=== PATIENT | male | born 1950 | race Caucasian/White ===

== ENCOUNTER 2021-09-05 08:39 | Emergency (ER) | payer MEDICARE, MEDICAID, SELFPAY ==
--- NOTE | ~2021-09-05 | XR_ITS ---
EXAMINATION: XR knee RT min 4V DATE: 09/05/2021 09:56 INDICATION: Diffuse right knee pain post fall 3 months prior TECHNIQUE: Anteroposterior, 2 oblique and crosstable lateral views of the right knee were obtained COMPARISON: None. FINDINGS: Alignment is normal. No fracture. Chondrocalcinosis at the medial and lateral compartments. Mild darwin nt space narrowing and small marginal osteophytes at the medial compartment. Tiny marginal osteophyte s at the lateral and patellofemoral compartments. No joint effusion/layering lipohemarthrosis. Small enthesophyte at the proximal pole of the patella. Soft tissues are unremarkable. IMPRESSION: 1. Chondrocalcinosis and mild medial compartment predominant tricompartmental osteoarthritis at the r ight knee. Reviewed, dictated and finalized at location A. [facility] IMPRESSION: 1. Chondrocalcinosis and mild medial compartment predominant tricompartmental o steoarthritis at the right knee.
[2021-09-05 08:53] VITALS: BP 119/71; PULSE 80; RESP 16; TEMP 36.4; O2SAT 97
--- NOTE | 2021-09-05 09:33 | ED.LOWEXIN ---
HPI - Extremity Injury (Lower) General Chief Complaint: Extremity Injury, Lower Stated Complaint: right knee pain Time Seen by Provider: 09/05/21 09:28 Source: patient and RN notes reviewed Mode of arrival: ambulatory Limitations: no limitations History of Present Illness HPI Narrative: 71-year-old male presents the concern for right knee pain. He reports he fell landing on the anterior knee 3 months ago. Reports since then he has had right knee pain, swelling. Reports he is used Tylenol, ice and elevation. Reports worsening pain with weightbearing. Reports he has been using a cane to assist him with ambulation. Reports the knee has given out several times. Reports he has an appointment with orthopedics at the end of September for evaluation of the knee. He denies any redness, warmth, fever, open skin. MD complaint: knee injury Related Data Allergies Allergy/AdvReac Type Severity Reaction Status Date / Time No Known Allergies Allergy Verified 09/05/21 09:26 Review of Systems Review of Systems: CONSTITUTIONAL: Denies malaise, chills, sweats, or fever. SKIN: Denies rash or itching, redness, warmth, open skin MUSCULOSKELETAL: Reports right knee pain and swelling NEUROLOGIC: Denies numbness, weakness All systems reviewed & are unremarkable except as noted in HPI and below PMFSH Past Medical History Medical History (Updated 09/05/21 @ 10:08 by Nena Armenta NP) Anxiety Arthritis Back fracture T12 fracture in 1992. COPD (chronic obstructive pulmonary disease) Depression History of fracture of left hip Melanoma Melanoma x2 excised from the chest. Prostate cancer Recently discovered on biopsy. Apparently low-grade and is being followed by surveillance. 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 Tobacco use disorder, severe, dependence Surgical History Surgical History History of back surgery Hx of appendectomy Status post surgical removal of malignant neoplasm of skin Including melanoma from the chest and basal cell carcinoma from the cheek and arms. Status post-operative repair of closed fracture of left hip Family History Family History Mother Congestive heart failure Social History Social History Social History: The patient is to his 3rd in a lives in [place]. He has 12 children and is expecting a baby sometime next spring. He is retired from working for the [employer]. He designates his , Nicole, as his surrogate decision maker and he wishes to be a full code. Smoking packs per day: 2 Smoking cigarettes per day: 40.0 Years smoked: 50 Smoking pack-years: 100.00 Smoking status: Current every day smoker Tobacco type: cigarettes Alcohol intake: never Substance use: never Substance use type: does not use Gender identity (if verbalized by the patient): Male Spiritual care concerns: No Agree to blood products: Yes Comments At time of signature, agree with nursing past medical, surgical, social and family history. There is no relevant family history pertinent to the presenting complaint Exam Narrative: GENERAL: Well-appearing, well-nourished, and in no acute distress. HEAD: Normocephalic, atraumatic. EYES: PERRLA, conjunctivae clear NECK: Supple. CHEST: Speaks in full sentences. No respiratory distress. HEART: Regular rate and rhythm. Normal and equal peripheral pulses. EXTREMITIES: Right knee has normal strength and sensation. Mild edema, no ecchymosis. 5/5 strength with knee flexion and extension. Normal sensation with sensitivity to light touch and pain. No point tenderness. No open wounds, no skin tenting, no devitalized tissue or atrophy, no trophic changes, no obvious deformity, alignment normal, nearby joints and
== END 2021-09-05 10:20 | disposition home or self-care (01) ==
PROVIDERS: Emergency Provider Nurse Practitioner; PCP Family Medicine
DX: M76.9 Unspecified enthesopathy, lower limb, excluding foot (principal); M11.261 Other chondrocalcinosis, right knee; F17.210 Nicotine dependence, cigarettes, uncomplicated; M19.90 Unspecified osteoarthritis, unspecified site; J44.9 Chronic obstructive pulmonary disease, unspecified; F41.9 Anxiety disorder, unspecified; F32.A Depression, unspecified; Z85.820 Personal history of malignant melanoma of skin; Z85.818 Personal history of malignant neoplasm of other sites of lip, oral cavity, and pharynx; Z92.21 Personal history of antineoplastic chemotherapy; Z92.3 Personal history of irradiation
CPT/HCPCS: 73564; 99213; G0463

== ENCOUNTER 2021-11-20 15:06 | Emergency (ER) | payer MEDICARE, MEDICAID, SELFPAY ==
[2021-11-20 15:34] VITALS: BP 115/78; PULSE 75; RESP 18; TEMP 36.7; O2SAT 95
--- NOTE | 2021-11-20 15:41 | ED.UPPEXIN ---
HPI - Extremity Injury (Upper) General Chief Complaint: Extremity Injury, Upper Stated Complaint: shoulder injury Time Seen by Provider: 11/20/21 15:50 Source: patient, RN notes reviewed and old records reviewed Mode of arrival: ambulatory Limitations: no limitations History of Present Illness HPI narrative: 71-year-old [facility] of right upper back pain under right shoulder blade x2 weeks. 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 Pain has been constant since then, reports pain is 7 out of 10 at rest, and 10 out of 10 with movement. Pain worse when raising right arm. Denies numbness or tingling in right arm. Reports pain when laying down and trying to sleep. Has taken ibuprofen a couple times. Took Tylenol 2 tabs this morning, and usually twice daily. Has been applying ice, feels that may be helpful. Has been applying topical pain medicine, is not sure its helping. Has continued to work. States they still have work to do. Denies chest pain or pressure. Some parts of this dictation were generated by voice recognition software and may contain typographical and/or grammatical inaccuracies. complaint: injury to: right Handedness: right Related Data Allergies Allergy/AdvReac Type Severity Reaction Status Date / Time No Known Allergies Allergy Verified 11/20/21 15:44 Review of Systems Review of Systems: CONSTITUTIONAL: Denies fever, chills, or sweats. EYES: Denies visual changes, redness, or discharge. ENT: Denies rhinorrhea, congestion, sore throat, or otalgia. CARDIOVASCULAR: Denies chest pain, palpitations, or edema. RESPIRATORY: Denies cough or dyspnea. GASTROINTESTINAL: Denies abdominal pain, nausea, vomiting, or diarrhea. GENITOURINARY: Denies dysuria or hematuria. SKIN: Denies rash or itching. MUSCULOSKELETAL: Right upper back pain, under right shoulder blade. NEUROLOGIC: Denies headache, numbness, or weakness. PSYCHIATRIC: Denies anxiety or depression. All other systems reviewed are negative, except as documented in HPI. All systems reviewed & are unremarkable except as noted in HPI and below PMFSH Past Medical History Medical History (Updated 11/20/21 @ 16:15 by Radha Henry, SANDER) Anxiety Arthritis Asthma Back fracture T12 fracture in 1992. COPD (chronic obstructive pulmonary disease) Depression History of fracture of left hip Melanoma Melanoma x2 excised from the chest. Prostate cancer Recently discovered on biopsy. Apparently low-grade and is being followed by surveillance. 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 Tobacco use disorder, severe, dependence Surgical History Surgical History History of back surgery Hx of appendectomy Status post surgical removal of malignant neoplasm of skin Including melanoma from the chest and basal cell carcinoma from the cheek and arms. Status post-operative repair of closed fracture of left hip Family History Family History Mother Congestive heart failure Social History Social History Social History: The patient is to his 3rd in a lives in [place]. He has 12 children and is expecting a baby sometime next spring. He is retired from working for the [employer]. He designates his , Nicole, as his surrogate decision maker and he wishes to be a full code. Smoking packs per day: 1 Smoking cigarettes per day: 20.0 Years smoked: 55 Smoking pack-years: 55.00 Smoking status: Current every day smoker Tobacco type: cigarettes Alcohol intake: never Substance use: never Substance use type: does not use Gender identity (if verbalized by the patient): Male Spiritual
== END 2021-11-20 16:25 | disposition home or self-care (01) ==
PROVIDERS: Emergency Provider Nurse Practitioner Family; PCP Family Medicine
DX: M54.6 Pain in thoracic spine (principal); F17.210 Nicotine dependence, cigarettes, uncomplicated; M19.90 Unspecified osteoarthritis, unspecified site; J44.9 Chronic obstructive pulmonary disease, unspecified; Z85.820 Personal history of malignant melanoma of skin; Z85.828 Personal history of other malignant neoplasm of skin; Z85.46 Personal history of malignant neoplasm of prostate; Z85.818 Personal history of malignant neoplasm of other sites of lip, oral cavity, and pharynx; Z92.21 Personal history of antineoplastic chemotherapy; Z92.3 Personal history of irradiation
CPT/HCPCS: 99213; G0463

== ENCOUNTER 2021-12-17 10:50 | Emergency (ER) | payer MEDICARE, MEDICAID, SELFPAY ==
--- NOTE | ~2021-12-17 | XR_ITS ---
EXAMINATION: XR chest 2V DATE: 12/17/2021 11:16 INDICATION: 2 weeks of productive cough TECHNIQUE: PA and lateral views of the chest were obtained. COMPARISON: Chest radiograph dated 09/08/2019 FINDINGS: Small calcified nodule at the left costophrenic angle consistent with old granulomatous disease. Mild left apical pleural-parenchymal scarring. No other airspace opacities, pulmonary edema, pleural effu jonah or pneumothorax., The cardiomediastinal silhouette is normal. Thoracic kyphosis. Incompletely vi sualized instrumented posterior spinal fusion extending caudally from T9 into the upper lumbar spine and beyond the inferior margin of the [id number] with bilateral vertical rods and laminar wire and hook fixation. This spans chronic compression fractures, mild at T10 and severe with 80% anterior ve rtebral body height loss at T12. IMPRESSION: 1. No acute cardiopulmonary disease. Reviewed, dictated and finalized at location A.
--- NOTE | 2021-12-17 10:58 | ED.URI ---
HPI - URI/Sore Throat General Chief Complaint: Upper Respiratory Infection Stated Complaint: Cough Time Seen by Provider: 12/17/21 10:58 Source: patient Mode of arrival: ambulatory Limitations: no limitations History of Present Illness HPI Narrative: 71-year-old male with history of COPD presents with complaint of cough and chest congestion for 2 weeks. Denies fever chills. Does not use inhalers for his COPD. Has not been taking any [id number] medications to treat symptoms. States he coughs and coughs and coughs until he can get mucus out of his chest. States cough is constant, worse at night when laying in bed. Denies shortness of breath. All systems reviewed and negative except as noted above. Related Data Home Medications Medication Instructions Recorded Confirmed lorazepam 2 mg PO BID 12/17/21 12/17/21 omeprazole 40 mg PO DAILY 12/17/21 12/17/21 Allergies Allergy/AdvReac Type Severity Reaction Status Date / Time No Known Allergies Allergy Verified 12/17/21 10:54 Review of Systems Review of Systems: CONSTITUTIONAL: Denies fever, chills, or sweats. EYES: Denies visual changes, redness, or discharge. ENT: Denies rhinorrhea, congestion, sore throat, or otalgia. CARDIOVASCULAR: Denies chest pain, palpitations, or edema. RESPIRATORY: Reports cough. Denies dyspnea. GASTROINTESTINAL: Denies abdominal pain, nausea, vomiting, or diarrhea. GENITOURINARY: Denies dysuria or hematuria. SKIN: Denies rash or itching. MUSCULOSKELETAL: Denies back pain, joint pain, or myalgia. NEUROLOGIC: Denies headache, numbness, or weakness. PSYCHIATRIC: Denies anxiety or depression. All other systems reviewed are negative, except as documented in HPI. [facility] Past Medical History Medical History (Updated 12/17/21 @ 12:08 by Krystle Acuna NP) Anxiety Arthritis Asthma Back fracture T12 fracture in 1992. COPD (chronic obstructive pulmonary disease) Depression History of fracture of left hip Melanoma Melanoma x2 excised from the chest. Prostate cancer Recently discovered on biopsy. Apparently low-grade and is being followed by surveillance. 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 Tobacco use disorder, severe, dependence Surgical History Surgical History History of back surgery Hx of appendectomy Status post surgical removal of malignant neoplasm of skin Including melanoma from the chest and basal cell carcinoma from the cheek and arms. Status post-operative repair of closed fracture of left hip Family History Family History Mother Congestive heart failure Social History Social History Social History: The patient is to his 3rd in a lives in [place]. He has 12 children and is expecting a baby sometime next spring. He is retired from working for the [employer]. He designates his , Nicole, as his surrogate decision maker and he wishes to be a full code. Smoking packs per day: 1 Smoking cigarettes per day: 20.0 Years smoked: 55 Smoking pack-years: 55.00 Smoking status: Current every day smoker Tobacco type: cigarettes Alcohol intake: never Substance use: never Substance use type: does not use Gender identity (if verbalized by the patient): Male Spiritual care concerns: No Agree to blood products: Yes Comments At time of signature, agree with nursing past medical, surgical, social and family history. There is no relevant family history pertinent to the presenting complaint. Exam Narrative: GENERAL: This is a well-nourished, well-developed patient, in no apparent distress. HEAD: normocephalic, atraumatic. EYES: PERRL. Sclera clear/white. Vision is grossly intact. EARS: External ears normal, auditory can
[2021-12-17 10:59] VITALS: BP 109/75; PULSE 85; RESP 20; TEMP 36.4; O2SAT 95
[2021-12-17 11:30] VITALS: PULSE 90; RESP 20; O2SAT 95
[2021-12-17] MEDS: ALBUTEROL SULFATE NEB 2.5 MG/3 ML INH INHALATION (11:30)
[2021-12-17 12:00] VITALS: PULSE 92; RESP 20; O2SAT 97
== END 2021-12-17 12:13 | disposition home or self-care (01) ==
PROVIDERS: Emergency Provider Nurse Practitioner Family; PCP Family Medicine
DX: J44.1 Chronic obstructive pulmonary disease with (acute) exacerbation (principal); F17.210 Nicotine dependence, cigarettes, uncomplicated; M19.90 Unspecified osteoarthritis, unspecified site; Z85.820 Personal history of malignant melanoma of skin; Z85.46 Personal history of malignant neoplasm of prostate; Z85.818 Personal history of malignant neoplasm of other sites of lip, oral cavity, and pharynx
CPT/HCPCS: 71046; 94640; 99213; G0463

== ENCOUNTER 2023-01-28 08:36 | Outpatient (CLI) | payer OTHER, SELFPAY ==
[2023-01-28 08:48] LABS: Basophils Percent Auto 0.5 % (0.2-1.2); Eosinophils Absolute Auto 0.3 K/mm3 (0-0.3); Eosinophils Percent Auto 5.5 % (0-4.4); Hematocrit 43.7 % (42.0-52.0); Immature Granulocyte Absolute 0.01 K/mm3 (0.00-0.031); Immature Granulocyte Percent A 0.2 % (0-0.5); Lymphocytes Absolute Auto 1.25 K/mm3 (0.9-3.2); Mean Corpuscular Hemoglobin 30.2 pg (26-34); Mean Corpuscular Volume 94.4 fl (80-100); Mean Platelet Volume 9.5 fl (7.4-10.4); Monocytes Absolute Auto 0.5 K/mm3 (0.1-0.6); Monocytes Percent Auto 8.8 % (2.6-8.5); Neutrophils Absolute Auto 3.6 K/mm3 (1.3-6.7); Platelet Count Result 228 k/mm3 (150-375); Red Blood Count 4.63 M/mm3 (4.6-6.20); Red Cell Distribution Width 13.5 % (11.5-14.5); White Blood Count 5.7 K/mm3 (4.5-10.0)
[2023-01-28 09:25] LABS: Alanine Aminotransferase 40 U/L (6-50); Albumin Level 4.5 g/dL (3.5-5.1); Alkaline Phosphatase 74 U/L (38-126); Anion Gap 4 mmol/L (8-16); Aspartate Amino Transferase 39 U/L (17-59); Bilirubin,Total 0.7 mg/dL (0.2-1.3); Blood Urea Nitrogen 27 mg/dL (9-20); Calcium 8.7 mg/dL (8.4-10.2); Carbon Dioxide 35 mmol/L (22-30); Chloride 102 mmol/L (98-107); Cholesterol 183 mg/dL (0-200); Estimated Glomerular Filt Rate > 60; Glucose 106 mg/dL (65-110); HDL Direct 48 mg/dL; Potassium 4.9 mmol/L (3.4-5.0); Sodium 141 mmol/L (137-145); Triglycerides 53 mg/dL (<150)
[2023-01-28 09:36] LABS: LDL Cholesterol Direct 109 mg/dL
[2023-01-28 09:39] LABS: Hemoglobin A1C 5.7 % (<5.7)
== END 2023-01-28 08:37 | disposition home or self-care (01) ==
LOC: ANHLAB 08:38
PROVIDERS: Nurse Practitioner Family; PCP Family Medicine; Visit Provider Family Medicine
DX: Z00.00 Encounter for general adult medical examination without abnormal findings (principal); I10 Essential (primary) hypertension; E78.5 Hyperlipidemia, unspecified; R73.01 Impaired fasting glucose
CPT/HCPCS: 36415; 80053; 80061; 83036; 84443; 85025

== ENCOUNTER 2023-02-14 10:56 | Emergency (ER) | payer OTHER, SELFPAY ==
--- NOTE | 2023-02-14 11:01 | ED.NECK ---
HPI - Neck Pain/Injury General Chief Complaint: Neck Pain/Injury Stated Complaint: Neck Pain Time Seen by Provider: 02/14/23 11:25 Source: patient and RN notes reviewed Mode of arrival: ambulatory Limitations: no limitations History of Present Illness HPI Narrative: 72-year-old male presents with concern for right-sided neck pain and muscle spasm. He reports 6 day history of symptoms. Reports prior to his neck pain starting he was doing a lot of heavy work, shoveling, lifting heavy items, working in his garden. He denies any injury or trauma. Reports pain was mild at the 1st but he did more work and it hurt worse. Reports pain is that the base of the head to the right and radiates down to the right trapezius area. He reports it hurts to look up, it hurts to rotate the head left or right, it hurts worse to rotate to the right. He denies any mid cervical tenderness. He reports he has been using pain patches and Tylenol with little relief. He denies any weakness in any extremity, numbness or tingling in the fingers. He denies fever. He denies history of problems with his neck, neck injury. MD complaint: neck pain Related Data Home Medications Medication Instructions Recorded Confirmed phenelzine 15 mg tablet 15 mg PO TID 01/10/23 02/14/23 Allergies Allergy/AdvReac Type Severity Reaction Status Date / Time No Known Allergies Allergy Verified 02/14/23 11:08 Review of Systems Review of Systems: CONSTITUTIONAL: Denies malaise, chills, sweats, or fever. CARDIOVASCULAR: Denies chest pain, palpitations, or edema. RESPIRATORY: Denies cough or dyspnea. GASTROINTESTINAL: Denies abdominal pain, nausea, vomiting, diarrhea, loss of bowel function GENITOURINARY: Denies dysuria, hematuria, frequency, loss of bladder function. SKIN: Denies rash or itching. MUSCULOSKELETAL: Reports right-sided neck pain NEUROLOGIC: Denies numbness, weakness, or headache. All systems reviewed & are unremarkable except as noted in HPI and below PMFSH Past Medical History Medical History (Updated 02/14/23 @ 11:31 by Nena Armenta NP) Anxiety Arthritis Asthma Back fracture T12 fracture in 1992. COPD (chronic obstructive pulmonary disease) Depression GERD without esophagitis History of fracture of left hip Hyperlipidemia Melanoma Melanoma x2 excised from the chest. Prostate cancer Recently discovered on biopsy. Apparently low-grade and is being followed by surveillance. 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 Tobacco use disorder, severe, dependence Surgical History Surgical History History of back surgery Hx of appendectomy Status post surgical removal of malignant neoplasm of skin Including melanoma from the chest and basal cell carcinoma from the cheek and arms. Status post-operative repair of closed fracture of left hip Family History Family History Mother Congestive heart failure Social History Social History (Updated 01/10/23 @ 10:00 by Mary Jurado NP) Social History: The patient is to his 3rd and lives in [place]. He has 13 children, youngest is 3. He is retired, worked for the [employer]. He designates his , Nicole, as his surrogate decision maker and he wishes to be a full code. Smoking packs per day: 1 Smoking cigarettes per day: 20.0 Years smoked: 55 Smoking pack-years: 55.00 Smoking status: Current every day smoker Tobacco type: cigarettes Alcohol intake: never Substance use: never Substance use type: does not use Lack of Transportation: No Lack of Food: Never True Current Housing: I Have Housing Concerned About Future Housing: No Difficulty Paying Gas/Electric Bills: No Difficulty Paying for Meds: No Currently Unemployed: No Education: Bachelor
[2023-02-14 11:03] VITALS: BP 111/76; PULSE 76; RESP 18; TEMP 36.7; O2SAT 98
== END 2023-02-14 11:40 | disposition home or self-care (01) ==
PROVIDERS: Emergency Provider Nurse Practitioner; PCP Family Medicine
DX: M43.6 Torticollis (principal); F17.210 Nicotine dependence, cigarettes, uncomplicated; M19.90 Unspecified osteoarthritis, unspecified site; J45.909 Unspecified asthma, uncomplicated; E78.5 Hyperlipidemia, unspecified; K21.9 Gastro-esophageal reflux disease without esophagitis; Z85.820 Personal history of malignant melanoma of skin; Z85.46 Personal history of malignant neoplasm of prostate; Z85.89 Personal history of malignant neoplasm of other organs and systems
CPT/HCPCS: 99213; G0463

== ENCOUNTER 2023-05-19 10:49 | Emergency (ER) | payer OTHER, SELFPAY ==
[2023-05-19 11:02] VITALS: BP 93/69; PULSE 78; RESP 16; TEMP 36.3; O2SAT 99
--- NOTE | 2023-05-19 11:55 | ED.GENADULT ---
HPI - General Adult General Chief complaint: Extremity Problem,Nontraumatic Stated complaint: Rt Side Pain Time Seen by Provider: 05/19/23 11:55 Source: patient Mode of arrival: ambulatory Limitations: no limitations History of Present Illness HPI narrative: 72-year-old male patient presents to the [facility] with complaints of right-sided rib pain. Patient states he has working outside a lot recently digging holes and picking pairs out of a tree with lot of reaching. Patient states for the past 3 days he has had some musculoskeletal rib pain. Denies taking anything for his pain. Denies any falls or traumas. Patient states it is sore whenever he coughs or takes a deep breathing. Patient does have history of COPD and currently still smokes Related Data Home Medications Medication Instructions Recorded Confirmed sildenafil 25 mg tablet 25 mg PO PRN PRN Erectile 05/19/23 05/19/23 Dysfunction Allergies Allergy/AdvReac Type Severity Reaction Status Date / Time No Known Allergies Allergy Verified 05/19/23 10:53 Review of Systems Review of Systems: CONSTITUTIONAL: Denies fever, chills, or sweats. EYES: Denies visual changes, redness, or discharge. ENT: Denies rhinorrhea, congestion, sore throat, or otalgia. CARDIOVASCULAR: positive right-sided chest /rib pain, palpitations, or edema. RESPIRATORY: Denies cough or dyspnea. GASTROINTESTINAL: Denies abdominal pain, nausea, vomiting, or diarrhea. GENITOURINARY: Denies dysuria or hematuria. SKIN: Denies rash or itching. MUSCULOSKELETAL: Denies back pain, joint pain, or myalgia. NEUROLOGIC: Denies headache, numbness, or weakness. PSYCHIATRIC: Denies anxiety or depression. [facility] Past Medical History Medical History Anxiety Arthritis Asthma Back fracture T12 fracture in 1992. COPD (chronic obstructive pulmonary disease) Depression GERD without esophagitis History of fracture of left hip Hyperlipidemia Melanoma Melanoma x2 excised from the chest. Prostate cancer Recently discovered on biopsy. Apparently low-grade and is being followed by surveillance. 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 Tobacco use disorder, severe, dependence Surgical History Surgical History History of back surgery Hx of appendectomy Status post surgical removal of malignant neoplasm of skin Including melanoma from the chest and basal cell carcinoma from the cheek and arms. Status post-operative repair of closed fracture of left hip Family History Family History Mother Congestive heart failure Social History Social History Social History: The patient is to his 3rd and lives in [place]. He has 13 children, youngest is 3. He is retired, worked for the [employer]. He designates his , Nicole, as his surrogate decision maker and he wishes to be a full code. Smoking packs per day: 1 Smoking cigarettes per day: 20.0 Years smoked: 55 Smoking pack-years: 55.00 Smoking status: Current every day smoker Tobacco type: cigarettes Alcohol intake: never Substance use: never Substance use type: does not use Lack of Transportation: No Lack of Food: Never True Current Housing: I Have Housing Concerned About Future Housing: No Difficulty Paying Gas/Electric Bills: No Difficulty Paying for Meds: No Currently Unemployed: No Education: Bachelor's Degree Difficulty w/ Childcare or Family Care: No Living arrangements: with family Additional living arrangements comments: Occupation/Education: retired Gender identity (if verbalized by the patient): Male Sexual Orientation (if Verbalized by the Patient): Straight or H
== END 2023-05-19 12:10 | disposition home or self-care (01) ==
PROVIDERS: Emergency Provider Nurse Practitioner Family; PCP Family Medicine
DX: R07.89 Other chest pain (principal); F17.210 Nicotine dependence, cigarettes, uncomplicated; M19.90 Unspecified osteoarthritis, unspecified site; J44.9 Chronic obstructive pulmonary disease, unspecified; E78.5 Hyperlipidemia, unspecified; Z08 Encounter for follow-up examination after completed treatment for malignant neoplasm; Z85.820 Personal history of malignant melanoma of skin; Z85.46 Personal history of malignant neoplasm of prostate; Z85.818 Personal history of malignant neoplasm of other sites of lip, oral cavity, and pharynx
CPT/HCPCS: 99211; G0463

== ENCOUNTER 2023-06-01 14:54 | Emergency (ER) | payer OTHER, SELFPAY ==
--- NOTE | ~2023-06-01 | XR_ITS ---
EXAMINATION: XR chest 2V Exam Date/Time: 06/01/2023 15:28 CDT HISTORY: SOB and cough X's 1 week Comparison: 12/17/2021. RESULT: Lines, tubes, and devices: Partially visualized spinal stabilization hardware. Surgical clip over th e left clavicle. Lungs and pleura: Calcified granulomas. Emphysematous/senescent change. No focal consolidation. Cardiomediastinal silhouette: Stable. Other: No acute osseous or upper abdominal finding. IMPRESSION: No acute cardiopulmonary process. Reviewed, dictated and finalized at location K.
[2023-06-01 15:03] VITALS: BP 98/60; PULSE 104; RESP 18; TEMP 37; O2SAT 96
--- NOTE | 2023-06-01 15:20 | ED.GENADULT ---
HPI - General Adult General Chief complaint: Upper Respiratory Infection Stated complaint: Cough,Congestion,Loss of Apetite,Lethargic Time Seen by Provider: 06/01/23 15:20 Source: patient Mode of arrival: ambulatory Limitations: no limitations History of Present Illness HPI narrative: 72-year-old male patient presents to the [facility] with complaints of cold symptoms for the past week. Patient states he has had congestion, runny nose, cough, shortness of breath. Denies fevers but states feels very fatigued and tired all the time. Patient states he did come into contact with his neighbor who ended up having COVID. Patient denies any chest pain currently. Patient is an active smoker and does have history of patient states he has been vaccinated for COVID. Related Data Home Medications Medication Instructions Recorded Confirmed sildenafil 25 mg tablet 25 mg PO PRN PRN Erectile 05/19/23 06/01/23 Dysfunction Allergies Allergy/AdvReac Type Severity Reaction Status Date / Time No Known Allergies Allergy Verified 06/01/23 14:55 Review of Systems Review of Systems: CONSTITUTIONAL: Denies fever, chills, or sweats. EYES: Denies visual changes, redness, or discharge. ENT: positive rhinorrhea, congestion, denies sore throat, or otalgia. CARDIOVASCULAR: Denies chest pain, palpitations, or edema. RESPIRATORY: Positive cough with dyspnea. GASTROINTESTINAL: Denies abdominal pain, nausea, vomiting, or diarrhea. GENITOURINARY: Denies dysuria or hematuria. SKIN: Denies rash or itching. MUSCULOSKELETAL: Denies back pain, joint pain, or myalgia. NEUROLOGIC: Denies headache, numbness, or weakness. PSYCHIATRIC: Denies anxiety or depression. [facility] Past Medical History Medical History Anxiety Arthritis Asthma Back fracture T12 fracture in 1992. COPD (chronic obstructive pulmonary disease) Depression GERD without esophagitis History of fracture of left hip Hyperlipidemia Melanoma Melanoma x2 excised from the chest. Prostate cancer Recently discovered on biopsy. Apparently low-grade and is being followed by surveillance. 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 Tobacco use disorder, severe, dependence Surgical History Surgical History History of back surgery Hx of appendectomy Status post surgical removal of malignant neoplasm of skin Including melanoma from the chest and basal cell carcinoma from the cheek and arms. Status post-operative repair of closed fracture of left hip Family History Family History Mother Congestive heart failure Social History Social History Social History: The patient is to his 3rd and lives in [place]. He has 13 children, youngest is 3. He is retired, worked for the [employer]. He designates his , Nicole, as his surrogate decision maker and he wishes to be a full code. Smoking packs per day: 1 Smoking cigarettes per day: 20.0 Years smoked: 55 Smoking pack-years: 55.00 Smoking status: Current every day smoker Tobacco type: cigarettes Alcohol intake: never Substance use: never Substance use type: does not use Lack of Transportation: No Lack of Food: Never True Current Housing: I Have Housing Concerned About Future Housing: No Difficulty Paying Gas/Electric Bills: No Difficulty Paying for Meds: No Currently Unemployed: No Education: Bachelor's Degree Difficulty w/ Childcare or Family Care: No Living arrangements: with family Additional living arrangements comments: Occupation/Education: retired Gender identity (if verbalized by the patient): Male Sexual Orientation (if Verbalized by the Patient):
[2023-06-01] MEDS: IPRATROPIUM BR 0.02% INH SOLN 0.5 MG/2.5 ML VIAL INHALATION (15:43)
[2023-06-01] MEDS: ALBUTEROL SULFATE NEB 2.5 MG/3 ML INH INHALATION (15:43)
[2023-06-01 15:45] VITALS: PULSE 82; RESP 22; O2SAT 96
[2023-06-01 16:12] VITALS: PULSE 86; RESP 18; O2SAT 97
== END 2023-06-01 16:30 | disposition home or self-care (01) ==
PROVIDERS: Emergency Provider Nurse Practitioner Family; PCP Family Medicine
DX: J40 Bronchitis, not specified as acute or chronic (principal); J06.9 Acute upper respiratory infection, unspecified; Z20.822 Contact with and (suspected) exposure to COVID-19; F17.210 Nicotine dependence, cigarettes, uncomplicated; M19.90 Unspecified osteoarthritis, unspecified site; J44.9 Chronic obstructive pulmonary disease, unspecified; E78.5 Hyperlipidemia, unspecified; Z85.820 Personal history of malignant melanoma of skin; Z85.828 Personal history of other malignant neoplasm of skin; Z85.46 Personal history of malignant neoplasm of prostate; Z85.818 Personal history of malignant neoplasm of other sites of lip, oral cavity, and pharynx; F41.9 Anxiety disorder, unspecified
CPT/HCPCS: 71046; 87426; 94640; 99213; C9803; G0463

== ENCOUNTER 2023-06-27 08:36 | Outpatient (CLI) | payer OTHER, SELFPAY ==
[2023-06-27 10:32] LABS: Prostate Specific Antigen 1.2 ng/mL (< OR = 4.0)
== END 2023-06-27 08:37 | disposition home or self-care (01) ==
PROVIDERS: Radiology Radiation Oncology; PCP Family Medicine; Visit Provider Internal Medicine Hematology & Oncology
DX: C61 Malignant neoplasm of prostate (principal)
CPT/HCPCS: 36415; 84153

== ENCOUNTER 2023-09-30 08:32 | Emergency (ER) | payer OTHER, SELFPAY ==
[2023-09-30 08:40] VITALS: BP 116/67; PULSE 76; RESP 16; TEMP 36.3; O2SAT 94
[2023-09-30 08:45] VITALS: BP 116/67; PULSE 76; RESP 16; TEMP 36.3; O2SAT 94
--- NOTE | 2023-09-30 08:56 | ED.EAR ---
HPI - Ear Problem General Chief complaint: Ear Stated complaint: Clogged Ears Time Seen by Provider: 09/30/23 08:50 Source: patient Mode of arrival: ambulatory Limitations: no limitations History of Present Illness HPI Narrative: Rogelio is a 73-year-old male patient presenting to the clinic today requesting his ears to be cleaned out. He reports that he was seen by his doctor recently and they told him that he had a lot of wax in his ears. Patient is reporting decreased hearing as well as the wax giving him headaches. Patient's PCP attempted to remove ear wax but was unsuccessful. Patient reports that he has a ENT follow-up but is not until next month.. Related Data Home Medications Medication Instructions Recorded Confirmed sildenafil 25 mg tablet 25 mg PO PRN PRN Erectile 05/19/23 09/30/23 Dysfunction lorazepam 2 mg tablet 2 mg PO BID PRN Anxiety 09/30/23 09/30/23 Allergies Allergy/AdvReac Type Severity Reaction Status Date / Time No Known Allergies Allergy Verified 09/30/23 08:43 Review of Systems Review of Systems: Pertinent positives per HPI. Patient denies any fever, chills, rash, headache, visual changes, dizziness, cough, runny nose, sore throat, shortness of breath, chest pain, palpitations, nausea, vomiting, diarrhea, constipation, abdominal pain, or any urinary issues. [facility] Past Medical History Medical History Anxiety Arthritis Asthma Back fracture T12 fracture in 1992. COPD (chronic obstructive pulmonary disease) Depression GERD without esophagitis History of fracture of left hip Hyperlipidemia Impacted cerumen of both ears Melanoma Melanoma x2 excised from the chest. Prostate cancer Recently discovered on biopsy. Apparently low-grade and is being followed by surveillance. 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 Tobacco use disorder, severe, dependence Surgical History Surgical History History of back surgery Hx of appendectomy Status post surgical removal of malignant neoplasm of skin Including melanoma from the chest and basal cell carcinoma from the cheek and arms. Status post-operative repair of closed fracture of left hip Family History Family History Mother Congestive heart failure Social History Social History Social History: The patient is to his 3rd and lives in [place]. He has 13 children, youngest is 3. He is retired, worked for the [employer]. He designates his , Nicole, as his surrogate decision maker and he wishes to be a full code. Smoking packs per day: 1 Smoking cigarettes per day: 20.0 Years smoked: 55 Smoking pack-years: 55.00 Smoking status: Current every day smoker Tobacco type: cigarettes Alcohol intake: never Substance use: never Substance use type: does not use Lack of Transportation: No Lack of Food: Never True Current Housing: I Have Housing Concerned About Future Housing: No Difficulty Paying Gas/Electric Bills: No Difficulty Paying for Meds: No Currently Unemployed: No Education: Bachelor's Degree Difficulty w/ Childcare or Family Care: No Living arrangements: with family Additional living arrangements comments: Occupation/Education: retired Gender identity (if verbalized by the patient): Male Sexual Orientation (if Verbalized by the Patient): Straight or Heterosexual Spiritual care concerns: No Agree to blood products: Yes Comments At the time of my signature, I reviewed and agree with the nursing past medical, surgical, social, and family history. There is no relevant family history pertinent to the patient complaint. Course Course Em
== END 2023-09-30 09:20 | disposition home or self-care (01) ==
PROVIDERS: Emergency Provider Nurse Practitioner Family; PCP Family Medicine
DX: H61.23 Impacted cerumen, bilateral (principal); H60.93 Unspecified otitis externa, bilateral; F17.210 Nicotine dependence, cigarettes, uncomplicated; J44.9 Chronic obstructive pulmonary disease, unspecified; K21.9 Gastro-esophageal reflux disease without esophagitis; R78.5 Finding of other psychotropic drug in blood; F41.9 Anxiety disorder, unspecified; Z85.828 Personal history of other malignant neoplasm of skin; Z85.820 Personal history of malignant melanoma of skin; Z85.46 Personal history of malignant neoplasm of prostate; Z85.818 Personal history of malignant neoplasm of other sites of lip, oral cavity, and pharynx; Z92.21 Personal history of antineoplastic chemotherapy; Z92.3 Personal history of irradiation
CPT/HCPCS: 69210 ×2; 99213; G0463

== ENCOUNTER 2024-01-02 09:28 | Outpatient (CLI) | payer OTHER, SELFPAY ==
[2024-01-02 12:32] LABS: Prostate Specific Antigen 0.4 ng/mL (< OR = 4.0)
== END 2024-01-02 09:29 | disposition home or self-care (01) ==
LOC: ANHLAB 09:30
PROVIDERS: Radiology Radiation Oncology; PCP Family Medicine; Visit Provider Internal Medicine Hematology & Oncology
DX: C61 Malignant neoplasm of prostate (principal)
CPT/HCPCS: 36415; 84153

== ENCOUNTER 2024-02-12 09:27 | Emergency (ER) | payer OTHER, SELFPAY ==
--- NOTE | ~2024-02-12 | XR_ITS ---
XR hip RT 2V w AP pelvis DATE: 02/12/2024 09:53 INDICATION: Fall yesterday. Posterior right hip pain. TECHNIQUE: AP pelvis. AP and lateral views of right hip. COMPARISON: None FINDINGS: Surgical clips overlie the lower mid abdomen and mid pelvis. Surgical clips overlie the pro state bed. Compression screw and intramedullary nail of left femur. Mild osteoarthritis of the hip joints, left greater than right. No fracture or dislocation, avascular necrosis or bone destruction of the right hip is detected. Normal alignment of the pubic symphysis and sacral iliac joints. No pelvic fracture or bone destructi on is detected. IMPRESSION: Mild bilateral hip osteoarthritis, greater on the left No fracture or dislocation of the pelvis or right hip Intramedullary nail and compression screw of proximal left femur Postoperative change of the lower abdomen, pelvis and prostate area Reviewed, dictated and finalized at location B.
[2024-02-12 09:38] VITALS: BP 100/61; PULSE 72; RESP 16; TEMP 36.2; O2SAT 97
--- NOTE | 2024-02-12 10:13 | ED.LOWEXIN ---
HPI - Extremity Injury (Lower) General Chief Complaint: Extremity Injury, Lower Stated Complaint: Right Hip Injury Time Seen by Provider: 02/12/24 09:45 Source: patient and RN notes reviewed Mode of arrival: ambulatory Limitations: no limitations History of Present Illness HPI Narrative: Patient presents today with lateral and anterior hip pain. Yesterday he was working in his garden at home, when a brick in his retaining wall came loose, causing him to fall backwards onto his hip. He has been ambulatory since the injury. Denies numbness or tingling in the leg or foot. Currently rates his pain 8/10. He has been taking Tylenol and ibuprofen as well as using heat and ice with some relief. Related Data Home Medications Medication Instructions Recorded Confirmed sildenafil 25 mg tablet 25 mg PO PRN PRN Erectile 05/19/23 01/10/24 Dysfunction Allergies Allergy/AdvReac Type Severity Reaction Status Date / Time No Known Allergies Allergy Verified 01/10/24 08:32 Review of Systems Review of Systems: CONSTITUTIONAL: Denies body aches, fever, chills, or sweats. EYES: Denies visual changes, redness, or discharge. ENT: Denies rhinorrhea, congestion, sore throat, or otalgia. CARDIOVASCULAR: Denies chest pain, palpitations, or edema. RESPIRATORY: Denies cough or dyspnea. GASTROINTESTINAL: Denies abdominal pain, nausea, vomiting, or diarrhea. GENITOURINARY: Denies dysuria or hematuria. SKIN: Denies rash, itching, or wounds. MUSCULOSKELETAL: Denies back pain, or myalgia.+ right hip pain NEUROLOGIC: Denies headache, numbness, tingling, or weakness. PSYCH: Denies depression or anxiety. [facility] Past Medical History Medical History Anxiety Arthritis Asthma Back fracture T12 fracture in 1992. COPD (chronic obstructive pulmonary disease) Depression GERD without esophagitis History of fracture of left hip Hyperlipidemia Impacted cerumen of both ears Melanoma Melanoma x2 excised from the chest. Prostate cancer Recently discovered on biopsy. Apparently low-grade and is being followed by surveillance. 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 Tobacco use disorder, severe, dependence Surgical History Surgical History History of back surgery Hx of appendectomy Status post surgical removal of malignant neoplasm of skin Including melanoma from the chest and basal cell carcinoma from the cheek and arms. Status post-operative repair of closed fracture of left hip Family History Family History Mother Congestive heart failure Social History Social History Social History: The patient is to his 3rd and lives in [place]. He has 13 children, youngest is 3. He is retired, worked for the [employer]. He designates his , Nicole, as his surrogate decision maker and he wishes to be a full code. Smoking packs per day: 1 Smoking cigarettes per day: 20.0 Years smoked: 55 Smoking pack-years: 55.00 Smoking status: Current every day smoker Tobacco type: cigarettes Alcohol intake: never Substance use: never Substance use type: does not use Lack of Transportation: No Lack of Food: Never True Current Housing: I Have Housing Concerned About Future Housing: No Difficulty Paying Gas/Electric Bills: No Difficulty Paying for Meds: No Currently Unemployed: No Education: Bachelor's Degree Difficulty w/ Childcare or Family Care: No Living arrangements: with family Additional living arrangements comments: Occupation/Education: retired Gender identity (if verbalized by the patient): Male Sexual Orientation (if Verbalized by the Patient): Str
== END 2024-02-12 10:19 | disposition home or self-care (01) ==
PROVIDERS: Emergency Provider Nurse Practitioner; PCP Family Medicine
DX: S70.01XA Contusion of right hip, initial encounter (principal); W19.XXXA Unspecified fall, initial encounter; F41.9 Anxiety disorder, unspecified; J44.9 Chronic obstructive pulmonary disease, unspecified; K21.9 Gastro-esophageal reflux disease without esophagitis; E78.5 Hyperlipidemia, unspecified; Z85.820 Personal history of malignant melanoma of skin; Z85.46 Personal history of malignant neoplasm of prostate; Z85.818 Personal history of malignant neoplasm of other sites of lip, oral cavity, and pharynx; Z85.828 Personal history of other malignant neoplasm of skin
CPT/HCPCS: 73502; 99213; G0463

== ENCOUNTER 2024-02-18 10:56 | Emergency (ER) | payer OTHER, SELFPAY ==
--- NOTE | ~2024-02-18 | XR_ITS ---
XR chest 2V 02/18/2024 11:38 Indication: Cough and congestion Procedure: 2 view chest Comparison: Comparison to multiple prior studies sequentially, with oldest reviewed study dated 11/06. Findings: Heart size normal. No focal air space disease, pulmonary edema, pleural effusion or suspect ed pneumothorax. There is a burst fracture of the lower thoracic spine. There are spinal rods overlyi ng the lower thoracic and upper lumbar spine traversing the fracture. No acute osseous abnormality. Impression: 1: No acute cardiopulmonary disease. Reviewed, dictated and finalized at location B. Impression: 1: No acute cardiopulmonary disease.
--- NOTE | ~2024-02-18 | XR_ITS ---
EXAMINATION: XR hip RT min 2V DATE: 02/18/2024 11:38 INDICATION: Right hip pain. Fall. TECHNIQUE: 2 views of right hip were obtained. COMPARISON: Right hip radiographs 02/12/2024, pelvis radiograph 10/12/2019 FINDINGS: There is a comminuted fracture of greater trochanter of right femur. The main distal fractu re fragment demonstrates anterior displacement. There is mild right hip osteoarthritis. Surgical clip s overlie the pelvis. IMPRESSION: 1. Comminuted fracture of right greater trochanter. 2. Mild right hip osteoarthritis. Reviewed, dictated and finalized at location A.
--- NOTE | ~2024-02-18 | XR_ITS ---
EXAMINATION: XR knee RT min 4V DATE: 02/18/2024 11:38 INDICATION: Right knee pain. Fall. TECHNIQUE: 4 views of right knee were obtained. COMPARISON: Right knee radiographs 01/02/2024 FINDINGS: Bone alignment is normal. No fracture. There is moderate osteoarthritis of medial compartme nt and mild osteoarthritis of lateral and patellofemoral compartments. There is chondrocalcinosis of the menisci. No knee joint effusion. IMPRESSION: 1. Moderate right knee osteoarthritis. Reviewed, dictated and finalized at location A.
--- NOTE | 2024-02-18 10:59 | ED.URI ---
HPI - URI/Sore Throat General Chief Complaint: Back Pain/Injury Stated Complaint: fall and cold symptoms Time Seen by Provider: 02/18/24 10:59 Source: patient Mode of arrival: ambulatory Limitations: no limitations History of Present Illness HPI Narrative: Rogelio is a 73-year-old male patient presenting to the clinic today with complaints of a ground level fall that occurred 4 days ago. 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 Is having pain to the knee and lateral right hip. He fell two days prior to this and had x-ray of the right hip completed at that time. Also is concerned about cough and chest congestion. States that this started on Saturday. He is bringing up some green phlegm. History of COPD and is a current smoker. Denies any increase in shortness of breath. Oxygen saturations 95% on room air. Related Data Home Medications Medication Instructions Recorded Confirmed sildenafil 25 mg tablet 25 mg PO PRN PRN Erectile 05/19/23 02/18/24 Dysfunction Allergies Allergy/AdvReac Type Severity Reaction Status Date / Time No Known Allergies Allergy Verified 02/18/24 11:21 Review of Systems Review of Systems: Pertinent positives per HPI. Patient denies any fever, chills, rash, headache, visual changes, dizziness, sore throat, shortness of breath, chest pain, palpitations, nausea, vomiting, diarrhea, constipation, abdominal pain, or any urinary issues. [facility] Past Medical History Medical History Anxiety Arthritis Asthma Back fracture T12 fracture in 1992. COPD (chronic obstructive pulmonary disease) Depression GERD without esophagitis History of fracture of left hip Hyperlipidemia Impacted cerumen of both ears Melanoma Melanoma x2 excised from the chest. Prostate cancer Recently discovered on biopsy. Apparently low-grade and is being followed by surveillance. 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 Tobacco use disorder, severe, dependence Surgical History Surgical History History of back surgery Hx of appendectomy Status post surgical removal of malignant neoplasm of skin Including melanoma from the chest and basal cell carcinoma from the cheek and arms. Status post-operative repair of closed fracture of left hip Family History Family History Mother Congestive heart failure Social History Social History Social History: The patient is to his 3rd and lives in [place]. He has 13 children, youngest is 3. He is retired, worked for the [employer]. He designates his , Nicole, as his surrogate decision maker and he wishes to be a full code. Smoking packs per day: 1 Smoking cigarettes per day: 20.0 Years smoked: 55 Smoking pack-years: 55.00 Smoking status: Current every day smoker Tobacco type: cigarettes Alcohol intake: never Substance use: never Substance use type: does not use Lack of Transportation: No Lack of Food: Never True Current Housing: I Have Housing Concerned About Future Housing: No Difficulty Paying Gas/Electric Bills: No Difficulty Paying for Meds: No Currently Unemployed: No Education: Bachelor's Degree Difficulty w/ Childcare or Family Care: No Living arrangements: with family Additional living arrangements comments: Occupation/Education: retired Gender identity (if verbalized by the patient): Male Sexual Orientation (if Verbalized by the Patient): Straight or Heterosexual Spiritual care concerns: No Agree to blood products: Yes Comment
[2024-02-18 11:11] VITALS: BP 111/64; PULSE 78; RESP 16; TEMP 36.4; O2SAT 95
== END 2024-02-18 12:56 | disposition home or self-care (01) ==
PROVIDERS: Emergency Provider Nurse Practitioner Family; PCP Family Medicine
DX: J44.1 Chronic obstructive pulmonary disease with (acute) exacerbation (principal); S72.111A Displaced fracture of greater trochanter of right femur, initial encounter for closed fracture; W01.0XXA Fall on same level from slipping, tripping and stumbling without subsequent striking against object, initial encounter; Z20.822 Contact with and (suspected) exposure to COVID-19; M19.90 Unspecified osteoarthritis, unspecified site; K21.9 Gastro-esophageal reflux disease without esophagitis; E78.5 Hyperlipidemia, unspecified; F41.9 Anxiety disorder, unspecified; F17.210 Nicotine dependence, cigarettes, uncomplicated; Z85.820 Personal history of malignant melanoma of skin; Z85.46 Personal history of malignant neoplasm of prostate; Z85.818 Personal history of malignant neoplasm of other sites of lip, oral cavity, and pharynx; Z85.828 Personal history of other malignant neoplasm of skin
CPT/HCPCS: 71046; 73502; 73564; 87426; 99214; G0463

== ENCOUNTER 2024-04-03 08:17 | Outpatient (CLI) | payer MEDICARE, SELFPAY ==
[2024-04-03 13:09] LABS: Prostate Specific Antigen 0.7 ng/mL (< OR = 4.0)
== END 2024-04-03 08:18 | disposition home or self-care (01) ==
LOC: ANHLAB 08:23
PROVIDERS: Radiology Radiation Oncology; PCP Family Medicine; Visit Provider Internal Medicine Hematology & Oncology
DX: Z12.5 Encounter for screening for malignant neoplasm of prostate (principal)
CPT/HCPCS: 36415; 84153; G0103

== ENCOUNTER 2024-07-28 08:05 | Emergency (ER) | payer OTHER, SELFPAY ==
--- NOTE | ~2024-07-28 | XR_ITS ---
XR ribs RT 2V w CXR 2V Ordering provider: Nelsy Mann APRN History: . pain; R arm numbness/tingling,no injury . Comparison: February 18, 2024 FINDINGS: BONES: Fracture of the right fourth, fifth and sixth ribs anteriorly. Postoperative changes in the th oracolumbar area. MEDIASTINUM: The cardiac silhouette is not enlarged. LUNGS: No infiltrates, effusions or pneumothorax. OTHER: No free air under the diaphragm. IMPRESSION: 1. Fracture of the right fourth, fifth and 6 ribs anteriorly. 2. No acute cardiopulmonary findings. Reviewed, dictated and finalized at location A. RPRETER TRANSLATOR
[2024-07-28 08:35] VITALS: BP 96/76; PULSE 76; RESP 16; TEMP 36.4; O2SAT 96
--- NOTE | 2024-07-28 08:50 | ECG_ITS ---
Test Date: 2024-07-28 08:47:14 Measurements Intervals [place] Rate: 68 P: 58 OH: 153 QRS: 26 QRSD: 101 T: 35 QT: 375 QTc: 399 Interpretive Statements SINUS RHYTHM MINIMAL Q WAVES- LAT/HIGH LAT LEADS BASELINE ARTIFACT- I, II, III, AVR, AVL AVF, V2-V6 BORDERLINE ECG No previous ECG available for comparison Electronically Signed On 07-28-2024 08:54:33 [employer] by Walt Millard D.O.
--- NOTE | 2024-07-28 09:48 | ED.GENADULT ---
HPI - General Adult General Chief complaint: Extremity Problem,Nontraumatic Stated complaint: rt arm and hand numbing + pain/ rib pain Time Seen by Provider: 07/28/24 08:48 Source: patient, RN notes reviewed and old records reviewed Mode of arrival: ambulatory Limitations: no limitations History of Present Illness HPI narrative: 74-year-old male to Express Care with complaint of right anterior rib pain for the past 4-6 weeks. Patient denies any known injury. Patient history of COPD. Patient also endorsing right arm numbness and tingling that occurs nightly sleeping. Patient denies chest pain, shortness of breath, allergies. patient able to tolerate fluids by mouth. Patient resting comfortably in exam room in no acute distress. Respirations even and nonlabored. Patient able to speak in complete sentences without difficulty. Related Data Allergies Allergy/AdvReac Type Severity Reaction Status Date / Time No Known Allergies Allergy Verified 07/28/24 08:37 Review of Systems Review of Systems: All systems reviewed & are unremarkable except as noted in HPI and below Constitutional: Constitutional: Reports no additional constitutional complaints Eyes: Eyes: Reports no additional eye complaints ENT: Reports system reviewed and no additional complaints, except as documented Cardiovascular: Cardiovascular: Reports no additional cardiovascular complaints, Denies chest pain and Denies dyspnea Respiratory: Respiratory: Reports no additional respiratory complaints, Denies cough and Denies dyspnea Musculoskeletal: Musculoskeletal: Reports no additional musculoskeletal complaints Neurologic: Reports system reviewed and no additional complaints, except as documented Psychiatric: Psychiatric: Reports no additional psychiatric complaints [facility] Past Medical History Medical History (Updated 07/28/24 @ 09:39 by Nelsy Mann, SANDER) Anxiety Arthritis Asthma Back fracture T12 fracture in 1992. COPD (chronic obstructive pulmonary disease) Depression GERD without esophagitis History of fracture of left hip Hx of malignant neoplasm of prostate Hyperlipidemia Melanoma Melanoma x2 excised from the chest. Prostate cancer Recently discovered on biopsy. Apparently low-grade and is being followed by surveillance. 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 Tobacco use disorder, severe, dependence Surgical History Surgical History History of back surgery Hx of appendectomy Status post surgical removal of malignant neoplasm of skin Including melanoma from the chest and basal cell carcinoma from the cheek and arms. Status post-operative repair of closed fracture of left hip Family History Family History Mother Congestive heart failure Social History Social History Social History: The patient is to his 3rd and lives in [place]. He has 13 children, youngest is 3. He is retired, worked for the [employer]. He designates his , Nicole, as his surrogate decision maker and he wishes to be a full code. Smoking packs per day: 1 Smoking cigarettes per day: 20.0 Years smoked: 55 Smoking pack-years: 55.00 Smoking status: Current every day smoker Tobacco type: cigarettes Alcohol intake: never Substance use: never Substance use type: does not use Lack of Transportation: No Lack of Food: Never True Current Housing: I Have Housing Concerned About Future Housing: No Difficulty Paying Gas/Electric Bills: No Difficulty Paying for Meds: No Currently Unemployed: No Education: Bachelor's Degree Difficulty w/ Childcare or Family Care: No Living arrangements: with family Additional living arrangements comments: Occupation/Education: retired Gender identity (if verbalized by the patient): Male Sexual Orientation (if Verbalized by the Patient): Straight or Heterosexual Spiritual care concerns: No Agree to blood products: Yes Comments At the time of my signature, I reviewed and agree with the nursing past medical, surgical, social, and family history. There is no relevant family history pertinent to the patient complaint. Exam Const: General: cooperative, healthy appearing, comfortable, no acute distress, alert and well nourished Nutritional Appearance: well nourished Orientation/consciousness: patient oriented x3 Limitations: no limitations HENMT: Head: normal to inspection Ears: external ears normal Face/Nose/Sinus: Normal external nose present, Normal nares present, normal facial exam, No erythema and No edema Face and sinus: normal facial exam, no erythema and no edema Mouth: Yes Normal oral and palatal mucosa present Eyes: General: appearance normal, both eyes and all related structures Neck: Neck: normal visual inspection, full ROM and no meningeal signs Lymphatic: no lymphadenopathy noted and no lymphedema noted Chest: Chest palpation & inspection: normal inspection of the chest Resp: Effort & Inspection: normal respiratory effort and able to speak in complete sentences Auscultation: clear to auscultation bilaterally Cardio: Jugular venous distension: no JVD Rate: regular rate Rhythm: regular rhythm Back/Spine/Pelvis: Cervical Spine: cervical ROM normal Skin: General skin exam: normal color, no rashes or lesions noted and turgor normal Neuro: General: patient oriented x3, gait normal, moves all extremities and no meningeal signs Speech: normal speech Gait exam (Neuro): Normal gait present Extrem: General: normal to inspection, full ROM and capillary refill normal Psych: Appearance: grossly normal and well kempt Course Course Emergency Course: Some parts of this dictation were generated by voice recognition software and may contain typographical and/or grammatical inaccuracies. Level of Care: Express Care Visit Vital Signs Vital signs: Vital Signs Temperature 36.4 C L 07/28/24 08:35 Pulse Rate 76 07/28/24 08:35 Respiratory Rate 16 07/28/24 08:35 Blood Pressure 96/76 L 07/28/24 08:35 Pulse Oximetry 96 07/28/24 08:35 Oxygen Delivery Room Air 07/28/24 08:35 Temperature 36.4 C L 07/28/24 08:35 Pulse Rate 76 07/28/24 08:35 Respiratory Rate 16 07/28/24 08:35 Blood Pressure 96/76 L 07/28/24 08:35 Pulse Oximetry 96 07/28/24 08:35 Oxygen Delivery Room Air 07/28/24 08:35 reviewed Medical Decision Making MDM Narrative Medical decision making narrative: 74-year-old male to Express Care with complaint of right anterior rib pain for the past 4-6 weeks. Patient denies any known injury. Patient history of COPD. Patient also endorsing right arm numbness and tingling that occurs nightly sleeping. Patient denies chest pain, shortness of breath, allergies. patient able to tolerate fluids by mouth. Patient resting comfortably in exam room in no acute distress. Respirations even and nonlabored. Patient able to speak in complete sentences without difficulty. Patient is sitting comfortably in exam room nontoxic in appearance. On exam, right anterior rib tenderness. Exam otherwise unremarkable. X-ray foot findings include fractures of 4th, 5th, 6th anterior ribs. 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 Still endorses no known injury. Patient appropriate for outpatient treatment and follow-up. Discharge instructions reviewed with patient, as well as provided in writing per nursing staff. The instructions also include specific and strict return/GO TO THE ER as well as f/u information. All questions have been answered, and the patient deny any further questions with discharge and discharge plan. Some parts of this dictation were generated by voice recognition software and may contain typographical and/or grammatical inaccuracies. Vital Signs Vital Signs: Vital Signs Temperature 36.4 C L 07/28/24 08:35 Pulse Rate 76 07/28/24 08:35 Respiratory Rate 16 07/28/24 08:35 Blood Pressure 96/76 L 07/28/24 08:35 Pulse Oximetry 96 07/28/24 08:35 Oxygen Delivery Room Air 07/28/24 08:35 Temperature 36.4 C L 07/28/24 08:35 Pulse Rate 76 07/28/24 08:35 Respiratory Rate 16 07/28/24 08:35 Blood Pressure 96/76 L 07/28/24 08:35 Pulse Oximetry 96 07/28/24 08:35 Oxygen Delivery Room Air 07/28/24 08:35 Imaging Data Radiologist's impression: Comparison: February 18, 2024 FINDINGS: BONES: Fracture of the right fourth, fifth and sixth ribs anteriorly. Postoperative changes in the thoracolumbar area. MEDIASTINUM: The cardiac silhouette is not enlarged. LUNGS: No infiltrates, effusions or pneumothorax. OTHER: No free air under the diaphragm. IMPRESSION: 1. Fracture of the right fourth, fifth and 6 ribs anteriorly. 2. No acute cardiopulmonary findings. Discharge Plan Discharge Clinical Impression: Fracture of rib of right side Patient Disposition: Home, Self-Care Condition: Stable Instructions: How to Use an Incentive Spirometer (ED), Rib Fracture (ED) Additional Instructions: please review attached instructions regarding rib fracture and incentive spirometer please call your PCP today to schedule follow-up appointment in 1-2 for new or worsening symptoms go directly to the emergency department Prescriptions: No Action tadalafil 10 mg Tablet 10 mg PO DAILY PRN (Reason: Erectile Dysfunction) Qty: 20 2RF Rx Instructions: administer approximately 30min before sexual activity; do not use more than 1 dose per 24hrs Trelegy Ellipta 100-62.5-25 mcg blister with device 1 inh inhalation DAILY Qty: 28 5RF albuterol sulfate [ProAir HFA] 90 mcg/actuation HFA aerosol inhaler 1 puff inhalation Q4H PRN (Reason: cough ) Qty: 8.5 0RF phenelzine 15 mg tablet 15 mg PO TID Qty: 270 1RF lorazepam 2 mg tablet 2 mg PO BID PRN (Reason: Anxiety) Qty: 60 2RF omeprazole 20 mg capsule,delayed release(DR/EC) 20 mg PO BID Qty: 180 1RF Rx Instructions: Take one in the AM with breakfast and one in the PM with dinner Follow-up/Referrals: Pal Matthews MD [Primary Care Provider] -
== END 2024-07-28 09:41 | disposition home or self-care (01) ==
PROVIDERS: Emergency Provider Nurse Practitioner Family; PCP Family Medicine
DX: S22.41XA Multiple fractures of ribs, right side, initial encounter for closed fracture (principal); X58.XXXA Exposure to other specified factors, initial encounter; R07.81 Pleurodynia; J44.9 Chronic obstructive pulmonary disease, unspecified; E78.5 Hyperlipidemia, unspecified; M19.90 Unspecified osteoarthritis, unspecified site; Z85.46 Personal history of malignant neoplasm of prostate; Z85.820 Personal history of malignant melanoma of skin; Z85.818 Personal history of malignant neoplasm of other sites of lip, oral cavity, and pharynx
CPT/HCPCS: 71046; 71100; 93005; 99213; G0463

== ENCOUNTER 2024-10-06 08:43 | Outpatient (CLI) | payer OTHER, SELFPAY ==
[2024-10-06 15:52] LABS: Prostate Specific Antigen 0.3 ng/mL (< OR = 4.0)
== END 2024-10-06 08:44 | disposition home or self-care (01) ==
LOC: ANHLAB 08:46
PROVIDERS: PCP Family Medicine; Visit Provider Radiology Radiation Oncology
DX: C61 Malignant neoplasm of prostate (principal)
CPT/HCPCS: 36415; 84153

== ENCOUNTER 2024-10-23 08:42 | Emergency (ER) | payer OTHER, SELFPAY ==
--- OUTSIDE RECORDS SUMMARY | 2024-10-23 08:54 | XMS_ITS | Clinical Summary ---
Author Organization [facility] [place] Address [address] [place] [address] Care Team Providers Care Treating Engineer Name Role Phone Unavailable Primary Care Provider Unavailabl e Allergies No known active allergies Medications LORazepam (ATIVAN) 2 mg tablet 09/10/2021 Active phenelzine (NardiL) 15 mg tablet Take 15 mg by mouth 3 times daily. Active sildenafiL (VIAGRA) 25 mg tablet Take 1 Tablet (25 mg) by mouth 1 time daily as needed for Erectile Dysfunction. Take 1 hour prior to sexual activity. 20 Tablet 04/12/2023 Active Family History Relation Name Status Comments Brother 1 Alive Brother 2 Alive Daughter 1 Alive Daughter 2 Alive Daughter 3 Alive Daughter 4 Alive Daughter 5 Alive Daughter 6 Alive Father Mother Alive Sister 1 Alive Sister 2 Alive Son 1 Alive Son 2 Alive Son 3 Alive Son 4 Alive Son 5 Alive Son 6 Alive Son 7 Alive Social History Tobacco Use Types Packs/Day Years Used Date Smoking Tobacco: Every Day Smokeless Tobacco: Never Alcohol Use Standard Drinks/Week Comments Never 0 (1 standard drink = 0.6 oz pur e alcohol) Sex and Gender Information Value Date Recorded Sex Assigned at Not on file Legal Sex Male 1:17 PM JOB SETTER HONING Gender Identity Not on file Sexual Orientation Not on file Last Filed Vital Signs Vital Sign Reading Time Taken Comments Blood Pressure 117/63 09/19/2021 11:05 AM JOB SETTER [employer]ONING Pulse 75 09/19/2021 11:05 AM JOB SETTER HONING Temperature 36.6 ??C (97.9 ??F) 09/19/2021 1 1:05 AM JOB SETTER HONING Respiratory Rate - - Oxygen Saturation 91% 09/19/2021 11: 05 AM JOB SETTER HONING Inhaled Oxygen Concentration - - Weight 79.7 kg (175 lb 11.2 oz) 021 11:05 AM JOB SETTER HONING Height 182.9 cm (6') 09/19/2021 11:05 AM JOB SETTER HONING Body Mass Index 23.83 09/19/2021 11:05 AM JOB SETTER HONING Plan of Treatment Health Maintenance Due Date Last Done Comments DTAP/TDAP/TD VACCINES (1 - Tdap) 1969 PNEUMOCOCCAL VACCINE 65+ YEARS (1 of 2 - PCV) 07/26/19 67 ZOSTER VACCINE (1 of 2) 1998 RSV VACCINE (60+ or ) (1 - 1-dose 75+ series) 2023 INFLUENZA VACCINE (#1) 2024 Insurance MEDICARE PART A AND B [place]ICAID [place]
--- OUTSIDE RECORDS SUMMARY | 2024-10-23 08:54 | XMS_ITS | Continuity of Care Document ---
Author Name [facility] Organization [facility] Care Team Providers Care Fashion Director Party Plan Sales Name Role Phone [facility] Unavailable Unavailable Problems Combined list of problems from Department of Defense and [facility] Affairs facilities. It does not include entries that were removed or entered in error. 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 Depression * (ICD-9-CM 300.4/311.) Active Condition [facility] Depression * (ICD-9-CM 311./300.4) Active Condition [facility] Dysthymic Disorder (ICD-9-CM 300.4) Active Condition [facility] Elevated PSA Active Condition [facility] Head and Neck Cancer, Unknown Site Active Condition Dec 21, 2008 Entered By: TIANNA LEBLANC Comment: has received radiation post neck surgeryDec 21, 2008 Entered By: TIANNA LEBLANC Comment: salivary glands goneDec 21, 2009 Entered By: TIANNA LEBALNC Comment: SCC, necklymph nodes, left nipple,2001Dec 21, 2009 Entered By: [facility] Entered By: TIANNA LEBLANC Comment: records scanned [facility] Hyperkalemia * (ICD-9-CM 276.7) Active Condition [facility] Impacted Cerumen Active Condition [facility] Thong [facility] Internal hemorrhoids without mention of complication (ICD-9-CM 455.0) Active Condition [facility] Low Back Pain Active Condition [facility] Major Depressive Disorder, Recurrent Active Condition [facility] Major Depressive Disorder, Recurrent, Severe, without Psychotic Features (ICD-9- Active Condition [facility] Melanoma of Skin Active Condition Dec 21, 2008 Entered By: TIANNA LEBLANC Comment: Dr Day, several removed [facility] Memory loss Active Condition [facility] Mood Disorder NOS Active Condition [facility] Nicotine Dependence Active Condition Dec 21, 2009 Entered By: TIANNA LEBLANC Comment: declines treatment [facility] PANIC D/O W/0 AGORA Active Condition [facility] Personal History of Colonic Polyps Active Condition Nov 08, 2010 Entered By: ROMAINE ROBLES Comment: Due for repeat colonoscopy 08/2011 - 09/2011May 2011 Entered By: ANNMARIE GUARDADO Comment: repeat colonoscopy due in 08/[address] [facility] Prostate cancer Active Condition [facility] Sensory neuropathy Active Condition [facility] Tobacco use Active Condition [facility] Tobacco Use * (ICD-9-CM 305.1) Active Condition [facility] Vitamin D deficiency (SNOMED CT 45763018) Active Condition [facility] Medications Combined list of outpatient medications from Department of Defense and Veterans Affairs facilities.Medications provided include 1) outpatient medications from the last 15 months, and 2) patient-reported medications. Medication Details Route Status Patient Instructions Prescription Expires Prescription Number Last Dispense Date Ordering Provider Order Date Order Qty Source PHENELZINE SO4 15MG TAB TAKE ONE TABLET BY MOUTH ONCE A DAY ORAL ACTIVE CAR FIGUEREDO MD 2018 [facility] Immunizations Combined list of available immunizations from the Department of [facility] and Veterans Affairs facilities. Immunization Series Date Given Administered By Site Reaction Lot Number CVX Code Drug Geriatric Personal Care Aide Status Comments Source COVID-19 (MODERNA), MRNA, LNP-S, PF, 100 MCG/0.5 ML DOSE 2 2020 207 complet ed MOD; [id number]; 1 [facility] COVID-19 (MODERNA), MRNA, LNP-S, PF, 100 MCG/0.5 ML DOSE 1 2020 207 complet ed MOD; [id number]; 1 [facility] TDAP 2012 115 complet ed Left Deltoid [facility] Encounters Combined list of: 1) [facility] 2) Encounters from the [facility] facilities going back up to 280 months. Location Location Details Encounter Type Encounter Number Reason For Visit Attending Provider ADM Date DC Date Status Disposition Source [facility] Outpatient Encounter [id number] 04/30 [facility] Procedures Combined list of: 1) [facility], not all VA non-surgical procedures are included; 2) All procedures from the Department [facility] facilities. Procedure Procedure Type Code Date Perfomer Comments Azul painting COLLECTION OF VENOUS BLOOD B Y VENIPUNCTURE 11/22/2005 [facility] COLLECTION OF VENOUS BLOOD B Y VENIPUNCTURE 05/16/2005 [facility] Social History Combined list of available smoking, tobacco, and other social history from [facility] and [facility] facilities. Social History Type Response Date Comment Azul painting Tobacco smoking status NHIS VA-TOBACCO USE 30 YEARS OR MORE 01/03/2021 [facility] History of tobacco use VA-TOBACCO USE WI 30 MIN OF WAKEUP 01/03/2021 [facility] History of tobacco use VA-TOBACCO USE JIG BORER YES 06/22/2019 [facility] History of tobacco use VA-TOBACCO USER EVERY DAY 02/24/2018 [facility] History of tobacco use TOBACCO USER OFFERED MEDS 11/27/2017 [facility] History of tobacco use QUIT TOBACCO >7 YEARS AGO 11/30/2014 [facility] History of tobacco use CURRENT TOBACCO USER 01/04/2014 [facility] History of tobacco use CURRENT TOBACCO USER 01/20/2013 [facility] History of tobacco use CURRENT TOBACCO USER 06/25/2012 [facility] History of tobacco use CURRENT TOBACCO USER 07/19/2011 [facility] History of tobacco use CURRENT TOBACCO USER 07/17/2010 [facility] History of tobacco use CURRENT TOBACCO USER 12/20/2009 [facility] History of tobacco use CURRENT TOBACCO USER 12/21/2008 [facility] History of tobacco use CURRENT TOBACCO USER 10/28/2006 [facility] History of tobacco use PT REFUSED SMOKING CESSATION CLASSES 02/04/2004 [facility] History of tobacco use CURRENT TOBACCO USER 07/03/2001 [facility] This section is an empty social history section. DoD
--- OUTSIDE RECORDS SUMMARY | 2024-10-23 08:54 | XMS_ITS | Clinical Summary ---
Author Organization [facility] Address [address] [place] [address]. [place], [place] [id number] [place] [id number] Care Team Providers Care Edge Polisher Name Role Phone Kirsten Matthews MD Primary Care Provider Social History Tobacco Use Types Packs/Day Years Used Date Smoking Tobacco: Never Assessed Sex and Gender Information Value Date Recorded Sex Assigned at Not on file Legal Sex Male 4:22 PM APPRENTICE EMBALMER Gender Identity Not on file Sexual Orientation Not on file Plan of Treatment Health Maintenance Due Date Last Done Comments Hepatitis C 1968 DTaP, Tdap and Td Vaccines ( 1 - Tdap) 1967 Zoster Vaccines (1 of 2) 1998 Annual Medicare Wellness Visit 2013 Pneumococcal Vaccine: 65+ Ye ars (1 of 1 - PCV) 2013 RSV Immunization or 60+ Years (1 - 1-dose 75+ series) 2023 COVID-19 Vaccine (2 - 2023-2 5 season) 2024 09/13/2021 Influenza Adult (#1) 2024 Meningococcal B Vaccine Aged Out No l onger eligible based on patient's age to complete this topic Meningococcal Vaccine Aged Out No angelina carlito eligible based on patient's age to complete this topic RSV Immunizations Under 20 Months Aged Out No longer eligible based on patient's age to complete this topic Insurance MEDICARE MEDICAID [facility] Care Teams Edge Polisher Relationship Specialty Start Date End Date Kirsten Matthews MD [address] [place] [address] PCP - General FAMILY PRACTICE 10/23/21
[2024-10-23 09:29] VITALS: O2SAT 90
[2024-10-23 09:33] VITALS: BP 102/60; PULSE 92; RESP 18; TEMP 36.3; O2SAT 88
--- NOTE | 2024-10-23 09:44 | ED.URI ---
HPI - URI/Sore Throat General Chief Complaint: Upper Respiratory Infection Stated Complaint: cold symptoms Time Seen by Provider: 10/23/24 09:44 Source: patient, RN notes reviewed and old records reviewed Mode of arrival: ambulatory Limitations: no limitations History of Present Illness HPI Narrative: 74-year-old male presents to the [facility] with URI symptoms. Significant history of COPD, prostate cancer. Has not been using his inhalers since he has been sick. Patient smokes 1-1.5 packs of cigarettes a day. Multiple people in his household is sick. Patient is concerned can see is not been been able to eat since Saturday. Is taking small sips of water. Patient has a history of COPD, unsure of where his normal saturations are. Denies taking any medication for his symptoms Onset (ago): day(s) (5) Treatments prior to arrival: none Related Data Allergies Allergy/AdvReac Type Severity Reaction Status Date / Time No Known Allergies Allergy Verified 10/23/24 09:24 Review of Systems Review of Systems: All systems reviewed & are unremarkable except as noted in HPI and below Constitutional: Constitutional: Reports as per HPI, Reports body ache(s) and Reports fatigue ENT: Reports system reviewed and no additional complaints, except as documented Cardiovascular: Cardiovascular: Reports no additional cardiovascular complaints, Denies chest pain and Denies dyspnea Respiratory: Respiratory: Reports as per HPI, Denies chest congestion, Reports cough and Denies dyspnea Musculoskeletal: Musculoskeletal: Reports no additional musculoskeletal complaints Integumentary/Breasts: Skin/Breast: Reports system reviewed and no additional complaints, except as docu PMFSH Past Medical History Medical History Hx of malignant neoplasm of prostate GERD without esophagitis Hyperlipidemia Skin cancer Asthma History of fracture of left hip COPD (chronic obstructive pulmonary disease) Tobacco use disorder, severe, dependence 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 Prostate cancer Recently discovered on biopsy. Apparently low-grade and is being followed by surveillance. Melanoma Melanoma x2 excised from the chest. Anxiety Depression Arthritis Back fracture T12 fracture in 1992. Surgical History Surgical History Status post-operative repair of closed fracture of left hip Status post surgical removal of malignant neoplasm of skin Including melanoma from the chest and basal cell carcinoma from the cheek and arms. History of back surgery Hx of appendectomy Family History Family History Mother Congestive heart failure Social History Social History Social History: The patient is to his 3rd and lives in [place]. He has 13 children, youngest is 3. He is retired, worked for the [employer] He designates his , Nicole, as his surrogate decision maker and he wishes to be a full code. Smoking packs per day: 1 Smoking cigarettes per day: 20.0 Years smoked: 55 Smoking pack-years: 55.00 Smoking status: Current every day smoker Tobacco type: cigarettes Alcohol intake: never Substance use: never Substance use type: does not use Lack of Transportation: No Lack of Food: Never True Current Housing: I Have Housing Concerned About Future Housing: No Difficulty Paying Gas/Electric Bills: No Difficulty Paying for Meds: No Currently Unemployed: No Education: Bachelor's Degree Difficulty w/ Childcare or Family Care: No Living arrangements: with family Additional living arrangements comments: Occupation/Education: retired Gender identity (if verbalized by the patient): Male Sexual Orientation (if Verbalized by the Patient): Straight or Heterosexual Spiritual care concerns: No Agree to blood products: Yes Comments At the time of my signature, I reviewed and agree with the nursing past medical, surgical, social, and family history. There is no relevant family history pertinent to the patient complaint. Exam Const: General: cooperative, no acute distress, well developed, alert, ill appearing chronically, tired appearing and well nourished Nutritional Appearance: well nourished Orientation/consciousness: patient oriented x3 Limitations: no limitations HENMT: Head: normal to inspection Mouth: Yes dry mucous membranes Throat: posterior oropharynx normal, uvula midline and no uvular edema Eyes: General: appearance normal, both eyes and all related structures Alignment and Position: alignment normal Neck: Neck: normal visual inspection, full ROM, no lymphadenopathy and no meningeal signs Chest: Chest palpation & inspection: normal inspection of the chest Resp: Effort & Inspection: normal respiratory effort and able to speak in complete sentences Auscultation: no crackles, no rales, no rhonchi, no wheezes and diminished lung sounds (Throughout) Cardio: Rate: regular rate Skin: General skin exam: normal color and no rashes or lesions noted Neuro: General: patient oriented x3, gait normal, moves all extremities and no meningeal signs Cognition (Neuro): normal cognition Speech: normal speech Gait exam (Neuro): Normal gait present Extrem: General: normal to inspection, full ROM, capillary refill normal and normal gait Psych: Appearance: grossly normal and well kempt Mental Status: mental status grossly normal Speech and movement: Normal speech and movement present and Clear speech present Affect: normal affect Attitude: cooperative Course Course Level of Care: Express Care Visit Vital Signs Vital signs: Vital Signs Pulse Oximetry 90 10/23/24 09:29 Oxygen Delivery Room Air 10/23/24 09:29 Temperature 97.4 F L 10/23/24 09:33 Pulse Rate 92 10/23/24 09:33 Respiratory Rate 18 10/23/24 09:33 Blood Pressure 102/60 10/23/24 09:33 Pulse Oximetry 88 L 10/23/24 09:33 Oxygen Delivery Room Air 10/23/24 09:33 Reviewed MDM - URI/Sore Throat MDM Narrative Medical decision making narrative: Patient sitting in exam room. Patient is nontoxic however saturations are low, patient is currently a smoker as well as a COPD ear. Patient test positive for influenza A however symptoms x5 days. Patient is most concerned that is not been able to eat since Saturday, 3 days. Discussed with patient possible transfer to the ER which he is declining at this time. Patient states that he will make himself eat and drink plenty of fluids. Discussed with patient the importance of using his medication that is prescribed especially when he sick and having respiratory issues. Stressed the importance of using them as he is prescribed and not taking a break from them for 3 days. Attempted to educate the importance of taking medications, [id number] medications. Reiterated and stressed the importance that if he is not eating, drinking or starts having more trouble breathing that he should proceed to the emergency room which he again is declining at this time. Discharge instructions reviewed with patient, as well as provided in writing per nursing staff. The instructions also include specific and strict return/GO TO THE ER as well as f/u information. All questions have been answered, and the patient deny any further questions with discharge and discharge plan. Some parts of this dictation were generated by voice recognition software and may contain typographical and/or grammatical inaccuracies. Differential Diagnosis Differential diagnosis: Likely upper respiratory infection, viral infection, bronchitis and influenza Lab Data Labs: Lab Results 10/23/24 Range/Units 09:47 POC Influenza A Ag Positive (Negative) POC Influenza B Ag Negative (Negative) POC SARS CoV-2 Ag Negative (Negative) Reviewed Critical Care Time Critical Care Time Critical Care Time: No Discharge Plan Discharge Clinical Impression: Influenza A, History of COPD Patient Disposition: Home, Self-Care Condition: Stable Instructions: Antibiotic Form, Influenza (ED) Additional Instructions: Your rapid COVID test were negative Your rapid flu test was positive for influenza A Health when you are sick it is extremely important that you do use your inhalers and your medications that you are prescribed. It is very important to treat your symptoms. Drink plenty of water, Gatorade, Pedialyte, ice pops or Jell-O. -Alternate Tylenol and Motrin per package directions for fever or pain. You can alternate every 4 hours -Antihistamine medication such as Zyrtec/Claritin/Lily during the day can help improve symptoms. -doing daily nasal irrigations can help relieve pressure your sinuses. Things like a Neti pot -Use Flonase twice a day for 5 days then daily to help reduce the inflammation and dry up your sinuses. -You can also use Mucinex. Be sure to drink plenty of water with this medication at least 8 ounces with every dose and it is important to drink 8 to 10 glasses of water per day. Water is a natural decongestant -Eat and drink things that are easy to swallow, like tea or soup, or popsicles. -Oral rinses such as: Salt water gargles and/or may use topical anesthetic (eg. Chloraseptic spray) or lozenges to relieve dryness or throat pain). -Frequent hand washing or hand production machine tender is one of the best ways to prevent spread of infection. -Using a vaporizer or humidifier at night will also help thin secretions and help with coughing up phlegm. -Follow up with primary care provider in 7-10 days if condition is not improving - For new or worsening symptoms go directly to the nearest ER Patient Language: Urdu Prescriptions: No Action Jameylelyndsey Ellipta 100-62.5-25 mcg blister with device 1 inh inhalation DAILY Qty: 28 5RF albuterol sulfate [ProAir HFA] 90 mcg/actuation HFA aerosol inhaler 1 puff inhalation Q4H PRN (Reason: cough ) Qty: 8.5 0RF omeprazole 20 mg capsule,delayed release(DR/EC) 20 mg PO BID Qty: 180 1RF Rx Instructions: Take one in the AM with breakfast and one in the PM with dinner lorazepam 2 mg tablet 2 mg PO BID PRN (Reason: Anxiety) Qty: 60 2RF phenelzine 15 mg tablet 15 mg PO TID Qty: 270 1RF Follow-up/Referrals: Pal Matthesw MD [Primary Care Provider] - 3 Days ([facility] follow-up) Time of Disposition: 10:01
[2024-10-23 09:49] LABS: EDCOVIDSCREEN Negative (Negative); EDINFLUASCREEN Positive (Negative); EDINFLUBSCREEN Negative (Negative)
== END 2024-10-23 10:16 | disposition home or self-care (01) ==
PROVIDERS: Emergency Provider Nurse Practitioner; PCP Family Medicine
DX: J10.1 Influenza due to other identified influenza virus with other respiratory manifestations (principal); J44.9 Chronic obstructive pulmonary disease, unspecified; Z20.822 Contact with and (suspected) exposure to COVID-19; F17.210 Nicotine dependence, cigarettes, uncomplicated; E78.5 Hyperlipidemia, unspecified; K21.9 Gastro-esophageal reflux disease without esophagitis; M19.90 Unspecified osteoarthritis, unspecified site; F41.9 Anxiety disorder, unspecified; Z85.46 Personal history of malignant neoplasm of prostate; Z85.820 Personal history of malignant melanoma of skin; Z85.818 Personal history of malignant neoplasm of other sites of lip, oral cavity, and pharynx
CPT/HCPCS: 87426; 87804; 99212; G0463

== ENCOUNTER 2024-10-31 08:37 | Emergency (ER) | payer OTHER, SELFPAY ==
[2024-10-31] VITALS (24 sets, daily range): BP systolic 86–127; BP diastolic 57–92; PULSE 65–94; RESP 12–24; TEMP 36.6–36.8; O2SAT 87–100
--- NOTE | ~2024-10-31 | XR_ITS ---
EXAMINATION: XR chest 2V DATE: 10/31/2024 09:40 INDICATION: Shortness of breath. TECHNIQUE: Frontal and lateral views of the chest were obtained. COMPARISON: Chest single view 07/28/2024, chest CT 11/06/2015 FINDINGS: There are lucencies in the lungs, consistent with emphysema. There are airspace opacities a t right lung apex. There is atelectasis at the lung bases. No pleural effusion or pneumothorax. The h eart size is normal. Calcified left hilar lymph nodes are consistent with old granulomatous disease. There are posterior fixation rods in the spine. There are chronic compression fractures of T11 and T1 2. IMPRESSION: 1. Worsened airspace opacities at right lung apex, consistent with pneumonia/scarring versus malignan cy. Noncontrast chest CT is recommended. Reviewed, dictated and finalized at location A. ING MANAGER IMPRESSION: 1. Worsened airspace opacities at right lung apex, consistent with pneumonia/sc arring versus malignancy. Noncontrast chest CT is recommended.
--- NOTE | ~2024-10-31 | CT_ITS ---
EXAMINATION:CT diagnostic chest wo con DATE: 10/31/2024 10:40 INDICATION: Pneumonia. TECHNIQUE: Computed tomography (CT) of the chest was performed without intravenous contrast. Automate d exposure control and iterative reconstruction technique were employed. The dose-length product (DLP ) was 176.10 mGy-cm. COMPARISON: Chest CT 11/06/15 FINDINGS: There is a 4.4 x 3.1 cm cavitary mass at right lung apex. There is mild scarring at left link ng apex. There is moderate emphysema. There are widespread centrilobular nodules and tree-in-bud opac ities involving all lobes. There are airspace opacities in the lower lobes. Calcified bilateral lung nodules and calcified hilar lymph nodes are consistent with old granulomatous disease. No pleural eff usion. The heart size is normal. No pericardial effusion. There are coronary artery calcifications. C alcifications in the liver and spleen are consistent with old granulomatous disease. There are gallst ones in the gallbladder. There is a 4.3 cm cyst in right kidney. There is a chronic 2.1 cm mass in le ft adrenal gland, likely an adenoma. There is severe cervical spondylosis and mild thoracic spondylos is. There are posterior fixation rods involving the lower thoracic spine and lumbar spine. There is c hronic height loss of multiple vertebral bodies. IMPRESSION: 1. Multifocal pneumonia. 2. Cavitary mass at right lung apex, most likely an abscess. Noncontrast low-dose chest CT is recomme nded in 1-3 months to exclude malignancy. 3. Moderate emphysema. Reviewed, dictated and finalized at location A. LRY ESTIMATOR IMPRESSION: 1. Multifocal pneumonia. 2. Cavitary mass at right lung apex, most likely an abscess. Noncontrast low-do se chest CT is recommended in 1-3 months to exclude malignancy. 3. Moderate emphysema.
--- OUTSIDE RECORDS SUMMARY | 2024-10-31 08:40 | XMS_ITS | Clinical Summary ---
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
--- OUTSIDE RECORDS SUMMARY | 2024-10-31 08:40 | XMS_ITS | Continuity of Care Document ---
Author Name [facility] Organization [facility] Care Team Providers Care Cognos Administrator Name Role Phone [facility] Unavailable Unavailable Problems Combined list of problems from Department of Defense and [facility] Affairs facilities. It does not include entries that were removed or entered in error. 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 [facility] Folliculitis Active 1 Condition [facility] Malignant neoplasm of skin Active 1 Condition [facility] Melanoma of Skin Active 1 Condition [facility] Anxiety Disorder NOS Active 2 Condition [facility] Anxiety Disorder * (ICD-9-CM 300.00) Active Condition [facility] Anxiety Disorder NOS Active Condition [facility] Basal cell carcinoma of skin Active Condition [facility] Depression * (ICD-9-CM 300.4/311.) Active Condition [facility] Depression * (ICD-9-CM 311./300.4) Active Condition [facility] Dysthymic Disorder (ICD-9-CM 300.4) Active Condition [facility] Elevated PSA Active Condition [facility] Head and Neck Cancer, Unknown Site Active Condition Dec 21, 2008 Entered By: TIANNA LEBLANC Comment: has received radiation post neck surgeryDec 21, 2008 Entered By: TIANNA LEBLANC Comment: salivary glands goneDec 21, 2009 Entered By: TIANNA LEBLANC Comment: SCC, necklymph nodes, left nipple,2001Dec 21, 2009 Entered By: [facility]BLANC [facility] Entered By: TIANNA LEBLANC Comment: records scanned [facility] Hyperkalemia * (ICD-9-CM 276.7) Active Condition [facility] Impacted Cerumen Active Condition [facility] Thong [facility] Internal hemorrhoids without mention of complication (ICD-9-CM 455.0) Active Condition [facility] Low Back Pain Active Condition [facility] Major Depressive Disorder, Recurrent Active Condition [facility] Major Depressive Disorder, Recurrent, Severe, without Psychotic Features (ICD-9- Active Condition [facility] Melanoma of Skin Active Condition Dec 21, 2008 Entered By: TIANNA LEBLANC Comment: Dr Day, several removed [facility] Memory loss Active Condition [facility] Mood Disorder NOS Active Condition [facility] Nicotine Dependence Active Condition Dec 21, 2009 Entered By: TIANNA LEBLANC Comment: declines treatment [facility] PANIC D/O W/0 AGORA Active Condition [facility] Personal History of Colonic Polyps Active Condition Nov 08, 2010 Entered By: ROMAINE ROBLES Comment: Due for repeat colonoscopy 08/2011 - 09/2011May 2011 Entered By: ANNMARIE GUARDADO Comment: repeat colonoscopy due in 08/2012 [facility] Prostate cancer Active Condition [facility] Sensory neuropathy Active Condition [facility] Tobacco use Active Condition [facility] Tobacco Use * (ICD-9-CM 305.1) Active Condition [facility] Vitamin D deficiency (SNOMED CT [id number]) Active Condition [facility] Medications Combined list of outpatient medications from [...] DAY ORAL ACTIVE CAR FIGUEREDO MD 2018 [facility] Immunizations Combined list of available immunizations from the Department of [facility] and Veterans Affairs facilities. Immunization Series Date Given Administered By Site Reaction Lot Number CVX Code Drug Pastry Cook Status Comments Source COVID-19 (MODERNA), MRNA, LNP-S, PF, 100 MCG/0.5 ML DOSE 2 2020 207 complet ed MOD; [id number]; 1 [facility] COVID-19 (MODERNA), MRNA, LNP-S, PF, 100 MCG/0.5 ML DOSE 1 2020 207 complet ed MOD; [id number]; 1 [facility] TDAP 2012 115 complet ed Left Deltoid [facility] Encounters Combined list of: 1) Encounters from [facility] facilities going backup to the last 18 months, not all [place] inpatient encounters are included; 2) Encounters from the [facility] facilities going backup to 280 months. Location Location Details Encounter Type Encounter Number Reason For Visit Attending Provider ADM Date DC Date Status Disposition Source [facility] Outpatient Encounter [id number] 04/30 [facility] Procedures Combined list of: 1) Procedures from [facility] facilities going back up to thelast 18 months, not all [place] non-surgical procedures are included; 2) All procedures from the Department [facility] facilities. Procedure Procedure Type Code Date Perfomer Comments Jose Luisc e COLLECTION OF VENOUS BLOOD B Y VENIPUNCTURE 11/22/2005 [facility] COLLECTION OF VENOUS BLOOD B Y VENIPUNCTURE 05/16/2005 [facility] Social History Combined list of available smoking, tobacco, and other social history from Department of [facility] and [facility] facilities. 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 History of tobacco use CURRENT TOBACCO USER 01/20/[address] [facility] [facility] History of tobacco use CURRENT TOBACCO USER 06/25/[address] [facility] [facility] History of tobacco use CURRENT TOBACCO USER 07/19/2011 [facility] History of tobacco use CURRENT TOBACCO USER 07/17/[address] [facility] [facility] History of tobacco use CURRENT TOBACCO USER 12/20/[address] [facility] [facility] History of tobacco use CURRENT TOBACCO USER 12/21/[address] [facility] [facility] History of tobacco use CURRENT TOBACCO USER 10/28/2006 [facility] History of tobacco use PT REFUSED SMOKING CESSATION CLASSES 02/04/2004 [facility] History of tobacco use CURRENT TOBACCO USER 07/03/2001 [facility] This section is an empty social history section. DoD
--- OUTSIDE RECORDS SUMMARY | 2024-10-31 08:40 | XMS_ITS | Clinical Summary ---
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 Gender Identity Not on file Sexual Orientation Not on file Last Filed Vital Signs Vital Sign Reading Time Taken Comments Blood Pressure 117/63 09/19/2021 11:05 AM GARDENING MANAGER Pulse 75 09/19/2021 11:05 AM GARDENING MANAGER Temperature 36.6 C (97.9 F) 09/19/2021 11:05 AM GARDENING MANAGER Respiratory Rate - - Oxygen Saturation 91% 09/19/2021 11: 05 AM GARDENING MANAGER Inhaled Oxygen Concentration - - Weight 79.7 kg (175 lb 11.2 oz) 021 11:05 AM GARDENING MANAGER Height 182.9 cm (6') 09/19/2021 11:05 AM GARDENING MANAGER Body Mass Index 23.83 09/19/2021 11:05 AM GARDENING MANAGER Plan of Treatment Health Maintenance Due Date Last Done Comments DTAP/TDAP/TD VACCINES (1 - Tdap) 1967 PNEUMOCOCCAL VACCINE 65+ YEARS (1 of 2 - PCV) 07/26/19 67 ZOSTER VACCINE (1 of 2) 1998 RSV VACCINE (60+ or ) (1 - 1-dose 75+ series) 2023 INFLUENZA VACCINE (#1) 2024 Insurance MEDICARE PART A [place] B [place]ICAID [place]
--- NOTE | 2024-10-31 08:52 | ED_ITS ---
HPI - General Adult General Chief complaint: Shortness of Breath/Dyspnea Stated complaint: Weak, cough, chills, CRAWFORD Time Seen by Provider: 10/31/24 08:41 History of Present Illness HPI narrative: 74-year-old male history of COPD presenting to the emergency department for evaluation for worsening shortness of breath. Patient states that he and his family began feeling ill at on October 20 in on October 23 he did test positive for influenza A. Patient states since then he has had worsening symptoms. Patient does report worsening shortness of breath. Patient is still a smoker. Patient reports shortness of breath but denies any associated chest pain. Patient was 84% on room air on arrival. Patient does not wear oxygen at home. Related Data Allergies Allergy/AdvReac Type Severity Reaction Status Date / Time No Known Allergies Allergy Verified 10/31/24 08:53 Review of Systems 2 Review of Systems: All systems reviewed & are unremarkable except as noted in HPI and below PMFSH Past Medical History Medical History (Updated 10/31/24 @ 13:08 by ESTHER RuanoN-Alcides) Nicotine addiction Lung mass Respiratory failure Hx of malignant neoplasm of prostate GERD without esophagitis Hyperlipidemia Skin cancer Asthma History of fracture of left hip COPD (chronic obstructive pulmonary disease) Tobacco use disorder, severe, dependence 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 Prostate cancer Recently discovered on biopsy. Apparently low-grade and is being followed by surveillance. Melanoma Melanoma x2 excised from the chest. Anxiety Depression Arthritis Back fracture T12 fracture in 1992. Surgical History Surgical History Status post-operative repair of closed fracture of left hip Status post surgical removal of malignant neoplasm of skin Including melanoma from the chest and basal cell carcinoma from the cheek and arms. History of back surgery Hx of appendectomy Family History Family History Mother Congestive heart failure Social History Social History Social History: The patient is to his 3rd and lives in [place]. He has 13 children, youngest is 3. He is retired, worked for the [employer]. He designates his , Nicole, as his surrogate decision maker and he wishes to be a full code. Smoking packs per day: 1 Smoking cigarettes per day: 20.0 Years smoked: 55 Smoking pack-years: 55.00 Smoking status: Current every day smoker Tobacco type: cigarettes Alcohol intake: never Substance use: never Substance use type: does not use Lack of Transportation: No Lack of Food: Never True Current Housing: I Have Housing Concerned About Future Housing: No Difficulty Paying Gas/Electric Bills: No Difficulty Paying for Meds: No Currently Unemployed: No Education: Bachelor's Degree Difficulty w/ Childcare or Family Care: No Living arrangements: with family Additional living arrangements comments: Occupation/Education: retired Gender identity (if verbalized by the patient): Male Sexual Orientation (if Verbalized by the Patient): Straight or Heterosexual Spiritual care concerns: No Agree to blood products: Yes Exam 2 Narrative: APPEARANCE: Ill-appearing HEAD: normocephalic, atraumatic. EYES: PERRLA/EOMI, conjunctivae clear. NOSE: Normal no drainage EARS:TMS clear with good light reflex. THROAT: Pharynx clear, no exudate. NECK: Supple. No adenopathy, no masses. RESPIRATORY: Airway patent, respirations nonlabored. Clear to auscultation bilaterally, no rales, rhonchi, wheezing. CARDIOVASCULAR: Regular rate and rhythm without murmurs rubs or gallops. ABDOMINAL: Soft, nontender, nondistended, normal bowel sounds MUSCULOSKELETAL: Moves all extremities. Strength/ROM intact, No edema, No calf tenderness. NEURO: Alert. Cranial nerves II through XII intact. SKIN: Warm, dry. Normal Color Course Vital Signs Vital signs: Vital Signs Temperature 97.8 F 10/31/24 08:46 Pulse Rate 94 10/31/24 08:46 Respiratory Rate 20 10/31/24 08:46 Blood Pressure 117/71 10/31/24 08:46 Pulse Oximetry 93 10/31/24 08:46 Oxygen Delivery Nasal Cannula 10/31/24 08:46 Oxygen Flow Rate 2 10/31/24 08:46 Temperature 98.2 F 10/31/24 14:12 Pulse Rate 74 10/31/24 14:33 Respiratory Rate 16 10/31/24 14:33 Blood Pressure 107/92 H 10/31/24 14:15 Pulse Oximetry 97 10/31/24 14:33 Oxygen Delivery BiPAP 10/31/24 14:22 Oxygen Flow Rate 2 10/31/24 08:54 Medical Decision Making MDM Narrative Medical decision making narrative: I discussed the case with the hospitalist at [facility] because we did not have pulmonology in house over the weekend he did not feel comfortable accepting the patient. I did discuss the patient with Dr. Kasper and he confirmed that he will not be here over the weekend to see the patient but he did not anticipate doing a procedure over the weekend even if he had been present. Dr. Kasper did recommend switching the antibiotics from Rocephin and azithromycin to azithromycin, Zosyn and vancomycin. I did discuss the case with the agriscience instructor at [facility] and she wanted their digital product specialist to review the images along with Cardiothoracic surgery. Images were sent to [facility]. Case was rediscussed with the hospitalist and while patient is potentially on the wait list for [facility] they were comfortable admitting the patient here with course of the weekend. Patient was admitted IMU for his BiPAP. Prior to go to the floor on re-evaluation patient states he does feel improved. Patient's heart rates in the 70s, patient's blood pressure is 125/70 for any saturating 98% the BiPAP. Differential Diagnosis Differential Diagnosis: Pneumonia, cavitary lesion, COVID, RSV, influenza Vital Signs Vital Signs: Vital Signs Temperature 97.8 F 10/31/24 08:46 Pulse Rate 94 10/31/24 08:46 Respiratory Rate 20 10/31/24 08:46 Blood Pressure 117/71 10/31/24 08:46 Pulse Oximetry 93 10/31/24 08:46 Oxygen Delivery Nasal Cannula 10/31/24 08:46 Oxygen Flow Rate 2 10/31/24 08:46 Temperature 98.2 F 10/31/24 14:12 Pulse Rate 74 10/31/24 14:33 Respiratory Rate 16 10/31/24 14:33 Blood Pressure 107/92 H 10/31/24 14:15 Pulse Oximetry 97 10/31/24 14:33 Oxygen Delivery BiPAP 10/31/24 14:22 Oxygen Flow Rate 2 10/31/24 08:54 Lab Data Lab results reviewed: Yes I reviewed the patient's lab results. 10/31/24 08:55 10/31/24 08:55 Labs: Lab Results 10/31/24 10/31/24 10/31/24 Range/Units 08:54 08:55 10:01 WBC 14.6 H (4.5-10.0) K/mm3 RBC 5.32 (4.6-6.20) M/mm3 Hgb 15.2 (14.0-18.0) g/dL Hct 49.2 (42.0-52.0) % MCV 92.5 (80-100) fl MCH 28.6 (26-34) pg MCHC 30.9 L (32-36) g/dl RDW 13.6 (11.5-14.5) % Plt Count 524 H D (150-375) k/mm3 MPV 9.0 (7.4-10.4) fl Immature Gran % (Auto) 1.4 H (0-0.5) % Neut % (Auto) 84.1 H (45.5-73.1) % Lymph % (Auto) 8.8 L (18.3-44.2) % [place]arro % (Auto) 4.2 (2.6-8.5) % Eos % (Auto) 1.0 (0-4.4) % Baso % (Auto) 0.5 (0.2-1.2) % Lymph # (Auto) 1.28 (0.9-3.2) K/mm3 [place] # (Auto) 0.6 (0.1-0.6) K/mm3 Eos # (Auto) 0.2 (0-0.3) K/mm3 Baso # (Auto) 0.1 (0.0-0.1) K/mm3 Abs Immat Gran (auto) 0.21 H (0.00-0.031) K/mm3 Absolute Neuts (auto) 12.3 H (1.3-6.7) K/mm3 Absolute Nucleated RBC 0.000 (0.0-0.012) K/mm3 Nucleated RBC % 0.0 (0.0-0.2) % PT 13.0 (11.1-14.7) Seconds INR 0.9 APTT 28.1 (22.3-36.8) Seconds Methemoglobin (0-1.5) %THb Sodium 142 (137-145) mmol/L Potassium 3.7 (3.4-5.0) mmol/L Chloride 95 L (98-107) mmol/L Carbon Dioxide 37 H (22-30) mmol/L Anion Gap 10 (4-12) mmol/L BUN 27 H (9-20) mg/dL Creatinine 1.08 (0.7-1.3) mg/dL Estim Creat Clear Calc 57 ml/min Estimated GFR > 60 (59 - ) Glucose 201 H (65-110) mg/dL Lactic Acid 1.7 (0.7-2.0) mmol/L Calcium 9.4 (8.4-10.2) mg/dL Total Bilirubin 0.9 (0.2-1.3) mg/dL AST 25 (17-59) U/L ALT 20 (6-50) U/L Alkaline Phosphatase 142 H (38-126) U/L Total Protein 9.0 H (6.3-8.2) g/dL Albumin 4.2 (3.5-5.1) g/dL Urine Color Dark yellow (Yellow) Urine Appearance Cloudy H (Clear) Urine pH 5.5 (5.0-9.0) Ur Specific [place] 1.022 (1.001-1.035) Urine Protein 2+ H (Negative) mg/dL Urine Glucose (UA) Negative (Negative) mg/dL Urine Ketones Trace H (Negative) mg/dL Ur Blood (Man) Negative (Negative) Urine Nitrate Negative (Negative) Urine Bilirubin 1+ H (Negative) Urine Urobilinogen 1.0 (<2.0) mg/dL Add Ur Microanalysis Reviewed Leukocyte Esterase Rfl Negative (Negative) TERRELL/UL Urine RBC 0-2 (0-2) /hpf Urine WBC 0-5 (0-3) /hpf Ur Squamous Epith Cells Occasional (Few) /hpf Urine Bacteria None seen /hpf Urine Casts >20 Nasal MRSA (PCR) (NOT DETECTE) Influenza A (RT-PCR) Positive A (Negative) Influenza B (RT-PCR) Negative (Negative) RSV (RT-PCR) Negative (Negative) SARS-CoV-2 RNA (RT-PCR) Negative (Negative) 10/31/24 10/31/24 Range/Units 11:06 11:50 WBC (4.5-10.0) K/mm3 RBC (4.6-6.20) M/mm3 Hgb (14.0-18.0) g/dL Hct (42.0-52.0) % MCV (80-100) fl MCH (26-34) pg MCHC (32-36) g/dl RDW (11.5-14.5) % Plt Count (150-375) k/mm3 MPV (7.4-10.4) fl Immature Gran % (Auto) (0-0.5) % Neut % (Auto) (45.5-73.1) % Lymph % (Auto) (18.3-44.2) % Navarro % (Auto) (2.6-8.5) % Eos % (Auto) (0-4.4) % Baso % (Auto) (0.2-1.2) % Lymph # (Auto) (0.9-3.2) K/mm3 [place] # (Auto) (0.1-0.6) K/mm3 Eos # (Auto) (0-0.3) K/mm3 Baso # (Auto) (0.0-0.1) K/mm3 Abs Immat Gran (auto) (0.00-0.031) K/mm3 Absolute Neuts (auto) (1.3-6.7) K/mm3 Absolute Nucleated RBC (0.0-0.012) K/mm3 Nucleated RBC % (0.0-0.2) % PT (11.1-14.7) Seconds INR APTT (22.3-36.8) Seconds Methemoglobin 0.1 (0-1.5) %THb Sodium (137-145) mmol/L Potassium (3.4-5.0) mmol/L Chloride (98-107) mmol/L Carbon Dioxide (22-30) mmol/L Anion Gap (4-12) mmol/L BUN (9-20) mg/dL Creatinine (0.7-1.3) mg/dL Estim Creat Clear Calc ml/min Estimated GFR (59 - ) Glucose (65-110) mg/dL Lactic Acid (0.7-2.0) mmol/L Calcium (8.4-10.2) mg/dL Total Bilirubin (0.2-1.3) mg/dL AST (17-59) U/L ALT (6-50) U/L Alkaline Phosphatase (38-126) U/L Total Protein (6.3-8.2) g/dL Albumin (3.5-5.1) g/dL Urine Color (Yellow) Urine Appearance (Clear) Urine pH (5.0-9.0) Ur Specific [place] (1.001-1.035) Urine Protein (Negative) mg/dL Urine Glucose (UA) (Negative) mg/dL Urine Ketones (Negative) mg/dL Ur Blood (Man) (Negative) Urine Nitrate (Negative) Urine Bilirubin (Negative) Urine Urobilinogen (<2.0) mg/dL Add Ur Microanalysis Leukocyte Esterase Rfl (Negative) TERRELL/UL Urine RBC (0-2) /hpf Urine WBC (0-3) /hpf Ur Squamous Epith Cells (Few) /hpf Urine Bacteria /hpf Urine Casts Nasal MRSA (PCR) Not detected (NOT DETECTE) Influenza A (RT-PCR) (Negative) Influenza B (RT-PCR) (Negative) RSV (RT-PCR) (Negative) SARS-CoV-2 RNA (RT-PCR) (Negative) ABG Data ABG results: 10/31/24 11:06 Puncture Site Left radial ABG pH 7.440 ABG pCO2 51.2 H ABG pO2 55.7 L ABG PO2/FiO2 Ratio 1.39 ABG HCO3 34.0 H ABG O2 Saturation 89.6 L ABG O2 Content 16.2 ABG Base Excess 8.4 A-a Gradient 170.6 Oxyhemoglobin 87.6 L* Carboxyhemoglobin 1.4 Reduced Hemoglobin 10.9 H Total Hemoglobin 13.2 O2 Delivery Device Nasal cannula O2 Liters/Min 5.0 FiO2 40 Imaging Data Radiologist's impression: Impressions Chest X-Ray 10/31/24 09:41 IMPRESSION: 1. Worsened airspace opacities at right lung apex, consistent with pneumonia/scarring versus malignancy. Noncontrast chest CT is recommended. Chest CT 10/31/24 10:44 IMPRESSION: 1. Multifocal pneumonia. 2. Cavitary mass at right lung apex, most likely an abscess. Noncontrast low- dose chest CT is recommended in 1-3 months to exclude malignancy. 3. Moderate emphysema. ECG Data EKG #1: EKG Interpretation: normal rate, no ectopy, non-specific ST changes, normal QRS and normal QT Critical Care Time Critical Care Time Critical Care Time: Yes Total Critical Care Time: 45 Discharge Plan Discharge Clinical Impression: COPD (chronic obstructive pulmonary disease), Multifocal pneumonia, Cavitary lesion of lung Patient Disposition: Acute Care Hospital Condition: Critical Patient Language: Lithuanian Prescriptions: No Action Trelelyndsey Ellipta 100-62.5-25 mcg blister with device 1 inh inhalation DAILY Qty: 28 5RF albuterol sulfate [ProAir HFA] 90 mcg/actuation HFA aerosol inhaler 1 puff inhalation Q4H PRN (Reason: cough ) Qty: 8.5 0RF omeprazole 20 mg capsule,delayed release(DR/EC) 20 mg PO BID Qty: 180 1RF Rx Instructions: Take one in the AM with breakfast and one in the PM with dinner lorazepam 2 mg tablet 2 mg PO BID PRN (Reason: Anxiety) Qty: 60 2RF phenelzine 15 mg tablet 15 mg PO TID Qty: 270 1RF Follow-up/Referrals: Pal Matthews MD [Primary Care Provider] -
--- OUTSIDE RECORDS SUMMARY | 2024-10-31 08:53 | XMS_ITS | Continuity of Care Document ---
Author Name [facility] Organization [facility] Care Team Providers Care Community Health Planning Director Name Role Phone [facility] Unavailable Unavailable Problems Combined list of problems from Department of Defense and [facility] Affairs facilities. It does not include entries that were removed or entered in error. 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/300.4) Active Condition [facility] Dysthymic Disorder (ICD-9-CM 300.4) Active Condition [facility] Elevated PSA Active Condition [facility] Head and Neck Cancer, Unknown Site Active Condition Dec 21, 2008 Entered By: TIANNA LEBLANC Comment: has received radiation post neck surgeryDec 21, 2008 Entered By: TIANNA LEBLANC Comment: salivary glands goneDec 21, 2009 Entered By: TIANNA LEBLANC Comment: SCC, necklymph nodes, left nipple,2001Dec 21, 2009 Entered By: TIANNA LEBLANC [facility] Entered By: TIANNA LEBLANC Comment: records scanned [facility] Hyperkalemia * (ICD-9-CM 276.7) Active Condition [facility] Impacted Cerumen Active Condition [facility] Thong [facility] Internal hemorrhoids without mention of complication (ICD-9-CM 455.0) Active Condition [facility] Low Back Pain Active Condition [facility] Major Depressive Disorder, Recurrent Active Condition [facility] Major Depressive Disorder, Recurrent, Severe, without Psychotic Features (ICD-9- Active Condition [facility] Melanoma of Skin Active Condition Dec 21, 2008 Entered By: TIANNA LEBLANC Comment: Dr Day, several removed [facility] Memory loss Active Condition [facility] Mood Disorder NOS Active Condition [facility] Nicotine Dependence Active Condition Dec 21, 2009 Entered By: TIANNA LEBLANC Comment: declines treatment [facility] PANIC D/O W/0 AGORA Active Condition [facility] Personal History of Colonic Polyps Active Condition Nov 08, 2010 Entered By: ROMAINE ROBLES Comment: Due for repeat colonoscopy 08/2011 - 09/2011May 2011 Entered By: ANNMARIE GUARDADO Comment: repeat colonoscopy due in 08/2012 [facility] Prostate cancer Active Condition [facility] Sensory neuropathy Active Condition [facility] Tobacco use Active Condition [facility] Tobacco Use * (ICD-9-CM 305.1) Active Condition [facility] Vitamin D deficiency (SNOMED CT [id number]) Active Condition [facility] Medications Combined list of outpatient medications from [...] DAY ORAL ACTIVE CAR FIGUEREDO MD 2018 [facility] Immunizations Combined list of available immunizations from the Department of [facility] and Veterans Affairs facilities. Immunization Series Date Given Administered By Site Reaction Lot Number CVX Code Drug Buggy Runner Status Comments Source COVID-19 (MODERNA), MRNA, LNP-S, PF, 100 MCG/0.5 ML DOSE 2 2020 207 complet ed MOD; [id number]; 1 [facility] COVID-19 (MODERNA), MRNA, LNP-S, PF, 100 MCG/0.5 ML DOSE 1 2020 207 complet ed MOD; [id number]; 1 [facility] TDAP 2012 115 complet ed Left Deltoid [facility] Encounters Combined list of: 1) Encounters from [facility] facilities going backup to the last 18 months, not all [place] inpatient encounters are included; 2) Encounters from the [facility] facilities going backup to 280 months. Location Location Details Encounter Type Encounter Number Reason For Visit Attending Provider ADM Date DC Date Status Disposition Source [facility] Outpatient Encounter [id number] 04/[address] [facility] Procedures Combined list of: 1) Procedures from [facility] facilities going back up to thelast 18 months, not all [place] non-surgical procedures are included; 2) All procedures from the Department [facility] facilities. Procedure Procedure Type Code Date Perfomer Comments Jose Luisc e COLLECTION OF VENOUS BLOOD B Y VENIPUNCTURE 11/22/2005 [facility] COLLECTION OF VENOUS BLOOD B Y VENIPUNCTURE 05/16/2005 [facility] Social History Combined list of available smoking, tobacco, and other social history from Department of [facility] and [facility] facilities. Social History Type Response Date Comment Sourc e Tobacco smoking status NHIS VA-TOBACCO USE 30 YEARS OR MORE 01/03/2021 [facility] History of tobacco use VA-TOBACCO USE WI 30 MIN OF WAKEUP 01/03/2021 [facility] History of tobacco use VA-TOBACCO USE TOUCH UP PAINTER YES 06/22/2019 [facility] History of tobacco use VA-TOBACCO USER EVERY DAY 02/24/2018 [facility] History of tobacco use TOBACCO USER OFFERED MEDS 11/27/2017 [facility] History of tobacco use QUIT TOBACCO >7 YEARS AGO 11/30/2014 [facility] History of tobacco use CURRENT TOBACCO USER 01/04/2014 [facility] of tobacco use CURRENT TOBACCO USER 01/20/2013 [facility] History of tobacco use CURRENT TOBACCO USER 06/25/2012 [facility] History of tobacco use CURRENT TOBACCO USER 07/19/2011 [facility] History of tobacco use CURRENT TOBACCO USER 07/17/2010 [facility] History of tobacco use CURRENT TOBACCO USER 12/20/2009 [facility] History of tobacco use CURRENT TOBACCO USER 12/21/2008 [facility] History of tobacco use CURRENT TOBACCO USER 10/28/2006 [facility] History of tobacco use PT REFUSED SMOKING CESSATION CLASSES 02/04/2004 [facility] History of tobacco use CURRENT TOBACCO USER 07/03/2001 [facility] This section is an empty social history section. DoD
--- NOTE | 2024-10-31 09:03 | ECG_ITS ---
Test Date: 2024-10-31 09:09:53 Measurements Intervals [place] Rate: 85 P: 37 KS: 154 QRS: 3 QRSD: 91 T: 24 QT: 373 QTc: 444 Interpretive Statements SINUS RHYTHM EARLY PRECORDIAL R/S TRANSITION VOLTAGE CRITERIA FOR LVH BASELINE ARTIFACT- I, II, AVR, AVL, AVF, V1-V6 BORDERLINE ECG Compared to ECG 07/28/2024 08:47:14 No significant changes Electronically Signed On 10-31-2024 10:47:53 PAINT DIPPER by Walt Millard D.O.
[2024-10-31 09:05] LABS: Basophils Absolute Auto 0.1 K/mm3 (0.0-0.1); Basophils Percent Auto 0.5 % (0.2-1.2); Eosinophils Absolute Auto 0.2 K/mm3 (0-0.3); Hematocrit 49.2 % (42.0-52.0); Hemoglobin 15.2 g/dL (14.0-18.0); Immature Granulocyte Absolute 0.21 K/mm3 (0.00-0.031); Immature Granulocyte Percent A 1.4 % (0-0.5); Lymphocytes Absolute Auto 1.28 K/mm3 (0.9-3.2); Lymphocytes Percent Auto 8.8 % (18.3-44.2); Mean Corpuscular HGB Conc 30.9 g/dl (32-36); Mean Corpuscular Hemoglobin 28.6 pg (26-34); Mean Corpuscular Volume 92.5 fl (80-100); Monocytes Absolute Auto 0.6 K/mm3 (0.1-0.6); Monocytes Percent Auto 4.2 % (2.6-8.5); Neutrophils Absolute Auto 12.3 K/mm3 (1.3-6.7); Neutrophils Percent Auto 84.1 % (45.5-73.1); Platelet Count Result 524 k/mm3 (150-375); Red Blood Count 5.32 M/mm3 (4.6-6.20); Red Cell Distribution Width 13.6 % (11.5-14.5); White Blood Count 14.6 K/mm3 (4.5-10.0)
[2024-10-31] MEDS: ALBUTEROL SULFATE NEB 2.5 MG/3 ML INH 5 MG INHALATION (09:10)
[2024-10-31 09:16] LABS: Alanine Aminotransferase 20 U/L (6-50); Albumin Level 4.2 g/dL (3.5-5.1); Alkaline Phosphatase 142 U/L (38-126); Anion Gap 10 mmol/L (4-12); Aspartate Amino Transferase 25 U/L (17-59); Bilirubin,Total 0.9 mg/dL (0.2-1.3); Blood Urea Nitrogen 27 mg/dL (9-20); Calcium 9.4 mg/dL (8.4-10.2); Carbon Dioxide 37 mmol/L (22-30); Chloride 95 mmol/L (98-107); Estimated CRCL calculation 57 ml/min; Estimated Glomerular Filt Rate > 60; Glucose 201 mg/dL (65-110); Potassium 3.7 mmol/L (3.4-5.0); Sodium 142 mmol/L (137-145)
[2024-10-31 09:16] LABS: Lactic Acid Reflex 1.7 mmol/L (0.7-2.0)
[2024-10-31 09:18] LABS: INR 0.9
[2024-10-31 09:19] LABS: Partial Thromboplastin Time 28.1 Seconds (22.3-36.8)
[2024-10-31 09:41] LABS: Influenza A QL RT-PCR Positive (Negative); Influenza B QL RT-PCR Negative (Negative); RSV RNA, RT-PCR Negative (Negative); SARS-CoV-2 RNA PCR Negative (Negative)
[2024-10-31] MEDS: AZITHROMYCIN 500 MG/NS 250 ML 500 MG/250 ML BAG 250 MG IVPB (10:05)
[2024-10-31 10:42] LABS: Add Urine Microscopic? YES; Appearance Urine Cloudy (Clear); Bacteria Urine None Seen /hpf; Bilirubin Urine 1+ (Negative); Blood Urine Negative (Negative); Color Urine Dark Yellow (Yellow); Glucose Urine UA Negative (Negative); Ketones Urine Trace mg/dL (Negative); Leukocyte Esterase Ur Negative LEU/UL (Negative); Need Manual Microscopic Reviewed; Nitrate Urine Negative (Negative); Non Pathogenic Casts >20; Protein Urine 2+ mg/dL (Negative); RBC Urine 0-2 /hpf (0-2); Specific Grav Ur 1.022 (1.001-1.035); Squamous Epithelial Cell Urine Occasional /hpf (Few); WBC Urine 0-5 /hpf (0-3); pH Urine 5.5 (5.0-9.0)
--- NOTE | 2024-10-31 10:46 | PC.NURSE ---
MD at bedside, pt up to 5L 02. MD gives verbal order for bipap and ABG.
--- NOTE | 2024-10-31 10:47 | PC.NURSE ---
RT notified of MD request for bipap.
[2024-10-31 11:09] LABS: Alveolar/Arterial O2 Gradient 170.6 mmHg; Base Excess ABG 8.4 mEq/l (+/-2.0); Carboxyhemoglobin 1.4 % THb (0-2.0); Fractional Inspired Oxygen 40 %; Methemoglobin ABG 0.1 %THb (0-1.5); Oxygen Content ABG 16.2 %vol (16.0-22.0); Oxygen Saturation ABG 89.6 % (95.0-100.0); PCO2 ABG 51.2 mmHg (35.0-45.0); PO2 ABG 55.7 mmHg (80.0-100.0); PO2 FiO2 Ratio Arterial Blood 1.39 %; Reduced Hemoglobin 10.9 %THb (0-5.0); Total Hemoglobin 13.2 g/dL (12.0-18.0)
[2024-10-31] MEDS: STAT BOLUS COMMUNICATION ORDER 2385 ML IV CONT (11:13)
[2024-10-31 11:19] LABS: Device NASAL CANNULA; Modified Allen's Test Pass; Oxyhemoglobin 87.6 % THb (90.0-100.0); Site Drawn LEFT RADIAL
[2024-10-31] MEDS: SODIUM CHLORIDE 0.9% IV 1,000 ML 999 ML IV CONT (11:19)
[2024-10-31] MEDS: SODIUM CHLORIDE 0.9% IV 400 ML 999 ML IV CONT (11:45)
[2024-10-31] MEDS: PIPERACILLN/TAZ 3.375GM/NS50ML 3.375 GM/50 ML BAG IVPB (11:58)
--- NOTE | 2024-10-31 12:26 | PC.NURSE ---
Kavita from [facility] called at 1222 to report that patient has been accepted to the ICU at [facility] in [place] and is awaiting a bed assignment. reports that they will stay in touch on any updates.
[2024-10-31] MEDS: VANCOMYCIN 2,000 MG/NS 500 ML 2,000 MG/500 ML BAG 250 MG IVPB (12:35)
--- NOTE | 2024-10-31 12:52 | PM.IMHP ---
H&P: HPI History of Present Illness Date/Time: 10/31/24 12:52 Chief Complaint: Dyspnea Narrative: This very pleasant 74 year old male pt with PMH of Prostate CA, GERD, HLD, Asthma, COPD, Tonsilar carcinoma s/p radical neck dissection with chemotherapy and radiation in 2001, melanoma x2 s/p excision, anxiety, depression, arthritis and T12 fracture comes to the ER with complaints of increasing dyspnea and found to have oxygen saturations of 84% on room air. Pt endorses that at the end of September, he was diagnosed with Influenza A, and has not improved since then. 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 As he has had worsening symptoms, it prompted his presentation to the ER. Workup in ER was significant for WBC's 14.6, and being positive still for Influenza A. His ABG is not terrible with pH of 7.44, PCO2 of 51.2, PO2 of 55.7 and HCO3 of 34.0. Pt was initially placed on NC at 5L but remained with sats of 89-90%, and tachycardic. He was placed on BiPap. Imaging performed in the ER with CT Scan of chest shows a 4.4 cm x 3.1 cm cavitary mass at the right lung apex, most likely an abscess and a multi-focal PNA. There were no effusions or pneumothorax. No cardiomegaly, but there are emphysematic changes. The ER physician spoke with Dr. Wright, ribbon tier today for consult only for Pulmonology and he advised to place pt on Vancomycin, Zosyn, and Azithromycin and attempt transfer to [facility]. ER physician is awaiting to hear back from [facility] regarding potential Transfer. We will admit here to begin treatment pending transfer if accepted. ER physician asked to notify me if accepted. In the meantime, will continue with current treatments already started. Blood cultures are pending. 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 Prostate cancer Recently discovered on biopsy. Apparently low-grade and is being followed by surveillance. Melanoma Melanoma x2 excised from the chest. Anxiety Depression Arthritis Back fracture T12 fracture in 1992. Surgical History Surgical History Status post-operative repair of closed fracture of left hip Status post surgical removal of malignant neoplasm of skin Including melanoma from the chest and basal cell carcinoma from the cheek and arms. History of back surgery Hx of appendectomy Family History Family History Mother Congestive heart failure Social History Social History Social History: The patient is to his 3rd and lives in [place]. He has 13 children, youngest is 3. He is retired, worked for the [employer]. He designates his , Nicole, as his surrogate decision maker and he wishes to be a full code. Smoking packs per day: 1 Smoking cigarettes per day: 20.0 Years smoked: 55 Smoking pack-years: 55.00 Smoking status: Current every day smoker Tobacco type: cigarettes Alcohol intake: never Substance use: never Substance use type: does not use Lack of Transportation: No Lack of Food: Never True Current Housing: I Have Housing Concerned About Future Housing: No Difficulty Paying Gas/Electric Bills: No Difficulty Paying for Meds: No Currently Unemployed: No Education: Bachelor's Degree Difficulty w/ Childcare or Family Care: No Living arrangements: with family Additional living arrangements comments: Occupation/Education: retired Gender identity (if verbalized by the patient): Male Sexual Orientation (if Verbalized by the Patient): Straight or Heterosexual Spiritual care concerns: No Agree to blood products: Yes Meds Home Medications and Allergies Home Medications ?Medication ?Instructions ?Recorded ?Confirmed ?Type albuterol sulfate 90 mcg/actuation 1 puff inhalation Q4H PRN cough 02/12/23 07/28/24 Rx aerosol inhaler (ProAir HFA) #8.5 grams fluticasone fur. 100 mcg-umeclid 1 inh inhalation DAILY #28 ea 08/21/24 11/05/24 Rx 62.5 mcg-vilant 25 mcg inhalat.powder (Trelegy Ellipta) omeprazole 20 mg capsule,delayed 20 mg PO BID #180 caps 06/25/24 07/28/24 Rx release lorazepam 2 mg tablet 2 mg PO BID PRN Anxiety #60 tabs 08/21/24 Rx phenelzine 15 mg tablet 15 mg PO TID #270 tabs 08/21/24 Rx Allergies Allergy/AdvReac Type Severity Reaction Status Date / Time No Known Allergies Allergy Verified 10/31/24 08:53 Vital Signs Vital Signs - 24 hr 10/31/24 08:46 10/31/24 08:54 10/31/24 09:10 Temperature 97.8 F Pulse Rate 94 81 Respiratory Rate 20 20 Blood Pressure 117/71 Pulse Oximetry 93 94 Oxygen Delivery Nasal Cannula Nasal Cannula Oxygen Flow Rate 2 2 10/31/24 09:47 10/31/24 10:45 10/31/24 11:00 Temperature Pulse Rate 89 87 85 Respiratory Rate 21 H 15 16 Blood Pressure 108/61 86/60 L 90/57 L Pulse Oximetry 91 87 L 90 Oxygen Delivery Oxygen Flow Rate 10/31/24 11:10 10/31/24 11:25 10/31/24 11:37 Temperature Pulse Rate 76 70 69 Respiratory Rate 24 H 14 15 Blood Pressure 98/65 L Pulse Oximetry 95 94 97 Oxygen Delivery BiPAP Oxygen Flow Rate H&P: Results Labs Labs: Short CBC 10/31/24 Range/Units 08:55 WBC 14.6 H (4.5-10.0) K/mm3 Hgb 15.2 (14.0-18.0) g/dL Hct 49.2 (42.0-52.0) % Plt Count 524 H D (150-375) k/mm3 BMP 10/31/24 08:55 Sodium 142 Potassium 3.7 Chloride 95 L Carbon Dioxide 37 H BUN 27 H Creatinine 1.08 Glucose 201 H Calcium 9.4 Liver Function 10/31/24 Range/Units 08:55 Total Bilirubin 0.9 (0.2-1.3) mg/dL AST 25 (17-59) U/L ALT 20 (6-50) U/L Alkaline Phosphatase 142 H (38-126) U/L Albumin 4.2 (3.5-5.1) g/dL Urine 02/08/25 Range/Units 10:01 Urine Color Dark yellow (Yellow) Urine Appearance Cloudy H (Clear) Urine pH 5.5 (5.0-9.0) Ur Specific [place] 1.022 (1.001-1.035) Urine Protein 2+ H (Negative) mg/dL Urine Glucose (UA) Negative (Negative) mg/dL Assessment and Plan Assessment and plan (1) Respiratory failure: Code(s): J96.90 - Respiratory failure, unspecified, unspecified whether with hypoxia or hypercapnia Status: Acute (2) Lung mass: Code(s): R91.8 - Other nonspecific abnormal finding of lung field Status: Acute (3) Nicotine addiction: Code(s): F17.200 - Nicotine dependence, unspecified, uncomplicated Status: Acute
--- NOTE | 2024-10-31 12:53 | PC.NURSE ---
accepting provider at [facility] in [place] is Dr. Enriquez. transfer center reports all facilities are at capacity at this time
[2024-10-31 13:04] LABS: MRSA (PCR) NOT DETECTED (NOT DETECTE)
--- NOTE | 2024-10-31 13:28 | PC.NURSE ---
gave report to Gavino at 1319 for ICU bed 17 at [facility], all questions answered.
[2024-10-31] MEDS: IPRATROPIUM BR 0.02% INH SOLN 0.5 MG/2.5 ML VIAL INHALATION (14:16)
[2024-10-31] MEDS: ALBUTEROL SULFATE NEB 2.5 MG/3 ML INH INHALATION (14:17)
--- NOTE | 2024-10-31 14:32 | PC.NURSE ---
spoke to patient spouse David per their request to provide update. all question answered.
--- NOTE | 2024-10-31 15:19 | PC.NURSE ---
transport arrives to get pt at 1450.
== END 2024-10-31 15:15 | disposition short-term general hospital (02) ==
LOC: ANHED 08:50
PROVIDERS: Emergency Provider Emergency Medicine; PCP Family Medicine
DX: J10.00 Influenza due to other identified influenza virus with unspecified type of pneumonia (principal); J18.9 Pneumonia, unspecified organism; J43.9 Emphysema, unspecified; J98.4 Other disorders of lung; Z20.822 Contact with and (suspected) exposure to COVID-19; E78.5 Hyperlipidemia, unspecified; K21.9 Gastro-esophageal reflux disease without esophagitis; M19.90 Unspecified osteoarthritis, unspecified site; F32.A Depression, unspecified; F41.9 Anxiety disorder, unspecified; F17.210 Nicotine dependence, cigarettes, uncomplicated; Z85.46 Personal history of malignant neoplasm of prostate; Z85.820 Personal history of malignant melanoma of skin; Z85.818 Personal history of malignant neoplasm of other sites of lip, oral cavity, and pharynx; Z92.21 Personal history of antineoplastic chemotherapy; Z92.3 Personal history of irradiation; Z79.899 Other long term (current) drug therapy
CPT/HCPCS: 36415; 36600; 71046; 71250; 80053; 81001; 82375; 82805; 83050; 83605; 85018; 85025; 85610; 85730; 87040; 87637; 87641; 93005; 94640; 96365; 96366; 96367; 96368; 99285; J0456; J0696; J2543; J3370; J7030; J7040

== ENCOUNTER 2024-11-20 08:38 | Emergency (ER) | payer MEDICARE, SELFPAY ==
[2024-11-20 08:50] VITALS: BP 107/63; PULSE 80; RESP 16; TEMP 36.2; O2SAT 95
--- NOTE | 2024-11-20 09:19 | ED.GENADULT ---
HPI - General Adult General Chief complaint: Back Pain/Injury Stated complaint: right back side and RT rib soreness History of Present Illness HPI narrative: Rogelio Kearney Is a 74-year-old male with past medical history COPD who presents today with reports of having right-sided back rib pain this been going on for about 2 months. Looking at his medical records he was admitted for flu a/ pneumonia earlier this month. he followed up with his primary care doctor a week ago and was started on Flexeril to help with his pain which he states is not helping that much. Reviewing his other medical record that shows that there was a mass found in the right lung concerning for malignancy and recommended follow-up in 1-3 months. I discussed this finding with patient he said is he is aware of this finding but it was not discussed at his last primary care appointment. He denies shortness of breath he says that his shortness of breath has greatly improved from early in the month when he was getting treated for pneumonia. He finished his antibiotics and his steroid pack recently Related Data Allergies Allergy/AdvReac Type Severity Reaction Status Date / Time No Known Allergies Allergy Verified 11/20/24 08:51 Review of Systems Review of Systems: All systems reviewed & are unremarkable except as noted in HPI and below PMFSH Past Medical History Medical History Nicotine addiction Lung mass Respiratory failure Hx of malignant neoplasm of prostate GERD without esophagitis Hyperlipidemia Skin cancer Asthma History of fracture of left hip COPD (chronic obstructive pulmonary disease) Tobacco use disorder, severe, dependence 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 Prostate cancer Recently discovered on biopsy. Apparently low-grade and is being followed by surveillance. Melanoma Melanoma x2 excised from the chest. Anxiety Depression Arthritis Back fracture T12 fracture in 1992. Surgical History Surgical History Status post-operative repair of closed fracture of left hip Status post surgical removal of malignant neoplasm of skin Including melanoma from the chest and basal cell carcinoma from the cheek and arms. History of back surgery Hx of appendectomy Family History Family History Mother Congestive heart failure Social History Social History Social History: The patient is to his 3rd and lives in [place]. He has 13 children, youngest is 3. He is retired, worked for the [employer]. He designates his , Nicole, as his surrogate decision maker and he wishes to be a full code. Smoking packs per day: 1 Smoking cigarettes per day: 20.0 Years smoked: 55 Smoking pack-years: 55.00 Smoking status: Former smoker Tobacco type: cigarettes Alcohol intake: never Substance use: never Substance use type: does not use Lack of Transportation: No Lack of Food: Never True Current Housing: I Have Housing Concerned About Future Housing: No Difficulty Paying Gas/Electric Bills: No Difficulty Paying for Meds: No Currently Unemployed: No Education: Bachelor's Degree Difficulty w/ Childcare or Family Care: No Living arrangements: with family Additional living arrangements comments: Occupation/Education: retired Gender identity (if verbalized by the patient): Male Sexual Orientation (if Verbalized by the Patient): Straight or Heterosexual Spiritual care concerns: No Agree to blood products: Yes Exam Narrative: GENERAL: Well-appearing, well-nourished, and in no acute distress. HEAD: Normocephalic, atraumatic. EYES: PERRLA and EOMI. ENT: Nares clear, no rhinorrhea or epistaxis. Mucous membranes moist. Oropharynx without tonsillar hypertrophy exudate or other lesions. Bilateral TMs pearly cobian nonbulging NECK: Supple. No adenopathy or masses. No carotid bruits or JVD CHEST: Clear to diminished in the bases to auscultation. No respiratory distress. No wheezes rales or rhonchi HEART: Regular rate and rhythm. No murmur heard. Normal peripheral pulses. ABDOMEN: Soft, nontender, nondistended, normal active bowel sounds. EXTREMITIES: Normal range of motion. No edema. SKIN: Warm, dry, no rash. NEURO: No focal deficits. Alert and oriented x3. PSYCH: Normal mood and affect. Course Course Level of Care: Express Care Visit Vital Signs Vital signs: Vital Signs Temperature 36.2 C L 11/20/24 08:50 Pulse Rate 80 11/20/24 08:50 Respiratory Rate 16 11/20/24 08:50 Blood Pressure 107/63 11/20/24 08:50 Pulse Oximetry 95 11/20/24 08:50 Oxygen Delivery Room Air 11/20/24 08:50 Temperature 36.2 C L 11/20/24 08:50 Pulse Rate 80 11/20/24 08:50 Respiratory Rate 16 11/20/24 08:50 Blood Pressure 107/63 11/20/24 08:50 Pulse Oximetry 95 11/20/24 08:50 Oxygen Delivery Room Air 11/20/24 08:50 Medical Decision Making MDM Narrative Medical decision making narrative: 74-year-old male with history of COPD recent treatment for pneumonia who presents with this ongoing right-sided back rib pain that started 2 months ago. He was started on muscle relaxers from his primary care doctor for this pain but states that is not helping much. Will check another chest x-ray. He denies shortness of breath. Oxygen is 95% on room air. Respirations are even and nonlabored lung sounds are clear to diminished in the bases. Chest x-ray- Showing the pattern is consistent with resolving pneumonia encouraged patient that he can also take Tylenol for his pain he can continue the Flexeril as previously ordered by his primary care doctor and will also try topical Voltaren gel that he may apply for pain control. Encouraged patient to follow-up with his primary care doctor if this pain management does not help to see if he can get started on the a different medication for the pain. Also encouraged patient that the CT recommended repeat imaging in 1-3 months from that 1st imaging regarding that mass in the right lung is not a could be related to the pneumonia that he was getting treated for. He was also made aware that this repeat imaging can be ordered through his primary care doctor. patient is updated on his imaging and plan for discharge home with continue medications as previously ordered and will add on Voltaren gel to help with his pain. return precautions discussed. Medical Records Medical records reviewed: Yes I reviewed the external patient's medical records. Vital Signs Vital Signs: Vital Signs Temperature 36.2 C L 11/20/24 08:50 Pulse Rate 80 11/20/24 08:50 Respiratory Rate 16 11/20/24 08:50 Blood Pressure 107/63 11/20/24 08:50 Pulse Oximetry 95 11/20/24 08:50 Oxygen Delivery Room Air 11/20/24 08:50 Temperature 36.2 C L 11/20/24 08:50 Pulse Rate 80 11/20/24 08:50 Respiratory Rate 16 11/20/24 08:50 Blood Pressure 107/63 11/20/24 08:50 Pulse Oximetry 95 11/20/24 08:50 Oxygen Delivery Room Air 11/20/24 08:50 vitals reviewed by me Discharge Plan Discharge Clinical Impression: Rib pain on right side Patient Disposition: Home, Self-Care Condition: Stable Instructions: Antibiotic Form Additional Instructions: continue to take your cyclobenzaprine that your primary care doctor has ordered for your pain you may also take Tylenol for pain as needed and you can start trying the topical Voltaren gel medicine to the pharmacy to help with her pain. Your x-ray today is showing patterns consistent with resolving pneumonia. You will need follow-up with her primary care doctor for repeat imaging in 1-2 months for the area that was found on your right lung that we talked about. If you develop any worsening symptoms such as chest pain, shortness of breath, difficulty breathing, vomiting or any other concerns proceed to the ER. Patient Language: Estonian Prescriptions: New diclofenac sodium [Voltaren Arthritis Pain] 1 % gel 4 g topical TID PRN (Reason: pain, moderate) Qty: 100 0RF Rx Instructions: apply to area of pain three times daily as needed No Action Trelegy Ellipta 100-62.5-25 mcg blister with device 1 inh inhalation DAILY Qty: 28 5RF nicotine 21 mg/24 hr patch 24 hour 1 patch transdermal DAILY Qty: 7 0RF lorazepam 2 mg tablet 2 mg PO BID PRN (Reason: Anxiety) Qty: 60 2RF cyclobenzaprine 5 mg tablet 5 mg PO TID PRN (Reason: muscle pain) Qty: 60 0RF omeprazole 20 mg capsule,delayed release(DR/EC) 20 mg PO BID Qty: 180 1RF Rx Instructions: Take one in the AM with breakfast and one in the PM with dinner phenelzine 15 mg tablet 15 mg PO TID Qty: 270 1RF Follow-up/Referrals: Pal Matthews MD [Primary Care Provider] - 1 Week Time of Disposition: 10:00
== END 2024-11-20 10:10 | disposition home or self-care (01) ==
PROVIDERS: Emergency Provider Nurse Practitioner Family; PCP Family Medicine
DX: R07.81 Pleurodynia (principal); E78.5 Hyperlipidemia, unspecified; Z85.46 Personal history of malignant neoplasm of prostate; Z85.828 Personal history of other malignant neoplasm of skin; Z87.891 Personal history of nicotine dependence
CPT/HCPCS: 71046; 99213; G0463

== ENCOUNTER 2024-12-18 23:36 | Emergency (ER) | payer MEDICARE, SELFPAY ==
--- NOTE | ~2024-12-18 | XR_ITS ---
EXAMINATION: XR shoulder RT min 2V DATE: 12/19/2024 04:29 INDICATION: Right shoulder pain. TECHNIQUE: 3 views of right shoulder were obtained. COMPARISON: None. FINDINGS: Alignment is normal. No fracture. There is mild glenohumeral joint osteoarthritis. There is severe acromioclavicular joint osteoarthritis. There are fixation rods in the spine. IMPRESSION: 1. Polyarticular osteoarthritis. Reviewed, dictated and finalized at location A.
[2024-12-18 23:37] VITALS: BP 107/71; PULSE 82; RESP 18; TEMP 36.6; O2SAT 93
--- OUTSIDE RECORDS SUMMARY | 2024-12-18 23:38 | XMS_ITS | Continuity of Care Document ---
Author Name [facility] Organization [facility] Care Team Providers Care Carpet Mechanic Name Role Phone [facility] Unavailable Unavailable Problems Combined list of problems from Department of Defense and [facility] Affairs facilities. It does not include entries that were removed or entered in error. 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 [facility] Folliculitis Active 1 Condition [facility] Malignant neoplasm of skin Active 1 Condition [facility] Melanoma of Skin Active 1 Condition [facility] Anxiety Disorder NOS Active 2 Condition [facility] Anxiety Disorder * (ICD-9-CM 300.00) Active Condition [facility] Anxiety Disorder NOS Active Condition [facility] Basal cell carcinoma of skin Active Condition [facility] Depression * (ICD-9-CM 300.4/311.) Active Condition [facility] Depression * (ICD-9-CM 311./300.4) Active Condition [facility] Dysthymic Disorder (ICD-9-CM 300.4) Active Condition [facility] Elevated PSA Active Condition [facility] Head and Neck Cancer, Unknown Site Active Condition Dec 21, 2008 Entered By: TIANNA LEBLANC Comment: has received radiation post neck surgeryDec 21, 2008 Entered By: TIANNA LEBLANC Comment: salivary glands goneDec 21, 2009 Entered By: TIANNA LEBLANC Comment: SCC, necklymph nodes, left nipple,2001Dec 21, 2009 Entered By: TIANNA LEBLANC [facility] Entered By: TIANNA LEBLANC Comment: records scanned [facility] Hyperkalemia * (ICD-9-CM 276.7) Active Condition [facility] Impacted Cerumen Active Condition [facility] Thong [facility] Internal hemorrhoids without mention of complication (ICD-9-CM 455.0) Active Condition [facility] Low Back Pain Active Condition [facility] Major Depressive Disorder, Recurrent Active Condition [facility] Major Depressive Disorder, Recurrent, Severe, without Psychotic Features (ICD-9- Active Condition [facility] Melanoma of Skin Active Condition Dec 21, 2008 Entered By: TIANNA LEBLANC Comment: Dr Day, several removed [facility] Memory loss Active Condition [facility] Mood Disorder NOS Active Condition [facility] Nicotine Dependence Active Condition Dec 21, 2009 Entered By: TIANNA LEBLANC Comment: declines treatment [facility] PANIC D/O W/0 AGORA Active Condition [facility] Personal History of Colonic Polyps Active Condition Nov 08, 2010 Entered By: ROMAINE ROBLES Comment: Due for repeat colonoscopy 08/2011 - 09/2011May 2011 Entered By: ANNMARIE GUARDADO Comment: repeat colonoscopy due in 08/2012 [facility] Prostate cancer Active Condition [facility] Sensory neuropathy Active Condition [facility] Tobacco use Active Condition [facility] Tobacco Use * (ICD-9-CM 305.1) Active Condition [facility] Vitamin D deficiency (SNOMED CT 27454429) Active Condition [facility] Medications Combined list of outpatient medications [...] DAY ORAL ACTIVE CAR FIGUEREDO MD 2018 [facility] Immunizations Combined list of available immunizations from the Department of [facility] and Veterans Affairs facilities. Immunization Series Date Given Administered By Site Reaction Lot Number CVX Code Drug Rework Machine Operator Status Comments Source COVID-19 (MODERNA), MRNA, LNP-S, PF, 100 MCG/0.5 ML DOSE 2 2020 207 complet ed MOD; [id number]; 1 [facility] COVID-19 (MODERNA), MRNA, LNP-S, PF, 100 MCG/0.5 ML DOSE 1 2020 207 complet ed MOD; [id number]; 1 [facility] TDAP 2012 115 complet ed Left Deltoid [facility] Social History Combined list of available smoking, tobacco, and other social history from Department of Defense and Veterans Affairs facilities. 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 Alonzo Hernandez [facility] History of tobacco use CURRENT TOBACCO USER 07/17/2010 [facility] History of tobacco use CURRENT TOBACCO USER 12/20/2009 [facility] History of tobacco use CURRENT TOBACCO USER 12/21/2008 [facility] History of tobacco use CURRENT TOBACCO USER 10/28/2006 [facility] History of tobacco use PT REFUSED SMOKING CESSATION CLASSES 02/04/2004 [facility] History of tobacco use CURRENT TOBACCO USER 07/03/2001 [facility]
--- OUTSIDE RECORDS SUMMARY | 2024-12-18 23:38 | XMS_ITS | Clinical Summary ---
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
--- OUTSIDE RECORDS SUMMARY | 2024-12-18 23:38 | XMS_ITS | Clinical Summary ---
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 Gender Identity Not on file Sexual Orientation Not on file Last Filed Vital Signs Vital Sign Reading Time Taken Comments Blood Pressure 117/63 09/19/2021 11:05 AM OTHER SPATIAL SCIENTIST Pulse 75 09/19/2021 11:05 AM OTHER SPATIAL SCIENTIST Temperature 36.6 C (97.9 F) 09/19/2021 11:05 AM OTHER SPATIAL SCIENTIST Respiratory Rate - - Oxygen Saturation 91% 09/19/2021 11: 05 AM OTHER SPATIAL SCIENTIST Inhaled Oxygen Concentration - - Weight 79.7 kg (175 lb 11.2 oz) 021 11:05 AM OTHER SPATIAL SCIENTIST Height 182.9 cm (6') 09/19/2021 11:05 AM OTHER SPATIAL SCIENTIST Body Mass Index 23.83 09/19/2021 11:05 AM OTHER SPATIAL SCIENTIST Plan of Treatment Health Maintenance Due Date Last Done Comments DTAP/TDAP/TD VACCINES (1 - Tdap) 1967 PNEUMOCOCCAL VACCINE 50+ YEARS (1 of 2 - PCV) 07/26/19 67 ZOSTER VACCINE (1 of 2) 1998 RSV VACCINE (60+ or ) (1 - 1-dose 75+ series) 2023 INFLUENZA VACCINE (#1) 2024 Insurance MEDICARE PART A [place] B [place]
--- NOTE | 2024-12-19 02:20 | PC.NURSE ---
pt has lidocaine pt on upon arrival. This RN removed patch to look at pt area of concern
--- OUTSIDE RECORDS SUMMARY | 2024-12-19 02:34 | XMS_ITS | Clinical Summary ---
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
--- OUTSIDE RECORDS SUMMARY | 2024-12-19 02:34 | XMS_ITS | Clinical Summary ---
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 Gender Identity Not on file Sexual Orientation Not on file Last Filed Vital Signs Vital Sign Reading Time Taken Comments Blood Pressure 117/63 09/19/2021 11:05 AM CONVEYOR LINE BAKERY WORKER Pulse 75 09/19/2021 11:05 AM CONVEYOR LINE BAKERY WORKER Temperature 36.6 C (97.9 F) 09/19/2021 11:05 AM CONVEYOR LINE BAKERY WORKER Respiratory Rate - - Oxygen Saturation 91% 09/19/2021 11: 05 AM CONVEYOR LINE BAKERY WORKER Inhaled Oxygen Concentration - - Weight 79.7 kg (175 lb 11.2 oz) 021 11:05 AM CONVEYOR LINE BAKERY WORKER Height 182.9 cm (6') 09/19/2021 11:05 AM CONVEYOR LINE BAKERY WORKER Body Mass Index 23.83 09/19/2021 11:05 AM CONVEYOR LINE BAKERY WORKER Plan of Treatment Health Maintenance Due Date Last Done Comments DTAP/TDAP/TD VACCINES (1 - Tdap) 1967 PNEUMOCOCCAL VACCINE 50+ YEARS (1 of 2 - PCV) 07/26/19 67 ZOSTER VACCINE (1 of 2) 1998 RSV VACCINE (60+ or ) (1 - 1-dose 75+ series) 2023 INFLUENZA VACCINE (#1) 2024 Insurance MEDICARE PART A AND B [place]ID [place]
--- OUTSIDE RECORDS SUMMARY | 2024-12-19 02:34 | XMS_ITS | Continuity of Care Document ---
Author Name [facility] Organization [facility] Care Team Providers Care Mud Worker Name Role Phone [facility] Unavailable Unavailable Problems Combined list of problems from Department of Defense and [facility] Affairs facilities. It does not include entries that were removed or entered in error. 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 [facility] Folliculitis Active 1 Condition [facility] Malignant neoplasm of skin Active 1 Condition [facility] Melanoma of Skin Active 1 Condition [facility] Anxiety Disorder NOS Active 2 Condition [facility] Anxiety Disorder * (ICD-9-CM 300.00) Active Condition [facility] Anxiety Disorder NOS Active Condition [facility] Basal cell carcinoma of skin Active Condition [facility] Depression * (ICD-9-CM 300.4/311.) Active Condition [facility] Depression * (ICD-9-CM 311./300.4) Active Condition [facility] Dysthymic Disorder (ICD-9-CM 300.4) Active Condition [facility] Elevated PSA Active Condition [facility] Head and Neck Cancer, Unknown Site Active Condition Dec 21, 2008 Entered By: TIANNA LEBLANC Comment: has received radiation post neck surgeryDec 21, 2008 Entered By: TIANNA LEBLANC Comment: salivary glands goneDec 21, 2009 Entered By: TIANNA LEBLANC Comment: SCC, necklymph nodes, left nipple,2001Dec 21, 2009 Entered By: TIANNA LEBLANC [facility] Entered By: TIANNA LEBLANC Comment: records scanned [facility] Hyperkalemia * (ICD-9-CM 276.7) Active Condition [facility] Impacted Cerumen Active Condition [facility] Thong [facility] Internal hemorrhoids without mention of complication (ICD-9-CM 455.0) Active Condition [facility] Low Back Pain Active Condition [facility] Major Depressive Disorder, Recurrent Active Condition [facility] Major Depressive Disorder, Recurrent, Severe, without Psychotic Features (ICD-9- Active Condition [facility] Melanoma of Skin Active Condition Dec 21, 2008 Entered By: TIANNA LEBLANC Comment: Dr Day, several removed [facility] Memory loss Active Condition [facility] Mood Disorder NOS Active Condition [facility] Nicotine Dependence Active Condition Dec 21, 2009 Entered By: TIANNA LEBLANC Comment: declines treatment [facility] PANIC D/O W/0 AGORA Active Condition [facility] Personal History of Colonic Polyps Active Condition Nov 08, 2010 Entered By: ROMAINE ROBLES Comment: Due for repeat colonoscopy 08/2011 - 09/2011May 2011 Entered By: ANNMARIE GUARDADO Comment: repeat colonoscopy due in 08/2012 [facility] Prostate cancer Active Condition [facility] Sensory neuropathy Active Condition [facility] Tobacco use Active Condition [facility] Tobacco Use * (ICD-9-CM 305.1) Active Condition [facility] Vitamin D deficiency (SNOMED CT 32654393) Active Condition [facility] Medications Combined list of outpatient medications from [...] ORAL ACTIVE CAR FIGUEREDO MD 2018 [facility] Immunizations Combined list of available immunizations from the Department of [facility] and Veterans Affairs facilities. Immunization Series Date Given Administered By Site Reaction Lot Number CVX Code Drug Oil Furnace Installer Status Comments Source COVID-19 (MODERNA), MRNA, LNP-S, PF, 100 MCG/0.5 ML DOSE 2 2020 207 complet ed MOD; [id number]; 1 [facility] COVID-19 (MODERNA), MRNA, LNP-S, PF, 100 MCG/0.5 ML DOSE 1 2020 207 complet ed MOD; [id number]; 1 [facility] TDAP 2012 115 complet ed Left Deltoid [facility] Social History Combined list of available smoking, tobacco, and other social history from Department of Defense and Veterans Affairs facilities. Social History Type Response Date Comment Sourc e Tobacco smoking status NHIS VA-TOBACCO USE WI 30 MIN OF WAKEUP 01/03/2021 [facility] History of tobacco use VA-TOBACCO USER EVERY DAY 01/03/2021 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 History of tobacco use VA-TOBACCO USER EVERY DAY 02/24/2018 [facility] History of tobacco use TOBACCO USER OFFERED MEDS 11/27/2017 [facility] History of tobacco use QUIT TOBACCO >7 YEARS AGO 11/30/2014 [facility] History of tobacco use CURRENT TOBACCO USER 01/04/2014 [facility] History of tobacco use CURRENT TOBACCO USER 01/20/2013 [facility] History of tobacco use CURRENT TOBACCO USER 06/25/2012 [facility] History of tobacco use CURRENT TOBACCO USER 07/19/2011 [facility] Alonzo Hernandez [facility] History of tobacco use CURRENT TOBACCO USER 07/17/2010 [facility] History of tobacco use CURRENT TOBACCO USER 12/20/2009 [facility] History of tobacco use CURRENT TOBACCO USER 12/21/2008 [facility] History of tobacco use CURRENT TOBACCO USER 10/28/2006 [facility] History of tobacco use PT REFUSED SMOKING CESSATION CLASSES 02/04/2004 [facility] History of tobacco use CURRENT TOBACCO USER 07/03/2001 [facility]
--- NOTE | 2024-12-19 04:14 | ED_ITS ---
HPI - General Adult General Chief complaint: Extremity Injury, Upper Stated complaint: right shoulder pain Time Seen by Provider: 12/19/24 02:22 History of Present Illness HPI narrative: This is a 74-year-old male presenting ED with chief complaint of right shoulder pain. Pain is been ongoing for 3 months. It is located primarily in the trapezius and radiates down his arm. It is worse with movement, twisting or carrying things. Patient is very active gardens and takes care of his 4-year-old son at home. He has been using Motrin Tylenol lidocaine patches with some relief. Patient denies trauma, fevers chills chest pain difficulty breathing or abdominal pain. Patient has a lung mass and is scheduled for a follow-up CT next week. 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 Prostate cancer Recently discovered on biopsy. Apparently low-grade and is being followed by surveillance. Melanoma Melanoma x2 excised from the chest. Anxiety Depression Arthritis Back fracture T12 fracture in 1992. Surgical History Surgical History Status post-operative repair of closed fracture of left hip Status post surgical removal of malignant neoplasm of skin Including melanoma from the chest and basal cell carcinoma from the cheek and arms. History of back surgery Hx of appendectomy Family History Family History Mother Congestive heart failure Social History Social History Social History: The patient is to his 3rd and lives in [place]. He has 13 children, youngest is 3. He is retired, worked for the [employer]. He designates his , Nicole, as his surrogate decision maker and he wishes to be a full code. Smoking packs per day: 1 Smoking cigarettes per day: 20.0 Years smoked: 55 Smoking pack-years: 55.00 Smoking status: Former smoker Tobacco type: cigarettes Alcohol intake: never Substance use: never Substance use type: does not use Lack of Transportation: No Lack of Food: Never True Current Housing: I Have Housing Concerned About Future Housing: No Difficulty Paying Gas/Electric Bills: No Difficulty Paying for Meds: No Currently Unemployed: No Education: Bachelor's Degree Difficulty w/ Childcare or Family Care: No Living arrangements: with family Additional living arrangements comments: Occupation/Education: retired Gender identity (if verbalized by the patient): Male Sexual Orientation (if Verbalized by the Patient): Straight or Heterosexual Spiritual care concerns: No Agree to blood products: Yes Exam Narrative: APPEARANCE: No apparent distress. Head: atraumatic. EYES: EOMI, NOSE: Atraumatic NECK: Trachea midline RESPIRATORY: No increased rate of breathing clear to auscultation CARDIOVASCULAR: RRR, no peripheral edema ABDOMINAL: Non-distended MUSCULOSKELETAL: Tenderness to palpation over the right trapezius. Focal exam of the right upper extremity revealed no obvious deformity of varies tenderness. Radial ulnar median nerve distributions are intact. NEURO: Alert. Moving 4/4 extremities SKIN:: Warm, dry. Normal color PSYCHIATRIC: Normal affect Course Vital Signs Vital signs: Vital Signs Temperature 97.8 F 12/18/24 23:37 Pulse Rate 82 12/18/24 23:37 Respiratory Rate 18 12/18/24 23:37 Blood Pressure 107/71 12/18/24 23:37 Pulse Oximetry 93 12/18/24 23:37 Oxygen Delivery Room Air 12/18/24 23:37 Temperature 97.8 F 12/18/24 23:37 Pulse Rate 82 12/18/24 23:37 Respiratory Rate 18 12/18/24 23:37 Blood Pressure 107/71 12/18/24 23:37 Pulse Oximetry 93 12/18/24 23:37 Oxygen Delivery Room Air 12/18/24 23:37 Medical Decision Making MDM Narrative Medical decision making narrative: -Course: 74-year-old male presenting with right shoulder pain. He has point tenderness over the right trapezius. Pain is worse with movement. Pain appears to be musculoskeletal in nature. X-ray negative for fracture/dislocation. Review of his CT from October showed a possible lung abscess versus lung mass that does not correspond with his pain today. He will have a follow-up CT next week for further workup evaluation of the mass. Otherwise patient is well- appearing with stable vital signs. Patient will be discharged to follow-up with primary care physician. -DDX includes but is not limited to: Muscle soreness, cervical radiculopathy, neoplasm Vital Signs Vital Signs: Vital Signs Temperature 97.8 F 12/18/24 23:37 Pulse Rate 82 12/18/24 23:37 Respiratory Rate 18 12/18/24 23:37 Blood Pressure 107/71 12/18/24 23:37 Pulse Oximetry 93 12/18/24 23:37 Oxygen Delivery Room Air 12/18/24 23:37 Temperature 97.8 F 12/18/24 23:37 Pulse Rate 82 12/18/24 23:37 Respiratory Rate 18 12/18/24 23:37 Blood Pressure 107/71 12/18/24 23:37 Pulse Oximetry 93 12/18/24 23:37 Oxygen Delivery Room Air 12/18/24 23:37 Discharge Plan Discharge Clinical Impression: Trapezius strain Patient Disposition: Home, Self-Care Condition: Stable Instructions: Antibiotic Form, Shoulder Pain (ED) Additional Instructions: You were seen in the emergency department for shoulder pain. Continue taking your Motrin and Tylenol and muscle relaxers as needed. Please follow up to get your CT next week for further evaluation of your lung mass. If you develop any new or worsening symptoms please return to the ED for re-evaluation. Patient Language: Libyan Prescriptions: No Action diclofenac sodium [Voltaren Arthritis Pain] 1 % gel 4 g topical TID PRN (Reason: pain, moderate) Qty: 100 0RF Rx Instructions: apply to area of pain three times daily as needed Trelegy Ellipta 100-62.5-25 mcg blister with device 1 inh inhalation DAILY Qty: 28 5RF nicotine 21 mg/24 hr patch 24 hour 1 patch transdermal DAILY Qty: 7 0RF cyclobenzaprine 5 mg tablet 5 mg PO TID PRN (Reason: muscle pain) Qty: 60 0RF omeprazole 20 mg capsule,delayed release(DR/EC) 20 mg PO BID Qty: 180 1RF Rx Instructions: Take one in the AM with breakfast and one in the PM with dinner phenelzine 15 mg tablet 15 mg PO TID Qty: 270 1RF lorazepam 2 mg tablet 2 mg PO BID PRN (Reason: Anxiety) Qty: 60 2RF Follow-up/Referrals: Pal Matthews MD [Primary Care Provider] - 1 Week (Shoulder pain )
[2024-12-19] MEDS: ACETAMINOPHEN 500 MG TABLET 1000 MG PO (04:22)
[2024-12-19 04:30] VITALS: BP 110/68; PULSE 80; RESP 17; O2SAT 98
== END 2024-12-19 04:31 | disposition home or self-care (01) ==
PROVIDERS: Emergency Provider Emergency Medicine; PCP Family Medicine
DX: R91.8 Other nonspecific abnormal finding of lung field (principal); E78.5 Hyperlipidemia, unspecified; J44.9 Chronic obstructive pulmonary disease, unspecified; M19.90 Unspecified osteoarthritis, unspecified site; S46.811A Strain of other muscles, fascia and tendons at shoulder and upper arm level, right arm, initial encounter; F41.9 Anxiety disorder, unspecified; F32.A Depression, unspecified; Z85.46 Personal history of malignant neoplasm of prostate; Z85.820 Personal history of malignant melanoma of skin; Z85.828 Personal history of other malignant neoplasm of skin; Z85.818 Personal history of malignant neoplasm of other sites of lip, oral cavity, and pharynx; Z92.21 Personal history of antineoplastic chemotherapy; Z92.3 Personal history of irradiation; Z87.891 Personal history of nicotine dependence; Z79.899 Other long term (current) drug therapy; X58.XXXA Exposure to other specified factors, initial encounter
CPT/HCPCS: 73030; 99283; A9270

== ENCOUNTER 2024-12-24 08:41 | Outpatient (CLI) | payer OTHER, SELFPAY ==
--- NOTE | ~2024-12-24 | CT_ITS ---
Clinical Indication: Nonspecific abnormal finding of lung field CT Scan of the Chest with Contrast: Technique: Contiguous sections were acquired throughout the chest after intravenous administration of 75 cc of Omnipaque 350. Dose reduction technique was used on this scan by utilizing automated exposu re control and iterative reconstruction technique. The dose-length product (DLP) was 204.78 mGy-cm. COMPARISON: 10/31/2024 Findings: 4.4 x 4.0 cm irregular hypodense masslike lesion is present at the medial right lung apex, probably e xtending to the right superior mediastinum, increased in extent from prior exam. There is no filling defect in the pulmonary arterial tree to suggest pulmonary embolus. There is no evidence of aortic di ssection or aneurysm. There is no evidence of pleural or pericardial effusion. Moderate to advanced emphysema present. There are patchy areas of consolidation and groundglass opaci ty, as well as tree-in-bud opacities, extensively involving the lower lobes, with additional mild inv olvement in the right middle lobe. Images through the upper abdomen reveal small gallstones. Stable fatty lesion at the pancreatic tail. Bilateral renal cysts are noted. Questional subtle 1 cm hypodense left hepatic lobe lesion. Stable T 12 compression fracture. Impression: 4.4 x 4.0 cm irregular hypodense masslike lesion in the medial right lung apex extending to the super ior mediastinum. This is mildly increased from prior exam. Neoplasm is suspected. Abscess is a potent ial alternative consideration. Tissue sampling advised if not already performed. Patchy bibasilar predominant consolidation and groundglass opacity with tree-in-bud opacities, as det dona above. These findings are compatible with infectious/inflammatory process. Moderate to advanced emphysema. Reviewed, dictated and finalized at location M. Impression: 4.4 x 4.0 cm irregular hypodense masslike lesion in the medial right lung apex extending to the superior mediastinum. This is mildly increased from prior exam . Neoplasm is suspected. Abscess is a potential alternative consideration. Tiss ue sampling advised if not already performed. Patchy bibasilar predominant consolidation and groundglass opacity with tree-in -bud opacities, as detailed above. These findings are compatible with infectiou s/inflammatory process. Moderate to advanced emphysema.
--- OUTSIDE RECORDS SUMMARY | 2024-12-24 08:47 | XMS_ITS | Clinical Summary ---
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 Gender Identity Not on file Sexual Orientation Not on file Last Filed Vital Signs Vital Sign Reading Time Taken Comments Blood Pressure 117/63 09/19/2021 11:05 AM RACING DRIVER Pulse 75 09/19/2021 11:05 AM RACING DRIVER Temperature 36.6 C (97.9 F) 09/19/2021 11:05 AM RACING DRIVER Respiratory Rate - - Oxygen Saturation 91% 09/19/2021 11: 05 AM RACING DRIVER Inhaled Oxygen Concentration - - Weight 79.7 kg (175 lb 11.2 oz) 021 11:05 AM RACING DRIVER Height 182.9 cm (6') 09/19/2021 11:05 AM RACING DRIVER Body Mass Index 23.83 09/19/2021 11:05 AM RACING DRIVER Plan of Treatment Health Maintenance Due Date Last Done Comments DTAP/TDAP/TD VACCINES (1 - Tdap) 1967 PNEUMOCOCCAL VACCINE 50+ YEARS (1 of 2 - PCV) 07/26/19 67 ZOSTER VACCINE (1 of 2) 1998 RSV VACCINE (60+ or ) (1 - 1-dose 75+ series) 2023 INFLUENZA VACCINE (#1) 2024 Insurance MEDICARE PART A [place] B [place]ICAID [place]
--- OUTSIDE RECORDS SUMMARY | 2024-12-24 08:47 | XMS_ITS | Continuity of Care Document ---
Author Name [facility] Organization [facility] Care Team Providers Care Police Pilot Name Role Phone [facility] Unavailable Unavailable Problems Combined list of problems from Department of Defense and [facility] Affairs facilities. It does not include entries that were removed or entered in error. 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 Depression * (ICD-9-CM 300.4/311.) Active Condition [facility] Depression * (ICD-9-CM 311./300.4) Active Condition [facility] Dysthymic Disorder (ICD-9-CM 300.4) Active Condition [facility] Elevated PSA Active Condition [facility] Head and Neck Cancer, Unknown Site Active Condition Dec 21, 2008 Entered By: TIANNA LEBLANC Comment: has received radiation post neck surgeryDec 21, 2008 Entered By: TIANNA LEBLANC Comment: salivary glands goneDec 21, 2009 Entered By: TIANNA LEBLANC Comment: SCC, necklymph nodes, left nipple,2001Dec 21, 2009 Entered By: [facility]ANC [facility] Entered By: TIANNA LEBLANC Comment: records scanned [facility] Hyperkalemia * (ICD-9-CM 276.7) Active Condition [facility] Impacted Cerumen Active Condition [facility] Thong [facility] Internal hemorrhoids without mention of complication (ICD-9-CM 455.0) Active Condition [facility] Low Back Pain Active Condition [facility] Major Depressive Disorder, Recurrent Active Condition [facility] Major Depressive Disorder, Recurrent, Severe, without Psychotic Features (ICD-9- Active Condition [facility] Melanoma of Skin Active Condition Dec 21, 2008 Entered By: TIANNA LEBLANC Comment: Dr Day, several removed [facility] Memory loss Active Condition [facility] Mood Disorder NOS Active Condition [facility] Nicotine Dependence Active Condition Dec 21, 2009 Entered By: TIANNA LEBLANC Comment: declines treatment [facility] PANIC D/O W/0 AGORA Active Condition [facility] Personal History of Colonic Polyps Active Condition Nov 08, 2010 Entered By: ROMAINE ROBLES Comment: Due for repeat colonoscopy 08/2011 - 09/2011May 2011 Entered By: ANNMARIE GUARDADO Comment: repeat colonoscopy due in 08/[address] [facility] Prostate cancer Active Condition [facility] Sensory neuropathy Active Condition [facility] Tobacco use Active Condition [facility] Tobacco Use * (ICD-9-CM 305.1) Active Condition [facility] Vitamin D deficiency (SNOMED CT 43199950) Active Condition [facility] Medications Combined list of outpatient medications from [...] of available immunizations from the Department of [facility] and Veterans Affairs facilities. Immunization Series Date Given Administered By Site Reaction Lot Number CVX Code Drug Inker Machine Status Comments Source COVID-19 (MODERNA), MRNA, LNP-S, PF, 100 MCG/0.5 ML DOSE 2 2020 207 complet ed MOD; [id number]; 1 [facility] COVID-19 (MODERNA), MRNA, LNP-S, PF, 100 MCG/0.5 ML DOSE 1 2020 207 complet ed MOD; [id number]; 1 [facility] TDAP 2012 115 complet ed Left Deltoid [facility] Social History Combined list of available smoking, tobacco, and other social history from Department of Defense and Veterans Affairs facilities. Social History Type Response Date Comment Sourc e Tobacco smoking status NHIS VA-TOBACCO USE WI 30 MIN OF WAKEUP 01/03/2021 [facility] History of tobacco use VA-TOBACCO USER EVERY DAY 01/03/2021 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 History of tobacco use VA-TOBACCO USER EVERY DAY 02/24/2018 [facility] History of tobacco use TOBACCO USER OFFERED MEDS 11/27/2017 [facility] History of tobacco use QUIT TOBACCO >7 YEARS AGO 11/30/2014 [facility] History of tobacco use CURRENT TOBACCO USER 01/04/2014 [facility] History of tobacco use CURRENT TOBACCO USER 01/20/2013 [facility] History of tobacco use CURRENT TOBACCO USER 06/25/2012 [facility] History of tobacco use CURRENT TOBACCO USER 07/19/2011 [facility] Alonzo Hernandez [facility] History of tobacco use CURRENT TOBACCO USER 07/17/2010 [facility] History of tobacco use CURRENT TOBACCO USER 12/20/2009 [facility] History of tobacco use CURRENT TOBACCO USER 12/21/2008 [facility] History of tobacco use CURRENT TOBACCO USER 10/28/2006 [facility] History of tobacco use PT REFUSED SMOKING CESSATION CLASSES 02/04/2004 [facility] History of tobacco use CURRENT TOBACCO USER 07/03/2001 [facility]
--- OUTSIDE RECORDS SUMMARY | 2024-12-24 08:47 | XMS_ITS | Clinical Summary ---
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 Gender Identity Not on file Sexual Orientation [...] (2 - 2023-2 5 season) 2024 09/13/2021 Meningococcal B Vaccine Aged Out No l onger eligible based on patient's age to complete this topic Meningococcal Vaccine Aged Out No angelina carlito eligible based on patient's age to complete this topic RSV Immunizations Under 20 Months Aged Out No longer eligible based on patient's age to complete this topic Insurance MEDICARE MEDICAID DEPT OF [address] Care Teams Superintendent Operating Relationship Specialty Start Date End Date Kirsten Matthews MD [address] [place] [address] PCP - General FAMILY PRACTICE 10/23/21
[2024-12-24 09:12] LABS: Estimated Glomerular Filt Rate > 60
== END 2024-12-24 08:42 | disposition home or self-care (01) ==
PROVIDERS: PCP Family Medicine; Visit Provider Family Medicine
DX: R91.8 Other nonspecific abnormal finding of lung field (principal); J43.9 Emphysema, unspecified
CPT/HCPCS: 71260; Q9967

== ENCOUNTER 2024-12-25 16:40 | Emergency (ER) | payer MEDICARE, SELFPAY ==
[2024-12-25] VITALS (12 sets, daily range): BP systolic 93–117; BP diastolic 48–66; PULSE 83–98; RESP 12–23; TEMP 36.7–37.1; O2SAT 90–98
--- NOTE | ~2024-12-25 | XR_ITS ---
CHEST RADIOGRAPH, PA AND LATERAL CLINICAL HISTORY: SOB . COMPARISON: 11/20/2024 and 10/31/2024 TECHNIQUE: PA and lateral views of the chest. FINDINGS Redemonstration of increased density within the superior mediastinum, consistent with cavitary mass w ithin the right apex, seen on prior studies. The remainder of the cardiomediastinal silhouette is otherwise unremarkable. Traction bronchiectasis is noted. Patchy opacification of the bilateral bases, right greater than left, increased from prior. The remainder of the lungs are clear. IMPRESSION: Redemonstration of cavitary mass within the right apex, unchanged from prior. Traction bronchiectasis and increased opacification of the bilateral lung bases, as detailed above. Reviewed, dictated and finalized at location A. IMPRESSION: Redemonstration of cavitary mass within the right apex, unchanged from prior. Traction bronchiectasis and increased opacification of the bilateral lung bases , as detailed above.
--- OUTSIDE RECORDS SUMMARY | 2024-12-25 16:43 | XMS_ITS | Clinical Summary ---
Author Organization [facility] cole Banerjeemichele Address [address] [place] [address] Care Team Providers Care Marble Ceiling Installer Name Role Phone Unavailable Primary Care Provider [...] on file Legal Sex Male 1:17 PM SLASHER HAND Gender Identity Not on file Sexual Orientation Not on file Last Filed Vital Signs Vital Sign Reading Time Taken Comments Blood Pressure 117/63 09/19/2021 11:05 AM SLASHER HAND Pulse 75 09/19/2021 11:05 AM SLASHER HAND Temperature 36.6 C (97.9 F) 09/19/2021 11:05 AM SLASHER HAND Respiratory Rate - - Oxygen Saturation 91% 09/19/2021 11: 05 AM SLASHER HAND Inhaled Oxygen Concentration - - Weight 79.7 kg (175 lb 11.2 oz) 021 11:05 AM SLASHER HAND Height 182.9 cm (6') 09/19/2021 11:05 AM SLASHER HAND Body Mass Index 23.83 09/19/2021 11:05 AM SLASHER HAND Plan of Treatment Health Maintenance Due Date Last Done Comments DTAP/TDAP/TD VACCINES (1 - Tdap) 1967 PNEUMOCOCCAL VACCINE 50+ YEARS (1 of 2 - PCV) 07/26/19 67 ZOSTER VACCINE (1 of 2) 1998 RSV VACCINE (60+ or ) (1 - 1-dose 75+ series) 2023 INFLUENZA VACCINE (#1) 2024 Insurance MEDICARE PART A [place] [address]
--- OUTSIDE RECORDS SUMMARY | 2024-12-25 16:43 | XMS_ITS | Clinical Summary ---
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
--- OUTSIDE RECORDS SUMMARY | 2024-12-25 16:43 | XMS_ITS | Continuity of Care Document ---
Author Name [facility] Organization [facility] Care Team Providers Care Silver Steward Name Role Phone [facility] Unavailable Unavailable Problems Combined list of problems from Department of Defense and [facility] Affairs facilities. It does not include entries that were removed or entered in error. 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 [facility] Folliculitis Active 1 Condition [facility] Malignant neoplasm of skin Active 1 Condition [facility] Melanoma of Skin Active 1 Condition [facility] Anxiety Disorder NOS Active 2 Condition [facility] Anxiety Disorder * (ICD-9-CM 300.00) Active Condition [facility] Anxiety Disorder NOS Active Condition [facility] Basal cell carcinoma of skin Active Condition [facility] Depression * (ICD-9-CM 300.4/311.) Active Condition [facility] Depression * (ICD-9-CM 311./300.4) Active Condition [facility] Dysthymic Disorder (ICD-9-CM 300.4) Active Condition [facility] Elevated PSA Active Condition [facility] Head and Neck Cancer, Unknown Site Active Condition Dec 21, 2008 Entered By: TIANNA LEBLANC Comment: has received radiation post neck surgeryDec 21, 2008 Entered By: TIANNA LEBLANC Comment: salivary glands goneDec 21, 2009 Entered By: TIANNA LEBLANC Comment: SCC, necklymph nodes, left nipple,2001Dec 21, 2009 Entered By: [facility]IAN[facility]ANC [facility] Entered By: TIANNA LEBLANC Comment: records scanned [facility] Hyperkalemia * (ICD-9-CM 276.7) Active Condition [facility] Impacted Cerumen Active Condition [facility] Thong [facility] Internal hemorrhoids without mention of complication (ICD-9-CM 455.0) Active Condition [facility] Low Back Pain Active Condition [facility] Major Depressive Disorder, Recurrent Active Condition [facility] Major Depressive Disorder, Recurrent, Severe, without Psychotic Features (ICD-9- Active Condition [facility] Melanoma of Skin Active Condition Dec 21, 2008 Entered By: TIANNA LEBLANC Comment: Dr Day, several removed [facility] Memory loss Active Condition [facility] Mood Disorder NOS Active Condition [facility] Nicotine Dependence Active Condition Dec 21, 2009 Entered By: TIANNA LEBLANC Comment: declines treatment [facility] PANIC D/O W/0 AGORA Active Condition [facility] Personal History of Colonic Polyps Active Condition Nov 08, 2010 Entered By: ROMAINE ROBELS Comment: Due for repeat colonoscopy 08/2011 - 09/2011May 2011 Entered By: ANNMARIE GUARDADO Comment: repeat colonoscopy due in 08/2012 [facility] Prostate cancer Active Condition [facility] Sensory neuropathy Active Condition [facility] Tobacco use Active Condition [facility] Tobacco Use * (ICD-9-CM 305.1) Active Condition [facility] Vitamin D deficiency (SNOMED CT 92243713) Active Condition [facility] Medications Combined list of outpatient medications [...] DAY ORAL ACTIVE CAR 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 Immunization Series Date Given Administered By Site Reaction Lot Number CVX Code Drug Garment Patternmaker Status Comments Source COVID-19 (MODERNA), MRNA, LNP-S, PF, 100 MCG/0.5 ML DOSE 2 2020 207 complet ed MOD; [id number]; 1 [facility] COVID-19 (MODERNA), MRNA, LNP-S, PF, 100 MCG/0.5 ML DOSE 1 2020 207 complet ed MOD; [id number]; 1 [facility] TDAP 2012 115 complet ed Left Deltoid [facility] Social History Combined list of available smoking, tobacco, and other social history from Department of Defense and Veterans Affairs facilities. 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 06/22/2019 [facility] History of tobacco use VA-TOBACCO USER EVERY DAY 02/24/2018 [facility] History of tobacco use TOBACCO USER OFFERED MEDS 11/27/2017 [facility] History of tobacco use QUIT TOBACCO >7 YEARS AGO 11/30/2014 [facility] History of tobacco use CURRENT TOBACCO USER 01/04/2014 [facility] History of tobacco use CURRENT TOBACCO USER 01/20/2013 [facility] History of tobacco use CURRENT TOBACCO USER 06/25/2012 [facility] History of tobacco use CURRENT TOBACCO USER 07/19/2011 [facility] Alonzo Hernandez [facility] History of tobacco use CURRENT TOBACCO USER 07/17/2010 [facility] History of tobacco use CURRENT TOBACCO USER 12/20/2009 [facility] History of tobacco use CURRENT TOBACCO USER 12/21/2008 [facility] History of tobacco use CURRENT TOBACCO USER 10/28/2006 [facility] History of tobacco use PT REFUSED SMOKING CESSATION CLASSES 02/04/2004 [facility] History of tobacco use CURRENT TOBACCO USER 07/03/2001 [facility]
--- NOTE | 2024-12-25 17:01 | ED_ITS ---
HPI - General Adult General Chief complaint: Fever <Stephan Urbina MD - Last Filed: 12/25/24 21:54> Stated complaint: Fever, chills, no appetite. Had CT scan yesterday <Stephan Urbina MD - Last Filed: 12/25/24 21:54> Time Seen by Provider: 12/25/24 16:53 <Stephan Urbina MD - Last Filed: 12/25/24 21:54> History of Present Illness HPI narrative: Patient is a 74-year-old male who presents to the ER with fever. Began this evening. Took Tylenol before arrival. Associated with shortness of breath and cough. Wears 1 L of oxygen as needed. Currently requiring 6 L of oxygen. Has exertional dyspnea. Was admitted to the hospital in transfer to [facility] in October of 2024 for a cavitary mass in the right upper lung. He was treated with antibiotics and had a follow-up CT scan yesterday that shows expanding mass that could be neoplasm or abscess. It is expanding into the mediastinum. <Stephan Urbina MD - Last Filed: 12/25/24 21:54> Related Data Allergies/adverse reactions: Allergies Allergy/AdvReac Type Severity Reaction Status Date / Time No Known Allergies Allergy Verified 12/25/24 16:42 <Stephan Urbina MD - Last Filed: 12/25/24 21:54> Review of Systems 2 Review of Systems: All systems reviewed & are unremarkable except as noted in HPI and below <Stephan Urbina MD - Last Filed: 12/25/24 21:54> Constitutional: Constitutional: Reports no additional constitutional complaints <Stephan Urbina MD - Last Filed: 12/25/24 21:54> ENT: Reports system reviewed and no additional complaints, except as documented <Stephan Urbina MD - Last Filed: 12/25/24 21:54> Cardiovascular: Cardiovascular: Reports no additional cardiovascular complaints <Stephan Urbina MD - Last Filed: 12/25/24 21:54> Respiratory: Respiratory: Reports no additional respiratory complaints < Stephan Urbina MD - Last Filed: 12/25/24 21:54> Gastrointestinal: Gastrointestinal: Reports no additional gastrointestinal complaints <Stephan Urbina MD - Last Filed: 12/25/24 21:54> [facility] Past Medical History Medical History: Medical History Nicotine addiction Lung mass Respiratory failure Hx of malignant neoplasm of prostate GERD without esophagitis Hyperlipidemia Skin cancer Asthma History of fracture of left hip COPD (chronic obstructive pulmonary disease) Tobacco use disorder, severe, dependence 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 Prostate cancer Recently discovered on biopsy. Apparently low-grade and is being followed by surveillance. Melanoma Melanoma x2 excised from the chest. Anxiety Depression Arthritis Back fracture T12 fracture in 1992. <Stephan Urbina MD - Last Filed: 12/25/24 21:54> Surgical History Surgical History: Surgical History Status post-operative repair of closed fracture of left hip Status post surgical removal of malignant neoplasm of skin Including melanoma from the chest and basal cell carcinoma from the cheek and arms. History of back surgery Hx of appendectomy <Stephan Urbina MD - Last Filed: 12/25/24 21:54> Family History Family History: Family History Mother Congestive heart failure <Stephan Urbina MD - Last Filed: 12/25/24 21:54> Social History Social History: Social History Social History: The patient is to his 3rd and lives in [place]. He has 13 children, youngest is 3. He is retired, worked for the [employer]. He designates his , Nicole, as his surrogate decision maker and he wishes to be a full code. Smoking packs per day: 1 Smoking cigarettes per day: 20.0 Years smoked: 55 Smoking pack-years: 55.00 Smoking status: Former smoker Tobacco type: cigarettes Alcohol intake: never Substance use: never Substance use type: does not use Lack of Transportation: No Lack of Food: Never True Current Housing: I Have Housing Concerned About Future Housing: No Difficulty Paying Gas/Electric Bills: No Difficulty Paying for Meds: No Currently Unemployed: No Education: Bachelor's Degree Difficulty w/ Childcare or Family Care: No Living arrangements: with family Additional living arrangements comments: Occupation/Education: retired Gender identity (if verbalized by the patient): Male Sexual Orientation (if Verbalized by the Patient): Straight or Heterosexual Spiritual care concerns: No Agree to blood products: Yes <Stephan Urbina MD - Last Filed: 12/25/24 21:54> Exam 2 Narrative: GENERAL: Chronically ill-appearing, well-nourished, and in no acute distress. HEAD: Normocephalic, atraumatic. ENT: Mucous membranes moist. NECK: Supple. CHEST: Diffuse rales and wheezing with mild respiratory distress. Speaks in full sentences. HEART: Regular rate and rhythm. Normal peripheral pulses. ABDOMEN: Soft, nontender, nondistended. EXTREMITIES: Normal range of motion. No edema. SKIN: Warm, dry, no rash. NEURO: Alert and oriented x3. PSYCH: Normal mood and affect. <Stephan Urbina MD - Last Filed: 12/25/24 21:54> Course Course Emergency Course: 2000: Elevated white blood cell count with a normal lactic acid. 10% band neutrophils. Patient started on cefepime/azithromycin/vancomycin given imaging study that shows possible lung abscess versus neoplasm. More likely abscess given fever, there is basilar pneumonia as well. Fran Francois contacted for transfer as discharge summary from previous visit showed robotic bronchoscopy her likely be needed given location should the area not results. We do not have this capability here. 0: [facility] still working on contacting a physician for transfer. 2199: BEV to Dr. Carrillo. <Stephan Urbina MD - Last Filed: 12/25/24 21:54> 2000: Elevated white blood cell count with a normal lactic acid. 10% band neutrophils. Patient started on cefepime/azithromycin/vancomycin given imaging study that shows possible lung abscess versus neoplasm. More likely abscess given fever, there is basilar pneumonia as well. Fran Francois contacted for transfer as discharge summary from previous visit showed robotic bronchoscopy her likely be needed given location should the area not results. We do not have this capability here. 0: [facility] still working on contacting a physician for transfer. 2199: BEV to Dr. Carrillo. Gerardo: Dr Urbina told me about this patient. [facility] at 23:55. [facility] step down. Pending bed. Called to inquire bed status at 6am and again at approximatey 08:00. Still pending. Confirmed IV antibiotics x3 are ordered. Told RN clear liquids ok given it does not seem patient will be getting a bed this morning. Patient signed out to oncoming ED physician at approximately 08:00 on 12/26/24. <Tamara Carrillo MD - Last Filed: 12/26/24 17:11> Vital Signs Vital signs: Vital Signs Temperature 98.8 F 12/25/24 16:51 Pulse Rate 98 12/25/24 16:51 Blood Pressure 102/66 12/25/24 16:51 Pulse Oximetry 93 12/25/24 16:51 Oxygen Delivery Nasal Cannula 12/25/24 16:51 Oxygen Flow Rate 6 12/25/24 16:51 Temperature 98.3 F 12/26/24 07:54 Pulse Rate 80 12/26/24 12:51 Respiratory Rate 20 12/26/24 12:51 Blood Pressure 108/67 12/26/24 12:51 Pulse Oximetry 95 12/26/24 12:51 Oxygen Delivery High Flow Nasal Cannula 12/25/24 19:52 Oxygen Flow Rate 7 12/25/24 19:52 <Stephan Urbina MD - Last Filed: 12/25/24 21:54> Vital Signs Temperature 98.8 F 12/25/24 16:51 Pulse Rate 98 12/25/24 16:51 Blood Pressure 102/66 12/25/24 16:51 Pulse Oximetry 93 12/25/24 16:51 Oxygen Delivery Nasal Cannula 12/25/24 16:51 Oxygen Flow Rate 6 12/25/24 16:51 Temperature 98.3 F 12/26/24 07:54 Pulse Rate 80 12/26/24 12:51 Respiratory Rate 20 12/26/24 12:51 Blood Pressure 108/67 12/26/24 12:51 Pulse Oximetry 95 12/26/24 12:51 Oxygen Delivery High Flow Nasal Cannula 12/25/24 19:52 Oxygen Flow Rate 7 12/25/24 19:52 <Tamara Carrillo MD - Last Filed: 12/26/24 17:11> Medical Decision Making Vital Signs Vital Signs: Vital Signs Temperature 98.8 F 12/25/24 16:51 Pulse Rate 98 12/25/24 16:51 Blood Pressure 102/66 12/25/24 16:51 Pulse Oximetry 93 12/25/24 16:51 Oxygen Delivery Nasal Cannula 12/25/24 16:51 Oxygen Flow Rate 6 12/25/24 16:51 Temperature 98.3 F 12/26/24 07:54 Pulse Rate 80 12/26/24 12:51 Respiratory Rate 20 12/26/24 12:51 Blood Pressure 108/67 12/26/24 12:51 Pulse Oximetry 95 12/26/24 12:51 Oxygen Delivery High Flow Nasal Cannula 12/25/24 19:52 Oxygen Flow Rate 7 12/25/24 19:52 <Stephan Urbina MD - Last Filed: 12/25/24 21:54> Vital Signs Temperature 98.8 F 12/25/24 16:51 Pulse Rate 98 12/25/24 16:51 Blood Pressure 102/66 12/25/24 16:51 Pulse Oximetry 93 12/25/24 16:51 Oxygen Delivery Nasal Cannula 12/25/24 16:51 Oxygen Flow Rate 6 12/25/24 16:51 Temperature 98.3 F 12/26/24 07:54 Pulse Rate 80 12/26/24 12:51 Respiratory Rate 20 12/26/24 12:51 Blood Pressure 108/67 12/26/24 12:51 Pulse Oximetry 95 12/26/24 12:51 Oxygen Delivery High Flow Nasal Cannula 12/25/24 19:52 Oxygen Flow Rate 7 12/25/24 19:52 <Tamara Carrillo MD - Last Filed: 12/26/24 17:11> Lab Data Result diagrams: 12/25/24 17:13 12/26/24 05:03 <Stephan Urbina MD - Last Filed: 12/25/24 21:54> Labs: Lab Results 12/25/24 12/25/24 12/25/24 Range/Units 17:13 17:14 17:20 WBC 15.8 H (4.5-10.0) K/mm3 RBC 4.52 L (4.6-6.20) M/mm3 Hgb 12.7 L (14.0-18.0) g/dL Hct 41.0 L (42.0-52.0) % MCV 90.7 (80-100) fl MCH 28.1 (26-34) pg MCHC 31.0 L (32-36) g/dl RDW 15.0 H (11.5-14.5) % Plt Count 321 (150-375) k/mm3 MPV 9.6 (7.4-10.4) fl Immature Gran % (Auto) Not Reportable Neut % (Auto) Not Reportable Lymph % (Auto) Not Reportable [place] % (Auto) Not Reportable Eos % (Auto) Not Reportable Baso % (Auto) Not Reportable Lymph # (Auto) Not Reportable [place] # (Auto) Not Reportable Eos # (Auto) Not Reportable Baso # (Auto) Not Reportable Abs Immat Gran (auto) Not Reportable Absolute Neuts (auto) Not Reportable Absolute Nucleated RBC Not Reportable Total Counted 100 Neutrophils % (Manual) 77 H (46-73) % Band Neutrophils % 10 H (0-6) % Lymphocytes % (Manual) 4 L (18-44) % Monocytes % (Manual) 9 (3-9) % Eosinophils % (Manual) 0 (0-4) % Basophils % (Manual) 0 (0-1) % Nucleated RBC % Not Reportable Abs Neuts (Manual) 13.74 H (1.3-6.7) K/mm3 Abs Lymphs (Manual) 0.63 L (1.1-4.5) K/mm3 Abs Monocytes (Manual) 1.42 H (0.1-0.90) K/mm3 Absolute Eos (Manual) 0.00 L (0.02-0.50) K/mm3 Abs Basophils (Manual) 0.00 (0.0-0.1) K/mm3 Platelet Estimate Adequate (Adequate) Hypochromasia 1+ Anisocytosis 1+ Schistocytes None seen Methemoglobin (0-1.5) %THb Sodium 136 L (137-145) mmol/L Potassium 4.3 (3.4-5.0) mmol/L Chloride 95 L (98-107) mmol/L Carbon Dioxide 30 (22-30) mmol/L Anion Gap 11 (4-12) mmol/L BUN 29 H (9-20) mg/dL Creatinine 1.09 (0.7-1.3) mg/dL Estim Creat Clear Calc 55 ml/min Estimated GFR > 60 (59 - ) Glucose 134 H (65-110) mg/dL Lactic Acid 1.1 (0.7-2.0) mmol/L Calcium 8.8 (8.4-10.2) mg/dL Total Bilirubin 1.4 H (0.2-1.3) mg/dL AST 26 (17-59) U/L ALT 23 (6-50) U/L Alkaline Phosphatase 148 H (38-126) U/L Total Protein 8.0 (6.3-8.2) g/dL Albumin 4.5 (3.5-5.1) g/dL Nasal MRSA (PCR) (NOT DETECTE) Influenza A (RT-PCR) Negative (Negative) Influenza B (RT-PCR) Negative (Negative) RSV (RT-PCR) Negative (Negative) SARS-CoV-2 RNA (RT-PCR) Negative (Negative) 12/25/24 12/25/24 12/26/24 Range/Units 18:17 21:06 05:03 WBC (4.5-10.0) K/mm3 RBC (4.6-6.20) M/mm3 Hgb (14.0-18.0) g/dL Hct (42.0-52.0) % MCV (80-100) fl MCH (26-34) pg MCHC (32-36) g/dl RDW (11.5-14.5) % Plt Count (150-375) k/mm3 MPV (7.4-10.4) fl Immature Gran % (Auto) Neut % (Auto) Lymph % (Auto) [place] % (Auto) Eos % (Auto) Baso % (Auto) Lymph # (Auto) [place] # (Auto) Eos # (Auto) Baso # (Auto) Abs Immat Gran (auto) Absolute Neuts (auto) Absolute Nucleated RBC Total Counted Neutrophils % (Manual) (46-73) % Band Neutrophils % (0-6) % Lymphocytes % (Manual) (18-44) % Monocytes % (Manual) (3-9) % Eosinophils % (Manual) (0-4) % Basophils % (Manual) (0-1) % Nucleated RBC % Abs Neuts (Manual) (1.3-6.7) K/mm3 Abs Lymphs (Manual) (1.1-4.5) K/mm3 Abs Monocytes (Manual) (0.1-0.90) K/mm3 Absolute Eos (Manual) (0.02-0.50) K/mm3 Abs Basophils (Manual) (0.0-0.1) K/mm3 Platelet Estimate (Adequate) Hypochromasia Anisocytosis Schistocytes Methemoglobin 0.2 (0-1.5) %THb Sodium (137-145) mmol/L Potassium (3.4-5.0) mmol/L Chloride (98-107) mmol/L Carbon Dioxide (22-30) mmol/L Anion Gap (4-12) mmol/L BUN (9-20) mg/dL Creatinine 0.78 (0.7-1.3) mg/dL Estim Creat Clear Calc 75 ml/min Estimated GFR > 60 (59 - ) Glucose (65-110) mg/dL Lactic Acid (0.7-2.0) mmol/L Calcium (8.4-10.2) mg/dL Total Bilirubin (0.2-1.3) mg/dL AST (17-59) U/L ALT (6-50) U/L Alkaline Phosphatase (38-126) U/L Total Protein (6.3-8.2) g/dL Albumin (3.5-5.1) g/dL Nasal MRSA (PCR) Not detected (NOT DETECTE) Influenza A (RT-PCR) (Negative) Influenza B (RT-PCR) (Negative) RSV (RT-PCR) (Negative) SARS-CoV-2 RNA (RT-PCR) (Negative) <Stephan Urbina MD - Last Filed: 12/25/24 21:54> Lab Results 12/25/24 12/25/24 12/25/24 Range/Units 17:13 17:14 17:20 WBC 15.8 H (4.5-10.0) K/mm3 RBC 4.52 L (4.6-6.20) M/mm3 Hgb 12.7 L (14.0-18.0) g/dL Hct 41.0 L (42.0-52.0) % MCV 90.7 (80-100) fl MCH 28.1 (26-34) pg MCHC 31.0 L (32-36) g/dl RDW 15.0 H (11.5-14.5) % Plt Count 321 (150-375) k/mm3 MPV 9.6 (7.4-10.4) fl Immature Gran % (Auto) Not Reportable Neut % (Auto) Not Reportable Lymph % (Auto) Not Reportable [place] % (Auto) Not Reportable Eos % (Auto) Not Reportable Baso % (Auto) Not Reportable Lymph # (Auto) Not Reportable [place] # (Auto) Not Reportable Eos # (Auto) Not Reportable Baso # (Auto) Not Reportable Abs Immat Gran (auto) Not Reportable Absolute Neuts (auto) Not Reportable Absolute Nucleated RBC Not Reportable Total Counted 100 Neutrophils % (Manual) 77 H (46-73) % Band Neutrophils % 10 H (0-6) % Lymphocytes % (Manual) 4 L (18-44) % Monocytes % (Manual) 9 (3-9) % Eosinophils % (Manual) 0 (0-4) % Basophils % (Manual) 0 (0-1) % Nucleated RBC % Not Reportable Abs Neuts (Manual) 13.74 H (1.3-6.7) K/mm3 Abs Lymphs (Manual) 0.63 L (1.1-4.5) K/mm3 Abs Monocytes (Manual) 1.42 H (0.1-0.90) K/mm3 Absolute Eos (Manual) 0.00 L (0.02-0.50) K/mm3 Abs Basophils (Manual) 0.00 (0.0-0.1) K/mm3 Platelet Estimate Adequate (Adequate) Hypochromasia 1+ Anisocytosis 1+ Schistocytes None seen Methemoglobin (0-1.5) %THb Sodium 136 L (137-145) mmol/L Potassium 4.3 (3.4-5.0) mmol/L Chloride 95 L (98-107) mmol/L Carbon Dioxide 30 (22-30) mmol/L Anion Gap 11 (4-12) mmol/L BUN 29 H (9-20) mg/dL Creatinine 1.09 (0.7-1.3) mg/dL Estim Creat Clear Calc 55 ml/min Estimated GFR > 60 (59 - ) Glucose 134 H (65-110) mg/dL Lactic Acid 1.1 (0.7-2.0) mmol/L Calcium 8.8 (8.4-10.2) mg/dL Total Bilirubin 1.4 H (0.2-1.3) mg/dL AST 26 (17-59) U/L ALT 23 (6-50) U/L Alkaline Phosphatase 148 H (38-126) U/L Total Protein 8.0 (6.3-8.2) g/dL Albumin 4.5 (3.5-5.1) g/dL Nasal MRSA (PCR) (NOT DETECTE) Influenza A (RT-PCR) Negative (Negative) Influenza B (RT-PCR) Negative (Negative) RSV (RT-PCR) Negative (Negative) SARS-CoV-2 RNA (RT-PCR) Negative (Negative) 12/25/24 12/25/24 12/26/24 Range/Units 18:17 21:06 05:03 WBC (4.5-10.0) K/mm3 RBC (4.6-6.20) M/mm3 Hgb (14.0-18.0) g/dL Hct (42.0-52.0) % MCV (80-100) fl MCH (26-34) pg MCHC (32-36) g/dl RDW (11.5-14.5) % Plt Count (150-375) k/mm3 MPV (7.4-10.4) fl Immature Gran % (Auto) Neut % (Auto) Lymph % (Auto) [place] % (Auto) Eos % (Auto) Baso % (Auto) Lymph # (Auto) [place] # (Auto) Eos # (Auto) Baso # (Auto) Abs Immat Gran (auto) Absolute Neuts (auto) Absolute Nucleated RBC Total Counted Neutrophils % (Manual) (46-73) % Band Neutrophils % (0-6) % Lymphocytes % (Manual) (18-44) % Monocytes % (Manual) (3-9) % Eosinophils % (Manual) (0-4) % Basophils % (Manual) (0-1) % Nucleated RBC % Abs Neuts (Manual) (1.3-6.7) K/mm3 Abs Lymphs (Manual) (1.1-4.5) K/mm3 Abs Monocytes (Manual) (0.1-0.90) K/mm3 Absolute Eos (Manual) (0.02-0.50) K/mm3 Abs Basophils (Manual) (0.0-0.1) K/mm3 Platelet Estimate (Adequate) Hypochromasia Anisocytosis Schistocytes Methemoglobin 0.2 (0-1.5) %THb Sodium (137-145) mmol/L Potassium (3.4-5.0) mmol/L Chloride (98-107) mmol/L Carbon Dioxide (22-30) mmol/L Anion Gap (4-12) mmol/L BUN (9-20) mg/dL Creatinine 0.78 (0.7-1.3) mg/dL Estim Creat Clear Calc 75 ml/min Estimated GFR > 60 (59 - ) Glucose (65-110) mg/dL Lactic Acid (0.7-2.0) mmol/L Calcium (8.4-10.2) mg/dL Total Bilirubin (0.2-1.3) mg/dL AST (17-59) U/L ALT (6-50) U/L Alkaline Phosphatase (38-126) U/L Total Protein (6.3-8.2) g/dL Albumin (3.5-5.1) g/dL Nasal MRSA (PCR) Not detected (NOT DETECTE) Influenza A (RT-PCR) (Negative) Influenza B (RT-PCR) (Negative) RSV (RT-PCR) (Negative) SARS-CoV-2 RNA (RT-PCR) (Negative) <Tamara Carrillo MD - Last Filed: 12/26/24 17:11> ABG Data ABG results: 12/25/24 21:06 Puncture Site Right radial ABG pH 7.393 ABG pCO2 40.4 ABG pO2 71.7 L ABG PO2/FiO2 Ratio 1.49 ABG HCO3 24.1 ABG O2 Saturation 94.4 L ABG O2 Content 15.2 L ABG Base Excess -0.8 A-a Gradient 224.9 Oxyhemoglobin 93.0 Carboxyhemoglobin 1.1 Reduced Hemoglobin 5.7 H Total Hemoglobin 11.6 L O2 Delivery Device High flow nasal donya O2 Liters/Min 7.0 FiO2 48 <Stephan Urbina MD - Last Filed: 12/25/24 21:54> 12/25/24 21:06 Puncture Site Right radial ABG pH 7.393 ABG pCO2 40.4 ABG pO2 71.7 L ABG PO2/FiO2 Ratio 1.49 ABG HCO3 24.1 ABG O2 Saturation 94.4 L ABG O2 Content 15.2 L ABG Base Excess -0.8 A-a Gradient 224.9 Oxyhemoglobin 93.0 Carboxyhemoglobin 1.1 Reduced Hemoglobin 5.7 H Total Hemoglobin 11.6 L O2 Delivery Device High flow nasal donya O2 Liters/Min 7.0 FiO2 48 <Tamara Carrillo MD - Last Filed: 12/26/24 17:11> Imaging Data Radiologist's impression: ITS Impressions Chest X-Ray 12/25/24 18:49 IMPRESSION: Redemonstration of cavitary mass within the right apex, unchanged from prior. Traction bronchiectasis and increased opacification of the bilateral lung bases, as detailed above. CT Scan of the Chest with Contrast: Technique: Contiguous sections were acquired throughout the chest after intravenous administration of 75 cc of Omnipaque 350. Dose reduction technique was used on this scan by utilizing automated exposure control and iterative reconstruction technique. The dose-length product (DLP) was 204.78 mGy-cm. COMPARISON: 10/31/2024 Findings: 4.4 x 4.0 cm irregular hypodense masslike lesion is present at the medial right lung apex, probably extending to the right superior mediastinum, increased in extent from prior exam. There is no filling defect in the pulmonary arterial tree to suggest pulmonary embolus. There is no evidence of aortic dissection or aneurysm. There is no evidence of pleural or pericardial effusion. Moderate to advanced emphysema present. There are patchy areas of consolidation and groundglass opacity, as well as tree-in-bud opacities, extensively involving the lower lobes, with additional mild involvement in the right middle lobe. Images through the upper abdomen reveal small gallstones. Stable fatty lesion at the pancreatic tail. Bilateral renal cysts are noted. Questional subtle 1 cm hypodense left hepatic lobe lesion. Stable T12 compression fracture. Impression: 4.4 x 4.0 cm irregular hypodense masslike lesion in the medial right lung apex extending to the superior mediastinum. This is mildly increased from prior exam. Neoplasm is suspected. Abscess is a potential alternative consideration. Tissue sampling advised if not already performed. Patchy bibasilar predominant consolidation and groundglass opacity with tree-in-bud opacities, as detailed above. These findings are compatible with infectious/inflammatory process. Moderate to advanced emphysema. Reviewed, dictated and finalized at location M. <Stephan Urbina MD - Last Filed: 12/25/24 21:54> ECG Data EKG #1: ECG completion date: 12/25/24 <Stephan Urbina MD - Last Filed: 12/25/24 21:54> ECG completion time: 17:31 <Stephan Urbina MD - Last Filed: 12/25/24 21:54> EKG Interpretation: normal rate (86), sinus rhythm, non-specific ST changes, normal QRS, normal QT and NL axis <Stephan Urbina MD - Last Filed: 12/25/24 21:54> Discharge Plan Discharge Clinical Impression: Cavitating mass of lung, Respiratory failure, Pneumonia <Stephan Urbina MD - Last Filed: 12/25/24 21:54> Patient Disposition: Acute Care Hospital <Stephan Urbina MD - Last Filed: 12/25/24 21:54> Condition: Serious <Stephan Urbina MD - Last Filed: 12/25/24 21:54> Patient Language: Tuvaluan <Stephan Urbina MD - Last Filed: 12/25/24 21:54> Prescriptions: No Action diclofenac sodium [Voltaren Arthritis Pain] 1 % gel 4 g topical TID PRN (Reason: pain, moderate) Qty: 100 0RF Rx Instructions: apply to area of pain three times daily as needed Trelegy Ellipta 100-62.5-25 mcg blister with device 1 inh inhalation DAILY Qty: 28 5RF nicotine 21 mg/24 hr patch 24 hour 1 patch transdermal DAILY Qty: 7 0RF cyclobenzaprine 5 mg tablet 5 mg PO TID PRN (Reason: muscle pain) Qty: 60 0RF omeprazole 20 mg capsule,delayed release(DR/EC) 20 mg PO BID Qty: 180 1RF Rx Instructions: Take one in the AM with breakfast and one in the PM with dinner phenelzine 15 mg tablet 15 mg PO TID Qty: 270 1RF lorazepam 2 mg tablet 2 mg PO BID PRN (Reason: Anxiety) Qty: 60 2RF <Stephan Urbina MD - Last Filed: 12/25/24 21:54> Follow-up/Referrals: Pal Matthews MD [Primary Care Provider] - <Stephan Urbina MD - Last Filed: 12/25/24 21:54>
--- NOTE | 2024-12-25 17:10 | ECG_ITS ---
Test Date: 2024-12-25 17:31:28 Measurements Intervals Cameron Rate: 86 P: 37 NH: 144 QRS: 5 QRSD: 115 T: 24 QT: 363 QTc: 436 Interpretive Statements SINUS RHYTHM INCOMPLETE RIGHT BUNDLE BRANCH BLOCK MINIMAL Q WAVES- LAT/HIGH LAT LEADS BASELINE WANDER- I, III BORDERLINE ECG Compared to ECG 10/31/2024 09:09:53 NO SIGNIFICANT CHANGE Electronically Signed On 12-25-2024 20:18:07 CDT by Walt Millard D.O.
[2024-12-25 17:19] LABS: Hemoglobin 12.7 g/dL (14.0-18.0); Mean Corpuscular Hemoglobin 28.1 pg (26-34); Mean Corpuscular Volume 90.7 fl (80-100); Mean Platelet Volume 9.6 fl (7.4-10.4); Platelet Count Result 321 k/mm3 (150-375); Red Blood Count 4.52 M/mm3 (4.6-6.20); White Blood Count 15.8 K/mm3 (4.5-10.0)
--- OUTSIDE RECORDS SUMMARY | 2024-12-25 17:19 | XMS_ITS | Continuity of Care Document ---
Author Name [facility] Organization [facility] Care Team Providers Care Small Arms Artillery Repairer Name Role Phone [facility] Unavailable Unavailable Problems Combined list of problems from Department of Defense and [facility] Affairs facilities. It does not include entries that were removed or entered in error. 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 [facility] Folliculitis Active 1 Condition [facility] Malignant neoplasm of skin Active 1 Condition [facility] Melanoma of Skin Active 1 Condition [facility] Anxiety Disorder NOS Active 2 Condition [facility] Anxiety Disorder * (ICD-9-CM 300.00) Active Condition [facility] Anxiety Disorder NOS Active Condition [facility] Basal cell carcinoma of skin Active Condition [facility] Depression * (ICD-9-CM 300.4/311.) Active Condition [facility] Depression * (ICD-9-CM 311./300.4) Active Condition [facility] Dysthymic Disorder (ICD-9-CM 300.4) Active Condition [facility] Elevated PSA Active Condition [facility] Head and Neck Cancer, Unknown Site Active Condition Dec 21, 2008 Entered By: TIANNA LEBLANC Comment: has received radiation post neck surgeryDec 21, 2008 Entered By: TIANNA LEBLANC Comment: salivary glands goneDec 21, 2009 Entered By: TIANNA LEBLANC Comment: SCC, necklymph nodes, left nipple,2001Dec 21, 2009 Entered By: [facility]IANNA [facility]ANC [facility] Entered By: TIANNA LEBLANC Comment: records scanned [facility] Hyperkalemia * (ICD-9-CM 276.7) Active Condition [facility] Impacted Cerumen Active Condition [facility] Thong [facility] Internal hemorrhoids without mention of complication (ICD-9-CM 455.0) Active Condition [facility] Low Back Pain Active Condition [facility] Major Depressive Disorder, Recurrent Active Condition [facility] Major Depressive Disorder, Recurrent, Severe, without Psychotic Features (ICD-9- Active Condition [facility] Melanoma of Skin Active Condition Dec 21, 2008 Entered By: TIANNA LEBLANC Comment: Dr Day, several removed [facility] Memory loss Active Condition [facility] Mood Disorder NOS Active Condition [facility] Nicotine Dependence Active Condition Dec 21, 2009 Entered By: TIANNA LEBLANC Comment: declines treatment [facility] PANIC D/O W/0 AGORA Active Condition [facility] Personal History of Colonic Polyps Active Condition Nov 08, 2010 Entered By: ROMAINE ROBLES Comment: Due for repeat colonoscopy 08/2011 - 09/2011May 2011 Entered By: ANNMARIE GUARDADO Comment: repeat colonoscopy due in 08/2012 [facility] Prostate cancer Active Condition [facility] Sensory neuropathy Active Condition [facility] Tobacco use Active Condition [facility] Tobacco Use * (ICD-9-CM 305.1) Active Condition [facility] Vitamin D deficiency (SNOMED CT [id number]) Active Condition [facility] Medications Combined list of outpatient medications from [...] DAY ORAL ACTIVE CAR FIGUEREDO MD 2018 [facility] Immunizations Combined list of available immunizations from the Department of [facility] and Veterans Affairs facilities. Immunization Series Date Given Administered By Site Reaction Lot Number CVX Code Drug Fly Finisher Status Comments Source COVID-19 (MODERNA), MRNA, LNP-S, PF, 100 MCG/0.5 ML DOSE 2 2020 207 complet ed MOD; [id number]; [facility] COVID-19 (MODERNA), MRNA, LNP-S, PF, 100 MCG/0.5 ML DOSE 1 2020 207 complet ed MOD; [id number]; 1 [facility] TDAP 2012 115 complet ed Left Deltoid [facility] Social History Combined list of available smoking, tobacco, and other social history from Department of Defense and Veterans Affairs facilities. 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 YES 06/22/2019 [facility] History of tobacco use VA-TOBACCO USER EVERY DAY 02/24/2018 [facility] History of tobacco use TOBACCO USER OFFERED MEDS 11/27/2017 [facility] History of tobacco use QUIT TOBACCO >7 YEARS AGO 11/30/2014 [facility] History of tobacco use CURRENT TOBACCO USER 01/04/2014 [facility] History of tobacco use CURRENT TOBACCO USER 01/20/2013 [facility] History of tobacco use CURRENT TOBACCO USER 06/25/2012 [facility] History of tobacco use CURRENT TOBACCO USER 07/19/2011 [facility] Alonzo Hernandez [facility] History of tobacco use CURRENT TOBACCO USER 07/17/2010 [facility] History of tobacco use CURRENT TOBACCO USER 12/20/2009 [facility] History of tobacco use CURRENT TOBACCO USER 12/21/2008 [facility] History of tobacco use CURRENT TOBACCO USER 10/28/2006 [facility] History of tobacco use PT REFUSED SMOKING CESSATION CLASSES 02/04/2004 [facility] History of tobacco use CURRENT TOBACCO USER 07/03/2001 [facility]
--- OUTSIDE RECORDS SUMMARY | 2024-12-25 17:19 | XMS_ITS | Clinical Summary ---
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 Gender Identity Not on file Sexual Orientation Not on file Last Filed Vital Signs Vital Sign Reading Time Taken Comments Blood Pressure 117/63 09/19/2021 11:05 AM RELIABILITY TECHNICIAN Pulse 75 09/19/2021 11:05 AM RELIABILITY TECHNICIAN Temperature 36.6 C (97.9 F) 09/19/2021 11:05 AM RELIABILITY TECHNICIAN Respiratory Rate - - Oxygen Saturation 91% 09/19/2021 11: 05 AM RELIABILITY TECHNICIAN Inhaled Oxygen Concentration - - Weight 79.7 kg (175 lb 11.2 oz) 021 11:05 AM RELIABILITY TECHNICIAN Height 182.9 cm (6') 09/19/2021 11:05 AM RELIABILITY TECHNICIAN Body Mass Index 23.83 09/19/2021 11:05 AM RELIABILITY TECHNICIAN Plan of Treatment Health Maintenance Due Date Last Done Comments DTAP/TDAP/TD VACCINES (1 - Tdap) 1969 PNEUMOCOCCAL VACCINE 50+ YEARS (1 of 2 - PCV) 07/26/19 67 ZOSTER VACCINE (1 of 2) 1998 RSV VACCINE (60+ or ) (1 - 1-dose 75+ series) 2023 INFLUENZA VACCINE (#1) 2024 Insurance MEDICARE PART A AND [place] [address]
--- OUTSIDE RECORDS SUMMARY | 2024-12-25 17:19 | XMS_ITS | Clinical Summary ---
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
[2024-12-25 17:28] LABS: Alanine Aminotransferase 23 U/L (6-50); Albumin Level 4.5 g/dL (3.5-5.1); Alkaline Phosphatase 148 U/L (38-126); Anion Gap 11 mmol/L (4-12); Aspartate Amino Transferase 26 U/L (17-59); Bilirubin,Total 1.4 mg/dL (0.2-1.3); Blood Urea Nitrogen 29 mg/dL (9-20); Calcium 8.8 mg/dL (8.4-10.2); Carbon Dioxide 30 mmol/L (22-30); Chloride 95 mmol/L (98-107); Estimated CRCL calculation 55 ml/min; Estimated Glomerular Filt Rate > 60; Glucose 134 mg/dL (65-110); Potassium 4.3 mmol/L (3.4-5.0); Sodium 136 mmol/L (137-145)
[2024-12-25 17:29] LABS: Band Neutrophils Percent 10 % (0-6); Basophils Percent Manual 0 % (0-1); Eosinophils Percent Manual 0 % (0-4); Lymphocytes Absolute Manual 0.63 K/mm3 (1.1-4.5); Lymphocytes Percent Manual 4 % (18-44); Monocytes Absolute Manual 1.42 K/mm3 (0.1-0.90); Monocytes Percent Manual 9 % (3-9); Neutrophils Absolute Manual 13.74 K/mm3 (1.3-6.7); Neutrophils Percent Manual 77 % (46-73); Total Cells Counted 100
[2024-12-25 17:30] LABS: Platelet Estimate Adequate (Adequate)
[2024-12-25 17:31] LABS: Anisocytosis 1+; Hypochromasia 1+
[2024-12-25 17:32] LABS: Schistocytes None Seen
[2024-12-25] MEDS: IPRATROPIUM BR 0.02% INH SOLN 0.5 MG/2.5 ML VIAL 1 MG INHALATION (17:33)
[2024-12-25] MEDS: ALBUTEROL SULFATE NEB 2.5 MG/3 ML INH 10 MG INHALATION (17:33)
[2024-12-25 17:39] LABS: Lactic Acid Reflex 1.1 mmol/L (0.7-2.0)
[2024-12-25 17:54] LABS: Influenza A QL RT-PCR Negative (Negative); Influenza B QL RT-PCR Negative (Negative); RSV RNA, RT-PCR Negative (Negative); SARS-CoV-2 RNA PCR Negative (Negative)
[2024-12-25] MEDS: CEFEPIME 2 GM/NS 50 ML 2 GM/50 ML BAG IVPB (18:02)
[2024-12-25] MEDS: AZITHROMYCIN 500 MG/NS 250 ML 500 MG/250 ML BAG 250 MG IVPB (18:06)
[2024-12-25] MEDS: VANCOMYCIN 2,000 MG/NS 500 ML 2,000 MG/500 ML BAG 250 MG IVPB (19:13)
[2024-12-25] MEDS: SODIUM CHLORIDE 0.9% IV 1,000 ML 999 ML IV CONT (19:24)
[2024-12-25 19:31] LABS: MRSA (PCR) NOT DETECTED (NOT DETECTE)
[2024-12-25 21:17] LABS: Alveolar/Arterial O2 Gradient 224.9 mmHg; Base Excess ABG -0.8 mEq/l (+/-2.0); Carboxyhemoglobin 1.1 % THb (0-2.0); Fractional Inspired Oxygen 48 %; HCO3 ABG 24.1 mEq/l (22.0-26.0); Methemoglobin ABG 0.2 %THb (0-1.5); Oxygen Content ABG 15.2 %vol (16.0-22.0); Oxygen Saturation ABG 94.4 % (95.0-100.0); PCO2 ABG 40.4 mmHg (35.0-45.0); PO2 ABG 71.7 mmHg (80.0-100.0); PO2 FiO2 Ratio Arterial Blood 1.49 %; Reduced Hemoglobin 5.7 %THb (0-5.0); Total Hemoglobin 11.6 g/dL (12.0-18.0); pH ABG 7.393 (7.350-7.450)
[2024-12-25 21:19] LABS: Device HIGH FLOW NASAL CANN; Modified Allen's Test Pass; Site Drawn RIGHT RADIAL
[2024-12-26] VITALS (23 sets, daily range): BP systolic 81–113; BP diastolic 40–78; PULSE 80–86; RESP 15–35; TEMP 36.4–36.8; O2SAT 93–97
--- NOTE | 2024-12-26 00:13 | PC.NURSE ---
Per [facility] transfer center the patient has been accepted at [facility], but is on the waitlist for step down.
[2024-12-26 05:17] LABS: Estimated CRCL calculation 75 ml/min; Estimated Glomerular Filt Rate > 60
[2024-12-26] MEDS: CEFEPIME 2 GM/NS 50 ML 2 GM/50 ML BAG IVPB (06:04)
--- NOTE | 2024-12-26 07:54 | PC.NURSE ---
SPOKE TO TRANSFER CENTER NO BEDS AT THIS TIME
--- NOTE | 2024-12-26 07:55 | PC.NURSE ---
Called [facility] transfer center to get an update on bed situation, if one is available yet. Nurse asked to speak with charge to get status update on patient. Alphonse gave update.
== END 2024-12-26 13:59 | disposition short-term general hospital (02) ==
PROVIDERS: Emergency Medicine; Emergency Provider Student in an Organized Health Care Education/Training Program; PCP Family Medicine
DX: J96.90 Respiratory failure, unspecified, unspecified whether with hypoxia or hypercapnia (principal); J18.9 Pneumonia, unspecified organism; R91.8 Other nonspecific abnormal finding of lung field; J43.9 Emphysema, unspecified; E78.5 Hyperlipidemia, unspecified; K21.9 Gastro-esophageal reflux disease without esophagitis; M19.90 Unspecified osteoarthritis, unspecified site; F41.9 Anxiety disorder, unspecified; F32.A Depression, unspecified; Z85.46 Personal history of malignant neoplasm of prostate; Z85.828 Personal history of other malignant neoplasm of skin; Z85.820 Personal history of malignant melanoma of skin; Z92.21 Personal history of antineoplastic chemotherapy; Z92.3 Personal history of irradiation; Z87.891 Personal history of nicotine dependence; Z79.899 Other long term (current) drug therapy
CPT/HCPCS: 36415; 36600; 71046; 80053; 82375; 82565; 82805; 83050; 83605; 85018; 85025; 87040; 87637; 87641; 93005; 96365; 96366; 96367; 96368; 99285; J0456; J0692; J3370; J7030

== ENCOUNTER 2025-01-22 10:25 | Outpatient (CLI) | payer OTHER, SELFPAY ==
--- NOTE | ~2025-01-22 | PE_ITS ---
EXAMINATION: PET skull to mid thigh DATE: 01/22/2025 13:02 INDICATION: Malignant neoplasm of unspecified part of right bronchus or lung TECHNIQUE: Blood glucose level was 90 mg/dL. 10.624 mCi of 18-fluorodeoxyglucose (18-FDG) was adminis tered i.v. Low dose computed tomography (CT) images were acquired from the base of the brain to the p roximal thighs for attenuation correction and anatomic localization. Positron emission tomography (PE T) images were acquired in the same distribution beginning 50 minutes after injection. Images includi ng fused PET/CT images were reconstructed in axial, coronal, and sagittal planes. Automated exposure control technique was employed. The dose-length product was 804.80mGy-cm. COMPARISON: None FINDINGS: Head/neck: There is symmetric increased activity in the oral cavity, palatine tonsils, laryngeal muscles and ocu lar muscles without CT correlate, likely physiologic. No pathologically enlarged cervical lymphadenop athy or suspicious foci of increased FDG uptake in the visualized head or neck. There is asymmetric l oss of subcutaneous fat on the left side of the neck along with an atrophic versus absent left sterno cleidomastoid muscle and left internal jugular vein. Correlate with clinical/surgical history. Chest: Moderate emphysema. 4.7 cm diameter FDG avid right apical paramediastinal mass with maximal SUV of 14 .1 and central hypodense and photopenic necrosis. The mass invades the mediastinum abutting the right posterior wall of the trachea and eroding into the right lateral mata of the T2 and T3 vertebral arlene dies. 11 x 7 mm satellite nodule at the right apex with maximal SUV of 5.0. Bibasilar atelectasis. Ca lcified left lower lobe nodule along with calcified bilateral hilar lymph nodes consistent with old g ranulomatous disease. 11 x 8 mm FDG avid likely metastatic right paratracheal lymph node with maximal SUV of 8.8. Heart size is normal. No pericardial effusion. Thoracic aorta is normal in caliber. Abdomen/pelvis/proximal thighs: Physiologic renal accumulation and excretion of FDG activity in the kidneys, bladder and along portio ns of ureters. Status post prostatectomy. There are bilateral photopenic renal cysts the largest on t he right measuring 5.0 cm. Multiple surgical clips in the pelvis. Multiple hepatic and splenic calcif ications consistent with old granulomatous disease. Normal degree and heterogenous pattern of increas ed uptake throughout the liver without radiologic correlate or dominant FDG avid lesion. Multiple gal lstones within the normal gallbladder. The pancreas, spleen and bilateral adrenal glands are normal. Mild uptake scattered throughout the bowels without radiologic correlate, also likely physiologic. No other abnormal foci of increased FDG uptake or pathologically enlarged lymphadenopathy in the abdome n, pelvis or proximal thighs. Small fat-containing left inguinal hernia. Musculoskeletal: Thoracolumbar posterior spinal fusion extending from T9 through L3 with bilateral vertical shira with l aminar hooks, wires and pedicle screws fixation spanning a chronic T12 burst fracture. Moderate spond ylosis from the cervical through the lumbar spine. Aside from the previous noted local invasion of th e T2 and T3 vertebral bodies. There are no other suspicious lytic, blastic or FDG avid bone lesions t o suggest osseous metastatic disease. IMPRESSION: 1. Moderate emphysema with 4.7 cm centrally necrotic FDG avid right apical mass concerning for lung c ancer with invasion of the immediately adjacent to the sternum and T2 and T3 vertebral bodies. 2. 11 mm echogenic satellite nodule in the right upper lobe and left millimeter FDG avid right paratr acheal lymph node consistent with local metastatic disease. 3. Cholelithiasis. Reviewed, dictated and finalized at location A. IMPRESSION: 1. Moderate emphysema with 4.7 cm centrally necrotic FDG avid right apical mass concerning for lung cancer with invasion of the immediately adjacent to the st ernum and T2 and T3 vertebral bodies. 2. 11 mm echogenic satellite nodule in the right upper lobe and left millimeter FDG avid right paratracheal lymph node consistent with local metastatic diseas e. 3. Cholelithiasis.
[2025-01-22 11:05] LABS: Glucose Point of Care 90 mg/dl (65-105)
--- OUTSIDE RECORDS SUMMARY | 2025-01-23 11:51 | XMS_ITS | Clinical Summary ---
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
--- OUTSIDE RECORDS SUMMARY | 2025-01-23 11:51 | XMS_ITS | Clinical Summary ---
[facility] Address [address] [address] Care Team Providers Care Program Aide Group Work Name Role Phone Unavailable Primary Care Provider Unavailabl e Allergies No known active allergies Medications LORazepam (ATIVAN) 2 mg tablet 1 Active phenelzine (NardiL) 15 mg tablet Take 15 mg by mouth 3 times daily. Active Trelegy Ellipta 100-62.5-25 mcg Disk with Device Take 1 Puff by inhalation daily. 5 Active HYDROcodone-fabian taminophen (NORCO) 5-325 mg tabletIndicatio ns:Malignant neoplasm of upper lobe of right lung (CMS/HCC) Take 1 Tablet by mouth every 4 hours as needed for Pain, Moderate. Max Daily Amount: 6 Tablets 180 Tablet 5 Active naloxone (NARCAN) 4 mg/spray Homer, Non-Aerosol EMERGENCY USE ONLY: Administer 1 spray (4 mg) in one nostril one time. May repeat in alternating nostrils every 2-3 min until responsive or EMS arrives. 2 Each 3 5 Active Active Problems No known active problems Encounters Date Type Department Care Team Description 01/19/2025 External Device Data 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, Abstract 01/19/2025 External Device Data 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, Abstract 01/19/2025 External Device Data 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, Abstract 01/13/2025 11:00 AM CDT Office Visit [facility] - [place] [address] [place] [address] Luna Birmingham MD Malignant neoplasm of upper lobe of right lung (CMS/HCC) (Primary Dx) from Last 3 Months Family History Medical History Relation Name Comments No Known Problems Brother 1 No Known Problems Brother 2 No Known Problems Daughter 1 No Known Problems Daughter 2 No Known Problems Daughter 3 No Known Problems Daughter 4 No Known Problems Daughter 5 No Known Problems Daughter 6 No Known Problems Father No Known Problems Mother No Known Problems Sister No Known Problems Son 1 No Known Problems Son 2 No Known Problems Son 3 No Known Problems Son 4 No Known Problems Son 5 No Known Problems Son 6 No Known Problems Son 7 Relation Name Status Comments Brother 1 Alive Brother 2 Alive Daughter 1 Alive Daughter 2 Alive Daughter 3 Alive Daughter 4 Alive Daughter 5 Alive Daughter 6 Alive Father Mother Alive Sister Alive Son 1 Alive Son 2 Alive Son 3 Alive Son 4 Alive Son 5 Alive Son 6 Alive Son 7 Alive Social History Tobacco Use Types Packs/Day Years Used Date Smoking Tobacco: Never Smokeless Tobacco: Never Alcohol Use Standard Drinks/Week Comments Never 0 (1 standard drink = 0.6 oz pur e alcohol) Sex and Gender Information Value Date Recorded Sex Assigned at Not on file 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 Gender Identity Not on file Sexual Orientation Not on file Last Filed Vital Signs Vital Sign Reading Time Taken Comments Blood Pressure 117/76 01/13/2025 10:51 AM CDT Pulse 76 01/13/2025 10:51 AM CDT Temperature 36.1 C (97 F) 01/13/2025 10:51 AM CDT Respiratory Rate 15 01/13/2025 10:51 AM CDT Oxygen Saturation 90% 01/13/2025 10:51 AM CDT Inhaled Oxygen Concentration - - Weight 73.8 kg (162 lb 9.6 oz) 01/13/2025 10:51 AM CDT Height 182.9 cm (6') 01/13/2025 10:51 AM CDT Body Mass Index 22.05 01/13/2025 10:51 AM CDT Plan of Treatment Upcoming Encounters Date Type Department Care Team (Late st Contact Info) Description 02/01/2025 1:00 PM CDT Office Visit [facility] - [place] [address] [place] [address] Nba Ponce MD [address] [place] [address] Health Maintenance Due Date Last Done Comments PNEUMOCOCCAL VACCINE 50+ YEA RS (1 of 2 - PCV) 1967 ZOSTER VACCINE (1 of 2) 1998 DTAP/TDAP/TD VACCINES (2 - Td or Tdap) 01/20/2023 RSV VACCINE (60+ or ) (1 - 1-dose 75+ series) 2023 INFLUENZA VACCINE (#1) 2024 COVID-19 Vaccine (3 - 2023- season) 05/24/202411/2020, 11/27/2020 Insurance GENERIC MEDICARE MANAGED CARE
--- OUTSIDE RECORDS SUMMARY | 2025-01-23 11:51 | XMS_ITS | Continuity of Care Document ---
Author Name [facility] Organization [facility] Care Team Providers Care Cigarette Seller Name Role Phone [facility] Unavailable Unavailable Problems Combined list of problems from Department of Defense and [facility] Affairs facilities. It does not include entries that were removed or entered in error. 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 [facility] Folliculitis Active 1 Condition [facility] Malignant neoplasm of skin Active 1 Condition [facility] Melanoma of Skin Active 1 Condition [facility] Anxiety Disorder NOS Active 2 Condition [facility] Anxiety Disorder * (ICD-9-CM 300.00) Active Condition [facility] Anxiety Disorder NOS Active Condition [facility] Basal cell carcinoma of skin Active Condition [facility] Depression * (ICD-9-CM 300.4/311.) Active Condition [facility] Depression * (ICD-9-CM 311./300.4) Active Condition [facility] Dysthymic Disorder (ICD-9-CM 300.4) Active Condition [facility] Elevated PSA Active Condition [facility] Head and Neck Cancer, Unknown Site Active Condition Dec 21, 2008 Entered By: TIANNA LEBLANC Comment: has received radiation post neck surgeryDec 21, 2008 Entered By: TIANNA LEBLANC Comment: salivary glands goneDec 21, 2009 Entered By: TIANNA LEBLANC Comment: SCC, necklymph nodes, left nipple,2001Dec 21, 2009 Entered By: TIANNA [facility]ANC [facility] Entered By: TIANNA LEBLANC Comment: records scanned [facility] Hyperkalemia * (ICD-9-CM 276.7) Active Condition [facility] Impacted Cerumen Active Condition [facility] Thong [facility] Internal hemorrhoids without mention of complication (ICD-9-CM 455.0) Active Condition [facility] Low Back Pain Active Condition [facility] Major Depressive Disorder, Recurrent Active Condition [facility] Major Depressive Disorder, Recurrent, Severe, without Psychotic Features (ICD-9- Active Condition [facility] Melanoma of Skin Active Condition Dec 21, 2008 Entered By: TIANNA LEBLANC Comment: Dr Day, several removed [facility] Memory loss Active Condition [facility] Mood Disorder NOS Active Condition [facility] Nicotine Dependence Active Condition Dec 21, 2009 Entered By: TIANNA LEBLANC Comment: declines treatment [facility] PANIC D/O W/0 AGORA Active Condition [facility] Personal History of Colonic Polyps Active Condition Nov 08, 2010 Entered By: ROMAINE ROBLES Comment: Due for repeat colonoscopy 08/2011 - 09/2011May 2011 Entered By: ANNMARIE GUARDADO Comment: repeat colonoscopy due in 08/2012 [facility] Prostate cancer Active Condition [facility] Sensory neuropathy Active Condition [facility] Tobacco use Active Condition [facility] Tobacco Use * (ICD-9-CM 305.1) Active Condition [facility] Vitamin D deficiency (SNOMED CT 36778063) Active Condition [facility] Medications Combined list of outpatient medications [...] DAY ORAL ACTIVE CAR FIGUEREDO MD 2018 [facility] Immunizations Combined list of available immunizations from the Department of [facility] and Veterans Affairs facilities. Immunization Series Date Given Administered By Site Reaction Lot Number CVX Code Drug Last Code Striper Status Comments Source COVID-19 (MODERNA), MRNA, LNP-S, PF, 100 MCG/0.5 ML DOSE 2 2020 207 complet ed MOD; [id number]; 1 [facility] COVID-19 (MODERNA), MRNA, LNP-S, PF, 100 MCG/0.5 ML DOSE 1 2020 207 complet ed MOD; [id number]; 1 [facility] TDAP 2012 115 complet ed Left Deltoid [facility] Procedures Combined list of: 1) Procedures from Department of Veterans Affairs facilities going [facility], not all VA non-surgical procedures are included; 2) All procedures from the Department of Defense facilities. Procedure Procedure Type Code Date Perfomer Comments Sourc e COLLECTION OF VENOUS BLOOD B Y VENIPUNCTURE 11/22/2005 [facility] COLLECTION OF VENOUS BLOOD B Y VENIPUNCTURE 05/16/2005 [facility] Social History Combined list of available smoking, tobacco, and other social history from Department of Defense and Veterans Affairs facilities. 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 YES 06/22/2019 [facility] History of tobacco use VA-TOBACCO USE WI 30 MIN OF WAKEUP 02/24/2018 [facility] History of tobacco use TOBACCO USER OFFERED MEDS 11/27/2017 [facility] History of tobacco use QUIT TOBACCO >7 YEARS AGO 11/30/2014 [facility] History of tobacco use CURRENT TOBACCO USER 01/04/2014 [facility] History of tobacco use CURRENT TOBACCO USER 01/20/2013 [facility] History of tobacco use CURRENT TOBACCO USER 06/25/2012 [facility] History of tobacco use CURRENT TOBACCO USER 07/19/2011 [facility] History of tobacco use CURRENT TOBACCO USER 07/17/2010 [facility] History of tobacco use CURRENT TOBACCO USER 12/20/2009 [facility] History of tobacco use CURRENT TOBACCO USER 12/21/2008 [facility] History of tobacco use CURRENT TOBACCO USER 10/28/2006 [facility] History of tobacco use PT REFUSED SMOKING CESSATION CLASSES 02/04/2004 [facility] History of tobacco use CURRENT TOBACCO USER 07/03/2001 [facility] This section is an empty social history section. DoD
== END 2025-01-22 10:26 | disposition home or self-care (01) ==
PROVIDERS: PCP Family Medicine; Visit Provider Radiology Radiation Oncology
DX: C34.91 Malignant neoplasm of unspecified part of right bronchus or lung (principal)
CPT/HCPCS: 78815; A9552

== ENCOUNTER 2025-01-25 06:44 | Outpatient (CLI) | payer OTHER, SELFPAY ==
--- NOTE | ~2025-01-25 | MR_ITS ---
MRI of the brain Clinical History: Malignancy, lung cancer Technique: Axial and sagittal T1-weighted images were acquired. These were followed by axial T2-weigh chapincito, diffusion weighted, gradient, and FLAIR images. Following intravenous administration of 15 cc Pr oHance gadolinium, T1-weighted fat-sat imaging was performed in the axial and coronal planes. Findings: No significant signal abnormality seen in the brain parenchyma. No acute infarct, intracran ial hemorrhage, or intracranial mass lesion. There is a fat attenuation nonenhancing mass along the l eft temporal scalp posterior to left ear, compatible with lipoma. Ventricles and subarachnoid spaces are unremarkable. Orbits are unremarkable. Paranasal sinuses and m astoid air cells are clear. Major intracranial flow voids are intact. Sagittal midline structures are intact. No abnormal postcontrast enhancement identified. IMPRESSION: No significant intracranial abnormality. 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 Reviewed, dictated and finalized at location .
--- OUTSIDE RECORDS SUMMARY | 2025-01-25 06:49 | XMS_ITS | Clinical Summary ---
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
--- OUTSIDE RECORDS SUMMARY | 2025-01-25 06:49 | XMS_ITS | Clinical Summary ---
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
--- OUTSIDE RECORDS SUMMARY | 2025-01-25 06:49 | XMS_ITS | Continuity of Care Document ---
Author Name [facility] Organization [facility] Care Team Providers Care Surg Rn Name Role Phone [facility] Unavailable Unavailable Problems Combined list of problems from Department of Defense and [facility] Affairs facilities. It does not include entries that were removed or entered in error. 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 [facility] Folliculitis Active 1 Condition [facility] Malignant neoplasm of skin Active 1 Condition [facility] Melanoma of Skin Active 1 Condition [facility] Anxiety Disorder NOS Active 2 Condition [facility] Anxiety Disorder * (ICD-9-CM 300.00) Active Condition [facility] Anxiety Disorder NOS Active Condition [facility] Basal cell carcinoma of skin Active Condition [facility] Depression * (ICD-9-CM 300.4/311.) Active Condition [facility] Depression * (ICD-9-CM 311./300.4) Active Condition [facility] Dysthymic Disorder (ICD-9-CM 300.4) Active Condition [facility] Elevated PSA Active Condition [facility] Head and Neck Cancer, Unknown Site Active Condition Dec 21, 2008 Entered By: TIANNA LEBLANC Comment: has received radiation post neck surgeryDec 21, 2008 Entered By: TIANNA LEBLANC Comment: salivary glands goneDec 21, 2009 Entered By: TIANNA LEBLANC Comment: SCC, necklymph nodes, left nipple,2001Dec 21, 2009 Entered By: [facility]ANC [facility] Entered By: TIANNA LEBLANC Comment: records scanned [facility] Hyperkalemia * (ICD-9-CM 276.7) Active Condition [facility] Impacted Cerumen Active Condition [facility] Thong [facility] Internal hemorrhoids without mention of complication (ICD-9-CM 455.0) Active Condition [facility] Low Back Pain Active Condition [facility] Major Depressive Disorder, Recurrent Active Condition [facility] Major Depressive Disorder, Recurrent, Severe, without Psychotic Features (ICD-9- Active Condition [facility] Melanoma of Skin Active Condition Dec 21, 2008 Entered By: TIANNA LEBLANC Comment: Dr Day, several removed [facility] Memory loss Active Condition [facility] Mood Disorder NOS Active Condition [facility] Nicotine Dependence Active Condition Dec 21, 2009 Entered By: TIANNA LEBLANC Comment: declines treatment [facility] PANIC D/O W/0 AGORA Active Condition [facility] Personal History of Colonic Polyps Active Condition Nov 08, 2010 Entered By: ROMAINE ROBLES Comment: Due for repeat colonoscopy 08/2011 - 09/2011May 2011 Entered By: ANNMARIE GUARDADO Comment: repeat colonoscopy due in 08/2012 [facility] Prostate cancer Active Condition [facility] Sensory neuropathy Active Condition [facility] Tobacco use Active Condition [facility] Tobacco Use * (ICD-9-CM 305.1) Active Condition [facility] Vitamin D deficiency (SNOMED CT 67975471) Active Condition [facility] Medications Combined list of outpatient medications from [...] DAY ORAL ACTIVE CAR FIGUEREDO MD 2018 [facility] Immunizations Combined list of available immunizations from the Department of [facility] and Veterans Affairs facilities. Immunization Series Date Given Administered By Site Reaction Lot Number CVX Code Drug Mutuel Clerk Status Comments Source COVID-19 (MODERNA), MRNA, LNP-S, PF, 100 MCG/0.5 ML DOSE 2 2020 207 complet ed MOD; [id number]; 1 [facility] COVID-19 (MODERNA), MRNA, LNP-S, PF, 100 MCG/0.5 ML DOSE 1 2020 207 complet ed MOD; [id number]; 1 [facility] TDAP 2012 115 complet ed Left Deltoid [facility] Procedures Combined list of: 1) Procedures from Department of Veterans Affairs facilities [facility], not all VA non-surgical procedures are included; 2) All procedures from the Department of Defense facilities. Procedure Procedure Type Code Date Perfomer Comments Sourc e COLLECTION OF VENOUS BLOOD B Y VENIPUNCTURE 11/22/2005 [facility] COLLECTION OF VENOUS BLOOD B Y VENIPUNCTURE 05/16/2005 [facility] Social History Combined list of available smoking, tobacco, and other social history from Department of Defense and Veterans Affairs facilities. 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 History of tobacco use CURRENT TOBACCO USER 07/17/2010 [facility] History of tobacco use CURRENT TOBACCO USER 12/20/2009 [facility] History of tobacco use CURRENT TOBACCO USER 12/21/2008 [facility] History of tobacco use CURRENT TOBACCO USER 10/28/2006 [facility] History of tobacco use PT REFUSED SMOKING CESSATION CLASSES 02/04/2004 [facility] History of tobacco use CURRENT TOBACCO USER 07/03/2001 [facility] This section is an empty social history section. DoD
== END 2025-01-25 06:45 | disposition home or self-care (01) ==
PROVIDERS: PCP Family Medicine; Visit Provider Radiology Radiation Oncology
DX: C34.91 Malignant neoplasm of unspecified part of right bronchus or lung (principal); D17.0 Benign lipomatous neoplasm of skin and subcutaneous tissue of head, face and neck
CPT/HCPCS: 70553; A9579

== ENCOUNTER 2025-01-31 08:21 | Emergency (ER) | payer MEDICARE, SELFPAY ==
--- NOTE | ~2025-01-31 | XR_ITS ---
XR_[id number]_CR 01/31/2025 08:57 Indication: Status post fall 3 days ago Procedure: 4 view cervical spine Comparison: No prior studies for comparison. Findings: There is osteopenia. Vertebral body heights are maintained. There is severe cervical spondy losis characterized by disc narrowing, multilevel uncinate and facet hypertrophy. C7 not well visuali zed on the lateral view. No prevertebral soft tissue swelling. Odontoid process is normal. Lateral ma sses normally aligned. Lung apices are normal. Impression: 1: No acute fracture. Limited visualization of C7. 2: Severe cervical spondylosis. Reviewed, dictated and finalized at location A. Impression: 1: No acute fracture. Limited visualization of C7. 2: Severe cervical spondylosis.
--- OUTSIDE RECORDS SUMMARY | 2025-01-31 08:23 | XMS_ITS | Clinical Summary ---
Author Organization [facility] Address [address] [place] [address] Care Team Providers Care Prosthetic Dentist Name Role Phone Unavailable Primary Care Provider Unavailabl e Allergies No known active allergies Medications LORazepam (ATIVAN) 2 mg tablet 1 Active phenelzine (NardiL) 15 mg tablet Take 15 mg by mouth 3 times daily. Active Trelegy Ellipta 100-62.5-25 mcg Disk with Device Take 1 Puff by inhalation daily. 5 Active naloxone (NARCAN) 4 mg/spray [place], Non-Aerosol EMERGENCY USE ONLY: Administer 1 spray (4 mg) in one nostril one time. May repeat in alternating nostrils every 2-3 min until responsive or EMS arrives. 2 Each 3 5 Active HYDROcodone-ac etaminophen (NORCO) 10-325 mg TabletIndicati ons:Malignant neoplasm of upper lobe of right lung (CMS/HCC) Take 1 Tablet by mouth every 4 hours as needed for Pain, Moderate. Max Daily Amount: 6 Tablets 60 Tablet 5 Active HYDROcodone-ac etaminophen (NORCO) 5-325 mg tabletIndicati ons:Malignant neoplasm of upper lobe of right lung (CMS/HCC) Take 1 Tablet by mouth every 4 hours as needed for Pain, Moderate. Max Daily Amount: 6 Tablets 180 Tablet 5 025 Discontinu ed(Alterna te therapy prescribed ) Active Problems No known active problems Encounters Date Type Department Care Team Description 01/26/2025 10:00 AM CDT Office Visit [facility] - [place] [address] [place] [address] Nba Ponce MD Malignant neoplasm of upper lobe of right lung (CMS/HCC) (Primary Dx) 01/19/2025 External Device Data 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, Abstract 01/19/2025 External Device Data 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, Abstract 01/19/2025 External Device Data 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, Abstract 01/13/2025 11:00 AM CDT Office Visit [facility] [address] [address] Luna Birmingham MD Malignant neoplasm of upper [...] Date Smoking Tobacco: Never Smokeless Tobacco: Never Tobacco Cessation:Counseling Given: Not Answered Alcohol Use Standard Drinks/Week Comments Never 0 (1 standard drink = 0.6 oz pur e alcohol) Sex and Gender Information Value Date Recorded Sex Assigned at Not on file 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 Gender Identity Not on file Sexual Orientation Not on file Last Filed Vital Signs Vital Sign Reading Time Taken Comments Blood Pressure 116/52 01/26/2025 10:02 AM CDT Pulse 72 01/26/2025 10:02 AM CDT Temperature 36.7 C (98.1 F) 01/26/2025 10:02 AM CDT Respiratory Rate 15 01/26/2025 10:0 2 AM CDT Oxygen Saturation 88% 01/26/2025 10: 02 AM CDT Patient uses O2 Inhaled Oxygen Concentration - - Weight 74 kg (163 lb 3.2 oz) 01/26/2025 10:02 AM CDT Height 182.9 cm (6') 01/13/2025 10:51 AM CDT Body Mass Index 22.13 01/13/2025 10:51 AM CDT Plan of Treatment Health Maintenance Due Date Last Done Comments PNEUMOCOCCAL VACCINE 50+ YEA RS (1 of 2 - PCV) 1967 ZOSTER VACCINE (1 of 2) 1998 DTAP/TDAP/TD VACCINES (2 - Td or Tdap) 01/20/2023 RSV VACCINE (60+ or ) (1 - 1-dose 75+ series) 2023 INFLUENZA VACCINE (#1) 2024 COVID-19 Vaccine ( - season) 05/24/202411/2020, 11/27/2020 Procedures Procedure Name Priority Date/Time Associated Diagnosis Comments [facility] NORMAL BLO[facility] Routine 01/26/2025 10:59 AM CDT Malignant neoplasm of upper lobe of right lung (CMS/HCC) from Last 3 Months Results * [facility] NORMAL BLOOD (01/26/2025 10:59 AM CDT) [facility] 01/26/2025 11:01 PM CDT [facility] Comment:See NGS Report for R esults. Blood specimen (specimen) 01/26/2025 10:59 AM CDT 01/26/2025 11:00 AM CDT Nba Ponce MD MOLECULAR ORDERABLES Final Resu lt [facility] [address] [place] [address], [facility] [address] [place] [address] from Last 3 Months Insurance GENERIC MEDICARE MANAGED CARE
--- OUTSIDE RECORDS SUMMARY | 2025-01-31 08:23 | XMS_ITS | Clinical Summary ---
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
--- OUTSIDE RECORDS SUMMARY | 2025-01-31 08:23 | XMS_ITS | Continuity of Care Document ---
Author Name [facility] Organization [facility] Care Team Providers Care Courtroom Reporter Name Role Phone [facility] Unavailable Unavailable Problems Combined list of problems from Department of Defense and [facility] Affairs facilities. It does not include entries that were removed or entered in error. 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 [facility] Folliculitis Active 1 Condition [facility] Malignant neoplasm of skin Active 1 Condition [facility] Melanoma of Skin Active 1 Condition [facility] Anxiety Disorder NOS Active 2 Condition [facility] Anxiety Disorder * (ICD-9-CM 300.00) Active Condition [facility] Anxiety Disorder NOS Active Condition [facility] Basal cell carcinoma of skin Active Condition [facility] Depression * (ICD-9-CM 300.4/311.) Active Condition [facility] Depression * (ICD-9-CM 311./300.4) Active Condition [facility] Dysthymic Disorder (ICD-9-CM 300.4) Active Condition [facility] Elevated PSA Active Condition [facility] Head and Neck Cancer, Unknown Site Active Condition Dec 21, 2008 Entered By: TIANNA LEBLANC Comment: has received radiation post neck surgeryDec 21, 2008 Entered By: TIANNA LEBLANC Comment: salivary glands goneDec 21, 2009 Entered By: TIANNA LEBLANC Comment: SCC, necklymph nodes, left nipple,2001Dec 21, 2009 Entered By: [facility]ANC [facility] Entered By: TIANNA LEBLANC Comment: records scanned [facility] Hyperkalemia * (ICD-9-CM 276.7) Active Condition [facility] Impacted Cerumen Active Condition [facility] Thong [facility] Internal hemorrhoids without mention of complication (ICD-9-CM 455.0) Active Condition [facility] Low Back Pain Active Condition [facility] Major Depressive Disorder, Recurrent Active Condition [facility] Major Depressive Disorder, Recurrent, Severe, without Psychotic Features (ICD-9- Active Condition [facility] Melanoma of Skin Active Condition Dec 21, 2008 Entered By: TIANNA LEBLANC Comment: Dr Day, several removed [facility] Memory loss Active Condition [facility] Mood Disorder NOS Active Condition [facility] Nicotine Dependence Active Condition Dec 21, 2009 Entered By: TIANNA LEBLANC Comment: declines treatment [facility] PANIC D/O W/0 AGORA Active Condition [facility] Personal History of Colonic Polyps Active Condition Nov 08, 2010 Entered By: ROMAINE ROBLES Comment: Due for repeat colonoscopy 08/2011 - 09/2011May 2011 Entered By: ANNMARIE GUARDADO Comment: repeat colonoscopy due in 08/2012 [facility] Prostate cancer Active Condition [facility] Sensory neuropathy Active Condition [facility] Tobacco use Active Condition [facility] Tobacco Use * (ICD-9-CM 305.1) Active Condition [facility] Vitamin D deficiency (SNOMED CT 55921699) Active Condition [facility] Medications Combined list of outpatient medications from [...] immunizations from the Department of [facility] and Veterans Affairs facilities. Immunization Series Date Given Administered By Site Reaction Lot Number CVX Code Drug Manager Star Status Comments Source COVID-19 (MODERNA), MRNA, LNP-S, PF, 100 MCG/0.5 ML DOSE 2 2020 207 complet ed MOD; [id number]; 1 [facility] COVID-19 (MODERNA), MRNA, LNP-S, PF, 100 MCG/0.5 ML DOSE 1 2020 207 complet ed MOD; [id number]; 1 [facility] TDAP 2012 115 complet ed Left Deltoid [facility] Procedures Combined list of: 1) Procedures from Department of Veterans Affairs facilities [facility], not all VA non-surgical procedures are included; 2) All procedures from the Department of Defense facilities. Procedure Procedure Type Code Date Perfomer Comments Sourc e COLLECTION OF VENOUS BLOOD B Y VENIPUNCTURE 11/22/2005 [facility] COLLECTION OF VENOUS BLOOD B Y VENIPUNCTURE 05/16/2005 [facility] Social History Combined list of available smoking, tobacco, and other social history from Department of Defense and Veterans Affairs facilities. 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 History of tobacco use CURRENT TOBACCO USER 07/17/2010 [facility] History of tobacco use CURRENT TOBACCO USER 12/20/[address] [facility] History of tobacco use CURRENT TOBACCO USER 12/21/[address] [facility] [facility] History of tobacco use CURRENT TOBACCO USER 10/28/2006 [facility] History of tobacco use PT REFUSED SMOKING CESSATION CLASSES 02/04/2004 [facility] History of tobacco use CURRENT TOBACCO USER 07/03/2001 [facility] This section is an empty social history section. DoD
--- OUTSIDE RECORDS SUMMARY | 2025-01-31 08:26 | XMS_ITS | Continuity of Care Document ---
Author Name [facility] Organization [facility] Care Team Providers Care Road Supervisor Name Role Phone [facility] Unavailable Unavailable Problems Combined list of problems from Department of Defense and [facility] Affairs facilities. It does not include entries that were removed or entered in error. 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 [facility] Folliculitis Active 1 Condition [facility] Malignant neoplasm of skin Active 1 Condition [facility] Melanoma of Skin Active 1 Condition [facility] Anxiety Disorder NOS Active 2 Condition [facility] Anxiety Disorder * (ICD-9-CM 300.00) Active Condition [facility] Anxiety Disorder NOS Active Condition [facility] Basal cell carcinoma of skin Active Condition [facility] Depression * (ICD-9-CM 300.4/311.) Active Condition [facility] Depression * (ICD-9-CM 311./300.4) Active Condition [facility] Dysthymic Disorder (ICD-9-CM 300.4) Active Condition [facility] Elevated PSA Active Condition [facility] Head and Neck Cancer, Unknown Site Active Condition Dec 21, 2008 Entered By: TIANNA LEBLANC Comment: has received radiation post neck surgeryDec 21, 2008 Entered By: TIANNA LEBLANC Comment: salivary glands goneDec 21, 2009 Entered By: TIANNA LEBLANC Comment: SCC, necklymph nodes, left nipple,2001Dec 21, 2009 Entered By: [facility]IANNA LEBLANC [facility] Entered By: TIANNA LEBLANC Comment: records scanned [facility] Hyperkalemia * (ICD-9-CM 276.7) Active Condition [facility] Impacted Cerumen Active Condition [facility] Thong [facility] Internal hemorrhoids without mention of complication (ICD-9-CM 455.0) Active Condition [facility] Low Back Pain Active Condition [facility] Major Depressive Disorder, Recurrent Active Condition [facility] Major Depressive Disorder, Recurrent, Severe, without Psychotic Features (ICD-9- Active Condition [facility] Melanoma of Skin Active Condition Dec 21, 2008 Entered By: TIANNA LEBLANC Comment: Dr Day, several removed [facility] Memory loss Active Condition [facility] Mood Disorder NOS Active Condition [facility] Nicotine Dependence Active Condition Dec 21, 2009 Entered By: TIANNA LEBLANC Comment: declines treatment [facility] PANIC D/O W/0 AGORA Active Condition [facility] Personal History of Colonic Polyps Active Condition Nov 08, 2010 Entered By: ROMAINE ROBLES Comment: Due for repeat colonoscopy 08/2011 - 09/2011May 2011 Entered By: ANNMARIE GUARDADO Comment: repeat colonoscopy due in 08/2012 [facility] Prostate cancer Active Condition [facility] Sensory neuropathy Active Condition [facility] Tobacco use Active Condition [facility] Tobacco Use * (ICD-9-CM 305.1) Active Condition [facility] Vitamin D deficiency (SNOMED CT 86681207) Active Condition [facility] Medications Combined list of outpatient [...] DAY ORAL ACTIVE CAR FIGUEREDO MD 2018 [facility] Immunizations Combined list of available immunizations from the Department of [facility] and Veterans Affairs facilities. Immunization Series Date Given Administered By Site Reaction Lot Number CVX Code Drug Industrial Engineering Technician Status Comments Source COVID-19 (MODERNA), MRNA, LNP-S, PF, 100 MCG/0.5 ML DOSE 2 2020 207 complet ed MOD; [id number]; 1 [facility] COVID-19 (MODERNA), MRNA, LNP-S, PF, 100 MCG/0.5 ML DOSE 1 2020 207 complet ed MOD; [id number]; 1 [facility] TDAP 2012 115 complet ed Left Deltoid [facility] Procedures Combined list of: 1) Procedures from Department of Veterans Affairs facilities [facility], not all VA non-surgical procedures are included; 2) All procedures from the Department of Defense facilities. Procedure Procedure Type Code Date Perfomer Comments Sourc e COLLECTION OF VENOUS BLOOD B Y VENIPUNCTURE 11/22/2005 [facility] COLLECTION OF VENOUS BLOOD B Y VENIPUNCTURE 05/16/2005 [facility] Social History Combined list of available smoking, tobacco, and other social history from Department of Defense and Veterans Affairs facilities. 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/22/2019 [facility] History of tobacco use VA-TOBACCO USE WI 30 MIN OF WAKEUP 02/24/2018 [facility] History of tobacco use TOBACCO USER OFFERED MEDS 11/27/2017 [facility] History of tobacco use QUIT TOBACCO >7 YEARS AGO 11/30/2014 [facility] History of tobacco use CURRENT TOBACCO USER 01/04/2014 [facility] History of tobacco use CURRENT TOBACCO USER 01/20/2013 [facility] History of tobacco use CURRENT TOBACCO USER 06/25/2012 [facility] History of tobacco use CURRENT TOBACCO USER 07/19/2011 [facility] History of tobacco use CURRENT TOBACCO USER 07/17/2010 [facility] History of tobacco use CURRENT TOBACCO USER 12/20/[facility] History of tobacco use CURRENT TOBACCO USER 12/21/[facility] History of tobacco use CURRENT TOBACCO USER 10/28/2006 [facility] History of tobacco use PT REFUSED SMOKING CESSATION CLASSES 02/04/2004 [facility] History of tobacco use CURRENT TOBACCO USER 07/03/2001 [facility] This section is an empty social history section. DoD
[2025-01-31 08:29] VITALS: BP 102/66; PULSE 79; RESP 18; TEMP 36.8; O2SAT 86
--- NOTE | 2025-01-31 08:30 | ED.NECK ---
HPI - Neck Pain/Injury General Chief Complaint: Neck Pain/Injury Stated Complaint: Fall/Neck Pain Time Seen by Provider: 01/31/25 08:23 Source: patient, RN notes reviewed and old records reviewed Mode of arrival: ambulatory Limitations: no limitations History of Present Illness HPI Narrative: 74 year old male presents to [facility] care with complaints of falling 3 days ago and presents today for neck pain of posterior neck. Patient reports that he is having increased pain to his posterior neck with decreased mobility turning head from side to side. 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 Patient has dyspnea with minimal exertion noted, SAO2 88% on room air, Patient reports that e does sleep with oxygen therapy. MD complaint: neck pain Onset (ago): day(s) (3) Place: street/outdoors (at home in the yard) Severity: severe Severity scale (1-10): 10 Quality: sharp and aching Treatments prior to arrival: other (pain medication) Related Data Home Medications ?Medication ?Instructions ?Recorded ?Confirmed ?Last Taken ?Type hydrocodone 10 mg-acetaminophen 1 tablet PO Q4H 01/29/25 01/29/25 Unknown History 325 mg tablet Allergies Allergy/AdvReac Type Severity Reaction Status Date / Time No Known Allergies Allergy Verified 01/31/25 08:30 Review of Systems Review of Systems: CONSTITUTIONAL: Denies fever, chills, or sweats. EYES: Denies visual changes, redness, or discharge. ENT: Denies rhinorrhea, congestion, sore throat, or otalgia. CARDIOVASCULAR: Denies chest pain, palpitations, or edema. RESPIRATORY: Reports chronic cough and dyspnea history COPD and recently diagnosed with squamous cell carcinoma of right upper lobe of lung is to have port-a-cath inserted tomorrow and starts chemo and radiation on the of this month. GASTROINTESTINAL: Denies abdominal pain, nausea, vomiting, or diarrhea. GENITOURINARY: Denies dysuria or hematuria. SKIN: Denies rash or itching. MUSCULOSKELETAL: Reports cervical spine back pain, joint pain, or myalgia. NEUROLOGIC: Denies headache, numbness, or weakness.reports posterior neck pain from fall and decreased mobility turning head side to side. PSYCHIATRIC: Positive for anxiety or depression. 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 Prostate cancer Recently discovered on biopsy. Apparently low-grade and is being followed by surveillance. Melanoma Melanoma x2 excised from the chest. Anxiety Depression Arthritis Back fracture T12 fracture in 1992. Surgical History Surgical History Status post-operative repair of closed fracture of left hip Status post surgical removal of malignant neoplasm of skin Including melanoma from the chest and basal cell carcinoma from the cheek and arms. History of back surgery Hx of appendectomy Family History Family History Mother Congestive heart failure Social History Social History Social History: The patient is to his 3rd and lives in [place]. He has 13 children, youngest is 3. He is retired, worked for the [employer]. He designates his , Nicole, as his surrogate decision maker and he wishes to be a full code. Smoking packs per day: 1.5 Smoking cigarettes per day: 30.0 Years smoked: 50 Smoking pack-years: 75.00 Smoking status: Former smoker Tobacco type: cigarettes Alcohol intake: never Substance use: never Substance use type: does not use Last use: oct 29, 2024 Lack of Transportation: No Lack of Food: Never True Current Housing: I Have Housing Concerned About Future Housing: No Difficulty Paying Gas/Electric Bills: No Difficulty Paying for Meds: No Currently Unemployed: No Education: Bachelor's Degree Difficulty w/ Childcare or Family Care: No Living arrangements: with family Additional living arrangements comments: Occupation/Education: retired Gender identity (if verbalized by the patient): Male Sexual Orientation (if Verbalized by the Patient): Straight or Heterosexual Spiritual care concerns: No Agree to blood products: Yes Comments At time of signature, agree with nursing past medical, surgical, social and family history. There is no relevant family history pertinent to the presenting complaint Exam Narrative: GENERAL:Chronic ill appearing fair-nourished,frail and in no acute distress. HEAD: Normocephalic, atraumatic. EYES: PERRLA and EOMI. ENT: Nares clear, no rhinorrhea or epistaxis. Mucous membranes moist.TM's normal, throat pink without swelling NECK: posterior neck pain has some difficulty turning his neck side to side, denies radiation of pain down arms or to hands CHEST: Decreased in bases to auscultation. No acute respiratory distress, admits to always having some shortness of breath does sleep with oxygen and uses inhalers daily.recently diagnosed with right upper lobe cancer, highest SAO2 noted of 88% on room air. HEART: Regular rate and rhythm. No murmur heard. Normal peripheral pulses. ABDOMEN: Soft, nontender, nondistended, normal active bowel sounds. EXTREMITIES: Normal range of motion. No edema. SKIN: Warm, dry, no rash. NEURO: No focal deficits. Alert and oriented x3. Course Course Emergency Course: Patient is aware of diagnosis, understands and agrees to treatment plan.? Anticipatory guidance given.? Patient agrees to follow-up as directed and is aware of reasons to seek care at the emergency department. Portions of this record may have been created with voice recognition software Level of Care: Express Care Visit Vital Signs Vital signs: Vital Signs Temperature 36.8 C 01/31/25 08:29 Pulse Rate 79 01/31/25 08:29 Respiratory Rate 18 01/31/25 08:29 Blood Pressure 102/66 01/31/25 08:29 Pulse Oximetry 86 L 01/31/25 08:29 Oxygen Delivery Room Air 01/31/25 08:29 Temperature 36.8 C 01/31/25 08:29 Pulse Rate 79 01/31/25 08:29 Respiratory Rate 18 01/31/25 08:29 Blood Pressure 102/66 01/31/25 08:29 Pulse Oximetry 88 L 01/31/25 09:27 Oxygen Delivery Room Air 01/31/25 09:27 Reviewed MDM - Neck Pain/Injury Differential Diagnosis Differential diagnosis: Likely disc disorder of cervical region, cervical spondylosis, strain of neck muscle and other (fall) Medical Records Attestation: I reviewed the patient's medical records. Imaging Data Attestation: I personally reviewed and interpreted this imaging study as follows: My impression: no acute fracture severe cervical spondylosis, osteopenia Radiologist's impression: [address] [address] XRay Report Signed Patient: Rogelio Kearney : 1950 MR#: [id number] Age: 74 Acct:[id number] Loc: [facility] ADM Date: 01/31/25Attending Dr: Ordering Physician: Susan Vega APRN Date of Service: 01/31/25 Procedure(s): XR cervical spine 2-3V Accession Number(s): [id number] cc: Kirsten Matthews MD; Susan Vega APRN~ [id number] 01/31/2025 08:57 Indication: Status post fall 3 days ago Procedure: 4 view cervical spine Comparison: No prior studies for comparison. Findings: There is osteopenia. Vertebral body heights are maintained. There is severe cervical spondylosis characterized by disc narrowing, multilevel uncinate and facet hypertrophy. C7 not well visualized on the lateral view. No prevertebral soft tissue swelling. Odontoid process is normal. Lateral masses normally aligned. Lung apices are normal. Impression: 1: No acute fracture. Limited visualization of C7. 2: Severe cervical spondylosis. Reviewed, dictated and finalized at location A. Please be advised this is a medical document. It is intended for [id number] communication. It is written in medical language and may contain unfamiliar abbreviations or verbiage. Medical documents are intended to carry relevant information, facts as evident, and the clinical opinion of the practitioner at the time of the encounter. This report may have been done utilizing a voice recognition system. Attempts have been made to correct errors. However, there may be uncorrected grammatical, spelling, and recognition errors present. The file time of this note does not necessarily represent the time of service. Dictated By: Delbert Truong MD 01/31/25 0902 Signed By: <Electronically signed by Delbert Truong MD in OV> Critical Care Time Critical Care Time Critical Care Time: No Discharge Plan Discharge Clinical Impression: Posterior neck pain, Spondylosis of cervical spine Patient Disposition: Home Condition: Stable Instructions: Antibiotic Form, Neck Pain (ED) Additional Instructions: Ice and heat to the area for 20-30 minutes Gentle stretching exercises Gentle massage Caution with lifting, bending, stooping, twisting Avoid pushing, pulling take muscle relaxants as directed--caution drowsiness and no driving or alcohol Anti-inflammatory medicine as directed--take with food such as ibuprofen and Tylenol He may take the muscle relaxant and anti-inflammatory at the same time Pain medicine as directed for severe pain--caution drowsiness-no driving or alcohol. If this medicine is a narcotic, you can become constipated. He may want to start a laxative right away. Follow-up with your PCP if not improving in 5-7 days as prescribed previously for his pain If your symptoms persist, change or worsen significantly before you can contact your personal physician then please, without delay, go to the emergency department for further evaluation. Follow-up with PCP in 7-10 days or sooner if needed Patient Language: Yakut Prescriptions: New cyclobenzaprine 5 mg tablet 5 mg PO BID Qty: 14 0RF Rx Instructions: can not drive or operate machinery while driving No Action Trelegy Ellipta 100-62.5-25 mcg blister with device 1 inh inhalation DAILY Qty: 28 5RF omeprazole 40 mg capsule,delayed release(DR/EC) 40 mg PO BID Qty: 180 0RF hydrocodone-acetaminophen 10-325 mg tablet 1 tablet PO Q4H lorazepam 2 mg tablet 2 mg PO BID PRN (Reason: Anxiety) Qty: 60 2RF phenelzine 15 mg tablet 15 mg PO TID Qty: 270 1RF Follow-up/Referrals: Pal Matthews MD [Primary Care Provider] - Time of Disposition: 09:19 Quality Rashi Coma Scale Eyes: Open Verbal: Oriented and Alert Motor: Follows Commands Rashi Coma Total Score: 15
[2025-01-31 09:27] VITALS: O2SAT 88
== END 2025-01-31 09:30 | disposition home or self-care (01) ==
PROVIDERS: Emergency Provider Registered Nurse; PCP Family Medicine
DX: M54.2 Cervicalgia (principal); M47.812 Spondylosis without myelopathy or radiculopathy, cervical region; C34.11 Malignant neoplasm of upper lobe, right bronchus or lung; K21.9 Gastro-esophageal reflux disease without esophagitis; E78.5 Hyperlipidemia, unspecified; J44.9 Chronic obstructive pulmonary disease, unspecified; M19.90 Unspecified osteoarthritis, unspecified site; F41.9 Anxiety disorder, unspecified; Z85.46 Personal history of malignant neoplasm of prostate; Z85.820 Personal history of malignant melanoma of skin; Z85.818 Personal history of malignant neoplasm of other sites of lip, oral cavity, and pharynx; Z85.828 Personal history of other malignant neoplasm of skin; Z87.891 Personal history of nicotine dependence
CPT/HCPCS: 72040; 99213; G0463

== ENCOUNTER 2025-02-01 00:59 | Day surgery (SDC) | payer OTHER, SELFPAY ==
--- NOTE | 2025-01-29 17:25 | PC.NURSE ---
Report to the Outpatient Waiting Room, entrance under the green pavilion located off [facility], at time __0600 on date ___[id number]____. Planned Procedure Time: ____0730____.? Time changes happen often and if your time is changed the preop area will call you the afternoon before. - You and your visitor will be asked to self-screen and do not enter if you have any COVID symptoms. Please call surgeon if you need to reschedule. - A mask is optional within the hospital at this time. Patients may have clear liquids (water, carbonated beverages, clear teas, apple juice) until 3 hours prior to surgery with a maximum of 20 ounces. - No food from midnight until time of surgery and no smoking, or chewing tobacco (or any form of nicotine). No chewing gum, candy or mints. Take only the following medications with a SIP of water on the morning of surgery: _You_May take all meds except your omeprazole. Please tell your anesthesia team if you take your prn Ativan or your Hydrocodone before receiving anesthesia. Please no make-up, nail niuean, hairspray, perfume, deodorant, or body powder the day of surgery.? No jewelry (including any body piercings) or valuables the day of surgery, leave them at home.? Please take a shower or bath the night before, or the morning of, surgery with an antibacterial soap.? Wear comfortable, loose fitting clothing.? - Jewelry must be removed prior to entering the operating room.? Rings and piercings that are not removed may be cut off. - The hospital will not accept responsibility for valuables.? - Please leave all valuables, including medications, at home the day of surgery. If you are going home after surgery, a licensed local flatbed driver must drive you home.? - NO public transportation without another adult if you receive anesthesia. - We recommend that an adult stay with you for 24 hours following discharge. - We also recommend that you do not drive, make important decision, drink alcoholic beverages, or take any drugs that were not prescribed by your health care provider for at least 24 hours after your discharge time. Follow any additional instructions given to you from your surgeon. Telephone instructions given to ___patient/Robert and asked if any additional questions and then verbalized understanding. Patient advised to call surgeon office or pre surgery nurse liaison [phone] if any additional questions.
[2025-01-29 17:31] VITALS: BMI 21.2
--- NOTE | ~2025-02-01 | XR_ITS ---
EXAMINATION: XR fl guide central line place DATE: 02/01/2025 08:21 INDICATION: Port catheter insertion TECHNIQUE: 3 fluoroscopic images of the right chest were obtained during procedure performed by Cyrus perea. Radiologist was not present for the imaging or procedure. The amount of fluoroscopy time used during this procedure was 0.3 minutes. Total DAP was 0.76530 mGym^2. COMPARISON: None. FINDINGS: Interval placement of a right internal jugular central venous port catheter with distal tip projecting over the caudal superior vena cava. There is a paramediastinal mass at the right apex con cerning for malignancy. IMPRESSION: 1. Fluoroscopy utilized during placement of a right internal jugular central venous port catheter wit h distal tip at the caudal superior vena cava. 2. Right upper lobe paramediastinal mass concerning for primary bronchogenic carcinoma. Reviewed, dictated and finalized at location A. IMPRESSION: 1. Fluoroscopy utilized during placement of a right internal jugular central ve nous port catheter with distal tip at the caudal superior vena cava. 2. Right upper lobe paramediastinal mass concerning for primary bronchogenic ca rcinoma.
--- NOTE | ~2025-02-01 | XR_ITS ---
EXAMINATION: XR chest port-a-cath/central DATE: 02/01/2025 08:44 INDICATION: Port catheter insertion TECHNIQUE: frontal view of the chest was obtained. COMPARISON: Chest radiograph dated 12/25/2024 FINDINGS: Interval placement of a right internal jugular central venous port catheter with distal tip at the ca udal superior vena cava. Improved aeration in the right lung with resolution of the prior right basil ar opacities. Mild elevation the left hemidiaphragm with residual opacity left lower lung zone. No pl eural effusion or pneumothorax. Heart size is normal. Partially visualized instrumented thoracolumbar posterior spinal fusion with bilateral vertical rods with laminar hooks and wires. IMPRESSION: 1. Improved aeration at the right lung with no evident pneumothorax or pleural effusion post right in ternal jugular central venous port catheter placement with tip at the caudal superior vena cava. 2. Unchanged elevation the left hemidiaphragm with residual opacities the left lower lung zone which could represent atelectasis or pneumonia. Reviewed, dictated and finalized at location A. IMPRESSION: 1. Improved aeration at the right lung with no evident pneumothorax or pleural effusion post right internal jugular central venous port catheter placement wit h tip at the caudal superior vena cava. 2. Unchanged elevation the left hemidiaphragm with residual opacities the left lower lung zone which could represent atelectasis or pneumonia.
--- OUTSIDE RECORDS SUMMARY | 2025-02-01 01:03 | XMS_ITS | Continuity of Care Document ---
Author Name [facility] Organization [facility] Care Team Providers Care Storage Facility Housekeeper Name Role Phone [facility] Unavailable Unavailable Problems Combined list of problems from Department of Defense and [facility] Affairs facilities. It does not include entries that were removed or entered in error. 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 [facility] Folliculitis Active 1 Condition [facility] Malignant neoplasm of skin Active 1 Condition [facility] Melanoma of Skin Active 1 Condition [facility] Anxiety Disorder NOS Active 2 Condition [facility] Anxiety Disorder * (ICD-9-CM 300.00) Active Condition [facility] Anxiety Disorder NOS Active Condition [facility] Basal cell carcinoma of skin Active Condition [facility] Depression * (ICD-9-CM 300.4/311.) Active Condition [facility] Depression * (ICD-9-CM 311./300.4) Active Condition [facility] Dysthymic Disorder (ICD-9-CM 300.4) Active Condition [facility] Elevated PSA Active Condition [facility] Head and Neck Cancer, Unknown Site Active Condition Dec 21, 2008 Entered By: TIANNA LEBLANC Comment: has received radiation post neck surgeryDec 21, 2008 Entered By: TIANNA LEBLANC Comment: salivary glands goneDec 21, 2009 Entered By: TIANNA LEBLANC Comment: SCC, necklymph nodes, left nipple,2001Dec 21, 2009 Entered By: [facility] Entered By: TIANNA LEBLANC Comment: records scanned [facility] Hyperkalemia * (ICD-9-CM 276.7) Active Condition [facility] Impacted Cerumen Active Condition [facility] Thong [facility] Internal hemorrhoids without mention of complication (ICD-9-CM 455.0) Active Condition [facility] Low Back Pain Active Condition [facility] Major Depressive Disorder, Recurrent Active Condition [facility] Major Depressive Disorder, Recurrent, Severe, without Psychotic Features (ICD-9- Active Condition [facility] Melanoma of Skin Active Condition Dec 21, 2008 Entered By: TIANNA LEBLANC Comment: Dr Day, several removed [facility] Memory loss Active Condition [facility] Mood Disorder NOS Active Condition [facility] Nicotine Dependence Active Condition Dec 21, 2009 Entered By: TIANNA LEBLANC Comment: declines treatment [facility] PANIC D/O W/0 AGORA Active Condition [facility] Personal History of Colonic Polyps Active Condition Nov 08, 2010 Entered By: ROMAINE ROBLES Comment: Due for repeat colonoscopy 08/2011 - 09/2011May 2011 Entered By: ANNMARIE GUARDADO Comment: repeat colonoscopy due in 08/2012 [facility] Prostate cancer Active Condition [facility] Sensory neuropathy Active Condition [facility] Tobacco use Active Condition [facility] Tobacco Use * (ICD-9-CM 305.1) Active Condition [facility] Vitamin D deficiency (SNOMED CT 46397235) Active Condition [facility] Medications Combined list of outpatient medications [...] DAY ORAL ACTIVE CAR FIGUEREDO MD 2018 [facility] Immunizations Combined list of available immunizations from the Department of [facility] and Veterans Affairs facilities. Immunization Series Date Given Administered By Site Reaction Lot Number CVX Code Drug Manager Of Software Development Status Comments Source COVID-19 (MODERNA), MRNA, LNP-S, PF, 100 MCG/0.5 ML DOSE 2 2020 207 complet ed MOD; [id number]; 1 [facility] COVID-19 (MODERNA), MRNA, LNP-S, PF, 100 MCG/0.5 ML DOSE 1 2020 207 complet ed MOD; [id number]; 1 [facility] TDAP 2012 115 complet ed Left Deltoid [facility] Procedures Combined list of: 1) Procedures from Department of Veterans Affairs facilities [facility], not all VA non-surgical procedures are included; 2) All procedures from the Department of Defense facilities. Procedure Procedure Type Code Date Perfomer Comments Sourc e COLLECTION OF VENOUS BLOOD B Y VENIPUNCTURE 11/22/2005 [facility] COLLECTION OF VENOUS BLOOD B Y VENIPUNCTURE 05/16/2005 [facility] Social History Combined list of available smoking, tobacco, and other social history from Department of Defense and Veterans Affairs facilities. 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 History of tobacco use QUIT TOBACCO >7 YEARS AGO 11/30/2014 [facility] History of tobacco use CURRENT TOBACCO USER 01/04/2014 [facility] History of tobacco use CURRENT TOBACCO USER 01/20/2013 [facility] History of tobacco use CURRENT TOBACCO USER 06/25/2012 [facility] History of tobacco use CURRENT TOBACCO USER 07/19/2011 [facility] History of tobacco use CURRENT TOBACCO USER 07/17/2010 [facility] History of tobacco use CURRENT TOBACCO USER 12/20/2009 [facility] History of tobacco use CURRENT TOBACCO USER 12/21/2008 [facility] History of tobacco use CURRENT TOBACCO USER 10/28/2006 [facility] History of tobacco use PT REFUSED SMOKING CESSATION CLASSES 02/04/2004 [facility] History of tobacco use CURRENT TOBACCO USER 07/03/2001 [facility] This section is an empty social history section. DoD
--- OUTSIDE RECORDS SUMMARY | 2025-02-01 01:03 | XMS_ITS | Clinical Summary ---
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
--- OUTSIDE RECORDS SUMMARY | 2025-02-01 01:03 | XMS_ITS | Clinical Summary ---
[facility] Address [address] [place] [address] Care Team Providers Care Ambulance Mechanic Name Role Phone Unavailable Primary Care Provider Unavailabl e Allergies No known active allergies Medications LORazepam (ATIVAN) 2 mg tablet 1 Active phenelzine (NardiL) 15 mg tablet Take 15 mg by mouth 3 times daily. Active Trelegy Ellipta 100-62.5-25 mcg Disk with Device Take 1 Puff by inhalation daily. 5 Active naloxone (NARCAN) 4 mg/spray [place], Non-Aerosol EMERGENCY USE ONLY: Administer 1 spray [...] Description 01/26/2025 10:00 AM CDT Office Visit [facility] Oncology and Hematology - [place] [place] [address] Nba Ponce MD Malignant neoplasm of upper lobe of right lung (CMS/HCC) (Primary Dx) 01/19/2025 External Device Data 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, Abstract 01/19/2025 External Device Data 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, Abstract 01/19/2025 External Device Data 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, Abstract 01/13/2025 11:00 AM CDT Office Visit [facility] and Hematology [address] [address] Luna Birmingham MD Malignant neoplasm of upper [...] on file 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
--- NOTE | 2025-02-01 06:55 | P.PNAN_ITS ---
Anes - Initial Pre Proc Eval Procedure: Operation Date: 02/01/25 07:30 Proposed Procedures p Insertion Saul Cath - Sharad Jara DO Date/Time: 02/01/25 06:55 Surgeon: Sharad Jara DO Pre Op Diagnosis: malignant neoplasm of upper lobe of rt long Patient Data Age: 74 Gender: M Height: 1.83 m Weight: 70.8 kg Allergies Allergy/AdvReac Type Severity Reaction Status Date / Time No Known Allergies Allergy Verified 01/31/25 08:30 Home Medications ?Medication ?Instructions ?Recorded ?Confirmed ?Type fluticasone fur. 100 mcg-umeclid 1 inh inhalation DAILY #28 ea 11/13/24 01/29/25 Rx 62.5 mcg-vilant 25 mcg inhalat.powder (Trelegy Ellipta) lorazepam 2 mg tablet 2 mg PO BID PRN Anxiety #60 tabs 11/27/24 01/29/25 Rx omeprazole 40 mg capsule,delayed 40 mg PO BID #180 caps 01/05/25 01/29/25 Rx release phenelzine 15 mg tablet 15 mg PO TID #270 tabs 01/21/25 01/29/25 Rx hydrocodone 10 mg-acetaminophen 1 tablet PO Q4H 01/29/25 01/29/25 History 325 mg tablet cyclobenzaprine 5 mg tablet 5 mg PO BID #14 tabs 01/31/25 Rx Patient hx anesthesia problems: none Family hx anesthesia problems: none Results Review: All pre-operative results and documents have been reviewed as part of the pre- operative evaluation. 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 Prostate cancer Recently discovered on biopsy. Apparently low-grade and is being followed by surveillance. Melanoma Melanoma x2 excised from the chest. Anxiety Depression Arthritis Back fracture T12 fracture in 1992. Surgical History Surgical History Status post-operative repair of closed fracture of left hip Status post surgical removal of malignant neoplasm of skin Including melanoma from the chest and basal cell carcinoma from the cheek and arms. History of back surgery Hx of appendectomy Family History Family History Mother Congestive heart failure Social History Social History Social History: The patient is to his 3rd and lives in [place]. He has 13 children, youngest is 3. He is retired, worked for the [employer]. He designates his , Nicole, as his surrogate decision maker and he wishes to be a full code. Smoking packs per day: 1 Smoking cigarettes per day: 20.0 Years smoked: 55 Smoking pack-years: 55.00 Smoking status: Former smoker Tobacco type: cigarettes Alcohol intake: never Substance use: never Substance use type: does not use Last use: oct 29, 2024 Lack of Transportation: No Lack of Food: Never True Current Housing: I Have Housing Concerned About Future Housing: No Difficulty Paying Gas/Electric Bills: No Difficulty Paying for Meds: No Currently Unemployed: No Education: Bachelor's Degree Difficulty w/ Childcare or Family Care: No Living arrangements: with family Additional living arrangements comments: Occupation/Education: retired Gender identity (if verbalized by the patient): Male Sexual Orientation (if Verbalized by the Patient): Straight or Heterosexual Spiritual care concerns: No Agree to blood products: Yes Anes - Eval Final PreProcedure Day of Procedure 02/01/25 06:55 Patient weight: normal Heart: regular rate and rhythm Lungs: decreased breath sounds Airway: Mallampati scale class II Neurological: alert and oriented Last oral intake: >/= 8 hours ASA classification: IV Emergent: no Anesthetic plan: proceed Anesthesia type and monitoring: general GIVS and standard monitoring Results Review: All pre-operative results and documents have been reviewed as part of the pre- operative evaluation. Informed Consent: The patient's anesthetic plan and its attendant risks and benefits were discussed with the patient/family/POA. Questions were solicited and answers provided to the satisfaction of the patient/family/POA.
[2025-02-01 06:57] LABS: Basophils Absolute Auto 0.1 K/mm3 (0.0-0.1); Basophils Percent Auto 0.7 % (0.2-1.2); Eosinophils Absolute Auto 0.5 K/mm3 (0-0.3); Eosinophils Percent Auto 5.7 % (0-4.4); Hematocrit 37.3 % (42.0-52.0); Hemoglobin 10.9 g/dL (14.0-18.0); Immature Granulocyte Absolute 0.02 K/mm3 (0.00-0.031); Immature Granulocyte Percent A 0.2 % (0-0.5); Lymphocytes Absolute Auto 1.16 K/mm3 (0.9-3.2); Lymphocytes Percent Auto 14.1 % (18.3-44.2); Mean Corpuscular HGB Conc 29.2 g/dl (32-36); Mean Corpuscular Hemoglobin 26.8 pg (26-34); Mean Corpuscular Volume 91.9 fl (80-100); Monocytes Absolute Auto 0.8 K/mm3 (0.1-0.6); Monocytes Percent Auto 9.6 % (2.6-8.5); Neutrophils Absolute Auto 5.7 K/mm3 (1.3-6.7); Neutrophils Percent Auto 69.7 % (45.5-73.1); Platelet Count Result 330 k/mm3 (150-375); Red Blood Count 4.06 M/mm3 (4.6-6.20); Red Cell Distribution Width 15.6 % (11.5-14.5); White Blood Count 8.2 K/mm3 (4.5-10.0)
[2025-02-01 07:00] VITALS: BP 107/65; PULSE 73; RESP 14; TEMP 36.8; O2SAT 93
[2025-02-01] MEDS: LACTATED RINGERS 1,000 ML 30 ML IV CONT (07:00)
[2025-02-01] MEDS: KETOROLAC 15 MG/ML VIAL (*BKC) IV PUSH (07:00)
[2025-02-01 07:10] LABS: Prothrombin Time 13.4 Seconds (11.1-14.7)
[2025-02-01 07:11] LABS: Partial Thromboplastin Time 32.7 Seconds (22.3-36.8)
--- NOTE | 2025-02-01 07:20 | WPDHPUPDATE1 ---
History and Physical Update Update Date/Time: 02/01/25 07:20 History and Physical has been reviewed, including an updated exam of the patient. There are NO changes in the patient's condition. Risks, benefits, and alternatives have been discussed and questions answered. Patient agrees to proceed with procedure.
--- NOTE | 2025-02-01 07:20 | PM.IMHP ---
H&P: HPI History of Present Illness Date/Time: 02/01/25 07:20 Chief Complaint: right lung cancer Narrative: 74 yo man presents for portacath placement. He has a recent diagnosis of right lung cancer and will be starting chemotherapy soon. Review of Systems Review of Systems: All systems reviewed & are unremarkable except as noted in HPI and below Constitutional: Constitutional: Denies chills, Denies fever(s), Denies headache(s) and Denies weight loss Eyes: Eyes: Denies change in vision ENT: Denies dizziness, Denies headache(s), Denies neck mass and Denies throat swelling Cardiovascular: Cardiovascular: Denies chest pain, Denies lightheadedness and Denies dyspnea Respiratory: Respiratory: Denies cough, Denies dyspnea and Denies wheezing Gastrointestinal: Gastrointestinal: Denies abdominal pain, Denies change in bowel habits, Denies nausea and Denies vomiting Genitourinary: Genitourinary: Denies hematuria and Denies dysuria Musculoskeletal: Musculoskeletal: Reports as per HPI Integumentary/Breasts: Skin/Breast: Reports as per HPI Neurologic: Denies dizziness and Denies headache(s) Allergic/Immunologic: Allergic/Immunologic: Denies throat swelling and Denies wheezing PMF Past Medical History Medical History Greater trochanter fracture (~01/2024) Non-small cell carcinoma of right lung (~12/2024) Respiratory failure (~10/2024) Hx of malignant neoplasm of prostate GERD without esophagitis Hyperlipidemia Skin cancer History of fracture of left hip COPD (chronic obstructive pulmonary disease) 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 Prostate cancer Recently discovered on biopsy. Apparently low-grade and is being followed by surveillance. Melanoma Melanoma x2 excised from the chest. Anxiety Depression Arthritis Back fracture T12 fracture in 1992. Surgical History Surgical History Status post-operative repair of closed fracture of left hip Status post surgical removal of malignant neoplasm of skin Including melanoma from the chest and basal cell carcinoma from the cheek and arms. History of back surgery Hx of appendectomy Family History Family History Mother Congestive heart failure Social History Social History Social History: The patient is to his 3rd and lives in [place]. He has 13 children, youngest is 3. He is retired, worked for the [employer]. He designates his , Nicole, as his surrogate decision maker and he wishes to be a full code. Smoking packs per day: 1 Smoking cigarettes per day: 20.0 Years smoked: 55 Smoking pack-years: 55.00 Smoking status: Former smoker Tobacco type: cigarettes Alcohol intake: never Substance use: never Substance use type: does not use Last use: oct 29, 2024 Lack of Transportation: No Lack of Food: Never True Current Housing: I Have Housing Concerned About Future Housing: No Difficulty Paying Gas/Electric Bills: No Difficulty Paying for Meds: No Currently Unemployed: No Education: Bachelor's Degree Difficulty w/ Childcare or Family Care: No Living arrangements: with family Additional living arrangements comments: Occupation/Education: retired Gender identity (if verbalized by the patient): Male Sexual Orientation (if Verbalized by the Patient): Straight or Heterosexual Spiritual care concerns: No Agree to blood products: Yes Meds Home Medications and Allergies Home Medications ?Medication ?Instructions ?Recorded ?Confirmed ?Type fluticasone fur. 100 mcg-umeclid 1 inh inhalation DAILY #28 ea 11/13/24 01/29/25 Rx 62.5 mcg-vilant 25 mcg inhalat.powder (Trelegy Ellipta) lorazepam 2 mg tablet 2 mg PO BID PRN Anxiety #60 tabs 11/27/24 01/29/25 Rx omeprazole 40 mg capsule,delayed 40 mg PO BID #180 caps 01/05/25 01/29/25 Rx release phenelzine 15 mg tablet 15 mg PO TID #270 tabs 01/21/25 01/29/25 Rx hydrocodone 10 mg-acetaminophen 1 tablet PO Q4H 01/29/25 01/29/25 History 325 mg tablet cyclobenzaprine 5 mg tablet 5 mg PO BID #14 tabs 01/31/25 Rx Allergies Allergy/AdvReac Type Severity Reaction Status Date / Time No Known Allergies Allergy Verified 01/31/25 08:30 Exam Const: General: no acute distress and alert Orientation/consciousness: patient oriented x3 HENMT: Head: normocephalic and atraumatic Ears: hearing grossly normal bilaterally Face/Nose/Sinus: Normal nares present Mouth: Yes Normal oral and palatal mucosa present Eyes: Periorbital: periorbital findings normal Sclera: sclerae normal EOM: EOMs intact bilaterally Neck: Neck: normal visual inspection, no lymphadenopathy and trachea midline Chest: Chest palpation & inspection: normal inspection of the chest Resp: Effort & Inspection: normal respiratory effort Auscultation: clear to auscultation bilaterally Cardio: Jugular venous distension: no JVD Rate: regular rate Rhythm: regular rhythm Heart sounds: S1 normal heart sound present and S2 normal heart sound present Peripheral pulses: Peripheral pulses 2+ throughout GI: Inspection: normal to inspection GI Palp: Yes Soft to palpation, No Tenderness to palpation present (GI), No Guarding due to palpation present (GI) and No Rebound tenderness present Percussion: Yes normal to percussion Auscultation: normal bowel sounds : General: Yes no CVA tenderness Back/Spine/Pelvis: Back: no CVA tenderness Neuro: General: patient oriented x3, no focal motor deficits and CN's II-XI intact bilaterally Cognition (Neuro): normal cognition Speech: normal speech Motor exam (neuro): 5/5 motor strength present throughout Extrem: General: capillary refill normal and no clubbing, cyanosis or edema Assessment and Plan Assessment and plan (1) Non-small cell carcinoma of right lung: Onset Date: ~12/2024 Code(s): C34.91 - Malignant neoplasm of unspecified part of right bronchus or lung Status: Acute Assessment and Plan: I have recommended Port-a-cath placement. I have discussed the procedure, risks, benefits, and alternatives with the patient. All questions answered. No changes since last seen in office.
[2025-02-01 07:27] LABS: Anisocytosis 1+; Hypochromasia 1+; Platelet Estimate Adequate (Adequate); Schistocytes None Seen
[2025-02-01] MEDS: ceFAZolin 2 GM/D5W 50 ML 2 GM/50 ML BAG IVPB (07:30)
[2025-02-01] MEDS: HEPARIN SODIUM, PORCINE 10,000 UNITS/10 ML VIAL 3000 UNITS IV PUSH (07:56)
[2025-02-01] MEDS: HEPARIN SODIUM 5,000 UNITS/ML VIAL 5000 UNITS IRRIGATION (07:57)
[2025-02-01] MEDS: LIDO 1%/EPINEPHRINE 1:100,000 50 ML VIAL INFILTRATE (07:58)
[2025-02-01 08:28] VITALS: BP 117/68; PULSE 91; RESP 16; O2SAT 94
--- NOTE | 2025-02-01 08:36 | P.OP_ITS ---
Procedure Note - Detailed Date of Procedure 02/01/25 Pre-op Diagnosis malignant neoplasm of upper lobe of rt long Post-op Diagnosis Same Procedure Performed Right Internal Jugular tunneled Port-a-Cath placement using fluoroscopic guidanc e Surgeon Sharad Jara, DO Anesthesia MAC and Local (0.5% bupivicaine with epinephrine) Indications This is a 74-year-old man who presents for Port-A-Cath placement. He was recently diagnosed with right lung cancer and will be starting chemotherapy soon. He has never had any ports placed in the past. Findings SonoSite ultrasound was used initially to identify the vein. I initially attempted on the left side but the left internal jugular vein appeared very small. I was able to access the vein with an 18 gauge introducer needle but was unsuccessful at advancing the guidewire. After multiple attempts at advancing the guidewire I then aborted the left side and proceeded with assessment of the right side. The right internal jugular vein appeared much larger and was easy to access. Fluoroscopy was then used to guide advancement of the guidewire followed by the dilator and sheath. The final fluoroscopic images demonstrated the port tip in the distal SVC and no kinks along its path. Description of Procedure Procedure as well as risks, benefits, and alternatives were discussed with patient. Written consent was obtained and placed in chart prior to procedure. Patient was brought back to surgical suite. Was placed supine on operating table. Time-out was done confirm patient procedure. IV sedation was then administered by the Anesthesia Department. The chest and neck area was prepped and draped in sterile fashion using chlorhexidine prep. Patient was placed in Trendelenburg position. I initially attempted access on the left side. SonoSite ultrasound was used to identify the left internal jugular vein. This appeared to be a very small vessel. I attempted access with an 18 gauge introducer needle under ultrasound guidance. I was able to get access to the vein and dark nonpulsatile blood was aspirated. I then attempted advancing the guidewire, but after multiple attempts was unable to get the guidewire to safely advanced down the internal jugular vein. I then aborted the left side and attempted on the right. SonoSite ultrasound was used to identify the right internal jugular vein. It was visualized as a compressible vessel just lateral to the carotid artery. 1% lidocaine with epinephrine was infiltrated directly over the vessel under ultrasound guidance. An 18 gauge introducer needle was then advanced under ultrasound guidance directly into the right internal jugular vein. Dark nonpulsatile blood was aspirated. A 0.035 in guidewire was then advanced through the needle under fluoroscopic guidance. The guidewire was visualized advancing all the way down into the superior vena cava. 1% lidocaine with epinephrine was then infiltrated on the right anterior chest and along the tract up to the guidewire insertion site. A 3 cm incision was made with a 15 blade scalpel, and electrocautery was then used for dissection down through the subcutaneous tissue to the pectoral fascia. A pocket was created just inferior to the incision using blunt dissection. A small samira incision was then also made at the insertion site at the neck. The tunneler was then advanced from the chest incision up to the neck incision and the catheter tubing was brought up through this tract. The dilator and sheath were then advanced over the guidewire under fluoroscopic visualization. The dilator and guidewire were then removed leaving the sheath in place. The catheter tubing was then advanced through the sheath under fluoroscopic guidance. The sheath was unsnapped and carefully peeled away. The catheter tubing was released underneath the neck incision. Fluoroscopy was used to confirm proper placement of the catheter tubing and no kinks along its path. The catheter was then cut to proper length and secured to the port. The port was then accessed with a Herman needle and aspirated and flushed with heparinized saline. The port function with ease. The port was then hep-locked with Hep-Lock solution. The port was then placed within the pocket that was created, and was secured to the fascia using 3 0 Prolene simple interrupted sutures. The patient was flattened out in bed. Gian's fascia was reapproximated using 3 0 Vicryl simple interrupted sutures. The skin of the incisions was then approximated using 4-0 Monocryl subcuticular suture. Exofin glue was then applied on top. The patient was then awakened from anesthesia and transferred to recovery. Implants Bard power port Estimated Blood Loss 5 Complications No immediate complications Condition Stable Disposition Same day [facility] Billing Surgery - Charge Forward: Surgery Billing
[2025-02-01 08:58] VITALS: BP 124/67; PULSE 79; RESP 16; O2SAT 96
[2025-02-01 09:11] VITALS: BP 131/75; PULSE 81; RESP 16
--- NOTE | 2025-02-01 09:18 | SUR.PHASEII ---
0910: patient ready for dc. waiting on ride.
== END 2025-02-01 09:45 | disposition home or self-care (01) ==
PROVIDERS: PCP Family Medicine; Visit Provider Surgery
PROC: (CPT 36561; principal; 2025-02-01 07:30)
DX: C34.11 Malignant neoplasm of upper lobe, right bronchus or lung (principal)
CPT/HCPCS: 36561; 36415; 77001; 85025; 85610; 85730; C1788; J0690; J1596; J1644; J1885; J2003; J2004; J2371; J2704; J3010; J7030; J7120

== ENCOUNTER 2025-02-16 14:33 | Emergency (ER) | payer MEDICARE, SELFPAY ==
[2025-02-16] VITALS (13 sets, daily range): BP systolic 85–126; BP diastolic 40–78; PULSE 68–83; RESP 14–20; TEMP 36.4–36.8; O2SAT 85–100
--- NOTE | ~2025-02-16 | XR_ITS ---
CHEST RADIOGRAPH CLINICAL HISTORY: blurred vision, altered gait, hx of lung ca . COMPARISON: 02/01/2025 TECHNIQUE: Single portable view of the chest. FINDINGS Right internal jugular central venous port catheter identified with its tip projecting over the cavoa trial junction. The remainder of the cardiomediastinal silhouette is otherwise unremarkable. Redemonstration of a right apical lung mass. The remainder of the lungs are clear. IMPRESSION: Stable radiographic evaluation of the chest, demonstrating a right apical lung mass, as detailed sandra e. Reviewed, dictated and finalized at location A. IMPRESSION: Stable radiographic evaluation of the chest, demonstrating a right apical lung mass, as detailed above.
--- NOTE | ~2025-02-16 | CT_ITS ---
History: 74-year-old gentleman with newly diagnosed squamous cell carcinoma presents with blurry vision and al tered gait for diagnostic evaluation. PROCEDURE: CT head without contrast. COMPARISON: None. Reference is made to an MRI examination of the brain performed 01/25/2025, which was without metastatic disease, or additional abnormality. TECHNIQUE: Axial imaging of the head performed from the skull base to the vertex without IV contrast. Sagittal a nd coronal reformations obtained. DLP: 605 mGy-cm FINDINGS: The ventricles are enlarged. The dilatation of the ventricles is proportional to the degree of sulcal prominence, not uncommon in the senescent brain. Decreased attenuation is identified within the periventricular white matter, likely secondary to micr ovascular ischemic disease, in a patient of this age. There is no mass, mass effect or midline shift. There is no abnormal extra-axial fluid collection or intracranial hemorrhage. Visualized paranasal sinuses are clear. The mastoid air cells are well aerated. No acute displaced fractures within the overlying cranium. Impression: No acute intracranial hemorrhage or suspicious mass effect. Reviewed, dictated and finalized at location A. Impression: No acute intracranial hemorrhage or suspicious mass effect.
--- OUTSIDE RECORDS SUMMARY | 2025-02-16 14:38 | XMS_ITS | Continuity of Care Document ---
Author Name [facility] Organization [facility] Care Team Providers Care Desk Representative Name Role Phone [facility] Unavailable Unavailable Problems Combined list of problems from Department of Defense and [facility] Affairs facilities. It does not include entries that were removed or entered in error. 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 [facility] Folliculitis Active 1 Condition [facility] Malignant neoplasm of skin Active 1 Condition [facility] Melanoma of Skin Active 1 Condition [facility] Anxiety Disorder NOS Active 2 Condition [facility] Anxiety Disorder * (ICD-9-CM 300.00) Active Condition [facility] Anxiety Disorder NOS Active Condition [facility] Basal cell carcinoma of skin Active Condition [facility] Depression * (ICD-9-CM 300.4/311.) Active Condition [facility] Depression * (ICD-9-CM 311./300.4) Active Condition [facility] Dysthymic Disorder (ICD-9-CM 300.4) Active Condition [facility] Elevated PSA Active Condition [facility] Head and Neck Cancer, Unknown Site Active Condition Dec 21, 2008 Entered By: TIANNA LEBLANC Comment: has received radiation post neck surgeryDec 21, 2008 Entered By: TIANNA LEBLANC Comment: salivary glands goneDec 21, 2009 Entered By: TIANNA LEBLANC Comment: SCC, necklymph nodes, left nipple,2001Dec 21, 2009 Entered By: [facility]ANC [facility] Entered By: TIANNA LEBLANC Comment: records scanned [facility] Hyperkalemia * (ICD-9-CM 276.7) Active Condition [facility] Impacted Cerumen Active Condition [facility] Thong [facility] Internal hemorrhoids without mention of complication (ICD-9-CM 455.0) Active Condition [facility] Low Back Pain Active Condition [facility] Major Depressive Disorder, Recurrent Active Condition [facility] Major Depressive Disorder, Recurrent, Severe, without Psychotic Features (ICD-9- Active Condition [facility] Melanoma of Skin Active Condition Dec 21, 2008 Entered By: TIANNA LEBLANC Comment: Dr Day, several removed [facility] Memory loss Active Condition [facility] Mood Disorder NOS Active Condition [facility] Nicotine Dependence Active Condition Dec 21, 2009 Entered By: TIANNA LEBLANC Comment: declines treatment [facility] PANIC D/O W/0 AGORA Active Condition [facility] Personal History of Colonic Polyps Active Condition Nov 08, 2010 Entered By: ROMAINE ROBLES Comment: Due for repeat colonoscopy 08/2011 - 09/2011May 2011 Entered By: ANNMARIE GUARDADO Comment: repeat colonoscopy due in 08/2012 [facility] Prostate cancer Active Condition [facility] Sensory neuropathy Active Condition [facility] Tobacco use Active Condition [facility] Tobacco Use * (ICD-9-CM 305.1) Active Condition [facility] Vitamin D deficiency (SNOMED CT [id number]) Active Condition [facility] Medications Combined list of outpatient [...] 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 Immunization Series Date Given Administered By Site Reaction Lot Number CVX Code Drug Loose Hand Packer Status Comments Source COVID-19 (MODERNA), MRNA, LNP-S, PF, 100 MCG/0.5 ML DOSE 2 2020 207 complet ed MOD; [id number]; 1 [facility] COVID-19 (MODERNA), MRNA, LNP-S, PF, 100 MCG/0.5 ML DOSE 1 2020 207 complet ed MOD; [id number]; 1 [facility] TDAP 2012 115 complet ed Left Deltoid [facility] Procedures Combined list of: 1) Procedures from Department of Veterans Affairs facilities [facility], not all VA non-surgical procedures are included; 2) All procedures from the Department of Defense facilities. Procedure Procedure Type Code Date Perfomer Comments Sourc e COLLECTION OF VENOUS BLOOD B Y VENIPUNCTURE 11/22/2005 [facility] COLLECTION OF VENOUS BLOOD B Y VENIPUNCTURE 05/16/2005 [facility] Social History Combined list of available smoking, tobacco, and other social history from Department of Defense and Veterans Affairs facilities. Social History Type Response Date Comment Sourc e Tobacco smoking status NHIS VA-TOBACCO USE WI 30 MIN OF WAKEUP 01/03/2021 [facility] History of tobacco use VA-TOBACCO USE 30 YEARS OR MORE 01/03/2021 [facility] History of tobacco use VA-TOBACCO USE [employer] WORK[employer] CONSULTANT YES 06/22/2019 [facility] History of tobacco use VA-TOBACCO USE WI 30 MIN OF WAKEUP 02/24/2018 [facility] History of tobacco use TOBACCO USER OFFERED MEDS 11/27/2017 [facility] History of tobacco use QUIT TOBACCO >7 YEARS AGO 11/30/2014 [facility] History of tobacco use CURRENT TOBACCO USER 01/04/2014 [facility] History of tobacco use CURRENT TOBACCO USER 01/20/2013 [facility] History of tobacco use CURRENT TOBACCO USER 06/25/2012 [facility] History of tobacco use CURRENT TOBACCO USER 07/19/2011 [facility] History of tobacco use CURRENT TOBACCO USER 07/17/2010 [facility] History of tobacco use CURRENT TOBACCO USER 12/20/2009 [facility] History of tobacco use CURRENT TOBACCO USER 12/21/2008 [facility] History of tobacco use CURRENT TOBACCO USER 10/28/2006 [facility] History of tobacco use PT REFUSED SMOKING CESSATION CLASSES 02/04/2004 [facility] History of tobacco use CURRENT TOBACCO USER 07/03/2001 [facility] This section is an empty social history section. DoD
--- OUTSIDE RECORDS SUMMARY | 2025-02-16 14:38 | XMS_ITS | Clinical Summary ---
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 Active Trelegy Ellipta 100-62.5-25 mcg Disk with Device Take 1 Puff by inhalation daily. 5 Active naloxone (NARCAN) 4 mg/spray Sherrill, Non-Aerosol EMERGENCY USE ONLY: Administer 1 spray (4 mg) in one nostril one time. May repeat in alternating nostrils every 2-3 min until responsive or EMS arrives. 2 Each 3 5 Active lidocaine-pril ocaine (EMLA) 2.5-2.5 % CreamIndicatio ns:Malignant neoplasm of upper lobe of right lung (CMS/HCC) Apply a quarter size amount to port site 30 minutes before access. 30 Gram 1 5 Active ondansetron (ZOFRAN ODT) 8 mg Tablet, Rapid DissolveIndica tions:Malignan t neoplasm of upper lobe of right lung (CMS/HCC) Dissolve 1 tablet on top of tongue then swallow with saliva every 8 hours as needed for nausea or vomiting 30 Tablet 1 5 Active HYDROcodone-ac etaminophen (NORCO) 10-325 mg [...] 025 Discontinu ed(Alterna te therapy prescribed ) HYDROcodone-ac etaminophen (NORCO) 10-325 mg TabletIndicati ons:Malignant neoplasm of upper lobe of right lung (CMS/HCC) Take 1 Tablet by mouth every 4 hours as needed for Pain, Moderate. Max Daily Amount: 6 Tablets 60 Tablet 5 025 Discontinu ed(Reorder ) Active Problems No known active problems Encounters Date Type Department Care Team Description 02/11/2025 External Device Data 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, Abstract 02/10/2025 External Device Data 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, Abstract 02/10/2025 Orders Only [facility] Oncology [facility] [address] [place] [address] Nba Ponce MD Malignant neoplasm of upper lobe of right lung (CMS/HCC) (Primary Dx) 02/09/2025 External Device Data 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, Abstract 02/08/2025 Refill [facility] Oncology and Hematology [facility] [address] [place] [phone] Nba Ponce MD Malignant neoplasm of upper lobe of right lung (CMS/HCC) 02/02/2025 Refill [facility] Oncology and Hematology [facility] [address] [place] [phone] Nba Ponce MD Malignant neoplasm of upper lobe of right lung (CMS/HCC) (Primary Dx) 01/26/2025 10:00 AM CDT Office Visit [facility] Oncology and Hematology [facility] [address] [place] [phone] Nba Ponce MD Malignant neoplasm of upper lobe of right lung (CMS/HCC) (Primary Dx) 01/19/2025 External Device Data 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, Abstract 01/19/2025 External Device Data 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, Abstract 01/19/2025 External Device Data 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, Abstract 01/13/2025 11:00 AM CDT Office Visit [facility] Oncology and Hematology [place] [address] [place] [phone] Luna Birmingham MD Malignant neoplasm of upper [...] on file Legal Sex Male 1:17 PM [employer] Gender Identity Not on file Sexual Orientation [...] Care Team (Late st Contact Info) Description 02/24/2025 8:30 AM CDT Office Visit [facility] Oncology and Hematology - [place] [address] [facility] [place] [address] Nba Ponce MD [address] [facility] [address] [place] [address] Health Maintenance Due Date Last Done Comments PNEUMOCOCCAL VACCINE 50+ YEA RS (1 of 2 - PCV) 1967 ZOSTER VACCINE (1 of 2) 1998 DTAP/TDAP/TD VACCINES (2 - Td or Tdap) 01/20/2023 RSV VACCINE (60+ or ) (1 - 1-dose 75+ series) 2023 INFLUENZA VACCINE (#1) 2024 COVID-19 Vaccine ( - season) 05/24/202411/2020, 11/27/2020 [place] Prev entative Visit/Annual Wellness Visit 09/23/2024 Procedures Procedure Name Priority Date/Time Associated Diagnosis Comments [facility] NORMAL BLOOD Routine 01/26/2025 10:59 AM CDT Malignant neoplasm of upper lobe of right lung (CMS/HCC) [facility]F Routine 01/26/2025 12:00 AM CDT Malignant neoplasm of upper lobe of right lung (CMS/HCC) from Last 3 Months Results * [facility] NORMAL BLOOD (01/26/2025 10:59 AM CDT) [facility] 01/26/2025 11:01 PM CDT [facility] Comment:See NGS Report for R esults. Blood specimen (specimen) 01/26/2025 10:59 AM CDT 01/26/2025 11:00 AM CDT us Nba Ponce MD MOLECULAR ORDERABLES Final Resu lt [facility] [address] [place] [address], [facility] [address] [place] [address] * [facility]F (01/26/2025 12:00 AM CDT) Reason for Study To identify mutations relevant to patient's cancer. 02/04/2025 4:34 PM CDT [facility] Genetic Diseases Assessed Cancer 02/04/2025 4:34 PM CDT [facility] Description of Ranges of DNA Sequences Examined 523 gene liquid biopsy 02/04/2025 4:34 PM CDT [facility] Overall Interpretation positive 02/04/2025 4:34 PM CDT [facility] [email or web address] 02/04/2025 4:34 PM CDT [facility] Comment:[facility] link Low Coverage Regions CARM1, CUL4A, DNMT1, FANCC, FGFR3, GNA11, IMPDH1, KMT2A, MAPK1, MAPK3, MSH3, NFE2L2, NOTCH2, PHLPP2, PIK3R2, PTPRT, RAD51C, RECQL4, RHEB, RHOA, RXRA, SDHAF2, TERT, TGFBR1, TP53, TP63, XBP1, ZNRF3 02/04/2025 4:34 PM CDT [facility] Therapy Count 1 02/04/2025 4:34 PM CDT [facility]: Potential Therapy 1 Gene: 60354^CHEK2^HGNC Variant: p.R519* Match Type: snvIndel Match Type Description: CHEK2 p.R519* Agent: Olaparib Drug Class: PARP Inhibitor Tissue: Prostate Cancer Association: Response Evidence Status: Consensus Evidence ID: NCCN [id number] Variant: [id number] Label: FDA Off Label FDA Approved?: Yes On label?: No 02/04/2025 4:34 PM CDT [facility] Trial Count 3 02/04/2025 4:34 PM CDT [facility]: Clinical Trial Match 1 Clinical Trial NCT ID: [id number] Clinical Trial Title: A Study of PARG Inhibitor [id number] in Participants With Advanced Solid Tumors Clinical Trial URL: [email or web address] Clinical Phase: Phase 1 Clinical Trial Matches: CHEK2 p.R519* mutation Clinical Trial Distance and Location: [address] [place], [place] 02/04/2025 4:34 PM CDT [facility]: Clinical Trial Match 2 Clinical Trial NCT ID: [id number] Clinical Trial Title: TAPUR: Testing the Use of Food and Drug Administration (FDA) Approved Drugs That Target a Specific Abnormality in a Tumor Gene in People With Advanced Stage Cancer Clinical Trial URL: [email or web address] Clinical Phase: Phase 2 Clinical Trial Matches: CHEK2 p.R519* mutation Clinical Trial Distance and Location: [address] [place], [place] 02/04/2025 4:34 PM CDT [facility]: Clinical Trial Match 3 Clinical Trial NCT ID: [id number] Clinical Trial Title: Study Of ATRN-119 In Patients With Advanced Solid Tumors Clinical Trial URL: [email or web address] Clinical Phase: Phase 1/Phase 2 Clinical Trial Matches: CHEK2 p.R519* mutation, TP53 p.R342* mutation Clinical Trial Distance and Location: [address] [place], [place] 02/04/2025 4:34 PM CDT [facility] Tumor Mutational [place] 5.0 m/MB 02/04/2025 4:34 PM CDT [facility] Microsatellite Instability Note MSI-High not detected 02/04/2025 4:34 PM CDT [facility] Blood specimen (specimen) 01/26/2025 01/28/2025 10:55 PM CDT Narrative This result has genomic variants that were not included in this document. Nba oPnce MD MOLECULAR ORDERABLES Final Resu lt [facility] [address] [place] [address], [facility] [address] [place] [address] from Last 3 Months Insurance GENERIC MEDICARE MANAGED CARE
--- NOTE | 2025-02-16 14:59 | ECG_ITS ---
Test Date: 2025-02-16 15:34:34 Measurements Intervals [place]kins Rate: 75 P: 61 AL: 149 QRS: 41 QRSD: 106 T: 47 QT: 368 QTc: 412 Interpretive Statements SINUS RHYTHM Compared to ECG 12/25/2024 17:31:28 Incomplete right bundle-branch block no longer present Electronically Signed On 02-17-2025 16:30:20 CDT by Alisha Ocampo M.D.
[2025-02-16 15:21] LABS: Glucose Point of Care 116 mg/dl (65-105)
[2025-02-16 16:03] LABS: Alanine Aminotransferase 14 U/L (6-50); Albumin Level 3.5 g/dL (3.5-5.1); Alkaline Phosphatase 79 U/L (38-126); Anion Gap 5 mmol/L (4-12); Aspartate Amino Transferase 22 U/L (17-59); Bilirubin,Total 0.5 mg/dL (0.2-1.3); Blood Urea Nitrogen 39 mg/dL (9-20); Calcium 8.4 mg/dL (8.4-10.2); Carbon Dioxide 33 mmol/L (22-30); Chloride 98 mmol/L (98-107); Estimated Glomerular Filt Rate > 60; Glucose 118 mg/dL (65-110); Potassium 4.6 mmol/L (3.4-5.0); Sodium 136 mmol/L (137-145)
[2025-02-16 16:09] LABS: INR 1.1; Prothrombin Time 14.4 Seconds (11.1-14.7)
[2025-02-16 16:10] LABS: Partial Thromboplastin Time 32.1 Seconds (22.3-36.8)
[2025-02-16 16:11] LABS: Basophils Absolute Auto 0.1 K/mm3 (0.0-0.1); Basophils Percent Auto 0.4 % (0.2-1.2); Eosinophils Absolute Auto 0.3 K/mm3 (0-0.3); Eosinophils Percent Auto 2.6 % (0-4.4); Hemoglobin 8.9 g/dL (14.0-18.0); Immature Granulocyte Absolute 0.14 K/mm3 (0.00-0.031); Immature Granulocyte Percent A 1.3 % (0-0.5); Lymphocytes Absolute Auto 0.75 K/mm3 (0.9-3.2); Lymphocytes Percent Auto 6.7 % (18.3-44.2); Mean Corpuscular HGB Conc 29.7 g/dl (32-36); Mean Corpuscular Hemoglobin 27.4 pg (26-34); Mean Corpuscular Volume 92.3 fl (80-100); Monocytes Absolute Auto 0.5 K/mm3 (0.1-0.6); Monocytes Percent Auto 4.2 % (2.6-8.5); Neutrophils Absolute Auto 9.5 K/mm3 (1.3-6.7); Neutrophils Percent Auto 84.8 % (45.5-73.1); Platelet Count Result 316 k/mm3 (150-375); Red Blood Count 3.25 M/mm3 (4.6-6.20); Red Cell Distribution Width 15.7 % (11.5-14.5); White Blood Count 11.2 K/mm3 (4.5-10.0)
[2025-02-16 16:16] LABS: Troponin I < 0.012 ng/mL (0.000-0.034)
[2025-02-16 16:23] LABS: Hypochromasia 1+; Ovalocytes 1+; Platelet Estimate Adequate (Adequate); Schistocytes None Seen
[2025-02-16] MEDS: SODIUM CHLORIDE 0.9% IV 1,000 ML 999 ML IV CONT (17:50)
--- NOTE | 2025-02-16 17:51 | ED_ITS ---
HPI - SOB/Dyspnea General Chief Complaint: Shortness of Breath/Dyspnea Stated Complaint: Disoriented, seeing double-sent for CT scan Time Seen by Provider: 02/16/25 17:04 History of Present Illness HPI Narrative: Patient is a 74-year-old male who presents to the ER with complaints of dizziness, decreased balance, diplopia, and recent falls. He reports he was recently diagnosed with lung cancer and has been receiving chemo and radiation for the past 4 weeks. At the time of examination patient endorses increased back pain from lying on his back through radiation. He reports he has had bilateral upper extremity arm numbness that radiates down to his fingertips. He reports he is usually on 3-4 L nasal cannula. Related Data Home Medications ?Medication ?Instructions ?Recorded ?Confirmed ?Last Taken ?Type hydrocodone 10 mg-acetaminophen 1 tablet PO Q4H 01/29/25 02/10/25 02/01/25 History 325 mg tablet Allergies Allergy/AdvReac Type Severity Reaction Status Date / Time No Known Allergies Allergy Verified 02/16/25 14:35 Review of Systems 2 Review of Systems: All systems reviewed & are unremarkable except as noted in HPI and below PMFSH Past Medical History Medical History Greater trochanter fracture (~01/2024) Non-small cell carcinoma of right lung (~12/2024) Respiratory failure (~10/2024) Hx of malignant neoplasm of prostate GERD without esophagitis Hyperlipidemia Skin cancer History of fracture of left hip COPD (chronic obstructive pulmonary disease) 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 Prostate cancer Recently discovered on biopsy. Apparently low-grade and is being followed by surveillance. Melanoma Melanoma x2 excised from the chest. Anxiety Depression Arthritis Back fracture T12 fracture in 1992. Surgical History Surgical History Status post-operative repair of closed fracture of left hip Status post surgical removal of malignant neoplasm of skin Including melanoma from the chest and basal cell carcinoma from the cheek and arms. History of back surgery Hx of appendectomy Family History Family History Mother Congestive heart failure Social History Social History Social History: The patient is to his 3rd and lives in [place]. He has 13 children, youngest is 3. He is retired, worked for the [employer]. He designates his , Nicole, as his surrogate decision maker and he wishes to be a full code. Smoking packs per day: 1 Smoking cigarettes per day: 20.0 Years smoked: 55 Smoking pack-years: 55.00 Smoking status: Former smoker Tobacco type: cigarettes Smoking end date: 10/29/24 Alcohol intake: never Substance use: never Substance use type: does not use Last use: oct 29, 2024 Lack of Transportation: No Lack of Food: Never True Current Housing: I Have Housing Concerned About Future Housing: No Difficulty Paying Gas/Electric Bills: No Difficulty Paying for Meds: No Currently Unemployed: No Education: Bachelor's Degree Difficulty w/ Childcare or Family Care: No Living arrangements: with family Additional living arrangements comments: Occupation/Education: retired Gender identity (if verbalized by the patient): Male Sexual Orientation (if Verbalized by the Patient): Straight or Heterosexual Spiritual care concerns: No Agree to blood products: Yes Exam 2 Narrative: GENERAL: Well appearing, well-nourished, non-toxic, in no acute distress. HEAD: Normocephalic, atraumatic. NECK: Supple. No adenopathy, no masses. RESPIRATORY: Airway patent, respirations nonlabored. Clear to auscultation bilaterally, no rales, rhonchi, wheezing. 4L NC CARDIOVASCULAR: Regular rate and rhythm without murmurs, rubs, or gallops. Peripheral pulses 2+ and equal bilaterally. ABDOMINAL: Soft, nontender, nondistended, no hepatosplenomegaly. Normoactive BS. MUSCULOSKELETAL: Moves all extremities. Strength/ROM intact without gross deformities. SKIN: Warm, dry, normal color. No rashes. NEURO: A&O X3. Speech clear. Cranial nerves II-XII intact. No ataxic movements. Reported diplopia when pt holds his own finger in front of his face. Denies diplopia when he looks at other objects. PSYCHIATRIC: Appropriate mood and affect. Normal interaction. Course Vital Signs Vital signs: Vital Signs Temperature 36.4 C 02/16/25 14:55 Pulse Rate 83 02/16/25 14:55 Respiratory Rate 20 02/16/25 14:55 Blood Pressure 85/40 L 02/16/25 14:55 Pulse Oximetry 85 L 02/16/25 14:55 Oxygen Delivery Room Air 02/16/25 14:55 Temperature 36.4 C 02/16/25 14:55 Pulse Rate 70 02/16/25 17:18 Respiratory Rate 14 02/16/25 17:18 Blood Pressure 111/74 02/16/25 17:18 Pulse Oximetry 97 02/16/25 17:18 Oxygen Delivery Nasal Cannula 02/16/25 15:03 Oxygen Flow Rate 4 02/16/25 15:03 MDM - SOB/Dyspnea MDM Narrative Medical decision making narrative: Patient is a 74-year-old male who presents to the ER with complaints of dizziness, decreased balance, diplopia, and recent falls. He reports he was recently diagnosed with lung cancer and has been receiving chemo and radiation for the past 4 weeks. At the time of examination patient endorses increased back pain from lying on his back through radiation. He reports he has had bilateral upper extremity arm numbness that radiates down to his fingertips. He reports he is usually on 3-4 L nasal cannula. Labs Ordered: CBC, CMP, PTT, INR, troponin Imaging Ordered: CT brain, chest x-ray Medications Ordered: Results: Chest x-ray indicates Stable radiographic evaluation of the chest, demonstrating a right apical lung mass, as detailed above. CT brain indicates The ventricles are enlarged. The dilatation of the ventricles is proportional to the degree of sulcal prominence, not uncommon in the senescent brain. Decreased attenuation is identified within the periventricular white matter, likely secondary to microvascular ischemic disease, in a patient of this age. There is no mass, mass effect or midline shift. There is no abnormal extra-axial fluid collection or intracranial hemorrhage. Visualized paranasal sinuses are clear. The mastoid air cells are well aerated. No acute displaced fractures within the overlying cranium. Diagnosis: Dehydration, chemotherapy related side effects Consults: 1800- call placed to pt's radiology oncologist Spoke with both patient's radiology oncologist, Dr. Rose, and the radiology oncologist on-call, who were both in agreement with plan for patient to be discharged home. He will be seen by medical oncology tomorrow morning when he receives his chemotherapy and radiation. His blood work will be redrawn at that time also. Dr. Rose was reassured that nothing showed up on pt's brain CT scan. Patient Education/Shared MDM: Results of lab work and imaging shared with patient and his family. It is unclear why he has been experiencing these increased symptoms of dizziness or instability on his feet, but his symptoms have resolved at the time of examination. Pt reports I think I always have double vision when there's a finger held up in front of me. He denies diplopia when looking at any other objects. Pt's symptoms may be related to his chemotherapy and radiation treatment. Pt endorses improvement of his pain following pain medication administration. It was explained to pt that he MUST keep his oxygen on at all times. He reports he was wearing his oxygen last night when he felt his balance was off. Patient also strongly advised to maintain hydration status upon discharge and keep his appointment for tomorrow morning. He will be discharged home with no new prescriptions. Strict return precautions provided. Pt was advised to return to the ER with ANY new mental status changes. Patient and his verbalized understanding and are in agreement with plan. Vital signs stable at time of discharge. All questions answered. Differential Diagnosis Differential diagnosis: Likely other (Brain mass, midline shift, TIA, stroke- like symptoms) Lab Data Attestation: I reviewed the patient's lab results. 02/16/25 15:46 02/16/25 15:46 Labs: Lab Results 02/16/25 02/16/25 Range/Units 15:19 15:46 WBC 11.2 H (4.5-10.0) K/mm3 RBC 3.25 L (4.6-6.20) M/mm3 Hgb 8.9 L (14.0-18.0) g/dL Hct 30.0 L (42.0-52.0) % MCV 92.3 (80-100) fl MCH 27.4 (26-34) pg MCHC 29.7 L (32-36) g/dl RDW 15.7 H (11.5-14.5) % Plt Count 316 (150-375) k/mm3 MPV 10.0 (7.4-10.4) fl Immature Gran % (Auto) 1.3 H (0-0.5) % Neut % (Auto) 84.8 H (45.5-73.1) % Lymph % (Auto) 6.7 L (18.3-44.2) % Vermilion % (Auto) 4.2 (2.6-8.5) % Eos % (Auto) 2.6 (0-4.4) % Baso % (Auto) 0.4 (0.2-1.2) % Lymph # (Auto) 0.75 L (0.9-3.2) K/mm3 Vermilion # (Auto) 0.5 (0.1-0.6) K/mm3 Eos # (Auto) 0.3 (0-0.3) K/mm3 Baso # (Auto) 0.1 (0.0-0.1) K/mm3 Abs Immat Gran (auto) 0.14 H (0.00-0.031) K/mm3 Absolute Neuts (auto) 9.5 H (1.3-6.7) K/mm3 Absolute Nucleated RBC 0.000 (0.0-0.012) K/mm3 Band Neutrophils % Not Reportable Nucleated RBC % 0.0 (0.0-0.2) % Platelet Estimate Adequate (Adequate) Hypochromasia 1+ Ovalocytes 1+ Schistocytes None seen PT 14.4 (11.1-14.7) Seconds INR 1.1 APTT 32.1 (22.3-36.8) Seconds Sodium 136 L (137-145) mmol/L Potassium 4.6 (3.4-5.0) mmol/L Chloride 98 (98-107) mmol/L Carbon Dioxide 33 H (22-30) mmol/L Anion Gap 5 (4-12) mmol/L BUN 39 H (9-20) mg/dL Creatinine 0.74 (0.7-1.3) mg/dL Estim Creat Clear Calc Not Reportable Estimated GFR > 60 (59 - ) Glucose 118 H (65-110) mg/dL POC Capillary Glucose 116 H (65-105) mg/dl Calcium 8.4 (8.4-10.2) mg/dL Total Bilirubin 0.5 (0.2-1.3) mg/dL AST 22 (17-59) U/L ALT 14 (6-50) U/L Alkaline Phosphatase 79 (38-126) U/L Troponin I < 0.012 (0.000-0.034) ng/mL Total Protein 6.0 L (6.3-8.2) g/dL Albumin 3.5 (3.5-5.1) g/dL Imaging Data Attestation: I personally reviewed and interpreted this imaging study as follows: Radiologist's impression: Impressions Head CT 02/16/25 16:33 Impression: No acute intracranial hemorrhage or suspicious mass effect. Chest X-Ray 02/16/25 16:50 IMPRESSION: Stable radiographic evaluation of the chest, demonstrating a right apical lung mass, as detailed above. Discharge Plan Discharge Clinical Impression: Dehydration, Numbness and tingling of both upper extremities, Non-small cell carcinoma of right lung, Weakness generalized, Diplopia COPD (chronic obstructive pulmonary disease) Qualifiers: COPD type: chronic bronchitis Chronic bronchitis type: unspecified Qualified Code(s): J42 - Unspecified chronic bronchitis Patient Disposition: Home Condition: Guarded Prognosis Instructions: Antibiotic Form Additional Instructions: You MUST return to the ER with any mental status or neurological changes. Follow-up with medical oncology tomorrow as planned. Take all medications as prescribed, including regularly scheduled medications. Please remember to drink lots of water. Patient Language: [place] Citizen Prescriptions: No Action hydrocodone-acetaminophen 10-325 mg tablet 1 tablet PO Q4H lorazepam 2 mg tablet 2 mg PO BID PRN (Reason: Anxiety) Qty: 60 2RF phenelzine 15 mg tablet 15 mg PO TID Qty: 270 1RF Follow-up/Referrals: Delia Rose MD [Primary Care Provider] - Time of Disposition: 21:03
--- NOTE | 2025-02-16 17:51 | PC.NURSE ---
Patient states he does not need pain medication at this time. He states he will wait. RN will continue to monitor pain.
--- OUTSIDE RECORDS SUMMARY | 2025-02-16 18:16 | XMS_ITS | Clinical Summary ---
Author Organization [facility] Address [address] [place] [address] Care Team Providers Care Insurance Sales Professional Name Role Phone Unavailable Primary Care Provider Unavailabl e Allergies No known active allergies Medications LORazepam (ATIVAN) 2 mg tablet 1 Active phenelzine (NardiL) 15 mg tablet Take 15 mg by mouth 3 times daily. Active Trelegy Ellipta 100-62.5-25 mcg Disk with Device Take 1 Puff by inhalation daily. 5 Active naloxone (NARCAN) 4 mg/spray Bowie, Non-Aerosol EMERGENCY USE ONLY: Administer 1 spray [...] 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, Abstract 02/10/2025 Orders Only [facility] Oncology [facility] [address] [place] [address] Nba Ponce MD Malignant neoplasm of upper lobe of right lung (CMS/HCC) (Primary Dx) 02/09/2025 External Device Data 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, Abstract 02/08/2025 Refill [facility] Oncology and Hematology [facility] [address] [place] [phone] Nba Ponce MD Malignant neoplasm of upper lobe of right lung (CMS/HCC) 02/02/2025 Refill [facility] Oncology and Hematology [facility] [address] [place] [phone] Nba Ponce MD Malignant neoplasm of upper lobe of right lung (CMS/HCC) (Primary Dx) 01/26/2025 10:00 AM CDT Office Visit [facility] Oncology and Hematology [facility] [address] [place] [phone] Nba Ponce MD Malignant neoplasm of upper lobe of right lung (CMS/HCC) (Primary Dx) 01/19/2025 External Device Data 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, Abstract 01/19/2025 External Device Data 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, Abstract 01/19/2025 External Device Data 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, Abstract 01/13/2025 11:00 AM CDT Office Visit [facility] Oncology and Hematology [place] [address] [place] [phone] Luna Birmingham MD Malignant neoplasm of upper [...] on file 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 Gender Identity Not on file Sexual Orientation [...] Description 02/24/2025 8:30 AM CDT Office Visit [facility] Oncology and Hematology - [place] [address] [facility] [address] [place] [address] Nba Ponce MD [address] [place] [address] Health Maintenance Due Date Last [...] ORDERABLES Final Resu lt [facility] [address], [address] [place] [address], [facility] [address], [address] [place] [address] * [facility] (01/26/2025 12:00 AM CDT) Reason for Study To identify mutations relevant to patient's cancer. 02/04/2025 4:34 PM CDT [facility] Genetic Diseases Assessed Cancer 02/04/2025 4:34 PM CDT [facility] Description of Ranges of DNA Sequences Examined 523 gene liquid biopsy 02/04/2025 4:34 PM CDT [facility] Overall Interpretation positive 02/04/2025 4:34 PM CDT [facility] [email or web address] [id number] [email or web address] 02/04/2025 4:34 PM CDT [facility] Comment:[facility] link Low Coverage Regions CARM1, CUL4A, DNMT1, FANCC, FGFR3, GNA11, IMPDH1, KMT2A, MAPK1, MAPK3, MSH3, NFE2L2, NOTCH2, PHLPP2, PIK3R2, PTPRT, RAD51C, RECQL4, RHEB, RHOA, RXRA, SDHAF2, TERT, TGFBR1, TP53, TP63, XBP1, ZNRF3 02/04/2025 4:34 PM CDT [facility] Therapy Count 1 02/04/2025 4:34 PM CDT [facility]: Potential Therapy 1 Gene: [id number]^CHEK2^HGNC Variant: p.R519* Match Type: snvIndel Match Type Description: CHEK2 p.R519* Agent: Olaparib Drug Class: PARP Inhibitor Tissue: Prostate Cancer Association: Response Evidence Status: Consensus Evidence ID: NCCN [id number] Variant: Omie-tf-ngxeiequ Label: FDA Off Label FDA Approved?: Yes On label?: No 02/04/2025 4:34 PM CDT [facility] Trial Count 3 02/04/2025 4:34 PM CDT [facility]: Clinical Trial Match 1 Clinical Trial NCT ID: [id number] Clinical Trial Title: A Study of PARG Inhibitor [id number] in Participants With Advanced Solid Tumors Clinical Trial URL: [email or web address] Clinical Phase: Phase 1 Clinical Trial Matches: CHEK2 p.R519* mutation Clinical Trial Distance and Location: [address] [place], [place] 02/04/2025 4:34 PM CDT [facility]: Clinical Trial Match 2 Clinical Trial NCT ID: [id number] Clinical Trial Title: TAPUR: Testing the Use of Food and Drug Administration (FDA) Approved Drugs That Target a Specific Abnormality in a Tumor Gene in People With Advanced Stage Cancer Clinical Trial URL: [email or web address] Clinical Phase: Phase 2 Clinical Trial Matches: CHEK2 p.R519* mutation Clinical Trial Distance and Location: [address] [place], [place] 02/04/2025 4:34 PM CDT [facility]: Clinical Trial Match 3 Clinical Trial NCT ID: [id number] Clinical Trial Title: Study Of ATRN-119 In Patients With Advanced Solid Tumors Clinical Trial URL: [email or web address] Clinical Phase: Phase 1/Phase 2 Clinical Trial Matches: CHEK2 p.R519* mutation, TP53 p.R342* mutation Clinical Trial Distance and Location: [address] [place], [place] 02/04/2025 4:34 PM CDT [facility] Tumor Mutational Spickard 5.0 m/MB 02/04/2025 4:34 PM CDT [facility] Microsatellite Instability Note MSI-High not detected 02/04/2025 4:34 PM CDT [facility] Blood specimen (specimen) 01/26/2025 01/28/2025 10:55 PM CDT Narrative This result has genomic variants that were not included in this document. Nba Ponce MD MOLECULAR ORDERABLES Final Resu lt [facility] [address] [place] [address], [facility] [address] [place] [address] from Last 3 Months Insurance GENERIC [place] [address]
--- OUTSIDE RECORDS SUMMARY | 2025-02-16 18:16 | XMS_ITS | Continuity of Care Document ---
Author Name [facility] Organization [facility] Care Team Providers Care Hand Ii Cutter Name Role Phone [facility] Unavailable Unavailable Problems Combined list of problems from Department of Defense and [facility] Affairs facilities. It does not include entries that were removed or entered in error. 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 [facility] Folliculitis Active 1 Condition [facility] Malignant neoplasm of skin Active 1 Condition [facility] Melanoma of Skin Active 1 Condition [facility] Anxiety Disorder NOS Active 2 Condition [facility] Anxiety Disorder * (ICD-9-CM 300.00) Active Condition [facility] Anxiety Disorder NOS Active Condition [facility] Basal cell carcinoma of skin Active Condition [facility] Depression * (ICD-9-CM 300.4/311.) Active Condition [facility] Depression * (ICD-9-CM 311./300.4) Active Condition [facility] Dysthymic Disorder (ICD-9-CM 300.4) Active Condition [facility] Elevated PSA Active Condition [facility] Head and Neck Cancer, Unknown Site Active Condition Dec 21, 2008 Entered By: TIANNA LEBLANC Comment: has received radiation post neck surgeryDec 21, 2008 Entered By: TIANNA LEBLANC Comment: salivary glands goneDec 21, 2009 Entered By: TIANNA LEBLANC Comment: SCC, necklymph nodes, left nipple,2001Dec 21, 2009 Entered By: [facility]IAN[facility]ANC [facility] Entered By: TIANNA LEBLANC Comment: records scanned [facility] Hyperkalemia * (ICD-9-CM 276.7) Active Condition [facility] Impacted Cerumen Active Condition [facility] Thong [facility] Internal hemorrhoids without mention of complication (ICD-9-CM 455.0) Active Condition [facility] Low Back Pain Active Condition [facility] Major Depressive Disorder, Recurrent Active Condition [facility] Major Depressive Disorder, Recurrent, Severe, without Psychotic Features (ICD-9- Active Condition [facility] Melanoma of Skin Active Condition Dec 21, 2008 Entered By: TIANNA LEBLANC Comment: Dr Day, several removed [facility] Memory loss Active Condition [facility] Mood Disorder NOS Active Condition [facility] Nicotine Dependence Active Condition Dec 21, 2009 Entered By: TIANNA LEBLANC Comment: declines treatment [facility] PANIC D/O W/0 AGORA Active Condition [facility] Personal History of Colonic Polyps Active Condition Nov 08, 2010 Entered By: ROMAINE ROBLES Comment: Due for repeat colonoscopy 08/2011 - 09/2011May 2011 Entered By: ANNMARIE GUARDADO Comment: repeat colonoscopy due in 08/2012 [facility] Prostate cancer Active Condition [facility] Sensory neuropathy Active Condition [facility] Tobacco use Active Condition [facility] Tobacco Use * (ICD-9-CM 305.1) Active Condition [facility] Vitamin D deficiency (SNOMED CT [id number]) Active Condition [facility] Medications Combined list of outpatient medications [...] DAY ORAL ACTIVE CAR FIGUEREDO MD [address] [facility] Immunizations Combined list of available immunizations from the Department of [facility] and Veterans Affairs facilities. Immunization Series Date Given Administered By Site Reaction Lot Number CVX Code Drug Food Quality Technician Status Comments Source COVID-19 (MODERNA), MRNA, LNP-S, PF, 100 MCG/0.5 ML DOSE 2 2020 207 complet ed MOD; [id number]; 1 [facility] COVID-19 (MODERNA), MRNA, LNP-S, PF, 100 MCG/0.5 ML DOSE 1 2020 207 complet ed MOD; [id number]; 1 [facility] TDAP 2012 115 complet ed Left Deltoid [facility] Procedures Combined list of: 1) Procedures from Department of Veterans Affairs facilities [facility], not all VA non-surgical procedures are included; 2) All procedures from the Department of Defense facilities. Procedure Procedure Type Code Date Perfomer Comments Sourc e COLLECTION OF VENOUS BLOOD B Y VENIPUNCTURE 11/22/2005 [facility] COLLECTION OF VENOUS BLOOD B Y VENIPUNCTURE 05/16/2005 [facility] Social History Combined list of available smoking, tobacco, and other social history from Department of Defense and Veterans Affairs facilities. Social History Type Response Date Comment Sourc e Tobacco smoking status NHIS VA-TOBACCO USE WI 30 MIN OF WAKEUP 01/03/[address] [facility] History of tobacco use VA-TOBACCO USE 30 YEARS OR MORE 01/03/[address] 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 History of tobacco use VA-TOBACCO USE [place] 30 MIN OF WAKEUP 02/24/[address] [facility] History of tobacco use TOBACCO USER OFFERED MEDS 11/27/2017 [facility] History of tobacco use QUIT TOBACCO >7 YEARS AGO 11/30/2014 [facility] History of tobacco use CURRENT TOBACCO USER 01/04/2014 [facility] History of tobacco use CURRENT TOBACCO USER 01/20/2013 [facility] History of tobacco use CURRENT TOBACCO USER 06/25/2012 [facility] History of tobacco use CURRENT TOBACCO USER 07/19/2011 [facility] History of tobacco use CURRENT TOBACCO USER 07/17/2010 [facility] History of tobacco use CURRENT TOBACCO USER 12/20/2009 [facility] History of tobacco use CURRENT TOBACCO USER 12/21/2008 [facility] History of tobacco use CURRENT TOBACCO USER 10/28/2006 [facility] History of tobacco use PT REFUSED SMOKING CESSATION CLASSES 02/04/2004 [facility] History of tobacco use CURRENT TOBACCO USER 07/03/2001 [facility] This section is an empty social history section. [employer]
== END 2025-02-16 21:27 | disposition home or self-care (01) ==
PROVIDERS: Emergency Medicine; Emergency Provider Registered Nurse; PCP Radiology Radiation Oncology
DX: E86.0 Dehydration (principal); R53.1 Weakness; R20.2 Paresthesia of skin; R20.0 Anesthesia of skin; H53.2 Diplopia; C34.91 Malignant neoplasm of unspecified part of right bronchus or lung; J44.9 Chronic obstructive pulmonary disease, unspecified; E78.5 Hyperlipidemia, unspecified; K21.9 Gastro-esophageal reflux disease without esophagitis; M19.90 Unspecified osteoarthritis, unspecified site; F32.A Depression, unspecified; F41.9 Anxiety disorder, unspecified; Z99.81 Dependence on supplemental oxygen; Z85.46 Personal history of malignant neoplasm of prostate; Z92.3 Personal history of irradiation; Z92.21 Personal history of antineoplastic chemotherapy; Z85.818 Personal history of malignant neoplasm of other sites of lip, oral cavity, and pharynx; Z79.60 Long term (current) use of unspecified immunomodulators and immunosuppressants; Z85.820 Personal history of malignant melanoma of skin; Z87.891 Personal history of nicotine dependence; Z79.899 Other long term (current) drug therapy
CPT/HCPCS: 36415; 70450; 71045; 80053; 82948; 84484; 85025; 85610; 85730; 93005; 96360; 99284; J7030

== ENCOUNTER 2025-03-07 19:11 | Emergency (ER) | payer MEDICARE, SELFPAY ==
--- OUTSIDE RECORDS SUMMARY | 2025-03-07 19:13 | XMS_ITS | Clinical Summary ---
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
--- OUTSIDE RECORDS SUMMARY | 2025-03-07 19:13 | XMS_ITS | Continuity of Care Document ---
Author Name [facility] Organization [facility] Care Team Providers Care Consumer Loan Underwriter Name Role Phone [facility] Unavailable Unavailable Problems Combined list of problems from Department of Defense and [facility] Affairs facilities. It does not include entries that were removed or entered in error. 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 Depression * (ICD-9-CM 300.4/311.) Active Condition [facility] Depression * (ICD-9-CM 311./300.4) Active Condition [facility] Dysthymic Disorder (ICD-9-CM 300.4) Active Condition [facility] Elevated PSA Active Condition [facility] Head and Neck Cancer, Unknown Site Active Condition Dec 21, 2008 Entered By: TIANNA LEBLANC Comment: has received radiation post neck surgeryDec 21, 2008 Entered By: TIANNA LEBLANC Comment: salivary glands goneDec 21, 2009 Entered By: TIANNA LEBLANC Comment: SCC, necklymph nodes, left nipple,2001Dec 21, 2009 Entered By: [facility]BLANC [facility] Entered By: TIANNA LEBLANC Comment: records scanned [facility] Hyperkalemia * (ICD-9-CM 276.7) Active Condition [facility] Impacted Cerumen Active Condition [facility] Thong [facility] Internal hemorrhoids without mention of complication (ICD-9-CM 455.0) Active Condition [facility] Low Back Pain Active Condition [facility] Major Depressive Disorder, Recurrent Active Condition [facility] Major Depressive Disorder, Recurrent, Severe, without Psychotic Features (ICD-9- Active Condition [facility] Melanoma of Skin Active Condition Dec 21, 2008 Entered By: TIANNA LEBLANC Comment: Dr Day, several removed [facility] Memory loss Active Condition [facility] Mood Disorder NOS Active Condition [facility] Nicotine Dependence Active Condition Dec 21, 2009 Entered By: TIANNA LEBLANC Comment: declines treatment [facility] PANIC D/O W/0 AGORA Active Condition [facility] Personal History of Colonic Polyps Active Condition Nov 08, 2010 Entered By: ROMAINE ROBLES Comment: Due for repeat colonoscopy 08/2011 - 09/2011May 2011 Entered By: ANNMARIE GUARDADO Comment: repeat colonoscopy due in 08/2012 [facility] Prostate cancer Active Condition [facility] Sensory neuropathy Active Condition [facility] Tobacco use Active Condition [facility] Tobacco Use * (ICD-9-CM 305.1) Active Condition [facility] Vitamin D deficiency (SNOMED CT 70189474) Active Condition [facility] Medications Combined list of outpatient [...] of available immunizations from the Department of [facility] and Veterans Affairs facilities. Immunization Series Date Given Administered By Site Reaction Lot Number CVX Code Drug Ornamental Iron Worker Helper Status Comments Source COVID-19 (MODERNA), MRNA, LNP-S, PF, 100 MCG/0.5 ML DOSE 2 2020 207 complet ed MOD; [id number]; 1 [facility] COVID-19 (MODERNA), MRNA, LNP-S, PF, 100 MCG/0.5 ML DOSE 1 2020 207 complet ed MOD; [id number]; 1 [facility] TDAP 2012 115 complet ed Left Deltoid [facility] Procedures Combined list of: 1) Procedures from Department of Veterans Affairs facilities [facility], not all VA non-surgical procedures are included; 2) All procedures from the Department of Defense facilities. Procedure Procedure Type Code Date Perfomer Comments Sourc e COLLECTION OF VENOUS BLOOD B Y VENIPUNCTURE 11/22/2005 [facility] COLLECTION OF VENOUS BLOOD B Y VENIPUNCTURE 05/16/2005 [facility] Social History Combined list of available smoking, tobacco, and other social history from Department of Defense and Veterans Affairs facilities. Social History Type Response Date Comment Sourc e Tobacco smoking status NHIS VA-TOBACCO USE WI 30 MIN OF WAKEUP 01/03/[address] 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 History of tobacco use CURRENT TOBACCO USER 01/20/2013 [facility] History of tobacco use CURRENT TOBACCO USER 06/25/2012 Demetrio PRISCILLA [facility] History of tobacco use CURRENT TOBACCO USER 07/19/2011 [facility] Heranndez [facility] History of tobacco use CURRENT TOBACCO USER 07/17/2010 [facility] History of tobacco use CURRENT TOBACCO USER 12/20/2009 [facility] History of tobacco use CURRENT TOBACCO USER 12/21/[address] [facility] [facility] History of tobacco use CURRENT TOBACCO USER 10/28/2006 [facility] History of tobacco use PT REFUSED SMOKING CESSATION CLASSES 02/04/2004 [facility] History of tobacco use CURRENT TOBACCO USER 07/03/2001 [facility] This section is an empty social history section. DoD
--- OUTSIDE RECORDS SUMMARY | 2025-03-07 19:13 | XMS_ITS | Clinical Summary ---
Author Organization [facility] Address [address] [place] [address] Care Team Providers Care Assurance Analyst Name Role Phone Unavailable Primary Care Provider Unavailabl e Allergies No known active allergies Medications LORazepam (ATIVAN) 2 mg tablet 1 Active phenelzine (NardiL) 15 mg tablet Take 15 mg by mouth 3 times daily. Active Trelegy Ellipta 100-62.5-25 mcg Disk with Device Take 1 Puff by inhalation daily. 5 Active naloxone (NARCAN) 4 mg/spray [place], Non-Aerosol EMERGENCY USE ONLY: Administer 1 spray [...] or vomiting 30 Tablet 1 5 Active dexAMETHasone (DECADRON) 4 mg tablet Take 1 Tablet (4 mg) by mouth 2 times daily. 60 Tablet 5 Active HYDROcodone-ac etaminophen (NORCO) 10-325 mg TabletIndicati ons:Malignant neoplasm of upper lobe of right lung (CMS/HCC) Take 1 Tablet by mouth every 4 hours as needed for Pain, Moderate. Max Daily Amount: 6 Tablets 120 Tablet 5 Active HYDROcodone-ac etaminophen (NORCO) 10-325 mg TabletIndicati ons:Malignant neoplasm of upper lobe of right lung (CMS/HCC) Take 1 Tablet by mouth every 4 hours as needed for Pain, Moderate. Max Daily Amount: 6 Tablets 60 Tablet 5 02/09/20 25 Discontin ued(Reord er) HYDROcodone-ac etaminophen (NORCO) 10-325 mg TabletIndicati ons:Malignant neoplasm of upper lobe of right lung (CMS/HCC) Take 1 Tablet by mouth every 4 hours as needed for Pain, Moderate. Max Daily Amount: 6 Tablets 60 Tablet 5 02/18/20 25 Discontin ued(Reord er) HYDROcodone-ac etaminophen (NORCO) 10-325 mg TabletIndicati ons:Malignant neoplasm of upper lobe of right lung (CMS/HCC) Take 1 Tablet by mouth every 4 hours as needed for Pain, Moderate. Max Daily Amount: 6 Tablets 60 Tablet 5 03/01/20 25 Discontin ued(Reord er) Active Problems No known active problems Encounters Date Type Department Care Team Description 03/03/2025 Orders Only [facility] Oncology and Hematology - [place] [address] [place] [address] Nba Ponce MD 03/01/2025 Refill [facility]ology - [place] [address] [place] [address] Nba Ponce MD Malignant neoplasm of upper lobe of right lung (CMS/HCC) 02/26/2025 Orders Only [facility] On[facility] and Hematology - [place] [address] [place] [address] Nba Ponce MD 02/24/2025 Orders Only [facility] and Hematology - [place] [address] [place] [address] Nba Ponce MD 02/23/2025 9:00 AM CDT Office Visit [facility]ology - [place] [address] [place] [phone] Nba Ponce MD Malignant neoplasm of upper lobe of right lung (CMS/HCC) (Primary Dx) 02/22/2025 Orders Only [facility] On[facility] and Hematology [facility] [address] [place] [phone] Nba Ponce MD Malignant neoplasm of upper lobe of right lung (CMS/HCC) 02/17/2025 Abstract [facility] H[facility]ology [facility] [address] [place] [phone] Nba Ponce MD 02/17/2025 Refill [facility] On[facility] and Hematology [facility] [address] [place] [phone] Nba Ponce MD Malignant neoplasm of upper lobe of right lung (CMS/HCC) 02/17/2025 Telephone [facility] On[facility] and Hematology [facility] [address] Nba Ponce MD Hold Chemotherapy/Lab Results 02/11/2025 External Device Data 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, Abstract 02/10/2025 External Device Data 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, Abstract 02/10/2025 Orders Only [facility] and Hematology [facility] [address] [place] [phone] Nba Ponce MD Malignant neoplasm of upper lobe of right lung (CMS/HCC) (Primary Dx) 02/09/2025 External Device Data 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, Abstract 02/08/2025 Refill [facility] On[facility] Hematology [facility] [address] [place] [address] Nba Ponce MD Malignant neoplasm of upper lobe of right lung (CMS/HCC) 02/02/2025 Refill [facility] H[facility]ology [facility] [address] [place] [address] Nba Ponce MD Malignant neoplasm of upper lobe of right lung (CMS/HCC) (Primary Dx) 01/26/2025 10:00 AM CDT Office Visit [facility] [address] [place] [address] Nba Ponce MD Malignant neoplasm of upper lobe of right lung (CMS/HCC) (Primary Dx) 01/19/2025 External Device Data 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, Abstract 01/19/2025 External Device Data 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, Abstract 01/19/2025 External Device Data 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, Abstract 01/13/2025 11:00 AM CDT Office Visit [facility] [address] [place] [address] Luna Birmingham MD Malignant neoplasm of upper [...] on file 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 Gender Identity Not on file Sexual Orientation Not on file Last Filed Vital Signs Vital Sign Reading Time Taken Comments Blood Pressure 83/60 02/23/2025 9:17 AM CDT Pulse 80 02/23/2025 9:14 AM CDT Temperature 36.8 C (98.3 F) 02/23/2025 9:14 AM CDT Respiratory Rate 14 02/23/2025 9:14 AM CDT Oxygen Saturation 81% 02/23/2025 9:14 AM CDT Inhaled Oxygen Concentration - - Weight 68 kg (150 lb) 02/23/2025 9:14 AM CDT Height 182.9 cm (6') 01/13/2025 10:51 AM CDT Body Mass Index 20.34 01/13/2025 10:51 AM CDT Plan of Treatment Upcoming Encounters Date Type Department Care Team (Late st Contact Info) Description 03/08/2025 Orders Only [facility] On[facility] and Hematology [facility] [address] [place] [address] [place] [address] [place] [address] [employer] [address] [place] [phone] Malignant neoplasm of upper lobe of right lung (CMS/HCC) 03/17/2025 9:45 AM CDT Office Visit [facility] Oncology [facility] [address] [place] [address] Nba Ponce MD [address] [facility] [address] [place] [phone] Health Maintenance Due Date Last Done Comments PNEUMOCOCCAL VACCINE 50+ YEA RS (1 of 2 - PCV) 1967 ZOSTER VACCINE (1 of 2) 1998 DTAP/TDAP/TD VACCINES (2 - Td or Tdap) 01/20/2023 RSV VACCINE (60+ or ) (1 - 1-dose 75+ series) 2023 INFLUENZA VACCINE (#1) 2024 COVID-19 Vaccine (3 - season) 05/24/202411/2020, 11/27/2020 Procedures Procedure Name Priority Date/Time Associated Diagnosis Comments BASIC METABOLIC PANEL Routine 03/03/2025 12:51 PM CDT COMPREHENSIVE METABOLIC PANEL Routine 03/03/2025 12:45 PM CDT CBC WITH DIFFERENTIAL Routine 02/24/2025 1:49 PM CDT COMPREHENSIVE METABOLIC PANEL Routine 02/23/2025 11:33 AM CDT BASIC METABOLIC PANEL Routine 02/23/2025 8:01 AM CDT CBC WITH DIFFERENTIAL Routine 02/23/2025 7:51 AM CDT BASIC METABOLIC PANEL Routine 02/10/2025 10:30 AM CDT COMPREHENSIVE METABOLIC PANEL Routine 02/10/2025 10:28 AM CDT [facility] DNA AND RNA Routine 01/26/2025 10:59 AM CDT Malignant neoplasm of upper lobe of right lung (CMS/HCC) [facility] NORMAL BLOOD Routine 10:59 AM CDT Malignant neoplasm of upper lobe of right lung (CMS/HCC) [facility]F Routine 01/26/2025 12:00 AM CDT Malignant neoplasm of upper lobe of right lung (CMS/HCC) from Last 3 Months Results * BASIC METABOLIC PANEL (03/03/2025 12:51 PM CDT) Only the most recent of3 resultswithin the time period is included. Blood us Nba Ponce MD CHEMISTRY ORDERABLES Final Resu lt * COMPREHENSIVE METABOLIC PANEL (03/03/2025 12:45 PM CDT) Only the most recent of3 resultswithin the time period is included. Blood us Nba Ponce MD CHEMISTRY ORDERABLES Final Resu lt * CBC WITH DIFFERENTIAL (02/24/2025 1:49 PM CDT) Only the most recent of2 resultswithin the time period is included. Blood us Nba Ponce MD HEMATOLOGY ORDERABLES Final Res ult * [facility] NORMAL BLOOD (01/26/2025 10:59 AM CDT) [facility] 01/26/2025 11:01 PM CDT [facility] Comment:See NGS Report for R esults. Blood specimen (specimen) 01/26/2025 10:59 AM CDT 01/26/2025 11:00 AM CDT Nba Ponce MD MOLECULAR ORDERABLES Final Resu lt [facility] [address], [address] [place] [address], [facility] [address] [place] [address] * [facility]F (01/26/2025 12:00 AM CDT) Reason for Study To identify mutations relevant to patient's cancer. 02/04/2025 4:34 PM CDT [facility] Genetic Diseases Assessed Cancer 02/04/2025 4:34 PM CDT [facility] Description of Ranges of DNA Sequences Examined 523 gene liquid biopsy 02/04/2025 4:34 PM CDT [facility] Overall Interpretation positive 02/04/2025 4:34 PM CDT [facility] [email or web address] [id number] 02/04/2025 4:34 PM CDT [facility] Comment:[facility] link Low Coverage Regions CARM1, CUL4A, DNMT1, FANCC, FGFR3, GNA11, IMPDH1, KMT2A, MAPK1, MAPK3, MSH3, NFE2L2, NOTCH2, PHLPP2, PIK3R2, PTPRT, RAD51C, RECQL4, RHEB, RHOA, RXRA, SDHAF2, TERT, TGFBR1, TP53, TP63, XBP1, ZNRF3 02/04/2025 4:34 PM CDT [facility] Therapy Count 1 02/04/2025 4:34 PM CDT [facility]: Potential Therapy 1 Gene: [id number]^CHEK2^HGNC Variant: p.R519* Match Type: snvIndel Match Type Description: CHEK2 p.R519* Agent: Olaparib Drug Class: PARP Inhibitor Tissue: Prostate Cancer Association: Response Evidence Status: Consensus Evidence ID: NCCN [id number] Variant: [id number] Label: FDA Off Label FDA Approved?: Yes On label?: No 02/04/2025 4:34 PM CDT [facility] Trial Count 3 02/04/2025 4:34 PM CDT [facility]: Clinical Trial Match 1 Clinical Trial NCT ID: [id number] Clinical Trial Title: A Study of PARG Inhibitor [id number] in Participants With Advanced Solid Tumors Clinical Trial URL: [email or web address] Clinical Phase: Phase 1 Clinical Trial Matches: CHEK2 p.R519* mutation Clinical Trial Distance and Location: [address] [place], [place] 02/04/2025 4:34 PM CDT [facility]: Clinical Trial Match 2 Clinical Trial NCT ID: [id number] Clinical Trial Title: TAPUR: Testing the Use of Food and Drug Administration (FDA) Approved Drugs That Target a Specific Abnormality in a Tumor Gene in People With Advanced Stage Cancer Clinical Trial URL: [email or web address] Clinical Phase: Phase 2 Clinical Trial Matches: CHEK2 p.R519* mutation Clinical Trial Distance and Location: [address] [place], [place] 02/04/2025 4:34 PM CDT [facility]: Clinical Trial Match 3 Clinical Trial NCT ID: [id number] Clinical Trial Title: Study Of ATRN-119 In Patients With Advanced Solid Tumors Clinical Trial URL: [email or web address] Clinical Phase: Phase 1/Phase 2 Clinical Trial Matches: CHEK2 p.R519* mutation, TP53 p.R342* mutation Clinical Trial Distance and Location: [address] [place], [place] 02/04/2025 4:34 PM CDT [facility] Tumor Mutational [place] 5.0 m/MB 02/04/2025 4:34 PM CDT [facility] Microsatellite Instability Note MSI-High not detected 02/04/2025 4:34 PM CDT [facility] Blood specimen (specimen) 01/26/2025 01/28/2025 10:55 PM CDT Narrative This result has genomic variants that were not included in this document. us Nba Ponce MD MOLECULAR ORDERABLES Final Resu lt [facility] [address], [address] [place] [address], [facility] [address], [address] [place] [address] from Last 3 Months Insurance GENERIC MEDICARE MANAGED CARE
--- OUTSIDE RECORDS SUMMARY | 2025-03-07 19:13 | XMS_ITS | Encounter Summary ---
Author Organization [facility] Address [address] [place] [address] Care Team Providers Care Extractor Puller Name Role Phone Unavailable Primary Care Provider Unavailabl e Encounter Details Date Type Department Care Team (Late Contact Info) Description 03/03/2025 Orders Only [facility] Oncology and Hematology [address] [place] [address] Nba Ponce MD [address] [employer] [address] [place] [phone] Social History Tobacco Use Types Packs/Day Years Used Date Smoking Tobacco: Never Smokeless Tobacco: Never Alcohol Use Standard Drinks/Week Comments Never 0 (1 standard drink = 0.6 oz pur e alcohol) Sex and Gender Information Value Date Recorded Sex Assigned at Not on file 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 Gender Identity Not on file Sexual Orientation Not on file documented as of this encounter Plan of Treatment Upcoming Encounters Date Type Department Care Team (Late Contact Info) Description 03/08/2025 Orders Only [facility] Oncology and Hematology - [place] [address] [place] [address] Nba Ponce MD [address] [employer] [address] [place] [address] Malignant neoplasm of upper lobe of right lung (CMS/HCC) 03/17/2025 9:45 AM CDT Office Visit [facility] Oncology and H[facility]ology [facility] [address] [place] [address] Nba Ponce MD [address] [facility] [address] [place] [phone] documented as of this encounter Procedures Procedure Name Priority Date/Time Associated Diagnosis Comments BASIC METABOLIC PANEL Routine 03/03/2025 12:51 PM CDT COMPREHENSIVE METABOLIC PANEL Routine 03/03/2025 12:45 PM CDT documented in this encounter Results * BASIC METABOLIC PANEL (03/03/2025 12:51 PM CDT) Blood us Nba Ponce MD CHEMISTRY ORDERABLES Final Resu lt * COMPREHENSIVE METABOLIC PANEL (03/03/2025 12:45 PM CDT) Blood us Nba Ponce MD CHEMISTRY ORDERABLES Final Resu lt documented in this encounter Visit Diagnoses Not on filedocumented in this encounter
[2025-03-07 19:18] VITALS: BP 109/74; PULSE 81; RESP 23; TEMP 36.4; O2SAT 94
[2025-03-07 19:58] VITALS: BP 96/64; PULSE 76; RESP 24; O2SAT 98
--- OUTSIDE RECORDS SUMMARY | 2025-03-07 20:06 | XMS_ITS | Clinical Summary ---
Author Organization [facility] Address [address] [place] [address] Care Team Providers Care Energy Scheduler Name Role Phone Unavailable Primary Care Provider Unavailabl e Allergies No known active allergies Medications LORazepam (ATIVAN) 2 mg tablet 1 Active phenelzine (NardiL) 15 mg tablet Take 15 mg by mouth 3 times daily. Active Trelegy Ellipta 100-62.5-25 mcg Disk with Device Take 1 Puff by inhalation daily. 5 Active naloxone (NARCAN) 4 mg/spray Moro, Non-Aerosol EMERGENCY USE ONLY: Administer 1 spray [...] Department Care Team Description 03/03/2025 Orders Only [facility] [address] [place] [address] Nba Ponce MD 03/01/2025 Refill [facility] [address] [place] [address] Nba Ponce MD Malignant neoplasm of upper lobe of right lung (CMS/HCC) 02/26/2025 Orders Only [facility] [address] [place] [address] Nba Ponce MD 02/24/2025 Orders Only [facility] [address] [place] [address] Nba Ponce MD 02/23/2025 9:00 AM CDT Office Visit [facility] [address] [place] [phone] Nba Ponce MD Malignant neoplasm of upper lobe of right lung (CMS/HCC) (Primary Dx) 02/22/2025 Orders Only [facility] [address] [place] [phone] Nba Ponce MD Malignant neoplasm of upper lobe of right lung (CMS/HCC) 02/17/2025 Abstract [facility] [address] [place] [phone] Nba Ponce MD 02/17/2025 Refill [facility] [address] [place] [phone] Nba Ponce MD Malignant neoplasm of upper lobe of right lung (CMS/HCC) 02/17/2025 Telephone [facility] [address] Nba Ponce MD Hold Chemotherapy/Lab Results 02/11/2025 External Device Data 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, Abstract 02/10/2025 External Device Data 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, Abstract 02/10/2025 Orders Only [facility] [address] [place] [phone] Nba Ponce MD Malignant neoplasm of upper lobe of right lung (CMS/HCC) (Primary Dx) 02/09/2025 External Device Data 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, Abstract 02/08/2025 Refill [facility] [address] [place] [address] Nba Ponce MD Malignant neoplasm of upper lobe of right lung (CMS/HCC) 02/02/2025 Refill [facility] [address] [place] [address] Nba Ponce MD Malignant neoplasm of upper lobe of right lung (CMS/HCC) (Primary Dx) 01/26/2025 10:00 AM CDT Office Visit [facility] [address] [place] [address] Nba Ponce MD Malignant neoplasm of upper lobe of right lung (CMS/HCC) (Primary Dx) 01/19/2025 External Device Data 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, Abstract 01/19/2025 External Device Data 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, Abstract 01/19/2025 External Device Data 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, Abstract 01/13/2025 11:00 AM CDT Office Visit [facility] [address] [place] [address] Luna Birmingham MD Malignant neoplasm of upper [...] on file 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 Gender Identity Not on file Sexual Orientation [...] st Contact Info) Description 03/08/2025 Orders Only [facility] [address] [place] [address] [place] [address] [place] [address] [employer] [address] [place] [phone] Malignant neoplasm of upper lobe of right lung (CMS/HCC) 03/17/2025 9:45 AM CDT Office Visit [facility] [address] [place] [address] Nba Ponce MD [address] [facility] [employer] [address] [place] [phone] Health Maintenance Due Date Last Done [...] ORDERABLES Final Resu lt [facility] [address] [place] [address], [facility] [address] [place] [address] * [facility] (01/26/2025 12:00 AM CDT) Reason for Study To identify mutations relevant to patient's cancer. 02/04/2025 4:34 PM CDT [facility] Genetic Diseases Assessed Cancer 02/04/2025 4:34 PM CDT [facility] Description of Ranges of DNA Sequences Examined 523 gene liquid biopsy 02/04/2025 4:34 PM CDT [facility] Overall Interpretation positive 02/04/2025 4:34 PM CDT [facility] [email or web address] [email or web address] 02/04/2025 4:34 PM CDT [facility] Comment:[facility] link Low Coverage Regions CARM1, CUL4A, DNMT1, FANCC, FGFR3, GNA11, IMPDH1, KMT2A, MAPK1, MAPK3, MSH3, NFE2L2, NOTCH2, PHLPP2, PIK3R2, PTPRT, RAD51C, RECQL4, RHEB, RHOA, RXRA, SDHAF2, TERT, TGFBR1, TP53, TP63, XBP1, ZNRF3 02/04/2025 4:34 PM CDT [facility] Therapy Count 1 02/04/2025 4:34 PM CDT [facility]us: Potential Therapy 1 Gene: 03064^CHEK2^HGNC Variant: p.R519* Match Type: snvIndel Match Type Description: CHEK2 p.R519* Agent: Olaparib Drug Class: PARP Inhibitor Tissue: Prostate Cancer Association: Response Evidence Status: Consensus Evidence ID: NCCN [id number] Variant: [id number] Label: FDA Off Label FDA Approved?: Yes On label?: No 02/04/2025 4:34 PM CDT [facility] Trial Count 3 02/04/2025 4:34 PM CDT [facility]: Clinical Trial Match 1 Clinical Trial NCT ID: [id number] Clinical Trial Title: A Study of PARG Inhibitor [id number] in Participants With Advanced Solid Tumors Clinical Trial URL: [email or web address].[email or web address] Clinical Phase: Phase 1 Clinical Trial Matches: CHEK2 p.R519* mutation Clinical Trial Distance and Location: [address] [place], [place] 02/04/2025 4:34 PM CDT [facility]us: Clinical Trial Match 2 Clinical Trial NCT ID: [id number] Clinical Trial Title: TAPUR: Testing the Use of Food and Drug Administration (FDA) Approved Drugs That Target a Specific Abnormality in a Tumor Gene in People With Advanced Stage Cancer Clinical Trial URL: [email or web address].gov/[email or web address] Clinical Phase: Phase 2 Clinical Trial Matches: CHEK2 p.R519* mutation Clinical Trial Distance and Location: [address] [place], [place] 02/04/2025 4:34 PM CDT [facility]us: Clinical Trial Match 3 Clinical Trial NCT ID: [id number] Clinical Trial Title: Study Of ATRN-119 In Patients With Advanced Solid Tumors Clinical Trial URL: [email or web address] rials.gov/[email or web address] Clinical Phase: Phase 1/Phase 2 Clinical Trial Matches: CHEK2 p.R519* mutation, TP53 p.R342* mutation Clinical Trial Distance and Location: [address] [place], [place] 02/04/2025 4:34 PM CDT [facility] Tumor Mutational Foristell 5.0 m/MB 02/04/2025 4:34 PM CDT [facility] Microsatellite Instability Note MSI-High not detected 02/04/2025 4:34 PM CDT [facility] Blood specimen (specimen) 01/26/2025 01/28/2025 10:55 PM CDT Narrative This result has genomic variants that were not included in this document. us Nba Ponce MD MOLECULAR ORDERABLES Final Resu lt [facility] [address], [address] [place] [address], [facility] [address], [address] [place] [address] from Last 3 Months Insurance GENERIC MEDICARE MANAGED CARE
--- OUTSIDE RECORDS SUMMARY | 2025-03-07 20:07 | XMS_ITS | Clinical Summary ---
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
--- OUTSIDE RECORDS SUMMARY | 2025-03-07 20:07 | XMS_ITS | Encounter Summary ---
Author Organization [facility] [employer] [facility] Address [address] [place] [address] Care Team Providers Care Cosmetology Educator Name Role Phone Unavailable Primary Care Provider Unavailabl e Encounter Details Date Type Department Care Team (Late Contact Info) Description 03/03/2025 Orders Only [facility] [place] [address] Nba Ponce MD [address] [employer] [address] [place] [phone] Social History Tobacco Use Types Packs/Day Years Used Date Smoking Tobacco: Never Smokeless Tobacco: Never Alcohol Use Standard Drinks/Week Comments Never 0 (1 standard drink = 0.6 oz pur e alcohol) Sex and Gender Information Value Date Recorded Sex Assigned at Not on file 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 Gender Identity Not on file Sexual Orientation Not on file documented as of this encounter Plan of Treatment Upcoming Encounters Date Type Department Care Team (Late Contact Info) Description 03/08/2025 Orders Only [facility] - [facility] [address] [place] [address] Nba Ponce MD [address] [employer] [address] [place] [address] Malignant neoplasm of upper lobe of right lung (CMS/HCC) 03/17/2025 9:45 AM CDT Office Visit [facility] [address] [place] [address] Nba Ponce MD [address] [facility] [address] [place] [phone] documented as of this encounter Procedures [...]
--- OUTSIDE RECORDS SUMMARY | 2025-03-07 20:07 | XMS_ITS | Continuity of Care Document ---
Author Name [facility] Organization [facility] Care Team Providers Care Orchard Pruner Name Role Phone [facility] Unavailable Unavailable Problems Combined list of problems from Department of Defense and [facility] Affairs facilities. It does not include entries that were removed or entered in error. 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 [facility] Folliculitis Active 1 Condition [facility] Malignant neoplasm of skin Active 1 Condition [facility] Melanoma of Skin Active 1 Condition [facility] Anxiety Disorder NOS Active 2 Condition [facility] Anxiety Disorder * (ICD-9-CM 300.00) Active Condition [facility] Anxiety Disorder NOS Active Condition [facility] Basal cell carcinoma of skin Active Condition [facility] Depression * (ICD-9-CM 300.4/311.) Active Condition [facility] Depression * (ICD-9-CM 311./300.4) Active Condition [facility] Dysthymic Disorder (ICD-9-CM 300.4) Active Condition [facility] Elevated PSA Active Condition [facility] Head and Neck Cancer, Unknown Site Active Condition Dec 21, 2008 Entered By: TIANNA LEBLANC Comment: has received radiation post neck surgeryDec 21, 2008 Entered By: TIANNA LEBLANC Comment: salivary glands goneDec 21, 2009 Entered By: TIANNA LEBLANC Comment: SCC, necklymph nodes, left nipple,2001Dec 21, 2009 Entered By: TIANNA LEBLANC [facility] Entered By: TIANNA LEBLANC Comment: records scanned [facility] Hyperkalemia * (ICD-9-CM 276.7) Active Condition [facility] Impacted Cerumen Active Condition [facility] Thong [facility] Internal hemorrhoids without mention of complication (ICD-9-CM 455.0) Active Condition [facility] Low Back Pain Active Condition [facility] Major Depressive Disorder, Recurrent Active Condition [facility] Major Depressive Disorder, Recurrent, Severe, without Psychotic Features (ICD-9- Active Condition [facility] Melanoma of Skin Active Condition Dec 21, 2008 Entered By: TIANNA LEBLANC Comment: Dr Day, several removed [facility] Memory loss Active Condition [facility] Mood Disorder NOS Active Condition [facility] Nicotine Dependence Active Condition Dec 21, 2009 Entered By: TIANNA LEBLANC Comment: declines treatment [facility] PANIC D/O W/0 AGORA Active Condition [facility] Personal History of Colonic Polyps Active Condition Nov 08, 2010 Entered By: ROMAINE ROBLES Comment: Due for repeat colonoscopy 08/2011 - 09/2011May 2011 Entered By: ANNMARIE GUARDADO Comment: repeat colonoscopy due in 08/2012 [facility] Prostate cancer Active Condition [facility] Sensory neuropathy Active Condition [facility] Tobacco use Active Condition [facility] Tobacco Use * (ICD-9-CM 305.1) Active Condition [facility] Vitamin D deficiency (SNOMED CT [id number]) Active Condition [facility] Medications Combined list of outpatient [...] DAY ORAL ACTIVE CAR FIGUEREDO MD 2018 [facility] Immunizations Combined list of available immunizations from the Department of [facility] and Veterans Affairs facilities. Immunization Series Date Given Administered By Site Reaction Lot Number CVX Code Drug Bisque Cleaner Status Comments Source COVID-19 (MODERNA), MRNA, LNP-S, PF, 100 MCG/0.5 ML DOSE 2 2020 207 complet ed MOD; [id number]; 1 [facility] COVID-19 (MODERNA), MRNA, LNP-S, PF, 100 MCG/0.5 ML DOSE 1 2020 207 complet ed MOD; [id number]; 1 [facility] TDAP 2012 115 complet ed Left Deltoid [facility] Procedures Combined list of: 1) Procedures from Department of Veterans Affairs facilities [facility], not all VA non-surgical procedures are included; 2) All procedures from the Department of Defense facilities. Procedure Procedure Type Code Date Perfomer Comments Sourc e COLLECTION OF VENOUS BLOOD B Y VENIPUNCTURE 11/22/2005 [facility] COLLECTION OF VENOUS BLOOD B Y VENIPUNCTURE 05/16/2005 [facility] Social History Combined list of available smoking, tobacco, and other social history from Department of Defense and Veterans Affairs facilities. 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 06/22/2019 [facility] History of tobacco use VA-TOBACCO USER EVERY DAY 02/24/2018 [facility] History of tobacco use TOBACCO USER OFFERED MEDS 11/27/2017 [facility] History of tobacco use QUIT TOBACCO >7 YEARS AGO 11/30/2014 [facility] History of tobacco use CURRENT TOBACCO USER 01/04/2014 Demetrio PRISCILLA [facility] History [facility] tobacco use CURRENT TOBACCO USER 01/20/2013 [facility] History of tobacco use CURRENT TOBACCO USER 06/25/2012 Demetrio PRISCILLA [facility] History of tobacco use CURRENT TOBACCO USER 07/19/2011 [facility] History of tobacco use CURRENT TOBACCO USER 07/17/2010 [facility] History of tobacco use CURRENT TOBACCO USER 12/20/[address] [facility] History of tobacco use CURRENT TOBACCO USER 12/21/2008 [facility] History of tobacco use CURRENT TOBACCO USER 10/28/2006 [facility] History of tobacco use PT REFUSED SMOKING CESSATION CLASSES 02/04/2004 [facility] History of tobacco use CURRENT TOBACCO USER 07/03/2001 [facility] This section is an empty social history section. [employer]
[2025-03-07] MEDS: LACTATED RINGERS 1,000 ML 999 ML IV CONT (20:20)
[2025-03-07 20:27] LABS: Basophils Percent Auto 0.2 % (0.2-1.2); Eosinophils Percent Auto 0.4 % (0-4.4); Hematocrit 31.5 % (42.0-52.0); Immature Granulocyte Absolute 0.03 K/mm3 (0.00-0.031); Immature Granulocyte Percent A 0.5 % (0-0.5); Lymphocytes Absolute Auto 0.38 K/mm3 (0.9-3.2); Lymphocytes Percent Auto 6.7 % (18.3-44.2); Mean Corpuscular HGB Conc 31.7 g/dl (32-36); Mean Corpuscular Hemoglobin 26.9 pg (26-34); Mean Corpuscular Volume 84.7 fl (80-100); Mean Platelet Volume 8.9 fl (7.4-10.4); Monocytes Absolute Auto 0.4 K/mm3 (0.1-0.6); Monocytes Percent Auto 7.1 % (2.6-8.5); Neutrophils Absolute Auto 4.8 K/mm3 (1.3-6.7); Neutrophils Percent Auto 85.1 % (45.5-73.1); Platelet Count Result 253 k/mm3 (150-375); Red Blood Count 3.72 M/mm3 (4.6-6.20); Red Cell Distribution Width 16.4 % (11.5-14.5); White Blood Count 5.7 K/mm3 (4.5-10.0)
[2025-03-07 20:37] LABS: Magnesium 2.4 mg/dL (1.6-2.3)
[2025-03-07 21:44] VITALS: BP 114/70; PULSE 85; RESP 21; O2SAT 98
[2025-03-07 22:38] LABS: Alanine Aminotransferase 21 U/L (6-50); Albumin Level 3.7 g/dL (3.5-5.1); Alkaline Phosphatase 96 U/L (38-126); Anion Gap 10 mmol/L (4-12); Aspartate Amino Transferase 24 U/L (17-59); Blood Urea Nitrogen 43 mg/dL (9-20); Carbon Dioxide 25 mmol/L (22-30); Chloride 100 mmol/L (98-107); Estimated CRCL calculation 48 ml/min; Estimated Glomerular Filt Rate > 60; Glucose 120 mg/dL (65-110); Potassium 4.2 mmol/L (3.4-5.0); Sodium 135 mmol/L (137-145); Total Protein 6.3 g/dL (6.3-8.2)
[2025-03-07 23:45] VITALS: BP 120/72; PULSE 64; RESP 15; O2SAT 99
--- NOTE | 2025-03-07 23:56 | ED_ITS ---
HPI - General Adult General Chief complaint: Unspecified Stated complaint: Decreased appetite, chemo Time Seen by Provider: 03/07/25 19:22 History of Present Illness HPI narrative: Patient is currently on chemo and radiation and as a result has had poor appetite, his cancer is also in an area that infringes on his ability to swallow, so he has only been able to keep down Pedialyte and popsicles. Related Data Home Medications ?Medication ?Instructions ?Recorded ?Confirmed ?Last Taken ?Type hydrocodone 10 mg-acetaminophen 1 tablet PO Q4H 01/29/25 02/10/25 02/01/25 History 325 mg tablet Allergies Allergy/AdvReac Type Severity Reaction Status Date / Time No Known Allergies Allergy Verified 03/07/25 19:21 Review of Systems 2 Review of Systems: All systems reviewed & are unremarkable except as noted in HPI and below PMFSH Past Medical History Medical History Greater trochanter fracture (~01/2024) Non-small cell carcinoma of right lung (~12/2024) Respiratory failure (~10/2024) Hx of malignant neoplasm of prostate GERD without esophagitis Hyperlipidemia Skin cancer History of fracture of left hip COPD (chronic obstructive pulmonary disease) 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 Prostate cancer Recently discovered on biopsy. Apparently low-grade and is being followed by surveillance. Melanoma Melanoma x2 excised from the chest. Anxiety Depression Arthritis Back fracture T12 fracture in 1992. Surgical History Surgical History Status post-operative repair of closed fracture of left hip Status post surgical removal of malignant neoplasm of skin Including melanoma from the chest and basal cell carcinoma from the cheek and arms. History of back surgery Hx of appendectomy Family History Family History Mother Congestive heart failure Social History Social History Social History: The patient is to his 3rd and lives in [place]. He has 13 children, youngest is 3. He is retired, worked for the [employer]. He designates his , Nicole, as his surrogate decision maker and he wishes to be a full code. Smoking packs per day: 1 Smoking cigarettes per day: 20.0 Years smoked: 55 Smoking pack-years: 55.00 Smoking status: Former smoker Tobacco type: cigarettes Smoking end date: 10/29/24 Alcohol intake: never Substance use: never Substance use type: does not use Last use: oct 29, 2024 Lack of Transportation: No Lack of Food: Never True Current Housing: I Have Housing Concerned About Future Housing: No Difficulty Paying Gas/Electric Bills: No Difficulty Paying for Meds: No Currently Unemployed: No Education: Bachelor's Degree Difficulty w/ Childcare or Family Care: No Living arrangements: with family Additional living arrangements comments: Occupation/Education: retired Gender identity (if verbalized by the patient): Male Sexual Orientation (if Verbalized by the Patient): Straight or Heterosexual Spiritual care concerns: No Agree to blood products: Yes Exam 2 Narrative: EXAMINATION OF ORGAN SYSTEMS/BODY AREAS: Constitutional: Vital signs per nursing GENERAL: Appears quite tired HEAD: Cachectic EYES: EOMI, conjunctiva normal ENT: Hearing grossly intact LUNGS: Nonlabored breathing. HEART: [Regular rate and rhythm] ABD: [Soft], [nontender to palpation] EXT: Normal range of motion, quite thin SKIN: [No rashes or lesions.] NEURO: [Alert and oriented x 3. No gross focal sensory or strength deficits.] PSYCH: Normal affect Course Vital Signs Vital signs: Vital Signs Temperature 97.6 F 03/07/25 19:18 Pulse Rate 81 03/07/25 19:18 Respiratory Rate 23 H 03/07/25 19:18 Blood Pressure 109/74 03/07/25 19:18 Pulse Oximetry 94 03/07/25 19:18 Oxygen Delivery Room Air 03/07/25 19:18 Temperature 97.6 F 03/07/25 19:18 Pulse Rate 64 03/07/25 23:45 Respiratory Rate 15 03/07/25 23:45 Blood Pressure 120/72 03/07/25 23:45 Pulse Oximetry 99 03/07/25 23:45 Oxygen Delivery Room Air 03/07/25 19:18 Medical Decision Making MDM Narrative Medical decision making narrative: Patient presents here due to generalized weakness from not being able to eat or drink enough due to his cancer and chemotherapy, he does appear quite tired here and very emaciated, IVs fluids have been started, will basic labs obtained which are thankfully within acceptable limits. Patient on re-evaluation states he feels much better and feels good about going home. I have let him know that he can always return to the emergency room for any further issues. Vital Signs Vital Signs: Vital Signs Temperature 97.6 F 03/07/25 19:18 Pulse Rate 81 03/07/25 19:18 Respiratory Rate 23 H 03/07/25 19:18 Blood Pressure 109/74 03/07/25 19:18 Pulse Oximetry 94 03/07/25 19:18 Oxygen Delivery Room Air 03/07/25 19:18 Temperature 97.6 F 03/07/25 19:18 Pulse Rate 64 03/07/25 23:45 Respiratory Rate 15 03/07/25 23:45 Blood Pressure 120/72 03/07/25 23:45 Pulse Oximetry 99 03/07/25 23:45 Oxygen Delivery Room Air 03/07/25 19:18 Lab Data 03/07/25 20:22 03/07/25 20:22 Labs: Lab Results 03/07/25 Range/Units 20:22 WBC 5.7 (4.5-10.0) K/mm3 RBC 3.72 L (4.6-6.20) M/mm3 Hgb 10.0 L (14.0-18.0) g/dL Hct 31.5 L (42.0-52.0) % MCV 84.7 (80-100) fl MCH 26.9 (26-34) pg MCHC 31.7 L (32-36) g/dl RDW 16.4 H (11.5-14.5) % Plt Count 253 (150-375) k/mm3 MPV 8.9 (7.4-10.4) fl Immature Gran % (Auto) 0.5 (0-0.5) % Neut % (Auto) 85.1 H (45.5-73.1) % Lymph % (Auto) 6.7 L (18.3-44.2) % [place] % (Auto) 7.1 (2.6-8.5) % Eos % (Auto) 0.4 (0-4.4) % Baso % (Auto) 0.2 (0.2-1.2) % Lymph # (Auto) 0.38 L (0.9-3.2) K/mm3 [place] # (Auto) 0.4 (0.1-0.6) K/mm3 Eos # (Auto) 0.0 (0-0.3) K/mm3 Baso # (Auto) 0.0 (0.0-0.1) K/mm3 Abs Immat Gran (auto) 0.03 (0.00-0.031) K/mm3 Absolute Neuts (auto) 4.8 (1.3-6.7) K/mm3 Absolute Nucleated RBC 0.000 (0.0-0.012) K/mm3 Nucleated RBC % 0.0 (0.0-0.2) % Sodium 135 L (137-145) mmol/L Potassium 4.2 (3.4-5.0) mmol/L Chloride 100 (98-107) mmol/L Carbon Dioxide 25 (22-30) mmol/L Anion Gap 10 (4-12) mmol/L BUN 43 H (9-20) mg/dL Creatinine 0.99 (0.7-1.3) mg/dL Estim Creat Clear Calc 48 ml/min Estimated GFR > 60 (59 - ) Glucose 120 H (65-110) mg/dL Calcium 9.0 (8.4-10.2) mg/dL Magnesium 2.4 H (1.6-2.3) mg/dL Total Bilirubin 1.0 (0.2-1.3) mg/dL AST 24 (17-59) U/L ALT 21 (6-50) U/L Alkaline Phosphatase 96 (38-126) U/L Total Protein 6.3 (6.3-8.2) g/dL Albumin 3.7 (3.5-5.1) g/dL Discharge Plan Discharge Clinical Impression: Dehydration Patient Disposition: Home Condition: Stable Instructions: Dehydration (ED) Additional Instructions: Please follow-up with your doctor let know what is going on. Make sure that you are keeping hydrated, you can always return to the emergency room for any further issues. Patient Language: Yakut Prescriptions: No Action fluconazole 200 mg tablet 200 mg PO DAILY Qty: 1 0RF fluconazole [Diflucan] 100 mg tablet 100 mg PO DAILY Qty: 14 0RF hydrocodone-acetaminophen 10-325 mg tablet 1 tablet PO Q4H Patient Comments: . lorazepam 2 mg tablet 2 mg PO BID PRN (Reason: Anxiety) Qty: 60 2RF Patient Comments: . phenelzine 15 mg tablet 15 mg PO TID Qty: 270 1RF Follow-up/Referrals: Delia Rose MD [Primary Care Provider] -
== END 2025-03-07 23:50 | disposition home or self-care (01) ==
PROVIDERS: Emergency Provider Emergency Medicine; PCP Radiology Radiation Oncology
DX: E86.0 Dehydration (principal); C34.91 Malignant neoplasm of unspecified part of right bronchus or lung; J44.9 Chronic obstructive pulmonary disease, unspecified; E78.5 Hyperlipidemia, unspecified; K21.9 Gastro-esophageal reflux disease without esophagitis; M19.90 Unspecified osteoarthritis, unspecified site; F32.A Depression, unspecified; F41.9 Anxiety disorder, unspecified; Z99.81 Dependence on supplemental oxygen; Z85.46 Personal history of malignant neoplasm of prostate; Z85.818 Personal history of malignant neoplasm of other sites of lip, oral cavity, and pharynx; Z85.820 Personal history of malignant melanoma of skin; Z87.891 Personal history of nicotine dependence; Z79.60 Long term (current) use of unspecified immunomodulators and immunosuppressants; Z79.899 Other long term (current) drug therapy
CPT/HCPCS: 36415; 80053; 83735; 85025; 96360; 99283; J7120

== ENCOUNTER 2025-03-14 07:42 | Emergency (ER) | payer OTHER, SELFPAY ==
[2025-03-14] VITALS (18 sets, daily range): BP systolic 61–114; BP diastolic 37–71; PULSE 63–87; RESP 13–28; TEMP 36.4; O2SAT 90–99
--- NOTE | ~2025-03-14 | XR_ITS ---
Portable chest x-ray Comparison: 02/16/2025 Clinical History: Weakness Findings: Right-sided Mediport unchanged. Probable retrocardiac airspace disease. Probable underlyin g COPD. Cardiomediastinal silhouette is stable. Stable thoracolumbar spinal fixation hardware. Impression: Retrocardiac airspace disease is suspicious for left lower lobe pneumonia. Underlying COPD. Stable Mediport. Reviewed, dictated and finalized at location . Impression: Retrocardiac airspace disease is suspicious for left lower lobe pneumonia. Underlying COPD. Stable Mediport.
--- NOTE | ~2025-03-14 | CT_ITS ---
Clinical Indication: Shortness of breath CT Scan of the Chest with Contrast: Technique: Contiguous sections were acquired throughout the chest after intravenous administration of 100 cc of Omnipaque 350. Dose reduction technique was used on this scan by utilizing automated expos ure control and iterative reconstruction technique. The dose-length product (DLP) was 176.98 mGy-cm. COMPARISON: 12/24/2024 Findings: There is no evidence of any significant mediastinal, hilar or axillary lymphadenopathy. There is no f illing defect in the pulmonary arterial tree to suggest pulmonary embolus. There is no evidence of ao rtic dissection or aneurysm. There is no evidence of pleural or pericardial effusion. There is irregular masslike consolidation in the medial right apex with areas of necrosis or cavitati on, which could reflect partially treated disease. Stable left apical scarring. Stable moderate to ad vanced emphysema. There is patchy bibasilar airspace disease and probable bibasilar tree-in-bud opaci ties. Images through the upper abdomen reveal small gallstone and bilateral renal cysts. Stable T12 neha jonah fracture present with thoracolumbar spinal fixation hardware. There are new moderate to severe c ompression fractures of T1 and T2. Impression: Irregular masslike consolidation medial right lung apex that demonstrates areas necrosis or cavitatio n, which could reflect partial response to interval radiation therapy or other therapy. New moderate severe compression fractures of T1 and T2. This could be related to osteoporosis or post radiation changes, though neoplastic involvement is not excluded. Consider MR imaging to further elizabeth luate the underlying marrow signal characteristics. Bibasilar patchy airspace disease and tree-in-bud opacities suggest infectious/inflammatory process v ersus atelectasis. Stable moderate to advanced emphysema. Reviewed, dictated and finalized at [facility]. Impression: Irregular masslike consolidation medial right lung apex that demonstrates areas necrosis or cavitation, which could reflect partial response to interval radia tion therapy or other therapy. New moderate severe compression fractures of T1 and T2. This could be related t o osteoporosis or post radiation changes, though neoplastic involvement is not excluded. Consider MR imaging to further evaluate the underlying marrow signal characteristics. Bibasilar patchy airspace disease and tree-in-bud opacities suggest infectious/ inflammatory process versus atelectasis. Stable moderate to advanced emphysema.
--- NOTE | ~2025-03-14 | CT_ITS ---
CT scan of the Neck Technique: 2.5 mm axial scans were obtained through the neck after intravenous administration of 100 cc Omnipaque 350. Coronal and sagittal reconstructions of the neck were obtained. Dose reduction tech nique was used on this scan by utilizing automated exposure control and iterative reconstruction tech nique. The dose-length product (DLP) was 457.77 mGy-cm. Clinical History: Neck swelling, history of squamous cell carcinoma, dysphagia Findings: There is no evidence of any significant cervical lymphadenopathy. Several small, nonenlarged jugulo- digastric and posterior cervical lymph nodes are noted bilaterally. Parapharyngeal spaces appear norm al bilaterally. The parotid and submandibular glands appear symmetric. The pharyngeal mucosal spaces appear normal. No soft tissue masses are seen in the neck. The thyroid gland appears normal. Images of the lung apices reveal irregular masslike consolidation i n the medial right lung apex with areas of cavitation or necrosis. There is moderate to advanced emph ysema. There is severe compression fracture of T1, and moderate compression fracture T2, which are new since 12/24/2024. There is advanced degenerative disc narrowing at C5-C6 and C6-C7.. Impression: Irregular masslike consolidation medial right lung apex with areas of cavitation or necrosis. This co mpatible with partial response to therapy of previously noted mass in this region. Correlate with merrill atment history. New compression fractures of T1 and T2 as compared to prior exam, as detailed above. These could be r elated to osteoporosis and/or postradiation change, though neoplastic involvement is not completely e xcluded. Consider MR to further evaluate the underlying marrow signal characteristics. Reviewed, dictated and finalized at location . Impression: Irregular masslike consolidation medial right lung apex with areas of cavitatio n or necrosis. This compatible with partial response to therapy of previously n oted mass in this region. Correlate with treatment history. New compression fractures of T1 and T2 as compared to prior exam, as detailed a sandeep. These could be related to osteoporosis and/or postradiation change, thoug h neoplastic involvement is not completely excluded. Consider MR to further elizabeth luate the underlying marrow signal characteristics.
[2025-03-14 08:29] LABS: Basophils Percent Auto 0.8 % (0.2-1.2); Eosinophils Percent Auto 1.6 % (0-4.4); Hematocrit 29.2 % (42.0-52.0); Hemoglobin 8.9 g/dL (14.0-18.0); Immature Granulocyte Absolute 0.03 K/mm3 (0.00-0.031); Immature Granulocyte Percent A 1.2 % (0-0.5); Lymphocytes Absolute Auto 0.27 K/mm3 (0.9-3.2); Lymphocytes Percent Auto 10.9 % (18.3-44.2); Mean Corpuscular HGB Conc 30.5 g/dl (32-36); Mean Corpuscular Volume 88.5 fl (80-100); Mean Platelet Volume 8.9 fl (7.4-10.4); Monocytes Absolute Auto 0.1 K/mm3 (0.1-0.6); Monocytes Percent Auto 5.6 % (2.6-8.5); Neutrophils Percent Auto 79.9 % (45.5-73.1); Platelet Count Result 164 k/mm3 (150-375); Red Cell Distribution Width 17.2 % (11.5-14.5); White Blood Count 2.5 K/mm3 (4.5-10.0)
[2025-03-14 08:41] LABS: Alanine Aminotransferase 16 U/L (6-50); Albumin Level 3.1 g/dL (3.5-5.1); Alkaline Phosphatase 62 U/L (38-126); Anion Gap 5 mmol/L (4-12); Aspartate Amino Transferase 18 U/L (17-59); Bilirubin,Total 0.7 mg/dL (0.2-1.3); Blood Urea Nitrogen 21 mg/dL (9-20); Calcium 8.1 mg/dL (8.4-10.2); Carbon Dioxide 28 mmol/L (22-30); Chloride 103 mmol/L (98-107); Estimated CRCL calculation 72 ml/min; Estimated Glomerular Filt Rate > 60; Glucose 119 mg/dL (65-110); Potassium 3.9 mmol/L (3.4-5.0); Sodium 136 mmol/L (137-145); Total Protein 5.5 g/dL (6.3-8.2)
--- NOTE | 2025-03-14 09:19 | ECG_ITS ---
Test Date: 2025-03-14 09:26:09 Measurements Intervals [place] Rate: 73 P: 3 [place]: 143 QRS: -2 QRSD: 84 T: -12 QT: 372 QTc: 411 Interpretive Statements SINUS RHYTHM LEFT VENTRICULAR HYPERTROPHY MINIMAL Q WAVES- DIFFUSE LEADS BORDERLINE ST-T WAVE ABNORMALITY- INFERIOR LEADS BASELINE ARTIFACT- II, III, AVR, AVL, AVF BORDERLINE ECG Compared to ECG 02/16/2025 15:34:34 NO SIGNIFICANT CHANGE Electronically Signed On 03-14-2025 12:38:51 CDT by Walt Millard D.O.
--- NOTE | 2025-03-14 09:27 | PC.NURSE ---
Lab called to add on ordered labs.
[2025-03-14 09:35] LABS: Creatine Kinase < 20 U/L (55-170)
[2025-03-14] MEDS: SODIUM CHLORIDE 0.9% IV 1,000 ML 999 ML IV CONT ×2 (09:42→11:36)
--- NOTE | 2025-03-14 09:44 | ED.RECABL ---
HPI - Recheck/Abnormal Lab/Rx General Chief Complaint: Recheck/Abnormal Lab/Rx Stated Complaint: neck swollen, hypotension? Time Seen by Provider: 03/14/25 09:15 Source: patient and family Mode of arrival: ambulatory Limitations: no limitations History of Present Illness HPI narrative: Patient presents with concern for increased neck swelling that it making it hard for him to swallow. He has been coughing stuff up when he tries to swallow and finds he is unable to get some/most of his food down. History of COPD (requesting a new portable nebulizer machine) as well as history neck restructuring procedure 1999 due to squamous cell carcinoma after which he went through radiation and chemo at [facility] in 1999. ENT had been Dr Basurto; surgery at [place] but then followed in [place]. Now currently diagnosed with lung cancer (diagnosed Oct 2024) undergoing radiation (8 treatments left) and chemo (2 rounds left); oncologist Dr Ponce. His appetite has been ok but decreased PO intake as a result. . Short of breath without chest pain. Cough productive but no blood. No fevers but chills. Denies pain with swallowing. Feels like things are narrowing/closing which didn't happen with his neck/tonsil surgery or during the reconstruction. He reports that he has been weak. Confirms PCP [facility]. Related Data Home Medications ?Medication ?Instructions ?Recorded ?Confirmed ?Last Taken ?Type hydrocodone 10 mg-acetaminophen 1 tablet PO Q4H 01/29/25 02/10/25 02/01/25 History 325 mg tablet Allergies Allergy/AdvReac Type Severity Reaction Status Date / Time No Known Allergies Allergy Verified 03/14/25 07:53 [facility] Past Medical History Medical History Greater trochanter fracture (~01/2024) Non-small cell carcinoma of right lung (~12/2024) Respiratory failure (~10/2024) Hx of malignant neoplasm of prostate GERD without esophagitis Hyperlipidemia Skin cancer History of fracture of left hip COPD (chronic obstructive pulmonary disease) 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 Prostate cancer Recently discovered on biopsy. Apparently low-grade and is being followed by surveillance. Melanoma Melanoma x2 excised from the chest. Anxiety Depression Arthritis Back fracture T12 fracture in 1992. Surgical History Surgical History (Updated 03/16/25 @ 05:22 by Tamara Carrillo MD) History of radical neck dissection 1999; ENT Dr Basurto ([facility]) Status post-operative repair of closed fracture of left hip Status post surgical removal of malignant neoplasm of skin Including melanoma from the chest and basal cell carcinoma from the cheek and arms. History of back surgery Hx of appendectomy Family History Family History Mother Congestive heart failure Social History Social History Social History: The patient is to his 3rd and lives in [place]. He has 13 children, youngest is 3. He is retired, worked for the [employer]. He designates his , Nicole, as his surrogate decision maker and he wishes to be a full code. Smoking packs per day: 1 Smoking cigarettes per day: 20.0 Years smoked: 55 Smoking pack-years: 55.00 Smoking status: Former smoker Tobacco type: cigarettes Smoking end date: 10/29/24 Alcohol intake: never Substance use: never Substance use type: does not use Last use: oct 29, 2024 Lack of Transportation: No Lack of Food: Never True Current Housing: I Have Housing Concerned About Future Housing: No Difficulty Paying Gas/Electric Bills: No Difficulty Paying for Meds: No Currently Unemployed: No Education: Bachelor's Degree Difficulty w/ Childcare or Family Care: No Living arrangements: with family Additional living arrangements comments: Occupation/Education: retired Gender identity (if verbalized by the patient): Male Sexual Orientation (if Verbalized by the Patient): Straight or Heterosexual Spiritual care concerns: No Agree to blood products: Yes Exam Narrative: GENERAL: Chronically ill-appearing, thin but in no acute distress. HEAD: atraumatic. EYES: Non injected, non icteric ENT: Nares clear, no rhinorrhea or epistaxis. Gross auditory acuity intact. Asymmetric s/p surgery involving mandible. Dry mucous membranes. NECK: Supple. No meningismus. Asymmetric with post surgical changes. No prominent goiter ; mild lymphadenopathy CHEST: Speaking in full sentences. No respiratory distress. Clear on auscultation bilaterally without wheezes or crackles. No stridor. Port R anterior chest appears intact, no overlying/surrounding edema or induration or purulent discharge HEART: Regular rate and rhythm. . ABDOMEN: Soft, nondistended. No rigidity or guarding. EXTREMITIES: Normal range of motion. No lower extremity edema. SKIN: Warm, dry, no rash. NEURO: No focal deficits. Alert and oriented. Answering questions. Following commands. Normal speech without aphasia or dysarthria. PSYCH: Normal mood and affect. Course Vital Signs Vital signs: Vital Signs Temperature 97.6 F 03/14/25 07:49 Pulse Rate 83 03/14/25 07:49 Respiratory Rate 16 03/14/25 07:49 Blood Pressure 77/55 L 03/14/25 07:49 Pulse Oximetry 94 03/14/25 07:49 Temperature 97.6 F 03/14/25 07:49 Pulse Rate 65 03/14/25 12:45 Respiratory Rate 16 03/14/25 12:45 Blood Pressure 114/65 03/14/25 12:45 Pulse Oximetry 97 03/14/25 12:45 MDM - Recheck/Abnormal Lab/Rx MDM Narrative Medical decision making narrative: Patient presents with concern for neck swelling causing difficulty swallowing. History tonsil cancer s/p neck reconstruction surgery in 1999 s/p radiation and chemo ; currently being treated for lung cancer and undergoing radiation and chemo. In the emergency department he is afebrile with vital signs that initially show borderline hypoxia however resolved on reassessment. Initial blood pressure does show hypotension at 77/55 with a mean arterial pressure of 62. Blood pressure improving with systolics in the 90s and diastolics in the 60s and mean arterial pressures in the 70s consistently just prior to 1 L fluids being started. Will give 2 L of IV fluids given to the degree of dehydration on assessment. Patient has leukopenia and normocytic anemia. Platelets are normal. His anemia has been stable/chronic. The leukopenia had been previously appreciated although is worse today. Calcium corrects to normal of 8.8 given the hypoalbuminemia. === Given patient's episodes of cancer, recommend continuing conversations of goals of care to establish values and wishes as discuss further treatments and interventions. Of note, Medicare guidelines for hospice eligibility a for patients with cancer are as follows: Patient will considered to be in the terminal stage ( life expectancy of 6 months or less) if they meet ALL of the following criteria: 1. clinical findings of malignancy with widespread, aggressive or progressive disease as evidenced by increasing symptoms, worsening lab values and or evidence of metastatic disease. 2. Palliative performance scale (PPS) </=70% 3. refuses further life-prolonging therapy OR continues to decline in spite of definite therapy. Supporting documentation includes: Hypercalcemia >12 Cachexia or weight loss of 5% past 3 months Signs and symptoms of advanced disease ( nausea, requirement for transfusions, malignant ascites or pleural effusion, etc.) Given this, patient might not meet criteria but a palliative care consult might be appropriate at some point. === CRP and ESR elevated. CT shows masses and lung. Patient has known history and this likely represents sequelae of versus partial response to interval cancer treatment. No notation of significant acute pathology within the neck/soft tissue. He is noted to have new compression fractures in T1-T2. Patient has difficulty with p.o. challenging, he is noted to cough, not able to take all of his bites food. Extensively discussed patient's workup with him. He does note that he saw a exhibit display representative/dietitian recently and has started using nutrition shakes. He also notes that he can keep Jell-O down typically. We discussed the possibility of admitting for evaluation by speech therapy, nutrition/dietitian, and that if problems persist they may need to be consideration of TPN and/or feeding tube. While all of these may be necessary in the future, patient notes that he does not feel that this is acute and he would prefer to be discharged to complete his radiation treatment scheduled for tomorrow. This is also reasonable as patient's blood pressure has resolved and his other labs have not demonstrated marked abnormalities. We gave strict emergency department return precautions any verified understanding. He feels very comfortable with this plan. Advised he follow up with PCP regarding obtaining Rx for DME for portable nebulizer if this is felt to be indicated. Advised he could also see the other services as above in the outpatient setting for the same. Advised follow up with both PCP and oncologist and provided referral to GI for consideration of elective PEG tube placement if needed. Differential Diagnosis Differential diagnosis: Likely other (Pulmonary embolism, COPD exacerbation, sequelae of lung cancer ; anemia; neck cancer Hyponatremia, rhabdomyolysis, thyroid dysfunction, dysphagia (oropharyngeal versus other stage/type/phase); radiation inflammation) Medical Records Attestation: I reviewed the patient's medical records. Medical records narrative: Radiation oncology notes reviewed which show patient has non-small cell carcinoma of the lung. Lab Data Attestation: I reviewed the patient's lab results. 03/14/25 08:25 03/14/25 08:25 Labs: Lab Results 03/14/25 03/14/25 Range/Units 08:25 09:39 WBC 2.5 L (4.5-10.0) K/mm3 RBC 3.30 L (4.6-6.20) M/mm3 Hgb 8.9 L (14.0-18.0) g/dL Hct 29.2 L (42.0-52.0) % MCV 88.5 (80-100) fl MCH 27.0 (26-34) pg MCHC 30.5 L (32-36) g/dl RDW 17.2 H (11.5-14.5) % Plt Count 164 (150-375) k/mm3 MPV 8.9 (7.4-10.4) fl Immature Gran % (Auto) 1.2 H (0-0.5) % Neut % (Auto) 79.9 H (45.5-73.1) % Lymph % (Auto) 10.9 L (18.3-44.2) % [place] % (Auto) 5.6 (2.6-8.5) % Eos % (Auto) 1.6 (0-4.4) % Baso % (Auto) 0.8 (0.2-1.2) % Lymph # (Auto) 0.27 L (0.9-3.2) K/mm3 [place] # (Auto) 0.1 (0.1-0.6) K/mm3 Eos # (Auto) 0.0 (0-0.3) K/mm3 Baso # (Auto) 0.0 (0.0-0.1) K/mm3 Abs Immat Gran (auto) 0.03 (0.00-0.031) K/mm3 Absolute Neuts (auto) 2.0 (1.3-6.7) K/mm3 Absolute Nucleated RBC 0.000 (0.0-0.012) K/mm3 Nucleated RBC % 0.0 (0.0-0.2) % ESR > 140 H (0-20) mm/hr Sodium 136 L (137-145) mmol/L Potassium 3.9 (3.4-5.0) mmol/L Chloride 103 (98-107) mmol/L Carbon Dioxide 28 (22-30) mmol/L Anion Gap 5 (4-12) mmol/L BUN 21 H (9-20) mg/dL Creatinine 0.64 L (0.7-1.3) mg/dL Estim Creat Clear Calc 72 ml/min Estimated GFR > 60 (59 - ) Glucose 119 H (65-110) mg/dL Calcium 8.1 L (8.4-10.2) mg/dL Total Bilirubin 0.7 (0.2-1.3) mg/dL AST 18 (17-59) U/L ALT 16 (6-50) U/L Alkaline Phosphatase 62 (38-126) U/L Total Creatine Kinase < 20 L (55-170) U/L Troponin I < 0.012 (0.000-0.034) ng/mL C-Reactive Protein 4.9 H (<1.0) mg/dL Total Protein 5.5 L (6.3-8.2) g/dL Albumin 3.1 L (3.5-5.1) g/dL TSH 1.530 (0.465-4.680) uIU/mL Urine Color Yellow (Yellow) Urine Appearance Clear (Clear) Urine pH 8.0 (5.0-9.0) Ur Specific [place] 1.019 (1.001-1.035) Urine Protein 1+ H (Negative) mg/dL Urine Glucose (UA) Negative (Negative) mg/dL Urine Ketones Negative (Negative) mg/dL Ur Blood (Man) Negative (Negative) Urine Nitrate Negative (Negative) Urine Bilirubin Negative (Negative) Urine Urobilinogen 1.0 (<2.0) mg/dL Add Ur Microanalysis Reviewed Leukocyte Esterase Rfl Negative (Negative) TERRELL/UL Urine RBC 0-2 (0-2) /hpf Urine WBC 0-5 (0-3) /hpf Ur Squamous Epith Cells None seen (Few) /hpf Amorphous Sediment Moderate H (None) Urine Bacteria None seen /hpf Urine Casts 0-2 Imaging Data Radiologist's impression: Impression: Retrocardiac airspace disease is suspicious for left lower lobe pneumonia. Underlying COPD. Stable Mediport. Impression: Irregular masslike consolidation medial right lung apex that demonstrates areas necrosis or cavitation, which could reflect partial response to interval radiation therapy or other therapy. New moderate severe compression fractures of T1 and T2. This could be related to osteoporosis or post radiation changes, though neoplastic involvement is not excluded. Consider MR imaging to further evaluate the underlying marrow signal characteristics. Bibasilar patchy airspace disease and tree-in-bud opacities suggest infectious/inflammatory process versus atelectasis. Stable moderate to advanced emphysema. Impression: Irregular masslike consolidation medial right lung apex with areas of cavitation or necrosis. This compatible with partial response to therapy of previously noted mass in this region. Correlate with treatment history. New compression fractures of T1 and T2 as compared to prior exam, as detailed above. These could be related to osteoporosis and/or postradiation change, though neoplastic involvement is not completely excluded. Consider MR to further evaluate the underlying marrow signal characteristics. ECG Data EKG #1: Attestation: I personally reviewed and interpreted this ECG as follows: ECG completion date: 03/14/25 ECG completion time: 09:26 Interpretation: Normal sinus rhythm at a rate of 73 beats per minute. RI interval 143. QRS 84. QT/QTC 372/398. Good R-wave progression across the precordial leads. T-wave inversions in 3 and AVF but upright in contiguous inferior leads 2. No T-wave inversions in precordial leads. Pre populated algorithm suggests left ventricular hypertrophy S wave depth in V1 + tallest R wave height in V5-6 is <35mm ; but R wave in lead I + S wave in lead III is >25mm. Discharge Plan Discharge Clinical Impression: Dysphagia, Leukopenia, Normocytic anemia, Hypoalbuminemia, Adult failure to thrive, CRP elevated, Elevated erythrocyte sedimentation rate, Compression fracture of T1 vertebra, Compression fracture of T2 vertebra, Non-small cell carcinoma of lung, Emphysema lung COPD (chronic obstructive pulmonary disease) Qualifiers: COPD type: chronic bronchitis Chronic bronchitis type: unspecified Qualified Code(s): J42 - Unspecified chronic bronchitis Patient Disposition: Home Condition: Stable Instructions: Antibiotic Form, Lung Cancer (DC), Vertebral Compression Fracture (ED), COPD (Chronic Obstructive Pulmonary Disease) (ED), Anemia (ED), Failure to Thrive in Older Adults (ED), Dysphagia (ED) Additional Instructions: Follow-up with your primary care physician/oncologist for referral to: Speech therapy, dietitian. The name of a survival equipment repairer is listed below as if continue to have issues you may require placement of a feeding tube as we discussed. Keep your upcoming appointments. Continue taking your medications as prescribed. Continue using the nutrition shakes your advised to drink. Do not hesitate to return to the emergency department any new, worsening, or unmanaged symptoms such as concern for inability to drink/eat, difficulty breathing, pain with eating, etc. Patient Language: Macedonian Prescriptions: No Action fluconazole 200 mg tablet 200 mg PO DAILY Qty: 1 0RF fluconazole [Diflucan] 100 mg tablet 100 mg PO DAILY Qty: 14 0RF hydrocodone-acetaminophen 10-325 mg tablet 1 tablet PO Q4H Patient Comments: . lorazepam 2 mg tablet 2 mg PO BID PRN (Reason: Anxiety) Qty: 60 2RF Patient Comments: . phenelzine 15 mg tablet 15 mg PO TID Qty: 270 1RF Follow-up/Referrals: Nba Ponce MD [Physician] - Pal Matthews MD [Primary Care Provider] - Atul Laboy MD [Physician] - (consideration of G tube) Time of Disposition: 12:24
[2025-03-14 09:48] LABS: Troponin I < 0.012 ng/mL (0.000-0.034)
[2025-03-14 10:03] LABS: CRP 4.9 mg/dL (<1.0)
[2025-03-14 10:05] LABS: Add Urine Microscopic? YES; Amorphous Sediment Urine Moderate; Appearance Urine Clear (Clear); Bacteria Urine None Seen /hpf; Bilirubin Urine Negative (Negative); Blood Urine Negative (Negative); Color Urine Yellow (Yellow); Glucose Urine UA Negative (Negative); Ketones Urine Negative (Negative); Leukocyte Esterase Ur Negative LEU/UL (Negative); Need Manual Microscopic Reviewed; Nitrate Urine Negative (Negative); Non Pathogenic Casts 0-2; Protein Urine 1+ mg/dL (Negative); RBC Urine 0-2 /hpf (0-2); Specific Grav Ur 1.019 (1.001-1.035); Squamous Epithelial Cell Urine None Seen /hpf (Few); WBC Urine 0-5 /hpf (0-3)
[2025-03-14 10:34] LABS: Erythrocyte Sedimentation Rate > 140 mm/hr (0-20)
--- NOTE | 2025-03-14 12:09 | PC.NURSE ---
Pt. failed PO challenge. Able to swallow soda. When attempting to eat chips or jello, pt. continuously coughing and clearing his throat. Pt. states it feels like it's stuck. States this is what has been happening at home. Pt. protecting his airway. Dr. Carrillo notified and at bedside talking with pt.
[2025-03-14] MEDS: HEPARIN SODIUM LOCK FLUSH 500 UNITS/5 ML SYRINGE IV PUSH (12:48)
== END 2025-03-14 12:52 | disposition home or self-care (01) ==
PROVIDERS: Emergency Provider Student in an Organized Health Care Education/Training Program; PCP Family Medicine
DX: R13.10 Dysphagia, unspecified (principal); C34.90 Malignant neoplasm of unspecified part of unspecified bronchus or lung; R62.7 Adult failure to thrive; Z68.1 Body mass index [BMI] 19.9 or less, adult; M84.48XA Pathological fracture, other site, initial encounter for fracture; D64.9 Anemia, unspecified; R79.82 Elevated C-reactive protein (CRP); E88.09 Other disorders of plasma-protein metabolism, not elsewhere classified; R70.0 Elevated erythrocyte sedimentation rate; D72.819 Decreased white blood cell count, unspecified; J43.9 Emphysema, unspecified; Z85.46 Personal history of malignant neoplasm of prostate; E78.5 Hyperlipidemia, unspecified; K21.9 Gastro-esophageal reflux disease without esophagitis; M19.90 Unspecified osteoarthritis, unspecified site; F32.A Depression, unspecified; F41.9 Anxiety disorder, unspecified; Z99.81 Dependence on supplemental oxygen; Z92.3 Personal history of irradiation; Z92.21 Personal history of antineoplastic chemotherapy; Z85.818 Personal history of malignant neoplasm of other sites of lip, oral cavity, and pharynx; Z85.820 Personal history of malignant melanoma of skin; Z87.891 Personal history of nicotine dependence; Z79.60 Long term (current) use of unspecified immunomodulators and immunosuppressants; Z79.899 Other long term (current) drug therapy; R94.31 Abnormal electrocardiogram [ECG] [EKG]; I51.7 Cardiomegaly
CPT/HCPCS: 36415; 70491; 71045; 71275; 80053; 81001; 82550; 84443; 84484; 85025; 85652; 86140; 93005; 96360; 96361; 99284; J7030; Q9967

== ENCOUNTER 2025-03-26 23:02 | Inpatient (IN) | payer OTHER, SELFPAY ==
--- NOTE | ~2025-03-26 | XR_ITS ---
MODIFIED ESOPHAGRAM HISTORY: Dysphagia. TECHNIQUE: Modified barium esophagram was performed on 03/29/2025. I administered fluoroscopy and perfo rmed the exam with speech pathologist. Patient was seated for lateral fluoroscopic imaging for inges tion of thin liquids, pudding, solids and quantified amounts, followed by thin liquids in uncontrolle d amounts. This was recorded on tape. A single fluoroscopic spot image was also recorded. The DAP for this procedure was 1.023 Gycm2. The amount of fluoroscopy time used during this procedure was 2.0 mi nutes. FINDINGS: Oral stage: Adequate function. Pharyngeal stage: Reduced laryngeal elevation and adduction. Reduced tongue base retraction. There is vallecular residue. There is laryngeal penetration and aspiration.. Cervical/esophageal stage: Adequate function. IMPRESSION: Pharyngeal dysphagia with laryngeal penetration and aspiration. Please correlate with sp eech pathologist findings and specific feeding recommendations. Reviewed, dictated and finalized at location A. IMPRESSION: Pharyngeal dysphagia with laryngeal penetration and aspiration. Pl ease correlate with speech pathologist findings and specific feeding recommenda tions.
--- OUTSIDE RECORDS SUMMARY | 2025-03-26 23:05 | XMS_ITS | Clinical Summary ---
Author Organization [facility] Address [address] [place] [address] Care Team Providers Care Sparker And Patcher Name Role Phone Unavailable Primary Care Provider Unavailabl e Allergies No known active allergies Medications LORazepam (ATIVAN) 2 mg tablet 09/10/20 21 Active phenelzine (NardiL) 15 mg tablet Take 15 mg by mouth 3 times daily. Active Trelegy Ellipta 100-62.5-25 mcg Disk with Device Take 1 Puff by inhalation daily. 01/14/20 25 Active naloxone (NARCAN) 4 mg/spray [place], Non-Aerosol EMERGENCY USE ONLY: Administer 1 spray (4 mg) in one nostril one time. May repeat in alternating nostrils every 2-3 min until responsive or EMS arrives. 2 Each 3 01/14/20 25 Active lidocaine-priloc kareem (EMLA) 2.5-2.5 % CreamIndications :Malignant neoplasm of upper lobe of right lung (CMS/HCC) Apply a quarter size amount to port site 30 minutes before access. 30 Gram 1 02/03/20 25 Active ondansetron (ZOFRAN ODT) 8 mg Tablet, Rapid DissolveIndicati ons:Malignant neoplasm of upper lobe of right lung (CMS/HCC) Dissolve 1 tablet on top of tongue then swallow with saliva every 8 hours as needed for nausea or vomiting 30 Tablet 1 02/03/20 25 Active dexAMETHasone (DECADRON) 4 mg tablet Take 1 Tablet (4 mg) by mouth 2 times daily. 60 Tablet 02/24/20 25 Active HYDROcodone-acet aminophen (NORCO) 10-325 mg TabletIndication s:Malignant neoplasm of upper lobe of right lung (CMS/HCC) Take 1 Tablet by mouth every 4 hours as needed for Pain, Moderate. Max Daily Amount: 6 Tablets 120 Tablet 03/01/20 25 Active sucralfate (Carafate) 100 mg/mL suspension Take 10 mL (1 Gram) by mouth every 6 hours. 414 mL 03/17/20 25 Active albuterol (PROVENTIL,MITCH GILBERTO) 0.63 mg/3 mL Solution for Nebulization Take 3 mL (0.63 mg) by inhalation every 6 hours as needed for Shortness of Breath. 90 mL 03/17/20 25 Active HYDROcodone-acet aminophen (NORCO) 10-325 mg TabletIndication s:Malignant neoplasm of upper lobe of right lung (CMS/HCC) Take 1 Tablet by mouth every 4 hours as needed for Pain, Moderate. Max Daily Amount: 6 Tablets 60 Tablet 02/18/20 25 025 Discontin ued(Reord er) Active Problems No known active problems Encounters Date Type Department Care Team Description 03/24/2025 Orders Only [facility] [place] [address] [place] [id number] Nba Ponce MD 03/22/2025 Orders Only [facility] [place] [address] [place] [phone] Nba Ponce MD Malignant neoplasm of upper lobe of right lung (CMS/HCC) 03/18/2025 Orders Only [facility] [place] [address] [place] [phone] Nba Ponce MD 03/17/2025 9:45 AM CDT Office Visit [facility] [place] [address] [place] [address] Nba Ponce MD Malignant neoplasm of upper lobe of right lung (CMS/HCC) (Primary Dx) 03/16/2025 Orders Only [facility] [place] [address] [place] [address] Nba Ponce MD 03/08/2025 Orders Only [facility] [place] [address] [place] [phone] Nba Ponce MD Malignant neoplasm of upper lobe of right lung (CMS/HCC) 03/03/2025 Orders Only [facility] [place] [address] [place] [address] Nba Ponce MD 03/01/2025 Refill [facility] [place] [address] [place] [address] Nba Ponce MD Malignant neoplasm of upper lobe of right lung (CMS/HCC) 02/26/2025 Orders Only [facility] [place] [address] [place] [address] Nba Ponce MD 02/24/2025 Orders Only [facility] [place] [address] [place] [id number] Nba Ponce MD 02/23/2025 9:00 AM CDT Office Visit [facility] [place] [address] Nba Ponce MD Malignant neoplasm of upper lobe of right lung (CMS/HCC) (Primary Dx) 02/22/2025 Orders Only [facility] [place] [address] Nba Ponce MD Malignant neoplasm of upper lobe of right lung (CMS/HCC) 02/17/2025 Abstract [facility] [place] [address] Nba Ponce MD 02/17/2025 Refill [facility] [place] [address] [place] [phone] Nba Ponce MD Malignant neoplasm of upper lobe of right lung (CMS/HCC) 02/17/2025 Telephone [facility] [address] [place] [address] Nba Ponce MD Hold Chemotherapy/Lab Results 02/11/2025 External Device Data 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, Abstract 02/10/2025 External Device Data 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, Abstract 02/10/2025 Orders Only [facility] [address] [place] [address] Nba Ponce MD Malignant neoplasm of upper lobe of right lung (CMS/HCC) (Primary Dx) 02/09/2025 External Device Data 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, Abstract 02/08/2025 Refill [facility] [address] [place] [phone] Nba Ponce MD Malignant neoplasm of upper lobe of right lung (CMS/HCC) 02/02/2025 Refill [facility] [address] [place] [phone] Nba Ponce MD Malignant neoplasm of upper lobe of right lung (CMS/HCC) (Primary Dx) 01/26/2025 10:00 AM CDT Office Visit [facility] [address] [place] [address] Nba Ponce MD Malignant neoplasm of upper lobe of right lung (CMS/HCC) (Primary Dx) 01/19/2025 External Device Data 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, Abstract 01/19/2025 External Device Data 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, Abstract 01/19/2025 External Device Data 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, Abstract 01/13/2025 11:00 AM CDT Office Visit [facility] [address] [place] [address] Luna Birmingham MD Malignant neoplasm of upper [...] on file Legal Sex 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 Gender Identity Not on file Sexual Orientation Not on file Last Filed Vital Signs Vital Sign Reading Time Taken Comments Blood Pressure 138/76 03/17/2025 9:11 AM CDT Pulse 82 03/17/2025 9:11 AM CDT Temperature 36.4 C (97.5 F) 03/17/2025 9:11 AM CDT Respiratory Rate 16 03/17/2025 9:11 AM CDT Oxygen Saturation 87% 03/17/2025 9:1 1 AM CDT has o2 in the car Inhaled Oxygen Concentration - - Weight 61.4 kg (135 lb 6.4 oz) 03/17/2025 9:11 AM CDT Height 182.9 cm (6') 01/13/2025 10:51 AM CDT Body Mass Index 18.36 01/13/2025 10:51 AM CDT Plan of Treatment Upcoming Encounters Date Type Department Care Team (Late st Contact Info) Description 04/01/2025 8:45 AM CDT Office Visit [facility] [place] [address] [facility] [address] [place] [address] Nba Ponce MD [address] [facility] [address] [place] [address] Health Maintenance Due Date Last Done Comments PNEUMOCOCCAL VACCINE 50+ YEA RS (1 of 2 - PCV) 1967 ZOSTER VACCINE (1 of 2) 1998 DTAP/TDAP/TD VACCINES (2 - Td or Tdap) 01/20/2023 RSV VACCINE (60+ or ) (1 - 1-dose 75+ series) 2023 COVID-19 Vaccine (3 - season) 05/24/202411/2020, 11/27/2020 INFLUENZA VACCINE (#1) 2025 Procedures Procedure Name Priority Date/Time Associated Diagnosis Comments COMPREHENSIVE METABOLIC PANEL Routine 03/24/2025 12:26 PM CDT COMPREHENSIVE METABOLIC PANEL Routine 03/17/2025 4:41 PM CDT BASIC METABOLIC PANEL Routine 03/17/2025 4:12 PM CDT COMPREHENSIVE METABOLIC PANEL Routine 03/10/2025 5:12 PM CDT BASIC METABOLIC PANEL Routine 03/03/2025 12:51 PM [...] (CMS/HCC) from Last 3 Months Results * COMPREHENSIVE METABOLIC PANEL (03/24/2025 12:26 PM CDT) Only the most recent of6 resultswithin the time period is included. Blood us Nba Ponce MD CHEMISTRY ORDERABLES Final Resu lt * BASIC METABOLIC PANEL (03/17/2025 4:12 PM CDT) Only the most recent of4 resultswithin the time period is included. Blood [...] ORDERABLES Final Resu lt [facility] [address], [address] [place] [address], [facility] [address], [address] [place] [address] * [facility] (01/26/2025 12:00 AM CDT) Reason for Study To identify mutations relevant to patient's cancer. 02/04/2025 4:34 PM CDT [facility] Genetic Diseases Assessed Cancer 02/04/2025 4:34 PM CDT [facility] Description of Ranges of DNA Sequences Examined 523 gene liquid biopsy 02/04/2025 4:34 PM CDT [facility] Overall Interpretation positive 02/04/2025 4:34 PM CDT [facility] [email or web address]- [email or web address]/[id number] /[id number] 02/04/2025 4:34 PM CDT [facility] Comment:[facility] link Low Coverage Regions CARM1, CUL4A, DNMT1, FANCC, FGFR3, GNA11, IMPDH1, KMT2A, MAPK1, MAPK3, MSH3, NFE2L2, NOTCH2, PHLPP2, PIK3R2, PTPRT, RAD51C, RECQL4, RHEB, RHOA, RXRA, SDHAF2, TERT, TGFBR1, TP53, TP63, XBP1, ZNRF3 02/04/2025 4:34 PM CDT [facility] Therapy Count 1 02/04/2025 4:34 PM CDT [facility]: Potential Therapy 1 Gene: 85659^CHEK2^HGNC Variant: p.R519* Match Type: snvIndel Match Type Description: CHEK2 p.R519* Agent: Olaparib Drug Class: PARP Inhibitor Tissue: Prostate Cancer Association: Response Evidence Status: Consensus Evidence ID: [id number] [id number] Variant: [id number] Label: FDA Off Label FDA Approved?: Yes On label?: No 02/04/2025 4:34 PM CDT [facility] Trial Count 3 02/04/2025 4:34 PM CDT [facility]: Clinical Trial Match 1 Clinical Trial NCT ID: [id number] Clinical Trial Title: A Study of PARG Inhibitor KUE605 in Participants With Advanced Solid Tumors Clinical Trial URL: [email or web address] Clinical Phase: Phase 1 Clinical Trial Matches: CHEK2 p.R519* mutation Clinical Trial Distance and Location: [address] [place], [place] 02/04/2025 4:34 PM CDT [facility]: Clinical Trial Match 2 Clinical Trial NCT ID: [id number] Clinical Trial Title: TAPUR: Testing the Use of Food and Drug Administration (FDA) Approved Drugs That Target a Specific Abnormality in a Tumor Gene in People With Advanced Stage Cancer Clinical Trial URL: [email or web address].[email or web address] Clinical Phase: Phase 2 Clinical Trial Matches: CHEK2 p.R519* mutation Clinical Trial Distance and Location: [address], [place], [place] 02/04/2025 4:34 PM CDT [facility]: Clinical Trial Match 3 Clinical Trial NCT ID: [id number] Clinical Trial Title: Study Of ATRN-119 In Patients With Advanced Solid Tumors Clinical Trial URL: [email or web address].[email or web address] Clinical Phase: Phase 1/Phase 2 Clinical Trial Matches: CHEK2 p.R519* mutation, TP53 p.R342* mutation Clinical Trial Distance and Location: [address] [place], [place] 02/04/2025 4:34 PM CDT [facility] Tumor Mutational [place] 5.0 m/MB 02/04/2025 4:34 PM CDT [facility] Microsatellite Instability Note MSI-High not detected 02/04/2025 4:34 PM CDT [facility] Blood specimen (specimen) 01/26/2025 01/28/2025 10:55 PM CDT Narrative This result has genomic variants that were not included in this document. us Nba Ponce MD MOLECULAR ORDERABLES Final Resu lt [facility] [address], [address] [place] [address], [facility] [address], [address] [place] [address] from Last 3 Months Insurance GENERIC [place] [address]
--- OUTSIDE RECORDS SUMMARY | 2025-03-26 23:05 | XMS_ITS | Encounter Summary ---
Author Organization [facility] Address [address] [place] [address] Care Team Providers Care Casting Operator Helper Name Role Phone Unavailable Primary Care Provider Unavailabl e Encounter Details Date Type Department Care Team (Late Contact Info) Description 03/24/2025 Orders Only [facility] H[facility] [place] [facility] [address] [place] [address] Nba Ponce MD [address] [place] [address] [employer] [address] [place] [address] Social History Tobacco Use Types Packs/Day Years Used Date Smoking Tobacco: Never Smokeless Tobacco: Never Alcohol Use Standard Drinks/Week Comments Never 0 (1 standard drink = 0.6 oz pur e alcohol) Sex and Gender Information Value Date Recorded Sex Assigned at Not on file Legal Sex Male 1:17 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 Gender Identity Not on file Sexual Orientation Not on file documented as of this encounter Plan of Treatment Upcoming Encounters Date Type Department Care Team (Late st Contact Info) Description 04/01/2025 8:45 AM CDT Office Visit [facility] [place] [facility] [address] [place] [address] Nba Ponce MD [address] [place] [address] [employer] [address] [place] [address] documented as of this encounter Procedures Procedure Name Priority Date/Time Associated Diagnosis Comments COMPREHENSIVE METABOLIC PANEL Routine 03/24/2025 12:26 PM CDT documented in this encounter Results * COMPREHENSIVE METABOLIC PANEL (03/24/2025 12:26 PM CDT) Blood Nba Ponce MD CHEMISTRY ORDERABLES Final Resu lt documented in this encounter Visit Diagnoses Not on filedocumented in this encounter
--- OUTSIDE RECORDS SUMMARY | 2025-03-26 23:05 | XMS_ITS | Clinical Summary ---
Author Organization [facility] Address [address] [place] [address] Care Team Providers Care Senior Engineering Manager Name Role Phone Kirsten Matthews MD Primary Care Provider Social History Tobacco Use Types Packs/Day Years Used Date Smoking Tobacco: Never Assessed Sex and Gender Information Value Date Recorded Sex Assigned at Not on file Legal Sex Male 4:22 PM SUEDE CLEANER Gender Identity Not on file Sexual Orientation [...] this topic Insurance MEDICARE MEDICAID DEPT OF [address] Care Teams Senior Engineering Manager Relationship Specialty Start Date End Date Kirsten Matthews MD [address] [place] [address] PCP - General FAMILY PRACTICE 10/23/21
--- OUTSIDE RECORDS SUMMARY | 2025-03-26 23:05 | XMS_ITS | Encounter Summary ---
Author Organization [facility] Address [address] [place] [address] Care Team Providers Care Corn Popper Name Role Phone Unavailable Primary Care Provider Unavailabl e Encounter Details Date Type Department Care Team (Late st Contact Info) Description 03/22/2025 Orders Only [facility] H[facility] [address] [place] [address] Nba Ponce MD [address] [place] [address] [employer] [address] [place] [address] Malignant neoplasm of upper lobe of right lung (CMS/HCC) Social History Tobacco Use Types Packs/Day Years Used Date Smoking Tobacco: Never Smokeless Tobacco: Never Alcohol Use Standard Drinks/Week Comments Never 0 (1 standard drink = 0.6 oz pur e alcohol) Sex and Gender Information Value Date Recorded Sex Assigned at Not on file 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 Sex 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
--- OUTSIDE RECORDS SUMMARY | 2025-03-26 23:05 | XMS_ITS | Continuity of Care Document ---
Author Name [facility] Organization [facility] Care Team Providers Care Neurosurgery Spine Physician Name Role Phone [facility] Unavailable Unavailable Problems Combined list of problems from Department of Defense and [facility] Affairs facilities. It does not include entries that were removed or entered in error. 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 Depression * (ICD-9-CM 300.4/311.) Active Condition [facility] Depression * (ICD-9-CM 311./300.4) Active Condition [facility] Dysthymic Disorder (ICD-9-CM 300.4) Active Condition [facility] Elevated PSA Active Condition [facility] Head and Neck Cancer, Unknown Site Active Condition Dec 21, 2008 Entered By: TIANNA LEBLANC Comment: has received radiation post neck surgeryDec 21, 2008 Entered By: TIANNA LEBLANC Comment: salivary glands goneDec 21, 2009 Entered By: TIANNA LEBLANC Comment: SCC, necklymph nodes, left nipple,2001Dec 21, 2009 Entered By: TIANNA [facility]ANC [facility] Entered By: TIANNA LEBLANC Comment: records scanned [facility] Hyperkalemia * (ICD-9-CM 276.7) Active Condition [facility] Impacted Cerumen Active Condition [facility] Thong [facility] Internal hemorrhoids without mention of complication (ICD-9-CM 455.0) Active Condition [facility] Low Back Pain Active Condition [facility] Major Depressive Disorder, Recurrent Active Condition [facility] Major Depressive Disorder, Recurrent, Severe, without Psychotic Features (ICD-9- Active Condition [facility] Melanoma of Skin Active Condition Dec 21, 2008 Entered By: TIANAN LEBLANC Comment: Dr Day, several removed [facility] Memory loss Active Condition [facility] Mood Disorder NOS Active Condition [facility] Nicotine Dependence Active Condition Dec 21, 2009 Entered By: TIANNA LEBLANC Comment: declines treatment [facility] PANIC D/O W/0 AGORA Active Condition [facility] Personal History of Colonic Polyps Active Condition Nov 08, 2010 Entered By: ROMAINE ROBLES Comment: Due for repeat colonoscopy 08/2011 - 09/2011May 2011 Entered By: ANNMARIE GUARDADO Comment: repeat colonoscopy due in 08/2012 [facility] Prostate cancer Active Condition [facility] Sensory neuropathy Active Condition [facility] Tobacco use Active Condition [facility] Tobacco Use * (ICD-9-CM 305.1) Active Condition [facility] Vitamin D deficiency (SNOMED CT [id number]) Active Condition [facility] Medications Combined list of outpatient [...] DAY ORAL ACTIVE CAR FIGUEREDO MD 2018 [facility] Immunizations Combined list of available immunizations from the Department of [facility] and Veterans Affairs facilities. Immunization Series Date Given Administered By Site Reaction Lot Number CVX Code Drug Web Development Consultant Status Comments Source COVID-19 (MODERNA), MRNA, LNP-S, PF, 100 MCG/0.5 ML DOSE 2 2020 207 complet ed MOD; [id number]; 1 [facility] COVID-19 (MODERNA), MRNA, LNP-S, PF, 100 MCG/0.5 ML DOSE 1 2020 207 complet ed MOD; [id number]; 1 [facility] TDAP 2012 115 complet ed Left Deltoid [facility] Social History Combined list of available smoking, tobacco, and other social history from Department of Defense and Veterans Affairs facilities. Social History Type Response Date Comment Sourc e Tobacco smoking status AKIS VA-TOBACCO USE WI 30 MIN OF WAKEUP 01/03/2021 [facility] History of tobacco use VA-TOBACCO USE 30 YEARS OR MORE 01/03/2021 [facility] History of tobacco use VA-TOBACCO USE SENIOR RESEARCH EXECUTIVE YES 06/22/2019 [facility] History of tobacco use VA-TOBACCO USER EVERY DAY 02/24/2018 [facility] History of tobacco use TOBACCO USER OFFERED MEDS 11/27/2017 [facility] History of tobacco use QUIT TOBACCO >7 YEARS AGO 11/30/2014 [facility] History of tobacco use CURRENT TOBACCO USER 01/04/2014 [facility] History of tobacco use CURRENT TOBACCO USER 01/20/2013 [facility] History of tobacco use CURRENT TOBACCO USER 06/25/2012 [facility] History of tobacco use CURRENT TOBACCO USER 07/19/2011 [facility] Alonzo Hernandez [facility] History of tobacco use CURRENT TOBACCO USER 07/17/2010 [facility] History of tobacco use CURRENT TOBACCO USER 12/20/2009 [facility] History of tobacco use CURRENT TOBACCO USER 12/21/2008 [facility] History of tobacco use CURRENT TOBACCO USER 10/28/2006 [facility] History of tobacco use PT REFUSED SMOKING CESSATION CLASSES 02/04/2004 [facility] History of tobacco use CURRENT TOBACCO USER 07/03/2001 [facility]
[2025-03-26 23:08] VITALS: BP 92/61; PULSE 83; RESP 20; TEMP 37; O2SAT 93
--- NOTE | 2025-03-26 23:35 | ED_ITS ---
HPI - Weakness General Chief complaint: Weakness <ROSIE Neal Last Filed: 03/27/25 01:03> Stated complaint: WEIGHT LOSS WANTS FEEDING TUBE PLACED <ROSIE Neal Last Filed: 03/27/25 01:03> Time Seen by Provider: 03/26/25 23:07 <ROSIE Neal Last Filed: 03/27/25 01:03> Source: patient <ROSEI Neal Last Filed: 03/27/25 01:03> Mode of arrival: ambulatory <ROSIE Neal Last Filed: 03/27/25 01:03> Limitations: no limitations <ROSIE Neal Last Filed: 03/27/25 01:03> History of Present Illness HPI Narrative: This is a 74-year-old male that presents to the emergency department for difficulty swallowing. Reports this has been a progressive issue for him over the last several months. He has lost 60 lbs. He just recently finished radiation and chemo for lung cancer. His PCP recommended he have a feeding tube placed. Reports today he was wasn't able to keep down any water. <ROSIE Neal Last Filed: 03/27/25 01:03> Related Data Home medications: Home Medications ?Medication ?Instructions ?Recorded ?Confirmed ?Last Taken ?Type fluticasone fur. 100 mcg-umeclid 1 inh inhalation Q24H 03/18/25 03/27/25 Unknown History 62.5 mcg-vilant 25 mcg inhalat.powder (Trelegy Ellipta) sucralfate 100 mg/mL oral 10 ml PO Q4-5H 03/18/25 03/27/25 Unknown History suspension <ROSIE Neal Last Filed: 03/27/25 01:03> Allergies/Adverse reactions: Allergies Allergy/AdvReac Type Severity Reaction Status Date / Time No Known Allergies Allergy Verified 03/24/25 08:57 <ROSIE Neal Last Filed: 03/27/25 01:03> Review of Systems 2 Review of Systems: All systems reviewed & are unremarkable except as noted in HPI and below <Kavita Gomez PA-C - Last Filed: 03/27/25 01:03> [facility] Past Medical History Medical History: Medical History Greater trochanter fracture (~01/2024) Non-small cell carcinoma of right lung (~12/2024) Respiratory failure (~10/2024) Hx of malignant neoplasm of prostate GERD without esophagitis Hyperlipidemia Skin cancer History of fracture of left hip COPD (chronic obstructive pulmonary disease) 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 Prostate cancer Recently discovered on biopsy. Apparently low-grade and is being followed by surveillance. Melanoma Melanoma x2 excised from the chest. Anxiety Depression Arthritis Back fracture T12 fracture in 1992. <Kavita Gomez PA-C - Last Filed: 03/27/25 01:03> Surgical History Surgical History: Surgical History History of radical neck dissection 1999; ENT Dr Basurto ([place]/[facility]) Status post-operative repair of closed fracture of left hip Status post surgical removal of malignant neoplasm of skin Including melanoma from the chest and basal cell carcinoma from the cheek and arms. History of back surgery Hx of appendectomy <Kavita Gomez PA-C - Last Filed: 03/27/25 01:03> Family History Family History: Family History Mother Congestive heart failure <Kavita Gomez PA-C - Last Filed: 03/27/25 01:03> Social History Social History: Social History Social History: The patient is to his 3rd and lives in [place]. He has 13 children, youngest is 3. He is retired, worked for the [employer] He designates his , Nicole, as his surrogate decision maker and he wishes to be a full code. Smoking packs per day: 1 Smoking cigarettes per day: 20.0 Years smoked: 55 Smoking pack-years: 55.00 Smoking status: Former smoker Tobacco type: cigarettes Smoking end date: 10/29/24 Alcohol intake: never Substance use: never Substance use type: does not use Last use: oct 29, 2024 Do You Feel Safe in your Home?: Yes Lack of Transportation: No Lack of Food: Never True Current Housing: I Have Housing Concerned About Future Housing: No Difficulty Paying Gas/Electric Bills: No Difficulty Paying for Meds: No Currently Unemployed: No Education: Bachelor's Degree Difficulty w/ Childcare or Family Care: No Living arrangements: with family Additional living arrangements comments: Occupation/Education: retired Gender identity (if verbalized by the patient): Male Sexual Orientation (if Verbalized by the Patient): Straight or Heterosexual Spiritual care concerns: No Agree to blood products: Yes <Kavita Gomez PA-C - Last Filed: 03/27/25 01:03> Exam 2 Narrative: GENERAL: Chronically ill-appearing, thin, and in no acute distress. HEAD: Normocephalic, atraumatic. EYES: EOMI. ENT: Nares clear, no rhinorrhea or epistaxis. Mucous membranes dry. Oropharynx without tonsillar hypertrophy exudate. CHEST: No respiratory distress. Mild scattered wheezing. No rales or rhonchi HEART: Regular rate and rhythm. No murmur heard. Normal peripheral pulses. EXTREMITIES: Normal range of motion. No edema. SKIN: Warm, dry, no rash. NEURO: No focal deficits. Alert and oriented x3. PSYCH: Normal mood and affect <Kavita Gomez PA-C - Last Filed: 03/27/25 01:03> Course Course Emergency Course: Patient updated on his workup and recommendation for admission <ROSIE Neal Last Filed: 03/27/25 01:03> EMPLOYEE RELATION MANAGER/PA Physician Supervision This visit was performed by both a physician and an APC. I performed all aspects of the MDM as documented. <Benja Lloyd MD - Last Filed: 03/27/25 02:54> Consultations Consultation #1: Spoke with Dr. Mariscal about patient and workup. He will consult. Would like Barium swallow ordered for the morning <ROSIE Neal Last Filed: 03/27/25 01:03> Date: 03/27/25 <ROSIE Neal Last Filed: 03/27/25 01:03> Consultation #2: Spoke with hospitalist about patient and workup who accepts admission < ROSIE Neal Last Filed: 03/27/25 01:03> Date: 03/27/25 <ROSIE Neal Last Filed: 03/27/25 01:03> Vital Signs Vital signs: Vital Signs Temperature 37.0 C 03/26/25 23:08 Pulse Rate 83 03/26/25 23:08 Respiratory Rate 20 03/26/25 23:08 Blood Pressure 92/61 L 03/26/25 23:08 Pulse Oximetry 93 03/26/25 23:08 Oxygen Delivery Nasal Cannula 03/26/25 23:08 Oxygen Flow Rate 3 03/26/25 23:08 Temperature 37.1 C 03/27/25 01:26 Pulse Rate 78 03/27/25 01:26 Respiratory Rate 16 03/27/25 01:26 Blood Pressure 111/67 03/27/25 01:26 Pulse Oximetry 95 03/27/25 01:47 Oxygen Delivery Nasal Cannula 03/27/25 01:47 Oxygen Flow Rate 2.5 03/27/25 01:47 <ROSIE Neal Last Filed: 03/27/25 01:03> Vital Signs Temperature 37.0 C 03/26/25 23:08 Pulse Rate 83 03/26/25 23:08 Respiratory Rate 20 03/26/25 23:08 Blood Pressure 92/61 L 03/26/25 23:08 Pulse Oximetry 93 03/26/25 23:08 Oxygen Delivery Nasal Cannula 03/26/25 23:08 Oxygen Flow Rate 3 03/26/25 23:08 Temperature 37.1 C 03/27/25 01:26 Pulse Rate 78 03/27/25 01:26 Respiratory Rate 16 03/27/25 01:26 Blood Pressure 111/67 03/27/25 01:26 Pulse Oximetry 95 03/27/25 01:47 Oxygen Delivery Nasal Cannula 03/27/25 01:47 Oxygen Flow Rate 2.5 03/27/25 01:47 <Benja Lloyd MD - Last Filed: 03/27/25 02:54> MDM - Weakness MDM Narrative Medical decision making narrative: Patient presents emergency department for progressive dysphagia. History of lung cancer, recently finished chemo and radiation. Reports he has lost 60 lb in the last several months, today he got to the point where he couldn't even drink any water. Blood pressure initially soft, this responded IV fluids. The rest of his vitals are stable. Blood work appears stable. Spoke with Dr. Mariscal about patient and workup. He will consult. Would like Barium swallow ordered for the morning. Spoke with hospitalist about patient and workup who accepts admission <Kavita Gomez PA-C - Last Filed: 03/27/25 01:03> Differential Diagnosis Differential diagnosis: Likely dehydration and other (Electrolyte derangement) <Kavita Gomez PA-C - Last Filed: 03/27/25 01:03> Lab Data Attestation: I reviewed the patient's lab results. <Kavita Gomez PA-C - Last Filed: 03/27/25 01:03> Result diagrams: 03/26/25 23:35 03/26/25 23:35 <Kavita Gomez PA-C - Last Filed: 03/27/25 01:03> Labs: Lab Results 03/26/25 Range/Units 23:35 WBC 2.4 L (4.5-10.0) K/mm3 RBC 3.30 L (4.6-6.20) M/mm3 Hgb 9.1 L (14.0-18.0) g/dL Hct 29.3 L (42.0-52.0) % MCV 88.8 (80-100) fl MCH 27.6 (26-34) pg MCHC 31.1 L (32-36) g/dl RDW 19.8 H (11.5-14.5) % Plt Count 255 (150-375) k/mm3 MPV 8.8 (7.4-10.4) fl Immature Gran % (Auto) 0.4 (0-0.5) % Neut % (Auto) 83.8 H (45.5-73.1) % Lymph % (Auto) 7.1 L (18.3-44.2) % Pondera % (Auto) 7.9 (2.6-8.5) % Eos % (Auto) 0.4 (0-4.4) % Baso % (Auto) 0.4 (0.2-1.2) % Lymph # (Auto) 0.17 L (0.9-3.2) K/mm3 Pondera # (Auto) 0.2 (0.1-0.6) K/mm3 Eos # (Auto) 0.0 (0-0.3) K/mm3 Baso # (Auto) 0.0 (0.0-0.1) K/mm3 Abs Immat Gran (auto) 0.01 (0.00-0.031) K/mm3 Absolute Neuts (auto) 2.0 (1.3-6.7) K/mm3 Absolute Nucleated RBC 0.000 (0.0-0.012) K/mm3 Nucleated RBC % 0.0 (0.0-0.2) % Sodium 137 (137-145) mmol/L Potassium 3.7 (3.4-5.0) mmol/L Chloride 100 (98-107) mmol/L Carbon Dioxide 28 (22-30) mmol/L Anion Gap 9 (4-12) mmol/L BUN 28 H (9-20) mg/dL Creatinine 0.98 (0.7-1.3) mg/dL Estim Creat Clear Calc 46 ml/min Estimated GFR > 60 (59 - ) Glucose 114 H (65-110) mg/dL Calcium 8.8 (8.4-10.2) mg/dL Total Bilirubin 1.1 (0.2-1.3) mg/dL AST 24 (17-59) U/L ALT 20 (6-50) U/L Alkaline Phosphatase 74 (38-126) U/L Total Protein 6.3 (6.3-8.2) g/dL Albumin 3.6 (3.5-5.1) g/dL Lipase 34 (23-300) U/L <Kavita Gomez PA-C - Last Filed: 03/27/25 01:03> Lab Results 03/26/25 Range/Units 23:35 WBC 2.4 L (4.5-10.0) K/mm3 RBC 3.30 L (4.6-6.20) M/mm3 Hgb 9.1 L (14.0-18.0) g/dL Hct 29.3 L (42.0-52.0) % MCV 88.8 (80-100) fl MCH 27.6 (26-34) pg MCHC 31.1 L (32-36) g/dl RDW 19.8 H (11.5-14.5) % Plt Count 255 (150-375) k/mm3 MPV 8.8 (7.4-10.4) fl Immature Gran % (Auto) 0.4 (0-0.5) % Neut % (Auto) 83.8 H (45.5-73.1) % Lymph % (Auto) 7.1 L (18.3-44.2) % Pondera % (Auto) 7.9 (2.6-8.5) % Eos % (Auto) 0.4 (0-4.4) % Baso % (Auto) 0.4 (0.2-1.2) % Lymph # (Auto) 0.17 L (0.9-3.2) K/mm3 Pondera # (Auto) 0.2 (0.1-0.6) K/mm3 Eos # (Auto) 0.0 (0-0.3) K/mm3 Baso # (Auto) 0.0 (0.0-0.1) K/mm3 Abs Immat Gran (auto) 0.01 (0.00-0.031) K/mm3 Absolute Neuts (auto) 2.0 (1.3-6.7) K/mm3 Absolute Nucleated RBC 0.000 (0.0-0.012) K/mm3 Nucleated RBC % 0.0 (0.0-0.2) % Sodium 137 (137-145) mmol/L Potassium 3.7 (3.4-5.0) mmol/L Chloride 100 (98-107) mmol/L Carbon Dioxide 28 (22-30) mmol/L Anion Gap 9 (4-12) mmol/L BUN 28 H (9-20) mg/dL Creatinine 0.98 (0.7-1.3) mg/dL Estim Creat Clear Calc 46 ml/min Estimated GFR > 60 (59 - ) Glucose 114 H (65-110) mg/dL Calcium 8.8 (8.4-10.2) mg/dL Total Bilirubin 1.1 (0.2-1.3) mg/dL AST 24 (17-59) U/L ALT 20 (6-50) U/L Alkaline Phosphatase 74 (38-126) U/L Total Protein 6.3 (6.3-8.2) g/dL Albumin 3.6 (3.5-5.1) g/dL Lipase 34 (23-300) U/L <Benja Lloyd MD - Last Filed: 03/27/25 02:54> Critical Care Time Critical Care Time Critical Care Time: No <Kavita Gomez PA-C - Last Filed: 03/27/25 01:03> Discharge Plan Discharge Clinical Impression: Dysphagia <Kavita Gomez PA-C - Last Filed: 03/27/25 01:03> Patient Disposition: Still a Patient <Kavita Gomez PA-C - Last Filed: 03/27/25 01:03> Condition: Stable <Kavita Gomez PA-C - Last Filed: 03/27/25 01:03>
[2025-03-26 23:40] LABS: Hematocrit 29.3 % (42.0-52.0); Hemoglobin 9.1 g/dL (14.0-18.0); Immature Granulocyte Percent A 0.4 % (0-0.5); Lymphocytes Absolute Auto 0.17 K/mm3 (0.9-3.2); Mean Corpuscular HGB Conc 31.1 g/dl (32-36); Mean Corpuscular Hemoglobin 27.6 pg (26-34); Mean Corpuscular Volume 88.8 fl (80-100); Nucleated Red Blood Cells Absolute Auto 0.000 K/mm3 (0.0-0.012); Nucleated Red Blood Cells Perc 0.0 % (0.0-0.2); Platelet Count Result 255 k/mm3 (150-375); Red Blood Count 3.30 M/mm3 (4.6-6.20); White Blood Count 2.4 K/mm3 (4.5-10.0)
--- NOTE | 2025-03-26 23:41 | PC.NURSE ---
Patient unable to provide urine sample at this time. Aware of need for specimen.
[2025-03-26 23:42] VITALS: O2SAT 92
[2025-03-26 23:52] LABS: Alanine Aminotransferase 20 U/L (6-50); Albumin Level 3.6 g/dL (3.5-5.1); Alkaline Phosphatase 74 U/L (38-126); Anion Gap 9 mmol/L (4-12); Aspartate Amino Transferase 24 U/L (17-59); Bilirubin,Total 1.1 mg/dL (0.2-1.3); Blood Urea Nitrogen 28 mg/dL (9-20); Calcium 8.8 mg/dL (8.4-10.2); Carbon Dioxide 28 mmol/L (22-30); Chloride 100 mmol/L (98-107); Estimated CRCL calculation 46 ml/min; Estimated Glomerular Filt Rate > 60; Glucose 114 mg/dL (65-110); Lipase 34 U/L (23-300); Potassium 3.7 mmol/L (3.4-5.0); Sodium 137 mmol/L (137-145); Total Protein 6.3 g/dL (6.3-8.2)
--- OUTSIDE RECORDS SUMMARY | 2025-03-26 23:53 | XMS_ITS | Encounter Summary ---
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 Name Role Phone Unavailable Primary Care Provider Unavailabl e Encounter Details Date Type Department Care Team (Late st Contact Info) Description 03/22/2025 Orders Only [facility] Oncology and Hematology [facility] [address] [place] [address] Nba Ponce MD [address] [place] [address] [employer] [address] [place] [id number] Malignant neoplasm of upper lobe of right lung (CMS/HCC) Social History Tobacco Use Types Packs/Day Years Used Date Smoking Tobacco: Never Smokeless Tobacco: Never Alcohol Use Standard Drinks/Week Comments Never 0 (1 standard drink = 0.6 oz pur e alcohol) Sex and Gender Information Value Date Recorded Sex Assigned at Not on file 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 Gender Identity Not on file Sexual Orientation Not on file documented as of this encounter Plan of Treatment Upcoming Encounters Date Type Department Care Team (Late st Contact Info) Description 04/01/2025 8:45 AM CDT Office Visit [facility] Oncology and Hematology [place] [address] [place] [address] Nba Ponce MD [address] [place] [address] documented as of this encounter Visit Diagnoses Diagnosis Malignant neoplasm of upper lobe of right lung (CMS/HCC) Malignant neoplasm of upper lobe, bronchus or lung documented in this encounter
--- OUTSIDE RECORDS SUMMARY | 2025-03-26 23:53 | XMS_ITS | Clinical Summary ---
Author Organization [facility] Address [address] [place] [address] Care Team Providers Care Front Window Cashier Name Role Phone Unavailable Primary Care Provider Unavailabl e Allergies No known active allergies Medications LORazepam (ATIVAN) 2 mg tablet 09/10/20 21 Active phenelzine (NardiL) 15 mg tablet Take 15 mg by mouth 3 times daily. Active Trelegy Ellipta 100-62.5-25 mcg Disk with Device Take 1 Puff by inhalation daily. 01/14/20 25 Active naloxone (NARCAN) 4 mg/spray Stanton, Non-Aerosol EMERGENCY USE ONLY: Administer 1 spray [...] Department Care Team Description 03/24/2025 Orders Only [facility] Oncology and Hematology - [place] [address] [place] [phone] Nba Ponce MD 03/22/2025 Orders Only [facility] and Hematology - [place] [address] [place] [phone] Nba Ponce MD Malignant neoplasm of upper lobe of right lung (CMS/HCC) 03/18/2025 Orders Only [facility] On[facility] and Hematology - [place] [address] [place] [phone] Nba Ponce MD 03/17/2025 9:45 AM CDT Office Visit [facility] On[facility] and Hematology - [place] [address] [place] [address] Nba Ponce MD Malignant neoplasm of upper lobe of right lung (CMS/HCC) (Primary Dx) 03/16/2025 Orders Only [facility] On[facility] and Hematology - [place] [address] [place] [address] Nba Ponce MD 03/08/2025 Orders Only [facility] On[facility] and Hematology - [place] [address] [place] [phone] Nba Ponce MD Malignant neoplasm of upper lobe of right lung (CMS/HCC) 03/03/2025 Orders Only [facility] On[facility] and Hematology - [place] [address] [place] [address] Nba Ponce MD 03/01/2025 Refill [facility] and Hematology - [place] [address] [place] [address] Nba Ponce MD Malignant neoplasm of upper lobe of right lung (CMS/HCC) 02/26/2025 Orders Only [facility] Oncology and Hematology - [place] [address] [place] [address] Nba Ponce MD 02/24/2025 Orders Only [facility] On[facility] and Hematology - [place] [address] [place] [phone] Nba Ponce MD 02/23/2025 9:00 AM CDT Office Visit [facility] On[facility] and Hematology - [place] [address] Nba Ponce MD Malignant neoplasm of upper lobe of right lung (CMS/HCC) (Primary Dx) 02/22/2025 Orders Only [facility] and H[facility]ology - [place] [address] Nba Ponce MD Malignant neoplasm of upper lobe of right lung (CMS/HCC) 02/17/2025 Abstract [facility] and H[facility] - [place] [address] Nba Ponce MD 02/17/2025 Refill [facility] and H[facility]ology - [place] [address] [place] [phone] Nba Ponce MD Malignant neoplasm of upper lobe of right lung (CMS/HCC) 02/17/2025 Telephone [facility] [address] [place] [address] Nba Ponce MD Hold Chemotherapy/Lab Results 02/11/2025 External Device Data 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, Abstract 02/10/2025 External Device Data 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, Abstract 02/10/2025 Orders Only [facility] [address] [place] [address] Nba Ponce MD Malignant neoplasm of upper lobe of right lung (CMS/HCC) (Primary Dx) 02/09/2025 External Device Data 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, Abstract 02/08/2025 Refill [facility] [address] [place] [phone] Nba Ponce MD Malignant neoplasm of upper lobe of right lung (CMS/HCC) 02/02/2025 Refill [facility] [address] [place] [phone] Nba Ponce MD Malignant neoplasm of upper lobe of right lung (CMS/HCC) (Primary Dx) 01/26/2025 10:00 AM CDT Office Visit [facility] [address] [place] [address] Nba Ponce MD Malignant neoplasm of upper lobe of right lung (CMS/HCC) (Primary Dx) 01/19/2025 External Device Data 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, Abstract 01/19/2025 External Device Data 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, Abstract 01/19/2025 External Device Data 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, Abstract 01/13/2025 11:00 AM CDT Office Visit [facility] [address] [place] [address] Luna Birmingham MD Malignant neoplasm of upper [...] on file 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 Gender Identity Not on file Sexual [...] Description 04/01/2025 8:45 AM CDT Office Visit [facility] On[facility] and Hematology - [place] [address] [facility] [address] [place] [address] Nba Ponce MD [address] [place] [address] Health Maintenance Due Date Last [...] ORDERABLES Final Resu lt [facility] [address] [place] [address], [facility] [address], [address] [place] [address] * [facility] (01/26/2025 12:00 AM CDT) Reason for Study To identify mutations relevant to patient's cancer. 02/04/2025 4:34 PM CDT [facility] Genetic Diseases Assessed Cancer 02/04/2025 4:34 PM CDT [facility] Description of Ranges of DNA Sequences Examined 523 gene liquid biopsy 02/04/2025 4:34 PM CDT [facility] Overall Interpretation positive 02/04/2025 4:34 PM CDT [facility] [email or web address] [id number] [id number] 02/04/2025 4:34 PM CDT [facility] Comment:[facility] link Low Coverage [facility] CARM1, CUL4A, DNMT1, FANCC, FGFR3, GNA11, IMPDH1, KMT2A, MAPK1, MAPK3, MSH3, NFE2L2, NOTCH2, PHLPP2, PIK3R2, PTPRT, RAD51C, RECQL4, RHEB, RHOA, RXRA, SDHAF2, TERT, TGFBR1, TP53, TP63, XBP1, ZNRF3 02/04/2025 4:34 PM CDT [facility] Therapy Count 1 02/04/2025 4:34 PM CDT [facility]: Potential Therapy 1 Gene: [id number]^CHEK2^HGNC Variant: p.R519* Match Type: snvIndel Match Type Description: CHEK2 p.R519* Agent: Olaparib Drug Class: PARP Inhibitor Tissue: Prostate Cancer Association: Response Evidence Status: Consensus Evidence ID: NCCN [id number] Variant: [id number] Label: FDA Off Label FDA Approved?: Yes On label?: No 02/04/2025 4:34 PM CDT [facility] Trial Count 3 02/04/2025 4:34 PM CDT [facility]: Clinical Trial Match 1 Clinical Trial NCT ID: [id number] Clinical Trial Title: A Study of PARG Inhibitor [id number] in Participants With Advanced Solid Tumors Clinical Trial URL: [email or web address] Clinical Phase: Phase 1 Clinical Trial Matches: CHEK2 p.R519* mutation Clinical Trial Distance and Location: [address] [place], [place] 02/04/2025 4:34 PM CDT [facility]: Clinical Trial Match 2 Clinical Trial NCT ID: [id number] Clinical Trial Title: TAPUR: Testing the Use of Food and Drug Administration (FDA) Approved Drugs That Target a Specific Abnormality in a Tumor Gene in People With Advanced Stage Cancer Clinical Trial URL: [email or web address] Clinical Phase: Phase 2 Clinical Trial Matches: CHEK2 p.R519* mutation Clinical Trial Distance and Location: [address], [place], [place] 02/04/2025 4:34 PM CDT [facility]: Clinical Trial Match 3 Clinical Trial NCT ID: [id number] Clinical Trial Title: Study Of ATRN-119 In Patients With Advanced Solid Tumors Clinical Trial URL: [email or web address] Clinical Phase: Phase 1/Phase 2 Clinical Trial Matches: CHEK2 p.R519* mutation, TP53 p.R342* mutation Clinical Trial Distance and Location: [address] [place], [place] 02/04/2025 4:34 PM CDT [facility] Tumor Mutational [place] 5.0 m/MB 02/04/2025 4:34 PM CDT [facility] Microsatellite Instability Note MSI-High not detected 02/04/2025 4:34 PM CDT [facility] Blood specimen (specimen) 01/26/2025 01/28/2025 10:55 PM CDT Narrative This result has genomic variants that were not included in this document. us Nba Ponce MD MOLECULAR ORDERABLES Final Resu lt [facility] [address], [address] [place] [address], [facility] [address], [address] [place] [address] from Last 3 Months Insurance GENERIC MEDICARE MANAGED CARE
--- OUTSIDE RECORDS SUMMARY | 2025-03-26 23:53 | XMS_ITS | Continuity of Care Document ---
Author Name [facility] Organization [facility] Care Team Providers Care Kiln Worker Name Role Phone [facility] Unavailable Unavailable Problems Combined list of problems from Department of Defense and [facility] Affairs facilities. It does not include entries that were removed or entered in error. 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 [facility] Folliculitis Active 1 Condition [facility] Malignant neoplasm of skin Active 1 Condition [facility] Melanoma of Skin Active 1 Condition [facility] Anxiety Disorder NOS Active 2 Condition [facility] Anxiety Disorder * (ICD-9-CM 300.00) Active Condition [facility] Anxiety Disorder NOS Active Condition [facility] Basal cell carcinoma of skin Active Condition [facility] Depression * (ICD-9-CM 300.4/311.) Active Condition [facility] Depression * (ICD-9-CM 311./300.4) Active Condition [facility] Dysthymic Disorder (ICD-9-CM 300.4) Active Condition [facility] Elevated PSA Active Condition [facility] Head and Neck Cancer, Unknown Site [...] Entered By: TIANNA LEBLANC Comment: records scanned [facility] Hyperkalemia * (ICD-9-CM 276.7) Active Condition [facility] Impacted Cerumen Active Condition [facility] Thong [facility] Internal hemorrhoids without mention of complication (ICD-9-CM 455.0) Active Condition [facility] Low Back Pain Active Condition [facility] Major Depressive Disorder, Recurrent Active Condition [facility] Major Depressive Disorder, Recurrent, Severe, without Psychotic Features (ICD-9- Active Condition [facility] Melanoma of Skin Active Condition Dec 21, 2008 Entered By: TIANNA LEBLANC Comment: Dr Day, several removed [facility] Memory loss Active Condition [facility] Mood Disorder NOS Active Condition [facility] Nicotine Dependence Active Condition Dec 21, 2009 Entered By: TIANNA LEBLANC Comment: declines treatment [facility] PANIC D/O W/0 AGORA Active Condition [facility] Personal History of Colonic Polyps Active Condition Nov 08, 2010 Entered By: ROMAINE ROBLES Comment: Due for repeat colonoscopy 08/2011 - 09/2011May 2011 Entered By: ANNMARIE GUARDADO Comment: repeat colonoscopy due in 08/2012 [facility] Prostate cancer Active Condition [facility] Sensory neuropathy Active Condition [facility] Tobacco use Active Condition [facility] Tobacco Use * (ICD-9-CM 305.1) Active Condition [facility] Vitamin D deficiency (SNOMED CT 71910950) Active Condition [facility] Medications Combined list of outpatient medications [...] DAY ORAL ACTIVE CAR FIGUEREDO MD 2018 [facility] Immunizations Combined list of available immunizations from the Department of [facility] and Veterans Affairs facilities. Immunization Series Date Given Administered By Site Reaction Lot Number CVX Code Drug Busgirl Status Comments Source COVID-19 (MODERNA), MRNA, LNP-S, PF, 100 MCG/0.5 ML DOSE 2 2020 207 complet ed MOD; [id number]; 1 [facility] COVID-19 (MODERNA), MRNA, LNP-S, PF, 100 MCG/0.5 ML DOSE 1 2020 207 complet ed MOD; [id number]; 1 [facility] TDAP 2012 115 complet ed Left Deltoid [facility] Social History Combined list of available smoking, tobacco, and other social history from Department of Defense and Veterans Affairs facilities. Social History Type Response Date Comment Sourc e Tobacco smoking status TXIS VA-TOBACCO USE WI 30 MIN OF WAKEUP 01/03/2021 [facility] History of tobacco use VA-TOBACCO USE 30 YEARS OR MORE 01/03/2021 [facility] History of tobacco use VA-TOBACCO USE DAG COATER YES 06/22/2019 [facility] History of tobacco use VA-TOBACCO USER EVERY DAY 02/24/2018 [facility] History of tobacco use TOBACCO USER OFFERED MEDS 11/27/2017 [facility] History of tobacco use QUIT TOBACCO >7 YEARS AGO 11/30/2014 [facility] History of tobacco use CURRENT TOBACCO USER 01/04/2014 [facility] History of tobacco use CURRENT TOBACCO USER 01/20/2013 [facility] History of tobacco use CURRENT TOBACCO USER 06/25/2012 [facility] History of tobacco use CURRENT TOBACCO USER 07/19/2011 [facility] Alonzo Hernandez [facility] History of tobacco use CURRENT TOBACCO USER 07/17/2010 [facility] History of tobacco use CURRENT TOBACCO USER 12/20/2009 [facility] History of tobacco use CURRENT TOBACCO USER 12/21/2008 [facility] History of tobacco use CURRENT TOBACCO USER 10/28/2006 [facility] History of tobacco use PT REFUSED SMOKING CESSATION CLASSES 02/04/2004 [facility] History of tobacco use CURRENT TOBACCO USER 07/03/2001 [facility]
--- OUTSIDE RECORDS SUMMARY | 2025-03-26 23:53 | XMS_ITS | Clinical Summary ---
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
--- OUTSIDE RECORDS SUMMARY | 2025-03-26 23:53 | XMS_ITS | Encounter Summary ---
Author Organization [facility] [employer] [facility] Address [address] [place] [address] Care Team Providers Care Lion Hunter Name Role Phone Unavailable Primary Care Provider Unavailabl e Encounter Details Date Type Department Care Team (Late Contact Info) Description 03/24/2025 Orders Only [facility] [address] [place] [address] Nba Ponce MD [address] [place] [address] [address] [place] [phone] Social History Tobacco Use Types Packs/Day Years Used Date Smoking Tobacco: Never Smokeless Tobacco: Never Alcohol Use Standard Drinks/Week Comments Never 0 (1 standard drink = 0.6 oz pur e alcohol) Sex and Gender Information Value Date Recorded Sex Assigned at Not on file 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 Gender Identity Not on file Sexual Orientation Not on file documented as of this encounter Plan of Treatment Upcoming Encounters Date Type Department Care Team (Late st Contact Info) Description 04/01/2025 8:45 AM CDT Office Visit [facility] Oncology and Hematology [facility] [address] [place] [address] Nba Ponce MD [address] [place] [address] [address] [place] [phone] documented as of this encounter Procedures Procedure Name Priority Date/Time Associated Diagnosis Comments COMPREHENSIVE METABOLIC PANEL Routine 03/24/2025 12:26 PM CDT documented in this encounter Results * COMPREHENSIVE METABOLIC PANEL (03/24/2025 12:26 PM CDT) Blood Nba Ponce MD CHEMISTRY ORDERABLES Final Resu lt documented in this encounter Visit Diagnoses Not on filedocumented in this encounter
[2025-03-27] VITALS (10 sets, daily range): BP systolic 106–114; BP diastolic 56–67; PULSE 68–83; RESP 16–20; TEMP 36.5–37.1; O2SAT 92–98; BMI 17.5
[2025-03-27] MEDS: SODIUM CHLORIDE 0.9% IV 1,000 ML 999 ML IV CONT (00:13)
--- NOTE | 2025-03-27 01:20 | ADMGEN ---
This patient, Rogelio Kearney, was admitted to Medical Room 251-01. Patient/family oriented to hospital policies and general routines including ID bracelet, bed and alarms, visiting hours, pain management, procedures, bathroom and other care routines, personal items, smoking policy, room service/diet, and visiting hours. Information on how to activate the Rapid Response Team has been discussed. Patient/Family are encouraged to report perceived risks to care and to ask questions if they do not understand what they are told or what they should do.
[2025-03-27] MEDS: LACTATED RINGERS 1,000 ML 100 ML IV CONT (01:24)
[2025-03-27 06:31] LABS: Add Urine Microscopic? YES; Appearance Urine Clear (Clear); Glucose Urine UA Negative (Negative); Leukocyte Esterase Ur Negative LEU/UL (Negative); Nitrate Urine Negative (Negative); Specific Grav Ur 1.022 (1.001-1.035)
--- NOTE | 2025-03-27 07:39 | PM.IMHP ---
H&P: HPI History of Present Illness Date/Time: 03/27/25 07:39 Chief Complaint: weakness Narrative: This is a 74-year-old male with PMH/of non-small cell carcinoma RT Lung, GERD, HLD, COPD, prostate ca, melanoma, anxiety/depression, arthritis, back fx-T12 admitted for difficulty swallowing, malnutrition. He was dx with neck ca 25 years ago, chemo/radiation and had been in remission ever since. Around november, he was dx wiuth lung ca and had several rounds of radiation. After each radiation tx session, he was having more and more issues with swallowing. He has lost 60 lbs. His PCP recommended he have a feeding tube placed. He is not able to eat or drink. GI consulted. MBS saturday, meanwhile PPN IV. NPO PEG tube will be scheduled for early next week; otherwise, if endoscopic placement seems challenging, surgical consultation will be requested for a surgically placed gastrostomy. 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 Prostate cancer Recently discovered on biopsy. Apparently low-grade and is being followed by surveillance. Melanoma Melanoma x2 excised from the chest. Anxiety Depression Arthritis Back fracture T12 fracture in 1992. Surgical History Surgical History History of radical neck dissection 1999; ENT Dr Basurto ([facility]) Status post-operative repair of closed fracture of left hip Status post surgical removal of malignant neoplasm of skin Including melanoma from the chest and basal cell carcinoma from the cheek and arms. History of back surgery Hx of appendectomy Family History Family History Mother Congestive heart failure Social History Social History (Reviewed 03/27/25 @ 08:14 by RICHI Jameson Social History: The patient is to his 3rd and lives in [place]. He has 13 children, youngest is 3. He is retired, worked for the [employer]. He designates his , Nicole, as his surrogate decision maker and he wishes to be a full code. Smoking packs per day: 1 Smoking cigarettes per day: 20.0 Years smoked: 55 Smoking pack-years: 55.00 Smoking status: Former smoker Tobacco type: cigarettes Smoking end date: 10/29/24 Alcohol intake: never Substance use: never Substance use type: does not use Last use: oct 29, 2024 Do You Feel Safe in your Home?: Yes Lack of Transportation: No Lack of Food: Never True Current Housing: I Have Housing Concerned About Future Housing: No Difficulty Paying Gas/Electric Bills: No Difficulty Paying for Meds: No Currently Unemployed: No Education: Bachelor's Degree Difficulty w/ Childcare or Family Care: No Living arrangements: with family Additional living arrangements comments: Occupation/Education: retired Gender identity (if verbalized by the patient): Male Sexual Orientation (if Verbalized by the Patient): Straight or Heterosexual Spiritual care concerns: No Agree to blood products: Yes Meds Home Medications and Allergies Home Medications ?Medication ?Instructions ?Recorded ?Confirmed ?Type lorazepam 2 mg tablet 2 mg PO BID PRN Anxiety #60 tabs 11/27/24 03/27/25 Rx phenelzine 15 mg tablet 15 mg PO TID #270 tabs 01/21/25 03/27/25 Rx clotrimazole 10 mg alia 10 mg mucous membrane TID #30 tabs 03/18/25 03/27/25 Rx fluticasone fur. 100 mcg-umeclid 1 inh inhalation Q24H 03/18/25 03/27/25 History 62.5 mcg-vilant 25 mcg inhalat.powder (Trelegy Ellipta) ipratropium 0.5 mg-albuterol 3 mg 3 ml inhalation Q6H PRN shortness 03/18/25 03/27/25 Rx (2.5 mg base)/3 mL nebulization of breath or wheezing #180 mL soln sucralfate 100 mg/mL oral 10 ml PO Q4-5H 03/18/25 03/27/25 History suspension Allergies Allergy/AdvReac Type Severity Reaction Status Date / Time No Known Allergies Allergy Verified 03/24/25 08:57 Vital Signs Vital Signs - 24 hr 03/26/25 23:08 03/26/25 23:42 03/27/25 00:54 Temperature 98.6 F Pulse Rate 83 Respiratory Rate 20 Blood Pressure 92/61 L 106/63 Pulse Oximetry 93 92 93 Oxygen Delivery Nasal Cannula Oxygen Flow Rate 3 3 03/27/25 01:26 03/27/25 01:47 03/27/25 06:11 Temperature 98.8 F 98.0 F Pulse Rate 78 83 Respiratory Rate 16 18 Blood Pressure 111/67 109/61 Pulse Oximetry 95 95 92 Oxygen Delivery Nasal Cannula Oxygen Flow Rate 2.5 Exam Narrative: resting in bed, calm. Const: General: comfortable Resp: Effort & Inspection: normal respiratory effort Auscultation: clear to auscultation bilaterally Cardio: Rate: regular rate Rhythm: regular rhythm GI: GI Palp: Yes Soft to palpation Auscultation: normal bowel sounds Skin: General skin exam: normal color H&P: Results Labs Labs: Short CBC 03/26/25 Range/Units 23:35 WBC 2.4 L (4.5-10.0) K/mm3 Hgb 9.1 L (14.0-18.0) g/dL Hct 29.3 L (42.0-52.0) % Plt Count 255 (150-375) k/mm3 BMP 03/26/25 23:35 Sodium 137 Potassium 3.7 Chloride 100 Carbon Dioxide 28 BUN 28 H Creatinine 0.98 Glucose 114 H Calcium 8.8 Liver Function 03/26/25 Range/Units 23:35 Total Bilirubin 1.1 (0.2-1.3) mg/dL AST 24 (17-59) U/L ALT 20 (6-50) U/L Alkaline Phosphatase 74 (38-126) U/L Albumin 3.6 (3.5-5.1) g/dL Urine 03/27/25 Range/Units 06:20 Urine Color Yellow (Yellow) Urine Appearance Clear (Clear) Urine pH 5.0 (5.0-9.0) Ur Specific [place] 1.022 (1.001-1.035) Urine Protein 1+ H (Negative) mg/dL Urine Glucose (UA) Negative (Negative) mg/dL Assessment and Plan Assessment and plan (1) Anxiety: Code(s): F41.9 - Anxiety disorder, unspecified Status: Acute (2) Depression with anxiety: Code(s): F41.8 - Other specified anxiety disorders Status: Acute (3) GERD without esophagitis: Code(s): K21.9 - Gastro-esophageal reflux disease without esophagitis Status: Acute (4) Dysphagia: Qualifiers: Dysphagia type: oropharyngeal phase Qualified Code(s): R13.12 - Dysphagia, oropharyngeal phase Code(s): R13.10 - Dysphagia, unspecified Status: Acute (5) Non-small cell carcinoma of right lung: Onset Date: ~12/2024 Code(s): C34.91 - Malignant neoplasm of unspecified part of right bronchus or lung Status: Acute (6) COPD (chronic obstructive pulmonary disease): Qualifiers: COPD type: chronic bronchitis Chronic bronchitis type: unspecified Qualified Code(s): J42 - Unspecified chronic bronchitis Code(s): J44.9 - Chronic obstructive pulmonary disease, unspecified Status: Chronic (7) Malnutrition: Code(s): E46 - Unspecified protein-calorie malnutrition Status: Acute Plan his is a 74-year-old male with PMH/of non-small cell carcinoma RT Lung, GERD, HLD, COPD, prostate ca, melanoma, anxiety/depression, arthritis, back fx-T12 admitted for difficulty swallowing, malnutrition. He was dx with neck ca 25 years ago, chemo/radiation and had been in remission ever since. Around november, he was dx wiuth lung ca and had several rounds of radiation. After each radiation tx session, he was having more and more issues with swallowing. He has lost 60 lbs. His PCP recommended he have a feeding tube placed. He is not able to eat or drink. GI consulted. MBS saturday, meanwhile PPN IV. NPO PEG tube will be scheduled for early next week; otherwise, if endoscopic placement seems challenging, surgical consultation will be requested for a surgically placed gastrostomy. GI is consulted for Peg tube possible placement MBS Saturday, meanwhile PPN IV. Quality VTE Prophylaxis VTE prophylaxis: mechanical ordered and pharmacologic ordered Hospitalist MIPS Advance Care Plan I have confirmed that the patient's Advanced Care Plan is present, code status is documented, or surrogate decision maker is listed in patient medical record.: Yes Medication Reconciliation I have utilized all available resources to obtain, update and review the patients current medications (includes all prescriptions, OTC, herbals, cannabis, and nutritional supplements).: Yes
[2025-03-27] MEDS: FLUTICASONE/UMECLIDIN/VILANTER 100-62.5-25 MCG ELLIPTA 1 PUFF INHALATION (08:25)
--- NOTE | 2025-03-27 11:15 | PCSTNOTE ---
Therapist contacted Torsten, Hospitalist, and notified him that we cannot complete the MBS without radiologist and they are working remotely. Cannot recommend Bedside Swallow Eval based on review of chart, recommend NPO with or without alternative feedings at Torsten's discretion until completion of MBS.
--- NOTE | 2025-03-27 12:24 | P.CONGI_ITS ---
Assessment and Plan Assessment and plan (1) Dysphagia: Qualifiers: Dysphagia type: oropharyngeal phase Qualified Code(s): R13.12 - Dysphagia, oropharyngeal phase Code(s): R13.10 - Dysphagia, unspecified Status: Acute Assessment and Plan: Given the patient's history of head and neck cancer 25 years ago, treated with radiation, followed by recent lung cancer treatment involving multiple radiation sessions, his progressively worsening dysphagia to the point of being unable to drink water suggests a radiation-induced esophageal stricture, which can be single, multiple, and complex. To guide therapy, a barium esophagram is essential to delineate the stricture's characteristics, which will tell whether endoscopic esophageal dilatation is a viable option. If the esophagram reveals that dilatation would be too risky or complex, referral to a tertiary care center for esophageal stenting will be considered. Regardless, due to his severe inability to consume liquids, some form of gastrostomy tube for nutritional support is immediately necessary. If the esophagram shows a sufficient esophageal diameter to pass an endoscope, a PEG tube will be scheduled for early next week; otherwise, if endoscopic placement seems challenging, surgical consultation will be requested for a surgically placed gastrostomy. Unfortunately, we will not be able to obtain a barium esophagram until this coming Saturday. In the meantime, will provide him with peripheral parental nutrition. GI Consult Note Consult date/time: 03/27/25 12:24 Reason for consult: Dysphagia HPI: Rogelio Kearney is a 74-year-old man with a significant past medical history of head and neck cancer, diagnosed and treated with chemotherapy and radiation 25 years ago, with a long period of remission. Roughly three months ago, he was diagnosed with lung cancer and subsequently and several courses of radiation therapy. He reports that almost immediately following the initiation of his lung cancer treatment, he began experiencing difficulty swallowing. This dysphagia has steadily worsened, now being unable to take even liquids. He presented last night for admission due to this almost complete inability to drink and profound weakness. 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 Prostate cancer Recently discovered on biopsy. Apparently low-grade and is being followed by surveillance. Melanoma Melanoma x2 excised from the chest. Anxiety Depression Arthritis Back fracture T12 fracture in 1992. Surgical History Surgical History History of radical neck dissection 1999; ENT Dr Basurto ([facility]) Status post-operative repair of closed fracture of left hip Status post surgical removal of malignant neoplasm of skin Including melanoma from the chest and basal cell carcinoma from the cheek and arms. History of back surgery Hx of appendectomy Family History Family History Mother Congestive heart failure Social History Social History Social History: The patient is to his 3rd and lives in [place]. He has 13 children, youngest is 3. He is retired, worked for the [employer]. He designates his , Nicole, as his surrogate decision maker and he wishes to be a full code. Smoking packs per day: 1 Smoking cigarettes per day: 20.0 Years smoked: 55 Smoking pack-years: 55.00 Smoking status: Former smoker Tobacco type: cigarettes Smoking end date: 10/29/24 Alcohol intake: never Substance use: never Substance use type: does not use Last use: oct 29, 2024 Do You Feel Safe in your Home?: Yes Lack of Transportation: No Lack of Food: Never True Current Housing: I Have Housing Concerned About Future Housing: No Difficulty Paying Gas/Electric Bills: No Difficulty Paying for Meds: No Currently Unemployed: No Education: Bachelor's Degree Difficulty w/ Childcare or Family Care: No Living arrangements: with family Additional living arrangements comments: Occupation/Education: retired Gender identity (if verbalized by the patient): Male Sexual Orientation (if Verbalized by the Patient): Straight or Heterosexual Spiritual care concerns: No Agree to blood products: Yes Meds Home Medications and Allergies Home Medications ?Medication ?Instructions ?Recorded ?Confirmed ?Type lorazepam 2 mg tablet 2 mg PO BID PRN Anxiety #60 tabs 11/27/24 03/27/25 Rx phenelzine 15 mg tablet 15 mg PO TID #270 tabs 01/21/25 03/27/25 Rx clotrimazole 10 mg alia 10 mg mucous membrane TID #30 tabs 03/18/25 03/27/25 Rx fluticasone fur. 100 mcg-umeclid 1 inh inhalation Q24H 03/18/25 03/27/25 History 62.5 mcg-vilant 25 mcg inhalat.powder (Trelegy Ellipta) ipratropium 0.5 mg-albuterol 3 mg 3 ml inhalation Q6H PRN shortness 03/18/25 03/27/25 Rx (2.5 mg base)/3 mL nebulization of breath or wheezing #180 mL soln sucralfate 100 mg/mL oral 10 ml PO Q4-5H 03/18/25 03/27/25 History suspension Allergies Allergy/AdvReac Type Severity Reaction Status Date / Time No Known Allergies Allergy Verified 03/24/25 08:57 Vital Signs Vital Signs - 24 hr 03/26/25 23:08 03/26/25 23:42 03/27/25 00:54 Temperature 98.6 F Pulse Rate 83 Respiratory Rate 20 Blood Pressure 92/61 L 106/63 Pulse Oximetry 93 92 93 Oxygen Delivery Nasal Cannula Oxygen Flow Rate 3 3 03/27/25 01:26 03/27/25 01:47 03/27/25 06:11 Temperature 98.8 F 98.0 F Pulse Rate 78 83 Respiratory Rate 16 18 Blood Pressure 111/67 109/61 Pulse Oximetry 95 95 92 Oxygen Delivery Nasal Cannula Oxygen Flow Rate 2.5 03/27/25 07:57 03/27/25 08:00 03/27/25 08:25 Temperature 98.2 F Pulse Rate 68 68 Respiratory Rate 20 20 Blood Pressure 106/62 Pulse Oximetry 97 96 96 Oxygen Delivery Nasal Cannula Nasal Cannula Oxygen Flow Rate 2.5 2 03/27/25 11:52 Temperature 97.7 F Pulse Rate 68 Respiratory Rate 18 Blood Pressure 106/61 Pulse Oximetry 94 Oxygen Delivery Oxygen Flow Rate Exam 2 Const: General: cooperative and healthy appearing Resp: Effort & Inspection: normal respiratory effort and able to speak in complete sentences Auscultation: clear to auscultation bilaterally Cardio: Rate: regular rate Rhythm: regular rhythm GI: Inspection: normal to inspection GI Palp: No No hepatosplenomegaly present Auscultation: normal bowel sounds Rectal Exam: deferred Skin: General skin exam: normal color Psych: Appearance: grossly normal Mental Status: mental status grossly normal Results Labs 03/26/25 23:35 03/26/25 23:35 Labs: Short CBC 03/26/25 Range/Units 23:35 WBC 2.4 L (4.5-10.0) K/mm3 Hgb 9.1 L (14.0-18.0) g/dL Hct 29.3 L (42.0-52.0) % Plt Count 255 (150-375) k/mm3 BMP 03/26/25 23:35 Sodium 137 Potassium 3.7 Chloride 100 Carbon Dioxide 28 BUN 28 H Creatinine 0.98 Glucose 114 H Calcium 8.8 Liver Function 03/26/25 Range/Units 23:35 Total Bilirubin 1.1 (0.2-1.3) mg/dL AST 24 (17-59) U/L ALT 20 (6-50) U/L Alkaline Phosphatase 74 (38-126) U/L Albumin 3.6 (3.5-5.1) g/dL Urine 03/27/25 Range/Units 06:20 Urine Color Yellow (Yellow) Urine Appearance Clear (Clear) Urine pH 5.0 (5.0-9.0) Ur Specific [place] 1.022 (1.001-1.035) Urine Protein 1+ H (Negative) mg/dL Urine Glucose (UA) Negative (Negative) mg/dL
[2025-03-27] MEDS: MULTIVITAMINS IV CONT (13:50)
[2025-03-27] MEDS: [UNRECOGNIZED DRUG - OTHER] IV CONT (13:50)
[2025-03-27] MEDS: CLOTRIMAZOLE 10 MG TROC MUCOUS MEM (14:10)
--- NOTE | 2025-03-27 16:36 | PC.NURSE ---
Pt states that he will just hold the phenelzine while he is here & unable to swallow. He will not be bringing the med to the hospital from home.
[2025-03-28] VITALS (9 sets, daily range): BP systolic 100–116; BP diastolic 55–62; PULSE 66–80; RESP 16–18; TEMP 36.4–36.8; O2SAT 90–97
[2025-03-28] MEDS: [UNRECOGNIZED DRUG - OTHER] IV CONT ×2 (00:26→20:13)
[2025-03-28] MEDS: MULTIVITAMINS IV CONT ×2 (00:26→20:13)
[2025-03-28 05:20] LABS: Hematocrit 24.9 % (42.0-52.0); Hemoglobin 7.7 g/dL (14.0-18.0); Immature Granulocyte Percent A 1.1 % (0-0.5); Lymphocytes Absolute Auto 0.20 K/mm3 (0.9-3.2); Mean Corpuscular HGB Conc 30.9 g/dl (32-36); Mean Corpuscular Hemoglobin 27.9 pg (26-34); Mean Corpuscular Volume 90.2 fl (80-100); Nucleated Red Blood Cells Absolute Auto 0.000 K/mm3 (0.0-0.012); Nucleated Red Blood Cells Perc 0.0 % (0.0-0.2); Platelet Count Result 212 k/mm3 (150-375); Red Blood Count 2.76 M/mm3 (4.6-6.20)
[2025-03-28 05:22] LABS: White Blood Count 1.8 K/mm3 (4.5-10.0)
[2025-03-28 05:35] LABS: Alanine Aminotransferase 13 U/L (6-50); Albumin Level 2.7 g/dL (3.5-5.1); Alkaline Phosphatase 57 U/L (38-126); Anion Gap 2 mmol/L (4-12); Aspartate Amino Transferase 15 U/L (17-59); Bilirubin,Total 0.9 mg/dL (0.2-1.3); Blood Urea Nitrogen 14 mg/dL (9-20); Calcium 7.9 mg/dL (8.4-10.2); Carbon Dioxide 31 mmol/L (22-30); Chloride 103 mmol/L (98-107); Estimated CRCL calculation 81 ml/min; Estimated Glomerular Filt Rate > 60; Glucose 104 mg/dL (65-110); Magnesium 1.8 mg/dL (1.6-2.3); Potassium 3.3 mmol/L (3.4-5.0); Sodium 136 mmol/L (137-145); Total Protein 4.9 g/dL (6.3-8.2)
--- NOTE | 2025-03-28 05:38 | PC.NURSE ---
critical WBC received, provider does not want to be called
[2025-03-28 05:42] LABS: Anisocytosis 1+; Band Neutrophils Percent 0 % (0-6); Hypochromasia 1+; Ovalocytes 1+; Schistocytes Rare
--- NOTE | 2025-03-28 05:53 | PC.NURSE ---
Critical WBC received, pt afebrile and received chemotherapy last week, provider aware but does not want to be notified at this time.
--- NOTE | 2025-03-28 07:36 | PM.IMPN ---
Progress Note: A&P Assessment and Plan (1) Anxiety: Code(s): F41.9 - Anxiety disorder, unspecified Status: Acute (2) Depression with anxiety: Code(s): F41.8 - Other specified anxiety disorders Status: Acute (3) GERD without esophagitis: Code(s): K21.9 - Gastro-esophageal reflux disease without esophagitis Status: Acute (4) Dysphagia: Qualifiers: Dysphagia type: oropharyngeal phase Qualified Code(s): R13.12 - Dysphagia, oropharyngeal phase Code(s): R13.10 - Dysphagia, unspecified Status: Acute (5) Non-small cell carcinoma of right lung: Onset Date: ~12/2024 Code(s): C34.91 - Malignant neoplasm of unspecified part of right bronchus or lung Status: Acute (6) COPD (chronic obstructive pulmonary disease): Qualifiers: COPD type: chronic bronchitis Chronic bronchitis type: unspecified Qualified Code(s): J42 - Unspecified chronic bronchitis Code(s): J44.9 - Chronic obstructive pulmonary disease, unspecified Status: Chronic (7) Malnutrition: Code(s): E46 - Unspecified protein-calorie malnutrition Status: Acute Plan his is a 74-year-old male with PMH/of non-small cell carcinoma RT Lung, GERD, HLD, COPD, prostate ca, melanoma, anxiety/depression, arthritis, back fx-T12 admitted for difficulty swallowing, malnutrition. He was dx with neck ca 25 years ago, chemo/radiation and had been in remission ever since. Around november, he was dx with lung ca and had several rounds of radiation. After each radiation tx session, he was having more and more issues with swallowing. He has lost 60 lbs. His PCP recommended he have a feeding tube placed. He is not able to eat or drink. GI consulted. MBS saturday, meanwhile PPN IV. NPO PEG tube will be scheduled for early next week; otherwise, if endoscopic placement seems challenging, surgical consultation will be requested for a surgically placed gastrostomy. GI is consulted for Peg tube possible placement MBS Saturday, meanwhile PPN IV. 7/6 home meds reviewed and resumed as appropriate continue PPN noted K3.3 - currently receiving PPN IV with electrolyte wbc 1.8 (2.3-2.7- 2.4-1.8) Time Spent With Patient Time with patient: 25 - 35 minutes Subjective Date/time seen: 03/28/25 07:36 Interval history: 74-year-old male with PMH/of non-small cell carcinoma RT Lung, GERD, HLD, COPD, prostate ca, melanoma, anxiety/depression, arthritis, back fx-T12 admitted for difficulty swallowing, malnutrition. He was dx with neck ca 25 years ago, chemo/radiation and had been in remission ever since. GI consulted. MBS saturday, meanwhile PPN IV. NPO 03/28 pt is seen and examined. no acute events overnight. He had BM this morning. Denies pain. Review of Systems Review of Systems: All systems reviewed & are unremarkable except as noted in HPI and below Exam Narrative: resting in bed, calm. Const: General: comfortable Resp: Effort & Inspection: normal respiratory effort Auscultation: clear to auscultation bilaterally Cardio: Rate: regular rate Rhythm: regular rhythm GI: Auscultation: normal bowel sounds Skin: General skin exam: normal color Objective Data Vital Signs Vital Signs: Vital Signs - 24 hr 03/27/25 07:57 03/27/25 08:00 03/27/25 08:25 Temperature 98.2 F Pulse Rate 68 68 Respiratory Rate 20 20 Blood Pressure 106/62 Pulse Oximetry 97 96 96 Oxygen Delivery Nasal Cannula Nasal Cannula Oxygen Flow Rate 2.5 2 03/27/25 11:52 03/27/25 20:00 03/27/25 20:00 Temperature 97.7 F 98.1 F Pulse Rate 68 68 Respiratory Rate 18 18 Blood Pressure 106/61 114/56 L Pulse Oximetry 94 92 92 Oxygen Delivery Nasal Cannula Oxygen Flow Rate 2.5 03/27/25 22:00 03/28/25 00:00 03/28/25 04:00 Temperature 98.2 F 98.2 F 97.8 F Pulse Rate 68 70 67 Respiratory Rate 18 18 18 Blood Pressure 110/61 116/61 107/59 L Pulse Oximetry 98 96 94 Oxygen Delivery Oxygen Flow Rate 03/28/25 06:00 Temperature 97.6 F Pulse Rate 79 Respiratory Rate 18 Blood Pressure 109/59 L Pulse Oximetry 90 Oxygen Delivery Oxygen Flow Rate Intake/Output Intake/Output: Intake & Output 03/25/25 03/26/25 03/27/25 03/28/25 23:59 23:59 23:59 23:59 Intake Total 1244.5 Output Total 425 200 Balance 819.5 -200 Meds/Results Medications: Active Medications Generic Name Dose Route Start Last Admin Trade Name Freq PRN Reason Stop Dose Admin Albuterol/Ipratropium 3 ml 03/27/25 05:26 Ipratropium 0.5 Mg/Albuterol Sulfate 2.5 Mg Ampul.Neb 3 Ml INHALATION Q6HRT PRN shortness of breath or wheezing Clotrimazole 10 mg 03/27/25 09:00 03/27/25 19:56 Clotrimazole 10 Mg Troc MUCOUS MEM Not Given TID V[facility]SI Enoxaparin Sodium 40 mg 03/28/25 09:00 Enoxaparin 40 Mg/0.4 Ml Syringe SUB-Q DAILY [facility] Fluticasone/Umeclidinium/Vilanterol 1 puff 03/27/25 08:00 03/27/25 08:25 Fluticasone/Umeclidin/Vilanter 100-62.5-25 Mcg Ellipta INHALATION 1 puff DAILYRT V[facility] Administration Lactated Ringer's 1,000 mls @ 100 mls/hr 03/27/25 00:35 03/28/25 00:26 Lr - Lactated Ringers Iv IV CONT Not Given .Q10H [facility] Multivitamins 1.25 ml/ 1,002.5 mls @ 100 mls/hr 03/27/25 13:25 03/28/25 00:26 Multivitamins 1.25 ml/ IV CONT 100 mls/hr Dextrose/Lactated Ringer's .Q10H2M [facility] Administration Lorazepam 2 mg 03/27/25 05:26 Lorazepam (*Crx) 1 Mg Tablet PO BID PRN Anxiety Miscellaneous Information 1 each 03/27/25 00:01 Phenelzine 15 Mg Tablet Is Nonformulary, Can Patient Bring From Home? XX 04/26/25 00:00 CLARIFY V[facility] Non-Formulary Medication 15 mg 03/27/25 09:00 Phenelzine PO 04/26/25 08:59 TID V[facility] Labs Labs: Laboratory Results - last 24 hr 03/28/25 04:58 WBC 1.8 L* RBC 2.76 L Hgb 7.7 L Hct 24.9 L MCV 90.2 MCH 27.9 MCHC 30.9 L RDW 19.7 H Plt Count 212 MPV 9.1 Immature Gran % (Auto) 1.1 H Neut % (Auto) 80.9 H Lymph % (Auto) 11.2 L [place] % (Auto) 5.1 Eos % (Auto) 1.1 Baso % (Auto) 0.6 Lymph # (Auto) 0.20 L [place] # (Auto) 0.1 Eos # (Auto) 0.0 Baso # (Auto) 0.0 Abs Immat Gran (auto) 0.02 Absolute Neuts (auto) 1.4 Absolute Nucleated RBC 0.000 Band Neutrophils % 0 Nucleated RBC % 0.0 Platelet Estimate Adequate Hypochromasia 1+ Anisocytosis 1+ Ovalocytes 1+ Schistocytes Rare Sodium 136 L Potassium 3.3 L Chloride 103 Carbon Dioxide 31 H Anion Gap 2 L BUN 14 D Creatinine 0.54 L Estim Creat Clear Calc 81 Estimated GFR > 60 Glucose 104 Calcium 7.9 L Magnesium 1.8 Total Bilirubin 0.9 AST 15 L ALT 13 Alkaline Phosphatase 57 Total Protein 4.9 L Albumin 2.7 L Quality VTE Prophylaxis VTE prophylaxis: mechanical ordered and pharmacologic ordered
--- NOTE | 2025-03-28 08:48 | WPDGIPROGNO ---
Progress Note: A&P Assessment and Plan (1) Dysphagia: Qualifiers: Dysphagia type: oropharyngeal phase Qualified Code(s): R13.12 - Dysphagia, oropharyngeal phase Code(s): R13.10 - Dysphagia, unspecified Status: Acute Assessment and Plan: The patient has severe dysphagia probably from radiation esophagitis/ Stricture. Awaiting barium esophagram tomorrow to decide the best route to place gastrostomy, either endoscopically or surgically. Most likely, he will need special intervention which might include an esophageal stent placement and several esophageal dilatations. Subjective Date/time seen: 03/28/25 08:48 Objective Data Vital Signs Vital Signs: Vital Signs - 24 hr 03/27/25 11:52 03/27/25 20:00 03/27/25 20:00 Temperature 97.7 F 98.1 F Pulse Rate 68 68 Respiratory Rate 18 18 Blood Pressure 106/61 114/56 L Pulse Oximetry 94 92 92 Oxygen Delivery Nasal Cannula Oxygen Flow Rate 2.5 03/27/25 22:00 03/28/25 00:00 03/28/25 04:00 Temperature 98.2 F 98.2 F 97.8 F Pulse Rate 68 70 67 Respiratory Rate 18 18 18 Blood Pressure 110/61 116/61 107/59 L Pulse Oximetry 98 96 94 Oxygen Delivery Oxygen Flow Rate 03/28/25 06:00 03/28/25 08:00 Temperature 97.6 F 97.7 F Pulse Rate 79 80 Respiratory Rate 18 18 Blood Pressure 109/59 L 100/55 L Pulse Oximetry 90 91 Oxygen Delivery Oxygen Flow Rate Intake/Output Intake/Output: Intake & Output 03/25/25 03/26/25 03/27/25 03/28/25 23:59 23:59 23:59 23:59 Intake Total 1244.5 Output Total 425 200 Balance 819.5 -200 Meds/Results Medications: Active Medications Generic Name Dose Route Start Last Admin Trade Name Freq PRN Reason Stop Dose Admin Albuterol/Ipratropium 3 ml 03/27/25 05:26 Ipratropium 0.5 Mg/Albuterol Sulfate 2.5 Mg Ampul.Neb 3 Ml INHALATION Q6HRT PRN shortness of breath or wheezing Clotrimazole 10 mg 03/27/25 09:00 03/27/25 19:56 Clotrimazole 10 Mg Troc MUCOUS MEM Not Given TID VAMSI Enoxaparin Sodium 40 mg 03/28/25 09:00 Enoxaparin 40 Mg/0.4 Ml Syringe SUB-Q DAILY VAMSI Fluticasone/Umeclidinium/Vilanterol 1 puff 03/27/25 08:00 03/27/25 08:25 Fluticasone/Umeclidin/Vilanter 100-62.5-25 Mcg Ellipta INHALATION 1 puff DAILYRT VAMSI Administration Lactated Ringer's 1,000 mls @ 100 mls/hr 03/27/25 00:35 03/28/25 00:26 Lr - Lactated Ringers Iv IV CONT Not Given .Q10H VAMSI Multivitamins 1.25 ml/ 1,002.5 mls @ 100 mls/hr 03/27/25 13:25 03/28/25 00:26 Multivitamins 1.25 ml/ IV CONT 100 mls/hr Dextrose/Lactated Ringer's .Q10H2M VAMSI Administration Lorazepam 2 mg 03/27/25 05:26 Lorazepam (*Crx) 1 Mg Tablet PO BID PRN Anxiety Miscellaneous Information 1 each 03/27/25 00:01 Phenelzine 15 Mg Tablet Is Nonformulary, Can Patient Bring From Home? XX 04/26/25 00:00 CLARIFY [facility] Non-Formulary Medication 15 mg 03/27/25 09:00 Phenelzine PO 04/26/25 08:59 TID [facility] Labs Labs: Laboratory Results - last 24 hr 03/28/25 04:58 WBC 1.8 L* RBC 2.76 L Hgb 7.7 L Hct 24.9 L MCV 90.2 MCH 27.9 MCHC 30.9 L RDW 19.7 H Plt Count 212 MPV 9.1 Immature Gran % (Auto) 1.1 H Neut % (Auto) 80.9 H Lymph % (Auto) 11.2 L [place] % (Auto) 5.1 Eos % (Auto) 1.1 Baso % (Auto) 0.6 Lymph # (Auto) 0.20 L [place] # (Auto) 0.1 Eos # (Auto) 0.0 Baso # (Auto) 0.0 Abs Immat Gran (auto) 0.02 Absolute Neuts (auto) 1.4 Absolute Nucleated RBC 0.000 Band Neutrophils % 0 Nucleated RBC % 0.0 Platelet Estimate Adequate Hypochromasia 1+ Anisocytosis 1+ Ovalocytes 1+ Schistocytes Rare Sodium 136 L Potassium 3.3 L Chloride 103 Carbon Dioxide 31 H Anion Gap 2 L BUN 14 D Creatinine 0.54 L Estim Creat Clear Calc 81 Estimated GFR > 60 Glucose 104 Calcium 7.9 L Magnesium 1.8 Total Bilirubin 0.9 AST 15 L ALT 13 Alkaline Phosphatase 57 Total Protein 4.9 L Albumin 2.7 L
[2025-03-28] MEDS: ENOXAPARIN 40 MG/0.4 ML SYRINGE SUB-Q (09:23)
[2025-03-28] MEDS: CLOTRIMAZOLE 10 MG TROC MUCOUS MEM ×3 (09:23→18:50)
[2025-03-28] MEDS: FLUTICASONE/UMECLIDIN/VILANTER 100-62.5-25 MCG ELLIPTA 1 PUFF INHALATION (09:36)
[2025-03-29 04:55] LABS: Hematocrit 26.0 % (42.0-52.0); Hemoglobin 8.0 g/dL (14.0-18.0); Immature Granulocyte Percent A 0.4 % (0-0.5); Lymphocytes Absolute Auto 0.27 K/mm3 (0.9-3.2); Mean Corpuscular HGB Conc 30.8 g/dl (32-36); Mean Corpuscular Hemoglobin 27.5 pg (26-34); Mean Corpuscular Volume 89.3 fl (80-100); Nucleated Red Blood Cells Absolute Auto 0.000 K/mm3 (0.0-0.012); Nucleated Red Blood Cells Perc 0.0 % (0.0-0.2); Platelet Count Result 215 k/mm3 (150-375); Red Blood Count 2.91 M/mm3 (4.6-6.20); White Blood Count 2.2 K/mm3 (4.5-10.0)
[2025-03-29 05:05] LABS: Alanine Aminotransferase 14 U/L (6-50); Albumin Level 2.7 g/dL (3.5-5.1); Alkaline Phosphatase 56 U/L (38-126); Anion Gap 2 mmol/L (4-12); Aspartate Amino Transferase 18 U/L (17-59); Bilirubin,Total 0.8 mg/dL (0.2-1.3); Blood Urea Nitrogen 8 mg/dL (9-20); Calcium 7.9 mg/dL (8.4-10.2); Carbon Dioxide 32 mmol/L (22-30); Chloride 100 mmol/L (98-107); Estimated CRCL calculation 85 ml/min; Estimated Glomerular Filt Rate > 60; Glucose 104 mg/dL (65-110); Magnesium 1.6 mg/dL (1.6-2.3); Potassium 3.3 mmol/L (3.4-5.0); Sodium 134 mmol/L (137-145); Total Protein 5.0 g/dL (6.3-8.2)
[2025-03-29] MEDS: MULTIVITAMINS IV CONT ×2 (06:03→21:20)
[2025-03-29] MEDS: [UNRECOGNIZED DRUG - OTHER] IV CONT ×2 (06:03→21:20)
[2025-03-29 06:19] VITALS: BP 103/60; PULSE 71; RESP 16; TEMP 36.6; O2SAT 93
--- NOTE | 2025-03-29 07:26 | P.PNIM_ITS ---
Progress Note: A&P Assessment and Plan (1) Anxiety: Code(s): F41.9 - Anxiety disorder, unspecified Status: Acute (2) Depression with anxiety: Code(s): F41.8 - Other specified anxiety disorders Status: Acute (3) GERD without esophagitis: Code(s): K21.9 - Gastro-esophageal reflux disease without esophagitis Status: Acute (4) Dysphagia: Qualifiers: Dysphagia type: oropharyngeal phase Qualified Code(s): R13.12 - Dysphagia, oropharyngeal phase Code(s): R13.10 - Dysphagia, unspecified Status: Acute (5) Non-small cell carcinoma of right lung: Onset Date: ~12/2024 Code(s): C34.91 - Malignant neoplasm of unspecified part of right bronchus or lung Status: Acute (6) COPD (chronic obstructive pulmonary disease): Qualifiers: COPD type: chronic bronchitis Chronic bronchitis type: unspecified Qualified Code(s): J42 - Unspecified chronic bronchitis Code(s): J44.9 - Chronic obstructive pulmonary disease, unspecified Status: Chronic (7) Malnutrition: Code(s): E46 - Unspecified protein-calorie malnutrition Status: Acute Plan This is a 74-year-old male with PMH/of non-small cell carcinoma RT Lung, GERD, HLD, COPD, prostate ca, melanoma, anxiety/depression, arthritis, back fx-T12 admitted for difficulty swallowing, malnutrition. He was dx with neck ca 25 years ago, chemo/radiation and had been in remission ever since. Around november, he was dx with lung ca and had several rounds of radiation. After each radiation tx session, he was having more and more issues with swallowing. He has lost 60 lbs. His PCP recommended he have a feeding tube placed. He is not able to eat or drink. GI consulted. MBS saturday, meanwhile PPN IV. NPO PEG tube will be scheduled for early next week; otherwise, if endoscopic placement seems challenging, surgical consultation will be requested for a surgically placed gastrostomy. GI is consulted for Peg tube possible placement MBS Saturday, meanwhile PPN IV. 7/6 home meds reviewed and resumed as appropriate continue PPN noted K3.3 - currently receiving PPN IV with electrolyte wbc 1.8 (2.3-2.7- 2.4-1.8) 03/29 LabS REVIEWED. hg 8/hct26, wbc 2.2 k 3.3 will replace with IV 40 meq-monitor MBS completed pt didnot pass. awaiting GI recommendations for further care Time Spent With Patient Time with patient: 25 - 35 minutes Subjective Date/time seen: 03/29/25 07:26 Interval history: 74-year-old male with PMH/of non-small cell carcinoma RT Lung, GERD, HLD, COPD, prostate ca, melanoma, anxiety/depression, arthritis, back fx-T12 admitted for difficulty swallowing, malnutrition. He was dx with neck ca 25 years ago, chemo/radiation and had been in remission ever since. GI consulted. MBS Saturday, meanwhile PPN IV. NPO 03/28 pt is seen and examined. no acute events overnight. He had BM this morning. Denies pain. 03/29- MBS today to determine plan of care- endoscopic vs surgical gastrostomy. Pain is alert, comfortable, PPN infusing. Review of Systems Review of Systems: All systems reviewed & are unremarkable except as noted in HPI and below Exam Narrative: resting in bed, calm. Const: General: comfortable Resp: Effort & Inspection: normal respiratory effort Auscultation: clear to auscultation bilaterally Cardio: Rate: regular rate Rhythm: regular rhythm GI: Auscultation: normal bowel sounds Skin: General skin exam: normal color Objective Data Vital Signs Vital Signs: Vital Signs - 24 hr 03/28/25 08:00 03/28/25 08:00 03/28/25 09:36 Temperature 97.7 F Pulse Rate 80 68 Respiratory Rate 18 16 Blood Pressure 100/55 L Pulse Oximetry 91 94 93 Oxygen Delivery Nasal Cannula Nasal Cannula Oxygen Flow Rate 4 2 Fraction of Inspired Oxygen 03/28/25 14:00 03/28/25 20:00 03/28/25 20:21 Temperature 98.1 F 98.1 F Pulse Rate 71 66 Respiratory Rate 18 16 Blood Pressure 103/55 L 101/62 Pulse Oximetry 97 96 95 Oxygen Delivery Nasal Cannula Oxygen Flow Rate 2.5 Fraction of Inspired Oxygen 03/28/25 21:35 03/29/25 06:19 Temperature 97.9 F Pulse Rate 71 Respiratory Rate 16 Blood Pressure 103/60 Pulse Oximetry 96 93 Oxygen Delivery Nasal Cannula Oxygen Flow Rate 2 Fraction of Inspired Oxygen 28 Intake/Output Intake/Output: Intake & Output 03/26/25 03/27/25 03/28/25 03/29/25 23:59 23:59 23:59 23:59 Intake Total 1244.5 1002.5 983.3 Output Total 425 200 200 Balance 819.5 802.5 783.3 Meds/Results Medications: Active Medications Generic Name Dose Route Start Last Admin Trade Name Freq PRN Reason Stop Dose Admin Albuterol/Ipratropium 3 ml 03/27/25 05:26 Ipratropium 0.5 Mg/Albuterol Sulfate 2.5 Mg Ampul.Neb 3 Ml INHALATION Q6HRT PRN shortness of breath or wheezing Clotrimazole 10 mg 03/27/25 09:00 03/28/25 18:50 Clotrimazole 10 Mg Troc MUCOUS MEM 10 mg TID VAMSI Administration Enoxaparin Sodium 40 mg 03/28/25 09:00 03/28/25 09:23 Enoxaparin 40 Mg/0.4 Ml Syringe SUB-Q 40 mg DAILY VAMSI Administration Fluticasone/Umeclidinium/Vilanterol 1 puff 03/27/25 08:00 03/28/25 09:36 Fluticasone/Umeclidin/Vilanter 100-62.5-25 Mcg Ellipta INHALATION 1 puff DAILYRT VAMSI Administration Multivitamins 1.25 ml/ 1,002.5 mls @ 100 mls/hr 03/27/25 13:25 03/29/25 06:03 Multivitamins 1.25 ml/ IV CONT 100 mls/hr Dextrose/Lactated Ringer's .Q10H2M VAMSI Administration Lorazepam 2 mg 03/27/25 05:26 Lorazepam (*Crx) 1 Mg Tablet PO BID PRN Anxiety Miscellaneous Information 1 each 03/27/25 00:01 Phenelzine 15 Mg Tablet Is Nonformulary, Can Patient Bring From Home? XX 04/26/25 00:00 CLARIFY [facility] Non-Formulary Medication 15 mg 03/27/25 09:00 Phenelzine PO 04/26/25 08:59 TID [facility] Labs Labs: Laboratory Results - last 24 hr 03/29/25 04:32 WBC 2.2 L RBC 2.91 L Hgb 8.0 L Hct 26.0 L MCV 89.3 MCH 27.5 MCHC 30.8 L RDW 18.9 H Plt Count 215 MPV 8.7 Immature Gran % (Auto) 0.4 Neut % (Auto) 80.4 H Lymph % (Auto) 12.1 L [place] % (Auto) 5.8 Eos % (Auto) 0.9 Baso % (Auto) 0.4 Lymph # (Auto) 0.27 L [place] # (Auto) 0.1 Eos # (Auto) 0.0 Baso # (Auto) 0.0 Abs Immat Gran (auto) 0.01 Absolute Neuts (auto) 1.8 Absolute Nucleated RBC 0.000 Nucleated RBC % 0.0 Sodium 134 L Potassium 3.3 L Chloride 100 Carbon Dioxide 32 H Anion Gap 2 L BUN 8 L D Creatinine 0.51 L Estim Creat Clear Calc 85 Estimated GFR > 60 Glucose 104 Calcium 7.9 L Magnesium 1.6 Total Bilirubin 0.8 AST 18 ALT 14 Alkaline Phosphatase 56 Total Protein 5.0 L Albumin 2.7 L Quality VTE Prophylaxis VTE prophylaxis: mechanical ordered and pharmacologic ordered
[2025-03-29] MEDS: POTASSIUM CHLORIDE INJ 40 MEQ in SODIUM CHLORIDE 0.9% IV 500 ML 130 MEQ IVPB (10:22)
[2025-03-29] MEDS: ENOXAPARIN 40 MG/0.4 ML SYRINGE SUB-Q (10:22)
[2025-03-29 10:23] VITALS: O2SAT 93
[2025-03-29] MEDS: CLOTRIMAZOLE 10 MG TROC MUCOUS MEM ×3 (10:23→18:06)
--- NOTE | 2025-03-29 10:45 | PCSTNOTE ---
Please refer to the Modified Barium Swallow Evaluation in the EMR. Pt was admitted with a diagnosis of dysphagia; he reported that on he completed 37 radiation treatments to the neck and 6 chemo treatments; he stated he feels like he is starving but cannot swallow. Pt also reported he's had cancer 10 times. He reports a head/neck resection in 1999. Hoarse/raspy vocal quality exhibited. The pt was seated for a lateral view and was presented with 3 ml thin liquid via a spoon and approximately half tsp of pudding via a spoon. The oral stages were WFL. During the pharyngeal stage the following was exhibited: reduced tongue base retraction as evidenced by severe vallecular residue; reduced laryngeal elevation as evidenced by laryngeal penetration during the swallow; reduced laryngeal closure as evidenced by aspiration (copious) during the swallow of thin liquid and pudding consistency; absent epiglottic inversion was also exhibited. At times, the pt appeared to be struggling to initiate a swallow reflex. Copious aspiration occurred; pt was noted to have a cough reflex which cleared a portion of the aspirate as he expectorated contents into emesis basin. Impression: severe dysphagia; due to recent completion of 37 radiation treatments, it is not likely pt will return to oral intake in the near future. Recommendation: ST will begin dysphagia therapy. Non oral means of nutrition is recommended.
[2025-03-29 14:00] VITALS: BP 112/65; PULSE 64; RESP 18; TEMP 36.8; O2SAT 95
[2025-03-29 14:42] VITALS: BMI 17.5
--- NOTE | 2025-03-29 14:54 | WPDGIPROGNO ---
Progress Note: A&P Assessment and Plan (1) Dysphagia: Qualifiers: Dysphagia type: oropharyngeal phase Qualified Code(s): R13.12 - Dysphagia, oropharyngeal phase Code(s): R13.10 - Dysphagia, unspecified Status: Acute Assessment and Plan: Today's modified barium swallow confirmed aspiration, so they couldn't complete the esophagram. We're planning an EGD with PEG placement for tomorrow. If the EGD reveals critical mid or distal esophageal stenosis that isn't safely dilatable, we'll consider a surgical consultation for gastrostomy. Plan EGD and possible PEG placement tomorrow Subjective Date/time seen: 03/29/25 14:54 Objective Data Vital Signs Vital Signs: Vital Signs - 24 hr 03/28/25 20:00 03/28/25 20:21 03/28/25 21:35 Temperature 98.1 F Pulse Rate 66 Respiratory Rate 16 Blood Pressure 101/62 Pulse Oximetry 96 95 96 Oxygen Delivery Nasal Cannula Nasal Cannula Oxygen Flow Rate 2.5 2 Fraction of Inspired Oxygen 28 28 03/29/25 06:19 03/29/25 10:23 03/29/25 14:00 Temperature 97.9 F 98.2 F Pulse Rate 71 64 Respiratory Rate 16 18 Blood Pressure 103/60 112/65 Pulse Oximetry 93 93 95 Oxygen Delivery Nasal Cannula Oxygen Flow Rate 1.5 Fraction of Inspired Oxygen Intake/Output Intake/Output: Intake & Output 03/26/25 03/27/25 03/28/25 03/29/25 23:59 23:59 23:59 23:59 Intake Total 1244.5 1002.5 983.3 Output Total 425 200 200 Balance 819.5 802.5 783.3 Meds/Results Medications: Active Medications Generic Name Dose Route Start Last Admin Trade Name Freq PRN Reason Stop Dose Admin Albuterol/Ipratropium 3 ml 03/27/25 05:26 Ipratropium 0.5 Mg/Albuterol Sulfate 2.5 Mg Ampul.Neb 3 Ml INHALATION Q6HRT PRN shortness of breath or wheezing Clotrimazole 10 mg 03/27/25 09:00 03/29/25 12:25 Clotrimazole 10 Mg Troc MUCOUS MEM 10 mg TID VAMSI Administration Enoxaparin Sodium 40 mg 03/28/25 09:00 03/29/25 10:22 Enoxaparin 40 Mg/0.4 Ml Syringe SUB-Q 40 mg DAILY VAMSI Administration Fluticasone/Umeclidinium/Vilanterol 1 puff 03/27/25 08:00 03/29/25 09:04 Fluticasone/Umeclidin/Vilanter 100-62.5-25 Mcg Ellipta INHALATION Not Given DAILYRT [facility] Multivitamins 1.25 ml/ 1,002.5 mls @ 100 mls/hr 03/27/25 13:25 03/29/25 06:03 Multivitamins 1.25 ml/ IV CONT 100 mls/hr Dextrose/Lactated Ringer's .Q10H2M VAMSI Administration Lorazepam 2 mg 03/27/25 05:26 Lorazepam (*Crx) 1 Mg Tablet PO BID PRN Anxiety Miscellaneous Information 1 each 03/27/25 00:01 Phenelzine 15 Mg Tablet Is Nonformulary, Can Patient Bring From Home? XX 04/26/25 00:00 CLARIFY [facility] Non-Formulary Medication 15 mg 03/27/25 09:00 Phenelzine PO 04/26/25 08:59 TID [facility] Radiology Results: ITS Impressions Modified Barium Swallow 03/29/25 09:31 IMPRESSION: Pharyngeal dysphagia with laryngeal penetration and aspiration. Please correlate with speech pathologist findings and specific feeding recommendations. Labs Labs: Laboratory Results - last 24 hr 03/29/25 04:32 WBC 2.2 L RBC 2.91 L Hgb 8.0 L Hct 26.0 L MCV 89.3 MCH 27.5 MCHC 30.8 L RDW 18.9 H Plt Count 215 MPV 8.7 Immature Gran % (Auto) 0.4 Neut % (Auto) 80.4 H Lymph % (Auto) 12.1 L [place] % (Auto) 5.8 Eos % (Auto) 0.9 Baso % (Auto) 0.4 Lymph # (Auto) 0.27 L [place] # (Auto) 0.1 Eos # (Auto) 0.0 Baso # (Auto) 0.0 Abs Immat Gran (auto) 0.01 Absolute Neuts (auto) 1.8 Absolute Nucleated RBC 0.000 Nucleated RBC % 0.0 Sodium 134 L Potassium 3.3 L Chloride 100 Carbon Dioxide 32 H Anion Gap 2 L BUN 8 L D Creatinine 0.51 L Estim Creat Clear Calc 85 Estimated GFR > 60 Glucose 104 Calcium 7.9 L Magnesium 1.6 Total Bilirubin 0.8 AST 18 ALT 14 Alkaline Phosphatase 56 Total Protein 5.0 L Albumin 2.7 L
[2025-03-29 20:00] VITALS: O2SAT 94
[2025-03-29 20:33] VITALS: BP 107/66; PULSE 63; RESP 14; TEMP 36.8; O2SAT 94
[2025-03-30] VITALS (11 sets, daily range): BP systolic 98–153; BP diastolic 55–87; PULSE 51–87; RESP 16–22; TEMP 36.1–36.6; O2SAT 93–100
[2025-03-30 05:28] LABS: Hematocrit 30.3 % (42.0-52.0); Hemoglobin 9.4 g/dL (14.0-18.0); Immature Granulocyte Percent A 0.4 % (0-0.5); Lymphocytes Absolute Auto 0.47 K/mm3 (0.9-3.2); Mean Corpuscular HGB Conc 31.0 g/dl (32-36); Mean Corpuscular Hemoglobin 27.6 pg (26-34); Mean Corpuscular Volume 88.9 fl (80-100); Nucleated Red Blood Cells Absolute Auto 0.000 K/mm3 (0.0-0.012); Nucleated Red Blood Cells Perc 0.0 % (0.0-0.2); Platelet Count Result 254 k/mm3 (150-375); Red Blood Count 3.41 M/mm3 (4.6-6.20); White Blood Count 2.5 K/mm3 (4.5-10.0)
[2025-03-30 05:45] LABS: Alanine Aminotransferase 17 U/L (6-50); Albumin Level 3.1 g/dL (3.5-5.1); Alkaline Phosphatase 72 U/L (38-126); Anion Gap 2 mmol/L (4-12); Aspartate Amino Transferase 23 U/L (17-59); Bilirubin,Total 0.9 mg/dL (0.2-1.3); Blood Urea Nitrogen 4 mg/dL (9-20); Calcium 8.3 mg/dL (8.4-10.2); Carbon Dioxide 31 mmol/L (22-30); Chloride 101 mmol/L (98-107); Estimated CRCL calculation 82 ml/min; Estimated Glomerular Filt Rate > 60; Glucose 106 mg/dL (65-110); Magnesium 1.6 mg/dL (1.6-2.3); Potassium 3.6 mmol/L (3.4-5.0); Sodium 134 mmol/L (137-145); Total Protein 5.6 g/dL (6.3-8.2)
[2025-03-30] MEDS: MULTIVITAMINS IV CONT (07:22)
[2025-03-30] MEDS: [UNRECOGNIZED DRUG - OTHER] IV CONT (07:22)
--- NOTE | 2025-03-30 07:30 | PC.NURSE ---
Patient off floor to GI lab via wheelchair.
--- NOTE | 2025-03-30 07:59 | WPDANESEPPF ---
Anes - Initial Pre Proc Eval Procedure: Operation Date: 03/30/25 13:30 Proposed Procedures p Esophagogastroduodenoscopy with possible PEG placement - Jcarlos Mariscal MD Date/Time: 03/30/25 07:59 Surgeon: Julian Boyle MD Pre Op Diagnosis: Dysphagia Patient Data Age: 74 Gender: M Height: 1.83 m Weight: 58.6 kg Last Vital Signs Temp 97 F L 03/30/25 05:08 Pulse 78 03/30/25 05:08 Resp 22 H 03/30/25 05:08 BP 153/87 H 03/30/25 05:08 Pulse Ox 94 03/30/25 05:08 O2 Del Method Nasal Cannula 03/29/25 20:00 O2 Flow Rate 1.5 03/29/25 20:00 FiO2 28 03/29/25 20:00 Allergies Allergy/AdvReac Type Severity Reaction Status Date / Time No Known Allergies Allergy Verified 03/24/25 08:57 Home Medications ?Medication ?Instructions ?Recorded ?Confirmed ?Type lorazepam 2 mg tablet 2 mg PO BID PRN Anxiety #60 tabs 11/27/24 03/27/25 Rx phenelzine 15 mg tablet 15 mg PO TID #270 tabs 01/21/25 03/27/25 Rx clotrimazole 10 mg alia 10 mg mucous membrane TID #30 tabs 03/18/25 03/27/25 Rx fluticasone fur. 100 mcg-umeclid 1 inh inhalation Q24H 03/18/25 03/27/25 History 62.5 mcg-vilant 25 mcg inhalat.powder (Trelegy Ellipta) ipratropium 0.5 mg-albuterol 3 mg 3 ml inhalation Q6H PRN shortness 03/18/25 03/27/25 Rx (2.5 mg base)/3 mL nebulization of breath or wheezing #180 mL soln sucralfate 100 mg/mL oral 10 ml PO Q4-5H 03/18/25 03/27/25 History suspension Laboratory Tests 03/30/25 05:10 WBC 2.5 L K/mm3 (4.5-10.0) RBC 3.41 L M/mm3 (4.6-6.20) Hgb 9.4 L g/dL (14.0-18.0) Hct 30.3 L % (42.0-52.0) MCV 88.9 fl (80-100) MCH 27.6 pg (26-34) MCHC 31.0 L g/dl (32-36) RDW 19.3 H % (11.5-14.5) Plt Count 254 k/mm3 (150-375) MPV 8.6 fl (7.4-10.4) Immature Gran % (Auto) 0.4 % (0-0.5) Neut % (Auto) 73.3 H % (45.5-73.1) Lymph % (Auto) 18.7 % (18.3-44.2) [place] % (Auto) 6.4 % (2.6-8.5) Eos % (Auto) 0.8 % (0-4.4) Baso % (Auto) 0.4 % (0.2-1.2) Lymph # (Auto) 0.47 L K/mm3 (0.9-3.2) [place] # (Auto) 0.2 K/mm3 (0.1-0.6) Eos # (Auto) 0.0 K/mm3 (0-0.3) Baso # (Auto) 0.0 K/mm3 (0.0-0.1) Abs Immat Gran (auto) 0.01 K/mm3 (0.00-0.031) Absolute Neuts (auto) 1.8 K/mm3 (1.3-6.7) Absolute Nucleated RBC 0.000 K/mm3 (0.0-0.012) Nucleated RBC % 0.0 % (0.0-0.2) Sodium 134 L mmol/L (137-145) Potassium 3.6 mmol/L (3.4-5.0) Chloride 101 mmol/L (98-107) Carbon Dioxide 31 H mmol/L (22-30) Anion Gap 2 L mmol/L (4-12) BUN 4 L mg/dL (9-20) Creatinine 0.53 L mg/dL (0.7-1.3) Estim Creat Clear Calc 82 ml/min Estimated GFR > 60 (59 - ) Glucose 106 mg/dL (65-110) Calcium 8.3 L mg/dL (8.4-10.2) Magnesium 1.6 mg/dL (1.6-2.3) Total Bilirubin 0.9 mg/dL (0.2-1.3) AST 23 U/L (17-59) ALT 17 U/L (6-50) Alkaline Phosphatase 72 U/L (38-126) Total Protein 5.6 L g/dL (6.3-8.2) Albumin 3.1 L g/dL (3.5-5.1) Patient hx anesthesia problems: none Family hx anesthesia problems: none Results Review: All pre-operative results and documents have been reviewed as part of the pre-operative evaluation. 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 Prostate cancer Recently discovered on biopsy. Apparently low-grade and is being followed by surveillance. Melanoma Melanoma x2 excised from the chest. Anxiety Depression Arthritis Back fracture T12 fracture in 1992. Surgical History Surgical History History of radical neck dissection 1999; ENT Dr Basurto ([place]) Status post-operative repair of closed fracture of left hip Status post surgical removal of malignant neoplasm of skin Including melanoma from the chest and basal cell carcinoma from the cheek and arms. History of back surgery Hx of appendectomy Family History Family History Mother Congestive heart failure Social History Social History Social History: The patient is to his 3rd and lives in [place]. He has 13 children, youngest is 3. He is retired, worked for the [employer]. He designates his , Nicole, as his surrogate decision maker and he wishes to be a full code. Smoking packs per day: 1 Smoking cigarettes per day: 20.0 Years smoked: 55 Smoking pack-years: 55.00 Smoking status: Former smoker Tobacco type: cigarettes Smoking end date: 10/29/24 Alcohol intake: never Substance use: never Substance use type: does not use Last use: oct 29, 2024 Do You Feel Safe in your Home?: Yes Lack of Transportation: No Lack of Food: Never True Current Housing: I Have Housing Concerned About Future Housing: No Difficulty Paying Gas/Electric Bills: No Difficulty Paying for Meds: No Currently Unemployed: No Education: Bachelor's Degree Difficulty w/ Childcare or Family Care: No Living arrangements: with family Additional living arrangements comments: Occupation/Education: retired Gender identity (if verbalized by the patient): Male Sexual Orientation (if Verbalized by the Patient): Straight or Heterosexual Spiritual care concerns: No Agree to blood products: Yes Anes - Eval Final PreProcedure Day of Procedure 03/30/25 07:59 Patient weight: normal and thin Lungs: normal air movement Airway: Mallampati scale class II and special considerations (Facial droop noted. ) Neurological: alert and oriented Last oral intake: >/= 8 hours ASA classification: III Emergent: no Anesthetic plan: proceed Anesthesia type and monitoring: general GIVS and standard monitoring Results Review: All pre-operative results and documents have been reviewed as part of the pre-operative evaluation. COPD quit smoking 10/2024, nonsmall cell lung ca s/p chemo/radiation, now w dyspahgia, hyperlipidemia. Informed Consent: The patient's anesthetic plan and its attendant risks and benefits were discussed with the patient/family/POA. Questions were solicited and answers provided to the satisfaction of the patient/family/POA.
[2025-03-30] MEDS: LACTATED RINGERS 1,000 ML 150 ML IV CONT (08:04)
[2025-03-30] MEDS: ceFAZolin 1 GM/NS 50 ML 1 GM/50 ML BAG IVPB (08:10)
--- NOTE | 2025-03-30 08:48 | WPDGIPROGNO ---
Progress Note: A&P Assessment and Plan (1) Dysphagia: Code(s): R13.10 - Dysphagia, unspecified Status: Acute Assessment and Plan: See endoscopy report. PEG was placed with no complications. Please consult Nutrition Service and start standard feeding formula according to patient's weight and age. The tube can be used at any moment. Subjective Date/time seen: 03/30/25 08:48 Objective Data Vital Signs Vital Signs: Vital Signs - 24 hr 03/29/25 10:23 03/29/25 14:00 03/29/25 20:00 Temperature 98.2 F Pulse Rate 64 Respiratory Rate 18 Blood Pressure 112/65 Pulse Oximetry 93 95 94 Oxygen Delivery Nasal Cannula Nasal Cannula Oxygen Flow Rate 1.5 1.5 Fraction of Inspired Oxygen 28 03/29/25 20:33 03/30/25 05:08 03/30/25 08:02 Temperature 98.2 F 97 F L 97.1 F L Pulse Rate 63 78 87 Respiratory Rate 14 22 H 20 Blood Pressure 107/66 153/87 H 110/55 L Pulse Oximetry 94 94 93 Oxygen Delivery Nasal Cannula Oxygen Flow Rate 1.5 Fraction of Inspired Oxygen Intake/Output Intake/Output: Intake & Output 03/27/25 03/28/25 03/29/25 03/30/25 23:59 23:59 23:59 23:59 Intake Total 1244.5 1002.5 1985.8 1115.8 Output Total 425 200 200 500 Balance 819.5 802.5 1785.8 615.8 Meds/Results Medications: Active Medications Generic Name Dose Route Start Last Admin Trade Name Freq PRN Reason Stop Dose Admin Albuterol/Ipratropium 3 ml 03/27/25 05:26 Ipratropium 0.5 Mg/Albuterol Sulfate 2.5 Mg Ampul.Neb 3 Ml INHALATION Q6HRT PRN shortness of breath or wheezing Clotrimazole 10 mg 03/27/25 09:00 03/30/25 08:42 Clotrimazole 10 Mg Troc MUCOUS MEM Not Given TID VAMSI Enoxaparin Sodium 40 mg 03/28/25 09:00 03/30/25 08:42 Enoxaparin 40 Mg/0.4 Ml Syringe SUB-Q Not Given DAILY VAMSI Fluticasone/Umeclidinium/Vilanterol 1 puff 03/27/25 08:00 03/29/25 09:04 Fluticasone/Umeclidin/Vilanter 100-62.5-25 Mcg Ellipta INHALATION Not Given DAILYRT [facility] Multivitamins 1.25 ml/ 1,002.5 mls @ 100 mls/hr 03/27/25 13:25 03/30/25 07:30 Multivitamins 1.25 ml/ IV CONT 0 mls/hr Dextrose/Lactated Ringer's .Q10H2M VAMSI Infusion Lactated Ringer's 1,000 mls @ 150 mls/hr 03/30/25 07:55 03/30/25 08:44 Lr - Lactated Ringers Iv IV CONT 150 mls/hr .Q6H40M VAMSI Infusion Lorazepam 2 mg 03/27/25 05:26 Lorazepam (*Crx) 1 Mg Tablet PO BID PRN Anxiety Miscellaneous Information 1 each 03/27/25 00:01 Phenelzine 15 Mg Tablet Is Nonformulary, Can Patient Bring From Home? XX 04/26/25 00:00 CLARIFY VAMSI Non-Formulary Medication 15 mg 03/27/25 09:00 Phenelzine PO 04/26/25 08:59 TID [facility] Radiology Results: ITS Impressions Modified Barium Swallow 03/29/25 09:31 IMPRESSION: Pharyngeal dysphagia with laryngeal penetration and aspiration. Please correlate with speech pathologist findings and specific feeding recommendations. Labs Labs: Laboratory Results - last 24 hr 03/30/25 05:10 WBC 2.5 L RBC 3.41 L Hgb 9.4 L Hct 30.3 L MCV 88.9 MCH 27.6 MCHC 31.0 L RDW 19.3 H Plt Count 254 MPV 8.6 Immature Gran % (Auto) 0.4 Neut % (Auto) 73.3 H Lymph % (Auto) 18.7 [place] % (Auto) 6.4 Eos % (Auto) 0.8 Baso % (Auto) 0.4 Lymph # (Auto) 0.47 L [place] # (Auto) 0.2 Eos # (Auto) 0.0 Baso # (Auto) 0.0 Abs Immat Gran (auto) 0.01 Absolute Neuts (auto) 1.8 Absolute Nucleated RBC 0.000 Nucleated RBC % 0.0 Sodium 134 L Potassium 3.6 Chloride 101 Carbon Dioxide 31 H Anion Gap 2 L BUN 4 L Creatinine 0.53 L Estim Creat Clear Calc 82 Estimated GFR > 60 Glucose 106 Calcium 8.3 L Magnesium 1.6 Total Bilirubin 0.9 AST 23 ALT 17 Alkaline Phosphatase 72 Total Protein 5.6 L Albumin 3.1 L
--- NOTE | 2025-03-30 09:25 | PC.NURSE ---
Patient returned to floor via stretcher from GI lab. PEG tube placed, no patient complaints at this time.
[2025-03-30] MEDS: FLUTICASONE/UMECLIDIN/VILANTER 100-62.5-25 MCG ELLIPTA 1 PUFF INHALATION (09:46)
--- NOTE | 2025-03-30 10:47 | PCNFU ---
Nutrition Follow-Up Complete: 1. Severe protein calorie malnutrition related to chronic dysphagia, cancer as evidenced by weight loss 23%/3 months; intakes <75% needs >1 month; severe muscle wasting and fat loss 2. Inability to meet nutrition needs PO related to swallowing difficulties as evidenced by MBS, need for nutrition support Goal: Meet estimated nutrition needs Patient will progressing towards goal. We will continue current goal. Pt current nutrition is Jevity 1.5 at 20 ml/hr advance by 10 ml q 4 hours to goal rate of 55 ml/hr. Last recorded weight is 58.6 kg, stable Bowel Motility: last reported BM 03/29 Labs Reviewed:Cr 0.53, Na 134, Alb 3.1,Hct 30.3, Hgb 9.4 Meds Noted: MVI, Lovenox Skin: WNL Additional Notes: Patient NPO for PEG today. Tube feeding recommendations: Jevity 1.5 at 20ml/hr advance by 10 ml q 4 hours to goal rate of 55 ml/hr with free water flush of 100 ml q 4 hours. Bolus feedings: 300 ml 4 x daily with water flush 100 ml after feedings daily. Tube feedings providing 1800 kcal/77 gm protein/912 ml water. Meeting 100% kcal needs at 30 kcal/kg and 100% protein needs 1.0-1.2 gm/kg. Agree with diet orders. Monitoring diet orders, weights, labs, plan of care every Saturday/ Saturday
--- NOTE | 2025-03-30 12:15 | PM.IMPN ---
Progress Note: A&P Assessment and Plan (1) Anxiety: Code(s): F41.9 - Anxiety disorder, unspecified Status: Acute (2) Depression with anxiety: Code(s): F41.8 - Other specified anxiety disorders Status: Acute (3) GERD without esophagitis: Code(s): K21.9 - Gastro-esophageal reflux disease without esophagitis Status: Acute (4) Dysphagia: Qualifiers: Dysphagia type: oropharyngeal phase Qualified Code(s): R13.12 - Dysphagia, oropharyngeal phase Code(s): R13.10 - Dysphagia, unspecified Status: Acute (5) Non-small cell carcinoma of right lung: Onset Date: ~12/2024 Code(s): C34.91 - Malignant neoplasm of unspecified part of right bronchus or lung Status: Acute (6) COPD (chronic obstructive pulmonary disease): Qualifiers: COPD type: chronic bronchitis Chronic bronchitis type: unspecified Qualified Code(s): J42 - Unspecified chronic bronchitis Code(s): J44.9 - Chronic obstructive pulmonary disease, unspecified Status: Chronic (7) Malnutrition: Code(s): E46 - Unspecified protein-calorie malnutrition Status: Acute Plan This is a 74-year-old male with PMH/of non-small cell carcinoma RT Lung, GERD, HLD, COPD, prostate ca, melanoma, anxiety/depression, arthritis, back fx-T12 admitted for difficulty swallowing, malnutrition. He was dx with neck ca 25 years ago, chemo/radiation and had been in remission ever since. Around november, he was dx with lung ca and had several rounds of radiation. After each radiation tx session, he was having more and more issues with swallowing. He has lost 60 lbs. His PCP recommended he have a feeding tube placed. He is not able to eat or drink. GI consulted. MBS saturday, meanwhile PPN IV. NPO PEG tube will be scheduled for early next week; otherwise, if endoscopic placement seems challenging, surgical consultation will be requested for a surgically placed gastrostomy. GI is consulted for Peg tube possible placement MBS Saturday, meanwhile PPN IV. 7/6 home meds reviewed and resumed as appropriate continue PPN noted K3.3 - currently receiving PPN IV with electrolyte wbc 1.8 (2.3-2.7- 2.4-1.8) 03/29 Labs REVIEWED. hg 8/hct26, wbc 2.2 k 3.3 will replace with IV 40 meq-monitor MBS completed pt did not pass. awaiting GI recommendations for further care 03/[address] Nutritional consult-tube feeding recommendations in place. k is 3.6 Time Spent With Patient Time with patient: 25 - 35 minutes Subjective Date/time seen: 03/30/25 12:15 Interval history: 74-year-old male with PMH/of non-small cell carcinoma RT Lung, GERD, HLD, COPD, prostate ca, melanoma, anxiety/depression, arthritis, back fx-T12 admitted for difficulty swallowing, malnutrition. He was dx with neck ca 25 years ago, chemo/radiation and had been in remission ever since. GI consulted. MBS Saturday, meanwhile PPN IV. NPO 03/28 pt is seen and examined. no acute events overnight. He had BM this morning. Denies pain. 03/29- MBS today to determine plan of care- endoscopic vs surgical gastrostomy. Pain is alert, comfortable, PPN infusing. 03/30 - PEG tube inserted per GI-pt tolerated procedure well. Dietitian consulted ofr tube feeds recommendations. will be here later so education needs to be done about tube feedings,etc. Pt is alert, oriented, no pain. Review of Systems Review of Systems: All systems reviewed & are unremarkable except as noted in HPI and below Exam Narrative: resting in bed, calm. Const: General: comfortable Resp: Effort & Inspection: normal respiratory effort Auscultation: clear to auscultation bilaterally Cardio: Rate: regular rate Rhythm: regular rhythm GI: Auscultation: normal bowel sounds Skin: General skin exam: normal color Objective Data Vital Signs Vital Signs: Vital Signs - 24 hr 03/29/25 14:00 03/29/25 20:00 03/29/25 20:33 Temperature 98.2 F 98.2 F Pulse Rate 64 63 Respiratory Rate 18 14 Blood Pressure 112/65 107/66 Pulse Oximetry 95 94 94 Oxygen Delivery Nasal Cannula Oxygen Flow Rate 1.5 Fraction of Inspired Oxygen 28 03/30/25 05:08 03/30/25 07:15 03/30/25 08:02 Temperature 97 F L 97.1 F L Pulse Rate 78 87 Respiratory Rate 22 H 20 Blood Pressure 153/87 H 110/55 L Pulse Oximetry 94 100 93 Oxygen Delivery Nasal Cannula Nasal Cannula Oxygen Flow Rate 1.5 1.5 Fraction of Inspired Oxygen 03/30/25 08:47 03/30/25 08:57 03/30/25 09:07 Temperature Pulse Rate 72 51 L 57 L Respiratory Rate 19 16 19 Blood Pressure 103/56 L 99/56 L 119/63 Pulse Oximetry 99 100 100 Oxygen Delivery Nasal Cannula Nasal Cannula Nasal Cannula Oxygen Flow Rate 2 2 2 Fraction of Inspired Oxygen 03/30/25 09:48 Temperature Pulse Rate Respiratory Rate Blood Pressure Pulse Oximetry 96 Oxygen Delivery Nasal Cannula Oxygen Flow Rate 2 Fraction of Inspired Oxygen Intake/Output Intake/Output: Intake & Output 03/27/25 03/28/25 03/29/25 03/30/25 23:59 23:59 23:59 23:59 Intake Total 1244.5 1002.5 1985.8 1215.8 Output Total 425 200 200 500 Balance 819.5 802.5 1785.8 715.8 Meds/Results Medications: Active Medications Generic Name Dose Route Start Last Admin Trade Name Freq PRN Reason Stop Dose Admin Albuterol/Ipratropium 3 ml 03/27/25 05:26 Ipratropium 0.5 Mg/Albuterol Sulfate 2.5 Mg Ampul.Neb 3 Ml INHALATION Q6HRT PRN shortness of breath or wheezing Clotrimazole 10 mg 03/27/25 09:00 03/30/25 11:43 Clotrimazole 10 Mg Troc MUCOUS MEM Not Given TID VAMSI Enoxaparin Sodium 40 mg 03/28/25 09:00 03/30/25 08:42 Enoxaparin 40 Mg/0.4 Ml Syringe SUB-Q Not Given DAILY VAMSI Fluticasone/Umeclidinium/Vilanterol 1 puff 03/27/25 08:00 03/30/25 09:46 Fluticasone/Umeclidin/Vilanter 100-62.5-25 Mcg Ellipta INHALATION 1 puff DAILYRT VAMSI Administration Multivitamins 1.25 ml/ 1,002.5 mls @ 100 mls/hr 03/27/25 13:25 07/08/25 09:30 Multivitamins 1.25 ml/ IV CONT 100 mls/hr Dextrose/Lactated Ringer's .Q10H2M VAMSI Infusion Lorazepam 2 mg 03/27/25 05:26 Lorazepam (*Crx) 1 Mg Tablet PO BID PRN Anxiety Radiology Results: ITS Impressions Modified Barium Swallow 03/29/25 09:31 IMPRESSION: Pharyngeal dysphagia with laryngeal penetration and aspiration. Please correlate with speech pathologist findings and specific feeding recommendations. Labs Labs: Laboratory Results - last 24 hr 03/30/25 05:10 WBC 2.5 L RBC 3.41 L Hgb 9.4 L Hct 30.3 L MCV 88.9 MCH 27.6 MCHC 31.0 L RDW 19.3 H Plt Count 254 MPV 8.6 Immature Gran % (Auto) 0.4 Neut % (Auto) 73.3 H Lymph % (Auto) 18.7 [place] % (Auto) 6.4 Eos % (Auto) 0.8 Baso % (Auto) 0.4 Lymph # (Auto) 0.47 L [place] # (Auto) 0.2 Eos # (Auto) 0.0 Baso # (Auto) 0.0 Abs Immat Gran (auto) 0.01 Absolute Neuts (auto) 1.8 Absolute Nucleated RBC 0.000 Nucleated RBC % 0.0 Sodium 134 L Potassium 3.6 Chloride 101 Carbon Dioxide 31 H Anion Gap 2 L BUN 4 L Creatinine 0.53 L Estim Creat Clear Calc 82 Estimated GFR > 60 Glucose 106 Calcium 8.3 L Magnesium 1.6 Total Bilirubin 0.9 AST 23 ALT 17 Alkaline Phosphatase 72 Total Protein 5.6 L Albumin 3.1 L Quality VTE Prophylaxis VTE prophylaxis: mechanical ordered and pharmacologic ordered
[2025-03-31 04:50] VITALS: BP 102/69; PULSE 78; RESP 16; TEMP 36.4; O2SAT 94
[2025-03-31 05:15] LABS: Hematocrit 30.8 % (42.0-52.0); Hemoglobin 9.5 g/dL (14.0-18.0); Immature Granulocyte Percent A 0.9 % (0-0.5); Lymphocytes Absolute Auto 0.54 K/mm3 (0.9-3.2); Mean Corpuscular HGB Conc 30.8 g/dl (32-36); Mean Corpuscular Hemoglobin 27.3 pg (26-34); Mean Corpuscular Volume 88.5 fl (80-100); Nucleated Red Blood Cells Absolute Auto 0.000 K/mm3 (0.0-0.012); Nucleated Red Blood Cells Perc 0.0 % (0.0-0.2); Platelet Count Result 249 k/mm3 (150-375); Red Blood Count 3.48 M/mm3 (4.6-6.20); White Blood Count 3.2 K/mm3 (4.5-10.0)
[2025-03-31 05:35] LABS: Alanine Aminotransferase 17 U/L (6-50); Albumin Level 3.1 g/dL (3.5-5.1); Alkaline Phosphatase 72 U/L (38-126); Anion Gap 4 mmol/L (4-12); Aspartate Amino Transferase 22 U/L (17-59); Bilirubin,Total 0.6 mg/dL (0.2-1.3); Blood Urea Nitrogen 5 mg/dL (9-20); Calcium 8.5 mg/dL (8.4-10.2); Carbon Dioxide 33 mmol/L (22-30); Chloride 98 mmol/L (98-107); Estimated CRCL calculation 76 ml/min; Estimated Glomerular Filt Rate > 60; Glucose 126 mg/dL (65-110); Magnesium 1.6 mg/dL (1.6-2.3); Potassium 3.7 mmol/L (3.4-5.0); Sodium 135 mmol/L (137-145); Total Protein 5.5 g/dL (6.3-8.2)
[2025-03-31] MEDS: FLUTICASONE/UMECLIDIN/VILANTER 100-62.5-25 MCG ELLIPTA 1 PUFF INHALATION (08:43)
[2025-03-31 08:47] VITALS: PULSE 80; RESP 16; O2SAT 93
[2025-03-31] MEDS: ENOXAPARIN 40 MG/0.4 ML SYRINGE SUB-Q (08:49)
[2025-03-31] MEDS: CLOTRIMAZOLE 10 MG TROC MUCOUS MEM ×2 (08:50→12:53)
[2025-03-31 08:55] VITALS: O2SAT 93
--- NOTE | 2025-03-31 13:13 | WPDANESPN ---
Anes - Prog Note Post-Op Date/Time: 03/31/25 13:13 Cardiovascular status: normal Respiratory status: normal Airway patency: baseline Mental status: baseline Post-Op hydration status: normal Vital Signs: Last Vital Signs Temp 36.4 C L 03/31/25 04:50 Pulse 80 03/31/25 08:47 Resp 16 03/31/25 08:47 BP 102/69 03/31/25 04:50 Pulse Ox 93 03/31/25 08:55 O2 Del Method Nasal Cannula 03/31/25 08:55 O2 Flow Rate 1.5 03/31/25 08:55 FiO2 28 03/31/25 08:47 Pain Score (VAS): 1 I/O: Intake & Output 03/30/25 03/31/25 03/31/25 23:59 07:59 15:59 Intake Total 420 0 Output Total 1150 1000 300 Balance -730 -1000 -300 Laboratory Tests 03/31/25 05:06 03/31/25 05:06 03/31/25 05:06 WBC 3.2 L RBC 3.48 L Hgb 9.5 L Hct 30.8 L MCV 88.5 MCH 27.3 MCHC 30.8 L RDW 19.6 H Plt Count 249 MPV 8.7 Immature Gran % (Auto) 0.9 H Neut % (Auto) 73.2 H Lymph % (Auto) 16.9 L [place] % (Auto) 7.8 Eos % (Auto) 0.6 Baso % (Auto) 0.6 Lymph # (Auto) 0.54 L [place] # (Auto) 0.3 Eos # (Auto) 0.0 Baso # (Auto) 0.0 Abs Immat Gran (auto) 0.03 Absolute Neuts (auto) 2.3 Absolute Nucleated RBC 0.000 Nucleated RBC % 0.0 Sodium 135 L Potassium 3.7 Chloride 98 Carbon Dioxide 33 H Anion Gap 4 BUN 5 L Creatinine 0.58 L Estim Creat Clear Calc 76 Estimated GFR > 60 Glucose 126 H Calcium 8.5 Magnesium 1.6 Total Bilirubin 0.6 AST 22 ALT 17 Alkaline Phosphatase 72 Total Protein 5.5 L Albumin 3.1 L Post-procedural complaints: none Patient Feedback: Patient satisfied with anesthetic care.
[2025-03-31 14:37] VITALS: BP 107/62; PULSE 74; RESP 18; TEMP 36.6; O2SAT 96
--- NOTE | 2025-03-31 16:37 | P.DS_ITS ---
DS: Admitting Diagnosis Discharge Date 03/31/2025 Admitting Diagnosis Dysphagia GERD Nonsmall cell carcinoma of right lung copd malnutrition depression with anxiety DS: Discharge Diagnosis Discharge Diagnosis (1) Dysphagia: Qualifiers: Dysphagia type: oropharyngeal phase Qualified Code(s): R13.12 - Dysphagia, oropharyngeal phase Code(s): R13.10 - Dysphagia, unspecified Status: Acute (2) GERD without esophagitis: Code(s): K21.9 - Gastro-esophageal reflux disease without esophagitis Status: Acute (3) Non-small cell carcinoma of right lung: Onset Date: ~12/2024 Code(s): C34.91 - Malignant neoplasm of unspecified part of right bronchus or lung Status: Acute (4) COPD (chronic obstructive pulmonary disease): Qualifiers: COPD type: chronic bronchitis Chronic bronchitis type: unspecified Qualified Code(s): J42 - Unspecified chronic bronchitis Code(s): J44.9 - Chronic obstructive pulmonary disease, unspecified Status: Chronic (5) Malnutrition: Code(s): E46 - Unspecified protein-calorie malnutrition Status: Acute (6) Depression with anxiety: Code(s): F41.8 - Other specified anxiety disorders Status: Acute DS: Summary Hospital Course Reason for hospitalization: Dysphagia GERD Nonsmall cell carcinoma of right lung copd malnutrition depression with anxiety Hospital Course: 74-year-old male with PMH of non-small cell carcinoma RT Lung, GERD, HLD, COPD, prostate ca, melanoma, anxiety/depression, arthritis, and back fx-T12 admitted to the hospital for difficulty swallowing and malnutrition. Patient had been undergoing lung cancer treatment involving multiple radiation sessions which likely has progressively worsened his dysphagia to the point where he is no longer able to eat or drink. GI consulted. And MBS was obtained and showed pharyngeal dysphagia with laryngeal penetration and aspiration. Since the MBS showed aspiration they were unable to complete the esophagogram. Patient then underwent an EGD with PEG tube placement on 03/[address] Mariscal. Nutrition was consulted and patient was started on tube feeds. Patient increased to goal for continuous tube feeds. Transitioned to bolus feeds per nutrition recommendations. Patient again tolerated bolus feeds denying nausea/vomiting/diarrhea and abdominal pain. [facility] reported to patients room to teach him and his about the machines and how to give the tube feeds. Patient and stated understanding. Patient had no complaints at time of discharge denying chest pain, shortness a breath, palpitations, nausea/vomiting, and abdominal pain. Patient discharged home with home health in a stable condition. He is to follow-up with his primary care provider in 1 week. Status at Discharge Functional status at discharge: uses cane/walker Time Spent with Patient Time attestation: Total time spent providing and/or coordinating discharge services: Time spent: Greater than 30 minutes Exam Narrative: AF HR 74 RR 18 Spo2 96 2L NC (baseline) BP 107/62 General: male in no acute respiratory distress who is nontoxic appearing, lying semi recumbent in bed. HEENT: Normocephalic. Atraumatic. Extraocular movement intact. Sclera clear and anicteric. No facial asymmetry. Chest: Lungs are clear to auscultation bilaterally. No wheezes or crackles. CV: Heart was regular rate and rhythm. Abd: Abdomen was soft. Nontender. Nondistended. Positive bowel sounds. Peg tube in place, no signs of infection. Ext: No clubbing, cyanosis, or edema. DP pulses bilaterally. Neuro: Patient is alert and oriented x4. Speech is clear. DS: Data Data Completed and Pending Completed studies during hospitalization: MBS Labs on day of discharge: Labs from last 24 hours 03/31/25 05:06 WBC 3.2 L RBC 3.48 L Hgb 9.5 L Hct 30.8 L MCV 88.5 MCH 27.3 MCHC 30.8 L RDW 19.6 H Plt Count 249 MPV 8.7 Immature Gran % (Auto) 0.9 H Neut % (Auto) 73.2 H Lymph % (Auto) 16.9 L [place] % (Auto) 7.8 Eos % (Auto) 0.6 Baso % (Auto) 0.6 Lymph # (Auto) 0.54 L [place] # (Auto) 0.3 Eos # (Auto) 0.0 Baso # (Auto) 0.0 Abs Immat Gran (auto) 0.03 Absolute Neuts (auto) 2.3 Absolute Nucleated RBC 0.000 Nucleated RBC % 0.0 Sodium 135 L Potassium 3.7 Chloride 98 Carbon Dioxide 33 H Anion Gap 4 BUN 5 L Creatinine 0.58 L Estim Creat Clear Calc 76 Estimated GFR > 60 Glucose 126 H Calcium 8.5 Magnesium 1.6 Total Bilirubin 0.6 AST 22 ALT 17 Alkaline Phosphatase 72 Total Protein 5.5 L Albumin 3.1 L Preliminary micro results at discharge 03/27/25 05:10 Blood Culture - Preliminary Blood 03/27/25 05:10 Blood Culture - Preliminary Blood Discharge Plan Discharge Attending physician on discharge: Tommy Piper Discharging Clinician: Pati Chambers Anticipated Discharge Date/Time: 03/31/25 15:22 Patient Disposition: Home with Home Health Service Activity: as tolerated Diet: tube feeding Discharge Instructions: Discharge disposition: Patient admitted to the hospital for difficulty swallowing Underwent PEG tube placement on 03/30 for tube feeds Continue tube feeds Bolus feedings: 300 ml 4 x daily with water flush 100 ml after feedings daily. Sit up right during and after feedings Monitor tube placement site for signs of infection including redness, pain, or drainage around the tube Monitor blood pressures Take caution while standing, rising, or moving Change positions slowly taking a break between each position change If you standing feel dizzy sit back down and take a break Encouraged to continue with yearly vaccinations Return to the emergency department if he developed sudden shortness of breath, chest pain, nausea, vomiting, upset stomach or intractable diarrhea Return to the emergency department if you develop fever greater than 101.5 Follow-up with the primary care physician within 1-2 weeks Thank you for [facility] for your healthcare needs Per Care Coordination: Patient to have [facility] for PT/OT eval and treat, and fpc. Their phone number is [phone], if you have any questions; they will contact you to schedule their first visit. RN Please fax discharge instructions to [phone]. Patient Instructions: How to Use and Care for Your PEG Tube (DC), PEG (Percutaneous Endoscopic Gastrostomy) Tube Insertion (DC) Patient Language: Upper Sorbian Stand Alone Forms: General Discharge Information Follow-up/Referrals: Pal Matthews MD [Primary Care Provider] - 1 Week Jcarlos Mariscal MD [Physician] - Call for Appointment Discharge Medications: Continued Trelegy Ellipta 100-62.5-25 mcg blister with device 1 inh inhalation Q24H ipratropium-albuterol 0.5 mg-3 mg(2.5 mg base)/3 mL solution for nebulization 3 ml inhalation Q6H PRN (Reason: shortness of breath or wheezing) Qty: 180 1RF sucralfate 100 mg/mL suspension 10 ml PO Q4-5H clotrimazole 10 mg alia 10 mg mucous membrane TID Qty: 30 0RF lorazepam 2 mg tablet 2 mg PO BID PRN (Reason: Anxiety) Qty: 60 2RF Patient Comments: . phenelzine 15 mg tablet 15 mg PO TID Qty: 270 1RF Date of admission: 03/28/25 14:37 Primary Care Provider: Pal Matthews Admitting Provider: Steve Boyle Attending physician on admission: Steve Boyle Condition: Stable Hospitalist MIPS Heart Failure (Exclusion) Patient has history of Heart Transplant or Left Ventricular Assistive Device?: No IF YES, STOP HERE Heart Failure (Qualifier) Patient has current or prior documentation of LVEF less than or equal to 40%, or mod/servere depressed LVSF?: No IF NO, STOP HERE
== END 2025-03-31 17:30 | disposition home health service (06) | DRG 391 ==
LOC: ANHED 23:52 → ANH2MED 03-27 00:53
PROVIDERS: Internal Medicine Gastroenterology; Nurse Practitioner; Admitting Provider Internal Medicine; Emergency Provider Physician Assistant; PCP Family Medicine; Visit Provider Student in an Organized Health Care Education/Training Program
PROC: 0DH63UZ Insertion of Feeding Device into Stomach, Percutaneous Approach (ICD-10-PCS; CPT 43246; principal; 2025-03-30 13:30)
DX: R13.12 Dysphagia, oropharyngeal phase (principal); E43 Unspecified severe protein-calorie malnutrition; Z68.1 Body mass index [BMI] 19.9 or less, adult; C34.91 Malignant neoplasm of unspecified part of right bronchus or lung; T17.390A Other foreign object in larynx causing asphyxiation, initial encounter; K21.00 Gastro-esophageal reflux disease with esophagitis, without bleeding; K22.2 Esophageal obstruction; Y84.2 Radiological procedure and radiotherapy as the cause of abnormal reaction of the patient, or of later complication, without mention of misadventure at the time of the procedure; J44.9 Chronic obstructive pulmonary disease, unspecified; F41.8 Other specified anxiety disorders; E78.5 Hyperlipidemia, unspecified; M19.90 Unspecified osteoarthritis, unspecified site; Z90.49 Acquired absence of other specified parts of digestive tract; Z85.89 Personal history of malignant neoplasm of other organs and systems; Z85.828 Personal history of other malignant neoplasm of skin; Z85.820 Personal history of malignant melanoma of skin; Z85.46 Personal history of malignant neoplasm of prostate; Z92.21 Personal history of antineoplastic chemotherapy; Z87.891 Personal history of nicotine dependence
CPT/HCPCS: 36415; 43246; 74230; 80053; 81001; 83690; 83735; 85025; 87040; 92611; 94640; 96360; 99285; A9270; G0378; J0690; J1650; J2003; J2704; J3480; J7030; J7040; J7120; J7121

== ENCOUNTER 2025-04-12 12:23 | Outpatient (CLI) | payer OTHER, SELFPAY ==
--- NOTE | ~2025-04-12 | DEXA_ITS ---
Bone Density Report Name: YE CORTÉS Age: 74 Sex: Male Ethnicity: White Date of : 1950 Indication: screening for osteoporosis; height loss; Referring Provider: DIONTE GUSMAN Study: Bone densitometry was performed. Exam Date: April 12, 2025 Accession number: [id number] Bone Density: Region BMD T-score Z-score Classification Femoral Neck (Right) 0.610 -2.4 -1.0 Osteopenia Total Hip (Right) 0.839 -1.3 -0.4 Osteopenia World Health Organization criteria for BMD impression classify patients as: Normal (T-score at or above -1.0), Osteopenia (T-score between -1.0 and -2.5), or Osteoporosis (T-score at or below -2.5). 10-year Fracture Risk(1): Major Osteoporotic Fracture 5.3% Hip Fracture 2.3% Reported Risk Factors: [place] (), Neck BMD=0.610, BMI=20.4 (1) FRAX(R) Version 3.08. Fracture probability calculated for an untreated patient. Fracture probability may be lower if the patient has received treatment. Clinical Information Provided by Patient: Patient maximum height was 72.0 No regular weight bearing exercise Does not regularly consume dairy products Impression: The patient has low bone mass, based on the Right Femoral Neck T-score. The patient has an estimated ten-year risk of hip fracture of 2.3% and an estimated ten-year risk of major fracture of 5.3%, based on the WHO FRAX algorithm. Discussion: BONE DENSITY IS LOW AT ONE OR MORE SKELETAL SITES. This patient's lowest T-score is low at one or more skeletal sites. It meets the World Health Organization's (WHO) criteria for ?low bone mass? (T-score between -1.0 and -2.5). The patient's 10-year risk of fracture as calculated by FRAX is less than the threshold where pharmacological therapy is recommended by the National Osteoporosis Foundation (NOF). However, all treatment decisions require clinical judgment and consideration of individual patient factors, including patient preferences, comorbidities, previous drug use, risk factors not captured in the FRAX model (e.g., frailty, falls, vitamin D deficiency, increased bone turnover, interval significant decline in bone density) and possible under or overestimation of fracture risk by FRAX. The patient should follow a healthful lifestyle (good nutrition with adequate calcium and vitamin D, and appropriate weight-bearing exercise). Follow-Up: Consider repeating this study in 2 to 3 years to reassess this patient's status, or sooner if there is some new clinical indication. Reported by: NICOLAS on 04/12/2025 1:03:00 PM. Reviewed, dictated and finalized at location A.
--- OUTSIDE RECORDS SUMMARY | 2025-04-12 12:27 | XMS_ITS | Continuity of Care Document ---
Author Name [facility] Organization [facility] Care Team Providers Care Senior It Security Analyst Name Role Phone [facility] Unavailable Unavailable Problems Combined list of problems from Department of Defense and [facility] Affairs facilities. It does not include entries that were removed or entered in error. 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 [facility] Folliculitis Active 1 Condition [facility] Malignant neoplasm of skin Active 1 Condition [facility] Melanoma of Skin Active 1 Condition [facility] Anxiety Disorder NOS Active 2 Condition [facility] Anxiety Disorder * (ICD-9-CM 300.00) Active Condition [facility] Anxiety Disorder NOS Active Condition [facility] Basal cell carcinoma of skin Active Condition [facility] Depression * (ICD-9-CM 300.4/311.) Active Condition [facility] Depression * (ICD-9-CM 311./300.4) Active Condition [facility] Dysthymic Disorder (ICD-9-CM 300.4) Active Condition [facility] Elevated PSA Active Condition [facility] Head and Neck Cancer, Unknown Site Active Condition Dec 21, 2008 Entered By: TIANNA LEBLANC Comment: has received radiation post neck surgeryDec 21, 2008 Entered By: TIANNA LEBLANC Comment: salivary glands goneDec 21, 2009 Entered By: TIANNA LEBLANC Comment: SCC, necklymph nodes, left nipple,2001Dec 21, 2009 Entered By: [facility] Entered By: TIAN[facility] LEBLANC Comment: records scanned [facility] Hyperkalemia * (ICD-9-CM 276.7) Active Condition [facility] Impacted Cerumen Active Condition [facility] Thong [facility] Internal hemorrhoids without mention of complication (ICD-9-CM 455.0) Active Condition [facility] Low Back Pain Active Condition [facility] Major Depressive Disorder, Recurrent Active Condition [facility] Major Depressive Disorder, Recurrent, Severe, without Psychotic Features (ICD-9- Active Condition [facility] Melanoma of Skin Active Condition Dec 21, 2008 Entered By: TIANNA LEBLANC Comment: Dr Day, several removed [facility] Memory loss Active Condition [facility] Mood Disorder NOS Active Condition [facility] Nicotine Dependence Active Condition Dec 21, 2009 Entered By: TIANNA LEBLANC Comment: declines treatment [facility] PANIC D/O W/0 AGORA Active Condition [facility] Personal History of Colonic Polyps Active Condition Nov 08, 2010 Entered By: ROMAINE ROBLES Comment: Due for repeat colonoscopy 08/2011 - 09/2011May 2011 Entered By: ANNMARIE GUARDADO Comment: repeat colonoscopy due in 08/2012 [facility] Prostate cancer Active Condition [facility] Sensory neuropathy Active Condition [facility] Tobacco use Active Condition [facility] Tobacco Use * (ICD-9-CM 305.1) Active Condition [facility] Vitamin D deficiency (SNOMED CT 10384384) Active Condition [facility] Medications Combined list of [...] DAY ORAL ACTIVE CAR FIGUEREDO MD 2018 [facility] Immunizations Combined list of available immunizations from the Department of [facility] and Veterans Affairs facilities. Immunization Series Date Given Administered By Site Reaction Lot Number CVX Code Drug Foreign Food Cook Specialty Status Comments Source COVID-19 (MODERNA), MRNA, LNP-S, PF, 100 MCG/0.5 ML DOSE 2 2020 207 complet ed MOD; [id number]; 1 [facility] COVID-19 (MODERNA), MRNA, LNP-S, PF, 100 MCG/0.5 ML DOSE 1 2020 207 complet ed MOD; [id number]; 1 [facility] TDAP 2012 115 complet ed Left Deltoid [facility] Procedures Combined list of: 1) Procedures from Department of Veterans Affairs facilities [facility], not all VA non-surgical procedures are included; 2) All procedures from the Department of Defense facilities. Procedure Procedure Type Code Date Perfomer Comments Sourc e COLLECTION OF VENOUS BLOOD B Y VENIPUNCTURE 11/22/2005 [facility] COLLECTION OF VENOUS BLOOD B Y VENIPUNCTURE 05/16/2005 [facility] Social History Combined list of available smoking, tobacco, and other social history from Department of Defense and Veterans Affairs facilities. Social History Type Response Date Comment Sourc e Tobacco smoking status NHIS VA-TOBACCO USE WI 30 MIN OF WAKEUP 01/03/2021 [facility] History of tobacco use VA-TOBACCO USE 30 YEARS OR MORE 01/03/20[address] 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 History of tobacco use VA-TOBACCO USER EVERY DAY 02/24/2018 [facility] History of tobacco use TOBACCO USER OFFERED MEDS 11/27/2017 [facility] History of tobacco use QUIT TOBACCO >7 YEARS AGO 11/30/2014 [facility] History of tobacco use CURRENT TOBACCO USER 01/04/2014 [facility] History of tobacco use CURRENT TOBACCO USER 01/20/2013 [facility] History of tobacco use CURRENT TOBACCO USER 06/25/2012 [facility] History of tobacco use CURRENT TOBACCO USER 07/19/2011 [facility] History of tobacco use CURRENT TOBACCO USER 07/17/2010 [facility] History of tobacco use CURRENT TOBACCO USER 12/20/2009 [facility] History of tobacco use CURRENT TOBACCO USER 12/21/2008 [facility] History of tobacco use CURRENT TOBACCO USER 10/28/2006 [facility] History of tobacco use PT REFUSED SMOKING CESSATION CLASSES 02/04/2004 [facility] History of tobacco use CURRENT TOBACCO USER 07/03/2001 [facility] This section is an empty social history section. DoD
--- OUTSIDE RECORDS SUMMARY | 2025-04-12 12:27 | XMS_ITS | Clinical Summary ---
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
--- OUTSIDE RECORDS SUMMARY | 2025-04-12 12:27 | XMS_ITS | Clinical Summary ---
Author Organization Unknown Care Team Providers Care Medical Liaison Name Role Phone TOMA SAUCEDA, BOY Unavailable Unava ilable ALAYNA PHYSICAL THERAPIST, LISSET Unavailable Unavailable FLORA SPEECH THERAPIST, MS, CCC/SIGNAL SUPERVISOR, RADHA Un available Unavailable GEMINI FILTER PRESS TENDER, MACIEL Unagabriela ailable Unavailable PENNY REGISTERED NURSE SKIDDER DRIVER, DIMA Georgina vailable Unavailable COLÓN OCCUPATIONAL THERAPIST, LISA Unavailable Unavailable Payers Payer Name Policy Type Policy Number Effective Date Expira tion Date [employer] MEDICARE - EPISODIC Problems Condition Name Condition Details Condition Category Status Onset Date Resolution Date Last Treatment Date Treating Clinician Comments UNSPECIFIED PROTEIN-KRANTHI JEFFREY MALNUTRITION Active 7-05 00:00: 00 DYSPHAGIA, OROPHARYNGEA L PHASE Active 09-23 00:00: 00 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 Active 09-23 00:00: 00 GASTRO-ESOPH AGEAL REFLUX DISEASE WITHOUT ESOPHAGITIS Active 09-23 00:00: 00 OTHER SPECIFIED CHRONIC OBSTRUCTIVE PULMONARY DISEASE Active 09-23 00:00: 00 DEPRESSION, UNSPECIFIED Active 09-23 00:00: 00 ANXIETY DISORDER, UNSPECIFIED Active 09-23 00:00: 00 HYPERLIPIDEM IA, UNSPECIFIED Active 09-23 00:00: 00 UNSPECIFIED OSTEOARTHRIT IS, UNSPECIFIED SITE Active 09-23 00:00: 00 PERSONAL HISTORY OF MALIGNANT MELANOMA OF SKIN Active 09-23 00:00: 00 PERSONAL HISTORY OF MALIGNANT NEOPLASM OF PROSTATE Active 09-23 00:00: 00 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 09-23 00:00: 00 PERSONAL HISTORY OF (HEALED) TRAUMATIC FRACTURE Active 09-23 00:00: 00 ACQUIRED ABSENCE OF OTHER SPECIFIED PARTS OF DIGESTIVE TRACT Active 09-23 00:00: 00 GASTROSTOMY STATUS Active 09-23 00:00: 00 PERSONAL HISTORY OF NICOTINE DEPENDENCE Active 09-23 00:00: 00 ACQUIRED ABSENCE OF OTHER PART OF HEAD AND NECK Active 09-23 00:00: 00 DEPENDENCE ON SUPPLEMENTAL OXYGEN Active 09-23 00:00: 00 SENIOR LIVING (CURRENT) USE OF INHALED STEROIDS Active 09-23 00:00: 00 Allergies, Adverse Reactions, Alerts Allergy Name Allergy Type Status Severity Reaction(s) Onset Date Inactive Date Treating Clinician Comments NO KNOWN ALLERGIES Propensity to adverse reactions Active 03-31 10:09: 21 Medications Ordered Medication Name Filled Medication Name Start Date Stop Date Current Medication? Ordering Clinician Indication Dosage Frequency Signature (SIG) Comments Components clotrimazol e 10 mg alia 03-31 00:00: 00 Yes [id number] THRUSH 1 alia 3 TIMES DAILY 1 alia 3 TIMES DAILY (route: mucous membrane) Med Classific ation: Mouth-Thr oat-Denta l - Preparati ons ipratropium 0.5 mg-albutero l 3 mg (2.5 mg base)/3 mL nebulizatio n soln 03-31 00:00: 00 Yes [id number] WHEEZING/SH ORTNES OF BREATH 3 mL EVERY 6 HOURS 3 mL EVERY 6 HOURS (route: inhalation ) Med Classific ation: Respirato ry Therapy Agents Jevity 1.5 Gordo 0.06 gram-1.5 kcal/mL oral liquid 03-30 00:00: 00 Yes [id number] NUTRITION 300 mL 4 TIMES DAILY 300 mL 4 TIMES DAILY (route: oral) Alternate Route: G-TUBE. Med Classific ation: Electroly te Balance-N utritiona l Products lorazepam 2 mg tablet 03-31 00:00: 00 Yes [id number] ANXIETY 1 tablet TWICE DAILY 1 tablet TWICE DAILY (route: oral) Alternate Route: G-TUBE. Med Classific ation: Central Nervous System Agents oxygen gas for inhalation 03-31 00:00: 00 Yes [id number] HYPOXIA 2-3 Liter O2 - CONTINUOUS 2-3 Liter O2 - CONTINUOUS (route: inhalation ) Alternate Route: O2 - NASAL CANNULA. Med Classific ation: Medical Supplies and Durable Medical Equipment (DME) phenelzine 15 mg tablet 03-31 00:00: 00 Yes [id number] ANXIETY 1 tablet 3 TIMES DAILY 1 tablet 3 TIMES DAILY (route: oral) Alternate Route: G-TUBE. Med Classific ation: Central Nervous System Agents sucralfate 100 mg/mL oral suspension 03-31 00:00: 00 Yes [id number] PREVENT ULCERS 10 mL EVERY 4 HOURS 10 mL EVERY 4 HOURS (route: oral) Alternate Route: G-TUBE. Med Classific ation: Gastroint estinal Therapy Agents Trelegy Ellipta 100 mcg-62.5 mcg-25 mcg powder for inhalation 03-31 00:00: 00 Yes [id number] COPD 1 inhalat ion ONCE DAILY 1 inhalation ONCE DAILY (route: inhalation ) Med Classific ation: Respirato ry Therapy Agents Immunizations Ordered Immunization Name Filled Immunization Name Date Status Comments Refusal Reason ASKED PATIENT BUT PATIENT STATES NO VACCINE RECEIVED., N/A 2025-04-03 00:00:00 Vital Signs Vital Name Observation Time Observation Value Commen ts Temperature 2025-04-06 09:21:00.000 97.4 [degF] Temperature 2025-04-03 09:47:00.000 97.9 [degF] BMI (%) 2025-04-03 09:47:00.000 17 kg/m2 Height 2025-04-03 09:47:00.000 72 [in_us] Pulse 2025-04-06 09:21:00.000 81 /min Pulse 2025-04-03 09:47:00.000 83 /min O2 Saturation (%) 2025-04-06 09:21:00.000 96 % O2 Saturation (%) 2025-04-03 09:47:00.000 93 % Respirations 2025-04-06 09:21:00.000 18 /min Respirations 2025-04-03 09:47:00.000 18 /min Weight (lbs) 2025-04-03 09:47:00.000 129 [lb_av] Systolic Blood Pressure 2025-04-06 09:21:00.000 90 mm[ Hg] Systolic Blood Pressure 2025-04-03 09:47:00.000 88 mm[ Hg] Diastolic Blood Pressure 2025-04-06 09:21:00.000 54 mm [Hg] Diastolic Blood Pressure 2025-04-03 09:47:00.000 55 mm [Hg] Plan of Treatment Planned Activity Planned Date Details Comments Future Scheduled Test SKILLED NU RSE TO EDUCATE ON PREPARATION/ADMINISTRATION OF GASTROSTOMY FEEDING. ADMINISTER JEVITY 1.5 KCAL AT A RATE OF 300 ML/HOUR VIA PUSH/GRAVITY 4X DAILY. FLUSH TUBE WITH 50 ML FREE WATER BEFORE AND AFTER EACH FEEDING. NO RESIDUALS ORDERED. SITE TO BE CLEANSED ITH WARM SOAP AND WATER OR STERILE SALINE USING COTTON TIPPED APPLICATOR WITH NEW SPLIT GAUZE TO BE REAPPLIED, SECURED WITH PAPER TAPE. TO BE CHANGED DAILY AND NEEDED FOR SOILAGE OR LOOSENESS. MAY COVER PEG TUBING AND CLAMP WITH DRY DRESSING FOR COMFORT. MAY WEAR ABDOMINAL BINDER. CAREGIVER TO COMPLETE AFTER RETURN DEMONSTATIO OF PROPER TECHNIQUE. MAY ADD 2 PRN VISITS PER MONTH FOR FEEDING TUBE COMPLICATIONS OR SITE COMPLICATIONS. [code = SKILLED NURSE TO EDUCATE ON PREPARATION/ADMINISTRATION OF GASTROSTOMY FEEDING. ADMINISTER JEVITY 1.5 KCAL AT A RATE OF 300 ML/HOUR VIA PUSH/GRAVITY 4X DAILY. FLUSH TUBE WITH 50 ML FREE WATER BEFORE AND AFTER EACH FEEDING. NO RESIDUALS ORDERED. SITE TO BE CLEANSED ITH WARM SOAP AND WATER OR STERILE SALINE USING COTTON TIPPED APPLICATOR WITH NEW SPLIT GAUZE TO BE REAPPLIED, SECURED WITH PAPER TAPE. TO BE CHANGED DAILY AND NEEDED FOR SOILAGE OR LOOSENESS. MAY COVER PEG TUBING AND CLAMP WITH DRY DRESSING FOR COMFORT. MAY WEAR ABDOMINAL BINDER. CAREGIVER TO COMPLETE AFTER RETURN DEMONSTATIO OF PROPER TECHNIQUE. MAY ADD 2 PRN VISITS PER MONTH FOR FEEDING TUBE COMPLICATIONS OR SITE COMPLICATIONS.] Future Scheduled Test [facility] TIFYING PHYSICIAN, ASSOCIATED PHYSICIAN, NPP OR PA WITHIN THE SAME GROUP MAY APPROVE AND SIGN THE ORDER (ON ANY PAGE) ATTESTING THAT THE COMPREHENSIVE OUTCOME ASSESSMENTS, EVALUATIONS, AND HOME HEALTH CERTIFICATION PLANS SUPPORT HOMEBOUND STATUS. HOME HEALTH WEB-PORTAL DOCUMENTATION ACCESSED BY THE PHYSICIAN MUST BE INCORPORATED INTO THE MEDICAL RECORD TO CORROBORATE THE PHYSICIAN, NPP, OR PAS F2F ENCOUNTER TO SUPPORT ELIGIBILITY FOR HOME HEALTH SERVICES. [code = THE CERTIFYING PHYSICIAN, ASSOCIATED PHYSICIAN, NPP OR PA WITHIN THE SAME GROUP MAY APPROVE AND SIGN THE ORDER (ON ANY PAGE) ATTESTING THAT THE COMPREHENSIVE OUTCOME ASSESSMENTS, EVALUATIONS, AND HOME HEALTH CERTIFICATION PLANS SUPPORT HOMEBOUND STATUS. HOME HEALTH WEB-PORTAL DOCUMENTATION ACCESSED BY THE PHYSICIAN MUST BE INCORPORATED INTO THE MEDICAL RECORD TO CORROBORATE THE PHYSICIAN, NPP, OR PAS F2F ENCOUNTER TO SUPPORT ELIGIBILITY FOR HOME HEALTH SERVICES.] Future Scheduled Test EACH ORDER ED IN-HOME OR TELEHEALTH VISIT, THE SKILLED NURSE WILL CONDUCT A COMPREHENSIVE ASSESSMENT INCLUDING VITAL SIGNS, PAIN, SAFETY, MENTAL/COGNITIVE/PSYCHOSOCIAL STATUS, MED MANAGEMENT, NUTRITION, SKIN INTEGRITY, PRESSURE ULCER PREVENTION, AND PATIENT/CAREGIVER ABILITY TO SUPPORT ORDERED CARE. SKILLED NURSE WILL INSTRUCT ON DISEASE PROCESS, MED MGMT., FALL PREVENTION AND SAFETY, INFECTION CONTROL AND PREVENTION, WARNING SIGNS, ADDRESS RESULTS OUTSIDE OF ORDERED PARAMETERS LISTED ON CARE PLAN, AND COORDINATE DISCHARGE WITH THE TREATING PROVIDER. MAY ACCEPT ORDERS FROM THE FOLLOWING PROVIDER(S) WHO WILL BE CONSULTING ON THE CERTIFIED CARE PLAN: DR. DIONTE HINOJOSA, DR. BOY CHUA AND ANYONE COVERING IN THEIR ABSENCE [code = EACH ORDERED IN-HOME OR TELEHEALTH VISIT, THE SKILLED NURSE WILL CONDUCT A COMPREHENSIVE ASSESSMENT INCLUDING VITAL SIGNS, PAIN, SAFETY, MENTAL/COGNITIVE/PSYCHOSOCIAL STATUS, MED MANAGEMENT, NUTRITION, SKIN INTEGRITY, PRESSURE ULCER PREVENTION, AND PATIENT/CAREGIVER ABILITY TO SUPPORT ORDERED CARE. SKILLED NURSE WILL INSTRUCT ON DISEASE PROCESS, MED MGMT., FALL PREVENTION AND SAFETY, INFECTION CONTROL AND PREVENTION, WARNING SIGNS, ADDRESS RESULTS OUTSIDE OF ORDERED PARAMETERS LISTED ON CARE PLAN, AND COORDINATE DISCHARGE WITH THE TREATING PROVIDER. MAY ACCEPT ORDERS FROM THE FOLLOWING PROVIDER(S) WHO WILL BE CONSULTING ON THE CERTIFIED CARE PLAN: DR. DIONTE HINOJOSA, DR. BOY CHUA AND ANYONE COVERING IN THEIR ABSENCE] Future Scheduled Test PATIENT RE QUIRED A DELAY IN THE HOME HEALTH START OF CARE/RESUMPTION OF CARE. THE DELAY(S) REQUIRED A NOTIFICATION AND APPROVAL BY THE PHYSICIAN OR ALLOWABLE PRACTITIONER WHICH WAS DONE ON 04/01/25 THE NEW PHYSICIAN ORDERED START OF CARE/RESUMPTION OF CARE DATE(S) 04/03/25 PATIENTS REASON(S) TO DELAY HOME HEALTH INCLUDED PTNT REQUEST [code = PATIENT REQUIRED A DELAY IN THE HOME HEALTH START OF CARE/RESUMPTION OF CARE. THE DELAY(S) REQUIRED A NOTIFICATION AND APPROVAL BY THE PHYSICIAN OR ALLOWABLE PRACTITIONER WHICH WAS DONE ON 04/01/25 THE NEW PHYSICIAN ORDERED START OF CARE/RESUMPTION OF CARE DATE(S) 04/03/25 PATIENTS REASON(S) TO DELAY HOME HEALTH INCLUDED PTNT REQUEST] Future Scheduled Test SKILLED NU RSE TO OBSERVE AND ASSESS PATIENT WITH GENERALIZED DEPRESSION AND TEACH DEPRESSIVE SYMPTOMS. [code = SKILLED NURSE TO OBSERVE AND ASSESS PATIENT WITH GENERALIZED DEPRESSION AND TEACH DEPRESSIVE SYMPTOMS.] Future Scheduled Test SKILLED NU RSE TO ASSESS PATIENT WITH ANXIETY DISORDER AND TEACH SYMPTOMS OF ANXIETY. [code = SKILLED NURSE TO ASSESS PATIENT WITH ANXIETY DISORDER AND TEACH SYMPTOMS OF ANXIETY.] Future Scheduled Test HOME HEALT H NURSE WILL TEACH PATIENT/CAREGIVER ABOUT THE USE OF A SYMPTOM LOG TO MONITOR PHYSICAL SIDE EFFECTS. HOME HEALTH NURSE WILL MONITOR THE RECORDED SYMPTOM LOG AND INFORM THE PHYSICIAN OF SYMPTOMS SO CHANGES CAN BE MADE WITH PRESCRIBED MEDICATIONS/TREATMENTS TO ALLEVIATE DISCOMFORT. [code = HOME HEALTH NURSE WILL TEACH PATIENT/CAREGIVER ABOUT THE USE OF A SYMPTOM LOG TO MONITOR PHYSICAL SIDE EFFECTS. HOME HEALTH NURSE WILL MONITOR THE RECORDED SYMPTOM LOG AND INFORM THE PHYSICIAN OF SYMPTOMS SO CHANGES CAN BE MADE WITH PRESCRIBED MEDICATIONS/TREATMENTS TO ALLEVIATE DISCOMFORT.] Future Scheduled Test HOME HEALT H NURSE WILL INSTRUCT PATIENT/CAREGIVER ON NON-SMALL CELL CARCINOMA RIGHT LUNG, SYMPTOMS A RESULT OF THE CANCER, USE OF SYMPTOM LOG, AND WHEN TO CALL THE ORDERING PROVIDER TO PROMOTE COMFORT. [code = HOME HEALTH NURSE WILL INSTRUCT PATIENT/CAREGIVER ON NON-SMALL CELL CARCINOMA RIGHT LUNG, SYMPTOMS A RESULT OF THE CANCER, USE OF SYMPTOM LOG, AND WHEN TO CALL THE ORDERING PROVIDER TO PROMOTE COMFORT.] Future Scheduled Test HOME HEALT H NURSE TO INSTRUCT PATIENT/CAREGIVER ON HYPOTENSION, SIGNS AND SYMPTOMS TO REPORT, TO KEEP A VITAL SIGN LOG, TO MONITOR BLOOD PRESSURE SIT TO STAND, AND TO ADDRESS DIETARY NEEDS TO HELP DECREASE SIGNS AND SYMPTOMS RELATED TO HYPOTENSION. [code = HOME HEALTH NURSE TO INSTRUCT PATIENT/CAREGIVER ON HYPOTENSION, SIGNS AND SYMPTOMS TO REPORT, TO KEEP A VITAL SIGN LOG, TO MONITOR BLOOD PRESSURE SIT TO STAND, AND TO ADDRESS DIETARY NEEDS TO HELP DECREASE SIGNS AND SYMPTOMS RELATED TO HYPOTENSION.] Future Scheduled Test HOME HEALT H NURSE TO INSTRUCT PATIENT/CAREGIVER ON THE TYPE OF OXYGEN SUPPLY SYSTEM, BREATHING DEVICE, OXYGEN SAFETY, CLEANING OF OXYGEN SUPPLIES, EMERGENCY PREPAREDNESS TIPS WHEN MANAGING OXYGEN NEEDS, SIGNS OR SYMPTOMS TO CONTACT THE AGENCY OR PHYSICIAN. [code = HOME HEALTH NURSE TO INSTRUCT PATIENT/CAREGIVER ON THE TYPE OF OXYGEN SUPPLY SYSTEM, BREATHING DEVICE, OXYGEN SAFETY, CLEANING OF OXYGEN SUPPLIES, EMERGENCY PREPAREDNESS TIPS WHEN MANAGING OXYGEN NEEDS, SIGNS OR SYMPTOMS TO CONTACT THE AGENCY OR PHYSICIAN. ] Future Scheduled Test PHYSICAL T HERAPIST TO EVALUATE AND TREAT [code = PHYSICAL THERAPIST TO EVALUATE AND TREAT] Future Scheduled Test OCCUPATION AL THERAPIST TO EVALUATE AND TREAT [code = OCCUPATIONAL THERAPIST TO EVALUATE AND TREAT] Future Scheduled Test SPEECH NICO GUAGE PATHOLOGIST TO EVALUATE AND TREAT. [code = SPEECH LANGUAGE PATHOLOGIST TO EVALUATE AND TREAT.] Goal Patient Goal - S OC 04/03/25: TO GET MY STRENGTH BACK, TO GAIN 5-10 LBS/MONTH, TO REMAIN FREE FROM FALLS AND HOSPITALIZATIONS Goal Provider Goal - PATIENT/CAREGIVER WILL INDEPENDENTLY DEMONSTRATE THE ABILITY TO MANAGE CARE OF SITE, EQUIPMENT, AND FLUSHING. PATIENT/CAREGIVER WILL INDEPENDENTLY VERBALIZE SYMPTOMS TO REPORT TO THE PHYSICIAN BY END OF HOME HEALTH SERVICES. Goal Provider Goal - A PLAN OF CARE WILL BE ESTABLISHED THAT MEETS ALL PATIENT'S CORRECTION NEEDS AND COUNTER SIGNED BY PHYSICIAN. Goal Provider Goal - PATIENT WILL BE FREE OF FALLS AND HOSPITALIZATIONS THROUGHOUT EPISODE OF CARE. PATIENT/CAREGIVER WILL UNDERSTAND AND ADHERE TO ORDERED DIET. PATIENT/CAREGIVER WILL INDEPENDENTLY MANAGE MEDICATIONS, UNDERSTAND ANY CHANGES, SIDE EFFECTS TO REPORT BY EOE. PATIENT WILL BE FREE OF INFECTION AND UNDERSTAND MEASURES OF PREVENTION. PATIENT/CAREGIVER WILL COLLABORATE WITH SKILLED NURSE TO DEVELOP POC AT SOC AND ON AN ONGOING BASIS UPDATES ARE NEEDED. UNDERSTAND PROGRESS MADE/DISCHARGE PLANNING. ADDITIONAL ORDERS WILL BE RECEIVED FROM ALTERNATE PHYSICIANS IN A TIMELY MANNER. Goal Provider Goal - PATIENT WILL RECEIVE HOME HEALTH SERVICES ON ORDERED START DATE. Goal Provider Goal - PATIENT/CAREGIVER WILL VERBALIZE UNDERSTANDING OF THE CONTRIBUTING FACTORS AND SYMPTOMS OF DEPRESSION. Goal Provider Goal - PATIENT/CAREGIVER WILL VERBALIZE UNDERSTANDING OF THE CONTRIBUTING FACTORS AND SYMPTOMS OF ANXIETY. Goal Provider Goal - PATIENT/CAREGIVER WILL DEMONSTRATE THE USE OF SYMPTOM LOG AND HOW TO IDENTIFY WHEN TO CALL THE TREATING PROVIDER. Goal Provider Goal - PATIENT/CAREGIVER WILL DEMONSTRATE USE OF A SYMPTOM LOG, UNDERSTAND THE SYMPTOMS, AND KNOW WHEN TO CALL THE ORDERING PROVIDER TO ADJUST MEDICAL TREATMENTS TO PROMOTE COMFORT BY THE END OF HOME HEALTH SERVICES Goal Provider Goal - PATIENT/CAREGIVER WILL DEMONSTRATE USE OF A LOG TO TRACK BLOOD PRESSURE READINGS AND VERBALIZE UNDERSTANDING OF WHEN TO CALL THE PHYSICIAN BY THE END OF HOME HEALTH SERVICES. Goal Provider Goal - PATIENT/CAREGIVER WILL VERBALIZE UNDERSTANDING ON HOW TO CLEAN OXYGEN SUPPLIES, OXYGEN SAFETY, AND KNOW WHEN TO CONTACT THE PHYSICIAN BY THE END OF HOME HEALTH SERVICES. Goal Provider Goal - Goal Provider Goal - Goal Provider Goal - Progress Notes Progress Notes <paragraph>[Visit Date: 2024 by ROBIN HERNANDEZ REGISTERED NURSE]:</paragraph><paragraph>PATIENT BEING SEEN FOR MALNUTRITION. UPON ARRIVAL, GREETED BY PATIENT'S SPOUSE AT THE DOOR. PATIENT SITTING IN RECLINER WITH FEET ELEVATED. APPEAR IN NO ACUTE DISTRESS. VSS EXCEPT LOW BP. REPORTED TO MD WITH NO NEW ORDERS. PATIENT STATES HE CHECKS IT EVERY DAY AND IT HAS BEEN RUNNING LOW. REPORTS THAT HE DOES NOT FEEL DIZZY. LUNG SOUNDS CLEAR. REPORTS OCCAS COUGH WITH CLEAR THIN SPUTUM. DENIES PAIN/CHEST PAIN/SOB WITH REST/FALLS. SKIN CHECK PERFORMED WITH NO FINDINGS. SPOUSE PERFORMS TUBE FEEDINGS INDEPENDENTLY FOR PATIENT WITH NO ISSUES. DENIES MEDICATION CHANGES. ACCURATE LIST IN HOME. EDUCATION PROVIDED ON TUBE FEEDINGS, MEDICATIONS, S/S TO REPORT. PATIENT VERBALIZED UNDERSTANDING. DENIES ANY OTHER QUESTIONS/CONCERNS. UPON NURSE DEPARTURE, PATIENT STABLE.</paragraph> Encounters Start Date/Time End Date/Time Encounter Type Admission Type Attending [facility] Care Department Encounter ID Discharge Date Discharge Status Discharge Condition Discharge Reason Percent Goals Met 2025-04-03 00:00:00 2025-06-01 00:00:00 Outpatient NEW ADMISSION DIMA FRANCIS [facility] [id number] 38.46
--- OUTSIDE RECORDS SUMMARY | 2025-04-12 12:27 | XMS_ITS | Clinical Summary ---
Author Organization [facility] cole [facility] Address [address] [place] [address] Care Team Providers Care Business Leader Name Role Phone Unavailable Primary Care Provider Unavailabl e Allergies No known active allergies Medications LORazepam (ATIVAN) 2 mg tablet 1 Active phenelzine (NardiL) 15 mg tablet Take 15 mg by mouth 3 times daily. Active Trelegy Ellipta 100-62.5-25 mcg Disk with Device Take 1 Puff by inhalation daily. 5 Active naloxone (NARCAN) 4 mg/spray Gardner, Non-Aerosol EMERGENCY USE ONLY: Administer 1 spray (4 mg) in one nostril one time. May repeat in alternating nostrils every 2-3 min until responsive or EMS arrives. 2 Each 3 5 Active lidocaine-priloc kareem (EMLA) 2.5-2.5 % CreamIndications [...] 2 times daily. 60 Tablet 5 Active HYDROcodone-acet aminophen (NORCO) 10-325 mg TabletIndication s:Malignant neoplasm of upper lobe of right lung (CMS/HCC) Take 1 Tablet by mouth every 4 hours as needed for Pain, Moderate. Max Daily Amount: 6 Tablets 120 Tablet 5 Active sucralfate (Carafate) 100 mg/mL suspension Take 10 mL (1 Gram) by mouth every 6 hours. 414 mL Active albuterol (PROVENTIL,MITCH GILBERTO) 0.63 mg/3 mL Solution for Nebulization Take 3 mL (0.63 mg) by inhalation every 6 hours as needed for Shortness of Breath. 90 mL 5 Active Active Problems No known active problems Encounters Date Type Department Care Team Description 04/08/2025 11:00 AM CDT Office Visit [facility] Oncology and Hematology - Taco Dionne Lem[address] Nba Ponce MD Malignant neoplasm of upper lobe of right lung (CMS/HCC) (Primary Dx); Osteoporosis, unspecified osteoporosis type, unspecified pathological fracture presence 04/05/2025 Orders Only [facility] Oncology and Hematology - [place]aco Dionne [address] [place] [id number] Nba Ponce MD Malignant neoplasm of upper lobe of right lung (CMS/HCC) 03/24/2025 Orders Only [facility] Oncology and Hematology - Taco Juan J Lema [address] [place] [id number] Nba Ponce MD 03/22/2025 Orders Only [facility] Oncology and Hematology - Taco James Dionne Lema [address] [place] [id number] Nba Ponce MD Malignant neoplasm of upper lobe of right lung (CMS/HCC) 03/18/2025 Orders Only [facility] Oncology and Hematology - Taco [address] [place] [id number] Nba Ponce MD 03/17/2025 9:45 AM CDT Office Visit [facility] Oncology and Hematology - Taco Jua nJ Lema [address] [place] [phone] Nba Ponce MD Malignant neoplasm of upper lobe of right lung (CMS/HCC) (Primary Dx) 03/16/2025 Orders Only [facility] Oncology and Hematology - Taco [address] Nba Ponce MD 03/08/2025 Orders Only [facility] Oncology and Hematology - T[place] [address] [place] [id number] Nba Ponce MD Malignant neoplasm of upper lobe of right lung (CMS/HCC) 03/03/2025 Orders Only [facility] Oncology and Hematology - T[place] [address] Nba Ponce MD 03/01/2025 Refill [facility] Oncology and Hematology - Taco [address] [place] [id number] Nba Ponce MD Malignant neoplasm of upper lobe of right lung (CMS/HCC) 02/26/2025 Orders Only [facility] Oncology and Hematology - Taco [address] [place] [id number] Nba Ponce MD 02/24/2025 Orders Only [facility] Oncology and Hematology - Taco 222Judie Lema [address] [place] [id number] Nba Ponce MD 02/23/2025 9:00 AM CDT Office Visit [facility] Oncology and Hematology - T[address] Nba Ponce MD Malignant neoplasm of upper lobe of right lung (CMS/HCC) (Primary Dx) 02/22/2025 Orders Only [facility] Oncology and Hematology - Taco [address]Judie [address] [place] [phone] Nba Ponce MD Malignant neoplasm of upper lobe of right lung (CMS/HCC) 02/17/2025 Abstract [facility] Oncology and Hematology - [place] [place] [id number] Nba Ponce MD 02/17/2025 Refill [facility] [address] [place] [phone] Nba Ponce MD Malignant neoplasm of upper lobe of right lung (CMS/HCC) 02/17/2025 Telephone [facility] Oncology and Hematology - Lissie [address] [place] [phone] Nba Ponce MD Hold Chemotherapy/Lab Results 02/11/2025 External Device Data 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, Abstract 02/10/2025 External Device Data 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, Abstract 02/10/2025 Orders Only [facility] [address] [place] [phone] Nba Ponce MD Malignant neoplasm of upper lobe of right lung (CMS/HCC) (Primary Dx) 02/09/2025 External Device Data 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, Abstract 02/08/2025 Refill [facility] [address] [place] [phone] Nba Ponce MD Malignant neoplasm of upper lobe of right lung (CMS/HCC) 02/02/2025 Refill [facility] [address] [place] [phone] Nba Ponce MD Malignant neoplasm of upper lobe of right lung (CMS/HCC) (Primary Dx) 01/26/2025 10:00 AM CDT Office Visit 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 Gender Identity Not on file Sexual Orientation Not on file Last Filed Vital Signs Vital Sign Reading Time Taken Comments Blood Pressure 77/52 04/08/2025 10:49 AM CDT Pulse 100 04/08/2025 10:46 AM CDT Temperature 36.8 C (98.2 F) 04/08/2025 10:46 AM CDT Respiratory Rate 17 04/08/2025 10:46 AM CDT Oxygen Saturation 90% 04/08/2025 10:46 AM CDT Inhaled Oxygen Concentration - - Weight 58 kg (127 lb 12.8 oz) 04/08/2025 10:46 A M CDT Height 182.9 cm (6') 01/13/2025 10:51 AM CDT Body Mass Index 17.33 01/13/2025 10:51 AM CDT Plan of Treatment Upcoming Encounters Date Type Department Care Team (Late st Contact Info) Description 05/10/2025 2:00 PM CDT Office Visit [facility] Oncology and Hematology - T[place] [address] [facility] [place] [place] [address] Nba Ponce MD [address] [facility] [address] [place] [address] Health Maintenance Due Date Last Done Comments DTAP/TDAP/TD VACCINES (1 - Tdap) 1969 PNEUMOCOCCAL VACCINE 50+ YEA RS (1 of 2 - PCV) 1967 ZOSTER VACCINE (1 of 2) 1998 RSV VACCINE (60+ or ) (1 - 1-dose 75+ series) 2023 COVID-19 Vaccine ( - season) 05/24/202411/2020, 11/27/2020 INFLUENZA VACCINE (#1) [...] ORDERABLES Final Resu lt [facility] [address], [address] [place] [address], [facility] [address], [address] [place] [address] * [facility] (01/26/2025 12:00 AM CDT) Reason for Study To identify mutations relevant to patient's cancer. 02/04/2025 4:34 PM CDT [facility] Genetic Diseases Assessed Cancer 02/04/2025 4:34 PM CDT [facility] Description of Ranges of DNA Sequences Examined 523 gene liquid biopsy 02/04/2025 4:34 PM CDT [facility] Overall Interpretation positive 02/04/2025 4:34 PM CDT [facility] [email or web address] 02/04/2025 4:34 PM CDT [facility] Comment:[facility] link Low Coverage Regions CARM1, CUL4A, DNMT1, FANCC, FGFR3, GNA11, IMPDH1, KMT2A, MAPK1, MAPK3, MSH3, NFE2L2, NOTCH2, PHLPP2, PIK3R2, PTPRT, RAD51C, RECQL4, RHEB, RHOA, RXRA, SDHAF2, TERT, TGFBR1, TP53, TP63, XBP1, ZNRF3 02/04/2025 4:34 PM CDT [facility] Therapy Count 1 02/04/2025 4:34 PM CDT [facility]: Potential Therapy 1 Gene: 90175^CHEK2^HGNC Variant: p.R519* Match Type: snvIndel Match Type Description: CHEK2 p.R519* Agent: Olaparib Drug Class: PARP Inhibitor Tissue: Prostate Cancer Association: Response Evidence Status: Consensus Evidence ID: NCCN KDB Variant: [id number] Label: FDA Off Label FDA Approved?: Yes On label?: No 02/04/2025 4:34 PM CDT [facility] Trial Count 3 02/04/2025 4:34 PM CDT [facility]: Clinical Trial Match 1 Clinical Trial NCT ID: [id number] Clinical Trial Title: A Study of PARG Inhibitor [id number] in Participants With Advanced Solid Tumors Clinical Trial URL: [email or web address] Clinical Phase: Phase 1 Clinical Trial Matches: CHEK2 p.R519* mutation Clinical Trial Distance and Location: [address] [place], [place] 02/04/2025 4:34 PM CDT [facility]: Clinical Trial Match 2 Clinical Trial NCT ID: [id number] Clinical Trial Title: TAPUR: Testing the Use of Food and Drug Administration (FDA) Approved Drugs That Target a Specific Abnormality in a Tumor Gene in People With Advanced Stage Cancer Clinical Trial URL: [email or web address] Clinical Phase: Phase 2 Clinical Trial Matches: CHEK2 p.R519* mutation Clinical Trial Distance and Location: [address] [place], [place] 02/04/2025 4:34 PM CDT [facility]: Clinical Trial Match 3 Clinical Trial NCT ID: [id number] Clinical Trial Title: Study Of ATRN-119 In Patients With Advanced Solid Tumors Clinical Trial URL: [email or web address] Clinical Phase: Phase 1/Phase 2 Clinical Trial Matches: CHEK2 p.R519* mutation, TP53 p.R342* mutation Clinical Trial Distance and Location: [address] [place], [place] 02/04/2025 4:34 PM CDT [facility] Tumor Mutational [place] 5.0 m/MB 02/04/2025 4:34 PM CDT [facility] Microsatellite Instability Note MSI-High not detected 02/04/2025 4:34 PM CDT [facility] Blood specimen (specimen) 01/26/2025 01/28/2025 10:55 PM CDT Narrative This result has genomic variants that were not included in this document. us Nba Ponce MD MOLECULAR ORDERABLES Final Resu lt [facility] [address], [address] [place] [address], [facility] [address], [address] [place] [address] from Last 3 Months Insurance GENERIC MEDICARE MANAGED CARE
== END 2025-04-12 12:24 | disposition home or self-care (01) ==
LOC: ANHIMG 12:24
PROVIDERS: PCP Family Medicine; Visit Provider Internal Medicine Hematology & Oncology
DX: M81.0 Age-related osteoporosis without current pathological fracture (principal); M85.851 Other specified disorders of bone density and structure, right thigh
CPT/HCPCS: 77080

== ENCOUNTER 2025-04-29 21:34 | Inpatient (IN) | payer OTHER, SELFPAY ==
--- NOTE | ~2025-04-29 | CT_ITS ---
EXAMINATION: CTA chest PE protocol DATE: 04/30/2025 0:21 CDT INDICATION: Shortness of breath. Patient with a recent diagnosis of lung cancer currently undergoing radiation treatment, on 2 L of oxygen at night and 3 L of oxygen at home with exertion. Prior history of head and neck cancer post radiation more than 20 years earlier. TECHNIQUE: Computed tomographic angiography (CTA) of the chest was performed with 100 mL Omnipaque-35 0 intravenous contrast. The dose-length product was 362.45 mGy-cm. Maximum intensity projection 3D-re constructions of the aorta and other arteries were constructed by the technologist on a separate work station. COMPARISON: 03/14/2025 FINDINGS/OBSERVATIONS: PULMONARY ARTERIES: No filling defect is identified within the main or proximal pulmonary artery. The main pulmonary artery is markedly enlarged, unchanged. THORACIC AORTA: No aneurysmal dilatation or dissection is present. The great vessels are intact LUNGS: Left apical scarring. Dense cavitary consolidation of the medial segment of the right upper lobe, likely post radiation yanet nge. Interval development patchy groundglass opacification of the bilateral lung bases. Panlobular emphysematous change redemonstrated. Tree-in-bud opacification of the right upper lobe, an interval change from prior. MEDIASTINUM: No morphologically suspicious or pathologically enlarged lymph nodes are identified with in the mediastinum or bilateral axilla. BONES OF THE CHEST: Diffuse bony demineralization. Redemonstration of Ovalle rods. Prior anterior wedge compression of T1 and T2 (to a lesser degree) and T12. No lytic or blastic lesions appreciated. HEART: The heart is significantly enlarged, unchanged, without pericardial effusion. Upper abdomen: Interval increase in size of an irregular focus of decreased attenuation within segment 7 of the live r (axial series, image 268). This area measures 15.5 x 17.3 mm and has increased from 9 x 13.5 mm on the previous study dated 03/14/2025. Redemonstration of a flash filling hemangioma within segment 2/3 of the liver. Multiple stones within the gallbladder. Interval placement of a percutaneous gastrostomy since prior study. IMPRESSION: No pulmonary embolus. No thoracic aortic dissection. Post radiation change within the right upper lobe with increase in size of the cavitary consolidation . Left apical scarring. Interval development of patchy groundglass opacification of the bilateral lung bases. Severe panlobular emphysematous disease redemonstrated. Tree-in-bud opacification of right upper lobe, an interval change from prior. Interval increase in size of an irregular focus of decreased attenuation within segment 7 of the live r when compared with previous study dated 03/14/2025 for which a metastatic lesion is suspected. If needed, this area is accessible via percutaneous biopsy, if not already performed. Reviewed, dictated and finalized at location A. IMPRESSION: No pulmonary embolus. No thoracic aortic dissection. Post radiation change within the right upper lobe with increase in size of the cavitary consolidation. Left apical scarring. Interval development of patchy groundglass opacification of the bilateral lung bases. Severe panlobular emphysematous disease redemonstrated. Tree-in-bud opacification of right upper lobe, an interval change from prior. Interval increase in size of an irregular focus of decreased attenuation within segment 7 of the liver when compared with previous study dated 03/14/2025 for w hich a metastatic lesion is suspected. If needed, this area is accessible via percutaneous biopsy, if not already perf ormed.
--- NOTE | ~2025-04-29 | CT_ITS ---
History: Shortness of breath PROCEDURE: CT cervical spine without intravenous contrast. Examination is significantly limited secon robert to patient positioning within the gantry COMPARISON: None. Reference is made to a plain film evaluation of the cervical spine dated 01/31/2025 TECHNIQUE: Multiple contiguous axial images of the cervical spine were performed without the administration of i ntravenous contrast. DLP: 221 mGy-cm FINDINGS: Severe degenerative disease is identified within the cervical spine with osteophyte formation, disc s pace narrowing, endplate changes and vacuum phenomena. Chronic compression of the T2 and T3 vertebral bodies is again noted, unchanged from prior. No acute significantly displaced fractures are present. Redemonstration of posttreatment change within the medial margin of the right upper lobe, with cavita ry development, increased from prior examination. Redemonstration of left apical scarring The airway is patent. Impression: Significant degenerative disease, without acute significantly displaced fractures, as detailed above Reviewed, dictated and finalized at location A. Impression: Significant degenerative disease, without acute significantly displaced fractur es, as detailed above
--- NOTE | ~2025-04-29 | XR_ITS ---
XR chest 1V portable 05/03/2025 12:58 Indication: Pneumonia. Lung cancer. Procedure: AP portable chest Comparison: Comparison to multiple prior studies sequentially, with oldest reviewed study dated 02/16. Findings: Progression of diffuse bilateral airspace disease. Possible small left effusion. No pneumot horax. Portacatheter tip in the SVC. Impression: 1: Progression of diffuse bilateral airspace disease which may represent edema and/or pneumonia. Reviewed, dictated and finalized at location A. Impression: 1: Progression of diffuse bilateral airspace disease which may represent edema and/or pneumonia.
--- NOTE | ~2025-04-29 | XR_ITS ---
CHEST RADIOGRAPH CLINICAL HISTORY: SOB . COMPARISON: 03/14/2025 TECHNIQUE: Single portable view of the chest. Limited examination as the patient's mandible secures the bilateral lung apices. FINDINGS Right internal jugular central venous power catheter identified with its tip projecting over the righ t atrium. The remainder of the cardiomediastinal silhouette is otherwise unremarkable. Coarse interstitial lung markings detected bilaterally. Blunting of the left costophrenic sulcus suggesting a small left-sided pleural effusion with adjacent compressive atelectasis. Post radiation change within the visualized portion of the superior mediastinum, to the right of midl ine. The remainder of the lungs are clear. Ovalle rods within the lower thoracic spine. IMPRESSION: Chronic interstitial change with a small left-sided pleural effusion and adjacent compressive atelect asis. Reviewed, dictated and finalized at location A. IMPRESSION: Chronic interstitial change with a small left-sided pleural effusion and adjace nt compressive atelectasis.
--- NOTE | ~2025-04-29 | CT_ITS ---
History: Shortness of breath PROCEDURE: CT head without contrast. Examination is markedly limited secondary to a significant amoun t of motion artifact, despite multiple repeated attempts by the technologist. COMPARISON: 02/16/2025 TECHNIQUE: Axial imaging of the head performed from the skull base to the vertex without IV contrast. Sagittal a nd coronal reformations obtained. DLP: 1513 mGy-cm FINDINGS: The ventricles are enlarged. The dilatation of the ventricles is proportional to the degree of sulcal prominence, not uncommon in the senescent brain. Decreased attenuation is identified within the periventricular white matter, likely secondary to micr ovascular ischemic disease, in a patient of this age. There is no large mass, significant mass effect or midline shift. There is no significant abnormal extra-axial fluid collection or large intracranial hemorrhage. Visualized paranasal sinuses are clear. The mastoid air cells are well aerated. No large acute displaced fractures within the overlying cranium. Impression: Examination is markedly limited by a significant amount of motion artifact. No large acute intracranial hemorrhage or suspicious significant mass effect. Reviewed, dictated and finalized at location A. Impression: Examination is markedly limited by a significant amount of motion artifact. No large acute intracranial hemorrhage or suspicious significant mass effect.
[2025-04-29 21:35] VITALS: BP 102/66; PULSE 105; RESP 21; TEMP 36.8; O2SAT 95
--- NOTE | 2025-04-29 21:47 | ECG_ITS ---
Test Date: 2025-04-29 21:45:53 Measurements Intervals [place] Rate: 103 P: 46 [place]: 146 QRS: 25 QRSD: 98 T: 50 QT: 324 QTc: 425 Interpretive Statements SINUS TACHYCARDIA INCOMPLETE RIGHT BUNDLE BRANCH BLOCK MINIMAL Q WAVES- ANTEROLATERAL LEADS BASELINE ARTIFACT- I, II, III, AVR, AVL, AVF, V1-V6 BORDERLINE ECG Compared to ECG 03/14/2025 09:26:09 HEART RATE HAS INCREASED Electronically Signed On 04-30-2025 06:15:12 CDT by Walt Millard D.O.
[2025-04-29 21:49] VITALS: PULSE 104; O2SAT 100
--- OUTSIDE RECORDS SUMMARY | 2025-04-29 21:52 | XMS_ITS | Clinical Summary ---
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
--- OUTSIDE RECORDS SUMMARY | 2025-04-29 21:52 | XMS_ITS | Clinical Summary ---
Author Organization Unknown Care Team Providers Care Calf Skinner Name Role Phone TOMA SAUCEDA, BOY Unavailable Unava ilable ALAYNA PHYSICAL THERAPIST, LISSET Unavailable Unavailable FLORA SPEECH THERAPIST, MS, CCC/DIGESTER CAPPER, RADHA Un available Unavailable GEMINI MICROWAVE RADIO TECHNICIAN, MACIEL Unagabriela ailable Unavailable BEAVERS JOURNEY COUNSELOR, LYNN Landaverdea ble Unavailable PENNY REGISTERED NURSE DOMESTIC HOUSEKEEPER, DIMA Georgina vailable Unavailable COLÓN OCCUPATIONAL THERAPIST, LISA Unavailable Unavailable Payers Payer Name Policy Type Policy Number Effective Date Expira tion Date [employer] MEDICARE - EPISODIC Problems Condition Name Condition Details Condition Category Status Onset Date Resolution Date Last Treatment Date Treating Clinician Comments UNSPECIFIED PROTEIN-KRANTHI JEFFREY MALNUTRITION Active 7-05 00:00: 00 DYSPHAGIA, OROPHARYNGEA L PHASE Active - 00:00: 00 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 Active 09-23 00:00: 00 GASTRO-ESOPH AGEAL REFLUX DISEASE WITHOUT ESOPHAGITIS Active 09-23 00:00: 00 OTHER SPECIFIED CHRONIC OBSTRUCTIVE PULMONARY DISEASE Active - 00:00: 00 DEPRESSION, UNSPECIFIED Active 09-23 00:00: 00 ANXIETY DISORDER, UNSPECIFIED Active 09-23 00:00: 00 HYPERLIPIDEM IA, UNSPECIFIED Active 09-23 00:00: 00 UNSPECIFIED OSTEOARTHRIT IS, UNSPECIFIED SITE Active 09-23 00:00: 00 PERSONAL HISTORY OF MALIGNANT MELANOMA OF SKIN Active 09-23 00:00: 00 PERSONAL HISTORY OF MALIGNANT NEOPLASM OF PROSTATE Active - 00:00: 00 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 - 00:00: 00 PERSONAL HISTORY OF (HEALED) TRAUMATIC FRACTURE Active 09-23 00:00: 00 ACQUIRED ABSENCE OF OTHER SPECIFIED PARTS OF DIGESTIVE TRACT Active 09-23 00:00: 00 GASTROSTOMY STATUS Active 09-23 00:00: 00 PERSONAL HISTORY OF NICOTINE DEPENDENCE Active 09-23 00:00: 00 ACQUIRED ABSENCE OF OTHER PART OF HEAD AND NECK Active 09-23 00:00: 00 DEPENDENCE ON SUPPLEMENTAL OXYGEN Active 09-23 00:00: 00 WAX BLENDER (CURRENT) USE OF INHALED STEROIDS Active 09-23 [...] 10 mg alia 03-31 00:00: 00 Yes [id number] THRUSH 1 alia 3 TIMES DAILY 1 alia 3 TIMES DAILY (route: mucous membrane) Med Classific ation: Mouth-Thr oat-Denta l - Preparati ons ipratropium 0.5 mg-albutero l 3 mg (2.5 mg base)/3 mL nebulizatio n soln 03-31 00:00: 00 Yes [id number] WHEEZING/SH ORTNES OF BREATH 3 mL EVERY 6 HOURS 3 mL EVERY 6 HOURS (route: inhalation ) Med Classific ation: Respirato ry Therapy Agents Jevity 1.5 Gordo 0.06 gram-1.5 kcal/mL oral liquid 03-30 00:00: 00 Yes [id number] NUTRITION 300 mL 4 TIMES DAILY 300 mL 4 TIMES DAILY (route: oral) Alternate Route: G-TUBE. Med Classific ation: Electroly te Balance-N utritiona l Products lorazepam 2 mg tablet 03-31 00:00: 00 Yes [id number] ANXIETY 1 tablet TWICE DAILY 1 tablet TWICE DAILY (route: oral) Alternate Route: G-TUBE. Med Classific ation: Central Nervous System Agents oxygen gas for inhalation 03-31 00:00: 00 Yes [id number] HYPOXIA 2-3 Liter O2 - CONTINUOUS 2-3 Liter O2 - CONTINUOUS (route: inhalation ) Alternate Route: O2 - NASAL CANNULA. Med Classific ation: Medical Supplies and Durable Medical Equipment (DME) phenelzine 15 mg tablet 03-31 00:00: 00 Yes [id number] ANXIETY 1 tablet 3 TIMES DAILY 1 tablet 3 TIMES DAILY (route: oral) Alternate Route: G-TUBE. Med Classific ation: Central Nervous System Agents sucralfate 100 mg/mL oral suspension 03-31 00:00: 00 Yes [id number] PREVENT ULCERS 10 mL EVERY 4 HOURS 10 mL EVERY 4 HOURS (route: oral) Alternate Route: G-TUBE. Med Classific ation: Gastroint estinal Therapy Agents Trelegy Ellipta 100 mcg-62.5 mcg-25 mcg powder for inhalation 03-31 00:00: 00 Yes [id number] COPD 1 inhalat ion ONCE DAILY 1 inhalation ONCE DAILY (route: inhalation ) Med Classific ation: Respirato ry Therapy Agents midodrine 2.5 mg tablet 04-09 00:00: 00 04-22 23:59 :00 No [id number] HYPOTENSION 1 tablet 3 TIMES DAILY 1 tablet 3 TIMES DAILY (route: oral) Alternate Route: G-TUBE. Med Classific ation: Cardiovas cular Therapy Agents midodrine 5 mg tablet 04-22 00:00: 00 Yes [id number] HYPOTENSION 1 tablet 3 TIMES DAILY 1 tablet 3 TIMES DAILY (route: oral) Med Classific ation: Cardiovas cular Therapy Agents Immunizations Ordered Immunization Name Filled Immunization Name Date Status Comments Refusal Reason ASKED PATIENT BUT PATIENT STATES NO VACCINE RECEIVED., N/A 2025-04-03 00:00:00 Vital Signs Vital Name Observation Time Observation Value Commen ts Temperature 2025-04-28 12:04:00.000 97.9 [degF] Temperature 2025-04-27 14:26:00.000 97.8 [degF] Temperature 2025-04-22 10:25:00.000 97.9 [degF] Temperature 2025-04-22 08:06:00.000 97.9 [degF] Temperature 2025-04-21 09:07:00.000 98 [degF] Temperature 2025-04-20 12:55:00.000 98.9 [degF] Temperature 2025-04-16 10:50:00.000 98.9 [degF] Temperature 2025-04-16 10:24:00.000 98.9 [degF] Temperature 2025-04-15 09:02:00.000 97.2 [degF] Temperature 2025-04-15 08:55:00.000 97.2 [degF] Temperature 2025-04-06 09:21:00.000 97.4 [degF] Temperature 2025-04-06 08:47:00.000 97.6 [degF] Temperature 2025-04-03 09:47:00.000 97.9 [degF] BMI (%) 2025-04-03 09:47:00.000 17 kg/m2 Height 2025-04-03 09:47:00.000 72 [in_us] Pulse 2025-04-28 12:04:00.000 68 /min Pulse 2025-04-27 14:26:00.000 74 /min Pulse 2025-04-22 10:25:00.000 84 /min Pulse 2025-04-22 08:06:00.000 83 /min Pulse 2025-04-21 09:07:00.000 93 /min Pulse 2025-04-20 12:55:00.000 94 /min Pulse 2025-04-16 10:50:00.000 88 /min Pulse 2025-04-16 10:24:00.000 88 /min Pulse 2025-04-15 09:09:00.000 98 /min Pulse 2025-04-15 08:55:00.000 105 /min Pulse 2025-04-06 09:21:00.000 81 /min Pulse 2025-04-06 08:47:00.000 81 /min Pulse 2025-04-03 09:47:00.000 83 /min O2 Saturation (%) 2025-04-28 12:04:00.000 94 % O2 Saturation (%) 2025-04-27 14:26:00.000 95 % O2 Saturation (%) 2025-04-22 10:25:00.000 95 % O2 Saturation (%) 2025-04-22 08:06:00.000 93 % O2 Saturation (%) 2025-04-21 09:07:00.000 95 % O2 Saturation (%) 2025-04-20 12:55:00.000 95 % O2 Saturation (%) 2025-04-16 10:50:00.000 98 % O2 Saturation (%) 2025-04-16 10:24:00.000 98 % O2 Saturation (%) 2025-04-15 09:09:00.000 94 % O2 Saturation (%) 2025-04-15 08:55:00.000 90 % O2 Saturation (%) 2025-04-06 09:21:00.000 96 % O2 Saturation (%) 2025-04-06 08:47:00.000 96 % O2 Saturation (%) 2025-04-03 09:47:00.000 93 % Respirations 2025-04-28 12:04:00.000 19 /min Respirations 2025-04-27 14:26:00.000 20 /min Respirations 2025-04-22 10:25:00.000 18 /min Respirations 2025-04-22 08:06:00.000 18 /min Respirations 2025-04-21 09:07:00.000 18 /min Respirations 2025-04-20 12:55:00.000 20 /min Respirations 2025-04-16 10:50:00.000 16 /min Respirations 2025-04-16 10:35:00.000 16 /min Respirations 2025-04-15 09:02:00.000 15 /min Respirations 2025-04-15 08:55:00.000 15 /min Respirations 2025-04-06 09:21:00.000 18 /min Respirations 2025-04-06 08:47:00.000 18 /min Respirations 2025-04-03 09:47:00.000 18 /min Weight (lbs) 2025-04-27 14:26:00.000 125.7 [lb_av] Weight (lbs) 2025-04-22 08:06:00.000 120 [lb_av] Weight (lbs) 2025-04-20 12:55:00.000 120 [lb_av] Weight (lbs) 2025-04-15 09:16:00.000 127.5 [lb_av] Weight (lbs) 2025-04-03 09:47:00.000 129 [lb_av] Systolic Blood Pressure 2025-04-28 12:04:00.000 100 mm [Hg] Systolic Blood Pressure 2025-04-27 14:26:00.000 102 mm [Hg] Systolic Blood Pressure 2025-04-22 10:25:00.000 98 mm[ Hg] Systolic Blood Pressure 2025-04-22 08:06:00.000 93 mm[ Hg] Systolic Blood Pressure 2025-04-21 09:07:00.000 96 mm[ Hg] Systolic Blood Pressure 2025-04-20 12:55:00.000 98 mm[ Hg] Systolic Blood Pressure 2025-04-16 10:50:00.000 104 mm [Hg] Systolic Blood Pressure 2025-04-16 10:24:00.000 104 mm [Hg] Systolic Blood Pressure 2025-04-15 09:34:00.000 82 mm[ Hg] Systolic Blood Pressure 2025-04-15 08:55:00.000 100 mm [Hg] Systolic Blood Pressure 2025-04-06 09:21:00.000 90 mm[ Hg] Systolic Blood Pressure 2025-04-06 08:47:00.000 84 mm[ Hg] Systolic Blood Pressure 2025-04-03 09:47:00.000 88 mm[ Hg] Diastolic Blood Pressure 2025-04-28 12:04:00.000 62 mm [Hg] Diastolic Blood Pressure 2025-04-27 14:26:00.000 62 mm [Hg] Diastolic Blood Pressure 2025-04-22 10:25:00.000 58 mm [Hg] Diastolic Blood Pressure 2025-04-22 08:06:00.000 58 mm [Hg] Diastolic Blood Pressure 2025-04-21 09:07:00.000 54 mm [Hg] Diastolic Blood Pressure 2025-04-20 12:55:00.000 58 mm [Hg] Diastolic Blood Pressure 2025-04-16 10:50:00.000 58 mm [Hg] Diastolic Blood Pressure 2025-04-16 10:24:00.000 58 mm [Hg] Diastolic Blood Pressure 2025-04-15 09:34:00.000 48 mm [Hg] Diastolic Blood Pressure 2025-04-15 08:55:00.000 60 mm [Hg] Diastolic Blood Pressure 2025-04-06 09:21:00.000 54 mm [Hg] Diastolic Blood Pressure 2025-04-06 08:47:00.000 50 mm [Hg] Diastolic Blood Pressure 2025-04-03 09:47:00.000 [...] OR SITE COMPLICATIONS.] Future Scheduled Test [facility] TIFYING PHYSICIAN, ASSOCIATED PHYSICIAN, NPP OR [...] WILL BE ESTABLISHED THAT MEETS ALL PATIENT'S [facility] NEEDS AND COUNTER SIGNED BY PHYSICIAN. Goal [...] Notes Progress Notes <paragraph>[Visit Date: 2024 by ELKE ESPINOSA LICENSED PRACTICAL NURSE]:</paragraph><paragraph>PTNT BEING SEEN BY SN FOR MALNUTRITION. SN GREETED AT DOOR BY PTNT . ENTERED HOME TO FIND PTNT RESTING IN RECLINER WITH LEGS ELEVATED. PTNT CG PRESENT DURING VISIT. NO FALLS OR MED CHANGES. PATIENT INDEPENDANT WITH FEEDING TUBE AND CARE. CO OF REFLUX AFTER BOLUS FEEDINGS, INSTRUCTED TO BREAK HIS BOLUS FEEDS BY 1/2 OVER 2 HOURS ALONG WITH THE FLUSHES. DO NOT LAY DOWN 45 AFTER FEEDINGS. PATIENT ON ROOM AIR AFTER GOING TO THE BATHROOM (SP02 78%). PATIENT APPLIED OXYGEN AT 2.5 LITERS (SPO2 88-90%) SN INCREASED TO 3L(SPO2 92-94%) PTNT ALERT AND ORIENTED ACTIVELY PARTICIPATING IN CARE. VOICE IS VERY SOFT. COMPREHENSIVE ASSESSMENT COMPLETED. VSS, HR REG, LUNGS CTA, BSX4, ABD SOFT AND NONTENDER, LBM 04/27/25, NO EDEMA, +2 PEDAL PULSES. SKIN CHECK PERFORMED. PTNT SHOWS NO BREAKDOWN IN SKIN INTEGRITY. PTNT DENIES CHEST PAIN, FEVER, CHILLS, SOB, NEW COUGH, OR DYSURIA. PTNT WEIGHT 12O LBS. LUQ PEG TUBE IN PLACE. LUNGS HAVE DIMINISHED SOUNDS THROUGHOUT WITH EXPIRATORY RHONCHI IN RIGHT LUNG. PATIENT IS INDEPENDANT WITH NEBS. PATIENT STATES HIS ONCOLOGIST TOLD HIM THEY SHOULD HAVE THE CANCER CLEANED UP IN 6MONTHS TO A YEAR TIME FRAME. PTNT/CG INSTRUCTED ON HYPOTENSION MGMT AND WARNING SIGNS. FIRST MANUAL BP TODAY WAS 100/62 LEFT ARM SITTING. PATIENT IS DOING MUCH BETTER SINCE MIDODRINE WAS INCREASED TO 5MG. PTNT APT 05/07 DR. NASEEM MORALEZ INSTRUCTED PTNT TO BRING MEDICATION LIST AND ARRIVE 15 MIN EARLY FOR CHECK-IN. PTNT VERBALIZED UNDERSTANDING. PTNT IN STABLE CONDITION UPON DEPARTURE FROM HOME.</paragraph> <paragraph>[Visit Date: 2024 by MACIEL SINGLETARY MICROWAVE RADIO TECHNICIAN]:</paragraph><paragraph>PATIENT SEEN FOR SKILLED THERAPY DUE TO PRIMARY DIAGNOSIS OF UNSPECIFIED PROTEIN-CALORIE MALNUTRITION. OTHER SIGNIFICANT PMH INCLUDES DYSPHAGIA, LUNG CANCER, GERD, COPD, ANXIETY, DEPRESSION, HLD, OA, AND O2 DEPENDENCE REQUIRING INCREASE ASSISTANCE FROM WITH FUNCTIONAL TASKS. PTNT DEMONSTRATES GOOD PROGRESS WITH TRANSFERS COMPLETED WITH 75% ACCURACY, CHAIR RISE TEST IMPROVED FROM 4 TO 8, FAIR + RETURN DEMO OBSERVED WITH SUPINE/SEATED LE HEP, GT DISTANCE PROGRESSED TO 75' AND LESS ASSIST, AND FAIR + RETURN DEMO OBSERVED WITH PURSED LIP BREATHING TECHNIQUE AND WHILE O2 DROPPED TO 88% ON 3 LPM WITH TASKS, LESS TIME REQUIRED FOR BREATHING PATTERN TO NORMALIZE AND O2 TO IMPROVE TO 95% ON 3 LPM. THERAPIST REVIEWED CONTINUED BENEFITS OF HEP/WALKING PROGRAM ALONG WITH ENERGY CONSERVATION TECHNIQUES. PTNT AGREES AND V/U OF ALL. PTNT TO BE REASSESSED NEXT VST BY SUPERVISING PT LISSET CATALAN TO ASSESS FOR FURTHER P.T. NEED.</paragraph> Encounters Start Date/Time End Date/Time Encounter Type Admission Type Attending [facility] Care Facility Care Department Encounter ID Discharge Date Discharge Status Discharge Condition Discharge Reason Percent Goals Met 2025-04-03 00:00:00 2025-06-01 00:00:00 Outpatient NEW ADMISSION DIMA FRANCIS [facility] [id number] 53.06
--- OUTSIDE RECORDS SUMMARY | 2025-04-29 21:52 | XMS_ITS | Clinical Summary ---
Author Organization Unknown Care Team Providers Care Pin Or Clip Fastener Name Role Phone TOMA SAUCEDA, BOY Unavailable Unava ilable ALAYNA PHYSICAL THERAPIST, LISSET Unavailable Unavailable FLORA SPEECH THERAPIST, MS, CCC/SUBEDITOR, RADHA Un available Unavailable GEMINI COOK LARDER, MACIEL Unagabriela ailable Unavailable BEAVERS JOURNEY COUNSELOR, LYNN Landaverdea ble Unavailable PENNY REGISTERED NURSE ASSEMBLY LEADER, DIMA Georgina vailable Unavailable COLÓN OCCUPATIONAL THERAPIST, [...] ON SUPPLEMENTAL OXYGEN Active 09-23 00:00: 00 LCPC (CURRENT) USE OF INHALED STEROIDS Active 09-23 [...] 10 mg alia 03-31 00:00: 00 Yes [id number] THRUSH 1 alia 3 TIMES DAILY 1 alia 3 TIMES DAILY (route: mucous membrane) Med Classific ation: Mouth-Thr oat-Denta l - Preparati ons ipratropium 0.5 mg-albutero l 3 mg (2.5 mg base)/3 mL nebulizatio n soln 03-31 00:00: 00 Yes [id number] WHEEZING/SH ORTNES OF BREATH 3 mL EVERY 6 HOURS 3 mL EVERY 6 HOURS (route: inhalation ) Med Classific ation: Respirato ry Therapy Agents Jevity 1.5 Gordo 0.06 gram-1.5 kcal/mL oral liquid 03-30 00:00: 00 Yes [id number] NUTRITION 300 mL 4 TIMES DAILY 300 mL 4 TIMES DAILY (route: oral) Alternate Route: G-TUBE. Med Classific ation: Electroly te Balance-N utritiona l Products lorazepam 2 mg tablet 03-31 00:00: 00 Yes [id number] ANXIETY 1 tablet TWICE DAILY 1 tablet TWICE DAILY (route: oral) Alternate Route: G-TUBE. Med Classific ation: Central Nervous System Agents oxygen gas for inhalation 03-31 00:00: 00 Yes [id number] HYPOXIA 2-3 Liter O2 - CONTINUOUS 2-3 Liter O2 - CONTINUOUS (route: inhalation ) Alternate Route: O2 - NASAL CANNULA. Med Classific ation: Medical Supplies and Durable Medical Equipment (DME) phenelzine 15 mg tablet 03-31 00:00: 00 Yes [id number] ANXIETY 1 tablet 3 TIMES DAILY 1 tablet 3 TIMES DAILY (route: oral) Alternate Route: G-TUBE. Med Classific ation: Central Nervous System Agents sucralfate 100 mg/mL oral suspension 03-31 00:00: 00 Yes [id number] PREVENT ULCERS 10 mL EVERY 4 HOURS 10 mL EVERY 4 HOURS (route: oral) Alternate Route: G-TUBE. Med Classific ation: Gastroint estinal Therapy Agents Trelegy Ellipta 100 mcg-62.5 mcg-25 mcg powder for inhalation 03-31 00:00: 00 Yes [id number] COPD 1 inhalat ion ONCE DAILY 1 inhalation ONCE DAILY (route: inhalation ) Med Classific ation: Respirato ry Therapy Agents midodrine 2.5 mg tablet 04-09 00:00: 00 04-22 23:59 :00 No [id number] HYPOTENSION 1 tablet 3 TIMES DAILY 1 tablet 3 TIMES DAILY (route: oral) Alternate Route: G-TUBE. Med Classific ation: Cardiovas cular Therapy Agents midodrine 5 mg tablet 04-22 00:00: 00 Yes [id number] HYPOTENSION 1 tablet 3 TIMES DAILY 1 [...] OR SITE COMPLICATIONS.] Future Scheduled Test [facility] TIFYING PHYSICIAN, ASSOCIATED PHYSICIAN, NPP OR PA [...] WILL BE ESTABLISHED THAT MEETS ALL PATIENT'S ASSISTED NEEDS AND COUNTER SIGNED BY PHYSICIAN. Goal [...] HOME.</paragraph> <paragraph>[Visit Date: 2024 by MACIEL SINGLETARY COOK LARDER]:</paragraph><paragraph>PATIENT SEEN FOR SKILLED THERAPY DUE TO PRIMARY [...] End Date/Time Encounter Type Admission Type Attending [facility] Care Facility Care Department Encounter ID Discharge Date Discharge Status Discharge Condition Discharge Reason Percent Goals Met 2025-04-03 00:00:00 2025-06-01 00:00:00 Outpatient NEW ADMISSION DIMA FRANCIS [facility] [id number] 53.06
--- OUTSIDE RECORDS SUMMARY | 2025-04-29 21:52 | XMS_ITS | Continuity of Care Document ---
Author Name [facility] Organization [facility] Care Team Providers Care Wheel Setter Name Role Phone [facility] Unavailable Unavailable Problems Combined list of problems from Department of Defense and [facility] Affairs facilities. It does not include entries that were removed or entered in error. 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 [facility] Folliculitis Active 1 Condition [facility] Malignant neoplasm of skin Active 1 Condition [facility] Melanoma of Skin Active 1 Condition [facility] Anxiety Disorder NOS Active 2 Condition [facility] Anxiety Disorder * (ICD-9-CM 300.00) Active Condition [facility] Anxiety Disorder NOS Active Condition [facility] Basal cell carcinoma of skin Active Condition [facility] Depression * (ICD-9-CM 300.4/311.) Active Condition [facility] Depression * (ICD-9-CM 311./300.4) Active Condition [facility] Dysthymic Disorder (ICD-9-CM 300.4) Active Condition [facility] Elevated PSA Active Condition [facility] Head and Neck Cancer, Unknown Site Active Condition Dec 21, 2008 Entered By: TIANNA LEBLANC Comment: has received radiation post neck surgeryDec 21, 2008 Entered By: TIANNA LEBLANC Comment: salivary glands goneDec 21, 2009 Entered By: TIANNA LEBLANC Comment: SCC, necklymph nodes, left nipple,2001Dec 21, 2009 Entered By: [facility]ANC [facility] Entered By: TIANNA LEBLANC Comment: records scanned [facility] Hyperkalemia * (ICD-9-CM 276.7) Active Condition [facility] Impacted Cerumen Active Condition [facility] Thong [facility] Internal hemorrhoids without mention of complication (ICD-9-CM 455.0) Active Condition [facility] Low Back Pain Active Condition [facility] Major Depressive Disorder, Recurrent Active Condition [facility] Major Depressive Disorder, Recurrent, Severe, without Psychotic Features (ICD-9- Active Condition [facility] Melanoma of Skin Active Condition Dec 21, 2008 Entered By: TIANNA LEBLANC Comment: Dr Day, several removed [facility] Memory loss Active Condition [facility] Mood Disorder NOS Active Condition [facility] Nicotine Dependence Active Condition Dec 21, 2009 Entered By: TIANNA LEBLANC Comment: declines treatment [facility] PANIC D/O W/0 AGORA Active Condition [facility] Personal History of Colonic Polyps Active Condition Nov 08, 2010 Entered By: ROMAINE ROBLES Comment: Due for repeat colonoscopy 08/2011 - 09/2011May 2011 Entered By: ANNMARIE GUARDADO Comment: repeat colonoscopy due in 08/2012 [facility] Prostate cancer Active Condition [facility] Sensory neuropathy Active Condition [facility] Tobacco use Active Condition [facility] Tobacco Use * (ICD-9-CM 305.1) Active Condition [facility] Vitamin D deficiency (SNOMED CT [id number]) Active Condition [facility] Medications Combined list of outpatient medications from [...] DAY ORAL ACTIVE CAR FIGUEREDO MD 2018 [facility] Immunizations Combined list of available immunizations from the Department of [facility] and Veterans Affairs facilities. Immunization Series Date Given Administered By Site Reaction Lot Number CVX Code Drug Surgery Assistant Status Comments Source COVID-19 (MODERNA), MRNA, LNP-S, PF, 100 MCG/0.5 ML DOSE 2 2020 207 complet ed MOD; [id number]; 1 [facility] COVID-19 (MODERNA), MRNA, LNP-S, PF, 100 MCG/0.5 ML DOSE 1 2020 207 complet ed MOD; [id number]; 1 [facility] TDAP 2012 115 complet ed Left Deltoid [facility] Procedures Combined list of: 1) Procedures from Department of Veterans Affairs facilities [facility], not all VA non-surgical procedures are included; 2) All procedures from the Department of Defense facilities. Procedure Procedure Type Code Date Perfomer Comments Sourc e COLLECTION OF VENOUS BLOOD B Y VENIPUNCTURE 11/22/2005 [facility] COLLECTION OF VENOUS BLOOD B Y VENIPUNCTURE 05/16/2005 [facility] Social History Combined list of available smoking, tobacco, and other social history from Department of Defense and Veterans Affairs facilities. 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 06/22/2019 [facility] History of tobacco use VA-TOBACCO USER EVERY DAY 02/24/2018 [facility] History of tobacco use TOBACCO USER OFFERED MEDS 11/27/2017 [facility] History of tobacco use QUIT TOBACCO >7 YEARS AGO 11/30/2014 [facility] History of tobacco use CURRENT TOBACCO USER 01/04/2014 Demetrio PRISCILLA [facility] History of tobacco use CURRENT TOBACCO USER 01/20/2013 [facility] History of tobacco use CURRENT TOBACCO USER 06/25/2012 Demetrio PR[facility]CILLA [facility] History of tobacco use CURRENT TOBACCO USER 07/19/2011 [facility] History of tobacco use CURRENT TOBACCO USER 07/17/2010 [facility] History of tobacco use CURRENT TOBACCO USER 12/20/[address] [facility] History of tobacco use CURRENT TOBACCO USER 12/21/[address] [facility] History of tobacco use CURRENT TOBACCO USER 10/28/2006 [facility] History of tobacco use PT REFUSED SMOKING CESSATION CLASSES 02/04/2004 [facility] History of tobacco use CURRENT TOBACCO USER 07/03/2001 [facility] This section is an empty social history section. [facility]D
--- OUTSIDE RECORDS SUMMARY | 2025-04-29 21:52 | XMS_ITS | Clinical Summary ---
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 Active Trelegy Ellipta 100-62.5-25 mcg Disk with Device Take 1 Puff by inhalation daily. 5 Active naloxone (NARCAN) 4 mg/spray Pandora, Non-Aerosol EMERGENCY USE ONLY: Administer 1 spray [...] Encounters Date Type Department Care Team Description 04/19/2025 Orders Only [facility] Oncology and Hematology - [place] [address] [place] [id number] Nba Ponce MD Malignant neoplasm of upper lobe of right lung (CMS/HCC) 04/12/2025 Orders Only [facility] Oncology and Hematology - [place] [address] [place] [address] Nba Ponce MD 04/08/2025 11:00 AM CDT Office Visit [facility] Oncology and Hematology - [place] [address] [place] [id number] Nba Ponce MD Malignant neoplasm of upper lobe of right lung (CMS/HCC) (Primary Dx); Osteoporosis, unspecified osteoporosis type, unspecified pathological fracture presence 04/05/2025 Orders Only [facility] Oncology and Hematology - [place] [address] [place] [id number] Nba Ponce MD Malignant neoplasm of upper lobe of right lung (CMS/HCC) 03/24/2025 Orders Only [facility] Oncology and Hematology - [place] [address] [place] [address] Nba Ponce MD 03/22/2025 Orders Only [facility] Oncology and Hematology - [place] [address] [place] [address] Nba Ponce MD Malignant neoplasm of upper lobe of right lung (CMS/HCC) 03/18/2025 Orders Only [facility] Oncology and Hematology - [place] [address] [place] [phone] Nba Ponce MD 03/17/2025 9:45 AM CDT Office Visit [facility] Oncology and Hematology - [place] [address] [place] [phone] Nba Ponce MD Malignant neoplasm of upper lobe of right lung (CMS/HCC) (Primary Dx) 03/16/2025 Orders Only [facility] Oncology and Hematology - [place] [address] [place] [id number] Nba Ponce MD 03/08/2025 Orders Only [facility] Oncology and Hematology - [place] [address] [place] [phone] Nba Ponce MD Malignant neoplasm of upper lobe of right lung (CMS/HCC) 03/03/2025 Orders Only [facility] Oncology and Hematology - [place] [address] [place] [phone] Nba Ponce MD 03/01/2025 Refill [facility] Oncology and Hematology - [place] [address] [place] [phone] Nba Ponce MD Malignant neoplasm of upper lobe of right lung (CMS/HCC) 02/26/2025 Orders Only [facility] Oncology and Hematology - [place] [address] [place] [phone] Nba Ponce MD 02/24/2025 Orders Only [facility] Oncology and Hematology - [place] [address] [place] [phone] Nba Ponce MD 02/23/2025 9:00 AM CDT Office Visit [facility] Oncology and Hematology - [place] [address] [place] [phone] Nba Ponce MD Malignant neoplasm of upper lobe of right lung (CMS/HCC) (Primary Dx) 02/22/2025 Orders Only [facility] Oncology and Hematology [facility] [address] Nba Ponce MD Malignant neoplasm of upper lobe of right lung (CMS/HCC) 02/17/2025 Abstract [facility] Oncology and Hematology [facility] [address] Nba Ponce MD 02/17/2025 Refill [facility] Oncology and Hematology [facility] [address] [place] [phone] Nba Ponce MD Malignant neoplasm of upper lobe of right lung (CMS/HCC) 02/17/2025 Telephone [facility] Oncology and Hematology [facility] [address] [place] [phone] Nba Ponce MD Hold Chemotherapy/Lab Results 02/11/2025 External Device Data 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, Abstract 02/10/2025 External Device Data 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, Abstract 02/10/2025 Orders Only [facility] Oncology and Hematology [facility] [address] [place] [phone] Nba Ponce MD Malignant neoplasm of upper lobe of right lung (CMS/HCC) (Primary Dx) 02/09/2025 External Device Data 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, Abstract 02/08/2025 Refill [facility] Oncology and Hematology [facility] [address] [place] [address] Nba Ponce MD Malignant neoplasm of upper lobe of right lung (CMS/HCC) 02/02/2025 Refill [facility] Oncology and Hematology [facility] [address] [place] [address] Nba Ponce MD Malignant neoplasm [...] on file 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 Gender Identity Not on file Sexual Orientation [...] Description 05/10/2025 2:00 PM CDT Office Visit [facility] Oncology and Hematology - [place] [address] [facility] [address] [place] [address] Nba Ponce MD [address] [place] [address] Health Maintenance Due Date Last Done Comments DTAP/TDAP/TD VACCINES (1 - Tdap) 1969 PNEUMOCOCCAL VACCINE 50+ YEA RS (1 of 2 - PCV) 1967 ZOSTER VACCINE (1 of 2) 1998 RSV VACCINE (60+ or ) (1 - 1-dose 75+ series) 2023 COVID-19 Vaccine (3 - season) 05/24/202411/2020, 11/27/2020 INFLUENZA VACCINE (#1) 2025 Procedures Procedure Name Priority Date/Time Associated Diagnosis Comments NM BONE DENSITY Routine 04/12/2025 9:23 AM CDT BASIC METABOLIC PANEL Routine 04/08/2025 4:50 PM CDT CBC WITH DIFFERENTIAL Routine 04/08/2025 4:50 PM CDT COMPREHENSIVE METABOLIC PANEL Routine 03/24/2025 12:26 PM [...] METABOLIC PANEL Routine 02/10/2025 10:28 AM CDT from Last 3 Months Results * NM BONE DENSITY (04/12/2025 9:23 AM CDT) Anatomical Region Laterality Modality Nuclear Medicine Nba Ponce MD NM ORDERABLES Final Result * BASIC METABOLIC PANEL (04/08/2025 4:50 PM CDT) Only the most recent of5 resultswithin the time period is included. Blood Nba Ponce MD CHEMISTRY ORDERABLES Final Resu lt * CBC WITH DIFFERENTIAL (04/08/2025 4:50 PM CDT) Only the most recent of3 resultswithin the time period is included. Blood us Nba Ponce MD HEMATOLOGY ORDERABLES Final Res ult * COMPREHENSIVE METABOLIC PANEL (03/24/2025 12:26 PM CDT) Only the most recent of6 resultswithin the time period is included. Blood us Nba Ponce MD CHEMISTRY ORDERABLES Final Resu lt from Last 3 Months Insurance GENERIC MEDICARE MANAGED CARE
[2025-04-29 22:00] LABS: Hematocrit 26.6 % (42.0-52.0); Hemoglobin 7.8 g/dL (14.0-18.0); Immature Granulocyte Percent A 1.0 % (0-0.5); Lymphocytes Absolute Auto 0.75 K/mm3 (0.9-3.2); Mean Corpuscular HGB Conc 29.3 g/dl (32-36); Mean Corpuscular Hemoglobin 28.3 pg (26-34); Mean Corpuscular Volume 96.4 fl (80-100); Nucleated Red Blood Cells Absolute Auto 0.000 K/mm3 (0.0-0.012); Nucleated Red Blood Cells Perc 0.0 % (0.0-0.2); Platelet Count Result 401 k/mm3 (150-375); Red Blood Count 2.76 M/mm3 (4.6-6.20); White Blood Count 7.3 K/mm3 (4.5-10.0)
[2025-04-29 22:09] LABS: Anisocytosis 1+; Hypochromasia 1+; Schistocytes None Seen
[2025-04-29 22:16] VITALS: BP 106/72; PULSE 102; RESP 21; O2SAT 100
[2025-04-29 22:31] VITALS: BP 100/70; PULSE 104; RESP 23; O2SAT 97
[2025-04-29 22:40] LABS: Alanine Aminotransferase 16 U/L (6-50); Albumin Level 3.6 g/dL (3.5-5.1); Alkaline Phosphatase 115 U/L (38-126); Anion Gap 8 mmol/L (4-12); Aspartate Amino Transferase 27 U/L (17-59); Bilirubin,Total 0.3 mg/dL (0.2-1.3); Blood Urea Nitrogen 72 mg/dL (9-20); Calcium 9.3 mg/dL (8.4-10.2); Carbon Dioxide 37 mmol/L (22-30); Chloride 88 mmol/L (98-107); Estimated Glomerular Filt Rate > 60; Glucose 148 mg/dL (65-110); Potassium 5.7 mmol/L (3.4-5.0); Sodium 133 mmol/L (137-145); Total Protein 7.0 g/dL (6.3-8.2)
[2025-04-29 22:46] VITALS: BP 112/57; RESP 19; O2SAT 100
--- NOTE | 2025-04-29 23:14 | ED_ITS ---
HPI - SOB/Dyspnea General Chief Complaint: Shortness of Breath/Dyspnea Stated Complaint: WORSENING SOB Time Seen by Provider: 04/29/25 21:44 Source: patient and family History of Present Illness HPI Narrative: Patient from home presents with worsening shortness of breath all day. History of COPD and multiple malginancies. Currently has lung cancer, done with radiation for now given how weak he has been, still receiving chemo. Support person notes he has been sleeping a lot, so week he slid off the couch, though also reportedly fell yesterday. No fevers/chills. Typically on 3LPM at home but EMS found saturating 50% on these settings, applied NRB at 15LPM and saturation improved to 80. Also gave DuoNeb and Mag and got to 95% on NRB. Has had a productive cough. No N/V/D. Auditory wheezes/crackles by report. History of hypotension for which he is on midodrine. No prior bipap or intubation. Not on anticoagulation. Still receiving cancer therapies but otherwise reports DNR (comfort measures?). Related Data Home Medications ?Medication ?Instructions ?Recorded ?Confirmed ?Last Taken ?Type fluticasone fur. 100 mcg-umeclid 1 inh inhalation Q24H 03/18/25 04/30/25 Unknown History 62.5 mcg-vilant 25 mcg inhalat.powder (Trelegy Ellipta) albuterol sulfate 0.63 mg/3 mL 0.63 mg continuous nebulization 04/07/25 04/30/25 Unknown History solution for nebulization Q6-8H PRN bronchospasm Allergies Allergy/AdvReac Type Severity Reaction Status Date / Time No Known Allergies Allergy Verified 04/08/25 14:58 [facility] Past Medical History Medical History Chronic neck and back pain Encounter for feeding tube placement (~03/2025) Greater trochanter fracture (~01/2024) Non-small cell carcinoma of right lung (~12/2024) Respiratory failure (~10/2024) Hx of malignant neoplasm of prostate GERD without esophagitis Hyperlipidemia Skin cancer History of fracture of left hip COPD (chronic obstructive pulmonary disease) 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 Prostate cancer Recently discovered on biopsy. Apparently low-grade and is being followed by surveillance. Melanoma Melanoma x2 excised from the chest. Anxiety Depression Arthritis Back fracture T12 fracture in 1992. Surgical History Surgical History History of radical neck dissection 1999; ENT Dr Basurto ([place]/[facility]) Status post-operative repair of closed fracture of left hip Status post surgical removal of malignant neoplasm of skin Including melanoma from the chest and basal cell carcinoma from the cheek and arms. History of back surgery Hx of appendectomy Family History Family History Mother Congestive heart failure Social History Social History Social History: The patient is to his 3rd and lives in [place]. He has 13 children, youngest is 3. He is retired, worked for the [employer]. He designates his , Nicole, as his surrogate decision maker and he wishes to be a full code. Smoking packs per day: 2 Smoking cigarettes per day: 40.0 Years smoked: 50 Smoking pack-years: 100.00 Smoking status: Former smoker Tobacco type: cigarettes Smoking end date: 10/29/24 Alcohol intake: never Substance use: never Substance use type: does not use Last use: oct 29, 2024 Do You Feel Safe in your Home?: Yes Lack of Transportation: No Lack of Food: Never True Current Housing: I Have Housing Concerned About Future Housing: No Difficulty Paying Gas/Electric Bills: No Difficulty Paying for Meds: No Currently Unemployed: No Education: Bachelor's Degree Difficulty w/ Childcare or Family Care: No Living arrangements: with family Additional living arrangements comments: Occupation/Education: retired Gender identity (if verbalized by the patient): Male Sexual Orientation (if Verbalized by the Patient): Straight or Heterosexual Spiritual care concerns: No Agree to blood products: Yes Exam 2 Narrative: GENERAL: Chronically ill-appearing, tired HEAD: atraumatic; asymmetric jaw /neck due to surgeries EYES: Non injected, non icteric ENT: No epistaxis. Gross auditory acuity intact. NECK: Supple. No meningismus. CHEST: Tachypneic, coarse bilateral breath sounds with wheezes and rhonchi HEART: Tachycardic rate and rhythm. . ABDOMEN: Soft, nondistended. No rigidity or guarding. Not peritoneal EXTREMITIES: No lower extremity edema. SKIN: Warm, dry, no rash. NEURO: No focal deficits. Alert and oriented. Answering questions. Following commands. Normal speech without aphasia or dysarthria. PSYCH: Congruent mood and affect. Course Vital Signs Vital signs: Vital Signs Temperature 98.2 F 04/29/25 21:35 Pulse Rate 105 H 04/29/25 21:35 Respiratory Rate 21 H 04/29/25 21:35 Blood Pressure 102/66 04/29/25 21:35 Pulse Oximetry 95 04/29/25 21:35 Oxygen Delivery Non-Rebreather Mask 04/29/25 21:35 Oxygen Flow Rate 10 04/29/25 21:35 Temperature 97.5 F L 05/02/25 08:00 Pulse Rate 96 05/02/25 09:16 Respiratory Rate 16 05/02/25 09:16 Blood Pressure 119/77 05/02/25 08:00 Pulse Oximetry 90 05/02/25 09:07 Oxygen Delivery High Flow Therapy with Nasal Cannula 05/02/25 09:07 Oxygen Flow Rate 35 05/02/25 09:07 Fraction of Inspired Oxygen 45 05/02/25 09:07 MDM - SOB/Dyspnea MDM Narrative Medical decision making narrative: Patient presents with worsening shortness of breath. On 3LPM baseline for history COPD and with lung cancer. Previous history of other malignancies including head/neck/throat s/p surgeries. Currently on chemo and radiation though latter currently paused given how weak he is. In the emergency department he is afebrile with vital signs notable for mild tachypnea and mild tachycardia although saturating appropriately on non- rebreather. 500cc IV fluids ordered for mild lactic acid elevation. Patient has a normocytic anemia; has been variable but otherwise appears relatively stable. He also has a mild thrombocytosis. He also has hyperkalemia at 5.7. Calcium gluconate and high-dose albuterol ordered. Hyperglycemia with no anion gap and not acidotic. Normal renal function. CRP is elevated. BNP is elevated, borderline for acute heart failure. === Given patient's metastatic cancer, recommend continuing conversations of goals of care to establish values and wishes as discuss further treatments and interventions. Of note, Medicare guidelines for hospice eligibility a for patients with cancer are as follows: Patient will considered to be in the terminal stage ( life expectancy of 6 months or less) if they meet ALL of the following criteria: 1. clinical findings of malignancy with widespread, aggressive or progressive disease as evidenced by increasing symptoms, worsening lab values and or evidence of metastatic disease. 2. Palliative performance scale (PPS) </=70% 3. refuses further life-prolonging therapy OR continues to decline in spite of definite therapy. Supporting documentation includes: Hypercalcemia >12 Cachexia or weight loss of 5% past 3 months Signs and symptoms of advanced disease ( nausea, requirement for transfusions, malignant ascites or pleural effusion, etc.) Given this, a palliative care consult might be appropriate. == 2 liters IV fluids total have been ordered (30cc/kg = [id number]). Have obtained lactic, blood cultures, and CRP, and initiated broad spectrum antibiotics (vancomycin, azithromycin, cephalosporin) for concern for sepsis for which respiratory etiology (PNA) is most likely. Bipap ordered given ABG shows retention, though discussed with RT. Will trial high flow / Vapotherm first for comfort and mild peep. Patient might not be a great BIPAP candidate in general and especially at present, partially because of coughing and risk of aspiration but also structurally given surgeries on face, may have difficulty with forming a seal. Confirmed code status of dnr/DNI with patient and , he confirms. Admitted to hospitalist Torsten. Differential Diagnosis Differential diagnosis: Likely acute exacerbation of chronic obstructive airways disease, congestive heart failure, community acquired pneumonia, pulmonary embolism and other (acute viral syndrome; pleural effusion; sequelae/advancing lung cancer; radiation side effect/pneumonitis; ACS) Lab Data Attestation: I reviewed the patient's lab results. 05/01/25 20:25 05/01/25 05:56 Labs: Lab Results 04/29/25 04/29/25 04/29/25 Range/Units 21:52 21:52 23:24 WBC 7.3 (4.5-10.0) K/mm3 RBC 2.76 L (4.6-6.20) M/mm3 Hgb 7.8 L (14.0-18.0) g/dL Hct 26.6 L (42.0-52.0) % MCV 96.4 (80-100) fl MCH 28.3 (26-34) pg MCHC 29.3 L (32-36) g/dl RDW 18.9 H (11.5-14.5) % Plt Count 401 H (150-375) k/mm3 MPV 9.8 (7.4-10.4) fl Immature Gran % (Auto) 1.0 H (0-0.5) % Neut % (Auto) 77.6 H (45.5-73.1) % Lymph % (Auto) 10.3 L (18.3-44.2) % Hamilton % (Auto) 8.0 (2.6-8.5) % Eos % (Auto) 2.7 (0-4.4) % Baso % (Auto) 0.4 (0.2-1.2) % Lymph # (Auto) 0.75 L (0.9-3.2) K/mm3 Hamilton # (Auto) 0.6 (0.1-0.6) K/mm3 Eos # (Auto) 0.2 (0-0.3) K/mm3 Baso # (Auto) 0.0 (0.0-0.1) K/mm3 Abs Immat Gran (auto) 0.07 H (0.00-0.031) K/mm3 Absolute Neuts (auto) 5.7 (1.3-6.7) K/mm3 Absolute Nucleated RBC 0.000 (0.0-0.012) K/mm3 Total Counted Neutrophils % (Manual) (46-73) % Band Neutrophils % Not Reportable Lymphocytes % (Manual) (18-44) % Monocytes % (Manual) (3-9) % Nucleated RBC % 0.0 (0.0-0.2) % Abs Neuts (Manual) (1.3-6.7) K/mm3 Abs Lymphs (Manual) (1.1-4.5) K/mm3 Abs Monocytes (Manual) (0.1-0.90) K/mm3 Platelet Estimate Increased (Adequate) Large Platelets Hypochromasia 1+ Anisocytosis 1+ Stomatocytes Schistocytes None seen Sodium 133 L (137-145) mmol/L Potassium 5.7 H (3.4-5.0) mmol/L Chloride 88 L (98-107) mmol/L Carbon Dioxide 37 H (22-30) mmol/L Anion Gap 8 (4-12) mmol/L BUN 72 H D (9-20) mg/dL Creatinine 0.72 (0.7-1.3) mg/dL Estim Creat Clear Calc Not Reportable Estimated GFR > 60 (59 - ) Glucose 148 H (65-110) mg/dL POC Capillary Glucose (65-105) mg/dl Lactic Acid 2.2 H (0.7-2.0) mmol/L Calcium 9.3 (8.4-10.2) mg/dL Phosphorus (2.5-4.5) mg/dL Magnesium (1.6-2.3) mg/dL Total Bilirubin 0.3 (0.2-1.3) mg/dL AST 27 (17-59) U/L ALT 16 (6-50) U/L Alkaline Phosphatase 115 (38-126) U/L Troponin I < 0.012 (0.000-0.034) ng/mL C-Reactive Protein Cancelled 7.6 H NT-Pro-B Natriuret Pep 1780 H (19.9-100) pg/mL Total Protein 7.0 (6.3-8.2) g/dL Albumin 3.6 (3.5-5.1) g/dL Urine Color (Yellow) Urine Appearance (Clear) Urine pH (5.0-9.0) Ur Specific Gillett (1.001-1.035) Urine Protein (Negative) mg/dL Urine Glucose (UA) (Negative) mg/dL Urine Ketones (Negative) mg/dL Ur Blood (Man) (Negative) Urine Nitrate (Negative) Urine Bilirubin (Negative) Urine Urobilinogen (<2.0) mg/dL Add Ur Microanalysis Leukocyte Esterase Rfl (Negative) TERRELL/UL Urine RBC (0-2) /hpf Urine WBC (0-3) /hpf Ur Squamous Epith Cells (Few) /hpf Urine Bacteria /hpf Urine Casts Hyaline Casts (None) /lpf Nasal MRSA (PCR) (NOT DETECTE) Influenza A (RT-PCR) Negative (Negative) Influenza B (RT-PCR) Negative (Negative) RSV (RT-PCR) Negative (Negative) SARS-CoV-2 RNA (RT-PCR) Negative (Negative) 04/30/25 04/30/25 04/30/25 Range/Units 01:20 01:22 02:27 WBC (4.5-10.0) K/mm3 RBC (4.6-6.20) M/mm3 Hgb (14.0-18.0) g/dL Hct (42.0-52.0) % MCV (80-100) fl MCH (26-34) pg MCHC (32-36) g/dl RDW (11.5-14.5) % Plt Count (150-375) k/mm3 MPV (7.4-10.4) fl Immature Gran % (Auto) (0-0.5) % Neut % (Auto) (45.5-73.1) % Lymph % (Auto) (18.3-44.2) % Hamilton % (Auto) (2.6-8.5) % Eos % (Auto) (0-4.4) % Baso % (Auto) (0.2-1.2) % Lymph # (Auto) (0.9-3.2) K/mm3 Hamilton # (Auto) (0.1-0.6) K/mm3 Eos # (Auto) (0-0.3) K/mm3 Baso # (Auto) (0.0-0.1) K/mm3 Abs Immat Gran (auto) (0.00-0.031) K/mm3 Absolute Neuts (auto) (1.3-6.7) K/mm3 Absolute Nucleated RBC (0.0-0.012) K/mm3 Total Counted Neutrophils % (Manual) (46-73) % Band Neutrophils % Lymphocytes % (Manual) (18-44) % Monocytes % (Manual) (3-9) % Nucleated RBC % (0.0-0.2) % Abs Neuts (Manual) (1.3-6.7) K/mm3 Abs Lymphs (Manual) (1.1-4.5) K/mm3 Abs Monocytes (Manual) (0.1-0.90) K/mm3 Platelet Estimate (Adequate) Large Platelets Hypochromasia Anisocytosis Stomatocytes Schistocytes Sodium (137-145) mmol/L Potassium (3.4-5.0) mmol/L Chloride (98-107) mmol/L Carbon Dioxide (22-30) mmol/L Anion Gap (4-12) mmol/L BUN (9-20) mg/dL Creatinine (0.7-1.3) mg/dL Estim Creat Clear Calc Estimated GFR (59 - ) Glucose (65-110) mg/dL POC Capillary Glucose 279 H (65-105) mg/dl Lactic Acid (0.7-2.0) mmol/L Calcium (8.4-10.2) mg/dL Phosphorus (2.5-4.5) mg/dL Magnesium (1.6-2.3) mg/dL Total Bilirubin (0.2-1.3) mg/dL AST (17-59) U/L ALT (6-50) U/L Alkaline Phosphatase (38-126) U/L Troponin I (0.000-0.034) ng/mL C-Reactive Protein NT-Pro-B Natriuret Pep (19.9-100) pg/mL Total Protein (6.3-8.2) g/dL Albumin (3.5-5.1) g/dL Urine Color Yellow (Yellow) Urine Appearance Clear (Clear) Urine pH 7.0 (5.0-9.0) Ur Specific Gillett 1.017 (1.001-1.035) Urine Protein 1+ H (Negative) mg/dL Urine Glucose (UA) Negative (Negative) mg/dL Urine Ketones Trace H (Negative) mg/dL Ur Blood (Man) Negative (Negative) Urine Nitrate Negative (Negative) Urine Bilirubin Negative (Negative) Urine Urobilinogen 0.2 (<2.0) mg/dL Add Ur Microanalysis Reviewed Leukocyte Esterase Rfl Negative (Negative) TERRELL/UL Urine RBC 0-2 (0-2) /hpf Urine WBC 0-5 (0-3) /hpf Ur Squamous Epith Cells None seen (Few) /hpf Urine Bacteria None seen /hpf Urine Casts 0-2 Hyaline Casts Present (None) /lpf Nasal MRSA (PCR) Not detected (NOT DETECTE) Influenza A (RT-PCR) (Negative) Influenza B (RT-PCR) (Negative) RSV (RT-PCR) (Negative) SARS-CoV-2 RNA (RT-PCR) (Negative) 04/30/25 04/30/25 04/30/25 Range/Units 02:52 03:09 06:28 WBC 11.7 H (4.5-10.0) K/mm3 RBC 2.45 L (4.6-6.20) M/mm3 Hgb 7.0 L (14.0-18.0) g/dL Hct 23.3 L (42.0-52.0) % MCV 95.1 (80-100) fl MCH 28.6 (26-34) pg MCHC 30.0 L (32-36) g/dl RDW 18.8 H (11.5-14.5) % Plt Count 308 (150-375) k/mm3 MPV 9.5 (7.4-10.4) fl Immature Gran % (Auto) Not Reportable (0-0.5) % Neut % (Auto) Not Reportable (45.5-73.1) % Lymph % (Auto) Not Reportable (18.3-44.2) % Hamilton % (Auto) Not Reportable (2.6-8.5) % Eos % (Auto) Not Reportable (0-4.4) % Baso % (Auto) Not Reportable (0.2-1.2) % Lymph # (Auto) Not Reportable (0.9-3.2) K/mm3 Hamilton # (Auto) Not Reportable (0.1-0.6) K/mm3 Eos # (Auto) Not Reportable (0-0.3) K/mm3 Baso # (Auto) Not Reportable (0.0-0.1) K/mm3 Abs Immat Gran (auto) Not Reportable (0.00-0.031) K/mm3 Absolute Neuts (auto) Not Reportable (1.3-6.7) K/mm3 Absolute Nucleated RBC Not Reportable (0.0-0.012) K/mm3 Total Counted 100 Neutrophils % (Manual) 60 (46-73) % Band Neutrophils % 35 H Lymphocytes % (Manual) 2 L (18-44) % Monocytes % (Manual) 3 (3-9) % Nucleated RBC % Not Reportable (0.0-0.2) % Abs Neuts (Manual) 11.11 H (1.3-6.7) K/mm3 Abs Lymphs (Manual) 0.23 L (1.1-4.5) K/mm3 Abs Monocytes (Manual) 0.35 (0.1-0.90) K/mm3 Platelet Estimate Adequate (Adequate) Large Platelets Present Hypochromasia 1+ Anisocytosis 2+ Stomatocytes 2+ Schistocytes None seen Sodium 132 L (137-145) mmol/L Potassium 3.7 (3.4-5.0) mmol/L Chloride 92 L (98-107) mmol/L Carbon Dioxide 36 H (22-30) mmol/L Anion Gap 4 (4-12) mmol/L BUN 53 H D (9-20) mg/dL Creatinine 0.53 L (0.7-1.3) mg/dL Estim Creat Clear Calc 84 Estimated GFR > 60 (59 - ) Glucose 151 H (65-110) mg/dL POC Capillary Glucose 176 H (65-105) mg/dl Lactic Acid 2.4 H (0.7-2.0) mmol/L Calcium 8.4 (8.4-10.2) mg/dL Phosphorus 2.8 (2.5-4.5) mg/dL Magnesium 2.0 (1.6-2.3) mg/dL Total Bilirubin (0.2-1.3) mg/dL AST (17-59) U/L ALT (6-50) U/L Alkaline Phosphatase (38-126) U/L Troponin I (0.000-0.034) ng/mL C-Reactive Protein NT-Pro-B Natriuret Pep (19.9-100) pg/mL Total Protein (6.3-8.2) g/dL Albumin 3.2 L (3.5-5.1) g/dL Urine Color (Yellow) Urine Appearance (Clear) Urine pH (5.0-9.0) Ur Specific Gillett (1.001-1.035) Urine Protein (Negative) mg/dL Urine Glucose (UA) (Negative) mg/dL Urine Ketones (Negative) mg/dL Ur Blood (Man) (Negative) Urine Nitrate (Negative) Urine Bilirubin (Negative) Urine Urobilinogen (<2.0) mg/dL Add Ur Microanalysis Leukocyte Esterase Rfl (Negative) TERRELL/UL Urine RBC (0-2) /hpf Urine WBC (0-3) /hpf Ur Squamous Epith Cells (Few) /hpf Urine Bacteria /hpf Urine Casts Hyaline Casts (None) /lpf Nasal MRSA (PCR) (NOT DETECTE) Influenza A (RT-PCR) (Negative) Influenza B (RT-PCR) (Negative) RSV (RT-PCR) (Negative) SARS-CoV-2 RNA (RT-PCR) (Negative) ABG Data ABG results: 04/30/25 00:05 Puncture Site Right radial ABG pH 7.324 L ABG pCO2 75.8 H* ABG pO2 61.2 L ABG PO2/FiO2 Ratio 0.61 ABG HCO3 38.5 H ABG O2 Saturation 88.4 L ABG O2 Content 13.1 L ABG Base Excess 10.2 A-a Gradient 576.0 Oxyhemoglobin 87.1 L* Total Hemoglobin 10.7 L O2 Delivery Device Non-rebreather mask O2 Liters/Min 15.0 FiO2 100 Imaging Data Radiologist's impression: IMPRESSION: Chronic interstitial change with a small left-sided pleural effusion and adjacent compressive atelectasis. Impression: Examination is markedly limited by a significant amount of motion artifact. No large acute intracranial hemorrhage or suspicious significant mass effect. IMPRESSION: No pulmonary embolus. No thoracic aortic dissection. Post radiation change within the right upper lobe with increase in size of the cavitary consolidation. Left apical scarring. Interval development of patchy groundglass opacification of the bilateral lung bases. Severe panlobular emphysematous disease redemonstrated. Tree-in-bud opacification of right upper lobe, an interval change from prior. Interval increase in size of an irregular focus of decreased attenuation within segment 7 of the liver when compared with previous study dated 03/14/2025 for which a metastatic lesion is suspected. If needed, this area is accessible via percutaneous biopsy, if not already performed. Impression: Significant degenerative disease, without acute significantly displaced fractures, as detailed above ECG Data EKG #1: Attestation: I personally reviewed and interpreted this ECG as follows: ECG completion date: 04/29/25 ECG completion time: 21:45 Interpretation: Sinus tachycardia at a rate of 103 beats per minute. AL interval 146. QRS 98. QT/QTC 324/425. Good R-wave progression across the precordial leads. No T-wave inversions. Appears to be ventricular conduction delay. Discharge Plan Discharge Clinical Impression: Shortness of breath, Normocytic anemia, CRP elevated, DDD (degenerative disc disease), cervical, COPD exacerbation, Ground glass opacity present on imaging of lung, Lung cancer, Hyperkalemia, Pneumonia, Acute and chronic respiratory failure with hypercapnia, Dependence on continuous supplemental oxygen Patient Disposition: Still a Patient Condition: Serious
[2025-04-29] MEDS: SODIUM CHLORIDE 0.9% IV 500 ML 999 ML IV CONT (23:25)
[2025-04-29 23:31] VITALS: BP 111/86; PULSE 100; RESP 18; O2SAT 90
[2025-04-29 23:41] LABS: CRP 7.6 mg/dL (<1.0)
[2025-04-29 23:49] LABS: NT Pro B Type Natriuretic Pept 1780 pg/mL (19.9-100); Troponin I < 0.012 ng/mL (0.000-0.034)
[2025-04-30] VITALS (35 sets, daily range): BP systolic 93–138; BP diastolic 43–104; PULSE 59–130; RESP 18–27; TEMP 36.1–37.8; O2SAT 85–99; BMI 17.7; BMI 17.9
[2025-04-30] MEDS: ALBUTEROL SULFATE NEB 2.5 MG/3 ML INH 10 MG INHALATION (00:03)
[2025-04-30] MEDS: CALCIUM GLUCONATE 1,000 MG/10 ML VIAL 1000 MG IV PUSH (00:12)
[2025-04-30 00:19] LABS: Alveolar/Arterial O2 Gradient 576.0 mmHg; Fractional Inspired Oxygen 100 %; HCO3 ABG 38.5 mEq/l (22.0-26.0); Oxygen Content ABG 13.1 %vol (16.0-22.0); Oxygen Saturation ABG 88.4 % (95.0-100.0); PO2 ABG 61.2 mmHg (80.0-100.0); PO2 FiO2 Ratio Arterial Blood 0.61 %
[2025-04-30 00:22] LABS: PCO2 ABG 75.8 mmHg (35.0-45.0)
[2025-04-30 00:23] LABS: Liters per Minute 15.0 LPM; Modified Allen's Test Pass; Site Drawn RIGHT RADIAL
[2025-04-30 01:09] LABS: Influenza A QL RT-PCR Negative (Negative); Influenza B QL RT-PCR Negative (Negative); RSV RNA, RT-PCR Negative (Negative); SARS-CoV-2 RNA PCR Negative (Negative)
[2025-04-30] MEDS: cefTRIAXone 1 GM in SODIUM CHLORIDE 0.9% IV 50 ML 100 ML IVPB (01:18)
[2025-04-30 01:43] LABS: Add Urine Microscopic? YES; Appearance Urine Clear (Clear); Glucose Urine UA Negative (Negative); Leukocyte Esterase Ur Negative LEU/UL (Negative); Need Manual Microscopic Reviewed; Nitrate Urine Negative (Negative); Non Pathogenic Casts 0-2; Specific Grav Ur 1.017 (1.001-1.035)
[2025-04-30] MEDS: SODIUM CHLORIDE 0.9% IV 1,000 ML 999 ML IV CONT (02:12)
[2025-04-30] MEDS: FUROSEMIDE INJ 40 MG/4 ML VIAL 20 MG IV PUSH (02:13)
[2025-04-30] MEDS: DEXTROSE 50% 25 GM/50 ML SYRINGE IV PUSH (02:14)
[2025-04-30] MEDS: IPRATROPIUM 0.5 MG/ALBUTEROL SULFATE 2.5 MG AMPUL.NEB 3 ML INHALATION ×4 (02:16→20:39)
[2025-04-30] MEDS: INSULIN HUMAN REGULAR (*BKC) 100 UNITS/ML 10 UNITS IV PUSH (02:17)
[2025-04-30] MEDS: AZITHROMYCIN IV 500 MG in SODIUM CHLORIDE 0.9% IV 250 ML IVPB ×2 (02:18→20:13)
[2025-04-30 02:40] LABS: MRSA (PCR) NOT DETECTED (NOT DETECTE)
--- NOTE | 2025-04-30 03:51 | ADMGEN ---
This patient, Rogelio Kearney, was admitted to IMU Room 213-01. Patient/family oriented to hospital policies and general routines including ID bracelet, bed and alarms, visiting hours, pain management, procedures, bathroom and other care routines, personal items, smoking policy, room service/diet, and visiting hours. Information on how to activate the Rapid Response Team has been discussed. Patient/Family are encouraged to report perceived risks to care and to ask questions if they do not understand what they are told or what they should do.
[2025-04-30] MEDS: VANCOMYCIN 1,500 MG/NS 500 ML 1,500 MG/500 ML BAG 250 MG IVPB (04:01)
[2025-04-30] MEDS: CENTRAL LINE FLUSH 10 ML IV PUSH ×3 (06:07→21:22)
[2025-04-30 06:36] LABS: Hematocrit 23.3 % (42.0-52.0); Hemoglobin 7.0 g/dL (14.0-18.0); Mean Corpuscular HGB Conc 30.0 g/dl (32-36); Mean Corpuscular Hemoglobin 28.6 pg (26-34); Mean Corpuscular Volume 95.1 fl (80-100); Platelet Count Result 308 k/mm3 (150-375); Red Blood Count 2.45 M/mm3 (4.6-6.20); White Blood Count 11.7 K/mm3 (4.5-10.0)
[2025-04-30 07:12] LABS: Band Neutrophils Percent 35 % (0-6); Lymphocytes Absolute Manual 0.23 K/mm3 (1.1-4.5); Lymphocytes Percent Manual 2 % (18-44); Monocytes Absolute Manual 0.35 K/mm3 (0.1-0.90); Monocytes Percent Manual 3 % (3-9); Neutrophils Absolute Manual 11.11 K/mm3 (1.3-6.7); Neutrophils Percent Manual 60 % (46-73); Total Cells Counted 100
[2025-04-30 07:13] LABS: Anisocytosis 2+; Hypochromasia 1+; Schistocytes None Seen; Stomatocytes 2+
[2025-04-30 07:15] LABS: Albumin Level 3.2 g/dL (3.5-5.1); Anion Gap 4 mmol/L (4-12); Blood Urea Nitrogen 53 mg/dL (9-20); Calcium 8.4 mg/dL (8.4-10.2); Carbon Dioxide 36 mmol/L (22-30); Chloride 92 mmol/L (98-107); Estimated CRCL calculation 84 ml/min; Estimated Glomerular Filt Rate > 60; Glucose 151 mg/dL (65-110); Magnesium 2.0 mg/dL (1.6-2.3); Potassium 3.7 mmol/L (3.4-5.0); Sodium 132 mmol/L (137-145)
[2025-04-30] MEDS: ACETAMINOPHEN 325 MG TABLET 650 MG PO ×3 (08:24→18:17)
[2025-04-30] MEDS: CLOTRIMAZOLE 10 MG TROC MUCOUS MEM ×3 (08:25→18:17)
[2025-04-30] MEDS: MIDODRINE HCL 2.5 MG TABLET 5 MG PO ×3 (08:25→18:18)
[2025-04-30] MEDS: CEFEPIME 2 GM in SODIUM CHLORIDE 0.9% IV 50 ML 100 ML IVPB ×2 (13:29→18:16)
--- NOTE | 2025-04-30 14:38 | P.HP_ITS ---
H&P: HPI History of Present Illness Date/Time: 04/30/25 14:38 Chief Complaint: Shortness of breath Narrative: At this time the history is taken from chart review. Currently incomplete charting from the ER. Spoke with nursing about this patient's admission history. Unable to contact family member. Patient has chronic hoarse voice from prior tonsillectomy but he is able to communicate as he is alert and orie nted. 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 Ponce, GERD, hyperlipidemia, COPD, prior tobacco abuse quit 10/2024, depression with anxiety, arthritis presents to [facility] ER on 04/30/2025 as he was having shortness of breath. In the ER he was afebrile with tachypnea and tachycardia and was placed on a non-rebreather, later changed to a high-flow nasal cannula. Given DuoNeb treatment. He had mild lactic acid elevation and was given 2 L fluid bolus. It appears at some point he was given Lasix although. Hyperkalemia, given calcium gluconate and high-dose albuterol, dextrose and insulin. CRP elevated, BNP elevated. Started on vancomycin ceftriaxone and azithromycin. Given Solu-Medrol 125 mg IV x1. Upon repeat evaluation he is on high-flow nasal cannula, does not complain of any symptoms moment, endorses a new cough and while in the room coughing muddy brown/yellow sputum. He also has drainage from his PEG orifice. Review of Systems Review of Systems: All systems reviewed & are unremarkable except as noted in HPI and below (Subjective/HPI) [facility] Past Medical History Medical History Chronic neck and back pain Encounter for feeding tube placement (~03/2025) Greater trochanter fracture (~01/2024) Non-small cell carcinoma of right lung (~12/2024) Respiratory failure (~10/2024) Hx of malignant neoplasm of prostate GERD without esophagitis Hyperlipidemia Skin cancer History of fracture of left hip COPD (chronic obstructive pulmonary disease) Squamous cell carcinoma of tonsil Status post radical neck dissection with chemotherapy and radiation treatment in 2001. Prostate cancer Recently discovered on biopsy. Apparently low-grade and is being followed by surveillance. Melanoma Melanoma x2 excised from the chest. Anxiety Depression Arthritis Back fracture T12 fracture in 1992. Surgical History Surgical History History of radical neck dissection 1999; ENT Dr Basurto ([facility]) Status post-operative repair of closed fracture of left hip Status post surgical removal of malignant neoplasm of skin Including melanoma from the chest and basal cell carcinoma from the cheek and arms. History of back surgery Hx of appendectomy Family History Family History Mother Congestive heart failure Social History Social History Social History: The patient is to his 3rd and lives in [place]. He has 13 children, youngest is 3. He is retired, worked for the [employer]. He designates his , Nicole, as his surrogate decision maker and he wishes to be a full code. Smoking packs per day: 2 Smoking cigarettes per day: 40.0 Years smoked: 50 Smoking pack-years: 100.00 Smoking status: Former smoker Tobacco type: cigarettes Smoking end date: 10/29/24 Alcohol intake: never Substance use: never Substance use type: does not use Last use: oct 29, 2024 Do You Feel Safe in your Home?: Yes Lack of Transportation: No Lack of Food: Never True Current Housing: I Have Housing Concerned About Future Housing: No Difficulty Paying Gas/Electric Bills: No Difficulty Paying for Meds: No Currently Unemployed: No Education: Bachelor's Degree Difficulty w/ Childcare or Family Care: No Living arrangements: with family Additional living arrangements comments: Occupation/Education: retired Gender identity (if verbalized by the patient): Male Sexual Orientation (if Verbalized by the Patient): Straight or Heterosexual Spiritual care concerns: No Agree to blood products: Yes Meds Home Medications and Allergies Home Medications ?Medication ?Instructions ?Recorded ?Confirmed ?Type phenelzine 15 mg tablet 15 mg PO TID #270 tabs 01/21/25 04/30/25 Rx clotrimazole 10 mg alia 10 mg mucous membrane TID #30 tabs 03/18/25 04/30/25 Rx fluticasone fur. 100 mcg-umeclid 1 inh inhalation Q24H 03/18/25 04/30/25 History 62.5 mcg-vilant 25 mcg inhalat.powder (Trelegy Ellipta) ipratropium 0.5 mg-albuterol 3 mg 3 ml inhalation Q6H PRN shortness 03/18/25 04/30/25 Rx (2.5 mg base)/3 mL nebulization of breath or wheezing #180 mL soln lorazepam 2 mg tablet 2 mg PO BID PRN Anxiety #60 tabs 04/01/25 04/30/25 Rx albuterol sulfate 0.63 mg/3 mL 0.63 mg continuous nebulization 04/07/25 04/30/25 History solution for nebulization Q6-8H PRN bronchospasm lactose-reduced food with fiber 1 ea feeding tube QID #30,000 mL 04/08/25 04/30/25 Rx 0.06 gram-1.5 kcal/mL oral liquid (Jevity 1.5 Gordo) Brenden Liquid Protein 30 ml BYMOUTH 2XD #60 packets 04/16/25 04/30/25 Rx midodrine 5 mg tablet 5 mg PO TID #90 tabs 04/22/25 04/30/25 Rx Allergies Allergy/AdvReac Type Severity Reaction Status Date / Time No Known Allergies Allergy Verified 04/08/25 14:58 Vital Signs Vital Signs - 24 hr 04/29/25 21:35 04/29/25 21:49 04/29/25 21:49 Temperature 98.2 F Pulse Rate 105 H 104 H Respiratory Rate 21 H Blood Pressure 102/66 Pulse Oximetry 95 100 Oxygen Delivery Non-Rebreather Mask Non-Rebreather Mask Oxygen Flow Rate 10 10 Fraction of Inspired Oxygen 04/29/25 22:16 04/29/25 22:31 04/29/25 22:46 Temperature Pulse Rate 102 H 104 H Respiratory Rate 21 H 23 H 19 Blood Pressure 106/72 100/70 112/57 L Pulse Oximetry 100 97 100 Oxygen Delivery Oxygen Flow Rate Fraction of Inspired Oxygen 04/29/25 23:31 04/30/25 00:18 04/30/25 00:53 Temperature Pulse Rate 100 122 H 130 H Respiratory Rate 18 19 25 H Blood Pressure 111/86 138/85 Pulse Oximetry 90 91 Oxygen Delivery Oxygen Flow Rate Fraction of Inspired Oxygen 04/30/25 01:01 04/30/25 01:18 04/30/25 01:31 Temperature Pulse Rate 127 H 120 H 129 H Respiratory Rate 24 H 22 H 23 H Blood Pressure 135/83 126/104 H Pulse Oximetry 89 L 85 L Oxygen Delivery Oxygen Flow Rate Fraction of Inspired Oxygen 04/30/25 02:01 04/30/25 02:10 04/30/25 02:16 Temperature Pulse Rate 122 H 119 H 119 H Respiratory Rate 27 H 26 H 26 H Blood Pressure 105/59 L Pulse Oximetry 90 92 Oxygen Delivery High Flow Therapy with Na Oxygen Flow Rate 45 Fraction of Inspired Oxygen 60 04/30/25 02:30 04/30/25 02:40 04/30/25 02:46 Temperature Pulse Rate 120 H 128 H Respiratory Rate 26 H 24 H 18 Blood Pressure 120/62 Pulse Oximetry 93 89 L Oxygen Delivery High Flow Therapy with Na Oxygen Flow Rate 40 Fraction of Inspired Oxygen 50 04/30/25 03:44 04/30/25 04:00 04/30/25 04:00 Temperature 100.1 F H Pulse Rate 59 L 100 101 H Respiratory Rate 24 H Blood Pressure 93/43 L Pulse Oximetry 92 Oxygen Delivery Oxygen Flow Rate Fraction of Inspired Oxygen 04/30/25 04:30 04/30/25 06:00 04/30/25 08:11 Temperature 98.4 F Pulse Rate 100 106 H 101 H Respiratory Rate 24 H 20 Blood Pressure 99/50 L Pulse Oximetry 92 99 Oxygen Delivery High Flow Therapy with Na Oxygen Flow Rate 40 Fraction of Inspired Oxygen 50 04/30/25 08:15 04/30/25 08:16 04/30/25 08:25 Temperature Pulse Rate 102 H 102 H 98 Respiratory Rate 24 H 24 H 24 H Blood Pressure Pulse Oximetry 97 Oxygen Delivery High Flow Therapy with Na Oxygen Flow Rate 40 Fraction of Inspired Oxygen 45 04/30/25 11:59 04/30/25 13:24 04/30/25 13:25 Temperature 97.0 F L Pulse Rate 97 100 Respiratory Rate 22 H 26 H Blood Pressure 95/51 L Pulse Oximetry 96 94 Oxygen Delivery Oxygen Flow Rate 35 Fraction of Inspired Oxygen 40 Exam Const: General: comfortable and no acute distress Other: A&O x3 HENMT: Other: Poor dentition, dry mucous membranes Eyes: Pupils: Equal, round and reactive pupils present Neck: Neck: supple Resp: Other: Decreased air intake Cardio: Rate: tachycardic Rhythm: regular rhythm GI: Inspection: non-distended GI Palp: Yes Soft to palpation and No Tenderness to palpation present (GI) Other: Erythema surrounding the orifice of the PEG tube. Active purulent drainage. Neuro: Motor exam (neuro): 5/5 motor strength present throughout Extrem: General: no edema H&P: Results Labs Labs: Short CBC 04/29/25 04/30/25 Range/Units 21:52 06:28 WBC 7.3 11.7 H (4.5-10.0) K/mm3 Hgb 7.8 L 7.0 L (14.0-18.0) g/dL Hct 26.6 L 23.3 L (42.0-52.0) % Plt Count 401 H 308 (150-375) k/mm3 BMP 04/29/25 04/30/25 21:52 06:28 Sodium 133 L 132 L Potassium 5.7 H 3.7 Chloride 88 L 92 L Carbon Dioxide 37 H 36 H BUN 72 H D 53 H D Creatinine 0.72 0.53 L Glucose 148 H 151 H Calcium 9.3 8.4 Cardiac Enzymes 04/29/25 Range/Units 21:52 Troponin I < 0.012 (0.000-0.034) ng/mL Liver Function 04/29/25 04/30/25 Range/Units 21:52 06:28 Total Bilirubin 0.3 (0.2-1.3) mg/dL AST 27 (17-59) U/L ALT 16 (6-50) U/L Alkaline Phosphatase 115 (38-126) U/L Albumin 3.6 3.2 L (3.5-5.1) g/dL Urine 04/30/25 Range/Units 01:20 Urine Color Yellow (Yellow) Urine Appearance Clear (Clear) Urine pH 7.0 (5.0-9.0) Ur Specific Clayton 1.017 (1.001-1.035) Urine Protein 1+ H (Negative) mg/dL Urine Glucose (UA) Negative (Negative) mg/dL Assessment and Plan Assessment and plan (1) Sepsis without septic shock: Code(s): A41.9 - Sepsis, unspecified organism Status: Acute Assessment and Plan: With end-organ damage as evidence by minus of breath, hypoxia, low blood pressure responsive to IV fluids, tachycardia. WBC 1.3 on admission, rising to 11.7 on 05/17. Continue to trend. 04/29/2025 blood culture, pending Ordered sputum culture Treat pneumonia and cellulitis (2) Cellulitis: Code(s): L03.90 - Cellulitis, unspecified Status: Acute Assessment and Plan: Erythema and purulent drainage from the PEG tube orifice. Abdomen soft, nontender otherwise. Cefepime started on 04/30/2025 (3) Pneumonia: Code(s): J18.9 - Pneumonia, unspecified organism Status: Acute Assessment and Plan: Shortness of breath, cough with productive sputum, hypoxia on admission. Receive 1 dose of vancomycin. MRSA nares negative. Chronic dysphagia due to previous tonsillectomy related to cancer. Continue chest physiotherapy Continue cefepime and azithromycin Sputum culture. Legionella pneumococcal and mycoplasma studies. (4) COPD exacerbation: Code(s): J44.1 - Chronic obstructive pulmonary disease with (acute) exacerbation Status: Acute Assessment and Plan: ABG on admission with hypercapnia. Continue nebulizer treatments, Solu-Medrol. (5) Acute respiratory failure with hypoxia and hypercapnia: Code(s): J96.01 - Acute respiratory failure with hypoxia; J96.02 - Acute respiratory jarret lure with hypercapnia Status: Acute Assessment and Plan: Placed on non-rebreather on presentation in the ER, now on high-flow nasal cannula. Patient feeling much better. Titrate per protocol. Quad viral screen negative (6) Anemia: Code(s): D64.9 - Anemia, unspecified Status: Acute Assessment and Plan: Hemoglobin 7.8 on admission, down to 7.0. Continue to trend hemoglobin. Check stool occult. Patient denies dark stool, bright red blood per rectum. 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 Ponec, GERD, hyperlipidemia, COPD, prior tobacco abuse quit 10/2024, depression with anxiety, arthritis presents to [facility] ER on 04/30/2025 as he was having shortness of breath. In the ER he was afebrile with tachypnea and tachycardia and was placed on a non-rebreather, later changed to a high-flow nasal cannula. Given DuoNeb treatment. He had mild lactic acid elevation and was given 2 L fluid bolus. It appears at some point he was given Lasix although. Hyperkalemia, given calcium gluconate and high-dose albuterol, dextrose and insulin. CRP elevated, BNP elevated. Started on vancomycin ceftriaxone and azithromycin. Given Solu-Medrol 125 mg IV x1. Upon repeat evaluation he is on high-flow nasal cannula, does not complain of any symptoms moment, endorses a new cough and while in the room coughing muddy brown/yellow sputum. He also has drainage from his PEG orifice. ----- Reportedly had some falls at home. Cervical spine CT without acute fractures. Significant degenerative disease with chronic compression of T2 and T3. Head CT large amount of motion artifact but no acute findings revealed. 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 Lactated Ringer's at 100 cc/hour. PT OT evaluations. SCDs only. Dietitian consulted, continue tube feeds. Hospitalist MIPS Advance Care Plan I have confirmed that the patient's Advanced Care Plan is present, code status is documented, or surrogate decision maker is listed in patient medical record.: Yes Medication Reconciliation I have utilized all available resources to obtain, update and review the patients current medications (includes all prescriptions, OTC, herbals, cannabis, and nutritional supplements).: Yes
--- NOTE | 2025-04-30 16:34 | PHAR ---
home med verified phenelzine 15mg tid
[2025-04-30] MEDS: LACTATED RINGERS 1,000 ML 100 ML IV CONT (18:16)
[2025-04-30] MEDS: PHENELZINE 15 MG 15 EACH PO (18:18)
[2025-04-30] MEDS: LORazepam (*CRX) 1 MG TABLET 2 MG PO (18:18)
[2025-04-30 18:20] LABS: Hematocrit 24.5 % (42.0-52.0); Hemoglobin 7.3 g/dL (14.0-18.0)
[2025-05-01] VITALS (28 sets, daily range): BP systolic 98–126; BP diastolic 55–79; PULSE 83–98; RESP 16–24; TEMP 36.4–36.6; O2SAT 91–97
[2025-05-01] MEDS: CEFEPIME 2 GM in SODIUM CHLORIDE 0.9% IV 50 ML 100 ML IVPB ×3 (01:38→17:06)
[2025-05-01] MEDS: IPRATROPIUM 0.5 MG/ALBUTEROL SULFATE 2.5 MG AMPUL.NEB 3 ML INHALATION ×5 (02:27→20:44)
[2025-05-01] MEDS: LACTATED RINGERS 1,000 ML 100 ML IV CONT ×2 (04:16→17:20)
[2025-05-01] MEDS: CENTRAL LINE FLUSH 10 ML IV PUSH ×3 (05:52→22:01)
[2025-05-01 06:16] LABS: Hematocrit 23.4 % (42.0-52.0); Hemoglobin 7.0 g/dL (14.0-18.0); Immature Granulocyte Percent A 0.3 % (0-0.5); Lymphocytes Absolute Auto 0.31 K/mm3 (0.9-3.2); Mean Corpuscular HGB Conc 29.9 g/dl (32-36); Mean Corpuscular Hemoglobin 28.7 pg (26-34); Mean Corpuscular Volume 95.9 fl (80-100); Nucleated Red Blood Cells Absolute Auto 0.000 K/mm3 (0.0-0.012); Nucleated Red Blood Cells Perc 0.0 % (0.0-0.2); Platelet Count Result 311 k/mm3 (150-375); Red Blood Count 2.44 M/mm3 (4.6-6.20); White Blood Count 11.5 K/mm3 (4.5-10.0)
[2025-05-01 06:39] LABS: Anion Gap 1 mmol/L (4-12); Blood Urea Nitrogen 34 mg/dL (9-20); Calcium 8.7 mg/dL (8.4-10.2); Carbon Dioxide 36 mmol/L (22-30); Chloride 98 mmol/L (98-107); Estimated CRCL calculation 110 ml/min; Estimated Glomerular Filt Rate > 60; Glucose 149 mg/dL (65-110); Magnesium 2.2 mg/dL (1.6-2.3); Potassium 3.7 mmol/L (3.4-5.0); Sodium 135 mmol/L (137-145)
[2025-05-01 06:45] LABS: Anisocytosis 2+; Hypochromasia 2+; Schistocytes None Seen
[2025-05-01 06:55] LABS: Procalcitonin 1.8 ng/mL
[2025-05-01] MEDS: LORazepam (*CRX) 1 MG TABLET 2 MG PO ×2 (08:41→17:19)
[2025-05-01] MEDS: CLOTRIMAZOLE 10 MG TROC MUCOUS MEM ×3 (08:41→17:04)
[2025-05-01] MEDS: MIDODRINE HCL 2.5 MG TABLET 5 MG PO ×3 (08:44→17:04)
[2025-05-01] MEDS: PHENELZINE 15 MG 15 EACH PO ×3 (08:45→17:06)
[2025-05-01] MEDS: ACETAMINOPHEN 325 MG TABLET 650 MG PO ×3 (08:56→17:04)
[2025-05-01] MEDS: FLUTICASONE/UMECLIDIN/VILANTER 100-62.5-25 MCG ELLIPTA 1 PUFF INHALATION (08:59)
[2025-05-01 12:35] LABS: Hematocrit 23.2 % (42.0-52.0); Hemoglobin 7.0 g/dL (14.0-18.0)
--- NOTE | 2025-05-01 17:54 | P.PNIM_ITS ---
Progress Note: A&P Assessment and Plan (1) Sepsis without septic shock: Code(s): A41.9 - Sepsis, unspecified organism Status: Acute Assessment and Plan: With end-organ damage as evidence by minus of breath, hypoxia, low blood pressure responsive to IV fluids, tachycardia. WBC 1.3 on admission, rising to 11.7 on 05/17. Stable on 05/01/2025 Resume [facility] midodrine 04/29/2025 blood culture, pending Follow-up sputum culture Treat pneumonia and cellulitis (2) Cellulitis: Code(s): L03.90 - Cellulitis, unspecified Status: Acute Assessment and Plan: Erythema and purulent drainage from the PEG tube orifice. Abdomen soft, nontender otherwise. Cefepime started on 04/30/2025 05/01/2025: Erythema improving (3) Pneumonia: Code(s): J18.9 - Pneumonia, unspecified organism Status: Acute Assessment and Plan: Shortness of breath, cough with productive sputum, hypoxia on admission. Receive 1 dose of vancomycin. MRSA nares negative. Chronic dysphagia due to previous tonsillectomy related to cancer. Continue chest physiotherapy Continue cefepime and azithromycin Sputum culture. Legionella pneumococcal and mycoplasma studies. Resume [facility] [facility] clotrimazole troches (4) Acute and chronic respiratory failure with hypercapnia: Code(s): J96.22 - Acute and chronic respiratory failure with hypercapnia Status: Acute Assessment and Plan: Placed on non-rebreather on presentation in the ER, now on high-flow nasal cannula. Patient feeling much better. Titrate per protocol. Quad viral screen negative (5) Anemia: Code(s): D64.9 - Anemia, unspecified Status: Acute Assessment and Plan: Hemoglobin 7.8 on admission, down to 7.0. 05/01/2025: Hemoglobin stable at 7.0. Patient was to recheck at 8 p.m.. He is amenable to transfusion for hemoglobin less than 7. Check stool occult. Patient denies dark stool, bright red blood per rectum. (6) COPD exacerbation: Code(s): J44.1 - Chronic obstructive pulmonary disease with (acute) exacerbation Status: Acute Assessment and Plan: ABG on admission with hypercapnia. Continue nebulizer treatments, Solu-Medrol. 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 Ponce, GERD, hyperlipidemia, COPD, prior tobacco abuse quit 10/2024, depression with anxiety, arthritis presents to [facility] ER on 04/30/2025 as he was having shortness of breath. In the ER he was afebrile with tachypnea and tachycardia and was placed on a non-rebreather, later changed to a high-flow nasal cannula. Given DuoNeb treatment. He had mild lactic acid elevation and was given 2 L fluid bolus. It appears at some point he was given Lasix although. Hyperkalemia, given calcium gluconate and high-dose albuterol, dextrose and in sulin. CRP elevated, BNP elevated. Started on vancomycin ceftriaxone and azithromycin. Given Solu-Medrol 125 mg IV x1. Upon repeat evaluation he is on high-flow nasal cannula, does not complain of any symptoms moment, endorses a new cough and while in the room coughing muddy brown/yellow sputum. He also has drainage from his PEG orifice. ----- Reportedly had some falls at home. Cervical spine CT without acute fractures. Significant degenerative disease with chronic compression of T2 and T3. Head CT large amount of motion artifact but no acute findings revealed. Patient wishes to be DNR. Lactated Ringer's at 100 cc/hour. PT OT evaluations. SCDs only. Dietitian consulted, continue tube feeds. Subjective Date/time seen: 05/01/25 17:54 Interval history: No major acute overnight events. Patient has no complaints. Review of Systems Review of Systems: All systems reviewed & are unremarkable except as noted in HPI and below (Subjective) Exam Const: General: comfortable and no acute distress Other: A&O x3 HENMT: Other: Poor dentition, dry mucous membranes Eyes: Pupils: Equal, round and reactive pupils present Neck: Neck: supple Resp: Other: Decreased air intake Cardio: Rate: tachycardic Rhythm: regular rhythm GI: Inspection: non-distended GI Palp: Yes Soft to palpation and No Tenderness to palpation present (GI) Other: Erythema surrounding the orifice of the PEG tube, improved. Neuro: Motor exam (neuro): 5/5 motor strength present throughout Extrem: General: no edema Objective Data Vital Signs Vital Signs: Vital Signs - 24 hr 04/30/25 18:00 04/30/25 20:00 04/30/25 20:32 Temperature Pulse Rate 96 90 98 Respiratory Rate 18 Blood Pressure Pulse Oximetry 95 Oxygen Delivery High Flow Therapy with Na Oxygen Flow Rate 35 Fraction of Inspired Oxygen 40 04/30/25 20:32 04/30/25 20:45 04/30/25 20:52 Temperature 98 F Pulse Rate 98 96 90 Respiratory Rate 18 18 20 Blood Pressure 103/59 L Pulse Oximetry 95 Oxygen Delivery Oxygen Flow Rate Fraction of Inspired Oxygen 04/30/25 22:00 04/30/25 23:37 05/01/25 00:00 Temperature 97.9 F Pulse Rate 93 90 88 Respiratory Rate 24 H Blood Pressure 97/69 L Pulse Oximetry 93 Oxygen Delivery Oxygen Flow Rate Fraction of Inspired Oxygen 05/01/25 02:00 05/01/25 02:27 05/01/25 02:27 Temperature Pulse Rate 92 90 90 Respiratory Rate 20 20 Blood Pressure Pulse Oximetry 92 Oxygen Delivery High Flow Therapy with Na Oxygen Flow Rate 35 Fraction of Inspired Oxygen 40 05/01/25 02:45 05/01/25 03:54 05/01/25 04:00 Temperature 97.8 F Pulse Rate 94 88 90 Respiratory Rate 20 24 H Blood Pressure 98/55 L Pulse Oximetry 91 Oxygen Delivery Oxygen Flow Rate Fraction of Inspired Oxygen 05/01/25 05:41 05/01/25 06:00 05/01/25 07:59 Temperature 97.8 F Pulse Rate 89 96 94 Respiratory Rate 22 H Blood Pressure 108/61 Pulse Oximetry 92 97 Oxygen Delivery High Flow Therapy with Na Oxygen Flow Rate 35 Fraction of Inspired Oxygen 45 05/01/25 08:00 05/01/25 09:02 05/01/25 09:03 Temperature Pulse Rate 97 97 Respiratory Rate 20 Blood Pressure Pulse Oximetry 92 92 Oxygen Delivery High Flow Therapy with Na High Flow Therapy with Na Oxygen Flow Rate 35 35 Fraction of Inspired Oxygen 45 45 05/01/25 09:09 05/01/25 10:00 05/01/25 11:54 Temperature 97.9 F Pulse Rate 97 93 95 Respiratory Rate 18 20 Blood Pressure 105/62 Pulse Oximetry 93 Oxygen Delivery Oxygen Flow Rate Fraction of Inspired Oxygen 05/01/25 12:00 05/01/25 12:00 05/01/25 13:13 Temperature Pulse Rate 92 98 Respiratory Rate 16 Blood Pressure Pulse Oximetry 96 Oxygen Delivery High Flow Therapy with Na Oxygen Flow Rate 35 Fraction of Inspired Oxygen 45 05/01/25 13:14 05/01/25 13:18 05/01/25 14:00 Temperature Pulse Rate 98 95 94 Respiratory Rate 16 Blood Pressure Pulse Oximetry 93 Oxygen Delivery High Flow Therapy with Na Oxygen Flow Rate 35 Fraction of Inspired Oxygen 45 05/01/25 16:34 Temperature 97.6 F Pulse Rate 93 Respiratory Rate 20 Blood Pressure 119/72 Pulse Oximetry 97 Oxygen Delivery Oxygen Flow Rate Fraction of Inspired Oxygen Intake/Output Intake/Output: Intake & Output 04/28/25 04/29/25 04/30/25 05/01/25 23:59 23:59 23:59 23:59 Intake Total 900 2100 Output Total 1975 500 Balance -1075 1600 Meds/Results Medications: Active Medications Generic Name Dose Route Start Last Admin Trade Name Freq PRN Reason Stop Dose Admin Acetaminophen 650 mg 04/30/25 01:42 05/01/25 17:04 Acetaminophen 325 Mg Tablet PO 650 mg Q4H PRN Administration Mild Pain (1-3) or Fever Albuterol/Ipratropium 3 ml 04/30/25 08:00 05/01/25 13:13 Ipratropium 0.5 Mg/Albuterol Sulfate 2.5 Mg Ampul.Neb 3 Ml INHALATION 3 ml Q6HRT VAMSI Administration Clotrimazole 10 mg 04/30/25 09:00 05/01/25 17:04 Clotrimazole 10 Mg Troc MUCOUS MEM 10 mg TID VAMSI Administration Fluticasone/Umeclidinium/Vilanterol 1 puff 04/30/25 08:00 05/01/25 08:59 Fluticasone/Umeclidin/Vilanter 100-62.5-25 Mcg Ellipta INHALATION 1 puff DAILYRT VAMSI Administration Heparin Sodium (Beef Lung) 50 units 04/30/25 09:00 05/01/25 08:56 Heparin Flush 50 Units/5 Ml Syringe IV PUSH 50 units QAM VAMSI Administration Heparin Sodium (Beef Lung) 50 units 04/30/25 04:13 Heparin Flush 50 Units/5 Ml Syringe IV PUSH PRN PRN after intermittent infusion Heparin Sodium (Beef Lung) 50 units 04/30/25 04:13 Heparin Flush 50 Units/5 Ml Syringe IV PUSH PRN PRN after blood draws Heparin Sodium (Porcine) 500 units 04/30/25 04:13 Heparin Sodium Lock Flush 500 Units/5 Ml Syringe IV PUSH PRN PRN see comments below Cefepime HCl 2 gm/ Sodium 50 mls @ 100 mls/hr 04/30/25 10:00 05/01/25 17:06 Chloride IVPB 100 mls/hr Q8H VAMSI Administration Azithromycin 500 mg/ Sodium 250 mls @ 250 mls/hr 04/30/25 21:00 04/30/25 21:15 Chloride IVPB 05/03/25 21:59 Infused Q24H VAMSI Infusion Lactated Ringer's 1,000 mls @ 100 mls/hr 04/30/25 16:25 05/01/25 17:20 Lr - Lactated Ringers Iv IV CONT 100 mls/hr .Q10H VAMSI Administration Lorazepam 2 mg 04/30/25 14:37 05/01/25 17:19 Lorazepam (*Crx) 1 Mg Tablet PO 2 mg BID PRN Administration Anxiety Methylprednisolone Sodium Succinate 60 mg 04/30/25 22:00 05/01/25 12:46 Methylprednisolone Sod Succ 125 Mg Vial IV PUSH 60 mg Q8HR VAMSI Administration Midodrine 5 mg 04/30/25 09:00 05/01/25 17:04 Midodrine Hcl 2.5 Mg Tablet PO 5 mg TID VAMSI Administration Morphine Sulfate 2 mg 04/30/25 01:42 Morphine Sulfate (*Crx) 2 Mg/Ml Inj IV PUSH Q2H PRN Pain Rated 7-10 Home Med (Phenelzine 15 mg 04/30/25 17:00 05/01/25 17:06 15 Mg Tablet) PO 05/30/25 16:59 15 mg TID VAMSI Administration Ondansetron HCl 4 mg 04/30/25 01:42 Ondansetron Inj 4 Mg/2 Ml Vial IV PUSH Q4H PRN Nausea Sodium Chloride 10 ml 04/30/25 06:00 05/01/25 12:46 Central Line Flush IV PUSH 10 ml Q8HR VAMSI Administration Radiology Results: ITS Impressions Chest X-Ray 04/29/25 22:42 IMPRESSION: Chronic interstitial change with a small left-sided pleural effusion and adjacent compressive atelectasis. Head CT 04/30/25 00:16 Impression: Examination is markedly limited by a significant amount of motion artifact. No large acute intracranial hemorrhage or suspicious significant mass effect. Chest CTA 04/30/25 00:19 IMPRESSION: No pulmonary embolus. No thoracic aortic dissection. Post radiation change within the right upper lobe with increase in size of the cavitary consolidation. Left apical scarring. Interval development of patchy groundglass opacification of the bilateral lung bases. Severe panlobular emphysematous disease redemonstrated. Tree-in-bud opacification of right upper lobe, an interval change from prior. Interval increase in size of an irregular focus of decreased attenuation within segment 7 of the liver when compared with previous study dated 03/14/2025 for which a metastatic lesion is suspected. If needed, this area is accessible via percutaneous biopsy, if not already performed. Cervical Spine CT 04/30/25 00:39 Impression: Significant degenerative disease, without acute significantly displaced fractures, as detailed above Labs Labs: Laboratory Results - last 24 hr 04/30/25 05/01/25 05/01/25 18:11 05:56 12:24 WBC 11.5 H RBC 2.44 L Hgb 7.3 L 7.0 L 7.0 L Hct 24.5 L 23.4 L 23.2 L MCV 95.9 MCH 28.7 MCHC 29.9 L RDW 19.2 H Plt Count 311 MPV 9.3 Immature Gran % (Auto) 0.3 Neut % (Auto) 94.9 H Lymph % (Auto) 2.7 L [place] % (Auto) 1.9 L Eos % (Auto) 0.0 Baso % (Auto) 0.2 Lymph # (Auto) 0.31 L [place] # (Auto) 0.2 Eos # (Auto) 0.0 Baso # (Auto) 0.0 Abs Immat Gran (auto) 0.04 H Absolute Neuts (auto) 11.0 H Absolute Nucleated RBC 0.000 Band Neutrophils % Not Reportable Nucleated RBC % 0.0 Platelet Estimate Adequate Hypochromasia 2+ Anisocytosis 2+ Schistocytes None seen Sodium 135 L Potassium 3.7 Chloride 98 Carbon Dioxide 36 H Anion Gap 1 L BUN 34 H D Creatinine 0.41 L Estim Creat Clear Calc 110 Estimated GFR > 60 Glucose 149 H Lactic Acid 1.2 Calcium 8.7 Magnesium 2.2 Procalcitonin 1.8
[2025-05-01] MEDS: AZITHROMYCIN IV 500 MG in SODIUM CHLORIDE 0.9% IV 250 ML IVPB (20:29)
[2025-05-01 20:40] LABS: Hematocrit 23.9 % (42.0-52.0); Hemoglobin 7.2 g/dL (14.0-18.0)
[2025-05-02] VITALS (23 sets, daily range): BP systolic 114–132; BP diastolic 63–83; PULSE 80–110; RESP 16–24; TEMP 36.1–36.7; O2SAT 80–98
[2025-05-02] MEDS: CEFEPIME 2 GM in SODIUM CHLORIDE 0.9% IV 50 ML 100 ML IVPB ×3 (01:55→17:21)
[2025-05-02] MEDS: IPRATROPIUM 0.5 MG/ALBUTEROL SULFATE 2.5 MG AMPUL.NEB 3 ML INHALATION ×4 (01:59→20:18)
[2025-05-02] MEDS: LACTATED RINGERS 1,000 ML 100 ML IV CONT ×2 (02:55→14:15)
[2025-05-02] MEDS: CENTRAL LINE FLUSH 10 ML IV PUSH ×3 (06:17→21:33)
[2025-05-02] MEDS: ACETAMINOPHEN 325 MG TABLET 650 MG PO ×3 (08:49→17:10)
[2025-05-02] MEDS: LORazepam (*CRX) 1 MG TABLET 2 MG PO ×2 (08:49→17:10)
[2025-05-02] MEDS: MIDODRINE HCL 2.5 MG TABLET 5 MG PO ×3 (08:49→17:10)
[2025-05-02] MEDS: PHENELZINE 15 MG 15 EACH PO ×3 (08:50→17:10)
[2025-05-02] MEDS: CLOTRIMAZOLE 10 MG TROC MUCOUS MEM ×3 (08:50→17:10)
[2025-05-02] MEDS: FLUTICASONE/UMECLIDIN/VILANTER 100-62.5-25 MCG ELLIPTA 1 PUFF INHALATION (08:52)
[2025-05-02 10:15] LABS: Hematocrit 27.0 % (42.0-52.0); Hemoglobin 7.9 g/dL (14.0-18.0); Immature Granulocyte Percent A 0.7 % (0-0.5); Lymphocytes Absolute Auto 0.40 K/mm3 (0.9-3.2); Mean Corpuscular HGB Conc 29.3 g/dl (32-36); Mean Corpuscular Hemoglobin 28.0 pg (26-34); Mean Corpuscular Volume 95.7 fl (80-100); Nucleated Red Blood Cells Absolute Auto 0.000 K/mm3 (0.0-0.012); Nucleated Red Blood Cells Perc 0.0 % (0.0-0.2); Platelet Count Result 346 k/mm3 (150-375); Red Blood Count 2.82 M/mm3 (4.6-6.20); White Blood Count 10.8 K/mm3 (4.5-10.0)
[2025-05-02 10:27] LABS: Anion Gap 5 mmol/L (4-12); Blood Urea Nitrogen 27 mg/dL (9-20); Calcium 8.8 mg/dL (8.4-10.2); Carbon Dioxide 32 mmol/L (22-30); Chloride 100 mmol/L (98-107); Estimated CRCL calculation 105 ml/min; Estimated Glomerular Filt Rate > 60; Glucose 179 mg/dL (65-110); Magnesium 2.0 mg/dL (1.6-2.3); Potassium 3.6 mmol/L (3.4-5.0); Sodium 137 mmol/L (137-145)
[2025-05-02 10:34] LABS: Anisocytosis 2+
[2025-05-02 10:35] LABS: Hypochromasia 1+; Polychromasia 1+
[2025-05-02 10:36] LABS: Schistocytes None Seen
--- NOTE | 2025-05-02 15:06 | PM.IMPN ---
Progress Note: A&P Assessment and Plan (1) Sepsis without septic shock: Code(s): A41.9 - Sepsis, unspecified organism Status: Acute Assessment and Plan: With end-organ damage as evidence by minus of breath, hypoxia, low blood pressure responsive to IV fluids, tachycardia. WBC 1.3 on admission, rising to 11.7 on 05/17. Stable on 05/01/2025 Resume [employer] [facility] midodrine 04/29/2025 blood culture, pending Follow-up sputum culture 05/02/2025: Blood pressure improved, continue midodrine. Discontinue fluids. Treat pneumonia and cellulitis (2) Cellulitis: Code(s): L03.90 - Cellulitis, unspecified Status: Acute Assessment and Plan: Erythema and purulent drainage from the PEG tube orifice. Abdomen soft, nontender otherwise. Cefepime started on 04/30/2025 05/01/2025: Erythema improving (3) Pneumonia: Code(s): J18.9 - Pneumonia, unspecified organism Status: Acute Assessment and Plan: Shortness of breath, cough with productive sputum, hypoxia on admission. Receive 1 dose of vancomycin. MRSA nares negative. Chronic dysphagia due to previous tonsillectomy related to cancer. Continue chest physiotherapy Continue cefepime and azithromycin Sputum culture. Legionella pneumococcal and mycoplasma studies. Resume [facility] clotrimazole troches (4) Acute and chronic respiratory failure with hypercapnia: Code(s): J96.22 - Acute and chronic respiratory failure with hypercapnia Status: Acute Assessment and Plan: Placed on non-rebreather on presentation in the ER, now on high-flow nasal cannula. Patient feeling much better. Titrate per protocol. Quad viral screen negative (5) Anemia: Code(s): D64.9 - Anemia, unspecified Status: Acute Assessment and Plan: Hemoglobin 7.8 on admission, down to 7.0. 05/01/2025: Hemoglobin stable at 7.0. Patient was to recheck at 8 p.m.. He is amenable to transfusion for hemoglobin less than 7. 05/02/2025: Hemoglobin stable. Check stool occult. Patient denies dark stool, bright red blood per rectum. (6) COPD exacerbation: Code(s): J44.1 - Chronic obstructive pulmonary disease with (acute) exacerbation Status: Acute Assessment and Plan: ABG on admission with hypercapnia. Continue nebulizer treatments, Solu-Medrol. 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 Ponce, GERD, hyperlipidemia, COPD, prior tobacco abuse quit 10/2024, depression with anxiety, arthritis presents to [facility] ER on 04/30/2025 as he was having shortness of breath. In the ER he was afebrile with tachypnea and tachycardia and was placed on a non-rebreather, later changed to a high-flow nasal cannula. Given DuoNeb treatment. He had mild lactic acid elevation and was given 2 L fluid bolus. It appears at some point he was given Lasix although. Hyperkalemia, given calcium gluconate and high-dose albuterol, dextrose and insulin. CRP elevated, BNP elevated. Started on vancomycin ceftriaxone and azithromycin. Given Solu-Medrol 125 mg IV x1. Upon repeat evaluation he is on high-flow nasal cannula, does not complain of any symptoms moment, endorses a new cough and while in the room coughing muddy brown/yellow sputum. He also has drainage from his PEG orifice. ----- Reportedly had some falls at home. Cervical spine CT without acute fractures. Significant degenerative disease with chronic compression of T2 and T3. Head CT large amount of motion artifact but no acute findings revealed. Patient wishes to be DNR. Saline lock IV, ambulate with assistance, PT OT evaluations. SCDs only. Dietitian consulted, continue tube feeds. Subjective Date/time seen: 05/02/25 15:06 Interval history: No major acute overnight events. Patient has no complaints. He feels his cough is the same, has some productive sputum. Review of Systems Review of Systems: All systems reviewed & are unremarkable except as noted in HPI and below (Subjective) Exam Const: General: comfortable and no acute distress Other: A&O x3 HENMT: Other: Poor dentition, dry mucous membranes Eyes: Pupils: Equal, round and reactive pupils present Neck: Neck: supple Resp: Other: Decreased air intake Cardio: Rate: tachycardic Rhythm: regular rhythm GI: Inspection: non-distended GI Palp: Yes Soft to palpation and No Tenderness to palpation present (GI) Other: Erythema surrounding the orifice of the PEG tube, improved. Neuro: Motor exam (neuro): 5/5 motor strength present throughout Extrem: General: no edema Objective Data Vital Signs Vital Signs: Vital Signs - 24 hr 05/01/25 16:00 05/01/25 16:00 05/01/25 16:34 Temperature 97.6 F Pulse Rate 92 93 Respiratory Rate 20 Blood Pressure 119/72 Pulse Oximetry 97 97 Oxygen Delivery High Flow Therapy with Na Oxygen Flow Rate 35 Fraction of Inspired Oxygen 45 05/01/25 18:00 05/01/25 20:00 05/01/25 20:00 Temperature 97.7 F Pulse Rate 95 89 83 Respiratory Rate 18 Blood Pressure 126/79 Pulse Oximetry 96 Oxygen Delivery Oxygen Flow Rate Fraction of Inspired Oxygen 05/01/25 20:45 05/01/25 20:46 05/01/25 20:52 Temperature Pulse Rate 89 92 Respiratory Rate 16 16 Blood Pressure Pulse Oximetry 96 Oxygen Delivery High Flow Therapy with Na Oxygen Flow Rate 35 Fraction of Inspired Oxygen 45 05/01/25 22:00 05/02/25 00:00 05/02/25 00:00 Temperature 98.0 F Pulse Rate 94 95 84 Respiratory Rate 22 H Blood Pressure 114/72 Pulse Oximetry 91 Oxygen Delivery Oxygen Flow Rate Fraction of Inspired Oxygen 05/02/25 02:00 05/02/25 02:01 05/02/25 02:09 Temperature Pulse Rate 96 93 96 Respiratory Rate 16 16 Blood Pressure Pulse Oximetry Oxygen Delivery Oxygen Flow Rate Fraction of Inspired Oxygen 05/02/25 04:00 05/02/25 04:00 05/02/25 06:00 Temperature 97.9 F Pulse Rate 90 90 87 Respiratory Rate 20 Blood Pressure 122/63 Pulse Oximetry 90 Oxygen Delivery Oxygen Flow Rate Fraction of Inspired Oxygen 05/02/25 07:56 05/02/25 08:00 05/02/25 08:00 Temperature 97.5 F L Pulse Rate 97 Respiratory Rate 16 Blood Pressure 119/77 Pulse Oximetry 95 98 Oxygen Delivery High Flow Therapy with Na High Flow Therapy with Na Oxygen Flow Rate 35 45 Fraction of Inspired Oxygen 45 05/02/25 08:00 05/02/25 09:01 05/02/25 09:07 Temperature Pulse Rate 109 H 92 89 Respiratory Rate 16 Blood Pressure Pulse Oximetry 90 Oxygen Delivery High Flow Therapy with Na Oxygen Flow Rate 35 Fraction of Inspired Oxygen 45 05/02/25 09:16 05/02/25 10:00 05/02/25 11:26 Temperature Pulse Rate 96 93 Respiratory Rate 16 Blood Pressure Pulse Oximetry Oxygen Delivery High Flow Therapy with Na Oxygen Flow Rate 35 Fraction of Inspired Oxygen 05/02/25 12:00 05/02/25 12:00 05/02/25 12:00 Temperature 97.6 F Pulse Rate 110 H 86 Respiratory Rate 18 Blood Pressure 129/70 Pulse Oximetry 91 93 Oxygen Delivery High Flow Therapy with Na Oxygen Flow Rate 40 Fraction of Inspired Oxygen 45 05/02/25 14:00 05/02/25 14:30 05/02/25 14:42 Temperature Pulse Rate 101 H 104 H 105 H Respiratory Rate 16 18 Blood Pressure Pulse Oximetry Oxygen Delivery Oxygen Flow Rate Fraction of Inspired Oxygen Intake/Output Intake/Output: Intake & Output 04/29/25 04/30/25 05/01/25 05/02/25 23:59 23:59 23:59 23:59 Intake Total 900 2400 2408.3 Output Total 1975 517 850 Balance -1101 4348 1558.3 Meds/Results Medications: Active Medications Generic Name Dose Route Start Last Admin Trade Name Freq PRN Reason Stop Dose Admin Acetaminophen 650 mg 04/30/25 01:42 05/02/25 12:25 Acetaminophen 325 Mg Tablet PO 650 mg Q4H PRN Administration Mild Pain (1-3) or Fever Albuterol/Ipratropium 3 ml 04/30/25 08:00 05/02/25 14:26 Ipratropium 0.5 Mg/Albuterol Sulfate 2.5 Mg Ampul.Neb 3 Ml INHALATION 3 ml Q6HRT VAMSI Administration Clotrimazole 10 mg 04/30/25 09:00 05/02/25 12:25 Clotrimazole 10 Mg Troc MUCOUS MEM 10 mg TID VAMSI Administration Fluticasone/Umeclidinium/Vilanterol 1 puff 04/30/25 08:00 05/02/25 08:52 Fluticasone/Umeclidin/Vilanter 100-62.5-25 Mcg Ellipta INHALATION 1 puff DAILYRT VAMSI Administration Heparin Sodium (Beef Lung) 50 units 04/30/25 09:00 05/02/25 08:50 Heparin Flush 50 Units/5 Ml Syringe IV PUSH 50 units QAM VAMSI Administration Heparin Sodium (Beef Lung) 50 units 04/30/25 04:13 Heparin Flush 50 Units/5 Ml Syringe IV PUSH PRN PRN after intermittent infusion Heparin Sodium (Beef Lung) 50 units 04/30/25 04:13 Heparin Flush 50 Units/5 Ml Syringe IV PUSH PRN PRN after blood draws Heparin Sodium (Porcine) 500 units 04/30/25 04:13 Heparin Sodium Lock Flush 500 Units/5 Ml Syringe IV PUSH PRN PRN see comments below Cefepime HCl 2 gm/ Sodium 50 mls @ 100 mls/hr 04/30/25 10:00 05/02/25 09:55 Chloride IVPB Infused Q8H VAMSI Infusion Azithromycin 500 mg/ Sodium 250 mls @ 250 mls/hr 04/30/25 21:00 05/01/25 21:30 Chloride IVPB 05/03/25 21:59 Infused Q24H VAMSI Infusion Lactated Ringer's 1,000 mls @ 100 mls/hr 04/30/25 16:25 05/02/25 14:15 Lr - Lactated Ringers Iv IV CONT 100 mls/hr .Q10H VAMSI Administration Lorazepam 2 mg 04/30/25 14:37 05/02/25 08:49 Lorazepam (*Crx) 1 Mg Tablet PO 2 mg BID PRN Administration Anxiety Methylprednisolone Sodium Succinate 60 mg 04/30/25 22:00 05/02/25 14:15 Methylprednisolone Sod Succ 125 Mg Vial IV PUSH 60 mg Q8HR VAMSI Administration Midodrine 5 mg 04/30/25 09:00 05/02/25 12:25 Midodrine Hcl 2.5 Mg Tablet PO 5 mg TID VAMSI Administration Morphine Sulfate 2 mg 04/30/25 01:42 Morphine Sulfate (*Crx) 2 Mg/Ml Inj IV PUSH Q2H PRN Pain Rated 7-10 Home Med (Phenelzine 15 mg 04/30/25 17:00 05/02/25 12:26 15 Mg Tablet) PO 05/30/25 16:59 15 mg TID VAMSI Administration Ondansetron HCl 4 mg 04/30/25 01:42 Ondansetron Inj 4 Mg/2 Ml Vial IV PUSH Q4H PRN Nausea Sodium Chloride 10 ml 04/30/25 06:00 05/02/25 14:15 Central Line Flush IV PUSH 10 ml Q8HR VAMSI Administration Radiology Results: ITS Impressions Chest X-Ray 04/29/25 22:42 IMPRESSION: Chronic interstitial change with a small left-sided pleural effusion and adjacent compressive atelectasis. Head CT 04/30/25 00:16 Impression: Examination is markedly limited by a significant amount of motion artifact. No large acute intracranial hemorrhage or suspicious significant mass effect. Chest CTA 04/30/25 00:19 IMPRESSION: No pulmonary embolus. No thoracic aortic dissection. Post radiation change within the right upper lobe with increase in size of the cavitary consolidation. Left apical scarring. Interval development of patchy groundglass opacification of the bilateral lung bases. Severe panlobular emphysematous disease redemonstrated. Tree-in-bud opacification of right upper lobe, an interval change from prior. Interval increase in size of an irregular focus of decreased attenuation within segment 7 of the liver when compared with previous study dated 03/14/2025 for which a metastatic lesion is suspected. If needed, this area is accessible via percutaneous biopsy, if not already performed. Cervical Spine CT 04/30/25 00:39 Impression: Significant degenerative disease, without acute significantly displaced fractures, as detailed above Labs Labs: Laboratory Results - last 24 hr 05/01/25 05/02/25 20:25 10:05 WBC 10.8 H RBC 2.82 L Hgb 7.2 L 7.9 L Hct 23.9 L 27.0 L MCV 95.7 MCH 28.0 MCHC 29.3 L RDW 19.4 H Plt Count 346 MPV 9.5 Immature Gran % (Auto) 0.7 H Neut % (Auto) 93.7 H Lymph % (Auto) 3.7 L [place] % (Auto) 1.8 L Eos % (Auto) 0.0 Baso % (Auto) 0.1 L Lymph # (Auto) 0.40 L [place] # (Auto) 0.2 Eos # (Auto) 0.0 Baso # (Auto) 0.0 Abs Immat Gran (auto) 0.08 H Absolute Neuts (auto) 10.2 H Absolute Nucleated RBC 0.000 Band Neutrophils % Not Reportable Nucleated RBC % 0.0 Platelet Estimate Adequate Polychromasia 1+ Hypochromasia 1+ Anisocytosis 2+ Schistocytes None seen Sodium 137 Potassium 3.6 Chloride 100 Carbon Dioxide 32 H Anion Gap 5 BUN 27 H Creatinine 0.44 L Estim Creat Clear Calc 105 Estimated GFR > 60 Glucose 179 H Calcium 8.8 Magnesium 2.0
[2025-05-02] MEDS: AZITHROMYCIN IV 500 MG in SODIUM CHLORIDE 0.9% IV 250 ML IVPB (21:33)
[2025-05-03] VITALS (23 sets, daily range): BP systolic 123–141; BP diastolic 76–87; PULSE 76–107; RESP 16–20; TEMP 36.3–36.8; O2SAT 91–97
[2025-05-03] MEDS: IPRATROPIUM 0.5 MG/ALBUTEROL SULFATE 2.5 MG AMPUL.NEB 3 ML INHALATION (01:40)
[2025-05-03] MEDS: CEFEPIME 2 GM in SODIUM CHLORIDE 0.9% IV 50 ML 100 ML IVPB ×3 (02:03→18:06)
[2025-05-03] MEDS: CENTRAL LINE FLUSH 10 ML IV PUSH ×3 (06:26→21:58)
[2025-05-03 06:51] LABS: Hematocrit 26.0 % (42.0-52.0); Hemoglobin 7.7 g/dL (14.0-18.0); Immature Granulocyte Percent A 1.2 % (0-0.5); Lymphocytes Absolute Auto 0.38 K/mm3 (0.9-3.2); Mean Corpuscular HGB Conc 29.6 g/dl (32-36); Mean Corpuscular Hemoglobin 28.4 pg (26-34); Mean Corpuscular Volume 95.9 fl (80-100); Nucleated Red Blood Cells Absolute Auto 0.000 K/mm3 (0.0-0.012); Nucleated Red Blood Cells Perc 0.0 % (0.0-0.2); Platelet Count Result 304 k/mm3 (150-375); Red Blood Count 2.71 M/mm3 (4.6-6.20); White Blood Count 8.3 K/mm3 (4.5-10.0)
[2025-05-03 07:00] LABS: Anion Gap 3 mmol/L (4-12); Blood Urea Nitrogen 25 mg/dL (9-20); Calcium 8.3 mg/dL (8.4-10.2); Carbon Dioxide 33 mmol/L (22-30); Chloride 98 mmol/L (98-107); Estimated CRCL calculation 116 ml/min; Estimated Glomerular Filt Rate > 60; Glucose 127 mg/dL (65-110); Magnesium 2.0 mg/dL (1.6-2.3); Potassium 3.4 mmol/L (3.4-5.0); Sodium 134 mmol/L (137-145)
[2025-05-03 07:11] LABS: Anisocytosis 1+; Hypochromasia 1+; Polychromasia 1+; Schistocytes None Seen
[2025-05-03] MEDS: FLUTICASONE/UMECLIDIN/VILANTER 100-62.5-25 MCG ELLIPTA 1 PUFF INHALATION (08:18)
--- NOTE | 2025-05-03 08:56 | P.PNIM_ITS ---
Progress Note: A&P Assessment and Plan (1) Sepsis without septic shock: Code(s): A41.9 - Sepsis, unspecified organism Status: Acute Assessment and Plan: With end-organ damage as evidence by minus of breath, hypoxia, low blood pressure responsive to IV fluids, tachycardia. WBC 1.3 on admission, rising to 11.7 on 05/17. Stable on 05/01/2025 Resume SET UP [employer] midodrine 04/29/2025 blood culture, pending Follow-up sputum culture 05/02/2025: Blood pressure improved, continue midodrine. Discontinue fluids. Treat pneumonia and cellulitis (2) Cellulitis: Code(s): L03.90 - Cellulitis, unspecified Status: Acute Assessment and Plan: Erythema and purulent drainage from the PEG tube orifice. Abdomen soft, nontender otherwise. Cefepime started on 04/30/2025 05/01/2025: Erythema improving (3) Pneumonia: Code(s): J18.9 - Pneumonia, unspecified organism Status: Acute Assessment and Plan: Shortness of breath, cough with productive sputum, hypoxia on admission. Receive 1 dose of vancomycin. MRSA nares negative. Chronic dysphagia due to previous tonsillectomy related to cancer. Continue chest physiotherapy Continue cefepime and azithromycin Sputum culture. Legionella pneumococcal and mycoplasma studies. Resume [employer] clotrimazole troches (4) Acute and chronic respiratory failure with hypercapnia: Code(s): J96.22 - Acute and chronic respiratory failure with hypercapnia Status: Acute Assessment and Plan: Placed on non-rebreather on presentation in the ER, now on high-flow nasal cannula. Patient feeling much better. Titrate per protocol. Quad viral screen negative (5) Anemia: Code(s): D64.9 - Anemia, unspecified Status: Acute Assessment and Plan: Hemoglobin 7.8 on admission, down to 7.0. 05/01/2025: Hemoglobin stable at 7.0. Patient was to recheck at 8 p.m.. He is amenable to transfusion for hemoglobin less than 7. 05/02/2025: Hemoglobin stable. Check stool occult. Patient denies dark stool, bright red blood per rectum. (6) COPD exacerbation: Code(s): J44.1 - Chronic obstructive pulmonary disease with (acute) exacerbation Status: Acute Assessment and Plan: ABG on admission with hypercapnia. Continue nebulizer treatments, Solu-Medrol. 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 Ponce, GERD, hyperlipidemia, COPD, prior tobacco abuse quit 10/2024, depression with anxiety, arthritis presents to [facility] ER on 04/30/2025 as he was having shortness of breath. In the ER he was afebrile with tachypnea and tachycardia and was placed on a non-rebreather, later changed to a high-flow nasal cannula. Given DuoNeb treatment. He had mild lactic acid elevation and was given 2 L fluid bolus. It appears at some point he was given Lasix although. Hyperkalemia, given calcium gluconate and high-dose albuterol, dextrose and insulin. CRP elevated, BNP elevated. Started on vancomycin ceftriaxone and azithromycin. Given Solu-Medrol 125 mg IV x1. Upon repeat evaluation he is on high-flow nasal cannula, does not complain of any symptoms moment, endorses a new cough and while in the room coughing muddy brown/yellow sputum. He also has drainage from his PEG orifice. ----- Reportedly had some falls at home. Cervical spine CT without acute fractures. Significant degenerative disease with chronic compression of T2 and T3. Head CT large amount of motion artifact but no acute findings revealed. Patient wishes to be DNR. Saline lock IV, ambulate with assistance, PT OT evaluations. SCDs only. Dietitian consulted, continue tube feeds. Subjective Date/time seen: 05/03/25 08:56 Interval history: Discussed with pulmonology. No evidence of cellulitis around PEG tube stoma. Review of Systems Review of Systems: All systems reviewed & are unremarkable except as noted in HPI and below (Subjective) Exam Const: General: comfortable and no acute distress Other: A&O x3 HENMT: Other: Poor dentition, dry mucous membranes Eyes: Pupils: Equal, round and reactive pupils present Neck: Neck: supple Resp: Other: Decreased air intake Cardio: Rate: tachycardic Rhythm: regular rhythm GI: Inspection: non-distended Other: Erythema surrounding the orifice of the PEG tube, improved. Neuro: Cranial nerves: Yes Equal, round and reactive pupils present Motor exam (neuro): 5/5 motor strength present throughout Extrem: General: no edema Objective Data Vital Signs Vital Signs: Vital Signs - 24 hr 05/02/25 09:01 05/02/25 09:07 05/02/25 09:16 Temperature Pulse Rate 92 89 96 Respiratory Rate 16 16 Blood Pressure Pulse Oximetry 90 Oxygen Delivery High Flow Therapy with Na Oxygen Flow Rate 35 Fraction of Inspired Oxygen 45 05/02/25 10:00 05/02/25 11:26 05/02/25 12:00 Temperature 97.6 F Pulse Rate 93 110 H Respiratory Rate 18 Blood Pressure 129/70 Pulse Oximetry 91 Oxygen Delivery High Flow Therapy with Na Oxygen Flow Rate 35 Fraction of Inspired Oxygen 05/02/25 12:00 05/02/25 12:00 05/02/25 14:00 Temperature Pulse Rate 86 101 H Respiratory Rate Blood Pressure Pulse Oximetry 93 Oxygen Delivery High Flow Therapy with Na Oxygen Flow Rate 40 Fraction of Inspired Oxygen 45 05/02/25 14:30 05/02/25 14:42 05/02/25 15:27 Temperature 98.1 F Pulse Rate 104 H 105 H 106 H Respiratory Rate 16 18 24 H Blood Pressure 132/73 Pulse Oximetry 88 L Oxygen Delivery Oxygen Flow Rate Fraction of Inspired Oxygen 05/02/25 16:00 05/02/25 16:00 05/02/25 18:00 Temperature Pulse Rate 106 H 109 H Respiratory Rate Blood Pressure Pulse Oximetry 94 Oxygen Delivery High Flow Therapy with Na Oxygen Flow Rate 40 Fraction of Inspired Oxygen 45 05/02/25 20:00 05/02/25 20:00 05/02/25 20:18 Temperature 97.8 F Pulse Rate 92 94 80 Respiratory Rate 20 20 Blood Pressure 131/80 Pulse Oximetry 95 Oxygen Delivery Oxygen Flow Rate Fraction of Inspired Oxygen 05/02/25 20:23 05/02/25 22:00 05/02/25 23:44 Temperature 97 F L Pulse Rate 96 93 88 Respiratory Rate 20 Blood Pressure 128/83 Pulse Oximetry 80 L 98 Oxygen Delivery Oxygen Flow Rate 35 Fraction of Inspired Oxygen 35 05/03/25 00:00 05/03/25 01:40 05/03/25 01:46 Temperature Pulse Rate 100 90 90 Respiratory Rate 18 18 Blood Pressure Pulse Oximetry Oxygen Delivery Oxygen Flow Rate Fraction of Inspired Oxygen 05/03/25 02:00 05/03/25 04:00 05/03/25 04:00 Temperature 97.5 F L Pulse Rate 80 94 76 Respiratory Rate 20 Blood Pressure 125/77 Pulse Oximetry 94 Oxygen Delivery Oxygen Flow Rate Fraction of Inspired Oxygen 05/03/25 06:00 05/03/25 07:48 05/03/25 08:18 Temperature 97.9 F Pulse Rate 81 86 95 Respiratory Rate 20 16 Blood Pressure 123/77 Pulse Oximetry 95 Oxygen Delivery Oxygen Flow Rate Fraction of Inspired Oxygen 05/03/25 08:19 05/03/25 08:25 Temperature Pulse Rate 95 97 Respiratory Rate 18 16 Blood Pressure Pulse Oximetry 91 Oxygen Delivery Oxygen Flow Rate 35 Fraction of Inspired Oxygen Intake/Output Intake/Output: Intake & Output 04/30/25 05/01/25 05/02/25 05/03/25 23:59 23:59 23:59 23:59 Intake Total 900 2400 2458.3 Output Total 3795 314 6698 325 Balance -1075 1899 1308.3 -325 Meds/Results Medications: Active Medications Generic Name Dose Route Start Last Admin Trade Name Freq PRN Reason Stop Dose Admin Acetaminophen 650 mg 04/30/25 01:42 05/02/25 17:10 Acetaminophen 325 Mg Tablet PO 650 mg Q4H PRN Administration Mild Pain (1-3) or Fever Albuterol/Ipratropium 3 ml 04/30/25 08:00 05/03/25 01:40 Ipratropium 0.5 Mg/Albuterol Sulfate 2.5 Mg Ampul.Neb 3 Ml INHALATION 3 ml Q6HRT VAMSI Administration Clotrimazole 10 mg 04/30/25 09:00 05/02/25 17:10 Clotrimazole 10 Mg Troc MUCOUS MEM 10 mg TID VAMSI Administration Fluticasone/Umeclidinium/Vilanterol 1 puff 04/30/25 08:00 05/03/25 08:18 Fluticasone/Umeclidin/Vilanter 100-62.5-25 Mcg Ellipta INHALATION 1 puff DAILYRT VAMSI Administration Heparin Sodium (Beef Lung) 50 units 04/30/25 09:00 05/02/25 08:50 Heparin Flush 50 Units/5 Ml Syringe IV PUSH 50 units QAM VAMSI Administration Heparin Sodium (Beef Lung) 50 units 04/30/25 04:13 Heparin Flush 50 Units/5 Ml Syringe IV PUSH PRN PRN after intermittent infusion Heparin Sodium (Beef Lung) 50 units 04/30/25 04:13 Heparin Flush 50 Units/5 Ml Syringe IV PUSH PRN PRN after blood draws Heparin Sodium (Porcine) 500 units 04/30/25 04:13 Heparin Sodium Lock Flush 500 Units/5 Ml Syringe IV PUSH PRN PRN see comments below Cefepime HCl 2 gm/ Sodium 50 mls @ 100 mls/hr 04/30/25 10:00 05/03/25 02:03 Chloride IVPB 100 mls/hr Q8H VAMSI Administration Azithromycin 500 mg/ Sodium 250 mls @ 250 mls/hr 04/30/25 21:00 05/02/25 2 1:33 Chloride IVPB 05/03/25 21:59 250 mls/hr Q24H VAMSI Administration Lorazepam 2 mg 04/30/25 14:37 05/02/25 17:10 Lorazepam (*Crx) 1 Mg Tablet PO 2 mg BID PRN Administration Anxiety Methylprednisolone Sodium Succinate 60 mg 04/30/25 22:00 05/03/25 06:26 Methylprednisolone Sod Succ 125 Mg Vial IV PUSH 60 mg Q8HR VAMSI Administration Midodrine 5 mg 04/30/25 09:00 05/02/25 17:10 Midodrine Hcl 2.5 Mg Tablet PO 5 mg TID VAMSI Administration Morphine Sulfate 2 mg 04/30/25 01:42 Morphine Sulfate (*Crx) 2 Mg/Ml Inj IV PUSH Q2H PRN Pain Rated 7-10 Home Med (Phenelzine 15 mg 04/30/25 17:00 05/02/25 17:10 15 Mg Tablet) PO 05/30/25 16:59 15 mg TID VAMSI Administration Ondansetron HCl 4 mg 04/30/25 01:42 Ondansetron Inj 4 Mg/2 Ml Vial IV PUSH Q4H PRN Nausea Sodium Chloride 10 ml 04/30/25 06:00 05/03/25 06:26 Central Line Flush IV PUSH 10 ml Q8HR VAMSI Administration Radiology Results: ITS Impressions Chest X-Ray 04/29/25 22:42 IMPRESSION: Chronic interstitial change with a small left-sided pleural effusion and adjacent compressive atelectasis. Head CT 04/30/25 00:16 Impression: Examination is markedly limited by a significant amount of motion artifact. No large acute intracranial hemorrhage or suspicious significant mass effect. Chest CTA 04/30/25 00:19 IMPRESSION: No pulmonary embolus. No thoracic aortic dissection. Post radiation change within the right upper lobe with increase in size of the cavitary consolidation. Left apical scarring. Interval development of patchy groundglass opacification of the bilateral lung bases. Severe panlobular emphysematous disease redemonstrated. Tree-in-bud opacification of right upper lobe, an interval change from prior. Interval increase in size of an irregular focus of decreased attenuation within segment 7 of the liver when compared with previous study dated 03/14/2025 for which a metastatic lesion is suspected. If needed, this area is accessible via percutaneous biopsy, if not already performed. Cervical Spine CT 04/30/25 00:39 Impression: Significant degenerative disease, without acute significantly displaced fra ctures, as detailed above Labs Labs: Laboratory Results - last 24 hr 05/02/25 05/03/25 10:05 06:26 WBC 10.8 H 8.3 RBC 2.82 L 2.71 L Hgb 7.9 L 7.7 L Hct 27.0 L 26.0 L MCV 95.7 95.9 MCH 28.0 28.4 MCHC 29.3 L 29.6 L RDW 19.4 H 19.1 H Plt Count 346 304 MPV 9.5 9.3 Immature Gran % (Auto) 0.7 H 1.2 H Neut % (Auto) 93.7 H 91.4 H Lymph % (Auto) 3.7 L 4.6 L Wheeler % (Auto) 1.8 L 2.8 Eos % (Auto) 0.0 0.0 Baso % (Auto) 0.1 L 0.0 L Lymph # (Auto) 0.40 L 0.38 L Wheeler # (Auto) 0.2 0.2 Eos # (Auto) 0.0 0.0 Baso # (Auto) 0.0 0.0 Abs Immat Gran (auto) 0.08 H 0.10 H Absolute Neuts (auto) 10.2 H 7.6 H Absolute Nucleated RBC 0.000 0.000 Band Neutrophils % Not Reportable Not Reportable Nucleated RBC % 0.0 0.0 Platelet Estimate Adequate Adequate Polychromasia 1+ 1+ Hypochromasia 1+ 1+ Anisocytosis 2+ 1+ Schistocytes None seen None seen Sodium 137 134 L Potassium 3.6 3.4 Chloride 100 98 Carbon Dioxide 32 H 33 H Anion Gap 5 3 L BUN 27 H 25 H Creatinine 0.44 L 0.42 L Estim Creat Clear Calc 105 116 Estimated GFR > 60 > 60 Glucose 179 H 127 H Calcium 8.8 8.3 L Magnesium 2.0 2.0 Hospitalist MIPS Advance Care Plan I have confirmed that the patient's Advanced Care Plan is present, code status is documented, or surrogate decision maker is listed in patient medical record.: Yes Medication Reconciliation I have utilized all available resources to obtain, update and review the patients current medications (includes all prescriptions, OTC, herbals, cannabis, and nutritional supplements).: Yes
[2025-05-03] MEDS: CLOTRIMAZOLE 10 MG TROC MUCOUS MEM ×3 (08:59→18:10)
[2025-05-03] MEDS: MIDODRINE HCL 2.5 MG TABLET 5 MG PO (08:59)
[2025-05-03] MEDS: PHENELZINE 15 MG 15 EACH PO ×3 (09:00→18:09)
[2025-05-03] MEDS: LORazepam (*CRX) 1 MG TABLET 2 MG PO (09:00)
--- NOTE | 2025-05-03 10:55 | PM.CNPUL ---
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 Tobacco use 2 packs a day for 50 years quit 10/29/2024, total pack years 100. On a good day walks with a walker around his house. Patient tells me he uses 3 L at rest and with activity and 2 L at night. Maintained on trelegy and p.r.n. rescue albuterol nebulizers. Tells me he had pneumonia and the flu in October of 2024 and that is when they started the oxygen. He had the pneumonia and the flu in December of 2024. 04/29/2023: Patient presented to the emergency department with shortness of breath, weakness, fall, cough. EMS found him on 3 L nasal cannula saturations in the 50s. He was placed on 15 L non-rebreather with saturations 80. In the emergency department blood pressure 102/66, heart rate 105, respirations 21, non-rebreather 10 L saturation 95%. ABG on 15 L non-rebreather 7.32/76/61. Patient placed on high-flow nasal cannula for 35 L and 45% FiO2 with saturations 90%. White blood cell count 7.3 with eosinophils 2.7, creatinine 0.41, BNP 1780, CRP 7.6, COVID influenza RSV RT PCR assay negative, MRSA swab negative. CT angiogram of the chest showed no PE, right upper lobe consolidation with increasing cavity size compared to 03/14/2025, new consolidative infiltrate posterior segment right upper lobe, new patchy infiltrate anterior segment right upper lobe, unchanged right lower lobe basilar infiltrate, more densely consolidated left lower lobe infiltrate. increasing size of liver hypo dense irregular focus to 15.5 x 17.3 mm and has increased from 9 x 13.5 mm. Patient started on Solu-Medrol, ceftriaxone and azithromycin. Ceftriaxone changed to cefepime. 04/30/2025: A.m.: Airvo 40 L, 45% FiO2 saturations 97% 05/01/2025: 8:00 a.m. Airvo 35 L, 45% FiO2 saturations 92% 05/02/2025: 8:00 a.m. Airvo 45 L, 45% FiO2, saturation 98% 05/03/2025: Currently the patient tells me he is back to normal. His cough is the same as usual. He produces thin clear phlegm and this is at his baseline. When I enter the room he was on 3 L nasal cannula saturations 97%. I decreased him to 2 L nasal cannula his saturations were 92%. White blood cell count 8.3, creatinine 0.42. CRP is decreased from 7.6 on 04/29/2025. BNP has increased to 9930 today. Yesterday he was 1.3 L positive in cumulative since admission he is 1.8 L positive. weight is 67.1 with an admission weight of 61.5. Plan: Patient has improved. He is on Solu-Medrol 60 Q 8 he, day 4 of steroids. He is on DuoNebs q.6 hours as well as trelegy 100. He is having some difficulty expectorating. He is being treated for possible pneumonia with cefepime and azithromycin, both day 4. He has received his trelegy 100 today. I will discontinue DuoNebs. I will discontinue IV Solu-Medrol and place him on prednisone 40 mg p.o. on 05/04/2025. I will add guaifenesin liquid 400 mg per tube q.i.d. I will order an ABG to reassess for hypercarbic respiratory failure. I will order an alpha 1 anti trypsin genotype and level. I have ordered an extended respiratory pathogen panel. Urine for Legionella, urine for pneumococcal and serum IgE M for mycoplasma are pending. I will order an overnight oximetry on 2 L nasal cannula to assess for nocturnal hypoxia. If the above testing is unremarkable, patient may be able to be discharged on 05/04/2025. Discussed with Dr. Vazquez, will follow with you. (2) Lung cancer: Code(s): C34.90 - Malignant neoplasm of unspecified part of unspecified bronchus or lung Status: Acute Assessment and Plan: From l oncology note 01/13/25: CT scan chest was performed on 12/24/2024 which showed a 4 x 4 x 4 cm regular hypodense masslike lesion in the medial right lung apex extending into the superior mediastinum. This mass was mildly increased from prior his prior exam on 11/12/2024. Also noted with Passy bibasilar predominant consolidation and ground-glass opacities with tree-in-bud opacities concerning for infection-inflammatory process. He underwent EBUS on 12/31/2024 at [facility] consistent with squamous cell carcinoma. Patient was seen by radiation oncologist. PET scan scheduled 01/19/2025 and brain MRI 01/25/2025. Tumor board discussion and if patient can tolerate concurrent chemotherapy. Radiation oncology note 03/18/2025. PMHX: Prostate cancer: March 2019 he completed definitive moderately hypo fractionated prostate radiation utilizing the mat arc based IMRT on 06/21/2022. Recommended 4-6 months of ADT given the Hatch 4 + 3 histology and rapidly rising PSA however he refused. Presented to urgent care in October of 2024 with cough and COPD at outside hospital workup revealed right upper lobe mass and biopsies were consistent with cysts non-small cell carcinoma of the lung and he was referred here for further evaluation and management. Patient is planned to receive external beam radiation with concurrent chemotherapy. Completed 03/12/2030 fractions to cumulative dose of 5200 cGy in 37 elapsed days. Plan continue treatments. The patient tells me he finished his chemotherapy and radiation treatment on 03/28/2025. Repeat CT scan done by his oncologist is reported by the patient has stable right upper lobe but worsening right lower lobe consistent with cancer. Plan: He will follow-up with Oncology on 05/10/2025 with a plan for additional chemotherapy. 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 Tobacco use 2 packs a day for 50 years quit 10/29/2024, total pack years 100. On a good day walks with a walker around his house. Patient tells me he uses 3 L at rest and with activity and 2 L at night. Maintained on trelegy and p.r.n. rescue albuterol nebulizers. Tells me he had pneumonia and the flu in October of 2024 and that is when they started the oxygen. He had the pneumonia and the flu in December of 2024. Oncology note 01/13/2025: CT scan chest was performed on 12/24/2024 which showed a 4 x 4 x 4 cm regular hypodense masslike lesion in the medial right lung apex extending into the superior mediastinum. This mass was mildly increased from prior his prior exam on 11/12/2024. Also noted with Passy bibasilar predominant consolidation and ground-glass opacities with tree-in-bud opacities concerning for infection-inflammatory process. He underwent EBUS on 12/31/2024 at [facility] consistent with squamous cell carcinoma. Patient was seen by radiation oncologist. PET scan scheduled 01/19/2025 and brain MRI 01/25/2025. Tumor board discussion and if patient can tolerate concurrent chemotherapy. Radiation oncology note 03/18/2025. PMHX: Prostate cancer: March 2019 he completed definitive moderately hypo fractionated prostate radiation utilizing the mat arc based IMRT on 06/21/2022. Recommended 4-6 months of ADT given the Hatch 4 + 3 histology and rapidly rising PSA however he refused. Presented to urgent care in October of 2024 with cough and COPD at outside hospital workup revealed right upper lobe mass and biopsies were consistent with cysts non-small cell carcinoma of the lung and he was referred here for further evaluation and management. Patient is planned to receive external beam radiation with concurrent chemotherapy. Completed 03/12/2030 fractions to cumulative dose of 5200 cGy in 37 elapsed days. Plan continue treatments. 04/01/2025: Peg tube placed via EGD. 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 He had odynophagia post radiation therapy and while in the hospital he had G-tube placed due to malnutrition. complains of upper back and neck pain. Denies any radiation/numbness/tingling On 2 L of oxygen at night and 3 L with exertion weight 127 lb. Plan: COPD, stable on trelegy, 2 L at night and 3 with exertion. new compression fractures T1 and T2 possibly related to osteoporosis, post radiation, neoplastic involvement referred pain medicine, talked to Oncology. Orthostatic hypotension: Drop in blood pressure when he is standing, he is asymptomatic, advised him to use compression stockings, maintain hydration and will start him on mid hurting 2.5 t.i.d.. 04/29/2023: Patient presented to the emergency department with shortness of breath, weakness, fall, cough. EMS found him on 3 L nasal cannula saturations in the 50s. He was placed on 15 L non-rebreather with saturations 80. In the emergency department blood pressure 102/66, heart rate 105, respirations 21, non-rebreather 10 L saturation 95%. ABG on 15 L non-rebreather 7.32/76/61. Patient placed on high-flow nasal cannula for 35 L and 45% FiO2 with saturations 90%. White blood cell count 7.3 with eosinophils 2.7, creatinine 0.41, BNP 1780, CRP 7.6, COVID influenza RSV RT PCR assay negative, MRSA swab negative. CT angiogram of the chest showed no PE, right upper lobe consolidation with increasing cavity size compared to 03/14/2025, new consolidative infiltrate posterior segment right upper lobe, new patchy infiltrate anterior segment right upper lobe, unchanged right lower lobe basilar infiltrate, more densely consolidated left lower lobe infiltrate. increasing size of liver hypo dense irregular focus to 15.5 x 17.3 mm and has increased from 9 x 13.5 mm. Patient started on Solu-Medrol, ceftriaxone and azithromycin. Ceftriaxone changed to cefepime. 04/30/2025: A.m.: Airvo 40 L, 45% FiO2 saturations 97% 05/01/2025: 8:00 a.m. Airvo 35 L, 45% FiO2 saturations 92% 05/02/2025: 8:00 a.m. Airvo 45 L, 45% FiO2, saturation 98% 05/03/2025: Currently the patient tells me he is back to normal. His cough is the same as usual. He produces thin clear phlegm and this is at his baseline. When I enter the room he was on 3 L nasal cannula saturations 97%. I decreased him to 2 L nasal cannula his saturations were 92%. White blood cell count 8.3, creatinine 0.42. CRP is decreased from 7.6 on 04/29/2025. BNP has increased to 9930 today. Yesterday he was 1.3 L positive in cumulative since admission he is 1.8 L positive. weight is 67.1 with an admission weight of 61.5. The patient tells me he finished his chemotherapy and radiation treatment on 03/28/2025. Repeat CT scan done by his oncologist is reported by the patient has stable right upper lobe but worsening right lower lobe consistent with cancer. He will follow-up with Oncology on 05/10/2025 with a plan for additional chemotherapy. DATA: EXAMINATION: CTA chest PE protocol DATE: 04/30/2025 0:21 CDT INDICATION: Shortness of breath. Patient with a recent diagnosis of lung cancer currently undergoing radiation treatment, on 2 L of oxygen at night and 3 L of oxygen at home with exertion. Prior history of head and neck cancer post radiation more than 20 years earlier. TECHNIQUE: Computed tomographic angiography (CTA) of the chest was performed with 100 mL Omnipaque-350 intravenous contrast. The dose-length product was 362.45 mGy-cm. Maximum intensity projection 3D-reconstructions of the aorta and other arteries were constructed by the technologist on a separate workstation. COMPARISON: 03/14/2025 FINDINGS/OBSERVATIONS: PULMONARY ARTERIES: No filling defect is identified within the main or proximal pulmonary artery. The main pulmonary artery is markedly enlarged, unchanged. THORACIC AORTA: No aneurysmal dilatation or dissection is present. The great vessels are intact LUNGS: Left apical scarring. Dense cavitary consolidation of the medial segment of the right upper lobe, likely post radiation change. Interval development patchy groundglass opacification of the bilateral lung bases. Panlobular emphysematous change redemonstrated. Tree-in-bud opacification of the right upper lobe, an interval change from prior. MEDIASTINUM: No morphologically suspicious or pathologically enlarged lymph nodes are identified within the mediastinum or bilateral axilla. BONES OF THE CHEST: Diffuse bony demineralization. Redemonstration of Ovalle rods. Prior anterior wedge compression of T1 and T2 (to a lesser degree) and T12. No lytic or blastic lesions appreciated. HEART: The heart is significantly enlarged, unchanged, without pericardial effusion. Upper abdomen: Interval increase in size of an irregular focus of decreased attenuation within segment 7 of the liver (axial series, image 268). This area measures 15.5 x 17.3 mm and has increased from 9 x 13.5 mm on the previous study dated 03/14/2025. Redemonstration of a flash filling hemangioma within segment 2/3 of the liver. Multiple stones within the gallbladder. Interval placement of a percutaneous gastrostomy since prior study. IMPRESSION: No pulmonary embolus. No thoracic aortic dissection. Post radiation change within the right upper lobe with increase in size of the cavitary consolidation. Left apical scarring. Interval development of patchy groundglass opacification of the bilateral lung bases. Severe panlobular emphysematous disease redemonstrated. Tree-in-bud opacification of right upper lobe, an interval change from prior. Interval increase in size of an irregular focus of decreased attenuation within segment 7 of the liver when compared with previous study dated 03/14/2025 for which a metastatic lesion is suspected. If needed, this area is accessible via percutaneous biopsy, if not already performed. CT scan chest was performed on 12/24/2024 which showed a 4 x 4 x 4 cm regular hypodense masslike lesion in the medial right lung apex extending into the superior mediastinum. This mass was mildly increased from prior his prior exam on 11/12/2024. Also noted with Passy bibasilar predominant consolidation and ground-glass opacities with tree-in-bud opacities concerning for infection-inflammatory process. Review of Systems Constitutional: Constitutional: Reports no additional constitutional complaints Eyes: Eyes: Reports no additional eye complaints ENT: Reports system reviewed and no additional complaints, except as documented Cardiovascular: Cardiovascular: Reports no additional cardiovascular complaints Respiratory: Respiratory: Reports no additional respiratory complaints Gastrointestinal: Gastrointestinal: Reports no additional gastrointestinal complaints Musculoskeletal: Musculoskeletal: Reports no additional musculoskeletal complaints Neurologic: Reports system reviewed and no additional complaints, except as documented Psychiatric: Psychiatric: Reports no additional psychiatric complaints Endocrine: Endocrine: Reports no additional endocrine complaints Hematologic/Lymphatic: Hematologic/Lymphatic: Reports no additional hematologic/lymphatic complaints Allergic/Immunologic: Allergic/Immunologic: Reports no additional allergic/immunologic complaints [facility] Past Medical History Medical History Chronic neck and back pain Encounter for feeding tube placement (~03/2025) Greater trochanter fracture (~01/2024) Non-small cell carcinoma of right lung (~12/2024) Respiratory failure (~10/2024) Hx of malignant neoplasm of prostate GERD without esophagitis Hyperlipidemia Skin cancer History of fracture of left hip COPD (chronic obstructive pulmonary disease) Squamous cell carcinoma of tonsil Status post radical neck dissection with chemotherapy and radiation treatment in 2001. Prostate cancer Recently discovered on biopsy. Apparently low-grade and is being followed by surveillance. Melanoma Melanoma x2 excised from the chest. Anxiety Depression Arthritis Back fracture T12 fracture in 1992. Surgical History Surgical History History of radical neck dissection 1999; ENT Dr Basurto (Khloe/Tristan Blas) Status post-operative repair of closed fracture of left hip Status post surgical removal of malignant neoplasm of skin Including melanoma from the chest and basal cell carcinoma from the cheek and arms. History of back surgery Hx of appendectomy Family History Family History Mother Congestive heart failure Social History Social History Social History: The patient is to his 3rd and lives in [place]. He has 13 children, youngest is 3. He is retired, worked for the [employer]. He designates his , Nicole, as his surrogate decision maker and he wishes to be a full code. Smoking packs per day: 2 Smoking cigarettes per day: 40.0 Years smoked: 50 Smoking pack-years: 100.00 Smoking status: Former smoker Tobacco type: cigarettes Smoking end date: 10/29/24 Alcohol intake: never Substance use: never Substance use type: does not use Last use: oct 29, 2024 Do You Feel Safe in your Home?: Yes Lack of Transportation: No Lack of Food: Never True Current Housing: I Have Housing Concerned About Future Housing: No Difficulty Paying Gas/Electric Bills: No Difficulty Paying for Meds: No Currently Unemployed: No Education: Bachelor's Degree Difficulty w/ Childcare or Family Care: No Living arrangements: with family Additional living arrangements comments: Occupation/Education: retired Gender identity (if verbalized by the patient): Male Sexual Orientation (if Verbalized by the Patient): Straight or Heterosexual Spiritual care concerns: No Agree to blood products: Yes Meds Home Medications and Allergies Home Medications ?Medication ?Instructions ?Recorded ?Confirmed ?Type phenelzine 15 mg tablet 15 mg PO TID #270 tabs 01/21/25 04/30/25 Rx clotrimazole 10 mg alia 10 mg mucous membrane TID #30 tabs 03/18/25 04/30/25 Rx fluticasone fur. 100 mcg-umeclid 1 inh inhalation Q24H 03/18/25 04/30/25 History 62.5 mcg-vilant 25 mcg inhalat.powder (Trelegy Ellipta) ipratropium 0.5 mg-albuterol 3 mg 3 ml inhalation Q6H PRN shortness 03/18/25 04/30/25 Rx (2.5 mg base)/3 mL nebulization of breath or wheezing #180 mL soln lorazepam 2 mg tablet 2 mg PO BID PRN Anxiety #60 tabs 04/01/25 04/30/25 Rx albuterol sulfate 0.63 mg/3 mL 0.63 mg continuous nebulization 04/07/25 04/30/25 History solution for nebulization Q6-8H PRN bronchospasm lactose-reduced food with fiber 1 ea feeding tube QID #30,000 mL 04/08/25 04/30/25 Rx 0.06 gram-1.5 kcal/mL oral liquid (Jevity 1.5 Gordo) Brenden Liquid Protein 30 ml BYMOUTH 2XD #60 packets 04/16/25 04/30/25 Rx midodrine 5 mg tablet 5 mg PO TID #90 tabs 04/22/25 04/30/25 Rx Allergies Allergy/AdvReac Type Severity Reaction Status Date / Time No Known Allergies Allergy Verified 04/08/25 14:58 Vital Signs Vital Signs - 24 hr 05/02/25 11:26 05/02/25 12:00 05/02/25 12:00 Temperature 36.4 C Pulse Rate 110 H Respiratory Rate 18 Blood Pressure 129/70 Pulse Oximetry 91 93 Oxygen Delivery High Flow Therapy with Na High Flow Therapy with Na Oxygen Flow Rate 35 40 Fraction of Inspired Oxygen 45 05/02/25 12:00 05/02/25 14:00 05/02/25 14:30 Temperature Pulse Rate 86 101 H 104 H Respiratory Rate 16 Blood Pressure Pulse Oximetry Oxygen Delivery Oxygen Flow Rate Fraction of Inspired Oxygen 05/02/25 14:42 05/02/25 15:27 05/02/25 16:00 Temperature 36.7 C Pulse Rate 105 H 106 H Respiratory Rate 18 24 H Blood Pressure 132/73 Pulse Oximetry 88 L 94 Oxygen Delivery High Flow Therapy with Na Oxygen Flow Rate 40 Fraction of Inspired Oxygen 45 05/02/25 16:00 05/02/25 18:00 05/02/25 20:00 Temperature 36.6 C Pulse Rate 106 H 109 H 92 Respiratory Rate 20 Blood Pressure 131/80 Pulse Oximetry 95 Oxygen Delivery Oxygen Flow Rate Fraction of Inspired Oxygen 05/02/25 20:00 05/02/25 20:18 05/02/25 20:23 Temperature Pulse Rate 94 80 96 Respiratory Rate 20 Blood Pressure Pulse Oximetry 80 L Oxygen Delivery Oxygen Flow Rate 35 Fraction of Inspired Oxygen 35 05/02/25 22:00 05/02/25 23:44 05/03/25 00:00 Temperature 36.1 C L Pulse Rate 93 88 100 Respiratory Rate 20 Blood Pressure 128/83 Pulse Oximetry 98 Oxygen Delivery Oxygen Flow Rate Fraction of Inspired Oxygen 05/03/25 01:40 05/03/25 01:46 05/03/25 02:00 Temperature Pulse Rate 90 90 80 Respiratory Rate 18 18 Blood Pressure Pulse Oximetry Oxygen Delivery Oxygen Flow Rate Fraction of Inspired Oxygen 05/03/25 04:00 05/03/25 04:00 05/03/25 06:00 Temperature 36.4 C L Pulse Rate 94 76 81 Respiratory Rate 20 Blood Pressure 125/77 Pulse Oximetry 94 Oxygen Delivery Oxygen Flow Rate Fraction of Inspired Oxygen 05/03/25 07:48 05/03/25 08:00 05/03/25 08:18 Temperature 36.6 C Pulse Rate 86 84 95 Respiratory Rate 20 16 Blood Pressure 123/77 Pulse Oximetry 95 Oxygen Delivery Oxygen Flow Rate Fraction of Inspired Oxygen 05/03/25 08:19 05/03/25 08:25 05/03/25 10:00 Temperature Pulse Rate 95 97 86 Respiratory Rate 18 16 Blood Pressure Pulse Oximetry 91 Oxygen Delivery Oxygen Flow Rate 35 Fraction of Inspired Oxygen 05/03/25 10:20 Temperature Pulse Rate 95 Respiratory Rate 20 Blood Pressure Pulse Oximetry 96 Oxygen Delivery High Flow Nasal Cannula Oxygen Flow Rate 3 Fraction of Inspired Oxygen Exam Const: General: cooperative and comfortable Orientation/consciousness: oriented to person, oriented to place and oriented to time Other: very thin, very soft of obese after his treatment for throat cancer. HENMT: Head: normal to inspection Ears: hearing grossly normal bilaterally Eyes: General: appearance normal, both eyes and all related structures Neck: Neck: normal visual inspection Chest: Chest palpation & inspection: normal inspection of the chest Resp: Effort & Inspection: normal respiratory effort and able to speak in complete sentences Auscultation: no crackles, no rales, no rhonchi, no wheezes and diminished lung sounds Cardio: Jugular venous distension: no JVD GI: Inspection: normal to inspection GI Palp: No abdominal tenderness Skin: General skin exam: normal color Neuro: General: oriented to person, oriented to place and oriented to time Extrem: General: normal to inspection and no edema Psych: Appearance: grossly normal Results Laboratory Findings 05/03/25 06:26 05/03/25 06:26 ABG, PT/INR, D-dimer: ABG ABG pH 7.324 (7.350-7.450) L 04/30/25 00:05 ABG pCO2 75.8 mmHg (35.0-45.0) H* 04/30/25 00:05 ABG pO2 61.2 mmHg (80.0-100.0) L 04/30/25 00:05 ABG O2 Saturation 88.4 % (95.0-100.0) L 04/30/25 00:05 Abnormal lab findings: Abnormal Labs 04/29/25 04/30/25 04/30/25 21:52 00:05 01:20 WBC RBC 2.76 L Hgb 7.8 L Hct 26.6 L MCHC 29.3 L RDW 18.9 H Plt Count 401 H Immature Gran % (Auto) 1.0 H Neut % (Auto) 77.6 H Lymph % (Auto) 10.3 L Garza % (Auto) Baso % (Auto) Lymph # (Auto) 0.75 L Abs Immat Gran (auto) 0.07 H Absolute Neuts (auto) Band Neutrophils % Lymphocytes % (Manual) Abs Neuts (Manual) Abs Lymphs (Manual) ABG pH 7.324 L ABG pCO2 75.8 H* ABG pO2 61.2 L ABG HCO3 38.5 H ABG O2 Saturation 88.4 L ABG O2 Content 13.1 L Oxyhemoglobin 87.1 L* Total Hemoglobin 10.7 L Sodium 133 L Potassium 5.7 H Chloride 88 L Carbon Dioxide 37 H Anion Gap BUN 72 H D Creatinine Glucose 148 H POC Capillary Glucose Lactic Acid 2.2 H Calcium C-Reactive Protein 7.6 H NT-Pro-B Natriuret Pep 1780 H Albumin Urine Protein 1+ H Urine Ketones Trace H 04/30/25 04/30/25 04/30/25 02:27 02:52 03:09 WBC RBC Hgb Hct MCHC RDW Plt Count Immature Gran % (Auto) Neut % (Auto) Lymph % (Auto) Garza % (Auto) Baso % (Auto) Lymph # (Auto) Abs Immat Gran (auto) Absolute Neuts (auto) Band Neutrophils % Lymphocytes % (Manual) Abs Neuts (Manual) Abs Lymphs (Manual) ABG pH ABG pCO2 ABG pO2 ABG HCO3 ABG O2 Saturation ABG O2 Content Oxyhemoglobin Total Hemoglobin Sodium Potassium Chloride Carbon Dioxide Anion Gap BUN Creatinine Glucose POC Capillary Glucose 279 H 176 H Lactic Acid 2.4 H Calcium C-Reactive Protein NT-Pro-B Natriuret Pep Albumin Urine Protein Urine Ketones 04/30/25 04/30/25 05/01/25 06:28 18:11 05:56 WBC 11.7 H 11.5 H RBC 2.45 L 2.44 L Hgb 7.0 L 7.3 L 7.0 L Hct 23.3 L 24.5 L 23.4 L MCHC 30.0 L 29.9 L RDW 18.8 H 19.2 H Plt Count Immature Gran % (Auto) Neut % (Auto) 94.9 H Lymph % (Auto) 2.7 L Garza % (Auto) 1.9 L Baso % (Auto) Lymph # (Auto) 0.31 L Abs Immat Gran (auto) 0.04 H Absolute Neuts (auto) 11.0 H Band Neutrophils % 35 H Lymphocytes % (Manual) 2 L Abs Neuts (Manual) 11.11 H Abs Lymphs (Manual) 0.23 L ABG pH ABG pCO2 ABG pO2 ABG HCO3 ABG O2 Saturation ABG O2 Content Oxyhemoglobin Total Hemoglobin Sodium 132 L 135 L Potassium Chloride 92 L Carbon Dioxide 36 H 36 H Anion Gap 1 L BUN 53 H D 34 H D Creatinine 0.53 L 0.41 L Glucose 151 H 149 H POC Capillary Glucose Lactic Acid Calcium C-Reactive Protein NT-Pro-B Natriuret Pep Albumin 3.2 L Urine Protein Urine Ketones 05/01/25 05/01/25 05/02/25 12:24 20:25 10:05 WBC 10.8 H RBC 2.82 L Hgb 7.0 L 7.2 L 7.9 L Hct 23.2 L 23.9 L 27.0 L MCHC 29.3 L RDW 19.4 H Plt Count Immature Gran % (Auto) 0.7 H Neut % (Auto) 93.7 H Lymph % (Auto) 3.7 L Garza % (Auto) 1.8 L Baso % (Auto) 0.1 L Lymph # (Auto) 0.40 L Abs Immat Gran (auto) 0.08 H Absolute Neuts (auto) 10.2 H Band Neutrophils % Lymphocytes % (Manual) Abs Neuts (Manual) Abs Lymphs (Manual) ABG pH ABG pCO2 ABG pO2 ABG HCO3 ABG O2 Saturation ABG O2 Content Oxyhemoglobin Total Hemoglobin Sodium Potassium Chloride Carbon Dioxide 32 H Anion Gap BUN 27 H Creatinine 0.44 L Glucose 179 H POC Capillary Glucose Lactic Acid Calcium C-Reactive Protein NT-Pro-B Natriuret Pep Albumin Urine Protein Urine Ketones 05/03/25 06:26 WBC RBC 2.71 L Hgb 7.7 L Hct 26.0 L MCHC 29.6 L RDW 19.1 H Plt Count Immature Gran % (Auto) 1.2 H Neut % (Auto) 91.4 H Lymph % (Auto) 4.6 L Garza % (Auto) Baso % (Auto) 0.0 L Lymph # (Auto) 0.38 L Abs Immat Gran (auto) 0.10 H Absolute Neuts (auto) 7.6 H Band Neutrophils % Lymphocytes % (Manual) Abs Neuts (Manual) Abs Lymphs (Manual) ABG pH ABG pCO2 ABG pO2 ABG HCO3 ABG O2 Saturation ABG O2 Content Oxyhemoglobin Total Hemoglobin Sodium 134 L Potassium Chloride Carbon Dioxide 33 H Anion Gap 3 L BUN 25 H Creatinine 0.42 L Glucose 127 H POC Capillary Glucose Lactic Acid Calcium 8.3 L C-Reactive Protein NT-Pro-B Natriuret Pep Albumin Urine Protein Urine Ketones Diagnostic Findings Additional studies: ITS Impressions Chest X-Ray 04/29/25 22:42 IMPRESSION: Chronic interstitial change with a small left-sided pleural effusion and adjacent compressive atelectasis. Head CT 04/30/25 00:16 Impression: Examination is markedly limited by a significant amount of motion artifact. No large acute intracranial hemorrhage or suspicious significant mass effect. Chest CTA 04/30/25 00:19 IMPRESSION: No pulmonary embolus. No thoracic aortic dissection. Post radiation change within the right upper lobe with increase in size of the cavitary consolidation. Left apical scarring. Interval development of patchy groundglass opacification of the bilateral lung bases. Severe panlobular emphysematous disease redemonstrated. Tree-in-bud opacification of right upper lobe, an interval change from prior. Interval increase in size of an irregular focus of decreased attenuation within segment 7 of the liver when compared with previous study dated 03/14/2025 for which a metastatic lesion is suspected. If needed, this area is accessible via percutaneous biopsy, if not already performed. Cervical Spine CT 04/30/25 00:39 Impression: Significant degenerative disease, without acute significantly displaced fractures, as detailed above
[2025-05-03] MEDS: POTASSIUM CHLORIDE 20 MEQ PACKET (FOR LIQUID) 40 MEQ FEED TUBE (11:11)
[2025-05-03 11:46] LABS: CRP 3.8 mg/dL (<1.0)
[2025-05-03 11:50] LABS: NT Pro B Type Natriuretic Pept 9930 pg/mL (19.9-100)
[2025-05-03] MEDS: MIDODRINE HCL 2.5 MG TABLET 5 MG FEED TUBE ×2 (12:55→18:05)
[2025-05-03 13:35] LABS: Alveolar/Arterial O2 Gradient 85.6 mmHg; Fractional Inspired Oxygen 28 %; HCO3 ABG 33.5 mEq/l (22.0-26.0); Oxygen Content ABG 13.2 %vol (16.0-22.0); Oxygen Saturation ABG 93.9 % (95.0-100.0); PCO2 ABG 43.2 mmHg (35.0-45.0); PO2 ABG 63.1 mmHg (80.0-100.0); PO2 FiO2 Ratio Arterial Blood 2.25 %
[2025-05-03 13:43] LABS: Liters per Minute 2.0 LPM; Modified Allen's Test Pass; Site Drawn LEFT RADIAL
--- NOTE | 2025-05-03 13:44 | PCRCNOTE ---
ABG results given to Perla Ross RN. She will call Dr. Wright with results.
--- NOTE | 2025-05-03 14:25 | PCOTNOTE ---
Attempted to see Patient this afternoon. Patient declined services at this time, states feeling to tired and weak, requested to come back tomorrow.
[2025-05-03 17:16] LABS: Procalcitonin 0.4 ng/mL
[2025-05-03] MEDS: LORazepam (*CRX) 1 MG TABLET 2 MG FEED TUBE (18:09)
--- NOTE | 2025-05-03 19:02 | PC.NURSE ---
This patient, Rogelio Kearney, was transferred to [facility] on 05/03/25 at 1842. Personal belongings sent with patient. Report given to AFSHAN Guillen. Appropriate documentation sent with patient.
[2025-05-03] MEDS: AZITHROMYCIN IV 500 MG in SODIUM CHLORIDE 0.9% IV 250 ML IVPB (20:26)
[2025-05-04] VITALS (14 sets, daily range): BP systolic 119–135; BP diastolic 68–85; PULSE 77–102; RESP 18–20; TEMP 36.5–36.8; O2SAT 86–96
[2025-05-04] MEDS: CEFEPIME 2 GM in SODIUM CHLORIDE 0.9% IV 50 ML 100 ML IVPB ×2 (01:40→09:06)
--- NOTE | 2025-05-04 03:55 | PCRCNOTE ---
0200 vest treatment held for apnea link testing
[2025-05-04] MEDS: CENTRAL LINE FLUSH 10 ML IV PUSH ×2 (05:00→13:33)
[2025-05-04 05:27] LABS: Hematocrit 28.3 % (42.0-52.0); Hemoglobin 8.6 g/dL (14.0-18.0); Mean Corpuscular HGB Conc 30.4 g/dl (32-36); Mean Corpuscular Hemoglobin 28.9 pg (26-34); Mean Corpuscular Volume 95.0 fl (80-100); Platelet Count Result 328 k/mm3 (150-375); Red Blood Count 2.98 M/mm3 (4.6-6.20); White Blood Count 8.8 K/mm3 (4.5-10.0)
[2025-05-04 05:36] LABS: Alanine Aminotransferase 27 U/L (6-50); Albumin Level 3.1 g/dL (3.5-5.1); Alkaline Phosphatase 90 U/L (38-126); Anion Gap 5 mmol/L (4-12); Aspartate Amino Transferase 27 U/L (17-59); Bilirubin,Total 0.5 mg/dL (0.2-1.3); Blood Urea Nitrogen 24 mg/dL (9-20); Calcium 8.5 mg/dL (8.4-10.2); Carbon Dioxide 32 mmol/L (22-30); Chloride 98 mmol/L (98-107); Estimated CRCL calculation 114 ml/min; Estimated Glomerular Filt Rate > 60; Glucose 81 mg/dL (65-110); Potassium 3.6 mmol/L (3.4-5.0); Sodium 135 mmol/L (137-145); Total Protein 6.0 g/dL (6.3-8.2)
--- NOTE | 2025-05-04 08:23 | PM.PNPUL ---
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 Tobacco use 2 packs a day for 50 years quit 10/29/2024, total pack years 100. On a good day walks with a walker around his house. Patient tells me he uses 3 L at rest and with activity and 2 L at night. Maintained on trelegy and p.r.n. rescue albuterol nebulizers. Tells me he had pneumonia and the flu in October of 2024 and that is when they started the oxygen. He had the pneumonia and the flu in December of 2024. 04/29/2023: Patient presented to the emergency department with shortness of breath, weakness, fall, cough. EMS found him on 3 L nasal cannula saturations in the 50s. He was placed on 15 L non-rebreather with saturations 80. In the emergency department blood pressure 102/66, heart rate 105, respirations 21, non-rebreather 10 L saturation 95%. ABG on 15 L non-rebreather 7.32/76/61. Patient placed on high-flow nasal cannula for 35 L and 45% FiO2 with saturations 90%. White blood cell count 7.3 with eosinophils 2.7, creatinine 0.41, BNP 1780, CRP 7.6, COVID influenza RSV RT PCR assay negative, MRSA swab negative. CT angiogram of the chest showed no PE, right upper lobe consolidation with increasing cavity size compared to 03/14/2025, new consolidative infiltrate posterior segment right upper lobe, new patchy infiltrate anterior segment right upper lobe, unchanged right lower lobe basilar infiltrate, more densely consolidated left lower lobe infiltrate. increasing size of liver hypo dense irregular focus to 15.5 x 17.3 mm and has increased from 9 x 13.5 mm. Patient started on Solu-Medrol, ceftriaxone and azithromycin. Ceftriaxone changed to cefepime. 04/30/2025: A.m.: Airvo 40 L, 45% FiO2 saturations 97% 05/01/2025: 8:00 a.m. Airvo 35 L, 45% FiO2 saturations 92% 05/02/2025: 8:00 a.m. Airvo 45 L, 45% FiO2, saturation 98% 05/03/2025: Currently the patient tells me he is back to normal. His cough is the same as usual. He produces thin clear phlegm and this is at his baseline. When I enter the room he was on 3 L nasal cannula saturations 97%. I decreased him to 2 L nasal cannula his saturations were 92%. White blood cell count 8.3, creatinine 0.42. CRP is decreased from 7.6 on 04/29/2025. BNP has increased to 9930 today. Yesterday he was 1.3 L positive in cumulative since admission he is 1.8 L positive. weight is 67.1 with an admission weight of 61.5. Plan: Patient has improved. He is on Solu-Medrol 60 Q 8 he, day 4 of steroids. He is on DuoNebs q.6 hours as well as trelegy 100. He is having some difficulty expectorating. He is being treated for possible pneumonia with cefepime and azithromycin, both day 4. He has received his trelegy 100 today. I will discontinue DuoNebs. I will discontinue IV Solu-Medrol and place him on prednisone 40 mg p.o. on 05/04/2025. I will add guaifenesin liquid 400 mg per tube q.i.d. I will order an ABG to reassess for hypercarbic respiratory failure. I will order an alpha 1 anti trypsin genotype and level. I have ordered an extended respiratory pathogen panel. Urine for Legionella, urine for pneumococcal and serum IgM for mycoplasma are pending. I will order an overnight oximetry on 2 L nasal cannula to assess for nocturnal hypoxia. If the above testing is unremarkable, patient may be able to be discharged on 05/04/2025. Later in the day patient had an ABG on 2 L nasal cannula the pH is 7.51/43/63. Chest x-ray with continued interstitial infiltrates related to pneumonia and or cancer. 05/04/2025: Patient states he is breathing at his baseline. He denies shortness of breath. He is walking around the room and says his dyspnea on exertion is at his baseline. He denies fever, chills, rigors. He has a cough with baseline productive phlegm. Patient is on 2 L nasal cannula saturations 95%. He is afebrile. White blood cell count 8.8, creatinine 0.45. Yesterday was -1 L, cumulative since admission he is positive 407 mL. His weight today is 69.9. Patient had an overnight oximetry on 2 L nasal cannula with recording duration of 7 hours and 7 minutes. Average saturation 94%. Low saturation 84%. Time with saturation less than or equal to 88% was 12 minutes. Oxygen desaturation index 0.5. Patient feels ready for discharge today. Plan: No evidence of a hypercarbic respiratory failure on repeat blood gas. Patient is scheduled to receive prednisone 40 mg today which will be day 5 of steroids and will discontinue. Patient has completed 5 days of azithromycin. He is on day 5 of cefepime. Mycoplasma IgM normal at less than 770. Urine Legionella, urine pneumococcal antigens and respiratory pathogen panel pending. Patient with hypoxia at night on 2 L nasal cannula. From a pulmonary perspective patient is ready to be discharged on these pulmonary medications. Levaquin 750 mg per tube q.day x5 days trelegy 100 - 62.5-25 at 1 puff q.day Albuterol nebulizer 2.5 mg q.4 hours p.r.n. shortness of breath or wheezing guaifenesin 400 mg per tube q.6 hours p.r.n. congestion oxygen at rest and with activity per formal home O2 assessment which I have ordered. when he naps or sleeps oxygen 3 L nasal cannula. No specific pulmonary follow-up required. Follow-up with PCP and oncologist. Discussed with Dr. Vazquez, will sign off, call with questions. (2) Lung cancer: Code(s): C34.90 - Malignant neoplasm of unspecified part of unspecified bronchus or lung Status: Acute Assessment and Plan: From l oncology note 01/13/25: CT scan chest was performed on 12/24/2024 which showed a 4 x 4 x 4 cm regular hypodense masslike lesion in the medial right lung apex extending into the superior mediastinum. This mass was mildly increased from prior his prior exam on 11/12/2024. Also noted with Passy bibasilar predominant consolidation and ground-glass opacities with tree-in-bud opacities concerning for infection-inflammatory process. He underwent EBUS on 12/31/[address] [facility] consistent with squamous cell carcinoma. Patient was seen by radiation oncologist. PET scan scheduled 01/19/2025 and brain MRI 01/25/2025. Tumor board discussion and if patient can tolerate concurrent chemotherapy. Radiation oncology note 03/18/2025. PMHX: Prostate cancer: March 2019 he completed definitive moderately hypo fractionated prostate radiation utilizing the mat arc based IMRT on 06/21/2022. Recommended 4-6 months of ADT given the Lima 4 + 3 histology and rapidly rising PSA however he refused. Presented to urgent care in October of 2024 with cough and COPD at outside hospital workup revealed right upper lobe mass and biopsies were consistent with cysts non-small cell carcinoma of the lung and he was referred here for further evaluation and management. Patient is planned to receive external beam radiation with concurrent chemotherapy. Completed fractions to cumulative dose of 5200 cGy in 37 elapsed days. Plan continue treatments. 05/03/25: The patient tells me he finished his chemotherapy and radiation treatment on 03/28/2025. Repeat CT scan done by his oncologist is reported by the patient has stable right upper lobe but worsening right lower lobe consistent with cancer. Plan: He will follow-up with Oncology on 05/10/2025 with a plan for additional chemotherapy. 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 Tobacco use 2 packs a day for 50 years quit 10/29/2024, total pack years 100. On a good day walks with a walker around his house. Patient tells me he uses 3 L at rest and with activity and 2 L at night. Maintained on trelegy and p.r.n. rescue albuterol nebulizers. Tells me he had pneumonia and the flu in October of 2024 and that is when they started the oxygen. He had the pneumonia and the flu in December of 2024. Oncology note 01/13/2025: CT scan chest was performed on 12/24/2024 which showed a 4 x 4 x 4 cm regular hypodense masslike lesion in the medial right lung apex extending into the superior mediastinum. This mass was mildly increased from prior his prior exam on 11/12/2024. Also noted with Passy bibasilar predominant consolidation and ground-glass opacities with tree-in-bud opacities concerning for infection-inflammatory process. He underwent EBUS on 12/31/[address] [facility] consistent with squamous cell carcinoma. Patient was seen by radiation oncologist. PET scan scheduled 01/19/2025 and brain MRI 01/25/2025. Tumor board discussion and if patient can tolerate concurrent chemotherapy. Radiation oncology note 03/18/2025. PMHX: Prostate cancer: March 2019 he completed definitive moderately hypo fractionated prostate radiation utilizing the mat arc based IMRT on 06/21/2022. Recommended 4-6 months of ADT given the Lima 4 + 3 histology and rapidly rising PSA however he refused. Presented to urgent care in October of 2024 with cough and COPD at outside hospital workup revealed right upper lobe mass and biopsies were consistent with cysts non-small cell carcinoma of the lung and he was referred here for further evaluation and management. Patient is planned to receive external beam radiation with concurrent chemotherapy. Completed 03/12/2030 fractions to cumulative dose of 5200 cGy in 37 elapsed days. Plan continue treatments. 04/01/2025: Peg tube placed via EGD. 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 He had odynophagia post radiation therapy and while in the hospital he had G-tube placed due to malnutrition. complains of upper back and neck pain. Denies any radiation/numbness/tingling On 2 L of oxygen at night and 3 L with exertion weight 127 lb. Plan: COPD, stable on trelegy, 2 L at night and 3 with exertion. new compression fractures T1 and T2 possibly related to osteoporosis, post radiation, neoplastic involvement referred pain medicine, talked to Oncology. Orthostatic hypotension: Drop in blood pressure when he is standing, he is asymptomatic, advised him to use compression stockings, maintain hydration and will start him on mid hurting 2.5 t.i.d.. 04/29/2023: Patient presented to the emergency department with shortness of breath, weakness, fall, cough. EMS found him on 3 L nasal cannula saturations in the 50s. He was placed on 15 L non-rebreather with saturations 80. In the emergency department blood pressure 102/66, heart rate 105, respirations 21, non-rebreather 10 L saturation 95%. ABG on 15 L non-rebreather 7.32/76/61. Patient placed on high-flow nasal cannula for 35 L and 45% FiO2 with saturations 90%. White blood cell count 7.3 with eosinophils 2.7, creatinine 0.41, BNP 1780, CRP 7.6, COVID influenza RSV RT PCR assay negative, MRSA swab negative. CT angiogram of the chest showed no PE, right upper lobe consolidation with increasing cavity size compared to 03/14/2025, new consolidative infiltrate posterior segment right upper lobe, new patchy infiltrate anterior segment right upper lobe, unchanged right lower lobe basilar infiltrate, more densely consolidated left lower lobe infiltrate. increasing size of liver hypo dense irregular focus to 15.5 x 17.3 mm and has increased from 9 x 13.5 mm. Patient started on Solu-Medrol, ceftriaxone and azithromycin. Ceftriaxone changed to cefepime. 04/30/2025: A.m.: Airvo 40 L, 45% FiO2 saturations 97% 05/01/2025: 8:00 a.m. Airvo 35 L, 45% FiO2 saturations 92% 05/02/2025: 8:00 a.m. Airvo 45 L, 45% FiO2, saturation 98% 05/03/2025: Currently the patient tells me he is back to normal. His cough is the same as usual. He produces thin clear phlegm and this is at his baseline. When I enter the room he was on 3 L nasal cannula saturations 97%. I decreased him to 2 L nasal cannula his saturations were 92%. White blood cell count 8.3, creatinine 0.42. CRP is decreased from 7.6 on 04/29/2025. BNP has increased to 9930 today. Yesterday he was 1.3 L positive in cumulative since admission he is 1.8 L positive. weight is 67.1 with an admission weight of 61.5. The patient tells me he finished his chemotherapy and radiation treatment on 03/28/2025. Repeat CT scan done by his oncologist is reported by the patient has stable right upper lobe but worsening right lower lobe consistent with cancer. He will follow-up with Oncology on 05/10/2025 with a plan for additional chemotherapy. Later in the day patient had an ABG on 2 L nasal cannula the pH is 7.51/43/63. 05/04/2025: Patient states he is breathing at his baseline. He denies shortness of breath. He is walking around the room and says his dyspnea on exertion is at his baseline. He denies fever, chills, rigors. He has a cough with baseline productive phlegm. Patient is on 2 L nasal cannula saturations 95%. He is afebrile. White blood cell count 8.8, creatinine 0.45. Yesterday was -1 L, cumulative since admission he is positive 407 mL. His weight today is 69.9. Patient had an overnight oximetry on 2 L nasal cannula with recording duration of 7 hours and 7 minutes. Average saturation 94%. Low saturation 84%. Time with saturation less than or equal to 88% was 12 minutes. Oxygen desaturation index 0.5. Patient feels ready for discharge today. DATA: 04/30/25 EXAMINATION: CTA chest PE protocol INDICATION: Shortness of breath. Patient with a recent diagnosis of lung cancer currently undergoing radiation treatment, on 2 L of oxygen at night and 3 L of oxygen at home with exertion. Prior history of head and neck cancer post radiation more than 20 years earlier. COMPARISON: 03/14/2025 FINDINGS/OBSERVATIONS: PULMONARY ARTERIES: No filling defect is identified within the main or proximal pulmonary artery. The main pulmonary artery is markedly enlarged, unchanged. THORACIC AORTA: No aneurysmal dilatation or dissection is present. The great vessels are intact LUNGS: Left apical scarring. Dense cavitary consolidation of the medial segment of the right upper lobe, likely post radiation change. Interval development patchy groundglass opacification of the bilateral lung bases. Panlobular emphysematous change redemonstrated. Tree-in-bud opacification of the right upper lobe, an interval change from prior. MEDIASTINUM: No morphologically suspicious or pathologically enlarged lymph nodes are identified within the mediastinum or bilateral axilla. BONES OF THE CHEST: Diffuse bony demineralization. Redemonstration of Ovalle rods. Prior anterior wedge compression of T1 and T2 (to a lesser degree) and T12. No lytic or blastic lesions appreciated. HEART: The heart is significantly enlarged, unchanged, without pericardial effusion. Upper abdomen: Interval increase in size of an irregular focus of decreased attenuation within segment 7 of the liver (axial series, image 268). This area measures 15.5 x 17.3 mm and has increased from 9 x 13.5 mm on the previous study dated 03/14/2025. Redemonstration of a flash filling hemangioma within segment 2/3 of the liver. Multiple stones within the gallbladder. Interval placement of a percutaneous gastrostomy since prior study. IMPRESSION: No pulmonary embolus. No thoracic aortic dissection. Post radiation change within the right upper lobe with increase in size of the cavitary consolidation. Left apical scarring. Interval development of patchy groundglass opacification of the bilateral lung bases. Severe panlobular emphysematous disease redemonstrated. Tree-in-bud opacification of right upper lobe, an interval change from prior. Interval increase in size of an irregular focus of decreased attenuation within segment 7 of the liver when compared with previous study dated 03/14/2025 for which a metastatic lesion is suspected. If needed, this area is accessible via percutaneous biopsy, if not already performed. From Oncology note: CT scan chest was performed on 12/24/2024 which showed a 4 x 4 x 4 cm regular hypodense masslike lesion in the medial right lung apex extending into the superior mediastinum. This mass was mildly increased from prior his prior exam on 11/12/2024. Also noted with Passy bibasilar predominant consolidation and ground-glass opacities with tree-in-bud opacities concerning for infection-inflammatory process. Review of Systems Constitutional: Constitutional: Reports no additional constitutional complaints Eyes: Eyes: Reports no additional eye complaints ENT: Reports system reviewed and no additional complaints, except as documented Cardiovascular: Cardiovascular: Reports no additional cardiovascular complaints Respiratory: Respiratory: Reports no additional respiratory complaints Gastrointestinal: Gastrointestinal: Reports no additional gastrointestinal complaints Musculoskeletal: Musculoskeletal: Reports no additional musculoskeletal complaints Neurologic: Reports system reviewed and no additional complaints, except as documented Psychiatric: Psychiatric: Reports no additional psychiatric complaints Endocrine: Endocrine: Reports no additional endocrine complaints Hematologic/Lymphatic: Hematologic/Lymphatic: Reports no additional hematologic/lymphatic complaints Allergic/Immunologic: Allergic/Immunologic: Reports no additional allergic/immunologic complaints Exam Const: General: cooperative and comfortable Orientation/consciousness: oriented to person, oriented to place and oriented to time Other: very thin, very soft of obese after his treatment for throat cancer. HENMT: Head: normal to inspection Ears: hearing grossly normal bilaterally Eyes: General: appearance normal, both eyes and all related structures Neck: Neck: normal visual inspection Chest: Chest palpation & inspection: normal inspection of the chest Resp: Effort & Inspection: normal respiratory effort and able to speak in complete sentences Auscultation: no crackles, no rales, no rhonchi, no wheezes and diminished lung sounds Cardio: Jugular venous distension: no JVD GI: Inspection: normal to inspection Skin: General skin exam: normal color Neuro: General: oriented to person, oriented to place and oriented to time Extrem: General: normal to inspection and no edema Psych: Appearance: grossly normal Objective Data Vital Signs Vital Signs: Vital Signs - 24 hr 05/03/25 08:25 05/03/25 10:00 05/03/25 10:20 Temperature Pulse Rate 97 86 95 Respiratory Rate 16 20 Blood Pressure Pulse Oximetry 96 Oxygen Delivery High Flow Nasal Cannula Oxygen Flow Rate 3 05/03/25 11:37 05/03/25 12:00 05/03/25 12:00 Temperature 36.3 C L Pulse Rate 90 107 H Respiratory Rate 16 Blood Pressure 128/76 Pulse Oximetry 92 97 Oxygen Delivery High Flow Nasal Cannula Oxygen Flow Rate 2 05/03/25 13:14 05/03/25 14:00 05/03/25 15:34 Temperature 36.7 C Pulse Rate 91 86 94 Respiratory Rate 16 Blood Pressure 141/84 H Pulse Oximetry 94 95 Oxygen Delivery Oxygen Flow Rate 2 05/03/25 16:52 05/03/25 20:00 05/03/25 20:00 Temperature Pulse Rate 88 94 Respiratory Rate Blood Pressure Pulse Oximetry 93 Oxygen Delivery High Flow Nasal Cannula Oxygen Flow Rate 2 05/03/25 20:37 05/03/25 21:45 05/03/25 21:46 Temperature 36.8 C Pulse Rate 88 86 86 Respiratory Rate 20 18 18 Blood Pressure 140/87 Pulse Oximetry 92 95 Oxygen Delivery Oxygen Flow Rate 2 05/04/25 00:00 05/04/25 00:00 05/04/25 04:00 Temperature 36.5 C Pulse Rate 80 85 77 Respiratory Rate 20 Blood Pressure 135/85 Pulse Oximetry 95 Oxygen Delivery Oxygen Flow Rate Intake/Output Intake/Output: Intake & Output 05/01/25 05/02/25 05/03/25 05/04/25 23:59 23:59 23:59 23:59 Intake Total 2400 2708.3 400 Output Total 501 1150 1400 975 Balance 1899 1558.3 -1000 -975 Meds/Results Medications: Active Medications Generic Name Dose Route Start Last Admin Trade Name Freq PRN Reason Stop Dose Admin Acetaminophen 650 mg 05/03/25 10:25 Acetaminophen 325 Mg Tablet FEED TUBE Q4H PRN Mild Pain (1-3) or Fever Albuterol/Ipratropium 3 ml 05/03/25 14:06 Ipratropium 0.5 Mg/Albuterol Sulfate 2.5 Mg Ampul.Neb 3 Ml INHALATION Q4HRT PRN Wheezing Clotrimazole 10 mg 04/30/25 09:00 05/03/25 18:10 Clotrimazole 10 Mg Troc MUCOUS MEM 10 mg TID VAMSI Administration Fluticasone/Umeclidinium/Vilanterol 1 puff 04/30/25 08:00 05/03/25 08:18 Fluticasone/Umeclidin/Vilanter 100-62.5-25 Mcg Ellipta INHALATION 1 puff DAILYRT VAMSI Administration Guaifenesin 400 mg 05/03/25 13:00 05/04/25 05:00 Guaifenesin 200 Mg/10 Ml Udc FEED TUBE 400 mg Q4HR VAMSI Administration Heparin Sodium (Beef Lung) 50 units 04/30/25 09:00 05/03/25 09:00 Heparin Flush 50 Units/5 Ml Syringe IV PUSH 50 units QAM VAMSI Administration Heparin Sodium (Beef Lung) 50 units 04/30/25 04:13 Heparin Flush 50 Units/5 Ml Syringe IV PUSH PRN PRN after intermittent infusion Heparin Sodium (Beef Lung) 50 units 04/30/25 04:13 Heparin Flush 50 Units/5 Ml Syringe IV PUSH PRN PRN after blood draws Heparin Sodium (Porcine) 500 units 04/30/25 04:13 Heparin Sodium Lock Flush 500 Units/5 Ml Syringe IV PUSH PRN PRN see comments below Cefepime HCl 2 gm/ Sodium 50 mls @ 100 mls/hr 04/30/25 10:00 05/04/25 01:40 Chloride IVPB 100 mls/hr Q8H VAMSI Administration Lorazepam 2 mg 05/03/25 10:25 05/03/25 18:09 Lorazepam (*Crx) 1 Mg Tablet FEED TUBE 2 mg BID PRN Administration Anxiety Midodrine 5 mg 05/03/25 13:00 05/03/25 18:05 Midodrine Hcl 2.5 Mg Tablet FEED TUBE 5 mg TID VAMSI Administration Morphine Sulfate 2 mg 04/30/25 01:42 Morphine Sulfate (*Crx) 2 Mg/Ml Inj IV PUSH Q2H PRN Pain Rated 7-10 Home Med (Phenelzine 15 mg 04/30/25 17:00 05/03/25 18:09 15 Mg Tablet) PO 05/30/25 16:59 15 mg TID VAMSI Administration Ondansetron HCl 4 mg 04/30/25 01:42 Ondansetron Inj 4 Mg/2 Ml Vial IV PUSH Q4H PRN Nausea Perflutren Lipid Microsphere 0 ml 05/03/25 11:52 Perflutren Lipid Microspheres 1.5 Ml Vial Diluted To 10 Ml Total Volume IV PUSH 05/06/25 11:52 ONCE PRN adequate visualization Protocol Prednisone 40 mg 05/04/25 08:00 Prednisone 20 Mg Tablet FEED TUBE DAILY@0800 [facility] Sodium Chloride 10 ml 04/30/25 06:00 05/04/25 05:00 Central Line Flush IV PUSH 10 ml Q8HR VAMSI Administration Radiology Results: ITS Impressions Head CT 04/30/25 00:16 Impression: Examination is markedly limited by a significant amount of motion artifact. No large acute intracranial hemorrhage or suspicious significant mass effect. Chest CTA 04/30/25 00:19 IMPRESSION: No pulmonary embolus. No thoracic aortic dissection. Post radiation change within the right upper lobe with increase in size of the cavitary consolidation. Left apical scarring. Interval development of patchy groundglass opacification of the bilateral lung bases. Severe panlobular emphysematous disease redemonstrated. Tree-in-bud opacification of right upper lobe, an interval change from prior. Interval increase in size of an irregular focus of decreased attenuation within segment 7 of the liver when compared with previous study dated 03/14/2025 for which a metastatic lesion is suspected. If needed, this area is accessible via percutaneous biopsy, if not already performed. Cervical Spine CT 04/30/25 00:39 Impression: Significant degenerative disease, without acute significantly displaced fractures, as detailed above Chest X-Ray 05/03/25 13:19 Impression: 1: Progression of diffuse bilateral airspace disease which may represent edema and/or pneumonia. Labs Labs: Laboratory Results - last 24 hr 04/30/25 05/03/25 05/03/25 17:59 06:26 13:29 WBC RBC Hgb Hct MCV MCH MCHC RDW Plt Count MPV Puncture Site Left radial ABG pH 7.507 H* ABG pCO2 43.2 ABG pO2 63.1 L ABG PO2/FiO2 Ratio 2.25 ABG HCO3 33.5 H ABG O2 Saturation 93.9 L ABG O2 Content 13.2 L ABG Base Excess 9.5 A-a Gradient 85.6 Oxyhemoglobin 92.5 Total Hemoglobin 10.1 L O2 Delivery Device Nasal cannula O2 Liters/Min 2.0 FiO2 28 Sodium Potassium Chloride Carbon Dioxide Anion Gap BUN Creatinine Estim Creat Clear Calc Estimated GFR Glucose Calcium Total Bilirubin AST ALT Alkaline Phosphatase C-Reactive Protein 3.8 H NT-Pro-B Natriuret Pep 9930 H Total Protein Albumin Procalcitonin 0.4 M.pneumoniae IgM Titer <770 05/04/25 04:59 WBC 8.8 RBC 2.98 L Hgb 8.6 L Hct 28.3 L MCV 95.0 MCH 28.9 MCHC 30.4 L RDW 19.4 H Plt Count 328 MPV 9.4 Puncture Site ABG pH ABG pCO2 ABG pO2 ABG PO2/FiO2 Ratio ABG HCO3 ABG O2 Saturation ABG O2 Content ABG Base Excess A-a Gradient Oxyhemoglobin Total Hemoglobin O2 Delivery Device O2 Liters/Min FiO2 Sodium 135 L Potassium 3.6 Chloride 98 Carbon Dioxide 32 H Anion Gap 5 BUN 24 H Creatinine 0.45 L Estim Creat Clear Calc 114 Estimated GFR > 60 Glucose 81 Calcium 8.5 Total Bilirubin 0.5 AST 27 ALT 27 Alkaline Phosphatase 90 C-Reactive Protein NT-Pro-B Natriuret Pep Total Protein 6.0 L Albumin 3.1 L Procalcitonin M.pneumoniae IgM Titer
[2025-05-04] MEDS: CLOTRIMAZOLE 10 MG TROC MUCOUS MEM ×2 (08:58→13:32)
[2025-05-04] MEDS: MIDODRINE HCL 2.5 MG TABLET 5 MG FEED TUBE ×2 (08:58→13:32)
[2025-05-04] MEDS: IPRATROPIUM 0.5 MG/ALBUTEROL SULFATE 2.5 MG AMPUL.NEB 3 ML INHALATION (08:59)
--- NOTE | 2025-05-04 09:11 | PCOTNOTE ---
The patient treatment was not able to be completed reparatory and RN in the room this time . Will plan to continue treatment per plan of care.
[2025-05-04] MEDS: LORazepam (*CRX) 1 MG TABLET 2 MG FEED TUBE (09:12)
[2025-05-04] MEDS: PHENELZINE 15 MG 15 EACH PO ×2 (09:12→13:33)
--- NOTE | 2025-05-04 09:48 | PCRCNOTE ---
Home O2 eval done, pt requires 2 liters rest, 3 activity, 3 nocturnal. Pt has [place]. Son will bring in POC at D/C
--- NOTE | 2025-05-04 09:49 | HOMEO2EVAL ---
Evaluation was performed at [facility] Home Oxygen Evaluation RC: Home Oxygen (O2) Evaluation Start: 05/04/25 08:20 Freq: ONCE Status: Active Protocol: RPE Activity Type Activity Date Activity User E-sign Co-sign Detail Recorded Client Recorded Date Recorded By Document 05/04/25 09:30 STARLA [email or web address] 05/04/25 09:47 STARLA Document 05/04/25 09:31 STARLA [email or web address] 05/04/25 09:47 STARLA Document 05/04/25 09:33 STARLA [id number] 05/04/25 09:47 STARLA Document 05/04/25 09:34 STARLA [id number] 05/04/25 09:47 STARLA Document 05/04/25 09:40 STARLA [id number] 05/04/25 09:47 STARLA 05/04/25 05/04/25 05/04/25 09:30 09:31 09:33 Home O2 Evaluation [Oxygen] -Test Phase Resting Resting Exercise -Oxygen Delivery Room Air Nasal Cannula Nasal Cannula -Oxygen Flow Rate (L/min) 2 2 [Pulse Oximetry] -Pulse Oximetry (90-100 %) 86 L 91 88 L [Pulse Rate] -Pulse Rate (60-100 beats/min) 93 [Comments] -Home Oxygen Evaluation Comments [Charges] -Evaluation Charges O2 Evaluation by Pulmonary 05/04/25 05/04/25 09:34 09:40 Home O2 Evaluation [Oxygen] -Test Phase Exercise Resting -Oxygen Delivery Nasal Cannula Nasal Cannula -Oxygen Flow Rate (L/min) 3 2 [Pulse Oximetry] -Pulse Oximetry (90-100 %) 92 93 [Pulse Rate] -Pulse Rate (60-100 beats/min) 102 H 93 [Comments] -Home Oxygen Evaluation Comments Pt requires 2 liters at rest and 3 liters with activity [Charges] -Evaluation Charges
--- NOTE | 2025-05-04 11:52 | ECHO_ITS ---
Patient Info Name: Rogelio Kearney Age: 74 years : 1950 Gender: Male Ht: 72 in Wt: 147 lbs BSA: 1.83 m2 HR: 93 bpm BP: 135 / 85 mmHg Technical Quality: Good Exam Date: 05/04/2025 3:09 PM Patient Status: unknown Admit Date: 04/30/2025 Exam Type: CA echo doppler color flow Complete two-dimensional, color flow and Doppler transthoracic echocardiogram is performed. Staff Referring Physician: Solomon Kasper Airport Driver: Bethany Walker Attending Provider: Neida Velez Summary 1. Complete two-dimensional, color flow and Doppler transthoracic echocardiogram is performed. 2. Left ventricular chamber dimension is normal. 3. Left ventricular systolic function is normal, estimated at 60-65. 4. The left ventricular diastolic function is grade I diastolic dysfunction. 5. E/e' 8 is minimally elevated. 6. There is mild aortic valve sclerosis. 7. There is mild mitral valve regurgitation. 8. There is trace tricuspid valve regurgitation. Left Ventricle E/e' 8 is minimally elevated. Left ventricular chamber dimension is normal. Left ventricular systolic function is normal, estimated at 60-65. The left ventricular diastolic function is grade I diastolic dysfunction. Right Ventricle Right ventricular chamber dimension is normal. Right ventricular systolic function is normal and with normal TAPSE 2.3 cm. Left Atria Left atrial chamber dimension is normal. Right Atria Right atrial chamber dimension is normal. Aortic Valve The aortic valve is trileaflet. There is mild aortic valve sclerosis. There is no aortic valve stenosis. There is no aortic valve regurgitation. Pulmonic Valve There is no pulmonic regurgitation. Mitral Valve There is no mitral valve stenosis. There is mild mitral valve regurgitation. Tricuspid Valve There is trace tricuspid valve regurgitation. RVSP is not measured due to an inadequate TR jet. Pericardium/Pleural There is no pericardial effusion. Inferior Vena Cava Normal inferior vena cava with >50% collapse upon inspiration consistent with normal right atrial pressure, 5 mmHg. Aorta The aortic root size at the sinus of Valsalva is normal. Left Ventricular Outflow Tract Name Value Normal LVOT 2D LVOT Diameter 2.0 cm LVOT Doppler LVOT Peak Velocity 122 cm/s LVOT Peak Gradient 6 mmHg LVOT Mean Gradient 3 mmHg LVOT VTI 26 cm LVOT Stroke Volume 80 ml LVOT CO 7.4 l/min LVOT CI 4.1 l/min/m2 Pulmonic Valve Name Value Normal RVOT Doppler RVOT Peak Velocity 66 cm/s RVOT Peak Gradient 2 mmHg PV Doppler PV Peak Velocity 108 cm/s PV Peak Gradient 5 mmHg Mitral Valve Name Value Normal MV Diastolic Function MV E Peak Velocity 71 cm/s MV A Peak Velocity 108 cm/s MV E/A 0.7 MV Decel Time (PW) 390 ms MV Annular TDI MV E/e' (Septal) 9.9 MV E/e' (Lateral) 7.7 MV E/e' (Average) 8.8 Tricuspid Valve Name Value Normal Estimated PAP/RSVP RA Pressure 5 mmHg <=5 Aortic Valve Name Value Normal AV Doppler AV Peak Velocity 156 cm/s AV Peak Gradient 10 mmHg AV Area (Cont Eq John) 2.4 cm2 AV DI (John) 0.78 AV Regurgitation 2D LVOT Area 3.1 cm2 Ventricles Name Value Normal LV Dimensions 2D/MM IVS Diastolic Thickness (2D) 0.8 cm 0.6-1.0 LVID Diastole (2D) 4.1 cm 4.2-5.8 LVIW Diastolic Thickness (2D) 0.7 cm 0.6-1.0 LVID Systole (2D) 2.8 cm 2.5-4.0 LVOT Diameter 2.0 cm LV Mass (2D Cubed) 89.76 g 88.00-224.00 LV Mass Index (2D Cubed) 49 g/m2 49-115 Relative Wall Thickness (2D) 0.33 <=0.42 LV Fractional Shortening/Ejection Fraction 2D/MM LV Fractional Shortening (2D) 32 % 25-43 LV EF (2D Teichbeatricez) 61 % LV Diastolic Volume (4C MOD) 122 ml LV EF (4C MOD) 59 % LV Diastolic Volume (2C MOD) 105 ml LV EF (2C MOD) 54 % LV Diastolic Volume (BP MOD) 115 ml 62-150 LV Diastolic Volume Index (BP MOD) 63 ml/m2 34-74 LV Systolic Volume (BP MOD) 50 ml 21-61 LV Systolic Volume Index (BP MOD) 28 ml/m2 11-31 LV EF (BP MOD) 56 % 52-72 LV Diastolic Length (4C) 9.1 cm LV Systolic Length (4C) 7.5 cm LV Stroke Volume (4C MOD) 72 ml Atria Name Value Normal LA Dimensions LA Volume (4C A-L) 29 ml LA Volume (BP A-L) 36 ml RA Dimensions RA Systolic Major [place] Length (4C) 4.9 cm 2.1-2.7 RA Area (4C) 12.6 cm2 <=18.0 Report Signatures
--- NOTE | 2025-05-04 11:57 | PM.DS ---
DS: Admitting Diagnosis Discharge Date 05/04/2025 Admitting Diagnosis Shortness of breath DS: Discharge Diagnosis Discharge Diagnosis (1) Sepsis without septic shock: Code(s): A41.9 - Sepsis, unspecified organism Status: Acute Assessment and Plan: With end-organ damage as evidence by minus of breath, hypoxia, low blood pressure responsive to IV fluids, tachycardia. WBC 1.3 on admission, rising to 11.7 on 05/17. Stable on 05/01/2025 Resume [employer] midodrine 04/29/2025 blood culture, pending Follow-up sputum culture 05/02/2025: Blood pressure improved, continue midodrine. Discontinue fluids. Treat pneumonia and cellulitis (2) Cellulitis: Code(s): L03.90 - Cellulitis, unspecified Status: Acute Assessment and Plan: Erythema and purulent drainage from the PEG tube orifice. Abdomen soft, nontender otherwise. Cefepime started on 04/30/2025 05/01/2025: Erythema improving (3) Pneumonia: Code(s): J18.9 - Pneumonia, unspecified organism Status: Acute Assessment and Plan: Shortness of breath, cough with productive sputum, hypoxia on admission. Receive 1 dose of vancomycin. MRSA nares negative. Chronic dysphagia due to previous tonsillectomy related to cancer. Continue chest physiotherapy Continue cefepime and azithromycin Sputum culture. Legionella pneumococcal and mycoplasma studies. Resume [employer] clotrimazole troches (4) Acute and chronic respiratory failure with hypercapnia: Code(s): J96.22 - Acute and chronic respiratory failure with hypercapnia Status: Acute Assessment and Plan: Placed on non-rebreather on presentation in the ER, now on high-flow nasal cannula. Patient feeling much better. Titrate per protocol. Quad viral screen negative (5) Anemia: Code(s): D64.9 - Anemia, unspecified Status: Acute Assessment and Plan: Hemoglobin 7.8 on admission, down to 7.0. 05/01/2025: Hemoglobin stable at 7.0. Patient was to recheck at 8 p.m.. He is amenable to transfusion for hemoglobin less than 7. 05/02/2025: Hemoglobin stable. Check stool occult. Patient denies dark stool, bright red blood per rectum. (6) COPD exacerbation: Code(s): J44.1 - Chronic obstructive pulmonary disease with (acute) exacerbation Status: Acute Assessment and Plan: ABG on admission with hypercapnia. Continue nebulizer treatments, Solu-Medrol. 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 Ponce, GERD, hyperlipidemia, COPD, prior tobacco abuse quit 10/2024, depression with anxiety, arthritis presents to [facility] ER on 04/30/2025 as he was having shortness of breath. In the ER he was afebrile with tachypnea and tachycardia and was placed on a non-rebreather, later changed to a high-flow nasal cannula. Given DuoNeb treatment. He had mild lactic acid elevation and was given 2 L fluid bolus. It appears at some point he was given Lasix although. Hyperkalemia, given calcium gluconate and high-dose albuterol, dextrose and insulin. CRP elevated, BNP elevated. Started on vancomycin ceftriaxone and azithromycin. Given Solu-Medrol 125 mg IV x1. Upon repeat evaluation he is on high-flow nasal cannula, does not complain of any symptoms moment, endorses a new cough and while in the room coughing muddy brown/yellow sputum. He also has drainage from his PEG orifice. Assumed care at 05/03: In regards to Lung cancer: Pt finished his chemotherapy and radiation treatment on 03/28/2025. Repeat CT scan done by his oncologist is reported by the patient has stable right upper lobe but worsening right lower lobe consistent with cancer. He will follow-up with Oncology on 05/10/2025 with a plan for additional chemotherapy. PNA: PT was 04/30/2025: A.m.: Airvo 40 L, 45% FiO2 saturations 97% 05/01/2025: 8:00 a.m. Airvo 35 L, 45% FiO2 saturations 92% 05/02/2025: 8:00 a.m. Airvo 45 L, 45% FiO2, saturation 98% 05/04: Back to baseline 3 L nasal cannula As per pulmonology recommendation patient will be discharged with the following recommendation Levaquin 750 mg per tube q.day x5 days Trelegy 100 - 62.5-25 at 1 puff q.day Albuterol nebulizer 2.5 mg q.4 hours p.r.n. shortness of breath or wheezing Guaifenesin 400 mg per tube q.6 hours p.r.n. congestion Oxygen at rest and with activity per formal home O2 assessment which pulmonology have ordered. When he naps or sleeps oxygen 3 L nasal cannula. On the day of discharge, the patient was seen and examined. Vital signs were stable. Physical exam were stable and labs were reviewed at length. Discharge instructions, medications, and follow-up appointments were discussed with the patient at length and all day questions were answered. ER warnings were given. Status at Discharge Cognitive/behavioral status at discharge: Stable Time Spent with Patient Time attestation: Total time spent providing and/or coordinating discharge services: 45 minutes Exam Const: General: comfortable and no acute distress Other: A&O x3 HENMT: Other: Poor dentition, dry mucous membranes Eyes: Pupils: Equal, round and reactive pupils present Neck: Neck: supple Resp: Other: Decreased air intake Cardio: Rate: tachycardic Rhythm: regular rhythm GI: Inspection: non-distended Other: Erythema surrounding the orifice of the PEG tube, improved. Neuro: Cranial nerves: Yes Equal, round and reactive pupils present Motor exam (neuro): 5/5 motor strength present throughout Extrem: General: no edema DS: Data Data Completed and Pending Labs on day of discharge: Labs from last 24 hours 05/04/25 05/04/25 05/03/25 04:59 04:59 13:29 WBC 8.8 RBC 2.98 L Hgb 8.6 L Hct 28.3 L MCV 95.0 MCH 28.9 MCHC 30.4 L RDW 19.4 H Plt Count 328 MPV 9.4 Puncture Site Left radial ABG pH 7.507 H* ABG pCO2 43.2 ABG pO2 63.1 L ABG PO2/FiO2 Ratio 2.25 ABG HCO3 33.5 H ABG O2 Saturation 93.9 L ABG O2 Content 13.2 L ABG Base Excess 9.5 A-a Gradient 85.6 Oxyhemoglobin 92.5 Total Hemoglobin 10.1 L O2 Delivery Device Nasal cannula O2 Liters/Min 2.0 FiO2 28 Sodium 135 L Potassium 3.6 Chloride 98 Carbon Dioxide 32 H Anion Gap 5 BUN 24 H Creatinine 0.45 L Estim Creat Clear Calc 114 Estimated GFR > 60 Glucose 81 Calcium 8.5 Total Bilirubin 0.5 AST 27 ALT 27 Alkaline Phosphatase 90 Total Protein 6.0 L Albumin 3.1 L [id number] Pending Pending Alpha-1-AT Phenotype Pending Procalcitonin Chlamy pneumoniae PCR Adenovirus (PCR) B. pertussis DNA (PCR) B.parapertussis DNA PCR Coronavirus OC43 (PCR) Coronavirus HKU1 (PCR) Coronavirus 229E (PCR) Coronavirus NL63 (PCR) Human Metapneumovir PCR Influenza A (H1) PCR Influ A (H1/09) PCR Influenza A (H3) PCR Influenza Type A (PCR) Influenza Type B (PCR) M.pneumoniae IgM Titer M. pneumoniae (PCR) Parainfluenza 1 (PCR) Parainfluenza 2 (PCR) Parainfluenza 3 (PCR) Parainfluenza 4 (PCR) RSV (PCR) Entero/Rhino (PCR) SARS-CoV-2 (PCR) 05/03/25 05/03/25 04/30/25 13:20 06:26 17:59 WBC RBC Hgb Hct MCV MCH MCHC RDW Plt Count MPV Puncture Site ABG pH ABG pCO2 ABG pO2 ABG PO2/FiO2 Ratio ABG HCO3 ABG O2 Saturation ABG O2 Content ABG Base Excess A-a Gradient Oxyhemoglobin Total Hemoglobin O2 Delivery Device O2 Liters/Min FiO2 Sodium Potassium Chloride Carbon Dioxide Anion Gap BUN Creatinine Estim Creat Clear Calc Estimated GFR Glucose Calcium Total Bilirubin AST ALT Alkaline Phosphatase Total Protein Albumin [id number] Alpha-1-AT Phenotype Procalcitonin 0.4 Chlamy pneumoniae PCR Pending Adenovirus (PCR) Pending B. pertussis DNA (PCR) Pending B.parapertussis DNA PCR Pending Coronavirus OC43 (PCR) Pending Coronavirus HKU1 (PCR) Pending Coronavirus 229E (PCR) Pending Coronavirus NL63 (PCR) Pending Human Metapneumovir PCR Pending Influenza A (H1) PCR Pending Influ A (H1/09) PCR Pending Influenza A (H3) PCR Pending Influenza Type A (PCR) Pending Influenza Type B (PCR) Pending M.pneumoniae IgM Titer <770 M. pneumoniae (PCR) Pending Parainfluenza 1 (PCR) Pending Parainfluenza 2 (PCR) Pending Parainfluenza 3 (PCR) Pending Parainfluenza 4 (PCR) Pending RSV (PCR) Pending Entero/Rhino (PCR) Pending SARS-CoV-2 (PCR) Pending Preliminary micro results at discharge 04/29/25 22:34 Blood Culture - Preliminary Blood 04/29/25 22:30 Blood Culture - Preliminary Blood Discharge Plan Discharge Attending physician on discharge: Augustin Vazquez Consulting providers: Solomon Kasper Discharging Clinician: Augustin Vazquez Anticipated Discharge Date/Time: 05/04/25 14:58 Patient Disposition: Home with Home Health Service Activity: other - see discharge instructions Diet: other - see discharge instructions Discharge Instructions: Per Care Coordination: [facility] will resume services at discharge. [facility] will follow for RN and PT/OT eval and treat. [facility] can be contacted at . Nursing please fax discharge paperwork to . Please follow-up with the oncologist, fly finisher and PCP within a week upon discharge Please complete the course of levofloxacin for 5 days In the event of fever, shortness of breath or chest pain please visit nearby ED As per pulmonology recommendation patient will be discharged with the following recommendation Levaquin 750 mg per tube q.day x5 days Trelegy 100 - 62.5-25 at 1 puff q.day Albuterol nebulizer 2.5 mg q.4 hours p.r.n. shortness of breath or wheezing Guaifenesin 400 mg per tube q.6 hours p.r.n. congestion Oxygen at rest and with activity per formal home O2 assessment which pulmonology have ordered. When he naps or sleeps oxygen 3 L nasal cannula. Patient Instructions: Antibiotic Form, COPD (Chronic Obstructive Pulmonary Disease) (GEN), Pneumonia (GEN) Patient Language: Croatian Stand Alone Forms: General Discharge Information Follow-up/Referrals: Pal Matthews MD [Primary Care Provider] - Solomon Kasper MD [Physician] - Discharge Medications: New guaifenesin 100 mg/5 mL Liquid 400 mg feeding tube Q4HR Qty: 100 0RF levofloxacin 250 mg/10 mL solution 750 mg PO DAILY Qty: 480 0RF Rx Instructions: Please complete the course for 5 days Continued Trelegy Ellipta 100-62.5-25 mcg blister with device 1 inh inhalation Q24H clotrimazole 10 mg alia 10 mg mucous membrane TID Qty: 30 0RF albuterol sulfate 0.63 mg/3 mL solution for nebulization 0.63 mg continuous nebulization Q6-8H PRN (Reason: bronchospasm) phenelzine 15 mg tablet 15 mg PO TID Qty: 270 1RF lorazepam 2 mg tablet 2 mg PO BID PRN (Reason: Anxiety) Qty: 60 2RF Patient Comments: . Jevity 1.5 Gordo 0.06 gram-1.5 kcal/mL liquid 1 ea feeding tube QID Qty: 37763 2RF Brenden Liquid Protein 30 ml BYMOUTH 2XD Qty: 60 12RF midodrine 5 mg tablet 5 mg PO TID Qty: 90 1RF Rx Instructions: do not give last dose of day after 6PM or within 4 hrs of bedtime Discontinued ipratropium-albuterol 0.5 mg-3 mg(2.5 mg base)/3 mL solution for nebulization 3 ml inhalation Q6H PRN (Reason: shortness of breath or wheezing) Qty: 180 1RF Date of admission: 04/30/25 09:34 Primary Care Provider: Pal Matthews Admitting Provider: Neida Velez Attending physician on admission: Neida Velez Condition: Serious
[2025-05-04] MEDS: HEPARIN SODIUM LOCK FLUSH 500 UNITS/5 ML SYRINGE IV PUSH (15:45)
== END 2025-05-04 16:15 | disposition home health service (06) | DRG 871 ==
LOC: ANHED 04-30 01:41 → ANHIMU 04-30 03:00 → ANH2MED 05-04 12:05 → ANHIMU 05-17 07:17
PROVIDERS: Internal Medicine Pulmonary Disease; Nurse Practitioner; Admitting Provider General Practice; Emergency Provider Student in an Organized Health Care Education/Training Program; PCP Family Medicine; Visit Provider General Practice
DX: A41.9 Sepsis, unspecified organism (principal); J18.9 Pneumonia, unspecified organism; J96.21 Acute and chronic respiratory failure with hypoxia; J96.22 Acute and chronic respiratory failure with hypercapnia; K94.22 Gastrostomy infection; J44.1 Chronic obstructive pulmonary disease with (acute) exacerbation; J44.0 Chronic obstructive pulmonary disease with (acute) lower respiratory infection; L03.311 Cellulitis of abdominal wall; E87.5 Hyperkalemia; D64.9 Anemia, unspecified; K21.9 Gastro-esophageal reflux disease without esophagitis; R13.19 Other dysphagia; E83.52 Hypercalcemia; E78.5 Hyperlipidemia, unspecified; F41.8 Other specified anxiety disorders; M19.90 Unspecified osteoarthritis, unspecified site; Z66 Do not resuscitate; R91.1 Solitary pulmonary nodule; Z85.89 Personal history of malignant neoplasm of other organs and systems; Z85.118 Personal history of other malignant neoplasm of bronchus and lung; Z85.46 Personal history of malignant neoplasm of prostate; Z87.891 Personal history of nicotine dependence; Z85.820 Personal history of malignant melanoma of skin; Z85.828 Personal history of other malignant neoplasm of skin; Z90.49 Acquired absence of other specified parts of digestive tract; Z99.81 Dependence on supplemental oxygen
CPT/HCPCS: 36415; 36600; 70450; 71045; 71275; 72125; 80048; 80053; 80069; 81001; 82103; 82104; 82805; 82948; 83605; 83735; 83880; 84145; 84484; 85014; 85018; 85025; 85027; 86140; 86738; 87040; 87070; 87449; 87637; 87641; 87899; 93005; 93306; 94618; 94640; 94669; 94762; 96365; 96366; 96367; 96368; 96375; 97161; 97165; 97530; 97535; 99285; A9270; G0378; J0456; J0612; J0692; J0696; J1642; J1815; J1938; J2919; J3373; J7030; J7040; J7050; J7120; J7512; Q9967

== ENCOUNTER 2025-05-18 08:56 | Outpatient (CLI) | payer MEDICARE, SELFPAY ==
--- NOTE | ~2025-05-18 | PE_ITS ---
EXAMINATION: PET skull to mid thigh DATE: 05/18/2025 10:57 INDICATION: Lung cancer TECHNIQUE: Blood glucose level was 96 mg/dL. 10.453 mCi of 18-fluorodeoxyglucose (18-FDG) was administered i.v. Low dose computed tomography (CT) images were acquired from the base of the brain to the proximal thighs for attenuation correction and anatomic localization. Positron emission tomography (PET) images were acquired in the same distribution beginning 63 minutes after injection. Images including fused PET/CT images were reconstructed in axial, coronal, and sagittal planes. Automated exposure control technique was employed. The dose- length product was 570.22mGy-cm. COMPARISON: None FINDINGS: Head/neck: There is symmetric increased activity in the oral and nasal cavities and multiple muscles in the head and neck without CT correlate, likely physiologic. There is likely salivary activity along the esophagus. Again seen is asymmetric loss of subcutaneous fat at the left side of the neck and atrophic versus absent left sternocleidomastoid muscle and left internal jugular vein for prior surgery. No pathologically enlarged cervical lymphadenopathy or suspicious foci of increased FDG uptake in the visualized head or neck. Moderate cervical spondylosis. Chest: Moderate emphysema. Interval decrease in size of a previously 5.3 x 5.2 cm mass at the medial aspect of the right apex which currently measures 4.3 x 3.6 cm with no central cavitation. There is some persistent peripheral increased FDG uptake with maximal SUV of 7.3 which is decreased from prior maximum SUV of 14.1. Again noted is cortical erosion at the adjacent right lateral margin of the T2 and T3. Interval progression of a T1 burst fracture now with 80% anterior vertebral body height loss. There is persistent increased uptake in the posterior elements of T7 more prominent on the left with maximal SUV of 12.0. There are approximately 20 FDG avid nodules scattered throughout the right upper lobe which measure up to 1.3 cm in maximal diameter and with maximal SUV values of up to 18. 5 mm mildly FDG avid lymph node in the posterior segment of the left upper lobe with maximal SUV of 3.9. There is volume loss and groundglass opacities in the left lower lobe with mucous plugging of the left lower lobar and multiple segmental and subsegmental bronchi. Within the region of consolidation at the posterior lateral sulcus of the left lower lobe there is approximately 1 cm region of increased uptake with maximal SUV of 6.1. No pleural effusion. Heart size is normal. No pericardial effusion. Calcified left hilar lymph nodes consistent with old granulomatous disease. There are multiple mildly FDG avid, normal-sized mediastinal lymph nodes with maximal SUV values of up to 3.4. Abdomen/pelvis/proximal thighs: Percutaneous gastrostomy tube bulb within the gastric antrum. Physiologic renal accumulation and excretion of FDG activity in the kidneys, bladder and along portions of ureters. Photopenic defects associated with bilateral low- attenuation renal cysts the largest on the left measuring up to 4.0 cm. Small metallic densities in the region of the prostate which could represent surgical clips related to prior prostatectomy or fiducial markers. There is pelvic floor relaxation. Normal degree and heterogenous pattern of increased uptake throughout the liver without radiologic correlate or dominant FDG avid lesion. Numerous small hepatic and splenic calcific lesions consistent with old granulomatous disease. There are few calcified gallstones in the dependent aspect of the otherwise normal gallbladder. The pancreas and bilateral adrenal glands are normal. Mild uptake scattered throughout the bowels without radiologic correlate, also likely physiologic. No other abnormal foci of increased FDG uptake or pathologically enlarged lymphadenopathy in the abdomen, pelvis or proximal thighs. Thoracolumbar posterior spinal fusion with bilateral vertical shira, laminar looks, wires and pedicle screw fixation which span a chronic T12 burst fracture. There is some extravasated activity at the site of injection at the right antecubital fossa. Increased uptake along the posterior margin of the right greater trochanter without radiologic correlate consistent with trochanteric bursitis. Moderate lumbar spondylosis. IMPRESSION: 1. Interval decrease in size and degree of uptake associated with a centrally necrotic now 4.3 x 3.6 cm FDG avid mass at the medial right apex consistent with reported primary lung cancer which appears to invade the immediately adjacent T2 and T3 vertebral bodies. 2. Interval development of at least 20 FDG avid nodules measuring up to 1.3 cm diameter with maximal SUV of 18 suspicious for metastatic disease with differential including less likely multifocal pneumonia. Additional small FDG avid nodule in the left upper lobe and FDG avid lesion at the posterior lateral sulcus of the left lower lobe which certainly could be metastatic or infectious/inflammatory. 3. Multiple normal-sized, mildly FDG avid mediastinal and bilateral hilar lymph nodes which could be either reactive or early metastatic. Reviewed, dictated and finalized at location A. IMPRESSION: 1. Interval decrease in size and degree of uptake associated with a centrally n ecrotic now 4.3 x 3.6 cm FDG avid mass at the medial right apex consistent with reported primary lung cancer which appears to invade the immediately adjacent T2 and T3 vertebral bodies. 2. Interval development of at least 20 FDG avid nodules measuring up to 1.3 cm diameter with maximal SUV of 18 suspicious for metastatic disease with differen tial including less likely multifocal pneumonia. Additional small FDG avid nodu le in the left upper lobe and FDG avid lesion at the posterior lateral sulcus o f the left lower lobe which certainly could be metastatic or infectious/inflamm atory. 3. Multiple normal-sized, mildly FDG avid mediastinal and bilateral hilar lymph nodes which could be either reactive or early metastatic.
--- OUTSIDE RECORDS SUMMARY | 2025-05-18 09:09 | XMS_ITS | Continuity of Care Document ---
Author Name [facility] Organization [facility] Care Team Providers Care Wireless Consultant Name Role Phone [facility] Unavailable Unavailable Problems Combined list of problems from Department of Defense and [facility] Affairs facilities. It does not include entries that were removed or entered in error. 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 [facility] Folliculitis Active 1 Condition [facility] Malignant neoplasm of skin Active 1 Condition [facility] Melanoma of Skin Active 1 Condition [facility] Anxiety Disorder NOS Active 2 Condition [facility] Anxiety Disorder * (ICD-9-CM 300.00) Active Condition [facility] Anxiety Disorder NOS Active Condition [facility] Basal cell carcinoma of skin Active Condition [facility] Depression * (ICD-9-CM 300.4/311.) Active Condition [facility] Depression * (ICD-9-CM 311./300.4) Active Condition [facility] Dysthymic Disorder (ICD-9-CM 300.4) Active Condition [facility] Elevated PSA Active Condition [facility] Head and Neck Cancer, Unknown Site Active Condition Dec 21, 2008 Entered By: TIANNA LEBLANC Comment: has received radiation post neck surgeryDec 21, 2008 Entered By: TIANNA LEBLANC Comment: salivary glands goneDec 21, 2009 Entered By: TIANNA LEBLANC Comment: SCC, necklymph nodes, left nipple,2001Dec 21, 2009 Entered By[facility] Entered By: TIANNA LEBLANC Comment: records scanned [facility] Hyperkalemia * (ICD-9-CM 276.7) Active Condition [facility] Impacted Cerumen Active Condition [facility] Thong [facility] Internal hemorrhoids without mention of complication (ICD-9-CM 455.0) Active Condition [facility] Low Back Pain Active Condition [facility] Major Depressive Disorder, Recurrent Active Condition [facility] Major Depressive Disorder, Recurrent, Severe, without Psychotic Features (ICD-9- Active Condition [facility] Melanoma of Skin Active Condition Dec 21, 2008 Entered By: TIANNA LEBLANC Comment: Dr Day, several removed [facility] Memory loss Active Condition [facility] Mood Disorder NOS Active Condition [facility] Nicotine Dependence Active Condition Dec 21, 2009 Entered By: TIANNA LEBLANC Comment: declines treatment [facility] PANIC D/O W/0 AGORA Active Condition [facility] Personal History of Colonic Polyps Active Condition Nov 08, 2010 Entered By: ROMAINE ROBLES Comment: Due for repeat colonoscopy 08/2011 - 09/2011May 2011 Entered By: ANNMARIE GUARDADO Comment: repeat colonoscopy due in 08/2012 [facility] Prostate cancer Active Condition [facility] Sensory neuropathy Active Condition [facility] Tobacco use Active Condition [facility] Tobacco Use * (ICD-9-CM 305.1) Active Condition [facility] Vitamin D deficiency (SNOMED CT 52885580) Active Condition [facility] Medications Combined list of outpatient medications from [...] DAY ORAL ACTIVE CAR FIGUEREDO MD 2018 [facility] Immunizations Combined list of available immunizations from the Department of [facility] and Veterans Affairs facilities. Immunization Series Date Given Administered By Site Reaction Lot Number CVX Code Drug Tubing Supervisor Status Comments Source COVID-19 (MODERNA), MRNA, LNP-S, PF, 100 MCG/0.5 ML DOSE 2 2020 207 complet ed MOD; [id number]; 1 [facility] COVID-19 (MODERNA), MRNA, LNP-S, PF, 100 MCG/0.5 ML DOSE 1 2020 207 complet ed MOD; [id number]; 1 [facility] TDAP 2012 115 complet ed Left Deltoid [facility] Procedures Combined list of: 1) Procedures from Department of Veterans Affairs facilities [facility], not all VA non-surgical procedures are included; 2) All procedures from the Department of Defense facilities. Procedure Procedure Type Code Date Perfomer Comments Sourc e COLLECTION OF VENOUS BLOOD B Y VENIPUNCTURE 11/22/2005 [facility] COLLECTION OF VENOUS BLOOD B Y VENIPUNCTURE 05/16/2005 [facility] Social History Combined list of available smoking, tobacco, and other social history from Department of Defense and Veterans Affairs facilities. 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 06/22/2019 [facility] History of tobacco use VA-TOBACCO USER EVERY DAY 02/24/2018 [facility] History of tobacco use TOBACCO USER OFFERED MEDS 11/27/2017 [facility] History of tobacco use QUIT TOBACCO >7 YEARS AGO 11/30/2014 [facility] History of tobacco use CURRENT TOBACCO USER 01/04/2014 Demetrio PRISCILLA [facility] History of tobacco use CURRENT TOBACCO USER 01/20/2013 [facility] History of tobacco use CURRENT TOBACCO USER 06/25/2012 Demetrio PRISCILLA [facility] History of tobacco use CURRENT TOBACCO USER 07/19/2011 [facility] History of tobacco use CURRENT TOBACCO USER 07/17/2010 [facility] History of tobacco use CURRENT TOBACCO USER 12/20/2009 [facility] Mc[facility] History of tobacco use CURRENT TOBACCO USER 12/21/2008 [facility] H[facility] History of tobacco use CURRENT TOBACCO USER 10/28/2006 [facility] History of tobacco use PT REFUSED SMOKING CESSATION CLASSES 02/04/2004 [facility] History of tobacco use CURRENT TOBACCO USER 07/03/2001 [facility] This section is an empty social history section. DoD
== END 2025-05-18 08:57 | disposition home or self-care (01) ==
PROVIDERS: PCP Family Medicine; Visit Provider Internal Medicine Hematology & Oncology
DX: C34.11 Malignant neoplasm of upper lobe, right bronchus or lung (principal)
CPT/HCPCS: 78815; A9552